=== PATIENT | female | born 1955 | race Caucasian/White ===

== ENCOUNTER → 2016-10-04 | Outpatient (CLI) | payer OTHER ==
[2014-07-23 14:20] VITALS: BP 117/63
--- NOTE | 2016-10-04 11:27 | MG ---
HISTORY: Followup from right stereotactic breast biopsy and left-sided surgical biopsy. Both biopsi es were benign. Comparison: July 28, 2015 and August 05, 2015 FINDINGS: Bilateral CC and MLO projections of the right and left breast were obtained. Scattered fibroglandul ar tissue is seen to be present. Calcifications in the right central breast and been removed. A sma ll metallic clip is seen to marked the area. The mass in the left breast with calcifications is no l onger present and has been removed also. No new dominant mass is seen. No areas of architectural dis tortion are appreciated.. No skin thickening or nipple retraction is appreciated. No pathological lymphadenopathy can be identified. Benign-appearing calcifications scattered throughout the right a nd left breasts are observed. IMPRESSION: NO RADIOGRAPHIC EVIDENCE OF MALIGNANCY. ACR CATEGORY 2 - benign findings. FOLLOW-UP EXAM 1 YEAR. Diagnostic CAD was utilized and reviewed. * 0 (ZERO) - ASSESSMENT INCOMPLETE; ADDITIONAL IMAGING IS NEEDED. * 1/ (ONE) - NEGATIVE. * 2/II (TWO) - BENIGN FINDINGS. * 3/III (THREE) - PROBABLY BENIGN FINDING; SHORT INTERVAL FOLLOW-UP SUGGESTED. * 4/IV (FOUR) - SUSPICIOUS ABNORMALITY; BIOPSY SHOULD BE CONSIDERED. * 5/V - HIGHLY SUSPICIOUS OF MALIGNANCY; BIOPSY SHOULD BE PERFORMED. A NEGATIVE X-RAY REPORT SHOULD NOT DELAY BIOPSY IF A DOMINANT OR CLINICALLY SUSPICIOUS MASS IS PRESENT; 4 TO 8 PERCENT OF CANCERS ARE NOT IDENTIFIED BY X-RAY. A NEG ATIVE REPORT MAY REINFORCE THE CLINICAL IMPRESSION. ADENOSIS AND DENSE BREASTS MAY OBSCURE AN UNDER LYING NEOPLASM. Reported By:
== END ==
LOC: RAD 09:42
PROVIDERS: ATTEND Nurse Practitioner Family
DX: R92.8 Other abnormal and inconclusive findings on diagnostic imaging of breast (principal)
CPT/HCPCS: 77066

== ENCOUNTER → 2017-08-10 | Outpatient (CLI) | payer OTHER, MEDICAID ==
[2014-07-23 14:20] VITALS: BP 117/63
--- NOTE | 2017-08-10 11:54 | RAD ---
HISTORY: Lumbosacral radiculopathy Study: Three views of the lumbar spine Comparison: None Findings: Dextrocurvature of the lumbar spine is noted and may be accentuated by patient position. The visualiz ed bony structures demonstrate diffuse osteopenia. The lumbar vertebral body heights are relatively m aintained. Degenerate facet changes are seen throughout the lumbar spine. Multilevel intervertebral d isc space narrowing is noted. Atherosclerotic changes are seen within the visualized aorta. Postsurgi felicity changes of the pelvis are noted. IMPRESSION: Degenerative changes as noted above. Reported By:
--- NOTE | 2017-08-10 13:08 | RAD ---
HISTORY: Bilateral hip pain. No history trauma given. Study: Bilateral hips: Two views each Comparison: CT scan from 09/24/2013 Findings: Moderate osteopenia is noted. The pelvic ring appears to be intact. Sacroiliac joints are intact. Surgical clips overlie the anatomic pelvis. There appears to be a moderate amount of gas, most likel y in colon overlying both hips. This is consistent with bowel containing bilateral hernias. This is well demonstrated on a CT scan from 09/24/2013 Right hip shows mild acetabular spurring and sclerosis. Mild joint space narrowing is noted. The fe moral head contour and femoral neck are intact. The left hip shows mild acetabular spurring and mild sclerosis. Mild joint space narrowing is noted. The femoral head contour and femoral neck are intact. IMPRESSION: 1. Mild degenerative changes both hips. 2. There is bowel overlying both hip joints consistent with large hernias containing bowel. This preciado s been well demonstrated on a prior CT scan. Reported By:
== END ==
LOC: RAD 10:13
PROVIDERS: ATTEND Nurse Practitioner Family
DX: M54.17 Radiculopathy, lumbosacral region (principal); M25.551 Pain in right hip; M25.552 Pain in left hip; R26.2 Difficulty in walking, not elsewhere classified
CPT/HCPCS: 72100; 73521

== ENCOUNTER → 2017-08-15 | Outpatient (CLI) | payer OTHER, MEDICAID ==
[2014-07-23 14:20] VITALS: BP 117/63
--- NOTE | 2017-08-15 16:43 | CT ---
HISTORY: Lumbar radiculopathy and difficulty walking. Study: CT lumbar spine without contrast Comparison: Lumbar spine series dated August 10, [address] abdomen/pelvis dated September 24, 2013. Technique: Multiple axial images of the lumbar spine were obtained from the thoracolumbar junction t o the sacrum without the administration of IV contrast. Sagittal and coronal reformats were performe d and reviewed. Dose reduction techniques including Automated Exposure Control (AEC) and adjustment of mA and kV were utilized. Findings: Mild dextrocurvature of the lumbar spine, which may represent positioning versus muscle spasm. No acu te fracture or listhesis. Multilevel llwt-pe-yufodach degenerative changes of the lumbar spine. No si gnificant neural foraminal narrowing or spinal canal stenosis. Vascular calcifications without eviden ce of aneurysmal dilatation. Cortical defects within the right kidney with associated nonobstructing nephroliths, likely representing remote infection. Simple appearing cysts are seen within the liver. Remaining abdominal structures are unremarkable. IMPRESSION: Chronic findings as above. Reported By:
== END ==
LOC: RAD 12:47
PROVIDERS: ATTEND Nurse Practitioner Family
DX: M54.17 Radiculopathy, lumbosacral region (principal)
CPT/HCPCS: 72131

== ENCOUNTER 2018-08-09 09:58 | Inpatient (IN) ==
[2018-08-09 10:08] VITALS: BMI 53.0
--- NOTE | 2018-08-09 10:42 | DR.DIZZY ---
HPI Time seen Time Seen by Provider: 08/09/18 10:40 PCP Primary Care Physician: HAL GARZA Complaint Chief Complaint:: PT. C/O INCREASED WEAKNESS AND FREQUENT FALLS. PT. STATES THAT SHE FELL 2 DAYS AGO AND IS UNABLE TO AMBULATE ON HER OWN. SHE REPORTS NEEDING MAXIMUM ASSISTANCE TO PERFORM ADL'S. Nurses Notes Reviewed Nurses Notes Review: Yes Source History Provided: Patient and EMS Mode of Arrival Mode of Arrival: EMS Timing Onset of Chief Complaint: 08/07/18 PMH PMH Past Medical History: Yes Past Medical History: Angina, Anxiety, Arthritis, Asthma, COPD, Depression, Diabetes, Dyslipidemia, GERD, Headaches, Hypothyroidism and Kidney Stones Past Surgical History: Yes Surgical History: Abdominal Surgery, Bowel Resection, Hysterectomy, Ortho Surgery, Tonsillectomy, Lithotripsy and Other Family History History of Family Medical Conditions: Yes Family Medical History: Diabetes Mellitus and [place] Social History Does patient currently use any type of tobacco product: No Have you used tobacco products in the last 12 months: No Type of Tobacco Use: None Does any household member use tobacco: No Alcohol Use: None Do you use any recreational Drugs:: No Lives With: Alone Lives Where: Home infectious screening In the last 2 months have you had wt loss of >10#?: NO Have you had fever, night sweats or hemotysis?: No Have you traveled outside the country in the last 6 months?: No Isolation: Standard PE Vital Signs Vitals: Temperature 97.7 F Pulse Rate [Right Radial] 82 Pulse Rate 87 Respiratory Rate 16 Blood Pressure [Right Arm] 104/51 Blood Pressure [Left Arm] 179/72 Blood Pressure 134/77 O2 Sat by Pulse Oximetry 95 ROR Labs Reviewed Result Diagrams: 08/09/18 10:30 08/09/18 10:30 Laboratory: WBC 9.8 X10^3/uL (3.6-10.0) 08/09/18 10:30 RBC 3.63 X10^6/uL (3.5-5.4) 08/09/18 10:30 Hgb 10.4 g/dL (12.0-16.0) L 08/09/18 10:30 Hct 32.3 % (36.0-47.0) L 08/09/18 10:30 MCV 88.9 fL (80.0-100.0) 08/09/18 10:30 MCH 28.8 pg (27.0-34.0) 08/09/18 10:30 MCHC 32.3 g/dL (33.0-35.0) L 08/09/18 10:30 RDW 15.1 % (11.6-16.5) 08/09/18 10:30 Plt Count 330 X10^3/uL (150.0-450.0) 08/09/18 10:30 MPV 8.5 fL (7.4-11.0) 08/09/18 10:30 Neut % (Auto) 73.1 % (42.0-75.0) 08/09/18 10:30 Lymph % (Auto) 15.3 % (21.0-51.0) L 08/09/18 10:30 [place] % (Auto) 7.6 % (0.0-13.0) 08/09/18 10:30 Eos % (Auto) 3.4 % (0.9-2.9) H 08/09/18 10:30 Baso % (Auto) 0.6 % (0.2-1.0) 08/09/18 10:30 Neut # (Auto) 7.2 x10^3/uL (2.2-4.8) H 08/09/18 10:30 Lymph # (Auto) 1.5 X10^3/uL (1.3-2.9) 08/09/18 10:30 [place] # (Auto) 0.7 x10^3/uL (0.3-0.8) 08/09/18 10:30 Eos # (Auto) 0.3 x10^3/uL (0.0-0.2) H 08/09/18 10:30 Baso # (Auto) 0.1 X10^3/uL (0.0-0.1) 08/09/18 10:30 Absolute Nucleated RBC 0.0 /100WBC 08/09/18 10:30 INR Target Range - 08/09/18 10:30 INR 0.99 (0.8-1.3) 08/09/18 10:30 APTT 28.7 SECONDS (22.9-36.5) 08/09/18 10:30 PTT Comment - 08/09/18 10:30 Sodium 137 mmol/L (136-145) 08/09/18 10:30 Corrected Sodium 145 mmol/L (136-145) 08/09/18 10:30 Potassium 4.4 mmol/L (3.5-5.1) 08/09/18 10:30 Chloride 100 mmol/L (98-107) 08/09/18 10:30 Carbon Dioxide 31.9 mmol/L (21-32) 08/09/18 10:30 BUN 36 mg/dL (7-18) H 08/09/18 10:30 Creatinine 1.75 mg/dL (0.55-1.02) H 08/09/18 10:30 Est GFR (MDRD) Af Amer 38 (>60) L 08/09/18 10:30 Est GFR (MDRD) Non-Af 31 (>60) L 08/09/18 10:30 Glucose 414 mg/dL (65-99) H 08/09/18 10:30 POC Glucose (mg/dL) 384 mg/dL (65-99) H 08/09/18 13:05 Lactic Acid 1.5 mmol/L (0.4-2.0) 08/09/18 10:30 Calcium 9.6 mg/dL (8.5-10.1) 08/09/18 10:30 Corrected Calcium 10.5 mg/dL (8.5-10.1) H 08/09/18 10:30 Total Bilirubin 0.30 mg/dL (0.2-1.0) 08/09/18 10:30 AST 19 Units/L (15-37) 08/09/18 10:30 ALT 14 Units/L (12-78) 08/09/18 10:30 Alkaline Phosphatase 60 Units/L (46-116) 08/09/18 10:30 Creatine Kinase 464 Units/L (26-192) H 08/09/18 10:30 CK-MB (CK-2) 5.1 ng/mL (0-4.0) H* 08/09/18 10:30 CK/CKMB % Calc 1.1 % (<4) 08/09/18 10:30 Troponin I < 0.02 ng/mL (0-1.5) 08/09/18 10:30 C-Reactive Protein 102.40 mg/L (0-3.0) H 08/09/18 10:30 B-Natriuretic Peptide 15.5 pg/mL (0-79) 08/09/18 10:30 Total Protein 6.8 g/dL (6.4-8.2) 08/09/18 10:30 Albumin 2.9 g/dL (3.4-5.0) L 08/09/18 10:30 Globulin 3.9 g/dL (2.5-4.5) 08/09/18 10:30 Albumin/Globulin Ratio 0.7 Ratio (1.1-2.1) L 08/09/18 10:30 Amylase 8 Units/L (25-115) L 08/09/18 10:30 Lipase 140 Units/L (73-393) 08/09/18 10:30 Specimen Type Catherized urine 08/09/18 10:56 Urine Color Straw (YELLOW) 08/09/18 10:56 Urine Appearance Slightly hazy (CLEAR) 08/09/18 10:56 Urine pH 5.0 (5.0 - 8.0) 08/09/18 10:56 Ur Specific [place] 1.010 (1.000-1.030) 08/09/18 10:56 Urine Protein Negative (NEGATIVE) 08/09/18 10:56 Urine Glucose (UA) 4+ (NEGATIVE) 08/09/18 10:56 Urine Ketones Negative (NEGATIVE) 08/09/18 10:56 Urine Occult Blood 2+ (NEGATIVE) 08/09/18 10:56 Urine Nitrite Negative (NEGATIVE) 08/09/18 10:56 Urine Bilirubin Negative (NEGATIVE) 08/09/18 10:56 Urine Urobilinogen Normal (NORMAL) 08/09/18 10:56 Ur Leukocyte Esterase 2+ (NEGATIVE) 08/09/18 10:56 Urine RBC 3-5 /HPF (NONE SEEN) 08/09/18 10:56 Urine WBC 10-20 /HPF (NONE SEEN) 08/09/18 10:56 Ur Squamous Epith Cells Few /HPF (NEGATIVE) 08/09/18 10:56 Urine Bacteria Trace /HPF (NEGATIVE) 08/09/18 10:56 Ur Culture Indicated? Yes/culture set up 08/09/18 10:56 Acetone, Semi-Quant Negative (NEGATIVE) 08/09/18 10:30
[2018-08-09 10:56] LABS: BASOPHILS # (AUTO) 0.1 X10^3/uL (0.0-0.1); BASOPHILS % (AUTO) 0.6 % (0.2-1.0); EOSINOPHILS # (AUTO) 0.3 x10^3/uL (0.0-0.2); EOSINOPHILS % (AUTO) 3.4 % (0.9-2.9); HEMATOCRIT 32.3 % (36.0-47.0); HEMOGLOBIN 10.4 g/dL (12.0-16.0); LYMPHOCYTES # (AUTO) 1.5 X10^3/uL (1.3-2.9); LYMPHOCYTES % (AUTO) 15.3 % (21.0-51.0); MEAN CORPUSCULAR HEMOGLOBIN 28.8 pg (27.0-34.0); MEAN CORPUSCULAR HGB CONC 32.3 g/dL (33.0-35.0); MEAN CORPUSCULAR VOLUME 88.9 fL (80.0-100.0); MEAN PLATELET VOLUME 8.5 fL (7.4-11.0); MONOCYTES # (AUTO) 0.7 x10^3/uL (0.3-0.8); MONOCYTES % (AUTO) 7.6 % (0.0-13.0); NEUTROPHILS # (AUTO) 7.2 x10^3/uL (2.2-4.8); NEUTROPHILS % (AUTO) 73.1 % (42.0-75.0); PLATELET COUNT 330 X10^3/uL (150.0-450.0); RED BLOOD COUNT 3.63 X10^6/uL (3.5-5.4); RED CELL DISTRIBUTION WIDTH 15.1 % (11.6-16.5); WHITE BLOOD COUNT 9.8 X10^3/uL (3.6-10.0)
[2018-08-09] MEDS ORDERED: ZOFRAN INJ 4 MG VIAL IVP ONE (11:05)
[2018-08-09] MEDS ORDERED: ZOFRAN INJ 4 MG VIAL ONE (11:06)
[2018-08-09 11:13] LABS: BLOOD UREA NITROGEN 36 mg/dL (7-18); CALCIUM 9.6 mg/dL (8.5-10.1); CARBON DIOXIDE 31.9 mmol/L (21-32); CHLORIDE 100 mmol/L (98-107); COR NA(FOR HYPERGLY) 145 mmol/L (136-145); CREATININE 1.75 mg/dL (0.55-1.02); SODIUM 137 mmol/L (136-145); TROPONIN I < 0.02 ng/mL (0-1.5); eGFR NON BLACK RACES 31 (>60)
[2018-08-09 11:14] LABS: LACTIC ACID 1.5 mmol/L (0.4-2.0)
[2018-08-09 11:16] LABS: BILIRUBIN,URINE NEGATIVE (NEGATIVE); BLOOD/HEMOGLOBIN,URINE 2+ (NEGATIVE); GLUCOSE, URINE 4+ (NEGATIVE); KETONES,URINE NEGATIVE (NEGATIVE); LEUKOCYTE ESTERASE ,URINE 2+ (NEGATIVE); NITRITES,URINE NEGATIVE (NEGATIVE); PROTEIN,URINE NEGATIVE (NEGATIVE); UROBILINOGEN,URINE NORMAL (NORMAL)
[2018-08-09 11:17] LABS: APPEARANCE,URINE SLIGHTLY HAZY (CLEAR); COLOR,URINE STRAW (YELLOW)
[2018-08-09 11:25] LABS: BACTERIA,URINE TRACE /HPF (NEGATIVE); SQUAMOUS EPITHELIAL CELL,UR FEW /HPF (NEGATIVE)
[2018-08-09 11:36] LABS: ALANINE AMINOTRANSFERASE 14 Units/L (12-78); ALBUMIN 2.9 g/dL (3.4-5.0); ALKALINE PHOSPHATASE 60 Units/L (46-116); ASPARTATE AMINO TRANSFERASE 19 Units/L (15-37); CKMB % 1.1 % (<4); COR CA(FOR HYPOALB) 10.5 mg/dL (8.5-10.1); CREATINE KINASE 464 Units/L (26-192); TOTAL PROTEIN 6.8 g/dL (6.4-8.2)
[2018-08-09 11:42] LABS: CREATINE KINASE MB 5.1 ng/mL (0-4.0)
--- NOTE | 2018-08-09 12:55 | RAD ---
HISTORY: Weakness for 2 days. Study: AP portable chest Comparison: 10/03/2012 Findings: Mild chronic interstitial scarring is noted. Borderline cardiomegaly is noted. A Port-A-Cath is present on the left and the tip is at the cavoatrial junction. Moderate osteopenia is noted. No acute bony abnormalities are identified. IMPRESSION: 1. Borderline cardiomegaly without evidence of failure. 2. No radiographic evidence of acute cardiopulmonary disease or significant change is noted when compared to the prior examination. Reported By:
[2018-08-09] MEDS ORDERED: ROCEPHIN VIAL 1 GRAM ONE (13:06)
[2018-08-09] MEDS ORDERED: ROCEPHIN VIAL 1 GRAM IVP ONE (13:11)
[2018-08-09] MEDS ORDERED: HumuLIN R SUBCUT ONE (13:56)
[2018-08-09] MEDS ORDERED: TYLENOL #3 TAB (W/CODEINE) PO ONE (14:09)
[2018-08-09] MEDS ORDERED: COLACE CAP 100 MG PO PRN (14:38)
[2018-08-09] MEDS ORDERED: ACETAMINOPHEN CODEINE PO PRN (14:38)
[2018-08-09] MEDS ORDERED: VITAMIN D (1.25MG) PO SCH (14:38)
[2018-08-09] MEDS ORDERED: ZOFRAN TAB 4 MG PO PRN (14:38)
[2018-08-09] MEDS: NEURONTIN CAP 400 MG PO SCH ×2 (16:01→21:42)
[2018-08-09] MEDS: NS 1000 ML 1,000 ML IV SCH (16:01)
[2018-08-09] MEDS: BENTYL CAP 10 MG PO SCH ×2 (16:02→21:42)
[2018-08-09] MEDS: HEMOCYTE-PLUS PO SCH (16:02)
[2018-08-09] MEDS: NORCO 10/325 TAB PO PRN (16:46)
[2018-08-09] MEDS: HumuLIN R SC PRN (17:19)
[2018-08-09] MEDS ORDERED: NYSTATIN POWDER ONE (17:24)
[2018-08-09] MEDS ORDERED: NYSTATIN POWDER TOP ONE (17:33)
[2018-08-09 18:14] LABS: CKMB % 0.9 % (<4); CREATINE KINASE 703 Units/L (26-192); TROPONIN I < 0.02 ng/mL (0-1.5)
[2018-08-09 18:18] LABS: CREATINE KINASE MB 6.3 ng/mL (0-4.0)
[2018-08-09] MEDS: LANTUS SC SCH (21:41)
[2018-08-09] MEDS: SNACK - Diabetic Appropriate PO SCH (21:42)
[2018-08-09] MEDS: COREG TAB 3.125 MG PO SCH (21:43)
[2018-08-09] MEDS: ZOCOR TAB 40 MG PO SCH (21:43)
[2018-08-09] MEDS: SINEMET (PLAIN) 10/100 MG PO SCH (21:43)
[2018-08-09] MEDS: MICRO K EXTEN CAP 10 MEQ PO SCH (21:44)
[2018-08-09] MEDS: PEPCID TAB 20 MG PO SCH (21:44)
[2018-08-09] MEDS: TRICOR TAB 160 MG PO SCH (21:44)
[2018-08-09] MEDS: NYSTATIN POWDER TOP SCH (21:44)
[2018-08-09] MEDS: CYMBALTA PO SCH (21:45)
[2018-08-09] MEDS: XANAX PO PRN (21:45)
[2018-08-09] MEDS: GLUCOTROL PO SCH (21:45)
[2018-08-10 00:28] LABS: CKMB % 0.8 % (<4); CREATINE KINASE 661 Units/L (26-192); TROPONIN I < 0.02 ng/mL (0-1.5)
[2018-08-10] MEDS: NS 1000 ML 1,000 ML IV SCH ×2 (03:35→16:42)
[2018-08-10] MEDS: NORCO 10/325 TAB PO PRN ×3 (03:35→20:39)
[2018-08-10] MEDS: NEURONTIN CAP 400 MG PO SCH ×3 (06:10→21:14)
[2018-08-10 06:25] LABS: BASOPHILS # (AUTO) 0.1 X10^3/uL (0.0-0.1); BASOPHILS % (AUTO) 0.8 % (0.2-1.0); EOSINOPHILS # (AUTO) 0.5 x10^3/uL (0.0-0.2); EOSINOPHILS % (AUTO) 5.1 % (0.9-2.9); HEMATOCRIT 30.9 % (36.0-47.0); HEMOGLOBIN 10.2 g/dL (12.0-16.0); LYMPHOCYTES # (AUTO) 1.8 X10^3/uL (1.3-2.9); LYMPHOCYTES % (AUTO) 17.7 % (21.0-51.0); MEAN CORPUSCULAR HEMOGLOBIN 29.2 pg (27.0-34.0); MEAN CORPUSCULAR HGB CONC 32.9 g/dL (33.0-35.0); MEAN CORPUSCULAR VOLUME 88.7 fL (80.0-100.0); MEAN PLATELET VOLUME 8.5 fL (7.4-11.0); MONOCYTES # (AUTO) 0.9 x10^3/uL (0.3-0.8); MONOCYTES % (AUTO) 9.3 % (0.0-13.0); NEUTROPHILS # (AUTO) 6.7 x10^3/uL (2.2-4.8); NEUTROPHILS % (AUTO) 67.1 % (42.0-75.0); PLATELET COUNT 286 X10^3/uL (150.0-450.0); RED BLOOD COUNT 3.49 X10^6/uL (3.5-5.4); RED CELL DISTRIBUTION WIDTH 15.3 % (11.6-16.5)
[2018-08-10 07:27] LABS: ALBUMIN 2.6 g/dL (3.4-5.0); CALCIUM 8.9 mg/dL (8.5-10.1); CARBON DIOXIDE 28.5 mmol/L (21-32); CHOL/HDL RATIO 2.9 (0.0-5.0); CREATININE 1.53 mg/dL (0.55-1.02); MAGNESIUM 1.8 mg/dL (1.7-2.9); TOTAL PROTEIN 6.2 g/dL (6.4-8.2)
[2018-08-10] MEDS: MICRO K EXTEN CAP 10 MEQ PO SCH ×2 (08:53→20:27)
[2018-08-10] MEDS: PEPCID TAB 20 MG PO SCH ×2 (08:53→20:27)
[2018-08-10] MEDS: LASIX PO SCH (08:53)
[2018-08-10] MEDS: HEMOCYTE-PLUS PO SCH (08:53)
[2018-08-10] MEDS: BENTYL CAP 10 MG PO SCH ×4 (08:53→20:26)
[2018-08-10] MEDS: COREG TAB 3.125 MG PO SCH ×2 (08:53→20:27)
[2018-08-10] MEDS: SINEMET (PLAIN) 10/100 MG PO SCH ×2 (08:54→20:27)
[2018-08-10] MEDS: GLUCOTROL PO SCH ×2 (08:54→20:28)
[2018-08-10] MEDS: SYNTHROID 100 mcg TAB PO SCH (08:54)
[2018-08-10] MEDS: LANTUS SC SCH ×2 (08:54→20:30)
[2018-08-10] MEDS: ABILIFY PO SCH (09:04)
[2018-08-10] MEDS: XANAX PO PRN ×2 (09:04→20:39)
[2018-08-10] MEDS: NYSTATIN POWDER TOP SCH ×2 (09:05→20:36)
[2018-08-10] MEDS ORDERED: NORCO 10/325 TAB ONE (11:13)
[2018-08-10] MEDS: ROCEPHIN VIAL 1 GRAM IVP SCH (11:21)
[2018-08-10] MEDS ORDERED: SALINE 3% 15 ML NEB TX NEB ONE (11:56)
[2018-08-10] MEDS: HumuLIN R SC PRN ×2 (12:50→17:46)
[2018-08-10] MEDS ORDERED: FLUVIRIN IM ONE (16:23)
[2018-08-10] MEDS: FLUVIRIN IM ONE ×2 (16:42→16:44)
[2018-08-10] MEDS: LOVENOX INJ 30 MG SYR SC SCH (17:46)
--- NOTE | 2018-08-10 19:01 | DR.H&P ---
H&P - History & Physical for Day of: H&P Date: 08/09/18 - Chief Complaint Chief Complaint: PT. C/O INCREASED WEAKNESS AND FREQUENT FALLS, LOWER LEG REDNESS - History of Present Illness History of Present Illness: 63WF ER ADMISSION WITH CO INCREASED WEAKNESS AND FREQUENT FALLS. PT STATES THAT SHE FELL 2 DAYS AGO AND IS UNABLE TO AMBULATE ON HER OWN. SHE REPORTS NEEDING MAXIMUM ASSISTANCE TO PERFORM ADL'S. PT HAS CO INCREASED SOB AND LOWER EXTREMITY EDEMA. PT CO REDNESS TO LOWER LEGS. PT HAS PMH OF HTN, OA, COPD, [place], MOSES, CAD. PT ADMITTED FOR TREATMENT OF ACUTE ILLNESS INCLUDING UTI AND LOWER EXTREMITY CELLULITIS. - Past Medical History Past Medical History: Angina, Dyslipidemia, Diabetes, Depression, Anxiety, Hypothyroidism, COPD, Asthma, GERD, Arthritis, Kidney Stones, Headaches Additional Medical History: MORBID OBESITY; VITAMIN B12 DEFICIENCY; LUMBOSACAL RADICULOPATHY - Past Surgical History Surgical History: Abdominal Surgery, Bowel Resection, Hysterectomy, Ortho Surgery, Tonsillectomy, Lithotripsy - Family History Family Medical History: Diabetes Mellitus, [place], Hypertension - Social History Does patient currently use any type of tobacco product: No Have you used tobacco products in the last 12 months: No Type of Tobacco Use: None Does any household member use tobacco: No Alcohol Use: None Drug Use: None - Medications Home Medications: oxycodone Allergy (Verified 08/10/18 16:18) CONTINUE taking the following medications dicyclomine 20 mg PO QID 08/09/18 [History] - Review of Systems Constitutional: Weakness Eyes: No Symptoms Reported ENT: No Symptoms Reported Respiratory: Shortness of Breath, Wheezing Cardiovascular: No Symptoms Reported, Edema Gastrointestinal: No Symptoms Reported Genitourinary: No Symptoms Reported Musculoskeletal: Back Pain, Leg Pain Skin: Other (REDNESS TO LEG) Neurological: Weakness - Physical Exam Vital Signs: Temperature 97.7 F Pulse Rate [Right Radial] 72 Pulse Rate 73 Respiratory Rate 20 Blood Pressure [Right Arm] 118/60 Blood Pressure [Left Arm] 179/72 Blood Pressure 134/77 O2 Sat by Pulse Oximetry 99 Oriented: Normal Eyes: Normal Ear: Normal Nose: Normal Throat: Normal Respiratory: RLL Diminished, LLL Diminished Cardiovascular: Normal, Edema : Normal Auscultation: Bowel Sounds: Normal Palpation: Normal Skin: Red, Tender, Hot (BILATERAL LOWER EXTREMITY EDEMA WITH DIFFUSE REDNESS AND INCREASED WARMTH) Musculoskeletal: Right, Left, Leg, Ankle, Foot, Back:Lumbar, Swelling, Tender, Motor Deficit, Instability, Crepitance Psychiatric: Anxiety Affect: Anxious Speech Pattern: Clear, Appropriate - Assessment/Plan (1) COPD exacerbation Status: Acute Plan: ADMIT, RESP CONSULT, SUPPLEMENTAL O2. BC AND SPUTUM CULTURE. ADMISSION LABS AND CXR. VERIFY HOME MEDICATION, URINE CULTURE, IV ATBX (2) Cellulitis, leg Status: Acute (3) Anxiety Status: Chronic (4) Arthritis Status: Chronic (5) Chronic obstructive lung disease Status: Chronic (6) Depression Status: Chronic (7) Diabetes mellitus type 2 Status: Chronic (8) Gastroesophageal reflux disease Status: Chronic (9) Hyperglycemia Status: Acute - Allergies Allergies/Adverse Reactions: Allergies Allergy/AdvReac Type Severity Reaction Status Date / Time oxycodone Allergy Verified 08/10/18 16:18
--- NOTE | 2018-08-10 19:05 | PCM.PROG ---
Progress Note - Progress Note for Day of Date of Exam: 08/10/18 - Subjective Subjective: 63 WF ER ADMISSION WITH UTI, COPD EXACERBATION AND LOWER EXTREMITY CELLULITIS. PT HAD PENDING URINE SPUTUM AND BLOOD CULTURES. PT STARTED ON IV ROCEPHIN, WITH RESP THERAPY AND SUPPLEMENTAL O2. PT HOME MEDICATION FOR BP CONTROL RESUMED. PT CURRENTLY ON [employer] COVERAGE FOR HYPERGLYCEMIA. - Past Medical Family Social History Allergies: Allergies oxycodone Allergy (Verified 08/10/18 16:18) - Review of Systems ROS: No change since H&P - Vital Signs and I&O's Vital Signs: Temperature 97.7 F Pulse Rate [Right Radial] 72 Pulse Rate 73 Respiratory Rate 20 Blood Pressure [Right Arm] 118/60 Blood Pressure [Left Arm] 179/72 Blood Pressure 134/77 O2 Sat by Pulse Oximetry 99 Intake and Output: Intake & Output 08/08/18 08/09/18 08/10/18 08/11/18 11:59 11:59 11:59 11:59 Intake Total 1999 / 1999 1505 / 1505 Output Total 2450 / 2450 2200 / 2200 Balance -450 / -450 -695 / -695 - Physical Exam Oriented: Normal Eyes: Normal Ear: Normal Nose: Normal Throat: Normal Cardiovascular: Normal, Edema : Normal Auscultation: Bowel Sounds: Normal Tenderness: Normal Skin: Red, Tender, Hot (BILATERAL LOWER EXTREMITY EDEMA WITH DIFFUSE REDNESS AND INCREASED WARMTH) Musculoskeletal: Right, Left, Leg, Ankle, Foot, Back:Lumbar, Swelling, Tender, Motor Deficit, Instability, Crepitance Psychiatric: Anxiety Affect: Anxious Speech Pattern: Clear, Appropriate - Laboratory and Diagnostics Result Diagrams: 08/10/18 05:27 08/10/18 05:27 Labs: 08/10/18 12:40 Sputum - Expectorated Sputum - Final 08/09/18 10:56 Urine,Catheterized Urine Culture - Preliminary Laboratory WBC 10.0 X10^3/uL (3.6-10.0) 08/10/18 05:27 RBC 3.49 X10^6/uL (3.5-5.4) L 08/10/18 05:27 Hgb 10.2 g/dL (12.0-16.0) L 08/10/18 05:27 Hct 30.9 % (36.0-47.0) L 08/10/18 05:27 MCV 88.7 fL (80.0-100.0) 08/10/18 05:27 MCH 29.2 pg (27.0-34.0) 08/10/18 05:27 MCHC 32.9 g/dL (33.0-35.0) L 08/10/18 05:27 RDW 15.3 % (11.6-16.5) 08/10/18 05:27 Plt Count 286 X10^3/uL (150.0-450.0) 08/10/18 05:27 MPV 8.5 fL (7.4-11.0) 08/10/18 05:27 Neut % (Auto) 67.1 % (42.0-75.0) 08/10/18 05:27 Lymph % (Auto) 17.7 % (21.0-51.0) L 08/10/18 05:27 [place] % (Auto) 9.3 % (0.0-13.0) 08/10/18 05:27 Eos % (Auto) 5.1 % (0.9-2.9) H 08/10/18 05:27 Baso % (Auto) 0.8 % (0.2-1.0) 08/10/18 05:27 Neut # (Auto) 6.7 x10^3/uL (2.2-4.8) H 08/10/18 05:27 Lymph # (Auto) 1.8 X10^3/uL (1.3-2.9) 08/10/18 05:27 [place] # (Auto) 0.9 x10^3/uL (0.3-0.8) H 08/10/18 05:27 Eos # (Auto) 0.5 x10^3/uL (0.0-0.2) H 08/10/18 05:27 Baso # (Auto) 0.1 X10^3/uL (0.0-0.1) 08/10/18 05:27 Absolute Nucleated RBC 0.0 /100WBC 08/10/18 05:27 INR Target Range - 08/09/18 10:30 INR 0.99 (0.8-1.3) 08/09/18 10:30 APTT 28.7 SECONDS (22.9-36.5) 08/09/18 10:30 PTT Comment - 08/09/18 10:30 Sodium 140 mmol/L (136-145) 08/10/18 05:27 Corrected Sodium 142 mmol/L (136-145) 08/10/18 05:27 Potassium 4.2 mmol/L (3.5-5.1) 08/10/18 05:27 Chloride 103 mmol/L (98-107) 08/10/18 05:27 Carbon Dioxide 28.5 mmol/L (21-32) 08/10/18 05:27 BUN 31 mg/dL (7-18) H 08/10/18 05:27 Creatinine 1.53 mg/dL (0.55-1.02) H 08/10/18 05:27 Est GFR (MDRD) Af Amer 44 (>60) L 08/10/18 05:27 Est GFR (MDRD) Non-Af 36 (>60) L 08/10/18 05:27 Glucose 165 mg/dL (65-99) H 08/10/18 05:27 POC Glucose (mg/dL) 249 mg/dL (65-99) H 08/10/18 16:33 Lactic Acid 1.5 mmol/L (0.4-2.0) 08/09/18 10:30 Calcium 8.9 mg/dL (8.5-10.1) 08/10/18 05:27 Corrected Calcium 10.0 mg/dL (8.5-10.1) 08/10/18 05:27 Magnesium 1.8 mg/dL (1.7-2.9) 08/10/18 05:27 Total Bilirubin 0.20 mg/dL (0.2-1.0) 08/10/18 05:27 AST 27 Units/L (15-37) 08/10/18 05:27 ALT 9 Units/L (12-78) L 08/10/18 05:27 Alkaline Phosphatase 54 Units/L (46-116) 08/10/18 05:27 Creatine Kinase 661 Units/L (26-192) H 08/09/18 23:25 CK-MB (CK-2) 5.0 ng/mL (0-4.0) H* 08/09/18 23:25 CK/CKMB % Calc 0.8 % (<4) 08/09/18 23:25 Troponin I < 0.02 ng/mL (0-1.5) 08/09/18 23:25 C-Reactive Protein 102.40 mg/L (0-3.0) H 08/09/18 10:30 B-Natriuretic Peptide 15.5 pg/mL (0-79) 08/09/18 10:30 Total Protein 6.2 g/dL (6.4-8.2) L 08/10/18 05:27 Albumin 2.6 g/dL (3.4-5.0) L 08/10/18 05:27 Globulin 3.6 g/dL (2.5-4.5) 08/10/18 05:27 Albumin/Globulin Ratio 0.7 Ratio (1.1-2.1) L 08/10/18 05:27 Triglycerides 146 mg/dL (0-150) 08/10/18 05:27 Cholesterol 107 mg/dL (0-200) 08/10/18 05:27 LDL Cholesterol, Calc 41 mg/dL (0-100) 08/10/18 05:27 HDL Cholesterol 37 mg/dL (40-60) L 08/10/18 05:27 Cholesterol/HDL Ratio 2.9 (0.0-5.0) 08/10/18 05:27 Amylase 8 Units/L (25-115) L 08/09/18 10:30 Lipase 140 Units/L (73-393) 08/09/18 10:30 Specimen Type Catherized urine 08/09/18 10:56 Urine Color Straw (YELLOW) 08/09/18 10:56 Urine Appearance Slightly hazy (CLEAR) 08/09/18 10:56 Urine pH 5.0 (5.0 - 8.0) 08/09/18 10:56 Ur Specific [place] 1.010 (1.000-1.030) 08/09/18 10:56 Urine Protein Negative (NEGATIVE) 08/09/18 10:56 Urine Glucose (UA) 4+ (NEGATIVE) 08/09/18 10:56 Urine Ketones Negative (NEGATIVE) 08/09/18 10:56 Urine Occult Blood 2+ (NEGATIVE) 08/09/18 10:56 Urine Nitrite Negative (NEGATIVE) 08/09/18 10:56 Urine Bilirubin Negative (NEGATIVE) 08/09/18 10:56 Urine Urobilinogen Normal (NORMAL) 08/09/18 10:56 Ur Leukocyte Esterase 2+ (NEGATIVE) 08/09/18 10:56 Urine RBC 3-5 /HPF (NONE SEEN) 08/09/18 10:56 Urine WBC 10-20 /HPF (NONE SEEN) 08/09/18 10:56 Ur Squamous Epith Cells Few /HPF (NEGATIVE) 08/09/18 10:56 Urine Bacteria Trace /HPF (NEGATIVE) 08/09/18 10:56 Ur Culture Indicated? Yes/culture set up 08/09/18 10:56 Acetone, Semi-Quant Negative (NEGATIVE) 08/09/18 10:30 - Plan (1) COPD exacerbation Status: Acute Plan: CONTINUE RESP CONSULT, SUPPLEMENTAL O2. BC AND SPUTUM CULTURE COLLECTED ON ADMISSION. AM LABS AND CXR. VERIFY HOME MEDICATION, URINE CULTURE, IV ATBX. PHYSICAL THERAPY CONSULT, BLOOD SUGAR CONTROL (2) Cellulitis, leg Status: Acute (3) Anxiety Status: Chronic (4) Arthritis Status: Chronic (5) Chronic obstructive lung disease Status: Chronic (6) Depression Status: Chronic (7) Diabetes mellitus type 2 Status: Chronic (8) Gastroesophageal reflux disease Status: Chronic (9) Hyperglycemia Status: Acute
[2018-08-10] MEDS: TRICOR TAB 160 MG PO SCH (20:26)
[2018-08-10] MEDS: ZOCOR TAB 40 MG PO SCH (20:27)
[2018-08-10] MEDS: CYMBALTA PO SCH (20:31)
[2018-08-10] MEDS: SNACK - Diabetic Appropriate PO SCH (20:31)
[2018-08-10] MEDS: MAGNESIUM SULFATE 1 GRAM/100 mL PREMIX 2 G/200 ML BAG IV SCH (23:07)
[2018-08-11] MEDS: MAGNESIUM SULFATE 1 GRAM/100 mL PREMIX 2 G/200 ML BAG IV SCH (00:35)
[2018-08-11] MEDS: NS 1000 ML 1,000 ML IV SCH ×2 (05:03→17:38)
[2018-08-11 05:21] LABS: BASOPHILS # (AUTO) 0.1 X10^3/uL (0.0-0.1); BASOPHILS % (AUTO) 0.7 % (0.2-1.0); EOSINOPHILS # (AUTO) 0.6 x10^3/uL (0.0-0.2); EOSINOPHILS % (AUTO) 5.8 % (0.9-2.9); HEMATOCRIT 30.4 % (36.0-47.0); HEMOGLOBIN 9.8 g/dL (12.0-16.0); MEAN CORPUSCULAR HEMOGLOBIN 28.7 pg (27.0-34.0); MEAN CORPUSCULAR HGB CONC 32.1 g/dL (33.0-35.0); MEAN CORPUSCULAR VOLUME 89.4 fL (80.0-100.0); MEAN PLATELET VOLUME 8.7 fL (7.4-11.0); MONOCYTES # (AUTO) 0.9 x10^3/uL (0.3-0.8); MONOCYTES % (AUTO) 8.6 % (0.0-13.0); NEUTROPHILS % (AUTO) 65.9 % (42.0-75.0); PLATELET COUNT 294 X10^3/uL (150.0-450.0); RED CELL DISTRIBUTION WIDTH 14.6 % (11.6-16.5)
[2018-08-11] MEDS: NEURONTIN CAP 400 MG PO SCH ×3 (05:21→21:06)
[2018-08-11 05:25] LABS: ALBUMIN 2.2 g/dL (3.4-5.0); CALCIUM 8.2 mg/dL (8.5-10.1); COR CA(FOR HYPOALB) 9.6 mg/dL (8.5-10.1); CREATININE 1.38 mg/dL (0.55-1.02); MAGNESIUM 2.1 mg/dL (1.7-2.9); TOTAL PROTEIN 5.6 g/dL (6.4-8.2)
[2018-08-11] MEDS: HumuLIN R SC PRN ×4 (05:34→21:13)
[2018-08-11 05:36] LABS: PLATELET MORPHOLOGY COMMENT NORMAL (NORMAL); WHITE BLOOD COUNT 11.4 X10^3/uL (3.6-10.0)
--- NOTE | 2018-08-11 06:19 | RAD ---
HISTORY: Cough, shortness of breath Study: Chest AP portable Comparison: 08/09/2018 Findings: There is a poor present on the left. The heart remains enlarged. No congestive heart failure is noted. No acute alveolar infiltrates or pleural effusions are identified. The bony thorax is unremarkable. IMPRESSION: Mild cardiomegaly without congestive heart failure Reported By:
[2018-08-11] MEDS: ABILIFY PO SCH (08:22)
[2018-08-11] MEDS: ROCEPHIN VIAL 1 GRAM IVP SCH (08:22)
[2018-08-11] MEDS: SYNTHROID 100 mcg TAB PO SCH (08:23)
[2018-08-11] MEDS: SINEMET (PLAIN) 10/100 MG PO SCH ×2 (08:23→21:04)
[2018-08-11] MEDS: HEMOCYTE-PLUS PO SCH (08:23)
[2018-08-11] MEDS: BENTYL CAP 10 MG PO SCH ×4 (08:23→21:06)
[2018-08-11] MEDS: COREG TAB 3.125 MG PO SCH ×2 (08:23→21:04)
[2018-08-11] MEDS: GLUCOTROL PO SCH ×2 (08:23→21:06)
[2018-08-11] MEDS: MICRO K EXTEN CAP 10 MEQ PO SCH ×2 (08:23→21:04)
[2018-08-11] MEDS: LASIX PO SCH (08:23)
[2018-08-11] MEDS: NYSTATIN POWDER TOP SCH ×2 (08:24→21:07)
[2018-08-11] MEDS: PEPCID TAB 20 MG PO SCH ×2 (08:24→21:04)
[2018-08-11] MEDS: LANTUS SC SCH ×2 (08:25→21:06)
[2018-08-11] MEDS: LOVENOX INJ 30 MG SYR SC SCH (08:25)
--- NOTE | 2018-08-11 13:28 | PCM.PROG ---
Progress Note - Progress Note for Day of Date of Exam: 08/11/18 - Subjective Subjective: 63 WF ER ADMISSION WITH UTI, COPD EXACERBATION AND LOWER EXTREMITY CELLULITIS. PT HAD BLOOD CULTURES COLLECTED ON ADMISSION, NEGATIVE AT THIS TIME. PT HAD UTI WITH CULTURE +PROTEUS SENSATIVE TO ROCEPHIN.PT CONTINUES TO CO WEAKNESS AND PAIN WORSE IN [place]. PT AND FAMILY ASKING FOR REHAB PLACEMENT. RESP THERAPY AND SUPPLEMENTAL O2. PT HOME MEDICATION FOR BP CONTROL RESUMED. PT CURRENTLY ON SSI COVERAGE FOR HYPERGLYCEMIA. - Past Medical Family Social History Past Med/Fam/Surg Hx: No changes since H&P Allergies: Allergies oxycodone Allergy (Verified 08/10/18 16:18) - Review of Systems ROS: No change since H&P - Vital Signs and I&O's Vital Signs: Temperature 97.6 F Pulse Rate [Right Radial] 78 Pulse Rate 73 Respiratory Rate 20 Blood Pressure [Right Arm] 119/58 Blood Pressure [Left Arm] 179/72 Blood Pressure 134/77 O2 Sat by Pulse Oximetry 100 Intake and Output: Intake & Output 08/09/18 08/10/18 08/11/18 08/12/18 11:59 11:59 11:59 11:59 Intake Total 1999 / 1999 3545 / 3545 Output Total 2450 / 2450 3400 / 3400 Balance -450 / -450 145 / 145 - Physical Exam Oriented: Normal Eyes: Normal Ear: Normal Nose: Normal Throat: Normal Respiratory: Diminished Cardiovascular: Normal, Edema : Normal Auscultation: Bowel Sounds: Normal Tenderness: Normal Skin: Red, Tender, Hot (BILATERAL LOWER EXTREMITY EDEMA WITH DIFFUSE REDNESS AND INCREASED WARMTH) Musculoskeletal: Right, Left, Leg, Ankle, Foot, Back:Lumbar, Swelling, Tender, Motor Deficit, Instability, Crepitance Psychiatric: Anxiety Affect: Anxious Speech Pattern: Clear, Appropriate - Laboratory and Diagnostics Result Diagrams: 08/11/18 05:00 08/11/18 05:00 Labs: 08/09/18 10:39 Blood Blood Culture - Preliminary 08/09/18 10:30 Blood Blood Culture - Preliminary 08/10/18 12:40 Sputum - Expectorated Sputum Sputum Culture - Preliminary 08/10/18 12:40 Sputum - Expectorated Sputum - Final 08/09/18 10:56 Urine,Catheterized Urine Culture - Final [facility] WBC 11.4 X10^3/uL (3.6-10.0) H 08/11/18 05:00 RBC 3.40 X10^6/uL (3.5-5.4) L 08/11/18 05:00 Hgb 9.8 g/dL (12.0-16.0) L 08/11/18 05:00 Hct 30.4 % (36.0-47.0) L 08/11/18 05:00 MCV 89.4 fL (80.0-100.0) 08/11/18 05:00 MCH 28.7 pg (27.0-34.0) 08/11/18 05:00 MCHC 32.1 g/dL (33.0-35.0) L 08/11/18 05:00 RDW 14.6 % (11.6-16.5) 08/11/18 05:00 Plt Count 294 X10^3/uL (150.0-450.0) 08/11/18 05:00 Plt Count Comment Adequate (ADEQUATE) 08/11/18 05:00 MPV 8.7 fL (7.4-11.0) 08/11/18 05:00 Neut % (Auto) 65.9 % (42.0-75.0) 08/11/18 05:00 Lymph % (Auto) 19.0 % (21.0-51.0) L 08/11/18 05:00 [place] % (Auto) 8.6 % (0.0-13.0) 08/11/18 05:00 Eos % (Auto) 5.8 % (0.9-2.9) H 08/11/18 05:00 Baso % (Auto) 0.7 % (0.2-1.0) 08/11/18 05:00 Neut # (Auto) 7.0 x10^3/uL (2.2-4.8) H 08/11/18 05:00 Lymph # (Auto) 2.0 X10^3/uL (1.3-2.9) 08/11/18 05:00 [place] # (Auto) 0.9 x10^3/uL (0.3-0.8) H 08/11/18 05:00 Eos # (Auto) 0.6 x10^3/uL (0.0-0.2) H 08/11/18 05:00 Baso # (Auto) 0.1 X10^3/uL (0.0-0.1) 08/11/18 05:00 Absolute Nucleated RBC 0.0 /100WBC 08/11/18 05:00 Plt Morphology Comment Normal (NORMAL) 08/11/18 05:00 RBC Morphology Normal (NORMAL) 08/11/18 05:00 INR Target Range - 08/09/18 10:30 INR 0.99 (0.8-1.3) 08/09/18 10:30 APTT 28.7 SECONDS (22.9-36.5) 08/09/18 10:30 PTT Comment - 08/09/18 10:30 Sodium 137 mmol/L (136-145) 08/11/18 05:00 Corrected Sodium 141 mmol/L (136-145) 08/11/18 05:00 Potassium 4.1 mmol/L (3.5-5.1) 08/11/18 05:00 Chloride 104 mmol/L (98-107) 08/11/18 05:00 Carbon Dioxide 30.0 mmol/L (21-32) 08/11/18 05:00 BUN 24 mg/dL (7-18) H 08/11/18 05:00 Creatinine 1.38 mg/dL (0.55-1.02) H 08/11/18 05:00 Est GFR (MDRD) Af Amer 50 (>60) L 08/11/18 05:00 Est GFR (MDRD) Non-Af 41 (>60) L 08/11/18 05:00 Glucose 278 mg/dL (65-99) H 08/11/18 05:00 POC Glucose (mg/dL) 213 mg/dL (65-99) H 08/11/18 10:36 Lactic Acid 1.5 mmol/L (0.4-2.0) 08/09/18 10:30 Calcium 8.2 mg/dL (8.5-10.1) L 08/11/18 05:00 Corrected Calcium 9.6 mg/dL (8.5-10.1) 08/11/18 05:00 Magnesium 2.1 mg/dL (1.7-2.9) 08/11/18 05:00 Total Bilirubin 0.20 mg/dL (0.2-1.0) 08/11/18 05:00 AST 18 Units/L (15-37) 08/11/18 05:00 ALT 9 Units/L (12-78) L 08/11/18 05:00 Alkaline Phosphatase 48 Units/L (46-116) 08/11/18 05:00 Creatine Kinase 661 Units/L (26-192) H 08/09/18 23:25 CK-MB (CK-2) 5.0 ng/mL (0-4.0) H* 08/09/18 23:25 CK/CKMB % Calc 0.8 % (<4) 08/09/18 23:25 Troponin I < 0.02 ng/mL (0-1.5) 08/09/18 23:25 C-Reactive Protein 102.40 mg/L (0-3.0) H 08/09/18 10:30 B-Natriuretic Peptide 15.5 pg/mL (0-79) 08/09/18 10:30 Total Protein 5.6 g/dL (6.4-8.2) L 08/11/18 05:00 Albumin 2.2 g/dL (3.4-5.0) L 08/11/18 05:00 Globulin 3.4 g/dL (2.5-4.5) 08/11/18 05:00 Albumin/Globulin Ratio 0.6 Ratio (1.1-2.1) L 08/11/18 05:00 Triglycerides 146 mg/dL (0-150) 08/10/18 05:27 Cholesterol 107 mg/dL (0-200) 08/10/18 05:27 LDL Cholesterol, Calc 41 mg/dL (0-100) 08/10/18 05:27 HDL Cholesterol 37 mg/dL (40-60) L 08/10/18 05:27 Cholesterol/HDL Ratio 2.9 (0.0-5.0) 08/10/18 05:27 Amylase 8 Units/L (25-115) L 08/09/18 10:30 Lipase 140 Units/L (73-393) 08/09/18 10:30 Specimen Type Catherized urine 08/09/18 10:56 Urine Color Straw (YELLOW) 08/09/18 10:56 Urine Appearance Slightly hazy (CLEAR) 08/09/18 10:56 Urine pH 5.0 (5.0 - 8.0) 08/09/18 10:56 Ur Specific [place] 1.010 (1.000-1.030) 08/09/18 10:56 Urine Protein Negative (NEGATIVE) 08/09/18 10:56 Urine Glucose (UA) 4+ (NEGATIVE) 08/09/18 10:56 Urine Ketones Negative (NEGATIVE) 08/09/18 10:56 Urine Occult Blood 2+ (NEGATIVE) 08/09/18 10:56 Urine Nitrite Negative (NEGATIVE) 08/09/18 10:56 Urine Bilirubin Negative (NEGATIVE) 08/09/18 10:56 Urine Urobilinogen Normal (NORMAL) 08/09/18 10:56 Ur Leukocyte Esterase 2+ (NEGATIVE) 08/09/18 10:56 Urine RBC 3-5 /HPF (NONE SEEN) 08/09/18 10:56 Urine WBC 10-20 /HPF (NONE SEEN) 08/09/18 10:56 Ur Squamous Epith Cells Few /HPF (NEGATIVE) 08/09/18 10:56 Urine Bacteria Trace /HPF (NEGATIVE) 08/09/18 10:56 Ur Culture Indicated? Yes/culture set up 08/09/18 10:56 Acetone, Semi-Quant Negative (NEGATIVE) 08/09/18 10:30 - Plan (1) COPD exacerbation Status: Acute Plan: CONTINUE RESP CONSULT, SUPPLEMENTAL O2. BC AND SPUTUM CULTURE COLLECTED ON ADMISSION. AM LABS AND CXR. VERIFY HOME MEDICATION, URINE CULTURE, IV ATBX. PHYSICAL THERAPY CONSULT, BLOOD SUGAR CONTROL (2) Cellulitis, leg Status: Acute (3) Anxiety Status: Chronic (4) Arthritis Status: Chronic (5) Chronic obstructive lung disease Status: Chronic (6) Depression Status: Chronic (7) Diabetes mellitus type 2 Status: Chronic (8) Gastroesophageal reflux disease Status: Chronic (9) Hyperglycemia Status: Acute (10) UTI (urinary tract infection) Status: Acute Plan: IV ROCEPHIN
[2018-08-11] MEDS: NORCO 10/325 TAB PO PRN ×3 (13:34→21:20)
[2018-08-11] MEDS ORDERED: BUTT CREAM (COMPOUND) TOP PRN (14:51)
--- NOTE | 2018-08-11 16:27 | RAD ---
HISTORY: Fall with edema and pain Study: 3 views of the left knee Comparison: None Findings: Question of cortical step-off of the medial tibial plateau. Joint space loss and osteophytosis. No definite joint effusion however findings are limited by body habitus. Soft tissues are unremarkable. IMPRESSION: 1. Questionable small medial tibial plateau fracture. If this correlates with patient's pain, a CT may be indicated. Reported By:
[2018-08-11] MEDS: SNACK - Diabetic Appropriate PO SCH (20:45)
[2018-08-11] MEDS: ZOCOR TAB 40 MG PO SCH (21:05)
[2018-08-11] MEDS: CYMBALTA PO SCH (21:05)
[2018-08-11] MEDS: XANAX PO PRN (21:05)
[2018-08-11] MEDS: TRICOR TAB 160 MG PO SCH (21:06)
[2018-08-12 05:34] LABS: ALBUMIN 2.3 g/dL (3.4-5.0); CARBON DIOXIDE 31.8 mmol/L (21-32); CREATININE 1.3 mg/dL (0.55-1.02); TOTAL PROTEIN 5.9 g/dL (6.4-8.2)
[2018-08-12 05:38] LABS: CALCIUM 8.2 mg/dL (8.5-10.1); COR CA(FOR HYPOALB) 9.6 mg/dL (8.5-10.1)
[2018-08-12 05:39] LABS: BASOPHILS # (AUTO) 0.1 X10^3/uL (0.0-0.1); BASOPHILS % (AUTO) 0.6 % (0.2-1.0); EOSINOPHILS # (AUTO) 0.5 x10^3/uL (0.0-0.2); EOSINOPHILS % (AUTO) 6.5 % (0.9-2.9); HEMATOCRIT 30.5 % (36.0-47.0); HEMOGLOBIN 9.8 g/dL (12.0-16.0); LYMPHOCYTES # (AUTO) 1.8 X10^3/uL (1.3-2.9); LYMPHOCYTES % (AUTO) 21.3 % (21.0-51.0); MEAN CORPUSCULAR HEMOGLOBIN 28.6 pg (27.0-34.0); MEAN CORPUSCULAR HGB CONC 32.2 g/dL (33.0-35.0); MEAN CORPUSCULAR VOLUME 88.8 fL (80.0-100.0); MEAN PLATELET VOLUME 8.2 fL (7.4-11.0); MONOCYTES # (AUTO) 0.8 x10^3/uL (0.3-0.8); MONOCYTES % (AUTO) 9.5 % (0.0-13.0); NEUTROPHILS # (AUTO) 5.1 x10^3/uL (2.2-4.8); NEUTROPHILS % (AUTO) 62.1 % (42.0-75.0); PLATELET COUNT 320 X10^3/uL (150.0-450.0); RED BLOOD COUNT 3.43 X10^6/uL (3.5-5.4); RED CELL DISTRIBUTION WIDTH 15.1 % (11.6-16.5); WHITE BLOOD COUNT 8.2 X10^3/uL (3.6-10.0)
[2018-08-12] MEDS: NEURONTIN CAP 400 MG PO SCH ×3 (06:19→21:14)
[2018-08-12] MEDS: NS 1000 ML 1,000 ML IV SCH ×3 (06:20→21:09)
[2018-08-12] MEDS: LANTUS SC SCH ×2 (09:00→21:20)
[2018-08-12] MEDS: BENTYL CAP 10 MG PO SCH ×4 (10:09→21:12)
[2018-08-12] MEDS: LASIX PO SCH (10:09)
[2018-08-12] MEDS: ROCEPHIN VIAL 1 GRAM IVP SCH (10:09)
[2018-08-12] MEDS: PEPCID TAB 20 MG PO SCH ×2 (10:09→21:14)
[2018-08-12] MEDS: HEMOCYTE-PLUS PO SCH (10:09)
[2018-08-12] MEDS: MICRO K EXTEN CAP 10 MEQ PO SCH ×2 (10:09→21:12)
[2018-08-12] MEDS: GLUCOTROL PO SCH ×2 (10:09→21:14)
[2018-08-12] MEDS: COREG TAB 3.125 MG PO SCH ×2 (10:10→21:13)
[2018-08-12] MEDS: SYNTHROID 100 mcg TAB PO SCH (10:10)
[2018-08-12] MEDS: LOVENOX INJ 30 MG SYR SC SCH (10:10)
[2018-08-12] MEDS: SINEMET (PLAIN) 10/100 MG PO SCH ×2 (10:10→21:13)
[2018-08-12] MEDS: NYSTATIN POWDER TOP SCH ×2 (10:11→21:18)
[2018-08-12] MEDS: ABILIFY PO SCH (10:13)
--- NOTE | 2018-08-12 10:41 | CT ---
HISTORY: Injury, pain, left knee, follow-up plain film abnormality Study: CT left knee without contrast Comparison: Plain films 08/11/2018 Technique: Axial noncontrast images with coronal and sagittal reformats. Dose reduction procedures were used with mA/kv adjusted for body size. Findings: No periarticular soft tissue abnormality is identified. A very minimal joint effusion is present. The distal femur, proximal tibia, and proximal fibula are intact. There is moderately severe tricompartmental degenerative joint disease with medial, lateral, and patellofemoral compartment narrowing. There is medial femoral and medial tibial osteophyte formation present. No joint erosion or joint effusion is identified. IMPRESSION: Fracture not confirmed Moderately severe tricompartmental degenerative joint disease Minimal joint effusion Reported By:
[2018-08-12] MEDS: NORCO 10/325 TAB PO PRN ×2 (13:26→21:13)
[2018-08-12] MEDS: XANAX PO PRN ×2 (13:30→21:13)
[2018-08-12] MEDS: HumuLIN R SC PRN ×2 (17:49→21:10)
[2018-08-12] MEDS: SNACK - Diabetic Appropriate PO SCH (20:30)
[2018-08-12] MEDS: CYMBALTA PO SCH (21:14)
[2018-08-12] MEDS: ZOCOR TAB 40 MG PO SCH (21:14)
[2018-08-12] MEDS: TRICOR TAB 160 MG PO SCH (21:18)
[2018-08-13] MEDS: NEURONTIN CAP 400 MG PO SCH ×3 (05:44→21:27)
[2018-08-13] MEDS: HumuLIN R SC PRN ×4 (05:45→20:41)
[2018-08-13] MEDS: XANAX PO PRN ×2 (05:46→20:34)
[2018-08-13 05:47] LABS: BASOPHILS # (AUTO) 0.1 X10^3/uL (0.0-0.1); BASOPHILS % (AUTO) 0.8 % (0.2-1.0); EOSINOPHILS # (AUTO) 0.5 x10^3/uL (0.0-0.2); EOSINOPHILS % (AUTO) 5.9 % (0.9-2.9); HEMATOCRIT 31.4 % (36.0-47.0); HEMOGLOBIN 10.3 g/dL (12.0-16.0); LYMPHOCYTES # (AUTO) 1.8 X10^3/uL (1.3-2.9); LYMPHOCYTES % (AUTO) 22.3 % (21.0-51.0); MEAN CORPUSCULAR HEMOGLOBIN 29.1 pg (27.0-34.0); MEAN CORPUSCULAR HGB CONC 32.8 g/dL (33.0-35.0); MEAN CORPUSCULAR VOLUME 88.7 fL (80.0-100.0); MEAN PLATELET VOLUME 8.3 fL (7.4-11.0); MONOCYTES # (AUTO) 0.7 x10^3/uL (0.3-0.8); MONOCYTES % (AUTO) 8.5 % (0.0-13.0); NEUTROPHILS # (AUTO) 5.2 x10^3/uL (2.2-4.8); NEUTROPHILS % (AUTO) 62.5 % (42.0-75.0); PLATELET COUNT 335 X10^3/uL (150.0-450.0); RED BLOOD COUNT 3.54 X10^6/uL (3.5-5.4); RED CELL DISTRIBUTION WIDTH 15.2 % (11.6-16.5); WHITE BLOOD COUNT 8.3 X10^3/uL (3.6-10.0)
[2018-08-13 05:55] LABS: CARBON DIOXIDE 32.1 mmol/L (21-32)
[2018-08-13 06:15] LABS: BAND NEUTROPHILS % 1 % (0-10)
[2018-08-13 06:16] LABS: PLATELET MORPHOLOGY COMMENT NORMAL (NORMAL)
[2018-08-13 06:24] LABS: ALBUMIN 2.4 g/dL (3.4-5.0); CALCIUM 8.6 mg/dL (8.5-10.1); COR CA(FOR HYPOALB) 9.9 mg/dL (8.5-10.1); CREATININE 1.38 mg/dL (0.55-1.02); TOTAL PROTEIN 5.9 g/dL (6.4-8.2)
[2018-08-13] MEDS: LASIX PO SCH (08:30)
[2018-08-13] MEDS: PEPCID TAB 20 MG PO SCH ×2 (08:30→20:36)
[2018-08-13] MEDS: SINEMET (PLAIN) 10/100 MG PO SCH ×2 (08:30→20:35)
[2018-08-13] MEDS: BENTYL CAP 10 MG PO SCH ×4 (08:30→20:31)
[2018-08-13] MEDS: GLUCOTROL PO SCH ×2 (08:30→20:33)
[2018-08-13] MEDS: HEMOCYTE-PLUS PO SCH (08:31)
[2018-08-13] MEDS: COREG TAB 3.125 MG PO SCH ×2 (08:31→20:32)
[2018-08-13] MEDS: SYNTHROID 100 mcg TAB PO SCH (08:31)
[2018-08-13] MEDS: MICRO K EXTEN CAP 10 MEQ PO SCH ×2 (08:31→20:33)
[2018-08-13] MEDS: ROCEPHIN VIAL 1 GRAM IVP SCH (08:32)
[2018-08-13] MEDS: LOVENOX INJ 30 MG SYR SC SCH (08:32)
[2018-08-13] MEDS: LANTUS SC SCH ×2 (09:31→20:37)
[2018-08-13] MEDS: ABILIFY PO SCH (09:31)
[2018-08-13] MEDS: NS 1000 ML 1,000 ML IV SCH ×2 (09:32→19:50)
[2018-08-13] MEDS: NYSTATIN POWDER TOP SCH ×2 (09:32→21:29)
[2018-08-13] MEDS: NORCO 10/325 TAB PO PRN ×3 (09:43→20:35)
[2018-08-13] MEDS: SNACK - Diabetic Appropriate PO SCH (20:00)
[2018-08-13] MEDS: ZOCOR TAB 40 MG PO SCH (20:34)
[2018-08-13] MEDS: TRICOR TAB 160 MG PO SCH (20:36)
[2018-08-13] MEDS: CYMBALTA PO SCH (21:27)
[2018-08-14] MEDS: NS 1000 ML 1,000 ML IV SCH ×2 (00:21→06:33)
[2018-08-14] MEDS: NORCO 10/325 TAB PO PRN ×3 (01:52→14:17)
[2018-08-14 05:16] LABS: BASOPHILS # (AUTO) 0.1 X10^3/uL (0.0-0.1); BASOPHILS % (AUTO) 0.7 % (0.2-1.0); EOSINOPHILS # (AUTO) 0.5 x10^3/uL (0.0-0.2); EOSINOPHILS % (AUTO) 6.1 % (0.9-2.9); HEMATOCRIT 32.5 % (36.0-47.0); HEMOGLOBIN 10.5 g/dL (12.0-16.0); LYMPHOCYTES # (AUTO) 1.7 X10^3/uL (1.3-2.9); LYMPHOCYTES % (AUTO) 19.6 % (21.0-51.0); MEAN CORPUSCULAR HGB CONC 32.2 g/dL (33.0-35.0); MEAN CORPUSCULAR VOLUME 89.9 fL (80.0-100.0); MEAN PLATELET VOLUME 8.1 fL (7.4-11.0); MONOCYTES # (AUTO) 0.8 x10^3/uL (0.3-0.8); MONOCYTES % (AUTO) 8.8 % (0.0-13.0); NEUTROPHILS # (AUTO) 5.6 x10^3/uL (2.2-4.8); NEUTROPHILS % (AUTO) 64.8 % (42.0-75.0); PLATELET COUNT 350 X10^3/uL (150.0-450.0); RED BLOOD COUNT 3.62 X10^6/uL (3.5-5.4); RED CELL DISTRIBUTION WIDTH 14.9 % (11.6-16.5); WHITE BLOOD COUNT 8.7 X10^3/uL (3.6-10.0)
[2018-08-14 05:24] LABS: ALBUMIN 2.4 g/dL (3.4-5.0); CALCIUM 8.6 mg/dL (8.5-10.1); CARBON DIOXIDE 30.7 mmol/L (21-32); COR CA(FOR HYPOALB) 9.9 mg/dL (8.5-10.1); CREATININE 1.37 mg/dL (0.55-1.02); TOTAL PROTEIN 6.1 g/dL (6.4-8.2)
[2018-08-14] MEDS: NEURONTIN CAP 400 MG PO SCH ×2 (05:38→14:17)
[2018-08-14] MEDS: HumuLIN R SC PRN (05:43)
[2018-08-14 05:50] LABS: BAND NEUTROPHILS % 2 % (0-10); PLATELET MORPHOLOGY COMMENT NORMAL (NORMAL)
[2018-08-14] MEDS: SYNTHROID 100 mcg TAB PO SCH (09:31)
[2018-08-14] MEDS: ABILIFY PO SCH (09:31)
[2018-08-14] MEDS: BENTYL CAP 10 MG PO SCH ×2 (09:31→14:17)
[2018-08-14] MEDS: SINEMET (PLAIN) 10/100 MG PO SCH (09:32)
[2018-08-14] MEDS: PEPCID TAB 20 MG PO SCH (09:32)
[2018-08-14] MEDS: ROCEPHIN VIAL 1 GRAM IVP SCH (09:32)
[2018-08-14] MEDS: NYSTATIN POWDER TOP SCH (09:32)
[2018-08-14] MEDS: LANTUS SC SCH (09:33)
[2018-08-14] MEDS: LASIX PO SCH (09:33)
[2018-08-14] MEDS: MICRO K EXTEN CAP 10 MEQ PO SCH (09:33)
[2018-08-14] MEDS: HEMOCYTE-PLUS PO SCH (09:33)
[2018-08-14] MEDS: GLUCOTROL PO SCH (09:34)
[2018-08-14] MEDS: LOVENOX INJ 30 MG SYR SC SCH (09:34)
[2018-08-14] MEDS: COREG TAB 3.125 MG PO SCH (09:34)
[2018-08-14] MEDS: XANAX PO PRN (09:35)
[2018-08-14 12:31] VITALS: BP 129/73
== END 2018-08-14 15:20 | DRG 191 ==
LOC: ER 09:58 → MED/SURG 09:58 → OBSVTOIN 13:48 → MED/SURG 14:27
PROVIDERS: ADMIT Internal Medicine; ATTEND Internal Medicine
DX: F41.8 Other specified anxiety disorders; R53.1 Weakness; K21.9 Gastro-esophageal reflux disease without esophagitis; R60.0 Localized edema; R29.6 Repeated falls; Z79.4 Long term (current) use of insulin; R26.89 Other abnormalities of gait and mobility; B96.4 Proteus (mirabilis) (morganii) as the cause of diseases classified elsewhere; F32.89 Other specified depressive episodes; J44.1 Chronic obstructive pulmonary disease with (acute) exacerbation; L03.119 Cellulitis of unspecified part of limb; N39.0 Urinary tract infection, site not specified; Z23 Encounter for immunization; E11.65 Type 2 diabetes mellitus with hyperglycemia; M13.89 Other specified arthritis, multiple sites; E78.2 Mixed hyperlipidemia; E03.8 Other specified hypothyroidism
CPT/HCPCS: 36415; 36591; 51702; 71010; 71045; 73564; 73700; 80053; 80061; 81001; 82009; 82150; 82550; 82553; 83605; 83690; 83735; 83880; 84484; 85025; 85610; 85730; 86140; 87040; 87070; 87077; 87086; 87088; 87186; 87205; 90674; 90686; 93005; 94640; 94760; 96365; 96372; 96374; 96375; 97110; 97163; 97166; 97530; 97535; 99282; 99284; A4216; A4222; J0400; J0696; J1642; J1650; J1815; J2405; J3475; J7030

== ENCOUNTER 2019-03-23 15:44 | Observation (INO) ==
[2019-03-23 15:59] VITALS: BMI 54.1
[2019-03-23] MEDS ORDERED: LASIX IVP ONE ×2 (16:20→18:02)
--- NOTE | 2019-03-23 16:38 | RAD ---
HISTORY: Patient has experienced swelling and weight gain this past week. Primary care physician increased her Lasix, but patient is still swelling. Study: Single-view chest Comparison: 08/11/2018. Findings: A Port-A-Cath is seen on the left side inserted via subclavian approach. The catheter tip is in the right atrium. Trachea is midline. There is cardiomegaly with pulmonary vascular congestion. Increased interstitial markings are present bilaterally which likely represent mild CHF. No consolidation, pleural fluid or pneumothorax is seen. There is chronic elevation of the right hemidiaphragm. Osseous structures are intact. IMPRESSION: Cardiomegaly with increased interstitial markings bilaterally. Findings likely represent very mild CHF. No consolidation or fluid is seen. Reported By:
[2019-03-23 16:47] LABS: BASOPHILS # (AUTO) 0.1 X10^3/uL (0.0-0.1); BASOPHILS % (AUTO) 0.6 % (0.2-1.0); EOSINOPHILS # (AUTO) 0.3 x10^3/uL (0.0-0.2); EOSINOPHILS % (AUTO) 3.2 % (0.9-2.9); HEMATOCRIT 31.2 % (36.0-47.0); HEMOGLOBIN 10.3 g/dL (12.0-16.0); LYMPHOCYTES # (AUTO) 1.6 X10^3/uL (1.3-2.9); LYMPHOCYTES % (AUTO) 16.6 % (21.0-51.0); MEAN CORPUSCULAR HEMOGLOBIN 27.6 pg (27.0-34.0); MEAN CORPUSCULAR HGB CONC 32.9 g/dL (33.0-35.0); MEAN CORPUSCULAR VOLUME 83.9 fL (80.0-100.0); MEAN PLATELET VOLUME 7.6 fL (7.4-11.0); MONOCYTES # (AUTO) 0.7 x10^3/uL (0.3-0.8); NEUTROPHILS # (AUTO) 6.9 x10^3/uL (2.2-4.8); NEUTROPHILS % (AUTO) 72.6 % (42.0-75.0); PLATELET COUNT 312 X10^3/uL (150.0-450.0); RED BLOOD COUNT 3.72 X10^6/uL (3.5-5.4); RED CELL DISTRIBUTION WIDTH 14.1 % (11.6-16.5); WHITE BLOOD COUNT 9.5 X10^3/uL (3.6-10.0)
[2019-03-23 17:07] LABS: BLOOD UREA NITROGEN 31 mg/dL (7-18); CALCIUM 8.6 mg/dL (8.5-10.1); CHLORIDE 100 mmol/L (98-107); COR NA(FOR HYPERGLY) 142 mmol/L (136-145); CREATININE 1.42 mg/dL (0.55-1.02); SODIUM 137 mmol/L (136-145); TROPONIN I < 0.02 ng/mL (0-1.5); eGFR NON BLACK RACES 39 (>60)
[2019-03-23 17:11] LABS: ALANINE AMINOTRANSFERASE 9 Units/L (12-78); ALBUMIN 3.1 g/dL (3.4-5.0); ALKALINE PHOSPHATASE 58 Units/L (46-116); ASPARTATE AMINO TRANSFERASE 12 Units/L (15-37); COR CA(FOR HYPOALB) 9.3 mg/dL (8.5-10.1); CREATINE KINASE 49 Units/L (26-192); CREATINE KINASE MB < 1.0 ng/mL (0-4.0); TOTAL PROTEIN 6.8 g/dL (6.4-8.2)
[2019-03-23 18:04] LABS: BILIRUBIN,URINE NEGATIVE (NEGATIVE); BLOOD/HEMOGLOBIN,URINE NEGATIVE (NEGATIVE); GLUCOSE, URINE 4+ (NEGATIVE); KETONES,URINE NEGATIVE (NEGATIVE); LEUKOCYTE ESTERASE ,URINE 1+ (NEGATIVE); NITRITES,URINE NEGATIVE (NEGATIVE); PROTEIN,URINE NEGATIVE (NEGATIVE); UROBILINOGEN,URINE NORMAL (NORMAL)
[2019-03-23 18:12] LABS: APPEARANCE,URINE CLEAR (CLEAR); BACTERIA,URINE NEGATIVE /HPF (NEGATIVE); COLOR,URINE PALE YELLOW (YELLOW); RBC,URINE NONE SEEN /HPF (0-3); SQUAMOUS EPITHELIAL CELL,UR RARE /HPF (NEGATIVE)
--- NOTE | 2019-03-23 18:45 | DR.GENAD ---
HPI Time Seen Time Seen by Provider: 03/23/19 16:01 PCP Primary Care Physician: ross perez Complaint/Symptoms Chief Complaint:: pt stated for the past week she has been swelling and gaining weight, she called her pcp and they increased her lasix but she stated she is still swelling. Source History Provided: Patient Mode of Arrival Mode of Arrival: EMS Timing Onset of Chief Complaint: 03/23/19 PMH PMH Past Medical History: Yes Past Medical History: Angina, Anxiety, Arthritis, Asthma, COPD, Depression, Diabetes, Dyslipidemia, GERD, Headaches, Hypothyroidism and Kidney Stones Past Surgical History: Yes Surgical History: Abdominal Surgery, Bowel Resection, Hysterectomy, Ortho Surgery, Tonsillectomy, Lithotripsy and Other Family History History of Family Medical Conditions: Yes Family Medical History: Diabetes Mellitus and [place] Social History Does patient currently use any type of tobacco product: No Have you used tobacco products in the last 12 months: No Type of Tobacco Use: None Does any household member use tobacco: No Alcohol Use: None Do you use any recreational Drugs:: No Lives With: Family Lives Where: Home infectious screening In the last 2 months have you had wt loss of >10#?: NO Have you had fever, night sweats or hemotysis?: No Have you traveled outside the country in the last 6 months?: No Isolation: Standard PE Vital Signs Vitals: Temperature 98.8 F Pulse Rate 84 Respiratory Rate 18 Blood Pressure [Right Arm] 129/60 Blood Pressure [Left Arm] 124/60 Blood Pressure 135/60 O2 Sat by Pulse Oximetry 99 ROR Labs Reviewed Result Diagrams: 03/23/19 16:37 03/23/19 16:37 Laboratory: WBC 9.5 X10^3/uL (3.6-10.0) 03/23/19 16:37 RBC 3.72 X10^6/uL (3.5-5.4) 03/23/19 16:37 Hgb 10.3 g/dL (12.0-16.0) L 03/23/19 16:37 Hct 31.2 % (36.0-47.0) L 03/23/19 16:37 MCV 83.9 fL (80.0-100.0) 03/23/19 16:37 MCH 27.6 pg (27.0-34.0) 03/23/19 16:37 MCHC 32.9 g/dL (33.0-35.0) L 03/23/19 16:37 RDW 14.1 % (11.6-16.5) 03/23/19 16:37 Plt Count 312 X10^3/uL (150.0-450.0) 03/23/19 16:37 MPV 7.6 fL (7.4-11.0) 03/23/19 16:37 Neut % (Auto) 72.6 % (42.0-75.0) 03/23/19 16:37 Lymph % (Auto) 16.6 % (21.0-51.0) L 03/23/19 16:37 [place] % (Auto) 7.0 % (0.0-13.0) 03/23/19 16:37 Eos % (Auto) 3.2 % (0.9-2.9) H 03/23/19 16:37 Baso % (Auto) 0.6 % (0.2-1.0) 03/23/19 16:37 Neut # (Auto) 6.9 x10^3/uL (2.2-4.8) H 03/23/19 16:37 Lymph # (Auto) 1.6 X10^3/uL (1.3-2.9) 03/23/19 16:37 [place] # (Auto) 0.7 x10^3/uL (0.3-0.8) 03/23/19 16:37 Eos # (Auto) 0.3 x10^3/uL (0.0-0.2) H 03/23/19 16:37 Baso # (Auto) 0.1 X10^3/uL (0.0-0.1) 03/23/19 16:37 Absolute Nucleated RBC 0.0 /100WBC 03/23/19 16:37 Sodium 137 mmol/L (136-145) 03/23/19 16:37 Corrected Sodium 142 mmol/L (136-145) 03/23/19 16:37 Potassium 4.0 mmol/L (3.5-5.1) 03/23/19 16:37 Chloride 100 mmol/L (98-107) 03/23/19 16:37 Carbon Dioxide 28.0 mmol/L (21-32) 03/23/19 16:37 BUN 31 mg/dL (7-18) H 03/23/19 16:37 Creatinine 1.42 mg/dL (0.55-1.02) H 03/23/19 16:37 Est GFR (MDRD) Af Amer 48 (>60) L 03/23/19 16:37 Est GFR (MDRD) Non-Af 39 (>60) L 03/23/19 16:37 Glucose 308 mg/dL (65-99) H 03/23/19 16:37 Calcium 8.6 mg/dL (8.5-10.1) 03/23/19 16:37 Corrected Calcium 9.3 mg/dL (8.5-10.1) 03/23/19 16:37 Total Bilirubin 0.20 mg/dL (0.2-1.0) 03/23/19 16:37 AST 12 Units/L (15-37) L 03/23/19 16:37 ALT 9 Units/L (12-78) L 03/23/19 16:37 Alkaline Phosphatase 58 Units/L (46-116) 03/23/19 16:37 Creatine Kinase 49 Units/L (26-192) 03/23/19 16:37 CK-MB (CK-2) < 1.0 ng/mL (0-4.0) 03/23/19 16:37 CK/CKMB % Calc 2.0 % (<4) 03/23/19 16:37 Troponin I < 0.02 ng/mL (0-1.5) 03/23/19 16:37 B-Natriuretic Peptide 82.1 pg/mL (0-79) H 03/23/19 16:37 Total Protein 6.8 g/dL (6.4-8.2) 03/23/19 16:37 Albumin 3.1 g/dL (3.4-5.0) L 03/23/19 16:37 Globulin 3.7 g/dL (2.5-4.5) 03/23/19 16:37 Albumin/Globulin Ratio 0.8 Ratio (1.1-2.1) L 03/23/19 16:37 Specimen Type Clean catch urine 03/23/19 17:55 Urine Color Pale yellow (YELLOW) 03/23/19 17:55 Urine Appearance Clear (CLEAR) 03/23/19 17:55 Urine pH 6.0 (5.0 - 8.0) 03/23/19 17:55 Ur Specific [place] 1.010 (1.000-1.030) 03/23/19 17:55 Urine Protein Negative (NEGATIVE) 03/23/19 17:55 Urine Glucose (UA) 4+ (NEGATIVE) 03/23/19 17:55 Urine Ketones Negative (NEGATIVE) 03/23/19 17:55 Urine Occult Blood Negative (NEGATIVE) 03/23/19 17:55 Urine Nitrite Negative (NEGATIVE) 03/23/19 17:55 Urine Bilirubin Negative (NEGATIVE) 03/23/19 17:55 Urine Urobilinogen Normal (NORMAL) 03/23/19 17:55 Ur Leukocyte Esterase 1+ (NEGATIVE) 03/23/19 17:55 Urine RBC None seen /HPF (0-3) 03/23/19 17:55 Urine WBC 0-2 /HPF (0-5) 03/23/19 17:55 Ur Squamous Epith Cells Rare /HPF (NEGATIVE) 03/23/19 17:55 Urine Bacteria Negative /HPF (NEGATIVE) 03/23/19 17:55 Ur Culture Indicated? No/not indicated 03/23/19 17:55 Opioid Opioid Risk Tool Total: 0 Total Score Risk Category: Low Risk Copyright: Tony QUINONES predicting aberrant behaviors Instructions Forms: Excuse From Work
[2019-03-23] MEDS ORDERED: KLOR-CON PO ONE (19:23)
[2019-03-23] MEDS: HumuLIN R SUBCUT PRN (21:27)
[2019-03-23 23:19] LABS: CKMB % 2.1 % (<4); CREATINE KINASE 48 Units/L (26-192); CREATINE KINASE MB < 1.0 ng/mL (0-4.0); TROPONIN I < 0.02 ng/mL (0-1.5)
[2019-03-24 05:17] LABS: BASOPHILS # (AUTO) 0.1 X10^3/uL (0.0-0.1); BASOPHILS % (AUTO) 0.6 % (0.2-1.0); EOSINOPHILS # (AUTO) 0.3 x10^3/uL (0.0-0.2); EOSINOPHILS % (AUTO) 2.6 % (0.9-2.9); HEMATOCRIT 32.2 % (36.0-47.0); HEMOGLOBIN 10.3 g/dL (12.0-16.0); LYMPHOCYTES # (AUTO) 1.7 X10^3/uL (1.3-2.9); LYMPHOCYTES % (AUTO) 14.5 % (21.0-51.0); MEAN CORPUSCULAR HEMOGLOBIN 27.2 pg (27.0-34.0); MEAN CORPUSCULAR HGB CONC 32.1 g/dL (33.0-35.0); MEAN CORPUSCULAR VOLUME 84.5 fL (80.0-100.0); MEAN PLATELET VOLUME 8.4 fL (7.4-11.0); MONOCYTES # (AUTO) 0.9 x10^3/uL (0.3-0.8); MONOCYTES % (AUTO) 7.6 % (0.0-13.0); NEUTROPHILS # (AUTO) 8.7 x10^3/uL (2.2-4.8); NEUTROPHILS % (AUTO) 74.7 % (42.0-75.0); PLATELET COUNT 318 X10^3/uL (150.0-450.0); RED BLOOD COUNT 3.81 X10^6/uL (3.5-5.4); WHITE BLOOD COUNT 11.6 X10^3/uL (3.6-10.0)
[2019-03-24 05:49] LABS: ALANINE AMINOTRANSFERASE 10 Units/L (12-78); ALKALINE PHOSPHATASE 56 Units/L (46-116); ASPARTATE AMINO TRANSFERASE 11 Units/L (15-37); BLOOD UREA NITROGEN 26 mg/dL (7-18); CALCIUM 8.7 mg/dL (8.5-10.1); CARBON DIOXIDE 29.8 mmol/L (21-32); CHLORIDE 100 mmol/L (98-107); CKMB % 2.2 % (<4); COR CA(FOR HYPOALB) 9.5 mg/dL (8.5-10.1); COR NA(FOR HYPERGLY) 142 mmol/L (136-145); CREATINE KINASE 45 Units/L (26-192); CREATINE KINASE MB < 1.0 ng/mL (0-4.0); CREATININE 1.29 mg/dL (0.55-1.02); SODIUM 138 mmol/L (136-145); TOTAL PROTEIN 6.8 g/dL (6.4-8.2); TROPONIN I < 0.02 ng/mL (0-1.5); eGFR NON BLACK RACES 44 (>60)
[2019-03-24] MEDS: HumuLIN R SUBCUT PRN ×3 (06:30→17:07)
[2019-03-24] MEDS: TYLENOL 325 MG TAB PO PRN ×2 (06:31→14:16)
[2019-03-24] MEDS ORDERED: AFLURIA II4 or FLUARIX II4 IM ONE (06:44)
[2019-03-24] MEDS ORDERED: KLOR-CON PO PRN (07:21)
[2019-03-24] MEDS ORDERED: POTASSIUM CHL 60 MEQ/NS 0.45% 500 ML IV PRN (07:21)
[2019-03-24] MEDS ORDERED: POTASSIUM CHL 40 MEQ/NS 0.45% 500 ML IV PRN (07:21)
[2019-03-24] MEDS ORDERED: K-DUR TAB 20 MEQ PO PRN (07:21)
[2019-03-24] MEDS ORDERED: K-RIDER 10 MEQ/NS 100 ML 10 MEQ/100 ML BAG IV PRN (07:21)
[2019-03-24] MEDS ORDERED: MICRO K EXTEN CAP 10 MEQ PO PRN (07:21)
[2019-03-24] MEDS ORDERED: POTASSIUM CHLORIDE LIQ 20 MEQ UDC PO PRN (07:21)
[2019-03-24] MEDS ORDERED: NS 250 ML IV 250 ML IV ONE (08:17)
[2019-03-24] MEDS: MAGNESIUM SULFATE 1 GRAM/100 mL PREMIX 1 GM/100 ML BAG IV PRN ×2 (08:36→10:20)
[2019-03-24] MEDS ORDERED: ZOFRAN INJ 4 MG VIAL ONE (09:04)
[2019-03-24] MEDS: ZOFRAN INJ 4 MG VIAL IVP PRN ×3 (09:05→20:39)
[2019-03-24] MEDS ORDERED: NORCO 10/325 TAB ONE (09:14)
[2019-03-24] MEDS ORDERED: DIFLUCAN PO ONE (10:22)
[2019-03-24] MEDS ORDERED: DIFLUCAN 200 MG IV PREMIX* 200 MG/100 ML BAG IV SCH (11:00)
[2019-03-24] MEDS ORDERED: NYSTATIN POWDER ONE (11:06)
[2019-03-24] MEDS: NYSTATIN POWDER TOP SCH ×2 (11:29→22:22)
--- NOTE | 2019-03-24 13:05 | DR.H&P ---
H&P History & Physical for Day of: H&P Date: 03/24/19 Chief Complaint Chief Complaint: Weight gain and bilateral lower extremity edema Allergies Allergies Allergy/AdvReac Type Severity Reaction Status Date / Time oxycodone Allergy Verified 08/10/18 16:18 History of Present Illness History of Present Illness: Pt presenting w/ swelling of her legs bilaterally and weight gain. She reports history of CHF and that she is on Lasix. When she noticed swelling, she notified her pcp and was told to take double her home Lasix dose for 3 days. Pt reports no improvement of symptoms. She also is c/o diarrhea from her colostomy bag. She denies any recent antibiotic. Denies nausea, vomiting, abdominal pain, fevers, chills. Pt reports an erythematous rash underneath both breasts and pannus. Past Medical History Past Medical History: Angina, Anxiety, Arthritis, Asthma, COPD, Depression, Diabetes, Dyslipidemia, GERD, Headaches, Hypothyroidism and Kidney Stones Additional Medical History: MORBID OBESITY; VITAMIN B12 DEFICIENCY; LUMBOSACAL RADICULOPATHY Past Surgical History Surgical History: Abdominal Surgery, Bowel Resection, Hysterectomy, Ortho Surgery, Tonsillectomy, Lithotripsy and Other Family History Family Medical History: Diabetes Mellitus and [place] Social History Does patient currently use any type of tobacco product: No Have you used tobacco products in the last 12 months: No Type of Tobacco Use: None Does any household member use tobacco: No Alcohol Use: None Drug Use: None Medications Home Medications: oxycodone Allergy (Verified 08/10/18 16:18) CONTINUE taking the following medications amoxicillin-pot clavulanate 1 tab PO BID 03/24/19 [History] doxycycline hyclate 100 mg PO BID 03/24/19 [History] glimepiride 4 mg PO BID 03/24/19 [History] insulin aspart U-100 [Novolog Flexpen U-100 Insulin] 1 unit SUBCUT PRN PRN 03/24/19 [History] insulin detemir U-100 [Levemir U-100 Insulin] 45 unit SUBCUT BID 03/24/19 [History] levothyroxine 125 mcg PO DAILY 03/24/19 [History] Labs Result Diagrams: 03/24/19 04:08 03/24/19 04:08 Labs: 03/24/19 10:15 Stool - Final Laboratory WBC 11.6 X10^3/uL (3.6-10.0) H 03/24/19 04:08 RBC 3.81 X10^6/uL (3.5-5.4) 03/24/19 04:08 Hgb 10.3 g/dL (12.0-16.0) L 03/24/19 04:08 Hct 32.2 % (36.0-47.0) L 03/24/19 04:08 MCV 84.5 fL (80.0-100.0) 03/24/19 04:08 MCH 27.2 pg (27.0-34.0) 03/24/19 04:08 MCHC 32.1 g/dL (33.0-35.0) L 03/24/19 04:08 RDW 14.0 % (11.6-16.5) 03/24/19 04:08 Plt Count 318 X10^3/uL (150.0-450.0) 03/24/19 04:08 MPV 8.4 fL (7.4-11.0) 03/24/19 04:08 Neut % (Auto) 74.7 % (42.0-75.0) 03/24/19 04:08 Lymph % (Auto) 14.5 % (21.0-51.0) L 03/24/19 04:08 [place] % (Auto) 7.6 % (0.0-13.0) 03/24/19 04:08 Eos % (Auto) 2.6 % (0.9-2.9) 03/24/19 04:08 Baso % (Auto) 0.6 % (0.2-1.0) 03/24/19 04:08 Neut # (Auto) 8.7 x10^3/uL (2.2-4.8) H 03/24/19 04:08 Lymph # (Auto) 1.7 X10^3/uL (1.3-2.9) 03/24/19 04:08 [place] # (Auto) 0.9 x10^3/uL (0.3-0.8) H 03/24/19 04:08 Eos # (Auto) 0.3 x10^3/uL (0.0-0.2) H 03/24/19 04:08 Baso # (Auto) 0.1 X10^3/uL (0.0-0.1) 03/24/19 04:08 Absolute Nucleated RBC 0.0 /100WBC 03/24/19 04:08 Sodium 138 mmol/L (136-145) 03/24/19 04:08 Corrected Sodium 142 mmol/L (136-145) 03/24/19 04:08 Potassium 3.6 mmol/L (3.5-5.1) 03/24/19 04:08 Chloride 100 mmol/L (98-107) 03/24/19 04:08 Carbon Dioxide 29.8 mmol/L (21-32) 03/24/19 04:08 BUN 26 mg/dL (7-18) H 03/24/19 04:08 Creatinine 1.29 mg/dL (0.55-1.02) H 03/24/19 04:08 Est GFR (MDRD) Af Amer 53 (>60) L 03/24/19 04:08 Est GFR (MDRD) Non-Af 44 (>60) L 03/24/19 04:08 Glucose 263 mg/dL (65-99) H 03/24/19 04:08 POC Glucose (mg/dL) 302 mg/dL (65-99) H 03/24/19 11:27 Calcium 8.7 mg/dL (8.5-10.1) 03/24/19 04:08 Corrected Calcium 9.5 mg/dL (8.5-10.1) 03/24/19 04:08 Magnesium 1.8 mg/dL (1.7-2.9) 03/24/19 04:08 Total Bilirubin 0.30 mg/dL (0.2-1.0) 03/24/19 04:08 AST 11 Units/L (15-37) L 03/24/19 04:08 ALT 10 Units/L (12-78) L 03/24/19 04:08 Alkaline Phosphatase 56 Units/L (46-116) 03/24/19 04:08 Creatine Kinase 45 Units/L (26-192) 03/24/19 04:08 CK-MB (CK-2) < 1.0 ng/mL (0-4.0) 03/24/19 04:08 CK/CKMB % Calc 2.2 % (<4) 03/24/19 04:08 Troponin I < 0.02 ng/mL (0-1.5) 03/24/19 04:08 B-Natriuretic Peptide 82.1 pg/mL (0-79) H 03/23/19 16:37 Total Protein 6.8 g/dL (6.4-8.2) 03/24/19 04:08 Albumin 3.0 g/dL (3.4-5.0) L 03/24/19 04:08 Globulin 3.8 g/dL (2.5-4.5) 03/24/19 04:08 Albumin/Globulin Ratio 0.8 Ratio (1.1-2.1) L 03/24/19 04:08 Specimen Type Clean catch urine 03/23/19 17:55 Urine Color Pale yellow (YELLOW) 03/23/19 17:55 Urine Appearance Clear (CLEAR) 03/23/19 17:55 Urine pH 6.0 (5.0 - 8.0) 03/23/19 17:55 Ur Specific [place] 1.010 (1.000-1.030) 03/23/19 17:55 Urine Protein Negative (NEGATIVE) 03/23/19 17:55 Urine Glucose (UA) 4+ (NEGATIVE) 03/23/19 17:55 Urine Ketones Negative (NEGATIVE) 03/23/19 17:55 Urine Occult Blood Negative (NEGATIVE) 03/23/19 17:55 Urine Nitrite Negative (NEGATIVE) 03/23/19 17:55 Urine Bilirubin Negative (NEGATIVE) 03/23/19 17:55 Urine Urobilinogen Normal (NORMAL) 03/23/19 17:55 Ur Leukocyte Esterase 1+ (NEGATIVE) 03/23/19 17:55 Urine RBC None seen /HPF (0-3) 03/23/19 17:55 Urine WBC 0-2 /HPF (0-5) 03/23/19 17:55 Ur Squamous Epith Cells Rare /HPF (NEGATIVE) 03/23/19 17:55 Urine Bacteria Negative /HPF (NEGATIVE) 03/23/19 17:55 Ur Culture Indicated? No/not indicated 03/23/19 17:55 Stool Description 200g,brown,liquid 03/24/19 10:15 Stl Occult Blood (IFOB) Positive (NEGATIVE) A 03/24/19 10:15 Stool for White Cells Positive (NEGATIVE) A 03/24/19 10:15 Stl C. diff Tox B Gene Negative (NEGATIVE) 03/24/19 10:15 Stl C. diff [id number] Negative (NEGATIVE) 03/24/19 10:15 Review of Systems Constitutional: See HPI Eyes: denies No Symptoms Reported, See HPI, Pain, Vision Change, Conjunctivae Inflammation, Eyelid Inflammation, Redness and Other ENT: denies No Symptoms Reported, See HPI, Ear Pain, Ear Discharge, Nose Pain, Nose Discharge, Nose Congestion, Mouth Pain, Mouth Swelling, Throat Pain, Throat Swelling and Other Respiratory: Cough and Shortness of Breath Cardiovascular: Edema Gastrointestinal: Diarrhea Genitourinary: denies Dysuria Skin: Rash (erythematous, malodorous underneath breast and pannus ) Physical Exam Vital Signs: Temperature 98.8 F Pulse Rate [Brachial] 98 Pulse Rate 84 Respiratory Rate 18 Blood Pressure [Right Arm] 130/60 Blood Pressure [Left Arm] 107/57 Blood Pressure 135/60 O2 Sat by Pulse Oximetry 97 Oriented: Normal Eyes: Normal Ear: Normal Nose: Normal Throat: Normal Respiratory: Rales Throughout (minimal bibasilar ) Cardiovascular: Normal and Edema (+1 pitting edema b/l) : negative Dysuria Auscultation: Bowel Sounds: Normal Tenderness: Normal Skin: Rash (erythematous, malodorous underneath breast and pannus ) Psychiatric: Normal Mood Description: Calm Assessment/Plan (1) Acute exacerbation of CHF (congestive heart failure): Status: Acute Plan: Pt received IV Lasix. CXR suggestive of CHF. Weights reviewed, not much difference compared to prior hospitalization. No echo on file. Will order TTE, resume home medications. Daily weights. Pt currently on room air. Strict I/Os. (2) Lower extremity edema: Status: Acute (3) Intertrigo: Status: Acute Plan: Nystatin, hygiene, wound care as per nursing. (4) Skin disease, fungal: Status: Acute (5) Generalized weakness: Status: Acute (6) Gastroesophageal reflux disease: Status: Chronic (7) Hypothyroidism: Status: Chronic (8) Dyslipidemia: Status: Chronic (9) Diabetes mellitus type 2: Status: Chronic (10) Depression: Status: Chronic (11) Diarrhea: Status: Acute (12) Chronic obstructive lung disease: Status: Chronic (13) Arthritis: Status: Chronic (14) Anxiety: Status: Chronic (15) Sacral decubitus ulcer: Status: Acute Plan: Chronic, area clean and dry, iodoform packing noted. Followed by Wound Care in [place]. [place]
[2019-03-24] MEDS ORDERED: XANAX PO PRN (13:08)
[2019-03-24] MEDS ORDERED: NORCO 10/325 TAB PO PRN (13:08)
[2019-03-24] MEDS ORDERED: PHENERGAN INJ 25 MG IM ONE (15:01)
[2019-03-24] MEDS: NEURONTIN CAP 400 MG PO SCH ×2 (15:07→22:24)
[2019-03-24] MEDS ORDERED: PEPCID TAB 20 MG ONE (18:01)
[2019-03-24] MEDS: PEPCID TAB 20 MG PO SCH ×2 (18:06→21:08)
[2019-03-24] MEDS ORDERED: SNACK - Diabetic Appropriate PO SCH (20:00)
[2019-03-24] MEDS: SNACK - Diabetic Appropriate PO SCH (22:20)
[2019-03-24] MEDS: COREG TAB 3.125 MG PO SCH (22:21)
[2019-03-24] MEDS: CYMBALTA PO SCH (22:21)
[2019-03-24] MEDS: LEVEMIR SC SCH (22:21)
[2019-03-24] MEDS: SINEMET (PLAIN) 10/100 MG PO SCH (22:22)
[2019-03-24] MEDS: ZOCOR TAB 40 MG PO SCH (22:23)
[2019-03-24] MEDS: TRICOR TAB 160 MG PO SCH (22:23)
[2019-03-24] MEDS: PHENERGAN INJ 25 MG IM PRN (22:25)
[2019-03-25] MEDS ORDERED: MORPHINE SULFATE INJ 2 MG INJ IVP PRN (00:20)
[2019-03-25 00:25] LABS: CKMB % 2.3 % (<4); CREATINE KINASE 43 Units/L (26-192); CREATINE KINASE MB < 1.0 ng/mL (0-4.0); TROPONIN I < 0.02 ng/mL (0-1.5)
[2019-03-25] MEDS ORDERED: MORPHINE SULFATE INJ 2 MG INJ ONE (00:29)
[2019-03-25] MEDS: ZOFRAN INJ 4 MG VIAL IVP PRN (03:44)
[2019-03-25] MEDS: NEURONTIN CAP 400 MG PO SCH ×3 (06:19→21:21)
[2019-03-25] MEDS: HumuLIN R SUBCUT PRN ×3 (06:29→17:34)
[2019-03-25] MEDS: PHENERGAN INJ 25 MG IM PRN (07:19)
[2019-03-25] MEDS: LEVEMIR SC SCH ×2 (08:24→21:22)
[2019-03-25 08:41] LABS: BASOPHILS # (AUTO) 0.1 X10^3/uL (0.0-0.1); BASOPHILS % (AUTO) 0.5 % (0.2-1.0); EOSINOPHILS # (AUTO) 0.1 x10^3/uL (0.0-0.2); EOSINOPHILS % (AUTO) 0.6 % (0.9-2.9); HEMATOCRIT 34.3 % (36.0-47.0); HEMOGLOBIN 11.2 g/dL (12.0-16.0); LYMPHOCYTES % (AUTO) 6.2 % (21.0-51.0); MEAN CORPUSCULAR HEMOGLOBIN 27.4 pg (27.0-34.0); MEAN CORPUSCULAR HGB CONC 32.6 g/dL (33.0-35.0); MEAN CORPUSCULAR VOLUME 84.1 fL (80.0-100.0); MEAN PLATELET VOLUME 8.2 fL (7.4-11.0); MONOCYTES % (AUTO) 5.9 % (0.0-13.0); NEUTROPHILS # (AUTO) 14.2 x10^3/uL (2.2-4.8); NEUTROPHILS % (AUTO) 86.8 % (42.0-75.0); PLATELET COUNT 364 X10^3/uL (150.0-450.0); RED BLOOD COUNT 4.07 X10^6/uL (3.5-5.4); RED CELL DISTRIBUTION WIDTH 14.3 % (11.6-16.5); WHITE BLOOD COUNT 16.4 X10^3/uL (3.6-10.0)
[2019-03-25 08:47] LABS: CARBON DIOXIDE 26.7 mmol/L (21-32); CREATININE 1.25 mg/dL (0.55-1.02)
[2019-03-25] MEDS: ABILIFY PO SCH (09:13)
[2019-03-25] MEDS: LASIX PO SCH (09:13)
[2019-03-25] MEDS: SINEMET (PLAIN) 10/100 MG PO SCH ×2 (09:14→21:21)
[2019-03-25] MEDS: AMARYL TAB 4 MG PO SCH ×2 (09:14→21:21)
[2019-03-25] MEDS: PEPCID TAB 20 MG PO SCH ×2 (09:14→21:21)
[2019-03-25] MEDS: SYNTHROID 125 mcg TAB PO SCH (09:14)
[2019-03-25] MEDS: NYSTATIN POWDER TOP SCH ×2 (09:14→21:03)
[2019-03-25] MEDS: COREG TAB 3.125 MG PO SCH ×2 (09:14→21:21)
[2019-03-25] MEDS: NORCO 10/325 TAB PO PRN ×2 (12:38→21:23)
--- NOTE | 2019-03-25 12:51 | PCM.PROG ---
Progress Note Progress Note for Day of Date of Exam: 03/25/19 Subjective Subjective: Patient had episodes of N/V overnight. She received Zofran and Phenergan. She feels better this AM, currently NPO. She reports improvement in rash. She continues to have diarrhea. Denies fever or chills. Past Medical Family Social History Past Med/Fam/Surg Hx: No changes since H&P Allergies: Allergies oxycodone Allergy (Verified 08/10/18 16:18) Review of Systems ROS: No change since H&P Vital Signs and I&O's Vital Signs: Temperature 98.8 F Pulse Rate [Brachial] 106 Pulse Rate 84 Respiratory Rate 18 Blood Pressure [Right Arm] 127/64 Blood Pressure [Left Arm] 122/56 Blood Pressure 135/60 O2 Sat by Pulse Oximetry 94 Intake and Output: Intake & Output 03/22/19 03/23/19 03/24/19 03/25/19 23:59 23:59 23:59 23:59 Intake Total 320 / 320 1440 / 1440 0 / 0 Output Total 1974 350 / 350 Balance 320 / 320 -535 / -535 -350 / -350 Physical Exam Oriented: Normal Eyes: Normal Ear: Normal Nose: Normal Throat: Normal Cardiovascular: Normal and Edema (+1 pitting edema b/l) Auscultation: Bowel Sounds: Normal Tenderness: Normal Skin: Rash (erythematous, malodorous underneath breast and pannus ) Psychiatric: Normal Mood Description: Calm Speech Pattern: Clear and Appropriate Laboratory and Diagnostics Result Diagrams: 03/25/19 04:08 03/25/19 04:08 Labs: 03/24/19 10:15 Stool Stool Culture - Preliminary 03/24/19 10:15 Stool - Final Laboratory WBC 16.4 X10^3/uL (3.6-10.0) H 03/25/19 04:08 RBC 4.07 X10^6/uL (3.5-5.4) 03/25/19 04:08 Hgb 11.2 g/dL (12.0-16.0) L 03/25/19 04:08 Hct 34.3 % (36.0-47.0) L 03/25/19 04:08 MCV 84.1 fL (80.0-100.0) 03/25/19 04:08 MCH 27.4 pg (27.0-34.0) 03/25/19 04:08 MCHC 32.6 g/dL (33.0-35.0) L 03/25/19 04:08 RDW 14.3 % (11.6-16.5) 03/25/19 04:08 Plt Count 364 X10^3/uL (150.0-450.0) 03/25/19 04:08 MPV 8.2 fL (7.4-11.0) 03/25/19 04:08 Neut % (Auto) 86.8 % (42.0-75.0) H 03/25/19 04:08 Lymph % (Auto) 6.2 % (21.0-51.0) L 03/25/19 04:08 [place] % (Auto) 5.9 % (0.0-13.0) 03/25/19 04:08 Eos % (Auto) 0.6 % (0.9-2.9) L 03/25/19 04:08 Baso % (Auto) 0.5 % (0.2-1.0) 03/25/19 04:08 Neut # (Auto) 14.2 x10^3/uL (2.2-4.8) H 03/25/19 04:08 Lymph # (Auto) 1.0 X10^3/uL (1.3-2.9) L 03/25/19 04:08 [place] # (Auto) 1.0 x10^3/uL (0.3-0.8) H 03/25/19 04:08 Eos # (Auto) 0.1 x10^3/uL (0.0-0.2) 03/25/19 04:08 Baso # (Auto) 0.1 X10^3/uL (0.0-0.1) 03/25/19 04:08 Absolute Nucleated RBC 0.0 /100WBC 03/25/19 04:08 Sodium 139 mmol/L (136-145) 03/25/19 04:08 Corrected Sodium 143 mmol/L (136-145) 03/25/19 04:08 Potassium 3.9 mmol/L (3.5-5.1) 03/25/19 04:08 Chloride 101 mmol/L (98-107) 03/25/19 04:08 Carbon Dioxide 26.7 mmol/L (21-32) 03/25/19 04:08 BUN 16 mg/dL (7-18) 03/25/19 04:08 Creatinine 1.25 mg/dL (0.55-1.02) H 03/25/19 04:08 Est GFR (MDRD) Af Amer 55 (>60) L 03/25/19 04:08 Est GFR (MDRD) Non-Af 46 (>60) L 03/25/19 04:08 Glucose 281 mg/dL (65-99) H 03/25/19 04:08 POC Glucose (mg/dL) 254 mg/dL (65-99) H 03/25/19 11:14 Calcium 9.0 mg/dL (8.5-10.1) 03/25/19 04:08 Corrected Calcium 9.5 mg/dL (8.5-10.1) 03/24/19 04:08 Magnesium 2.1 mg/dL (1.7-2.9) 03/25/19 04:08 Total Bilirubin 0.30 mg/dL (0.2-1.0) 03/24/19 04:08 AST 11 Units/L (15-37) L 03/24/19 04:08 ALT 10 Units/L (12-78) L 03/24/19 04:08 Alkaline Phosphatase 56 Units/L (46-116) 03/24/19 04:08 Creatine Kinase 43 Units/L (26-192) 03/24/19 23:55 CK-MB (CK-2) < 1.0 ng/mL (0-4.0) 03/24/19 23:55 CK/CKMB % Calc 2.3 % (<4) 03/24/19 23:55 Troponin I < 0.02 ng/mL (0-1.5) 03/24/19 23:55 B-Natriuretic Peptide 82.1 pg/mL (0-79) H 03/23/19 16:37 Total Protein 6.8 g/dL (6.4-8.2) 03/24/19 04:08 Albumin 3.0 g/dL (3.4-5.0) L 03/24/19 04:08 Globulin 3.8 g/dL (2.5-4.5) 03/24/19 04:08 Albumin/Globulin Ratio 0.8 Ratio (1.1-2.1) L 03/24/19 04:08 Specimen Type Clean catch urine 03/23/19 17:55 Urine Color Pale yellow (YELLOW) 03/23/19 17:55 Urine Appearance Clear (CLEAR) 03/23/19 17:55 Urine pH 6.0 (5.0 - 8.0) 03/23/19 17:55 Ur Specific [place] 1.010 (1.000-1.030) 03/23/19 17:55 Urine Protein Negative (NEGATIVE) 03/23/19 17:55 Urine Glucose (UA) 4+ (NEGATIVE) 03/23/19 17:55 Urine Ketones Negative (NEGATIVE) 03/23/19 17:55 Urine Occult Blood Negative (NEGATIVE) 03/23/19 17:55 Urine Nitrite Negative (NEGATIVE) 03/23/19 17:55 Urine Bilirubin Negative (NEGATIVE) 03/23/19 17:55 Urine Urobilinogen Normal (NORMAL) 03/23/19 17:55 Ur Leukocyte Esterase 1+ (NEGATIVE) 03/23/19 17:55 Urine RBC None seen /HPF (0-3) 03/23/19 17:55 Urine WBC 0-2 /HPF (0-5) 03/23/19 17:55 Ur Squamous Epith Cells Rare /HPF (NEGATIVE) 03/23/19 17:55 Urine Bacteria Negative /HPF (NEGATIVE) 03/23/19 17:55 Ur Culture Indicated? No/not indicated 03/23/19 17:55 Stool Description 200g,brown,liquid 03/24/19 10:15 Stl Occult Blood (IFOB) Positive (NEGATIVE) A 03/24/19 10:15 Stool for White Cells Positive (NEGATIVE) A 03/24/19 10:15 Stl C. diff Tox B Gene Negative (NEGATIVE) 03/24/19 10:15 Stl C. diff 027-NAP1-BI Negative (NEGATIVE) 03/24/19 10:15 Plan (1) Nausea & vomiting: Status: Acute Plan: Zofran and Phenergan prn, will start CLD as tolerated (2) Acute exacerbation of CHF (congestive heart failure): Status: Acute Plan: Pt received IV Lasix. CXR suggestive of CHF. Weights reviewed, not much difference compared to prior hospitalization. TTE ordered for tomorrow. Strict I/Os. Continue PO Lasix. (3) Lower extremity edema: Status: Acute (4) Intertrigo: Status: Acute Plan: Nystatin, hygiene, wound care as per nursing. (5) Skin disease, fungal: Status: Acute (6) Diarrhea: Status: Acute Plan: C diff (-), Stool positive for Fecal WBCs, campy negative, WBC trending up. Restart Dicyclomine. (7) Generalized weakness: Status: Acute (8) Gastroesophageal reflux disease: Status: Chronic (9) Hypothyroidism: Status: Chronic (10) Dyslipidemia: Status: Chronic (11) Diabetes mellitus type 2: Status: Chronic (12) Depression: Status: Chronic (13) Chronic obstructive lung disease: Status: Chronic (14) Arthritis: Status: Chronic (15) Anxiety: Status: Chronic (16) Sacral decubitus ulcer: Status: Acute Plan: Chronic, area clean and dry, iodoform packing noted. Followed by Wound Care in [place], [place].
[2019-03-25] MEDS: SNACK - Diabetic Appropriate PO SCH (21:03)
[2019-03-25] MEDS: TRICOR TAB 160 MG PO SCH (21:21)
[2019-03-25] MEDS: ZOCOR TAB 40 MG PO SCH (21:22)
[2019-03-25] MEDS: CYMBALTA PO SCH (21:29)
[2019-03-26 05:31] LABS: CALCIUM 8.4 mg/dL (8.5-10.1); CARBON DIOXIDE 29.8 mmol/L (21-32); CREATININE 1.33 mg/dL (0.55-1.02)
[2019-03-26 05:35] LABS: BASOPHILS % (AUTO) 0.4 % (0.2-1.0); EOSINOPHILS # (AUTO) 0.6 x10^3/uL (0.0-0.2); EOSINOPHILS % (AUTO) 5.9 % (0.9-2.9); HEMATOCRIT 31.7 % (36.0-47.0); HEMOGLOBIN 10.4 g/dL (12.0-16.0); LYMPHOCYTES # (AUTO) 1.7 X10^3/uL (1.3-2.9); LYMPHOCYTES % (AUTO) 16.9 % (21.0-51.0); MEAN CORPUSCULAR HEMOGLOBIN 27.7 pg (27.0-34.0); MEAN CORPUSCULAR HGB CONC 32.8 g/dL (33.0-35.0); MEAN CORPUSCULAR VOLUME 84.5 fL (80.0-100.0); MEAN PLATELET VOLUME 8.1 fL (7.4-11.0); MONOCYTES # (AUTO) 0.8 x10^3/uL (0.3-0.8); MONOCYTES % (AUTO) 8.2 % (0.0-13.0); NEUTROPHILS # (AUTO) 6.9 x10^3/uL (2.2-4.8); NEUTROPHILS % (AUTO) 68.6 % (42.0-75.0); PLATELET COUNT 320 X10^3/uL (150.0-450.0); RED BLOOD COUNT 3.75 X10^6/uL (3.5-5.4); RED CELL DISTRIBUTION WIDTH 13.9 % (11.6-16.5)
--- NOTE | 2019-03-26 05:37 | RAD ---
Chest, 1 view Indication: 'Evaluate for edema versus infection' Comparison: 03/23/2019 Findings: Cardiac silhouette is stable. There is an unchanged left subclavian approach Port-A-Cath. Pulmonary vascular congestion and minimal interstitial thickening is improved compared with prior. No dense infiltrate or significant pleural effusion. Chronic right hemidiaphragm elevation. Impression: Cardiomegaly with minimal edema, improved from prior. Reported By:
[2019-03-26] MEDS: NEURONTIN CAP 400 MG PO SCH ×2 (05:48→13:21)
[2019-03-26 06:19] LABS: BILIRUBIN,URINE NEGATIVE (NEGATIVE); BLOOD/HEMOGLOBIN,URINE 1+ (NEGATIVE); GLUCOSE, URINE 3+ (NEGATIVE); KETONES,URINE NEGATIVE (NEGATIVE); LEUKOCYTE ESTERASE ,URINE 2+ (NEGATIVE); NITRITES,URINE NEGATIVE (NEGATIVE); PROTEIN,URINE 3+ (NEGATIVE); UROBILINOGEN,URINE NORMAL (NORMAL)
[2019-03-26 06:20] LABS: APPEARANCE,URINE HAZY (CLEAR); COLOR,URINE DARK YELLOW (YELLOW)
[2019-03-26 06:30] LABS: BACTERIA,URINE 1+ /HPF (NEGATIVE); MUCUS,URINE MODERATE /HPF (NEGATIVE); SQUAMOUS EPITHELIAL CELL,UR FEW /HPF (NEGATIVE); YEAST,URINE FEW /HPF (NEGATIVE)
[2019-03-26] MEDS ORDERED: DIFLUCAN PO ONE (07:27)
--- NOTE | 2019-03-26 08:56 | PCM.PROG ---
Progress Note Progress Note for Day of Date of Exam: 03/26/19 Subjective Subjective: Patient seen this AM, as per RN report patient more drowsy earlier this morning. During rounds, patient doing ok, answering questions appropriately. Denies N/V. Patient wants to get out of bed and ambulate. Past Medical Family Social History Past Med/Fam/Surg Hx: No changes since H&P Allergies: Allergies oxycodone Allergy (Verified 08/10/18 16:18) Review of Systems ROS: No change since H&P Vital Signs and I&O's Vital Signs: Temperature 98.2 F Pulse Rate [Brachial] 78 Pulse Rate 84 Respiratory Rate 18 Blood Pressure [Right Arm] 127/64 Blood Pressure [Left Arm] 125/62 Blood Pressure 135/60 O2 Sat by Pulse Oximetry 96 Intake and Output: Intake & Output 03/23/19 03/24/19 03/25/19 03/26/19 23:59 23:59 23:59 23:59 Intake Total 320 / 320 1440 / 1440 1640 / 1640 680 / 680 Output Total 1974 / 1974 1050 / 1050 940 / 940 Balance 320 / 320 -535 / -535 590 / 590 -260 / -260 Physical Exam Oriented: Normal Eyes: Normal Ear: Normal Nose: Normal Throat: Normal Cardiovascular: Normal and Edema (+1 pitting edema b/l) Auscultation: Bowel Sounds: Normal Tenderness: Normal Skin: Rash (erythematous, malodorous underneath breast and pannus ) Psychiatric: Normal Mood Description: Calm Speech Pattern: Clear and Appropriate Laboratory and Diagnostics Result Diagrams: 03/26/19 04:14 03/26/19 04:14 Labs: 03/24/19 10:15 Stool Stool Culture - Preliminary 03/24/19 10:15 Stool - Final Laboratory WBC 10.0 X10^3/uL (3.6-10.0) 03/26/19 04:14 RBC 3.75 X10^6/uL (3.5-5.4) 03/26/19 04:14 Hgb 10.4 g/dL (12.0-16.0) L 03/26/19 04:14 Hct 31.7 % (36.0-47.0) L 03/26/19 04:14 MCV 84.5 fL (80.0-100.0) 03/26/19 04:14 MCH 27.7 pg (27.0-34.0) 03/26/19 04:14 MCHC 32.8 g/dL (33.0-35.0) L 03/26/19 04:14 RDW 13.9 % (11.6-16.5) 03/26/19 04:14 Plt Count 320 X10^3/uL (150.0-450.0) 03/26/19 04:14 MPV 8.1 fL (7.4-11.0) 03/26/19 04:14 Neut % (Auto) 68.6 % (42.0-75.0) 03/26/19 04:14 Lymph % (Auto) 16.9 % (21.0-51.0) L 03/26/19 04:14 [place] % (Auto) 8.2 % (0.0-13.0) 03/26/19 04:14 Eos % (Auto) 5.9 % (0.9-2.9) H 03/26/19 04:14 Baso % (Auto) 0.4 % (0.2-1.0) 03/26/19 04:14 Neut # (Auto) 6.9 x10^3/uL (2.2-4.8) H 03/26/19 04:14 Lymph # (Auto) 1.7 X10^3/uL (1.3-2.9) 03/26/19 04:14 [place] # (Auto) 0.8 x10^3/uL (0.3-0.8) 03/26/19 04:14 Eos # (Auto) 0.6 x10^3/uL (0.0-0.2) H 03/26/19 04:14 Baso # (Auto) 0.0 X10^3/uL (0.0-0.1) 03/26/19 04:14 Absolute Nucleated RBC 0.0 /100WBC 03/26/19 04:14 Sodium 138 mmol/L (136-145) 03/26/19 04:14 Corrected Sodium 140 mmol/L (136-145) 03/26/19 04:14 Potassium 3.6 mmol/L (3.5-5.1) 03/26/19 04:14 Chloride 100 mmol/L (98-107) 03/26/19 04:14 Carbon Dioxide 29.8 mmol/L (21-32) 03/26/19 04:14 BUN 20 mg/dL (7-18) H 03/26/19 04:14 Creatinine 1.33 mg/dL (0.55-1.02) H 03/26/19 04:14 Est GFR (MDRD) Af Amer 51 (>60) L 03/26/19 04:14 Est GFR (MDRD) Non-Af 43 (>60) L 03/26/19 04:14 Glucose 168 mg/dL (65-99) H 03/26/19 04:14 POC Glucose (mg/dL) 153 mg/dL (65-99) H 03/26/19 05:42 Calcium 8.4 mg/dL (8.5-10.1) L 03/26/19 04:14 Corrected Calcium 9.5 mg/dL (8.5-10.1) 03/24/19 04:08 Magnesium 2.1 mg/dL (1.7-2.9) 03/25/19 04:08 Total Bilirubin 0.30 mg/dL (0.2-1.0) 03/24/19 04:08 AST 11 Units/L (15-37) L 03/24/19 04:08 ALT 10 Units/L (12-78) L 03/24/19 04:08 Alkaline Phosphatase 56 Units/L (46-116) 03/24/19 04:08 Creatine Kinase 43 Units/L (26-192) 03/24/19 23:55 CK-MB (CK-2) < 1.0 ng/mL (0-4.0) 03/24/19 23:55 CK/CKMB % Calc 2.3 % (<4) 03/24/19 23:55 Troponin I < 0.02 ng/mL (0-1.5) 03/24/19 23:55 B-Natriuretic Peptide 82.1 pg/mL (0-79) H 03/23/19 16:37 Total Protein 6.8 g/dL (6.4-8.2) 03/24/19 04:08 Albumin 3.0 g/dL (3.4-5.0) L 03/24/19 04:08 Globulin 3.8 g/dL (2.5-4.5) 03/24/19 04:08 Albumin/Globulin Ratio 0.8 Ratio (1.1-2.1) L 03/24/19 04:08 Specimen Type Catherized urine 03/26/19 05:40 Urine Color Dark yellow (YELLOW) 03/26/19 05:40 Urine Appearance Hazy (CLEAR) 03/26/19 05:40 Urine pH 5.0 (5.0 - 8.0) 03/26/19 05:40 Ur Specific [place] 1.020 (1.000-1.030) 03/26/19 05:40 Urine Protein 3+ (NEGATIVE) 03/26/19 05:40 Urine Glucose (UA) 3+ (NEGATIVE) 03/26/19 05:40 Urine Ketones Negative (NEGATIVE) 03/26/19 05:40 Urine Occult Blood 1+ (NEGATIVE) 03/26/19 05:40 Urine Nitrite Negative (NEGATIVE) 03/26/19 05:40 Urine Bilirubin Negative (NEGATIVE) 03/26/19 05:40 Urine Urobilinogen Normal (NORMAL) 03/26/19 05:40 Ur Leukocyte Esterase 2+ (NEGATIVE) 03/26/19 05:40 Urine RBC 3-5 /HPF (0-3) A 03/26/19 05:40 Urine WBC Tntc /HPF (0-5) A 03/26/19 05:40 Ur Squamous Epith Cells Few /HPF (NEGATIVE) 03/26/19 05:40 Urine Bacteria 1+ /HPF (NEGATIVE) 03/26/19 05:40 Urine Mucus Moderate /HPF (NEGATIVE) 03/26/19 05:40 Urine Yeast Few /HPF (NEGATIVE) 03/26/19 05:40 Ur Culture Indicated? Yes/culture set up 03/26/19 05:40 Stool Description 200g,brown,liquid 03/24/19 10:15 Stl Occult Blood (IFOB) Positive (NEGATIVE) A 03/24/19 10:15 Stool for White Cells Positive (NEGATIVE) A 03/24/19 10:15 Stl C. diff Tox B Gene Negative (NEGATIVE) 03/24/19 10:15 Stl C. diff 027-NAP1-BI Negative (NEGATIVE) 03/24/19 10:15 Plan (1) Lethargy: Status: Acute Plan: likely due to sedating medications, discussed side effects with patient in detail, avoid excessive use of sedatives or narcotics. (2) UTI (urinary tract infection): Status: Acute Plan: UA reviewed, yeast noted, will give one dose of Diflucan (3) Nausea & vomiting: Status: Acute Plan: Zofran and Phenergan prn, advance diet as tolerated (4) Acute exacerbation of CHF (congestive heart failure): Status: Acute Plan: Pt received IV Lasix. CXR suggestive of CHF. TTE pending for today. Strict I/Os. Continue PO Lasix. (5) Lower extremity edema: Status: Acute (6) Intertrigo: Status: Acute Plan: Nystatin, hygiene, wound care as per nursing. (7) Skin disease, fungal: Status: Acute (8) Diarrhea: Status: Acute Plan: C diff (-), Stool positive for Fecal WBCs, campy negative, WBC trending up. Restart Dicyclomine. (9) Generalized weakness: Status: Acute Plan: PT consult placed (10) Gastroesophageal reflux disease: Status: Chronic (11) Hypothyroidism: Status: Chronic (12) Dyslipidemia: Status: Chronic (13) Diabetes mellitus type 2: Status: Chronic (14) Depression: Status: Chronic (15) Chronic obstructive lung disease: Status: Chronic (16) Arthritis: Status: Chronic (17) Anxiety: Status: Chronic (18) Sacral decubitus ulcer: Status: Acute Plan: Chronic, area clean and dry, iodoform packing noted. Followed by Wound Care in [facility] [place].
[2019-03-26] MEDS ORDERED: BENTYL CAP 10 MG PO ONE (09:13)
[2019-03-26] MEDS: AMARYL TAB 4 MG PO SCH (09:23)
[2019-03-26] MEDS: ABILIFY PO SCH (09:23)
[2019-03-26] MEDS: BENTYL CAP 10 MG PO SCH ×2 (09:24→13:19)
[2019-03-26] MEDS: LEVEMIR SC SCH (09:24)
[2019-03-26] MEDS: COREG TAB 3.125 MG PO SCH (09:24)
[2019-03-26] MEDS: LASIX PO SCH (09:24)
[2019-03-26] MEDS: NYSTATIN POWDER TOP SCH (09:25)
[2019-03-26] MEDS: PEPCID TAB 20 MG PO SCH (09:26)
[2019-03-26] MEDS: SINEMET (PLAIN) 10/100 MG PO SCH (09:26)
[2019-03-26] MEDS: SYNTHROID 125 mcg TAB PO SCH (09:27)
[2019-03-26] MEDS ORDERED: PHARMACY CONSULT - DOSE _____ XX SCH (10:00)
[2019-03-26] MEDS ORDERED: LOVENOX INJ 40 MG SYR SC SCH (10:00)
[2019-03-26] MEDS: HumuLIN R SUBCUT PRN (11:21)
[2019-03-26] MEDS ORDERED: HEPARIN SODIUM INJ 5000 UNITS IVP ONE (13:03)
[2019-03-26] MEDS ORDERED: HEPARIN SODIUM INJ 5000 UNITS ONE (13:04)
[2019-03-26 13:26] VITALS: BP 101/58
--- NOTE | 2019-03-28 15:58 | W.DIS.FURT ---
Summary of Discharge Discharge Summary of Date Date of Exam: 03/26/19 Admission Date Date of Admission: 03/23/19 Admission Diagnosis Patient Problems (Updated 03/28/19 @ 16:22 by Amrik Boyd) Lethargy (Acute) R53.83 UTI (urinary tract infection) (Acute) N39.0 Nausea & vomiting (Acute) R11.2 Sacral decubitus ulcer (Acute) L89.159 Diarrhea (Acute) R19.7 Skin disease, fungal (Acute) B36.9 Intertrigo (Acute) L30.4 Lower extremity edema (Acute) R60.0 Acute exacerbation of CHF (congestive heart failure) (Acute) I50.9 Hospital Course: Ms. Palomares is a 64y/o female with a PMH of CHF, HTN, HLD, anxiety and Type 2 DM presented with generalized weakness, SOB and weight gain. Patient reports increase in bilateral leg swelling. She was seen by her PCP and lasix dose was adjusted but she continued to have increased leg swelling therefore came to the ED. CXR was concerning for pulmonary edema, received lasix IV. She had strict I/Os and daily weights. She also had significant intertrigo under her breast area and pannus. She was started on nystatin powder with improvement. She also had yeast in her urine and received one dose of Diflucan. TTE showed normal LV function and repeat CXR showed improvement in edema. She was seen by PT and they recommended HH with PT. Patient is already estaboshed with home health. Patient stable for discharge, follow up with PCP Tegan Pelletier in 1 week. Vital Signs: Vital Signs (72 hours) 03/25/19 16:00 03/25/19 20:00 03/25/19 21:23 Temperature 98.4 F 98.8 F Pulse Rate [Brachial] 87 97 H Respiratory Rate 20 18 18 Blood Pressure [Left Arm] 173/79 139/65 Blood Pressure [Right Arm] O2 Sat by Pulse Oximetry 96 96 03/25/19 22:23 03/26/19 00:00 03/26/19 04:00 Temperature 98.6 F 98.2 F Pulse Rate [Brachial] 85 78 Respiratory Rate 20 18 18 Blood Pressure [Left Arm] 135/63 125/62 Blood Pressure [Right Arm] O2 Sat by Pulse Oximetry 97 96 03/26/19 08:00 03/26/19 12:00 Temperature 97.9 F 98.8 F Pulse Rate [Brachial] 114 H 102 H Respiratory Rate 20 20 Blood Pressure [Left Arm] Blood Pressure [Right Arm] 122/59 101/58 O2 Sat by Pulse Oximetry 96 98 Labs: Laboratory Last Values WBC 10.0 X10^3/uL (3.6-10.0) 03/26/19 04:14 RBC 3.75 X10^6/uL (3.5-5.4) 03/26/19 04:14 Hgb 10.4 g/dL (12.0-16.0) L 03/26/19 04:14 Hct 31.7 % (36.0-47.0) L 03/26/19 04:14 MCV 84.5 fL (80.0-100.0) 03/26/19 04:14 MCH 27.7 pg (27.0-34.0) 03/26/19 04:14 MCHC 32.8 g/dL (33.0-35.0) L 03/26/19 04:14 RDW 13.9 % (11.6-16.5) 03/26/19 04:14 Plt Count 320 X10^3/uL (150.0-450.0) 03/26/19 04:14 MPV 8.1 fL (7.4-11.0) 03/26/19 04:14 Neut % (Auto) 68.6 % (42.0-75.0) 03/26/19 04:14 Lymph % (Auto) 16.9 % (21.0-51.0) L 03/26/19 04:14 [place] % (Auto) 8.2 % (0.0-13.0) 03/26/19 04:14 Eos % (Auto) 5.9 % (0.9-2.9) H 03/26/19 04:14 Baso % (Auto) 0.4 % (0.2-1.0) 03/26/19 04:14 Neut # (Auto) 6.9 x10^3/uL (2.2-4.8) H 03/26/19 04:14 Lymph # (Auto) 1.7 X10^3/uL (1.3-2.9) 03/26/19 04:14 [place] # (Auto) 0.8 x10^3/uL (0.3-0.8) 03/26/19 04:14 Eos # (Auto) 0.6 x10^3/uL (0.0-0.2) H 03/26/19 04:14 Baso # (Auto) 0.0 X10^3/uL (0.0-0.1) 03/26/19 04:14 Absolute Nucleated RBC 0.0 /100WBC 03/26/19 04:14 Sodium 138 mmol/L (136-145) 03/26/19 04:14 Corrected Sodium 140 mmol/L (136-145) 03/26/19 04:14 Potassium 3.6 mmol/L (3.5-5.1) 03/26/19 04:14 Chloride 100 mmol/L (98-107) 03/26/19 04:14 Carbon Dioxide 29.8 mmol/L (21-32) 03/26/19 04:14 BUN 20 mg/dL (7-18) H 03/26/19 04:14 Creatinine 1.33 mg/dL (0.55-1.02) H 03/26/19 04:14 Est GFR (MDRD) Af Amer 51 (>60) L 03/26/19 04:14 Est GFR (MDRD) Non-Af 43 (>60) L 03/26/19 04:14 Glucose 168 mg/dL (65-99) H 03/26/19 04:14 POC Glucose (mg/dL) 184 mg/dL (65-99) H 03/26/19 11:05 Calcium 8.4 mg/dL (8.5-10.1) L 03/26/19 04:14 Corrected Calcium 9.5 mg/dL (8.5-10.1) 03/24/19 04:08 Magnesium 2.1 mg/dL (1.7-2.9) 03/25/19 04:08 Total Bilirubin 0.30 mg/dL (0.2-1.0) 03/24/19 04:08 AST 11 Units/L (15-37) L 03/24/19 04:08 ALT 10 Units/L (12-78) L 03/24/19 04:08 Alkaline Phosphatase 56 Units/L (46-116) 03/24/19 04:08 Creatine Kinase 43 Units/L (26-192) 03/24/19 23:55 CK-MB (CK-2) < 1.0 ng/mL (0-4.0) 03/24/19 23:55 CK/CKMB % Calc 2.3 % (<4) 03/24/19 23:55 Troponin I < 0.02 ng/mL (0-1.5) 03/24/19 23:55 B-Natriuretic Peptide 82.1 pg/mL (0-79) H 03/23/19 16:37 Total Protein 6.8 g/dL (6.4-8.2) 03/24/19 04:08 Albumin 3.0 g/dL (3.4-5.0) L 03/24/19 04:08 Globulin 3.8 g/dL (2.5-4.5) 03/24/19 04:08 Albumin/Globulin Ratio 0.8 Ratio (1.1-2.1) L 03/24/19 04:08 Specimen Type Catherized urine 03/26/19 05:40 Urine Color Dark yellow (YELLOW) 03/26/19 05:40 Urine Appearance Hazy (CLEAR) 03/26/19 05:40 Urine pH 5.0 (5.0 - 8.0) 03/26/19 05:40 Ur Specific [place] 1.020 (1.000-1.030) 03/26/19 05:40 Urine Protein 3+ (NEGATIVE) 03/26/19 05:40 Urine Glucose (UA) 3+ (NEGATIVE) 03/26/19 05:40 Urine Ketones Negative (NEGATIVE) 03/26/19 05:40 Urine Occult Blood 1+ (NEGATIVE) 03/26/19 05:40 Urine Nitrite Negative (NEGATIVE) 03/26/19 05:40 Urine Bilirubin Negative (NEGATIVE) 03/26/19 05:40 Urine Urobilinogen Normal (NORMAL) 03/26/19 05:40 Ur Leukocyte Esterase 2+ (NEGATIVE) 03/26/19 05:40 Urine RBC 3-5 /HPF (0-3) A 03/26/19 05:40 Urine WBC Tntc /HPF (0-5) A 03/26/19 05:40 Ur Squamous Epith Cells Few /HPF (NEGATIVE) 03/26/19 05:40 Urine Bacteria 1+ /HPF (NEGATIVE) 03/26/19 05:40 Urine Mucus Moderate /HPF (NEGATIVE) 03/26/19 05:40 Urine Yeast Few /HPF (NEGATIVE) 03/26/19 05:40 Ur Culture Indicated? Yes/culture set up 03/26/19 05:40 Stool Description 200g,brown,liquid 03/24/19 10:15 Stl Occult Blood (IFOB) Positive (NEGATIVE) A 03/24/19 10:15 Stool for White Cells Positive (NEGATIVE) A 03/24/19 10:15 Stl C. diff Tox B Gene Negative (NEGATIVE) 03/24/19 10:15 Stl C. diff [id number] Negative (NEGATIVE) 03/24/19 10:15 Reason For Visit: chf,respiratory distress,edema Discharge Date Discharge Date: 03/26/19 Discharge Diagnosis All Active Problems (Updated 03/28/19 @ 16:22 by Amrik Boyd) Acute renal failure (Acute) Sepsis (Acute) Lethargy (Acute) UTI (urinary tract infection) (Acute) Nausea & vomiting (Acute) Sacral decubitus ulcer (Acute) Diarrhea (Acute) Skin disease, fungal (Acute) Intertrigo (Acute) Lower extremity edema (Acute) Acute exacerbation of CHF (congestive heart failure) (Acute) Anxiety (Chronic) Arthritis (Chronic) Asthma (Chronic) Chronic obstructive lung disease (Chronic) Depression (Chronic) Diabetes mellitus type 2 (Chronic) Dyslipidemia (Chronic) Gastroesophageal reflux disease (Chronic) Hypothyroidism (Chronic) Abdominal pain (Acute) History of angina (Chronic) History of kidney stones (Chronic) History of Bowel Resection (Acute) Degenerative joint disease of left hip (Acute) Gastroenteritis (Acute) Contusion of left leg (Acute) Leg edema, left (Acute) Generalized weakness (Acute) Hyperglycemia (Acute) COPD exacerbation (Acute) Cellulitis, leg (Acute) UTI (urinary tract infection) (Acute) Generalized weakness (Acute) UTI (urinary tract infection) (Acute) Plan of Treatment: Continue with present treatment and follow up plan. Pt is to keep follow up appointment as instructed and take medications as ordered. Discharge Medications Discharge Medications: oxycodone Allergy (Verified 08/10/18 16:18) CONTINUE taking the following medications Levemir U-100 Insulin 45 unit SUBCUT BID 03/24/19 [History] Novolog Flexpen U-100 Insulin 1 unit SUBCUT PRN PRN 03/24/19 [History] glimepiride 4 mg PO BID 03/24/19 [History] levothyroxine 125 mcg PO DAILY 03/24/19 [History] New Prescriptions nystatin 1 applic TOP BID 10 Days #30 g 03/26/19 [Rx] Follow up and Referral Follow Up: 1 Week Discharge Disposition Assessment: Patient alert no acute distress noted at time of discharge. Discharge Disposition: Home
== END 2019-03-26 14:40 | disposition home or self-care (01) ==
LOC: MED/SURG 15:45 → ER 15:45 → MED/SURG 22:39
PROVIDERS: ADMIT Family Medicine; ATTEND Family Medicine
CPT/HCPCS: 36415; 71010; 71045; 80048; 80053; 81001; 82270; 82550; 82553; 83630; 83735; 83880; 84484; 85025; 87045; 87086; 87088; 87186; 87427; 87449; 87493; 87899; 90674; 90686; 93005; 93306; 94760; 96365; 96372; 96374; 97162; 97165; 99284; A4216; A4222; G0378; J0400; J1644; J1650; J1815; J1940; J2270; J2405; J2550; J3475; J3490; J7050

== ENCOUNTER 2019-03-26 17:53 | Inpatient (IN) ==
--- NOTE | 2019-03-26 18:52 | DR.SOBA ---
HPI Time Seen Time Seen by Provider: 03/26/19 18:52 Primary Care Physician Primary Care Physician: ALAYNA TORIBIO HPI Comment HPI Comment: PATIENT IS 64YR OLD FEMALE IN THE EMERGENCY ROOM FOR INCREASING SOB AND WEAKNESS. SHE WAS DISCHARGE FROM HOSPITAL TODAY. SHE RECEIVE TREATMENT FOR CHF IN THE HOSPITAL. HAVE FEVER IN ER CURRENTLY. SHE IS WEAK AND DRAIN OF ENERGY. DENIES CHEST PAIN, COUGH OR UTI SYMPTOMD. PATIENT HAVE HISTOY OF ASTHMA, COPD AND CHF. PAIN TO LEGS 7/10. PAIN SHARP RADIATES TO THE FOOT. Complaints Chief Complaint Doctors Comments: INCREASING SOB AND WEAKNESS SINCE GOING HOME FROM THE HOSPITAL TODAY. Chief Complaint:: PT. C/O SHORTNESS OF BREATH AND WEAKNESS. PT. JUST GOT DISHCARGED FROM HOSPITAL TODAY. Reviewed Nurses Notes Reviewed: Yes Source History Provided: Patient and EMS Mode of Arrival Mode of Arrival: EMS Timing Onset of Chief Complaint: 03/26/19 Duration Duration: Days Context Onset:: With Light Exertion PE Risk Factors:: None History of:: Asthma, COPD and CHF Currently on:: Inhaled Bronchodilators and Steroids Prehospital Care:: O2 and Inhaled B2 Modifying Factors Worsens:: Lying Flat Improves:: Sitting Up Associated Signs and Symptoms Associated Signs and Symptoms: Fever, Wheeze and Cough If Chest Pain Quality: Sharp and Pleuritic Location: Substernal and Chest Wall If Cough Cough: Nonproductive and Yellow PMH PMH Past Medical History: Yes Past Medical History: Angina, Anxiety, Arthritis, Asthma, COPD, Depression, Diabetes, Dyslipidemia, GERD, Headaches, Hypothyroidism and Kidney Stones Past Surgical History: Yes Surgical History: Abdominal Surgery, Bowel Resection, Hysterectomy, Ortho Surgery, Tonsillectomy, Lithotripsy and Other Family History History of Family Medical Conditions: Yes Family Medical History: Diabetes Mellitus and ND Social History Does patient currently use any type of tobacco product: No Have you used tobacco products in the last 12 months: No Type of Tobacco Use: None Does any household member use tobacco: No Alcohol Use: None Do you use any recreational Drugs:: No Lives With: Alone Lives Where: Home infectious screening In the last 2 months have you had wt loss of >10#?: NO Have you had fever, night sweats or hemotysis?: No Have you traveled outside the country in the last 6 months?: No Isolation: Standard ROS Review of Systems Constitutional: See HPI, Fever, Weakness and Fatigue; negative Chills Eyes: No Symptoms Reported; negative Eye Pain and Tearing ENTM: See HPI and Nose Congestion; negative Ear Pain, Nose Discharge and Throat Pain Respiratoy: See HPI, Moist Cough and Short of Breath; negative Wheezing Cardiovascular: No Symptoms Reported and See HPI; negative Chest Pain Gastrointestinal/Abdominal: See HPI and Nausea; negative Abdominal Pain, D iarrhea and Vomiting Genitourinary: No Symptoms Reported and See HPI; negative Dysuria and Hematuria Neurological: See HPI, Headache and Weakness; negative Dizziness Musculoskeletal: No Symptoms Reported and See HPI Integumentary: See HPI and Dryness Hematologic/Lymphatic: See HPI and Easy Bruising; negative Swollen Glands Endocrine: No Symptoms Reported and See HPI; negative Increased Thirst and Increased Urine Psychiatric: No Symptoms Reported and See HPI All Other Systems: Reviewed and Negative PE Vital Signs Vitals: Temperature 100.4 F Pulse Rate [Left Brachial] 95 Pulse Rate 101 Respiratory Rate 20 Blood Pressure [Right Arm] 103/54 Blood Pressure 100/56 O2 Sat by Pulse Oximetry 96 General Limitations: No Limitations General Appearance: Alert and In No Apparent Distress Head Head Exam: Normal Inspection and Atraumatic Eyes Eye exam: Normal Appearance and PERRL; negative Scleral Icterus and Conjunctival Injection ENT ENT Exam: Normal Exam, Normal Oropharynx, Normal External Ear Exam and TM's Normal Bilaterally Neck Neck Exam: Normal Inspection and Trachea Midline; negative Tenderness and Lymphadenopathy Chest Chest Inspection: Normal Inspection and Symmetric Chest Wall Rise; negative Tenderness Respiratory Respiratory Exam: Normal Lung Sounds Bilat; negative Accessory Muscle Use, Chest Wall Tenderness and Respiratory Distress Respiratory Exam: Bilateral: Rhonchi and Lower: Rhonchi Cardiovascular Cardiovascular Exam: Regular Rate, Normal Rhythm and Normal Heart Sounds; negative Systolic Murmur and Diastolic Murmur Abdominal Exam Abdominal Exam: Normal Inspection, Normal Bowel Sounds and Soft; negative Tenderness Extremities Extremities Exam: Normal Inspection and Normal Capillary Refill; negative [place]ness Back Back Exam: Normal Inspection; negative Tenderness, (R) CVA Tenderness, (L) CVA Tenderness, Paraspinal Tenderness and Vertebral Tenderness Neurologic Neurological Exam: Alert, Oriented X3 and CN II-XII Intact; negative Motor Sensory Deficit Psychiatric Psychiatric Exam: Normal Affect and Normal Mood Skin Skin Exam: Dry MDM Differential Diagnosis Differential Diagnosis: Bronchitis, CHF, COPD, Dysrhythmia, Hyponatremia, Mycardial Infarction, Pneumonia, Pneumothorax and Respiratory Insufficiency COURSE Treatment Treatment: SEE ORDERS. Consultation Consultation Comments: DISCUSS PATIENT WITH DR MORENO. HE WILL ADMIT PATIENT. Education/Counseling Education/Counseling: Patient Educated On: Diagnosis ROR Labs Reviewed Laboratory Results Reviewed?: Yes Result Diagrams: 04/02/19 05:35 04/02/19 05:35 Laboratory: WBC 22.9 X10^3/uL (3.6-10.0) H D 03/26/19 19:25 RBC 3.70 X10^6/uL (3.5-5.4) 03/26/19 19:25 Hgb 10.0 g/dL (12.0-16.0) L 03/26/19 19:25 Hct 31.2 % (36.0-47.0) L 03/26/19 19:25 MCV 84.2 fL (80.0-100.0) 03/26/19 19:25 MCH 27.1 pg (27.0-34.0) 03/26/19 19:25 MCHC 32.2 g/dL (33.0-35.0) L 03/26/19 19:25 RDW 14.0 % (11.6-16.5) 03/26/19 19:25 Plt Count 290 X10^3/uL (150.0-450.0) 03/26/19 19:25 Plt Count Comment Adequate (ADEQUATE) 03/26/19 19:25 MPV 8.4 fL (7.4-11.0) 03/26/19 19:25 Neut % (Auto) 89.3 % (42.0-75.0) H 03/26/19 19:25 Lymph % (Auto) 4.4 % (21.0-51.0) L 03/26/19 19:25 [place] % (Auto) 5.6 % (0.0-13.0) 03/26/19 19:25 Eos % (Auto) 0.4 % (0.9-2.9) L 03/26/19 19:25 Baso % (Auto) 0.3 % (0.2-1.0) 03/26/19 19:25 Neut # (Auto) 20.4 x10^3/uL (2.2-4.8) H 03/26/19 19:25 Lymph # (Auto) 1.0 X10^3/uL (1.3-2.9) L 03/26/19 19:25 [place] # (Auto) 1.3 x10^3/uL (0.3-0.8) H 03/26/19 19:25 Eos # (Auto) 0.1 x10^3/uL (0.0-0.2) 03/26/19 19:25 Baso # (Auto) 0.1 X10^3/uL (0.0-0.1) 03/26/19 19:25 Absolute Nucleated RBC 0.0 /100WBC 03/26/19 19:25 Total Counted 100 03/26/19 19:25 Neutrophils % (Manual) 80 % (39-76) H 03/26/19 19:25 Band Neutrophils % 9 % (0-10) 03/26/19 19:25 Lymphocytes % (Manual) 4 % (13-43) L 03/26/19 19:25 Monocytes % (Manual) 6 % (4-9) 03/26/19 19:25 Eosinophils % (Manual) 1 % (0-6) 03/26/19 19:25 Plt Morphology Comment Normal (NORMAL) 03/26/19 19:25 RBC Morphology Normal (NORMAL) 03/26/19 19:25 Sodium 132 mmol/L (136-145) L 03/26/19 19:25 Corrected Sodium 134 mmol/L (136-145) L 03/26/19 19:25 Potassium 4.3 mmol/L (3.5-5.1) 03/26/19 19:25 Chloride 95 mmol/L (98-107) L 03/26/19 19:25 Carbon Dioxide 27.4 mmol/L (21-32) 03/26/19 19:25 BUN 28 mg/dL (7-18) H 03/26/19 19:25 Creatinine 2.94 mg/dL (0.55-1.02) H 03/26/19 19:25 Est GFR (MDRD) Af Amer 21 (>60) L 03/26/19 19:25 Est GFR (MDRD) Non-Af 17 (>60) L 03/26/19 19:25 Glucose 175 mg/dL (65-99) H 03/26/19 19:25 Calcium 8.8 mg/dL (8.5-10.1) 03/26/19 19:25 Corrected Calcium 9.8 mg/dL (8.5-10.1) 03/26/19 19:25 Total Bilirubin 0.30 mg/dL (0.2-1.0) 03/26/19 19:25 AST 17 Units/L (15-37) 03/26/19 19:25 ALT 11 Units/L (12-78) L 03/26/19 19:25 Alkaline Phosphatase 53 Units/L (46-116) 03/26/19 19:25 Creatine Kinase 117 Units/L (26-192) 03/26/19 19:25 CK-MB (CK-2) < 1.0 ng/mL (0-4.0) 03/26/19 19:25 CK/CKMB % Calc 0.9 % (<4) 03/26/19 19:25 Troponin I < 0.02 ng/mL (0-1.5) 03/26/19 19:25 Total Protein 6.6 g/dL (6.4-8.2) 03/26/19 19:25 Albumin 2.7 g/dL (3.4-5.0) L 03/26/19 19:25 Globulin 3.9 g/dL (2.5-4.5) 03/26/19 19:25 Albumin/Globulin Ratio 0.7 Ratio (1.1-2.1) L 03/26/19 19:25 XRAY XRAY Interpreted by: Radiologist XRAY Findings: REPORT NOTED AND DISCUSSED WITH PATIENT. Opioid Opioid Risk Tool Age (Jose Luis box if 16-45): No History of Preadolescent Sexual Abuse: No Total: 0 Total Score Risk Category: Low Risk Copyright: Tony QUINONES predicting aberrant behaviors Diagnosis Discharge Problem: Generalized weakness, COPD exacerbation, SOB (shortness of breath) UTI (urinary tract infection) Qualifiers: Urinary tract infection type: site unspecified Hematuria presence: without hematuria Qualified Code(s): N39.0 - Urinary tract infection, site not specified Instructions Instructions: Chronic Obstructive Pulmonary Disease, [id number] Sepsis, Adult Weakness, [id number] Urinary Tract Infection, Adult, Gpxl-sa-Sdfe Edema, Zndv-bz-Ukmf Diarrhea, Adult, Yzse-cs-Mkdf Forms: Patient Portal
[2019-03-26 19:42] LABS: BASOPHILS # (AUTO) 0.1 X10^3/uL (0.0-0.1); BASOPHILS % (AUTO) 0.3 % (0.2-1.0); EOSINOPHILS # (AUTO) 0.1 x10^3/uL (0.0-0.2); EOSINOPHILS % (AUTO) 0.4 % (0.9-2.9); HEMATOCRIT 31.2 % (36.0-47.0); LYMPHOCYTES % (AUTO) 4.4 % (21.0-51.0); MEAN CORPUSCULAR HEMOGLOBIN 27.1 pg (27.0-34.0); MEAN CORPUSCULAR HGB CONC 32.2 g/dL (33.0-35.0); MEAN CORPUSCULAR VOLUME 84.2 fL (80.0-100.0); MEAN PLATELET VOLUME 8.4 fL (7.4-11.0); MONOCYTES # (AUTO) 1.3 x10^3/uL (0.3-0.8); MONOCYTES % (AUTO) 5.6 % (0.0-13.0); NEUTROPHILS # (AUTO) 20.4 x10^3/uL (2.2-4.8); NEUTROPHILS % (AUTO) 89.3 % (42.0-75.0); PLATELET COUNT 290 X10^3/uL (150.0-450.0); WHITE BLOOD COUNT 22.9 X10^3/uL (3.6-10.0)
[2019-03-26 19:51] LABS: BAND NEUTROPHILS % 9 % (0-10); BLOOD UREA NITROGEN 28 mg/dL (7-18); CALCIUM 8.8 mg/dL (8.5-10.1); CARBON DIOXIDE 27.4 mmol/L (21-32); CHLORIDE 95 mmol/L (98-107); COR NA(FOR HYPERGLY) 134 mmol/L (136-145); CREATININE 2.94 mg/dL (0.55-1.02); PLATELET MORPHOLOGY COMMENT NORMAL (NORMAL); SODIUM 132 mmol/L (136-145); TROPONIN I < 0.02 ng/mL (0-1.5); eGFR NON BLACK RACES 17 (>60)
[2019-03-26 19:55] LABS: ALANINE AMINOTRANSFERASE 11 Units/L (12-78); ALBUMIN 2.7 g/dL (3.4-5.0); ALKALINE PHOSPHATASE 53 Units/L (46-116); ASPARTATE AMINO TRANSFERASE 17 Units/L (15-37); CKMB % 0.9 % (<4); COR CA(FOR HYPOALB) 9.8 mg/dL (8.5-10.1); CREATINE KINASE 117 Units/L (26-192); CREATINE KINASE MB < 1.0 ng/mL (0-4.0); TOTAL PROTEIN 6.6 g/dL (6.4-8.2)
[2019-03-26 21:12] VITALS: BMI 36.3
[2019-03-26 21:52] LABS: BILIRUBIN,URINE 2+ (NEGATIVE); BLOOD/HEMOGLOBIN,URINE 5+ (NEGATIVE); GLUCOSE, URINE NEGATIVE (NEGATIVE); KETONES,URINE 1+ (NEGATIVE); LEUKOCYTE ESTERASE ,URINE 3+ (NEGATIVE); NITRITES,URINE NEGATIVE (NEGATIVE); PROTEIN,URINE 3+ (NEGATIVE); UROBILINOGEN,URINE 1+ (NORMAL)
[2019-03-26 21:59] LABS: AMORPHOUS SEDIMENT,UR 1+ /HPF (NEGATIVE); APPEARANCE,URINE TURBID (CLEAR); BACTERIA,URINE TRACE /HPF (NEGATIVE); COLOR,URINE AMBER (YELLOW); SQUAMOUS EPITHELIAL CELL,UR RARE /HPF (NEGATIVE)
[2019-03-26 22:00] LABS: YEAST,URINE MODERATE /HPF (NEGATIVE)
[2019-03-26 23:46] LABS: CKMB % 0.6 % (<4); CREATINE KINASE 170 Units/L (26-192); CREATINE KINASE MB < 1.0 ng/mL (0-4.0); TROPONIN I < 0.02 ng/mL (0-1.5)
[2019-03-26] MEDS: NYSTATIN POWDER TOP SCH (23:55)
[2019-03-26] MEDS: XANAX PO PRN (23:55)
[2019-03-27 05:36] LABS: BASOPHILS # (AUTO) 0.1 X10^3/uL (0.0-0.1); BASOPHILS % (AUTO) 0.5 % (0.2-1.0); EOSINOPHILS # (AUTO) 0.2 x10^3/uL (0.0-0.2); EOSINOPHILS % (AUTO) 0.9 % (0.9-2.9); HEMATOCRIT 30.8 % (36.0-47.0); HEMOGLOBIN 10.1 g/dL (12.0-16.0); LYMPHOCYTES # (AUTO) 1.1 X10^3/uL (1.3-2.9); LYMPHOCYTES % (AUTO) 5.6 % (21.0-51.0); MEAN CORPUSCULAR HEMOGLOBIN 27.4 pg (27.0-34.0); MEAN CORPUSCULAR HGB CONC 32.8 g/dL (33.0-35.0); MEAN CORPUSCULAR VOLUME 83.6 fL (80.0-100.0); MEAN PLATELET VOLUME 8.6 fL (7.4-11.0); MONOCYTES # (AUTO) 1.3 x10^3/uL (0.3-0.8); MONOCYTES % (AUTO) 6.8 % (0.0-13.0); NEUTROPHILS # (AUTO) 16.3 x10^3/uL (2.2-4.8); NEUTROPHILS % (AUTO) 86.2 % (42.0-75.0); PLATELET COUNT 277 X10^3/uL (150.0-450.0); RED BLOOD COUNT 3.69 X10^6/uL (3.5-5.4); RED CELL DISTRIBUTION WIDTH 13.8 % (11.6-16.5); WHITE BLOOD COUNT 18.9 X10^3/uL (3.6-10.0)
[2019-03-27] MEDS: HumuLIN R SUBCUT PRN ×2 (06:03→16:31)
[2019-03-27 06:09] LABS: ALANINE AMINOTRANSFERASE 9 Units/L (12-78); ALBUMIN 2.7 g/dL (3.4-5.0); ALKALINE PHOSPHATASE 57 Units/L (46-116); ASPARTATE AMINO TRANSFERASE 20 Units/L (15-37); BLOOD UREA NITROGEN 33 mg/dL (7-18); CALCIUM 8.7 mg/dL (8.5-10.1); CHLORIDE 94 mmol/L (98-107); CKMB % 0.4 % (<4); COR CA(FOR HYPOALB) 9.7 mg/dL (8.5-10.1); COR NA(FOR HYPERGLY) 133 mmol/L (136-145); CREATINE KINASE 234 Units/L (26-192); CREATINE KINASE MB < 1.0 ng/mL (0-4.0); CREATININE 3.01 mg/dL (0.55-1.02); MAGNESIUM 1.8 mg/dL (1.7-2.9); SODIUM 131 mmol/L (136-145); TOTAL PROTEIN 6.7 g/dL (6.4-8.2); TROPONIN I < 0.02 ng/mL (0-1.5); eGFR NON BLACK RACES 17 (>60)
--- NOTE | 2019-03-27 09:09 | RAD ---
History: Shortness of breath Study: Portable AP chest Comparison: March 26, 2019 Findings: There is moderate cardiomegaly in there is minimal vascular congestion. There is no edema or effusion demonstrated. There is a left-sided Port-A-Cath with the tip in the distal SVC. Impression: Cardiomegaly and vascular congestion Reported By:
[2019-03-27] MEDS ORDERED: BENTYL CAP 10 MG PO PRN (09:27)
[2019-03-27] MEDS ORDERED: NS 1000 ML 1,000 ML IV SCH (10:00)
[2019-03-27] MEDS: NYSTATIN POWDER TOP SCH ×2 (10:33→21:14)
[2019-03-27 12:11] LABS: CRYPTOSPORIDIUM PARVUM ANTIGEN NEGATIVE (NEGATIVE); GIARDIA LAMBLIA ANTIGEN NEGATIVE (NEGATIVE)
[2019-03-27] MEDS ORDERED: SALINE 3% 15 ML NEB TX NEB ONE (13:43)
[2019-03-27] MEDS ORDERED: NORCO 10/325 TAB ONE (14:26)
[2019-03-27] MEDS: NORCO 10/325 TAB PO PRN (14:29)
[2019-03-27] MEDS ORDERED: LASIX IVP ONE (14:31)
[2019-03-27] MEDS: LOVENOX INJ 30 MG SYR SC SCH (15:10)
[2019-03-27] MEDS: NS 1000 ML 1,000 ML IV SCH (15:11)
--- NOTE | 2019-03-27 15:19 | RAD ---
History: Nausea and vomiting and diarrhea Study: Flat and decubitus views of the abdomen Comparison: None Findings: The bowel gas pattern is unremarkable. There are surgical clips projecting in the pelvis. No soft tissue calcification is demonstrated. There are degenerative changes in the spine. No free air or fluid level is demonstrated Impression: No acute disease Reported By:
[2019-03-27] MEDS ORDERED: PHARMACY CONSULT - VANCOMYCIN XX SCH (18:00)
[2019-03-27] MEDS ORDERED: VANCOMYCIN HCL 500 MG, VANCOMYCIN HCL 1 G in D5W 250 ML IV 250 ML IV ONE (20:00)
[2019-03-27] MEDS ORDERED: TRICOR TAB 160 MG PO SCH (21:00)
[2019-03-27] MEDS ORDERED: CYMBALTA PO SCH (21:00)
[2019-03-27] MEDS: SNACK - Diabetic Appropriate PO SCH (21:13)
[2019-03-27] MEDS: SINEMET (PLAIN) 10/100 MG PO SCH (21:13)
[2019-03-27] MEDS: COREG TAB 3.125 MG PO SCH (21:14)
[2019-03-27] MEDS ORDERED: NS 250 ML IV 250 ML IV ONE (21:42)
[2019-03-27] MEDS ORDERED: DIFLUCAN 200 MG IV PREMIX* 200 MG/100 ML BAG IV ONE (21:42)
[2019-03-27] MEDS ORDERED: VANCOMYCIN HCL ONE ×2 (21:42→21:43)
[2019-03-27] MEDS: DIFLUCAN 100 MG IV (MIX by PHARMACY)* 100 MG/50 ML BAG IV SCH (22:19)
[2019-03-28] MEDS: HumuLIN R SUBCUT PRN ×3 (00:13→21:18)
[2019-03-28 05:20] LABS: ALBUMIN 2.4 g/dL (3.4-5.0); CALCIUM 8.2 mg/dL (8.5-10.1); CARBON DIOXIDE 24.5 mmol/L (21-32); COR CA(FOR HYPOALB) 9.5 mg/dL (8.5-10.1); CREATININE 2.36 mg/dL (0.55-1.02); TOTAL PROTEIN 6.4 g/dL (6.4-8.2)
[2019-03-28 05:21] LABS: BASOPHILS # (AUTO) 0.1 X10^3/uL (0.0-0.1); BASOPHILS % (AUTO) 0.4 % (0.2-1.0); EOSINOPHILS # (AUTO) 0.2 x10^3/uL (0.0-0.2); EOSINOPHILS % (AUTO) 1.3 % (0.9-2.9); HEMATOCRIT 29.7 % (36.0-47.0); HEMOGLOBIN 9.9 g/dL (12.0-16.0); LYMPHOCYTES # (AUTO) 1.1 X10^3/uL (1.3-2.9); LYMPHOCYTES % (AUTO) 7.4 % (21.0-51.0); MEAN CORPUSCULAR HEMOGLOBIN 27.6 pg (27.0-34.0); MEAN CORPUSCULAR HGB CONC 33.4 g/dL (33.0-35.0); MEAN CORPUSCULAR VOLUME 82.5 fL (80.0-100.0); MEAN PLATELET VOLUME 8.5 fL (7.4-11.0); MONOCYTES # (AUTO) 1.2 x10^3/uL (0.3-0.8); MONOCYTES % (AUTO) 8.1 % (0.0-13.0); NEUTROPHILS # (AUTO) 12.7 x10^3/uL (2.2-4.8); NEUTROPHILS % (AUTO) 82.8 % (42.0-75.0); PLATELET COUNT 217 X10^3/uL (150.0-450.0); WHITE BLOOD COUNT 15.3 X10^3/uL (3.6-10.0)
[2019-03-28] MEDS: NORCO 10/325 TAB PO PRN ×2 (08:59→16:15)
[2019-03-28] MEDS: COREG TAB 3.125 MG PO SCH ×2 (09:00→21:10)
[2019-03-28] MEDS: SINEMET (PLAIN) 10/100 MG PO SCH ×2 (09:00→21:10)
[2019-03-28] MEDS: SYNTHROID 125 mcg TAB PO SCH (09:00)
[2019-03-28] MEDS: NYSTATIN POWDER TOP SCH ×2 (09:01→21:10)
[2019-03-28] MEDS: LOVENOX INJ 30 MG SYR SC SCH (09:01)
[2019-03-28] MEDS: ABILIFY PO SCH (09:01)
[2019-03-28] MEDS: VANCOMYCIN HCL 250 MG, VANCOMYCIN HCL 1 G in D5W 250 ML IV 250 ML IV SCH (10:15)
[2019-03-28] MEDS: DIFLUCAN 100 MG IV (MIX by PHARMACY)* 100 MG/50 ML BAG IV SCH (10:53)
--- NOTE | 2019-03-28 13:51 | DR.H&P ---
H&P - History & Physical for Day of: H&P Date: 03/26/19 - Chief Complaint Chief Complaint: SOB, FEVER - History of Present Illness History of Present Illness: 64 WF ER ADMISSON WITH CO SOB. PT WAS RECENTLY D/C FROM [facility]. PT HAD FEVER IN ER WITH WBC >22k, ELEVATED BUN AND CREAT. PT HAS PMH OF CAD, CHF, OA, COPD, DM, MOSES. PT WAS ADMITTED FOR SEPTIC WORK UP. - Past Medical History Past Medical History: Angina, Dyslipidemia, Diabetes, Depression, Anxiety, Hypothyroidism, COPD, Asthma, GERD, Arthritis, Kidney Stones, Headaches Additional Medical History: MORBID OBESITY; VITAMIN B12 DEFICIENCY; LUMBOSACAL RADICULOPATHY - Past Surgical History Surgical History: Abdominal Surgery, Bowel Resection, Hysterectomy, Lithotripsy, Ortho Surgery, Other, Tonsillectomy - Family History Family Medical History: Diabetes Mellitus, [place] - Social History Does patient currently use any type of tobacco product: No Have you used tobacco products in the last 12 months: No Type of Tobacco Use: None Does any household member use tobacco: No Alcohol Use: None Drug Use: None - Medications Home Medications: oxycodone Allergy (Verified 08/10/18 16:18) - Review of Systems Constitutional: Fever, Chills, Weakness Eyes: No Symptoms Reported, Vision Change Respiratory: Shortness of Breath Cardiovascular: Edema Gastrointestinal: Nausea, Diarrhea Genitourinary: No Symptoms Reported Musculoskeletal: Back Pain, Leg Pain Skin: Wound Neurological: Weakness - Physical Exam Vital Signs: Temperature 97.7 F Pulse Rate [Left Brachial] 78 Pulse Rate 110 Respiratory Rate 18 Blood Pressure [Left Arm] 100/50 Blood Pressure [Right Arm] 135/63 Blood Pressure 100/56 O2 Sat by Pulse Oximetry 96 Oriented: Normal Eyes: Normal Ear: Normal, Left Throat: Normal Respiratory: Rhonchi Throughout, RLL Diminished, LLL Diminished Cardiovascular: Normal, Edema. negative: Murmur : Normal Auscultation: Bowel Sounds: Increased Palpation: Normal Tenderness: Normal, Other (COLOSTOMY PRESENT) Skin: Decreased Turgur, Wound (SMALL CHRONIC TUNNELING SACRAL DECUBITUS WITHOUT D/C WO REDNESS) Musculoskeletal: Right, Left, Leg, Back:Lumbar, Swelling, Tender Psychiatric: Anxiety Affect: Anxious Speech Pattern: Clear, Appropriate - Assessment/Plan (1) Sepsis Status: Acute Plan: ADMIT, BLOOD AND URINE CULTURES. WOUND CULTURE. STOOL CULTURES, IV HYDRATION STRICT I & OS. RESP THERAPY SUPPLEMENTAL O2. CXR ON ADMISSION, IV VANCOMYCIN. BP CONTROL, BS CONTROL (2) Acute renal failure Status: Acute (3) Acute exacerbation of CHF (congestive heart failure) Status: Acute (4) COPD exacerbation Status: Acute (5) Diarrhea Status: Acute (6) Sacral decubitus ulcer Status: Acute (7) UTI (urinary tract infection) Status: Acute (8) Diabetes mellitus type 2 Status: Chronic (9) Gastroesophageal reflux disease Status: Chronic - Allergies Allergies/Adverse Reactions: Allergies Allergy/AdvReac Type Severity Reaction Status Date / Time oxycodone Allergy Verified 08/10/18 16:18
[2019-03-28] MEDS: ROCEPHIN VIAL 1 GRAM 1 G in NS 100 ML IV + SPIKE MINIBAG* 100 ML IV SCH (16:16)
[2019-03-28] MEDS: SNACK - Diabetic Appropriate PO SCH (21:08)
[2019-03-28] MEDS: NS 1000 ML 1,000 ML IV SCH (21:08)
[2019-03-28] MEDS: ZOFRAN INJ 4 MG VIAL IVP PRN (22:57)
[2019-03-29 05:19] LABS: BASOPHILS # (AUTO) 0.1 X10^3/uL (0.0-0.1); BASOPHILS % (AUTO) 0.7 % (0.2-1.0); EOSINOPHILS # (AUTO) 0.5 x10^3/uL (0.0-0.2); EOSINOPHILS % (AUTO) 4.9 % (0.9-2.9); HEMATOCRIT 29.7 % (36.0-47.0); HEMOGLOBIN 9.8 g/dL (12.0-16.0); LYMPHOCYTES # (AUTO) 1.2 X10^3/uL (1.3-2.9); LYMPHOCYTES % (AUTO) 11.3 % (21.0-51.0); MEAN CORPUSCULAR HEMOGLOBIN 27.5 pg (27.0-34.0); MEAN CORPUSCULAR HGB CONC 33.1 g/dL (33.0-35.0); MEAN CORPUSCULAR VOLUME 83.1 fL (80.0-100.0); MEAN PLATELET VOLUME 9.1 fL (7.4-11.0); MONOCYTES # (AUTO) 1.2 x10^3/uL (0.3-0.8); MONOCYTES % (AUTO) 11.3 % (0.0-13.0); NEUTROPHILS # (AUTO) 7.7 x10^3/uL (2.2-4.8); NEUTROPHILS % (AUTO) 71.8 % (42.0-75.0); PLATELET COUNT 179 X10^3/uL (150.0-450.0); RED BLOOD COUNT 3.57 X10^6/uL (3.5-5.4); RED CELL DISTRIBUTION WIDTH 14.1 % (11.6-16.5); WHITE BLOOD COUNT 10.8 X10^3/uL (3.6-10.0)
[2019-03-29 05:27] LABS: ALBUMIN 2.3 g/dL (3.4-5.0); CALCIUM 8.5 mg/dL (8.5-10.1); CARBON DIOXIDE 25.9 mmol/L (21-32); COR CA(FOR HYPOALB) 9.9 mg/dL (8.5-10.1); CREATININE 1.59 mg/dL (0.55-1.02); TOTAL PROTEIN 6.4 g/dL (6.4-8.2)
[2019-03-29] MEDS: HumuLIN R SUBCUT PRN ×4 (06:29→22:00)
[2019-03-29] MEDS: SINEMET (PLAIN) 10/100 MG PO SCH ×2 (08:55→20:13)
[2019-03-29] MEDS: COREG TAB 3.125 MG PO SCH ×2 (08:55→20:13)
[2019-03-29] MEDS: SYNTHROID 125 mcg TAB PO SCH (08:55)
[2019-03-29] MEDS: NORCO 10/325 TAB PO PRN (08:57)
[2019-03-29] MEDS: VANCOMYCIN HCL 250 MG, VANCOMYCIN HCL 1 G in D5W 250 ML IV 250 ML IV SCH (08:59)
[2019-03-29] MEDS: ROCEPHIN VIAL 1 GRAM 1 G in NS 100 ML IV + SPIKE MINIBAG* 100 ML IV SCH (09:04)
[2019-03-29] MEDS: ABILIFY PO SCH (09:04)
[2019-03-29] MEDS: LOVENOX INJ 30 MG SYR SC SCH (10:24)
[2019-03-29] MEDS: NYSTATIN POWDER TOP SCH ×2 (10:24→20:13)
[2019-03-29] MEDS: ZOFRAN INJ 4 MG VIAL IVP PRN (10:30)
[2019-03-29] MEDS: DIFLUCAN 100 MG IV (MIX by PHARMACY)* 100 MG/50 ML BAG IV SCH (10:53)
[2019-03-29] MEDS ORDERED: LASIX IVP ONE (12:50)
[2019-03-29] MEDS: NS 1000 ML 1,000 ML IV SCH (19:10)
[2019-03-29] MEDS: XANAX PO PRN (19:20)
[2019-03-29] MEDS: SNACK - Diabetic Appropriate PO SCH (21:42)
--- NOTE | 2019-03-29 21:59 | RAD ---
HISTORY: 64-year-old female with CHF and COPD. Study: Frontal view of the chest. Comparison: Chest radiograph 03/27/2019 Findings: Left chest chemo port is unchanged. The trachea is midline. The cardiac silhouette is stably enlarged with mild pulmonary edema superimposed upon chronic prominence interstitium and perihilar lung markings. The lungs are clear without focal consolidation, effusion or pneumothorax. Soft tissues are unremarkable. Osseous structures are unremarkable. IMPRESSION: 1. Mild pulmonary edema, correlate with serology to exclude underlying infection and CHF exacerbation. 2. Chronic cardiomegaly and COPD. Reported By:
[2019-03-30] MEDS: NORCO 10/325 TAB PO PRN ×3 (03:06→22:30)
[2019-03-30 04:47] LABS: BASOPHILS # (AUTO) 0.1 X10^3/uL (0.0-0.1); BASOPHILS % (AUTO) 0.6 % (0.2-1.0); EOSINOPHILS # (AUTO) 0.6 x10^3/uL (0.0-0.2); EOSINOPHILS % (AUTO) 5.8 % (0.9-2.9); HEMATOCRIT 29.9 % (36.0-47.0); LYMPHOCYTES # (AUTO) 1.2 X10^3/uL (1.3-2.9); MEAN CORPUSCULAR HEMOGLOBIN 27.5 pg (27.0-34.0); MEAN CORPUSCULAR HGB CONC 33.2 g/dL (33.0-35.0); MEAN CORPUSCULAR VOLUME 82.8 fL (80.0-100.0); MEAN PLATELET VOLUME 8.8 fL (7.4-11.0); MONOCYTES # (AUTO) 1.2 x10^3/uL (0.3-0.8); MONOCYTES % (AUTO) 11.9 % (0.0-13.0); NEUTROPHILS # (AUTO) 7.2 x10^3/uL (2.2-4.8); NEUTROPHILS % (AUTO) 69.7 % (42.0-75.0); PLATELET COUNT 186 X10^3/uL (150.0-450.0); RED BLOOD COUNT 3.62 X10^6/uL (3.5-5.4); RED CELL DISTRIBUTION WIDTH 14.2 % (11.6-16.5); WHITE BLOOD COUNT 10.3 X10^3/uL (3.6-10.0)
[2019-03-30 05:08] LABS: ALBUMIN 2.3 g/dL (3.4-5.0); CALCIUM 8.8 mg/dL (8.5-10.1); CARBON DIOXIDE 28.1 mmol/L (21-32); COR CA(FOR HYPOALB) 10.2 mg/dL (8.5-10.1); CREATININE 1.31 mg/dL (0.55-1.02); TOTAL PROTEIN 6.4 g/dL (6.4-8.2)
[2019-03-30] MEDS: HumuLIN R SUBCUT PRN ×4 (06:38→21:41)
[2019-03-30] MEDS: NS 1000 ML 1,000 ML IV SCH ×2 (06:58→15:33)
[2019-03-30] MEDS: DIFLUCAN 100 MG IV (MIX by PHARMACY)* 100 MG/50 ML BAG IV SCH (09:06)
[2019-03-30] MEDS: VANCOMYCIN HCL 250 MG, VANCOMYCIN HCL 1 G in D5W 250 ML IV 250 ML IV SCH (09:06)
[2019-03-30] MEDS: SYNTHROID 125 mcg TAB PO SCH (09:07)
[2019-03-30] MEDS: COREG TAB 3.125 MG PO SCH ×2 (09:07→21:01)
[2019-03-30] MEDS: SINEMET (PLAIN) 10/100 MG PO SCH ×2 (09:14→21:01)
[2019-03-30] MEDS: ABILIFY PO SCH (09:14)
[2019-03-30] MEDS: NYSTATIN POWDER TOP SCH ×2 (09:14→21:02)
[2019-03-30] MEDS: LOVENOX INJ 30 MG SYR SC SCH (09:15)
[2019-03-30] MEDS: ROCEPHIN VIAL 1 GRAM 1 G in NS 100 ML IV + SPIKE MINIBAG* 100 ML IV SCH (09:16)
[2019-03-30] MEDS: MORPHINE SULFATE INJ 2 MG INJ IVP PRN ×2 (11:34→18:27)
[2019-03-30] MEDS: INVANZ INJ 1 GM VIAL 1 GM in NS 100 ML IV + SPIKE MINIBAG* 100 ML IV SCH (13:04)
[2019-03-30] MEDS: LASIX IVP SCH (15:34)
[2019-03-30] MEDS: SNACK - Diabetic Appropriate PO SCH (20:00)
[2019-03-31] MEDS: MORPHINE SULFATE INJ 2 MG INJ IVP PRN ×2 (04:17→18:15)
[2019-03-31] MEDS: HumuLIN R SUBCUT PRN ×4 (06:22→21:40)
--- NOTE | 2019-03-31 06:40 | RAD ---
Examination: AP chest History: CHF COPD Comparison 03/29/2019 Findings: Continued cardiomegaly of moderate degree. The lungs are now essentially clear. There is a left subclavian injection port terminating near the cavoatrial junction. Impression: Cardiomegaly. No acute pulmonary or pleural lesion identified. Reported By:
[2019-03-31 06:59] LABS: BASOPHILS # (AUTO) 0.1 X10^3/uL (0.0-0.1); BASOPHILS % (AUTO) 0.9 % (0.2-1.0); EOSINOPHILS # (AUTO) 0.7 x10^3/uL (0.0-0.2); EOSINOPHILS % (AUTO) 6.5 % (0.9-2.9); HEMATOCRIT 29.7 % (36.0-47.0); LYMPHOCYTES # (AUTO) 1.6 X10^3/uL (1.3-2.9); LYMPHOCYTES % (AUTO) 15.2 % (21.0-51.0); MEAN CORPUSCULAR HEMOGLOBIN 27.4 pg (27.0-34.0); MEAN CORPUSCULAR HGB CONC 33.6 g/dL (33.0-35.0); MEAN CORPUSCULAR VOLUME 81.7 fL (80.0-100.0); MEAN PLATELET VOLUME 8.2 fL (7.4-11.0); MONOCYTES # (AUTO) 1.1 x10^3/uL (0.3-0.8); MONOCYTES % (AUTO) 10.7 % (0.0-13.0); NEUTROPHILS # (AUTO) 6.8 x10^3/uL (2.2-4.8); NEUTROPHILS % (AUTO) 66.7 % (42.0-75.0); PLATELET COUNT 234 X10^3/uL (150.0-450.0); RED BLOOD COUNT 3.63 X10^6/uL (3.5-5.4); RED CELL DISTRIBUTION WIDTH 14.3 % (11.6-16.5); WHITE BLOOD COUNT 10.2 X10^3/uL (3.6-10.0)
[2019-03-31 07:12] LABS: ALBUMIN 2.4 g/dL (3.4-5.0); CALCIUM 8.7 mg/dL (8.5-10.1); CARBON DIOXIDE 26.3 mmol/L (21-32); CREATININE 1.19 mg/dL (0.55-1.02); TOTAL PROTEIN 6.5 g/dL (6.4-8.2)
[2019-03-31 07:34] LABS: BAND NEUTROPHILS % 4 % (0-10)
[2019-03-31 07:35] LABS: PLATELET MORPHOLOGY COMMENT NORMAL (NORMAL)
[2019-03-31] MEDS ORDERED: PHARMACY COMMENT IV NR (08:30)
[2019-03-31 09:15] LABS: CREATININE 1.1 mg/dL (0.55-1.02)
[2019-03-31] MEDS: ABILIFY PO SCH (09:15)
[2019-03-31] MEDS: COREG TAB 3.125 MG PO SCH ×2 (09:16→21:39)
[2019-03-31] MEDS: INVANZ INJ 1 GM VIAL 1 GM in NS 100 ML IV + SPIKE MINIBAG* 100 ML IV SCH (09:17)
[2019-03-31] MEDS: LASIX IVP SCH ×2 (09:17→10:42)
[2019-03-31] MEDS: DIFLUCAN 200 MG IV PREMIX* 200 MG/100 ML BAG IV SCH (09:17)
[2019-03-31] MEDS: LOVENOX INJ 30 MG SYR SC SCH (09:18)
[2019-03-31] MEDS: NYSTATIN POWDER TOP SCH ×2 (09:18→21:39)
[2019-03-31] MEDS: SINEMET (PLAIN) 10/100 MG PO SCH ×2 (09:18→21:39)
[2019-03-31] MEDS: SYNTHROID 125 mcg TAB PO SCH (09:20)
[2019-03-31] MEDS: NORCO 10/325 TAB PO PRN ×2 (09:47→21:47)
[2019-03-31] MEDS: XANAX PO PRN ×2 (10:24→21:47)
[2019-03-31] MEDS: VANCOMYCIN HCL 250 MG, VANCOMYCIN HCL 1 G in D5W 250 ML IV 250 ML IV SCH (10:25)
[2019-03-31] MEDS: NS 1000 ML 1,000 ML IV SCH ×2 (10:25→16:53)
[2019-03-31] MEDS ORDERED: BUTT CREAM (COMPOUND) TOP PRN (12:16)
[2019-03-31] MEDS: SNACK - Diabetic Appropriate PO SCH (20:00)
[2019-04-01] MEDS: NS 1000 ML 1,000 ML IV SCH ×2 (02:31→21:32)
[2019-04-01] MEDS: HumuLIN R SUBCUT PRN ×3 (05:54→21:35)
[2019-04-01 06:05] LABS: BASOPHILS # (AUTO) 0.1 X10^3/uL (0.0-0.1); BASOPHILS % (AUTO) 0.9 % (0.2-1.0); EOSINOPHILS # (AUTO) 0.8 x10^3/uL (0.0-0.2); EOSINOPHILS % (AUTO) 7.9 % (0.9-2.9); HEMATOCRIT 29.8 % (36.0-47.0); HEMOGLOBIN 9.8 g/dL (12.0-16.0); LYMPHOCYTES # (AUTO) 1.9 X10^3/uL (1.3-2.9); MEAN CORPUSCULAR HEMOGLOBIN 27.1 pg (27.0-34.0); MEAN PLATELET VOLUME 7.9 fL (7.4-11.0); MONOCYTES # (AUTO) 0.9 x10^3/uL (0.3-0.8); MONOCYTES % (AUTO) 9.5 % (0.0-13.0); NEUTROPHILS # (AUTO) 6.1 x10^3/uL (2.2-4.8); NEUTROPHILS % (AUTO) 62.7 % (42.0-75.0); PLATELET COUNT 275 X10^3/uL (150.0-450.0); RED BLOOD COUNT 3.63 X10^6/uL (3.5-5.4); RED CELL DISTRIBUTION WIDTH 14.3 % (11.6-16.5); WHITE BLOOD COUNT 9.7 X10^3/uL (3.6-10.0)
[2019-04-01 06:21] LABS: ALANINE AMINOTRANSFERASE 6 Units/L (12-78); ALBUMIN 2.4 g/dL (3.4-5.0); ALKALINE PHOSPHATASE 65 Units/L (46-116); ASPARTATE AMINO TRANSFERASE 14 Units/L (15-37); BLOOD UREA NITROGEN 19 mg/dL (7-18); CALCIUM 8.8 mg/dL (8.5-10.1); CHLORIDE 101 mmol/L (98-107); COR CA(FOR HYPOALB) 10.1 mg/dL (8.5-10.1); COR NA(FOR HYPERGLY) 143 mmol/L (136-145); CREATININE 1.11 mg/dL (0.55-1.02); SODIUM 139 mmol/L (136-145); TOTAL PROTEIN 6.4 g/dL (6.4-8.2); eGFR NON BLACK RACES 52 (>60)
[2019-04-01 06:33] LABS: BAND NEUTROPHILS % 4 % (0-10); PLATELET MORPHOLOGY COMMENT NORMAL (NORMAL)
[2019-04-01 06:34] LABS: HYPOCHROMASIA SLIGHT
[2019-04-01] MEDS: ABILIFY PO SCH (08:44)
[2019-04-01] MEDS: COREG TAB 3.125 MG PO SCH ×2 (08:46→21:34)
[2019-04-01] MEDS: INVANZ INJ 1 GM VIAL 1 GM in NS 100 ML IV + SPIKE MINIBAG* 100 ML IV SCH (08:47)
[2019-04-01] MEDS: DIFLUCAN 200 MG IV PREMIX* 200 MG/100 ML BAG IV SCH (08:47)
[2019-04-01] MEDS: NYSTATIN POWDER TOP SCH ×2 (08:48→21:34)
[2019-04-01] MEDS: SINEMET (PLAIN) 10/100 MG PO SCH ×2 (08:48→21:33)
[2019-04-01] MEDS: SYNTHROID 125 mcg TAB PO SCH (08:49)
[2019-04-01] MEDS: LOVENOX INJ 30 MG SYR SC SCH (08:52)
[2019-04-01] MEDS: VANCOMYCIN HCL 250 MG, VANCOMYCIN HCL 1 G in D5W 250 ML IV 250 ML IV SCH (08:56)
[2019-04-01] MEDS: LASIX IVP SCH (08:56)
[2019-04-01] MEDS: NORCO 10/325 TAB PO PRN ×3 (09:49→21:30)
[2019-04-01] MEDS ORDERED: NIZORAL SHAMPOO EXT SCH (12:00)
[2019-04-01] MEDS: TEMOVATE SOLN TOP SCH ×2 (13:03→21:34)
[2019-04-01] MEDS: MORPHINE SULFATE INJ 2 MG INJ IVP PRN (16:12)
[2019-04-01] MEDS: SNACK - Diabetic Appropriate PO SCH (20:33)
[2019-04-01] MEDS: XANAX PO PRN (21:34)
[2019-04-02] MEDS: NORCO 10/325 TAB PO PRN ×2 (01:15→10:59)
[2019-04-02] MEDS: HumuLIN R SUBCUT PRN ×2 (05:47→11:08)
[2019-04-02 06:02] LABS: BASOPHILS # (AUTO) 0.1 X10^3/uL (0.0-0.1); EOSINOPHILS # (AUTO) 0.8 x10^3/uL (0.0-0.2); EOSINOPHILS % (AUTO) 8.9 % (0.9-2.9); HEMATOCRIT 32.7 % (36.0-47.0); HEMOGLOBIN 10.7 g/dL (12.0-16.0); LYMPHOCYTES # (AUTO) 1.9 X10^3/uL (1.3-2.9); LYMPHOCYTES % (AUTO) 20.1 % (21.0-51.0); MEAN CORPUSCULAR HEMOGLOBIN 27.2 pg (27.0-34.0); MEAN CORPUSCULAR HGB CONC 32.9 g/dL (33.0-35.0); MEAN CORPUSCULAR VOLUME 82.7 fL (80.0-100.0); MEAN PLATELET VOLUME 7.7 fL (7.4-11.0); MONOCYTES # (AUTO) 0.8 x10^3/uL (0.3-0.8); MONOCYTES % (AUTO) 8.7 % (0.0-13.0); NEUTROPHILS # (AUTO) 5.8 x10^3/uL (2.2-4.8); NEUTROPHILS % (AUTO) 61.3 % (42.0-75.0); PLATELET COUNT 335 X10^3/uL (150.0-450.0); RED BLOOD COUNT 3.95 X10^6/uL (3.5-5.4); RED CELL DISTRIBUTION WIDTH 14.1 % (11.6-16.5); WHITE BLOOD COUNT 9.5 X10^3/uL (3.6-10.0)
[2019-04-02 06:20] LABS: ALBUMIN 2.5 g/dL (3.4-5.0); ALKALINE PHOSPHATASE 68 Units/L (46-116); ASPARTATE AMINO TRANSFERASE 17 Units/L (15-37); BLOOD UREA NITROGEN 17 mg/dL (7-18); CALCIUM 9.3 mg/dL (8.5-10.1); CARBON DIOXIDE 28.9 mmol/L (21-32); CHLORIDE 99 mmol/L (98-107); COR CA(FOR HYPOALB) 10.5 mg/dL (8.5-10.1); COR NA(FOR HYPERGLY) 141 mmol/L (136-145); CREATININE 1.08 mg/dL (0.55-1.02); SODIUM 137 mmol/L (136-145); TOTAL PROTEIN 6.7 g/dL (6.4-8.2); eGFR NON BLACK RACES 54 (>60)
[2019-04-02 06:32] LABS: ALANINE AMINOTRANSFERASE < 6 Units/L (12-78)
[2019-04-02 07:14] LABS: BAND NEUTROPHILS % 2 % (0-10)
[2019-04-02 07:15] LABS: PLATELET MORPHOLOGY COMMENT NORMAL (NORMAL)
[2019-04-02] MEDS: SINEMET (PLAIN) 10/100 MG PO SCH (09:50)
[2019-04-02] MEDS: SYNTHROID 125 mcg TAB PO SCH (09:50)
[2019-04-02] MEDS: COREG TAB 3.125 MG PO SCH (09:51)
[2019-04-02] MEDS: ABILIFY PO SCH (09:51)
[2019-04-02] MEDS: LOVENOX INJ 30 MG SYR SC SCH (09:52)
[2019-04-02] MEDS: NYSTATIN POWDER TOP SCH (09:52)
[2019-04-02] MEDS: TEMOVATE SOLN TOP SCH (09:53)
[2019-04-02] MEDS: DIFLUCAN 200 MG IV PREMIX* 200 MG/100 ML BAG IV SCH (09:55)
[2019-04-02] MEDS: LASIX IVP SCH (09:57)
[2019-04-02] MEDS: INVANZ INJ 1 GM VIAL 1 GM in NS 100 ML IV + SPIKE MINIBAG* 100 ML IV SCH (10:59)
[2019-04-02] MEDS: XANAX PO PRN (11:07)
[2019-04-02] MEDS: VANCOMYCIN HCL 250 MG, VANCOMYCIN HCL 1 G in D5W 250 ML IV 250 ML IV SCH (12:08)
[2019-04-02 13:31] VITALS: BP 132/73
[2019-04-03] MEDS ORDERED: PHARMACY COMMENT IV NR (08:30)
== END 2019-04-02 13:30 | DRG 872 ==
LOC: MED/SURG 17:54 → ER 17:54 → OBSVTOIN 20:09 → MED/SURG 20:45
PROVIDERS: ADMIT Internal Medicine; ATTEND Internal Medicine
DX: E11.65 Type 2 diabetes mellitus with hyperglycemia; R19.7 Diarrhea, unspecified; R94.4 Abnormal results of kidney function studies; B96.89 Other specified bacterial agents as the cause of diseases classified elsewhere; L89.159 Pressure ulcer of sacral region, unspecified stage; R94.31 Abnormal electrocardiogram [ECG] [EKG]; M51.36 Other intervertebral disc degeneration, lumbar region; R65.20 Severe sepsis without septic shock; I95.89 Other hypotension; R60.0 Localized edema; I13.0 Hypertensive heart and chronic kidney disease with heart failure and stage 1 through stage 4 chronic kidney disease, or unspecified chronic kidney disease; E78.2 Mixed hyperlipidemia; N18.9 Chronic kidney disease, unspecified; F41.8 Other specified anxiety disorders; N39.0 Urinary tract infection, site not specified; R06.02 Shortness of breath; K21.9 Gastro-esophageal reflux disease without esophagitis; B96.4 Proteus (mirabilis) (morganii) as the cause of diseases classified elsewhere; R62.7 Adult failure to thrive; B96.1 Klebsiella pneumoniae [K. pneumoniae] as the cause of diseases classified elsewhere; E03.8 Other specified hypothyroidism; Z93.3 Colostomy status; B96.29 Other Escherichia coli [E. coli] as the cause of diseases classified elsewhere; R53.1 Weakness; E11.22 Type 2 diabetes mellitus with diabetic chronic kidney disease; J44.1 Chronic obstructive pulmonary disease with (acute) exacerbation; A41.59 Other Gram-negative sepsis; N17.8 Other acute kidney failure
CPT/HCPCS: 36415; 36591; 71010; 71045; 74022; 80053; 80202; 81001; 82270; 82550; 82553; 82565; 83605; 83630; 83735; 84484; 85025; 87040; 87045; 87070; 87075; 87077; 87086; 87088; 87186; 87205; 87328; 87329; 87427; 87449; 87493; 87899; 93005; 94640; 94760; 96365; 97110; 97112; 97162; 97166; 97530; 97535; 99284; A4222; J0400; J0696; J1335; J1450; J1642; J1650; J1815; J1940; J2270; J2405; J3370; J7030; J7050; J7060

== ENCOUNTER 2019-05-04 09:55 | Inpatient (IN) ==
[2019-05-04 10:06] VITALS: BMI 51.7
--- NOTE | 2019-05-04 11:11 | DR.FBACK ---
HPI Time Seen Time Seen by Provider: 05/04/19 10:53 PCP Primary Care Physician: ALAYNA TORIBIO Complaint Chief Complaint Doctor Comments: LOWER BACK PAIN AND WORSENING OF DECUBITUS ULCER IN THAT AREA AND INCREASING PAIN AND REDNESS LOWER EXTREMITIES THAT GOT WORSE TODAY. Chief Complaint:: PT. C/O SEVERE BACK PAIN, ONSET THIS MORNING. HOME HEALTH NURSE WAS AT PT'S HOME THIS MORNING. PT. STATES SHE JUST GOT OUT OF [facility] LAST WEEK FROM HAVING PHYSICAL THERAPY. CELLULITIS TO LEFT LOWER LEG. PT. ALSO STATES SHE HAS A BAD WOUND TO HER SACRAL AREA THAT THE NURSE HAD BEEN PACKING. Reviewed Nurses Notes Review: Yes Source History Provided: Patient and EMS Mode of Arrival Mode of Arrival: EMS Timing Onset of Chief Complaint: 05/04/19 Duration Duration: Constant Duration: Days Location Back Pain Location: Lower and Lumbar (SACRAL) Radiation To: Buttock Severity Severity: Severe Quality Quality: Sharp and Stabbing Context Onset: Spontaneous (INFECTION IN AREAS OF PAIN.) Circumstance: Spontaneous History of: Chronic Back Pain and UTI Modifying Factors Worsened By: Movement Associated Signs and Symptoms Back Pain Symptoms: None Numbness: None Weakness: None PMH PMH Past Medical History: Yes Past Medical History: Angina, Anxiety, Arthritis, Asthma, COPD, Depression, Diabetes, Dyslipidemia, GERD, Headaches, Hypothyroidism and Kidney Stones Past Surgical History: Yes Surgical History: Abdominal Surgery, Bowel Resection, Hysterectomy, Ortho Surgery, Tonsillectomy, Lithotripsy and Other Family History History of Family Medical Conditions: Yes Family Medical History: Diabetes Mellitus and [place] Social History Does patient currently use any type of tobacco product: No Have you used tobacco products in the last 12 months: No Type of Tobacco Use: None Does any household member use tobacco: No Alcohol Use: None Do you use any recreational Drugs:: No Lives With: Alone Lives Where: Home infectious screening In the last 2 months have you had wt loss of >10#?: NO Have you had fever, night sweats or hemotysis?: No Have you traveled outside the country in the last 6 months?: No Isolation: Standard ROS Review of Systems Constitutional: No Symptoms Reported and See HPI Eyes: No Symptoms Reported and See HPI ENTM: No Symptoms Reported and See HPI Respiratoy: No Symptoms Reported and See HPI Cardiovascular: No Symptoms Reported and See HPI Gastrointestinal/Abdominal: No Symptoms Reported and See HPI Genitourinary: No Symptoms Reported and See HPI Neurological: No Symptoms Reported and See HPI Musculoskeletal: No Symptoms Reported and See HPI Integumentary: No Symptoms Reported and See HPI Hematologic/Lymphatic: No Symptoms Reported and See HPI Endocrine: No Symptoms Reported and See HPI Psychiatric: No Symptoms Reported and See HPI All Other Systems: Reviewed and Negative PE Vitals Vital Signs: Temp Pulse Resp BP BP BP Pulse Ox 05/04/19 15:45 76 100 05/04/19 15:43 16 05/04/19 15:30 81 150/62 100 05/04/19 15:15 76 100 05/04/19 15:11 83 152/69 100 05/04/19 15:00 80 98 05/04/19 14:45 72 100 05/04/19 14:41 78 100 05/04/19 14:30 71 100 05/04/19 14:21 72 160/67 100 05/04/19 14:15 70 100 05/04/19 14:01 72 149/64 100 05/04/19 14:00 72 100 05/04/19 13:45 79 100 05/04/19 13:42 78 191/72 100 05/04/19 13:30 80 100 05/04/19 13:29 18 05/04/19 13:20 149/77 05/04/19 13:15 81 100 05/04/19 13:00 83 141/67 100 05/04/19 12:45 80 100 05/04/19 12:40 76 135/59 100 05/04/19 12:30 71 100 05/04/19 12:20 71 116/68 100 05/04/19 12:15 71 100 05/04/19 12:01 72 132/60 100 05/04/19 12:00 71 96 05/04/19 11:45 73 100 05/04/19 11:40 73 140/60 99 05/04/19 11:30 72 100 05/04/19 11:21 73 141/63 100 05/04/19 11:15 70 100 05/04/19 11:00 73 145/67 100 05/04/19 10:45 71 100 05/04/19 10:40 73 147/81 100 05/04/19 10:30 71 100 05/04/19 10:21 73 131/59 100 05/04/19 10:15 75 100 05/04/19 10:06 78 100 05/04/19 10:03 97.9 F 78 22 136/77 100 04/02/19 12:00 132/73 04/01/19 16:00 136/63 General Limitations: No Limitations General Appearance: Alert and In No Apparent Distress Head Head Exam: Normal Inspection Eyes Eye exam: Normal Appearance ENT ENT Exam: Normal Exam Chest Chest Inspection: Normal Inspection Respiratory Respiratory Exam: Normal Lung Sounds Bilat Cardiovascular Cardiovascular Exam: Regular Rate and Normal Rhythm Abdominal Exam Abdominal Exam: Normal Inspection, Normal Bowel Sounds and Soft Genitourinary External Exam: Female: Deferred : Speculum Exam (Female): Deferred : Bimanual Exam (female): Deferred Extremities Extremities Exam: Normal Inspection Back Back Exam: Normal Inspection Neurological Neurological Exam: Alert and Oriented X3 Psychiatric Psychiatric Exam: Normal Affect and Normal Mood Skin Skin Exam: Warm, Dry, Intact and Normal Color ROR Labs Reviewed Laboratory Results Reviewed?: Yes Result Diagrams: 05/05/19 04:49 05/05/19 04:49 Laboratory: 05/04/19 13:32 Sacral Gram Stain - Final WBC 10.8 X10^3/uL (3.6-10.0) H 05/04/19 11:35 RBC 3.74 X10^6/uL (3.5-5.4) 05/04/19 11:35 Hgb 10.2 g/dL (12.0-16.0) L 05/04/19 11:35 Hct 31.3 % (36.0-47.0) L 05/04/19 11:35 MCV 83.8 fL (80.0-100.0) 05/04/19 11:35 MCH 27.3 pg (27.0-34.0) 05/04/19 11:35 MCHC 32.5 g/dL (33.0-35.0) L 05/04/19 11:35 RDW 14.7 % (11.6-16.5) 05/04/19 11:35 Plt Count 366 X10^3/uL (150.0-450.0) 05/04/19 11:35 MPV 7.9 fL (7.4-11.0) 05/04/19 11:35 Neut % (Auto) 76.0 % (42.0-75.0) H 05/04/19 11:35 Lymph % (Auto) 13.9 % (21.0-51.0) L 05/04/19 11:35 [place] % (Auto) 5.3 % (0.0-13.0) 05/04/19 11:35 Eos % (Auto) 4.1 % (0.9-2.9) H 05/04/19 11:35 Baso % (Auto) 0.7 % (0.2-1.0) 05/04/19 11:35 Neut # (Auto) 8.2 x10^3/uL (2.2-4.8) H 05/04/19 11:35 Lymph # (Auto) 1.5 X10^3/uL (1.3-2.9) 05/04/19 11:35 [place] # (Auto) 0.6 x10^3/uL (0.3-0.8) 05/04/19 11:35 Eos # (Auto) 0.4 x10^3/uL (0.0-0.2) H 05/04/19 11:35 Baso # (Auto) 0.1 X10^3/uL (0.0-0.1) 05/04/19 11:35 Absolute Nucleated RBC 0.0 /100WBC 05/04/19 11:35 Sodium 137 mmol/L (136-145) 05/04/19 11:35 Corrected Sodium 144 mmol/L (136-145) 05/04/19 11:35 Potassium 4.2 mmol/L (3.5-5.1) 05/04/19 11:35 Chloride 100 mmol/L (98-107) 05/04/19 11:35 Carbon Dioxide 30.5 mmol/L (21-32) 05/04/19 11:35 BUN 22 mg/dL (7-18) H 05/04/19 11:35 Creatinine 1.58 mg/dL (0.55-1.02) H 05/04/19 11:35 Est GFR (MDRD) Af Amer 42 (>60) L 05/04/19 11:35 Est GFR (MDRD) Non-Af 35 (>60) L 05/04/19 11:35 Glucose 385 mg/dL (65-99) H 05/04/19 11:35 Calcium 9.1 mg/dL (8.5-10.1) 05/04/19 11:35 Corrected Calcium 9.7 mg/dL (8.5-10.1) 05/04/19 11:35 Total Bilirubin 0.20 mg/dL (0.2-1.0) 05/04/19 11:35 AST 10 Units/L (15-37) L 05/04/19 11:35 ALT 12 Units/L (12-78) 05/04/19 11:35 Alkaline Phosphatase 64 Units/L (46-116) 05/04/19 11:35 Total Protein 7.2 g/dL (6.4-8.2) 05/04/19 11:35 Albumin 3.2 g/dL (3.4-5.0) L 05/04/19 11:35 Globulin 4.0 g/dL (2.5-4.5) 05/04/19 11:35 Albumin/Globulin Ratio 0.8 Ratio (1.1-2.1) L 05/04/19 11:35 Specimen Type Catherized urine 05/04/19 13:32 Urine Color Yellow (YELLOW) 05/04/19 13:32 Urine Appearance Cloudy (CLEAR) 05/04/19 13:32 Urine pH 5.0 (5.0 - 8.0) 05/04/19 13:32 Ur Specific [place] 1.010 (1.000-1.030) 05/04/19 13:32 Urine Protein 2+ (NEGATIVE) 05/04/19 13:32 Urine Glucose (UA) 4+ (NEGATIVE) 05/04/19 13:32 Urine Ketones Negative (NEGATIVE) 05/04/19 13:32 Urine Occult Blood 1+ (NEGATIVE) 05/04/19 13:32 Urine Nitrite Positive (NEGATIVE) 05/04/19 13:32 Urine Bilirubin Negative (NEGATIVE) 05/04/19 13:32 Urine Urobilinogen Normal (NORMAL) 05/04/19 13:32 Ur Leukocyte Esterase 3+ (NEGATIVE) 05/04/19 13:32 Urine RBC 3-5 /HPF (0-3) A 05/04/19 13:32 Urine WBC Tntc /HPF (0-5) A 05/04/19 13:32 Ur Squamous Epith Cells Rare /HPF (NEGATIVE) 05/04/19 13:32 Urine Bacteria 2+ /HPF (NEGATIVE) 05/04/19 13:32 Ur Culture Indicated? Yes/culture set up 05/04/19 13:32 XRAY XRAY Interpreted by: Radiologist XRAY Findings: REPORT NOTED AND DISCUSS WITH PATIENT. Opioid Opioid Risk Tool Age (Jose Luis box if 16-45): No History of Preadolescent Sexual Abuse: No Total: 0 Total Score Risk Category: Low Risk Copyright: Tony QUINONES predicting aberrant behaviors Diagnosis Discharge Problem: Cellulitis, Generalized weakness, Sacral decubitus ulcer
[2019-05-04 12:01] LABS: BASOPHILS # (AUTO) 0.1 X10^3/uL (0.0-0.1); BASOPHILS % (AUTO) 0.7 % (0.2-1.0); EOSINOPHILS # (AUTO) 0.4 x10^3/uL (0.0-0.2); EOSINOPHILS % (AUTO) 4.1 % (0.9-2.9); HEMATOCRIT 31.3 % (36.0-47.0); HEMOGLOBIN 10.2 g/dL (12.0-16.0); LYMPHOCYTES # (AUTO) 1.5 X10^3/uL (1.3-2.9); LYMPHOCYTES % (AUTO) 13.9 % (21.0-51.0); MEAN CORPUSCULAR HEMOGLOBIN 27.3 pg (27.0-34.0); MEAN CORPUSCULAR HGB CONC 32.5 g/dL (33.0-35.0); MEAN CORPUSCULAR VOLUME 83.8 fL (80.0-100.0); MEAN PLATELET VOLUME 7.9 fL (7.4-11.0); MONOCYTES # (AUTO) 0.6 x10^3/uL (0.3-0.8); MONOCYTES % (AUTO) 5.3 % (0.0-13.0); NEUTROPHILS # (AUTO) 8.2 x10^3/uL (2.2-4.8); PLATELET COUNT 366 X10^3/uL (150.0-450.0); RED BLOOD COUNT 3.74 X10^6/uL (3.5-5.4); RED CELL DISTRIBUTION WIDTH 14.7 % (11.6-16.5); WHITE BLOOD COUNT 10.8 X10^3/uL (3.6-10.0)
[2019-05-04 12:06] LABS: ALBUMIN 3.2 g/dL (3.4-5.0); CALCIUM 9.1 mg/dL (8.5-10.1); CARBON DIOXIDE 30.5 mmol/L (21-32); COR CA(FOR HYPOALB) 9.7 mg/dL (8.5-10.1); CREATININE 1.58 mg/dL (0.55-1.02); TOTAL PROTEIN 7.2 g/dL (6.4-8.2)
[2019-05-04] MEDS ORDERED: NORCO 10/325 TAB PO ONE (13:03)
[2019-05-04] MEDS ORDERED: NORCO 10/325 TAB ONE (13:04)
[2019-05-04 13:39] LABS: BILIRUBIN,URINE NEGATIVE (NEGATIVE); BLOOD/HEMOGLOBIN,URINE 1+ (NEGATIVE); GLUCOSE, URINE 4+ (NEGATIVE); KETONES,URINE NEGATIVE (NEGATIVE); LEUKOCYTE ESTERASE ,URINE 3+ (NEGATIVE); NITRITES,URINE POSITIVE (NEGATIVE); PROTEIN,URINE 2+ (NEGATIVE); UROBILINOGEN,URINE NORMAL (NORMAL)
[2019-05-04 13:49] LABS: COLOR,URINE YELLOW (YELLOW)
[2019-05-04 13:50] LABS: APPEARANCE,URINE CLOUDY (CLEAR); BACTERIA,URINE 2+ /HPF (NEGATIVE); SQUAMOUS EPITHELIAL CELL,UR RARE /HPF (NEGATIVE)
[2019-05-04] MEDS ORDERED: MORPHINE SULFATE INJ 4 MG IVP ONE (15:38)
[2019-05-04] MEDS ORDERED: ZOFRAN INJ 4 MG VIAL IVP PRN (15:38)
[2019-05-04] MEDS ORDERED: ZOFRAN INJ 4 MG VIAL IVP ONE (15:39)
[2019-05-04] MEDS ORDERED: MORPHINE SULFATE INJ 4 MG ONE (15:40)
[2019-05-04] MEDS ORDERED: ZOFRAN TAB 4 MG PO PRN (16:16)
[2019-05-04] MEDS ORDERED: NYSTATIN POWDER ONE (16:37)
[2019-05-04] MEDS ORDERED: PHARMACY CONSULT - VANCOMYCIN XX SCH (17:00)
[2019-05-04] MEDS ORDERED: NS 500 ML IV 500 ML IV ONE (17:10)
[2019-05-04] MEDS: FORTAZ or TAZICEF VIAL INJ 1 G in NS 100 ML IV + SPIKE MINIBAG* 100 ML IV SCH ×2 (17:18→22:22)
[2019-05-04] MEDS ORDERED: VANCOMYCIN HCL 500 MG, VANCOMYCIN HCL 1 G in D5W 250 ML IV 250 ML IV SCH (18:00)
[2019-05-04] MEDS ORDERED: VANCOMYCIN HCL ONE ×2 (18:12→18:13)
[2019-05-04] MEDS ORDERED: NS 250 ML IV 250 ML IV ONE (18:12)
[2019-05-04] MEDS ORDERED: VANCOMYCIN HCL 1 G in D5W 250 ML IV 250 ML IV SCH (21:00)
[2019-05-04] MEDS: NYSTATIN POWDER TOP SCH (21:42)
[2019-05-04] MEDS: HumuLIN R SC PRN (22:00)
[2019-05-05 00:23] LABS: CKMB % 0.9 % (<4); CREATINE KINASE MB 1.1 ng/mL (0-4.0); TROPONIN I 0.09 ng/mL (0-1.5)
--- NOTE | 2019-05-05 01:15 | RAD ---
Chest, 1 view Indication: Shortness of breath, chest pain Comparison: 03/31/2019 Findings: Cardiac silhouette enlargement and left subclavian approach Port-A-Cath are stable. The lungs are grossly clear without overt edema or focal infiltrates. No significant pleural effusion. Impression: No acute chest process or significant change from prior. Reported By:
[2019-05-05] MEDS: TYLENOL 325 MG TAB PO PRN (05:08)
[2019-05-05] MEDS: FORTAZ or TAZICEF VIAL INJ 1 G in NS 100 ML IV + SPIKE MINIBAG* 100 ML IV SCH ×2 (05:26→22:12)
[2019-05-05 05:39] LABS: BASOPHILS # (AUTO) 0.1 X10^3/uL (0.0-0.1); BASOPHILS % (AUTO) 0.3 % (0.2-1.0); EOSINOPHILS # (AUTO) 0.1 x10^3/uL (0.0-0.2); EOSINOPHILS % (AUTO) 0.4 % (0.9-2.9); HEMATOCRIT 29.9 % (36.0-47.0); HEMOGLOBIN 9.6 g/dL (12.0-16.0); MEAN CORPUSCULAR HEMOGLOBIN 27.2 pg (27.0-34.0); MEAN CORPUSCULAR HGB CONC 32.2 g/dL (33.0-35.0); MEAN CORPUSCULAR VOLUME 84.4 fL (80.0-100.0); MEAN PLATELET VOLUME 8.7 fL (7.4-11.0); MONOCYTES # (AUTO) 1.2 x10^3/uL (0.3-0.8); NEUTROPHILS # (AUTO) 22.5 x10^3/uL (2.2-4.8); NEUTROPHILS % (AUTO) 90.3 % (42.0-75.0); PLATELET COUNT 369 X10^3/uL (150.0-450.0); RED BLOOD COUNT 3.55 X10^6/uL (3.5-5.4); RED CELL DISTRIBUTION WIDTH 14.9 % (11.6-16.5)
[2019-05-05 05:46] LABS: ALBUMIN 2.6 g/dL (3.4-5.0); CALCIUM 8.5 mg/dL (8.5-10.1); CARBON DIOXIDE 29.3 mmol/L (21-32); COR CA(FOR HYPOALB) 9.6 mg/dL (8.5-10.1); CREATININE 1.83 mg/dL (0.55-1.02); TOTAL PROTEIN 6.5 g/dL (6.4-8.2)
[2019-05-05] MEDS: HumuLIN R SC PRN ×4 (05:51→22:20)
[2019-05-05 06:07] LABS: BAND NEUTROPHILS % 4 % (0-10); WHITE BLOOD COUNT 24.9 X10^3/uL (3.6-10.0)
[2019-05-05 06:08] LABS: HYPOCHROMASIA SLIGHT; PLATELET MORPHOLOGY COMMENT NORMAL (NORMAL); STOMATOCYTES PRESENT
--- NOTE | 2019-05-05 08:11 | DR.H&P ---
H&P History & Physical for Day of: H&P Date: 05/05/19 Chief Complaint Chief Complaint: Worsening back pain, decubitus ulcer, and rash Allergies Allergies Allergy/AdvReac Type Severity Reaction Status Date / Time oxycodone Allergy Verified 08/10/18 16:18 History of Present Illness History of Present Illness: Pt is a 64 yo f presenting after having worsening rash on lower extremities bilaterally, red, warm, w/ associated fevers, chills. Reports also a generalized weakness. She was recently in a [facility] and was discharged home last week with Home health. Per ED note, HH nurse noted worsening decubitus ulcer and lower extremity rash. Her initial labs; Wbc 10.8, Hgb 10.2, Cr 1.58, UA:+nitrite, leuk est, wbc and bacteria. CXR negative. She was started on Vancomycin. Past Medical History Past Medical History: Angina, Anxiety, Arthritis, Asthma, COPD, Depression, Diabetes, Dyslipidemia, GERD, Headaches, Hypothyroidism and Kidney Stones Additional Medical History: MORBID OBESITY; VITAMIN B12 DEFICIENCY; LUMBOSACAL RADICULOPATHY Past Surgical History Surgical History: Abdominal Surgery, Bowel Resection, Hysterectomy, Ortho Surgery, Tonsillectomy and Lithotripsy Family History Family Medical History: Diabetes Mellitus and [place] Social History Does patient currently use any type of tobacco product: No Have you used tobacco products in the last 12 months: No Type of Tobacco Use: None Does any household member use tobacco: No Alcohol Use: None Drug Use: None Medications Home Medications: oxycodone Allergy (Verified 08/10/18 16:18) CONTINUE taking the following medications acetaminophen-codeine 1 tab PO TID PRN 05/04/19 [History] levothyroxine 100 mcg PO DAILY 05/04/19 [History] Labs Result Diagrams: 05/05/19 04:49 05/05/19 04:49 Labs: 05/04/19 13:32 Sacral Gram Stain - Final Laboratory WBC 24.9 X10^3/uL (3.6-10.0) H D 05/05/19 04:49 RBC 3.55 X10^6/uL (3.5-5.4) 05/05/19 04:49 Hgb 9.6 g/dL (12.0-16.0) L 05/05/19 04:49 Hct 29.9 % (36.0-47.0) L 05/05/19 04:49 MCV 84.4 fL (80.0-100.0) 05/05/19 04:49 MCH 27.2 pg (27.0-34.0) 05/05/19 04:49 MCHC 32.2 g/dL (33.0-35.0) L 05/05/19 04:49 RDW 14.9 % (11.6-16.5) 05/05/19 04:49 Plt Count 369 X10^3/uL (150.0-450.0) 05/05/19 04:49 Plt Count Comment Adequate (ADEQUATE) 05/05/19 04:49 MPV 8.7 fL (7.4-11.0) 05/05/19 04:49 Neut % (Auto) 90.3 % (42.0-75.0) H 05/05/19 04:49 Lymph % (Auto) 4.0 % (21.0-51.0) L 05/05/19 04:49 [place] % (Auto) 5.0 % (0.0-13.0) 05/05/19 04:49 Eos % (Auto) 0.4 % (0.9-2.9) L 05/05/19 04:49 Baso % (Auto) 0.3 % (0.2-1.0) 05/05/19 04:49 Neut # (Auto) 22.5 x10^3/uL (2.2-4.8) H 05/05/19 04:49 Lymph # (Auto) 1.0 X10^3/uL (1.3-2.9) L 05/05/19 04:49 [place] # (Auto) 1.2 x10^3/uL (0.3-0.8) H 05/05/19 04:49 Eos # (Auto) 0.1 x10^3/uL (0.0-0.2) 05/05/19 04:49 Baso # (Auto) 0.1 X10^3/uL (0.0-0.1) 05/05/19 04:49 Absolute Nucleated RBC 0.0 /100WBC 05/05/19 04:49 Total Counted 100 05/05/19 04:49 Neutrophils % (Manual) 88 % (39-76) H 05/05/19 04:49 Band Neutrophils % 4 % (0-10) 05/05/19 04:49 Lymphocytes % (Manual) 4 % (13-43) L 05/05/19 04:49 Monocytes % (Manual) 4 % (4-9) 05/05/19 04:49 Plt Morphology Comment Normal (NORMAL) 05/05/19 04:49 RBC Morphology Abnormal (NORMAL) A 05/05/19 04:49 Hypochromasia Slight A 05/05/19 04:49 Stomatocytes Present 05/05/19 04:49 Sodium 139 mmol/L (136-145) 05/05/19 04:49 Corrected Sodium 144 mmol/L (136-145) 05/05/19 04:49 Potassium 4.3 mmol/L (3.5-5.1) 05/05/19 04:49 Chloride 102 mmol/L (98-107) 05/05/19 04:49 Carbon Dioxide 29.3 mmol/L (21-32) 05/05/19 04:49 BUN 20 mg/dL (7-18) H 05/05/19 04:49 Creatinine 1.83 mg/dL (0.55-1.02) H 05/05/19 04:49 Est GFR (MDRD) Af Amer 36 (>60) L 05/05/19 04:49 Est GFR (MDRD) Non-Af 29 (>60) L 05/05/19 04:49 Glucose 308 mg/dL (65-99) H 05/05/19 04:49 POC Glucose (mg/dL) 305 mg/dL (65-99) H 05/05/19 05:40 Lactic Acid 2.0 mmol/L (0.4-2.0) 05/04/19 19:25 Calcium 8.5 mg/dL (8.5-10.1) 05/05/19 04:49 Corrected Calcium 9.6 mg/dL (8.5-10.1) 05/05/19 04:49 Total Bilirubin 0.30 mg/dL (0.2-1.0) 05/05/19 04:49 AST 13 Units/L (15-37) L 05/05/19 04:49 ALT 7 Units/L (12-78) L 05/05/19 04:49 Alkaline Phosphatase 56 Units/L (46-116) 05/05/19 04:49 Creatine Kinase 127 Units/L (26-192) 05/04/19 23:55 CK-MB (CK-2) 1.1 ng/mL (0-4.0) 05/04/19 23:55 CK/CKMB % Calc 0.9 % (<4) 05/04/19 23:55 Troponin I 0.09 ng/mL (0-1.5) 05/04/19 23:55 Total Protein 6.5 g/dL (6.4-8.2) 05/05/19 04:49 Albumin 2.6 g/dL (3.4-5.0) L 05/05/19 04:49 Globulin 3.9 g/dL (2.5-4.5) 05/05/19 04:49 Albumin/Globulin Ratio 0.7 Ratio (1.1-2.1) L 05/05/19 04:49 Specimen Type Catherized urine 05/04/19 13:32 Urine Color Yellow (YELLOW) 05/04/19 13:32 Urine Appearance Cloudy (CLEAR) 05/04/19 13:32 Urine pH 5.0 (5.0 - 8.0) 05/04/19 13:32 Ur Specific [place] 1.010 (1.000-1.030) 05/04/19 13:32 Urine Protein 2+ (NEGATIVE) 05/04/19 13:32 Urine Glucose (UA) 4+ (NEGATIVE) 05/04/19 13:32 Urine Ketones Negative (NEGATIVE) 05/04/19 13:32 Urine Occult Blood 1+ (NEGATIVE) 05/04/19 13:32 Urine Nitrite Positive (NEGATIVE) 05/04/19 13:32 Urine Bilirubin Negative (NEGATIVE) 05/04/19 13:32 Urine Urobilinogen Normal (NORMAL) 05/04/19 13:32 Ur Leukocyte Esterase 3+ (NEGATIVE) 05/04/19 13:32 Urine RBC 3-5 /HPF (0-3) A 05/04/19 13:32 Urine WBC Tntc /HPF (0-5) A 05/04/19 13:32 Ur Squamous Epith Cells Rare /HPF (NEGATIVE) 05/04/19 13:32 Urine Bacteria 2+ /HPF (NEGATIVE) 05/04/19 13:32 Ur Culture Indicated? Yes/culture set up 05/04/19 13:32 Review of Systems Constitutional: Fever and Chills Eyes: No Symptoms Reported ENT: No Symptoms Reported Respiratory: No Symptoms Reported Cardiovascular: No Symptoms Reported Gastrointestinal: No Symptoms Reported Genitourinary: No Symptoms Reported Musculoskeletal: Back Pain Skin: No Symptoms Reported Neurological: Weakness Physical Exam Vital Signs: Temperature 98.3 F Pulse Rate [Left Brachial] 87 Pulse Rate 76 Respiratory Rate 15 Blood Pressure [Left Arm] 115/58 Blood Pressure [Right Arm] 96/51 Blood Pressure 150/62 O2 Sat by Pulse Oximetry 92 Oriented: Normal Eyes: Normal Ear: Normal Nose: Normal Respiratory: Clear Throughout Cardiovascular: Normal : Normal Auscultation: Bowel Sounds: Normal Palpation: Normal Tenderness: Normal Skin: Rash (lower extremities bilaterally) and Red Musculoskeletal: Normal Psychiatric: Normal Speech Pattern: Clear Assessment/Plan (1) Sepsis: Qualifiers: Sepsis acute organ dysfunction status: unspecified Sepsis type: sepsis due to unspecified organism Qualified Code(s): A41.9 - Sepsis, unspecified organism Status: Acute Plan: Pt w/ leukocytosis WBC:10>24, last night blood pressure 76/50, temperature 101.5F, and multiple possible sources of infection, including urinary, decubitus ulcer, as well as co-infection of cellulitis. Responded to IVF, Abx(05/05/19):Vancomycin + Fortaz -F/u:BloodCx, UrineCx (2) Cellulitis: Qualifiers: Laterality: unspecified laterality Site of cellulitis: extremity Site of cellulitis of extremity: lower extremity Qualified Code(s): L03.119 - Cellulitis of unspecified part of limb Status: Acute Plan: IV Vancomycin (3) Sacral decubitus ulcer: Qualifiers: Pressure injury stage: stage 3 Qualified Code(s): L89.153 - Pressure ulcer of sacral region, stage 3 Status: Acute Plan: Consult General Surgery for evaluation (4) Acute renal failure: Qualifiers: Acute renal failure type: unspecified Qualified Code(s): N17.9 - Acute kidney failure, unspecified Status: Acute Plan: Continue IVF hydration Cr:1.58>1.83 (5) Generalized weakness: Status: Acute
[2019-05-05] MEDS: NYSTATIN POWDER TOP SCH ×3 (10:48→22:19)
[2019-05-05] MEDS: BENTYL CAP 10 MG PO SCH ×3 (13:09→22:16)
[2019-05-05] MEDS: NS 1000 ML 1,000 ML IV SCH (13:58)
[2019-05-05] MEDS: MORPHINE SULFATE INJ 4 MG IVP PRN ×2 (16:53→22:45)
[2019-05-05] MEDS ORDERED: VANCOMYCIN HCL ONE ×2 (17:36→17:37)
[2019-05-05] MEDS ORDERED: D5W 250 ML IV 250 ML IV ONE (17:37)
[2019-05-05] MEDS ORDERED: VANCOMYCIN HCL 500 MG, VANCOMYCIN HCL 1 G in D5W 250 ML IV 250 ML IV SCH (18:00)
[2019-05-05] MEDS: SNACK - Diabetic Appropriate PO SCH (21:15)
[2019-05-05] MEDS: ZOCOR TAB 40 MG PO SCH (22:15)
[2019-05-05] MEDS: LEVEMIR SC SCH (22:15)
[2019-05-05] MEDS: SINEMET (PLAIN) 10/100 MG PO SCH (22:16)
[2019-05-05] MEDS: COREG TAB 3.125 MG PO SCH (22:33)
[2019-05-05] MEDS: CYMBALTA PO SCH (22:33)
[2019-05-05] MEDS: PEPCID TAB 20 MG PO SCH (22:33)
[2019-05-06] MEDS: NS 1000 ML 1,000 ML IV SCH ×3 (02:09→18:39)
[2019-05-06 05:27] LABS: CALCIUM 8.3 mg/dL (8.5-10.1); CARBON DIOXIDE 31.7 mmol/L (21-32); CREATININE 1.31 mg/dL (0.55-1.02)
[2019-05-06 05:33] LABS: BASOPHILS # (AUTO) 0.1 X10^3/uL (0.0-0.1); BASOPHILS % (AUTO) 0.6 % (0.2-1.0); EOSINOPHILS # (AUTO) 0.6 x10^3/uL (0.0-0.2); EOSINOPHILS % (AUTO) 4.6 % (0.9-2.9); HEMATOCRIT 29.2 % (36.0-47.0); HEMOGLOBIN 9.4 g/dL (12.0-16.0); LYMPHOCYTES # (AUTO) 1.2 X10^3/uL (1.3-2.9); LYMPHOCYTES % (AUTO) 9.9 % (21.0-51.0); MEAN CORPUSCULAR VOLUME 84.4 fL (80.0-100.0); MONOCYTES % (AUTO) 8.4 % (0.0-13.0); NEUTROPHILS # (AUTO) 9.3 x10^3/uL (2.2-4.8); NEUTROPHILS % (AUTO) 76.5 % (42.0-75.0); PLATELET COUNT 311 X10^3/uL (150.0-450.0); RED BLOOD COUNT 3.46 X10^6/uL (3.5-5.4); RED CELL DISTRIBUTION WIDTH 14.9 % (11.6-16.5)
[2019-05-06 06:02] LABS: WHITE BLOOD COUNT 12.1 X10^3/uL (3.6-10.0)
[2019-05-06] MEDS: HumuLIN R SC PRN ×3 (06:33→17:01)
[2019-05-06] MEDS ORDERED: POTASSIUM CHL 60 MEQ/NS 0.45% 500 ML IV PRN (06:43)
[2019-05-06] MEDS ORDERED: K-RIDER 10 MEQ/NS 100 ML 10 MEQ/100 ML BAG IV PRN (06:43)
[2019-05-06] MEDS ORDERED: K-DUR TAB 20 MEQ PO PRN (06:43)
[2019-05-06] MEDS ORDERED: KLOR-CON PO PRN (06:43)
[2019-05-06] MEDS ORDERED: POTASSIUM CHLORIDE LIQ 20 MEQ UDC PO PRN (06:43)
[2019-05-06] MEDS ORDERED: POTASSIUM CHL 40 MEQ/NS 0.45% 500 ML IV PRN (06:43)
[2019-05-06] MEDS ORDERED: MICRO K EXTEN CAP 10 MEQ PO PRN (06:43)
[2019-05-06] MEDS ORDERED: VANCOMYCIN HCL ONE ×2 (09:14→09:15)
[2019-05-06] MEDS ORDERED: D5W 250 ML IV 250 ML IV ONE (09:15)
--- NOTE | 2019-05-06 09:42 | PCM.PROG ---
Progress Note Progress Note for Day of Date of Exam: 05/06/19 Subjective Subjective: Pt is a 64 yo f presenting after having worsening rash on lower extremities bilaterally, red, warm, w/ associated fevers, chills. Reports also a generalized weakness. She was recently in a SNF [facility] and was discharged home last week with Home health. Per ED note, HH nurse noted worsening decubitus ulcer and lower extremity rash. Her initial labs; Wbc 10.8, Hgb 10.2, Cr 1.58, UA:+nitrite, leuk est, wbc and bacteria. CXR negative. She was started on Vancomycin+Fortaz. - Pt reports feeling better this morning. Reports redness in her legs have improved. She is tolerating po, denies fevers, chills, or any acute events overnight. Past Medical Family Social History Past Med/Fam/Surg Hx: No changes since H&P Allergies: Allergies oxycodone Allergy (Verified 08/10/18 16:18) Review of Systems ROS: No change since H&P Vital Signs and I&O's Vital Signs: Temperature 98.5 F Pulse Rate [Left Brachial] 77 Pulse Rate 76 Respiratory Rate 20 Blood Pressure [Left Arm] 115/58 Blood Pressure [Right Arm] 117/58 Blood Pressure 150/62 O2 Sat by Pulse Oximetry 97 Intake and Output: Intake & Output 05/03/19 05/04/19 05/05/19 05/06/19 23:59 23:59 23:59 23:59 Intake Total 700 / 700 1475 / 1475 220 / 220 Output Total 825 / 825 1200 / 1200 1025 / 1025 Balance -125 / -125 275 / 275 -805 / -805 Physical Exam Oriented: Normal Eyes: Normal Ear: Normal Nose: Normal Cardiovascular: Normal : Normal Auscultation: Bowel Sounds: Normal Tenderness: Normal Skin: Rash (lower extremities bilaterally) and Red Musculoskeletal: Normal Psychiatric: Normal Speech Pattern: Clear Laboratory and Diagnostics Result Diagrams: 05/06/19 05:00 05/06/19 05:00 Labs: 05/04/19 11:43 Blood Blood Culture - Preliminary 05/04/19 11:35 Blood Blood Culture - Preliminary 05/04/19 13:32 Urine,Catheterized Urine Culture - Preliminary 05/04/19 13:32 Sacral Gram Stain - Final 05/04/19 13:32 Sacral Wound Culture - Preliminary Laboratory WBC 12.1 X10^3/uL (3.6-10.0) H D 05/06/19 05:00 RBC 3.46 X10^6/uL (3.5-5.4) L 05/06/19 05:00 Hgb 9.4 g/dL (12.0-16.0) L 05/06/19 05:00 Hct 29.2 % (36.0-47.0) L 05/06/19 05:00 MCV 84.4 fL (80.0-100.0) 05/06/19 05:00 MCH 27.0 pg (27.0-34.0) 05/06/19 05:00 MCHC 32.0 g/dL (33.0-35.0) L 05/06/19 05:00 RDW 14.9 % (11.6-16.5) 05/06/19 05:00 Plt Count 311 X10^3/uL (150.0-450.0) 05/06/19 05:00 Plt Count Comment Adequate (ADEQUATE) 05/05/19 04:49 MPV 8.0 fL (7.4-11.0) 05/06/19 05:00 Neut % (Auto) 76.5 % (42.0-75.0) H 05/06/19 05:00 Lymph % (Auto) 9.9 % (21.0-51.0) L 05/06/19 05:00 [place] % (Auto) 8.4 % (0.0-13.0) 05/06/19 05:00 Eos % (Auto) 4.6 % (0.9-2.9) H 05/06/19 05:00 Baso % (Auto) 0.6 % (0.2-1.0) 05/06/19 05:00 Neut # (Auto) 9.3 x10^3/uL (2.2-4.8) H 05/06/19 05:00 Lymph # (Auto) 1.2 X10^3/uL (1.3-2.9) L 05/06/19 05:00 [place] # (Auto) 1.0 x10^3/uL (0.3-0.8) H 05/06/19 05:00 Eos # (Auto) 0.6 x10^3/uL (0.0-0.2) H 05/06/19 05:00 Baso # (Auto) 0.1 X10^3/uL (0.0-0.1) 05/06/19 05:00 Absolute Nucleated RBC 0.1 /100WBC 05/06/19 05:00 Total Counted 100 05/05/19 04:49 Neutrophils % (Manual) 88 % (39-76) H 05/05/19 04:49 Band Neutrophils % 4 % (0-10) 05/05/19 04:49 Lymphocytes % (Manual) 4 % (13-43) L 05/05/19 04:49 Monocytes % (Manual) 4 % (4-9) 05/05/19 04:49 Plt Morphology Comment Normal (NORMAL) 05/05/19 04:49 RBC Morphology Abnormal (NORMAL) A 05/05/19 04:49 Hypochromasia Slight A 05/05/19 04:49 Stomatocytes Present 05/05/19 04:49 Sodium 140 mmol/L (136-145) 05/06/19 05:00 Corrected Sodium 142 mmol/L (136-145) 05/06/19 05:00 Potassium 3.7 mmol/L (3.5-5.1) 05/06/19 05:00 Chloride 102 mmol/L (98-107) 05/06/19 05:00 Carbon Dioxide 31.7 mmol/L (21-32) 05/06/19 05:00 BUN 16 mg/dL (7-18) 05/06/19 05:00 Creatinine 1.31 mg/dL (0.55-1.02) H 05/06/19 05:00 Est GFR (MDRD) Af Amer 52 (>60) L 05/06/19 05:00 Est GFR (MDRD) Non-Af 43 (>60) L 05/06/19 05:00 Glucose 190 mg/dL (65-99) H 05/06/19 05:00 POC Glucose (mg/dL) 182 mg/dL (65-99) H 05/06/19 05:33 Lactic Acid 1.1 mmol/L (0.4-2.0) 05/05/19 11:22 Calcium 8.3 mg/dL (8.5-10.1) L 05/06/19 05:00 Corrected Calcium 9.6 mg/dL (8.5-10.1) 05/05/19 04:49 Magnesium 1.9 mg/dL (1.7-2.9) 05/06/19 05:00 Total Bilirubin 0.30 mg/dL (0.2-1.0) 05/05/19 04:49 AST 13 Units/L (15-37) L 05/05/19 04:49 ALT 7 Units/L (12-78) L 05/05/19 04:49 Alkaline Phosphatase 56 Units/L (46-116) 05/05/19 04:49 Creatine Kinase 127 Units/L (26-192) 05/04/19 23:55 CK-MB (CK-2) 1.1 ng/mL (0-4.0) 05/04/19 23:55 CK/CKMB % Calc 0.9 % (<4) 05/04/19 23:55 Troponin I 0.09 ng/mL (0-1.5) 05/04/19 23:55 Total Protein 6.5 g/dL (6.4-8.2) 05/05/19 04:49 Albumin 2.6 g/dL (3.4-5.0) L 05/05/19 04:49 Globulin 3.9 g/dL (2.5-4.5) 05/05/19 04:49 Albumin/Globulin Ratio 0.7 Ratio (1.1-2.1) L 05/05/19 04:49 Specimen Type Catherized urine 05/04/19 13:32 Urine Color Yellow (YELLOW) 05/04/19 13:32 Urine Appearance Cloudy (CLEAR) 05/04/19 13:32 Urine pH 5.0 (5.0 - 8.0) 05/04/19 13:32 Ur Specific [place] 1.010 (1.000-1.030) 05/04/19 13:32 Urine Protein 2+ (NEGATIVE) 05/04/19 13:32 Urine Glucose (UA) 4+ (NEGATIVE) 05/04/19 13:32 Urine Ketones Negative (NEGATIVE) 05/04/19 13:32 Urine Occult Blood 1+ (NEGATIVE) 05/04/19 13:32 Urine Nitrite Positive (NEGATIVE) 05/04/19 13:32 Urine Bilirubin Negative (NEGATIVE) 05/04/19 13:32 Urine Urobilinogen Normal (NORMAL) 05/04/19 13:32 Ur Leukocyte Esterase 3+ (NEGATIVE) 05/04/19 13:32 Urine RBC 3-5 /HPF (0-3) A 05/04/19 13:32 Urine WBC Tntc /HPF (0-5) A 05/04/19 13:32 Ur Squamous Epith Cells Rare /HPF (NEGATIVE) 05/04/19 13:32 Urine Bacteria 2+ /HPF (NEGATIVE) 05/04/19 13:32 Ur Culture Indicated? Yes/culture set up 05/04/19 13:32 ST: Ischemia Plan (1) Sepsis: Status: Acute Qualifiers: Sepsis acute organ dysfunction status: unspecified Sepsis type: sepsis due to unspecified organism Qualified Code(s): A41.9 - Sepsis, unspecified organism Plan: -Pt w/ improving leukocytosis WBC:10>24>12.1, BP has been stable, afebrile overnight. -WoundCx and UrineCx:+gram negative rods. BloodCx:NGTD -IVF, Abx(05/05/19):Vancomycin + Fortaz -Continue to monitor (2) Cellulitis: Status: Acute Qualifiers: Laterality: unspecified laterality Site of cellulitis: extremity Site of cellulitis of extremity: lower extremity Qualified Code(s): L03.119 - Cellulitis of unspecified part of limb Plan: -Significant improvement, continue abx -IV Vancomycin (3) Sacral decubitus ulcer: Status: Acute Qualifiers: Pressure injury stage: stage 3 Qualified Code(s): L89.153 - Pressure ulcer of sacral region, stage 3 Plan: -Consult General Surgery for evaluation -F/u recs (4) Acute renal failure: Status: Acute Qualifiers: Acute renal failure type: unspecified Qualified Code(s): N17.9 - Acute kidney failure, unspecified Plan: -Continue IVF hydration -Cr:1.58>1.83>1.31 (5) Generalized weakness: Status: Acute
[2019-05-06] MEDS: FORTAZ or TAZICEF VIAL INJ 1 G in NS 100 ML IV + SPIKE MINIBAG* 100 ML IV SCH (09:58)
[2019-05-06] MEDS: BENTYL CAP 10 MG PO SCH ×4 (09:59→21:44)
[2019-05-06] MEDS: LEVEMIR SC SCH ×2 (10:02→21:44)
[2019-05-06] MEDS: COREG TAB 3.125 MG PO SCH ×2 (10:03→21:44)
[2019-05-06] MEDS: SYNTHROID 100 mcg TAB PO SCH (10:03)
[2019-05-06] MEDS: NYSTATIN POWDER TOP SCH ×2 (10:04→21:44)
[2019-05-06] MEDS: SINEMET (PLAIN) 10/100 MG PO SCH ×2 (10:04→21:44)
[2019-05-06] MEDS: MORPHINE SULFATE INJ 4 MG IVP PRN ×2 (10:16→22:09)
[2019-05-06] MEDS ORDERED: MERREM VIAL ONE ×2 (13:15→21:48)
[2019-05-06] MEDS ORDERED: NS 100 ML IV 100 ML IV ONE (13:15)
[2019-05-06] MEDS: ABILIFY PO SCH (13:40)
[2019-05-06] MEDS: PEPCID TAB 20 MG PO SCH (13:41)
[2019-05-06] MEDS: MERREM VIAL 1 G in NS 100 ML IV + SPIKE MINIBAG* 100 ML IV SCH ×2 (13:42→21:44)
[2019-05-06] MEDS: PATIENT'S HOME MEDICATION (Dexlansoprazole [Dexilant] 60 MG) PO SCH (16:35)
[2019-05-06] MEDS: SNACK - Diabetic Appropriate PO SCH (20:00)
[2019-05-06] MEDS: TRICOR TAB 160 MG PO SCH (21:44)
[2019-05-06] MEDS: CYMBALTA PO SCH (21:44)
[2019-05-06] MEDS: ZOCOR TAB 40 MG PO SCH (21:44)
[2019-05-06] MEDS ORDERED: NS 100 ML IV + SPIKE MINIBAG* 100 ML IV ONE (21:49)
[2019-05-07 05:15] LABS: BASOPHILS # (AUTO) 0.1 X10^3/uL (0.0-0.1); BASOPHILS % (AUTO) 0.5 % (0.2-1.0); EOSINOPHILS # (AUTO) 0.4 x10^3/uL (0.0-0.2); EOSINOPHILS % (AUTO) 3.5 % (0.9-2.9); LYMPHOCYTES # (AUTO) 1.2 X10^3/uL (1.3-2.9); MEAN CORPUSCULAR HEMOGLOBIN 26.5 pg (27.0-34.0); MEAN CORPUSCULAR HGB CONC 32.1 g/dL (33.0-35.0); MEAN CORPUSCULAR VOLUME 82.5 fL (80.0-100.0); MEAN PLATELET VOLUME 7.8 fL (7.4-11.0); MONOCYTES # (AUTO) 1.1 x10^3/uL (0.3-0.8); MONOCYTES % (AUTO) 8.8 % (0.0-13.0); NEUTROPHILS # (AUTO) 9.6 x10^3/uL (2.2-4.8); NEUTROPHILS % (AUTO) 77.2 % (42.0-75.0); PLATELET COUNT 324 X10^3/uL (150.0-450.0); RED BLOOD COUNT 3.76 X10^6/uL (3.5-5.4); RED CELL DISTRIBUTION WIDTH 14.6 % (11.6-16.5); WHITE BLOOD COUNT 12.4 X10^3/uL (3.6-10.0)
[2019-05-07 05:28] LABS: BLOOD UREA NITROGEN 12 mg/dL (7-18); CALCIUM 8.5 mg/dL (8.5-10.1); CARBON DIOXIDE 27.3 mmol/L (21-32); CHLORIDE 100 mmol/L (98-107); COR NA(FOR HYPERGLY) 136 mmol/L (136-145); CREATININE 1.08 mg/dL (0.55-1.02); SODIUM 135 mmol/L (136-145); eGFR NON BLACK RACES 54 (>60)
[2019-05-07] MEDS ORDERED: NS 100 ML IV 100 ML IV ONE ×3 (05:49→20:13)
[2019-05-07] MEDS ORDERED: MERREM VIAL ONE ×3 (05:49→20:13)
[2019-05-07] MEDS: MERREM VIAL 1 G in NS 100 ML IV + SPIKE MINIBAG* 100 ML IV SCH ×3 (06:10→21:16)
[2019-05-07] MEDS: NS 1000 ML 1,000 ML IV SCH ×2 (06:36→22:48)
[2019-05-07] MEDS ORDERED: PHARMACY COMMENT IV NR (08:30)
[2019-05-07] MEDS: MORPHINE SULFATE INJ 4 MG IVP PRN ×3 (08:36→21:14)
[2019-05-07] MEDS: XANAX PO PRN (08:38)
[2019-05-07] MEDS: PEPCID TAB 20 MG PO SCH (08:38)
[2019-05-07] MEDS: SYNTHROID 100 mcg TAB PO SCH (08:38)
[2019-05-07] MEDS: COREG TAB 3.125 MG PO SCH ×2 (08:38→21:15)
[2019-05-07] MEDS: SINEMET (PLAIN) 10/100 MG PO SCH ×2 (08:38→21:15)
[2019-05-07] MEDS: BENTYL CAP 10 MG PO SCH ×4 (08:39→21:15)
[2019-05-07] MEDS: NYSTATIN POWDER TOP SCH ×2 (08:45→22:49)
[2019-05-07] MEDS: LEVEMIR SC SCH ×2 (08:52→21:21)
[2019-05-07] MEDS: PATIENT'S HOME MEDICATION (Dexlansoprazole [Dexilant] 60 MG) PO SCH (09:00)
--- NOTE | 2019-05-07 09:44 | PCM.PROG ---
Progress Note Progress Note for Day of Date of Exam: 05/07/19 Subjective Subjective: Pt is a 64 yo f presenting after having worsening rash on lower extremities bilaterally, red, warm, w/ associated fevers, chills. Reports also a generalized weakness. She was recently in a SNF [facility] and was discharged home last week with Home health. Per ED note, HH nurse noted worsening decubitus ulcer and lower extremity rash. Her initial labs; Wbc 10.8, Hgb 10.2, Cr 1.58, UA:+nitrite, leuk est, wbc and bacteria. CXR negative. She was started on Vancomycin+Fortaz. UrineCx:ESBL Enterobacter cloacae, SacralCx:Proteus mirabilis. IV abx changed to Meropenem(05/06/19). - Pt doing well this am. She reports that her redness at the bottom of her legs has improved. She is tolerating po, denies fevers, chills, or any acute events overnight. Past Medical Family Social History Past Med/Fam/Surg Hx: No changes since H&P Allergies: Allergies oxycodone Allergy (Verified 08/10/18 16:18) Review of Systems ROS: No change since H&P Vital Signs and I&O's Vital Signs: Temperature 98.9 F Pulse Rate [Left Brachial] 91 Pulse Rate 76 Respiratory Rate 20 Blood Pressure [Left Arm] 115/58 Blood Pressure [Right Arm] 133/66 Blood Pressure 150/62 O2 Sat by Pulse Oximetry 98 Intake and Output: Intake & Output 05/04/19 05/05/19 05/06/19 05/07/19 23:59 23:59 23:59 23:59 Intake Total 700 / 700 1475 / 1475 1900 / 1900 200 / 200 Output Total 825 / 825 1200 / 1200 3800 / 3800 1375 / 1375 Balance -125 / -125 275 / 275 -1900 / -1900 -1175 / -1175 Physical Exam Oriented: Normal Eyes: Normal Ear: Normal Nose: Normal Cardiovascular: Normal : Normal Auscultation: Bowel Sounds: Normal Tenderness: Normal Skin: Red (improvement ) Musculoskeletal: Normal Psychiatric: Normal Speech Pattern: Clear Laboratory and Diagnostics Result Diagrams: 05/07/19 04:43 05/07/19 04:43 Labs: 05/04/19 13:32 Urine,Catheterized Urine Culture - Final Enterobacter Cloacae 05/04/19 13:32 Sacral Gram Stain - Final 05/04/19 13:32 Sacral Wound Culture - Final Proteus Mirabilis 05/04/19 11:43 Blood Blood Culture - Preliminary 05/04/19 11:35 Blood Blood Culture - Preliminary Laboratory WBC 12.4 X10^3/uL (3.6-10.0) H 05/07/19 04:43 RBC 3.76 X10^6/uL (3.5-5.4) 05/07/19 04:43 Hgb 10.0 g/dL (12.0-16.0) L 05/07/19 04:43 Hct 31.0 % (36.0-47.0) L 05/07/19 04:43 MCV 82.5 fL (80.0-100.0) 05/07/19 04:43 MCH 26.5 pg (27.0-34.0) L 05/07/19 04:43 MCHC 32.1 g/dL (33.0-35.0) L 05/07/19 04:43 RDW 14.6 % (11.6-16.5) 05/07/19 04:43 Plt Count 324 X10^3/uL (150.0-450.0) 05/07/19 04:43 Plt Count Comment Adequate (ADEQUATE) 05/05/19 04:49 MPV 7.8 fL (7.4-11.0) 05/07/19 04:43 Neut % (Auto) 77.2 % (42.0-75.0) H 05/07/19 04:43 Lymph % (Auto) 10.0 % (21.0-51.0) L 05/07/19 04:43 [place] % (Auto) 8.8 % (0.0-13.0) 05/07/19 04:43 Eos % (Auto) 3.5 % (0.9-2.9) H 05/07/19 04:43 Baso % (Auto) 0.5 % (0.2-1.0) 05/07/19 04:43 Neut # (Auto) 9.6 x10^3/uL (2.2-4.8) H 05/07/19 04:43 Lymph # (Auto) 1.2 X10^3/uL (1.3-2.9) L 05/07/19 04:43 [place] # (Auto) 1.1 x10^3/uL (0.3-0.8) H 05/07/19 04:43 Eos # (Auto) 0.4 x10^3/uL (0.0-0.2) H 05/07/19 04:43 Baso # (Auto) 0.1 X10^3/uL (0.0-0.1) 05/07/19 04:43 Absolute Nucleated RBC 0.0 /100WBC 05/07/19 04:43 Total Counted 100 05/05/19 04:49 Neutrophils % (Manual) 88 % (39-76) H 05/05/19 04:49 Band Neutrophils % 4 % (0-10) 05/05/19 04:49 Lymphocytes % (Manual) 4 % (13-43) L 05/05/19 04:49 Monocytes % (Manual) 4 % (4-9) 05/05/19 04:49 Plt Morphology Comment Normal (NORMAL) 05/05/19 04:49 RBC Morphology Abnormal (NORMAL) A 05/05/19 04:49 Hypochromasia Slight A 05/05/19 04:49 Stomatocytes Present 05/05/19 04:49 Sodium 135 mmol/L (136-145) L 05/07/19 04:43 Corrected Sodium 136 mmol/L (136-145) 05/07/19 04:43 Potassium 4.2 mmol/L (3.5-5.1) 05/07/19 04:43 Chloride 100 mmol/L (98-107) 05/07/19 04:43 Carbon Dioxide 27.3 mmol/L (21-32) 05/07/19 04:43 BUN 12 mg/dL (7-18) 05/07/19 04:43 Creatinine 1.08 mg/dL (0.55-1.02) H 05/07/19 04:43 Est GFR (MDRD) Af Amer > 60 (>60) 05/07/19 04:43 Est GFR (MDRD) Non-Af 54 (>60) L 05/07/19 04:43 Glucose 153 mg/dL (65-99) H 05/07/19 04:43 POC Glucose (mg/dL) 159 mg/dL (65-99) H 05/07/19 05:31 Lactic Acid 1.1 mmol/L (0.4-2.0) 05/05/19 11:22 Calcium 8.5 mg/dL (8.5-10.1) 05/07/19 04:43 Corrected Calcium 9.6 mg/dL (8.5-10.1) 05/05/19 04:49 Magnesium 1.9 mg/dL (1.7-2.9) 05/06/19 05:00 Total Bilirubin 0.30 mg/dL (0.2-1.0) 05/05/19 04:49 AST 13 Units/L (15-37) L 05/05/19 04:49 ALT 7 Units/L (12-78) L 05/05/19 04:49 Alkaline Phosphatase 56 Units/L (46-116) 05/05/19 04:49 Creatine Kinase 127 Units/L (26-192) 05/04/19 23:55 CK-MB (CK-2) 1.1 ng/mL (0-4.0) 05/04/19 23:55 CK/CKMB % Calc 0.9 % (<4) 05/04/19 23:55 Troponin I 0.09 ng/mL (0-1.5) 05/04/19 23:55 Total Protein 6.5 g/dL (6.4-8.2) 05/05/19 04:49 Albumin 2.6 g/dL (3.4-5.0) L 05/05/19 04:49 Globulin 3.9 g/dL (2.5-4.5) 05/05/19 04:49 Albumin/Globulin Ratio 0.7 Ratio (1.1-2.1) L 05/05/19 04:49 Specimen Type Catherized urine 05/04/19 13:32 Urine Color Yellow (YELLOW) 05/04/19 13:32 Urine Appearance Cloudy (CLEAR) 05/04/19 13:32 Urine pH 5.0 (5.0 - 8.0) 05/04/19 13:32 Ur Specific [place] 1.010 (1.000-1.030) 05/04/19 13:32 Urine Protein 2+ (NEGATIVE) 05/04/19 13:32 Urine Glucose (UA) 4+ (NEGATIVE) 05/04/19 13:32 Urine Ketones Negative (NEGATIVE) 05/04/19 13:32 Urine Occult Blood 1+ (NEGATIVE) 05/04/19 13:32 Urine Nitrite Positive (NEGATIVE) 05/04/19 13:32 Urine Bilirubin Negative (NEGATIVE) 05/04/19 13:32 Urine Urobilinogen Normal (NORMAL) 05/04/19 13:32 Ur Leukocyte Esterase 3+ (NEGATIVE) 05/04/19 13:32 Urine RBC 3-5 /HPF (0-3) A 05/04/19 13:32 Urine WBC Tntc /HPF (0-5) A 05/04/19 13:32 Ur Squamous Epith Cells Rare /HPF (NEGATIVE) 05/04/19 13:32 Urine Bacteria 2+ /HPF (NEGATIVE) 05/04/19 13:32 Ur Culture Indicated? Yes/culture set up 05/04/19 13:32 Plan (1) Sepsis: Status: Acute Qualifiers: Sepsis acute organ dysfunction status: unspecified Sepsis type: sepsis due to unspecified organism Qualified Code(s): A41.9 - Sepsis, unspecified organism Plan: -Pt w/ improving leukocytosis WBC:24>12.1>12.4, Afebrile overnight. -UrineCx:ESBL Enterobacter cloacae, SacralCx:Proteus mirabilis. BloodCx:NGTD -Abx(05/05/19):Vancomycin + Fortaz >changed to Meropenem(05/06/19) will need tx x1 week. -Continue to monitor (2) Cellulitis: Status: Acute Qualifiers: Laterality: unspecified laterality Site of cellulitis: extremity Site of cellulitis of extremity: lower extremity Qualified Code(s): L03.119 - Cellulitis of unspecified part of limb Plan: -Improved, continue abx (3) Sacral decubitus ulcer: Status: Acute Qualifiers: Pressure injury stage: stage 3 Qualified Code(s): L89.153 - Pressure ulcer of sacral region, stage 3 Plan: -Consult General Surgery for evaluation -F/u recs (4) Acute renal failure: Status: Acute Qualifiers: Acute renal failure type: unspecified Qualified Code(s): N17.9 - Acute kidney failure, unspecified Plan: -Improved -Cr:1.58>1.83>1.31>1.08 (5) Generalized weakness: Status: Acute
[2019-05-07] MEDS: ABILIFY PO SCH (10:00)
[2019-05-07] MEDS: HumuLIN R SC PRN ×2 (12:22→17:35)
[2019-05-07] MEDS: LOVENOX INJ 40 MG SYR SC SCH (15:18)
[2019-05-07] MEDS: TRICOR TAB 160 MG PO SCH (21:15)
[2019-05-07] MEDS: ZOCOR TAB 40 MG PO SCH (21:15)
[2019-05-07] MEDS: CYMBALTA PO SCH (21:15)
[2019-05-07] MEDS: SNACK - Diabetic Appropriate PO SCH (22:48)
[2019-05-08] MEDS: NS 1000 ML 1,000 ML IV SCH ×3 (01:03→16:25)
[2019-05-08] MEDS: MORPHINE SULFATE INJ 4 MG IVP PRN ×4 (05:16→23:17)
[2019-05-08] MEDS ORDERED: NS 100 ML IV 100 ML IV ONE ×3 (05:31→20:20)
[2019-05-08] MEDS ORDERED: MERREM VIAL ONE ×3 (05:31→20:20)
[2019-05-08 05:36] LABS: BASOPHILS % (AUTO) 0.7 % (0.2-1.0); EOSINOPHILS # (AUTO) 0.5 x10^3/uL (0.0-0.2); EOSINOPHILS % (AUTO) 6.2 % (0.9-2.9); HEMATOCRIT 30.4 % (36.0-47.0); HEMOGLOBIN 9.9 g/dL (12.0-16.0); LYMPHOCYTES # (AUTO) 1.3 X10^3/uL (1.3-2.9); LYMPHOCYTES % (AUTO) 18.2 % (21.0-51.0); MEAN CORPUSCULAR HEMOGLOBIN 26.8 pg (27.0-34.0); MEAN CORPUSCULAR HGB CONC 32.7 g/dL (33.0-35.0); MEAN CORPUSCULAR VOLUME 81.8 fL (80.0-100.0); MEAN PLATELET VOLUME 7.1 fL (7.4-11.0); MONOCYTES # (AUTO) 0.7 x10^3/uL (0.3-0.8); MONOCYTES % (AUTO) 9.3 % (0.0-13.0); NEUTROPHILS # (AUTO) 4.8 x10^3/uL (2.2-4.8); NEUTROPHILS % (AUTO) 65.6 % (42.0-75.0); PLATELET COUNT 326 X10^3/uL (150.0-450.0); RED BLOOD COUNT 3.71 X10^6/uL (3.5-5.4); RED CELL DISTRIBUTION WIDTH 14.7 % (11.6-16.5); WHITE BLOOD COUNT 7.4 X10^3/uL (3.6-10.0)
[2019-05-08 05:42] LABS: BLOOD UREA NITROGEN 11 mg/dL (7-18); CALCIUM 8.6 mg/dL (8.5-10.1); CARBON DIOXIDE 28.2 mmol/L (21-32); CHLORIDE 105 mmol/L (98-107); COR NA(FOR HYPERGLY) 140 mmol/L (136-145); CREATININE 1.03 mg/dL (0.55-1.02); SODIUM 139 mmol/L (136-145); eGFR NON BLACK RACES 57 (>60)
[2019-05-08] MEDS: MERREM VIAL 1 G in NS 100 ML IV + SPIKE MINIBAG* 100 ML IV SCH ×3 (05:49→21:09)
[2019-05-08] MEDS: BENTYL CAP 10 MG PO SCH ×4 (08:26→21:01)
[2019-05-08] MEDS: SYNTHROID 100 mcg TAB PO SCH (08:26)
[2019-05-08] MEDS: SINEMET (PLAIN) 10/100 MG PO SCH ×2 (08:26→21:01)
[2019-05-08] MEDS: XANAX PO PRN (08:26)
[2019-05-08] MEDS: PEPCID TAB 20 MG PO SCH (08:26)
--- NOTE | 2019-05-08 08:26 | PCM.PROG ---
Progress Note Progress Note for Day of Date of Exam: 05/08/19 Subjective Subjective: Pt is a 64 yo f presenting after having worsening rash on lower extremities bilaterally, red, warm, w/ associated fevers, chills. Reports also a generalized weakness. She was recently in a [facility] and was discharged home last week with Home health. Per ED note, HH nurse noted worsening decubitus ulcer and lower extremity rash. Her initial labs; Wbc 10.8, Hgb 10.2, Cr 1.58, UA:+nitrite, leuk est, wbc and bacteria. CXR negative. She was started on Vancomycin+Fortaz. UrineCx:ESBL Enterobacter cloacae, SacralCx:Proteus mirabilis. IV abx changed to Meropenem(05/06/19). - Pt states she feels the same as yesterday. Her cellulitis has improved. She is tolerating po, denies fevers, chills, or any acute events overnight. Requesting to work with PT today. Past Medical Family Social History Past Med/Fam/Surg Hx: No changes since H&P Allergies: Allergies oxycodone Allergy (Verified 08/10/18 16:18) Review of Systems ROS: No change since H&P Vital Signs and I&O's Vital Signs: Temperature 97.7 F Pulse Rate [Left Brachial] 78 Pulse Rate 76 Respiratory Rate 20 Blood Pressure [Left Arm] 156/72 Blood Pressure [Right Arm] 137/64 Blood Pressure 150/62 O2 Sat by Pulse Oximetry 98 Intake and Output: Intake & Output 05/05/19 05/06/19 05/07/19 05/08/19 23:59 23:59 23:59 23:59 Intake Total 1475 / 1475 1900 / 1900 2059 / 2059 120 / 120 Output Total 1200 / 1200 3800 / 3800 2925 / 2925 500 / 500 Balance 275 / 275 -1900 / -1900 -865 / -865 -380 / -380 Physical Exam Oriented: Normal Eyes: Normal Ear: Normal Nose: Normal Cardiovascular: Normal : Normal Auscultation: Bowel Sounds: Normal Tenderness: Normal Skin: Red (improvement ) Musculoskeletal: Normal Psychiatric: Normal Speech Pattern: Clear and Appropriate Laboratory and Diagnostics Result Diagrams: 05/08/19 05:12 05/08/19 05:12 Labs: 05/04/19 13:32 Urine,Catheterized Urine Culture - Final Enterobacter Cloacae 05/04/19 13:32 Sacral Gram Stain - Final 05/04/19 13:32 Sacral Wound Culture - Final Proteus Mirabilis 05/04/19 11:43 Blood Blood Culture - Preliminary 05/04/19 11:35 Blood Blood Culture - Preliminary Laboratory WBC 7.4 X10^3/uL (3.6-10.0) 05/08/19 05:12 RBC 3.71 X10^6/uL (3.5-5.4) 05/08/19 05:12 Hgb 9.9 g/dL (12.0-16.0) L 05/08/19 05:12 Hct 30.4 % (36.0-47.0) L 05/08/19 05:12 MCV 81.8 fL (80.0-100.0) 05/08/19 05:12 MCH 26.8 pg (27.0-34.0) L 05/08/19 05:12 MCHC 32.7 g/dL (33.0-35.0) L 05/08/19 05:12 RDW 14.7 % (11.6-16.5) 05/08/19 05:12 Plt Count 326 X10^3/uL (150.0-450.0) 05/08/19 05:12 Plt Count Comment Adequate (ADEQUATE) 05/05/19 04:49 MPV 7.1 fL (7.4-11.0) L 05/08/19 05:12 Neut % (Auto) 65.6 % (42.0-75.0) 05/08/19 05:12 Lymph % (Auto) 18.2 % (21.0-51.0) L 05/08/19 05:12 [place] % (Auto) 9.3 % (0.0-13.0) 05/08/19 05:12 Eos % (Auto) 6.2 % (0.9-2.9) H 05/08/19 05:12 Baso % (Auto) 0.7 % (0.2-1.0) 05/08/19 05:12 Neut # (Auto) 4.8 x10^3/uL (2.2-4.8) 05/08/19 05:12 Lymph # (Auto) 1.3 X10^3/uL (1.3-2.9) 05/08/19 05:12 [place] # (Auto) 0.7 x10^3/uL (0.3-0.8) 05/08/19 05:12 Eos # (Auto) 0.5 x10^3/uL (0.0-0.2) H 05/08/19 05:12 Baso # (Auto) 0.0 X10^3/uL (0.0-0.1) 05/08/19 05:12 Absolute Nucleated RBC 0.0 /100WBC 05/08/19 05:12 Total Counted 100 05/05/19 04:49 Neutrophils % (Manual) 88 % (39-76) H 05/05/19 04:49 Band Neutrophils % 4 % (0-10) 05/05/19 04:49 Lymphocytes % (Manual) 4 % (13-43) L 05/05/19 04:49 Monocytes % (Manual) 4 % (4-9) 05/05/19 04:49 Plt Morphology Comment Normal (NORMAL) 05/05/19 04:49 RBC Morphology Abnormal (NORMAL) A 05/05/19 04:49 Hypochromasia Slight A 05/05/19 04:49 Stomatocytes Present 05/05/19 04:49 Sodium 139 mmol/L (136-145) 05/08/19 05:12 Corrected Sodium 140 mmol/L (136-145) 05/08/19 05:12 Potassium 4.0 mmol/L (3.5-5.1) 05/08/19 05:12 Chloride 105 mmol/L (98-107) 05/08/19 05:12 Carbon Dioxide 28.2 mmol/L (21-32) 05/08/19 05:12 BUN 11 mg/dL (7-18) 05/08/19 05:12 Creatinine 1.03 mg/dL (0.55-1.02) H 05/08/19 05:12 Est GFR (MDRD) Af Amer > 60 (>60) 05/08/19 05:12 Est GFR (MDRD) Non-Af 57 (>60) L 05/08/19 05:12 Glucose 142 mg/dL (65-99) H 05/08/19 05:12 POC Glucose (mg/dL) 129 mg/dL (65-99) H 05/08/19 06:04 Lactic Acid 1.1 mmol/L (0.4-2.0) 05/05/19 11:22 Calcium 8.6 mg/dL (8.5-10.1) 05/08/19 05:12 Corrected Calcium 9.6 mg/dL (8.5-10.1) 05/05/19 04:49 Magnesium 1.9 mg/dL (1.7-2.9) 05/06/19 05:00 Total Bilirubin 0.30 mg/dL (0.2-1.0) 05/05/19 04:49 AST 13 Units/L (15-37) L 05/05/19 04:49 ALT 7 Units/L (12-78) L 05/05/19 04:49 Alkaline Phosphatase 56 Units/L (46-116) 05/05/19 04:49 Creatine Kinase 127 Units/L (26-192) 05/04/19 23:55 CK-MB (CK-2) 1.1 ng/mL (0-4.0) 05/04/19 23:55 CK/CKMB % Calc 0.9 % (<4) 05/04/19 23:55 Troponin I 0.09 ng/mL (0-1.5) 05/04/19 23:55 Total Protein 6.5 g/dL (6.4-8.2) 05/05/19 04:49 Albumin 2.6 g/dL (3.4-5.0) L 05/05/19 04:49 Globulin 3.9 g/dL (2.5-4.5) 05/05/19 04:49 Albumin/Globulin Ratio 0.7 Ratio (1.1-2.1) L 05/05/19 04:49 Specimen Type Catherized urine 05/04/19 13:32 Urine Color Yellow (YELLOW) 05/04/19 13:32 Urine Appearance Cloudy (CLEAR) 05/04/19 13:32 Urine pH 5.0 (5.0 - 8.0) 05/04/19 13:32 Ur Specific [place] 1.010 (1.000-1.030) 05/04/19 13:32 Urine Protein 2+ (NEGATIVE) 05/04/19 13:32 Urine Glucose (UA) 4+ (NEGATIVE) 05/04/19 13:32 Urine Ketones Negative (NEGATIVE) 05/04/19 13:32 Urine Occult Blood 1+ (NEGATIVE) 05/04/19 13:32 Urine Nitrite Positive (NEGATIVE) 05/04/19 13:32 Urine Bilirubin Negative (NEGATIVE) 05/04/19 13:32 Urine Urobilinogen Normal (NORMAL) 05/04/19 13:32 Ur Leukocyte Esterase 3+ (NEGATIVE) 05/04/19 13:32 Urine RBC 3-5 /HPF (0-3) A 05/04/19 13:32 Urine WBC Tntc /HPF (0-5) A 05/04/19 13:32 Ur Squamous Epith Cells Rare /HPF (NEGATIVE) 05/04/19 13:32 Urine Bacteria 2+ /HPF (NEGATIVE) 05/04/19 13:32 Ur Culture Indicated? Yes/culture set up 05/04/19 13:32 Plan (1) Sepsis: Status: Acute Qualifiers: Sepsis type: sepsis due to unspecified organism Sepsis acute organ dysfunction status: unspecified Qualified Code(s): A41.9 - Sepsis, unspecified organism Plan: -Pt w/ improving leukocytosis WBC:24>12.1>12.4>7.4, Afebrile. Her sx have improved. -UrineCx:ESBL Enterobacter cloacae, SacralCx:Proteus mirabilis. BloodCx:NGTD -Abx(05/05/19):Vancomycin + Fortaz >changed to Meropenem(05/06/19) will need tx x1 week. -Continue to monitor (2) Cellulitis: Status: Acute Qualifiers: Laterality: unspecified laterality Site of cellulitis: extremity Site of cellulitis of extremity: lower extremity Qualified Code(s): L03.119 - Cellulitis of unspecified part of limb Plan: -Improved, continue abx (3) Sacral decubitus ulcer: Status: Acute Qualifiers: Pressure injury stage: stage 3 Qualified Code(s): L89.153 - Pressure ulcer of sacral region, stage 3 Plan: -Consult General Surgery-wound vac placed (4) Acute renal failure: Status: Acute Qualifiers: Acute renal failure type: unspecified Qualified Code(s): N17.9 - Acute kidney failure, unspecified Plan: -Improved -Cr:1.58>1.83>1.31>1.08>1.03 (5) Generalized weakness: Status: Acute
[2019-05-08] MEDS: COREG TAB 3.125 MG PO SCH ×2 (08:27→21:01)
[2019-05-08] MEDS: LEVEMIR SC SCH ×2 (08:31→21:02)
[2019-05-08] MEDS: ABILIFY PO SCH (08:32)
[2019-05-08] MEDS: PATIENT'S HOME MEDICATION (Dexlansoprazole [Dexilant] 60 MG) PO SCH (08:33)
[2019-05-08] MEDS: LOVENOX INJ 40 MG SYR SC SCH (08:37)
[2019-05-08] MEDS: NYSTATIN POWDER TOP SCH ×2 (11:45→22:34)
[2019-05-08] MEDS: TYLENOL 325 MG TAB PO PRN (13:58)
[2019-05-08] MEDS: HumuLIN R SC PRN (17:56)
[2019-05-08] MEDS: TRICOR TAB 160 MG PO SCH (21:01)
[2019-05-08] MEDS: CYMBALTA PO SCH (21:01)
[2019-05-08] MEDS: ZOCOR TAB 40 MG PO SCH (21:01)
[2019-05-08] MEDS: SNACK - Diabetic Appropriate PO SCH ×2 (22:32)
[2019-05-09] MEDS: NS 1000 ML 1,000 ML IV SCH ×3 (01:02→14:20)
[2019-05-09] MEDS ORDERED: MERREM VIAL ONE ×2 (03:30→14:25)
[2019-05-09] MEDS ORDERED: NS 100 ML IV 100 ML IV ONE ×2 (03:30→14:24)
[2019-05-09] MEDS: MERREM VIAL 1 G in NS 100 ML IV + SPIKE MINIBAG* 100 ML IV SCH ×2 (05:10→14:32)
[2019-05-09 05:20] LABS: BLOOD UREA NITROGEN 10 mg/dL (7-18); CALCIUM 8.8 mg/dL (8.5-10.1); CARBON DIOXIDE 28.2 mmol/L (21-32); CHLORIDE 106 mmol/L (98-107); CREATININE 0.87 mg/dL (0.55-1.02); SODIUM 141 mmol/L (136-145); eGFR NON BLACK RACES > 60 (>60)
[2019-05-09 05:22] LABS: BASOPHILS % (AUTO) 0.5 % (0.2-1.0); EOSINOPHILS # (AUTO) 0.5 x10^3/uL (0.0-0.2); EOSINOPHILS % (AUTO) 6.2 % (0.9-2.9); HEMATOCRIT 29.9 % (36.0-47.0); HEMOGLOBIN 9.9 g/dL (12.0-16.0); LYMPHOCYTES # (AUTO) 1.9 X10^3/uL (1.3-2.9); LYMPHOCYTES % (AUTO) 21.7 % (21.0-51.0); MEAN CORPUSCULAR HEMOGLOBIN 27.3 pg (27.0-34.0); MEAN CORPUSCULAR HGB CONC 33.1 g/dL (33.0-35.0); MEAN CORPUSCULAR VOLUME 82.7 fL (80.0-100.0); MEAN PLATELET VOLUME 7.5 fL (7.4-11.0); MONOCYTES # (AUTO) 0.9 x10^3/uL (0.3-0.8); MONOCYTES % (AUTO) 10.3 % (0.0-13.0); NEUTROPHILS # (AUTO) 5.4 x10^3/uL (2.2-4.8); NEUTROPHILS % (AUTO) 61.3 % (42.0-75.0); PLATELET COUNT 351 X10^3/uL (150.0-450.0); RED BLOOD COUNT 3.62 X10^6/uL (3.5-5.4); RED CELL DISTRIBUTION WIDTH 14.9 % (11.6-16.5); WHITE BLOOD COUNT 8.8 X10^3/uL (3.6-10.0)
[2019-05-09] MEDS: LEVEMIR SC SCH ×2 (09:35→22:20)
[2019-05-09] MEDS: PEPCID TAB 20 MG PO SCH (09:46)
[2019-05-09] MEDS: SYNTHROID 100 mcg TAB PO SCH (09:46)
[2019-05-09] MEDS: MORPHINE SULFATE INJ 4 MG IVP PRN ×2 (09:47→16:42)
[2019-05-09] MEDS: ABILIFY PO SCH (09:49)
[2019-05-09] MEDS: COREG TAB 3.125 MG PO SCH ×2 (09:50→22:20)
[2019-05-09] MEDS: SINEMET (PLAIN) 10/100 MG PO SCH ×2 (09:50→22:19)
[2019-05-09] MEDS: BENTYL CAP 10 MG PO SCH ×4 (09:50→22:19)
[2019-05-09] MEDS: LOVENOX INJ 40 MG SYR SC SCH (09:51)
[2019-05-09] MEDS: NYSTATIN POWDER TOP SCH ×2 (09:52→22:21)
[2019-05-09] MEDS: PATIENT'S HOME MEDICATION (Dexlansoprazole [Dexilant] 60 MG) PO SCH (09:55)
--- NOTE | 2019-05-09 13:11 | PCM.PROG ---
Progress Note Progress Note for Day of Date of Exam: 05/09/19 Subjective Subjective: Pt is a 64 yo f admitted for cellulitis on lower extremities, sepsis, decubitus ulcer, and generalized weakness. Her initial labs; Wbc 10.8, Hgb 10.2, Cr 1.58, UA:+nitrite, leuk est, wbc and bacteria. CXR negative. She was started on Vancomycin+Fortaz. UrineCx:ESBL Enterobacter cloacae, Sacr alCx:Proteus mirabilis. IV abx changed to Meropenem(05/06/19). - Pt states that her blood sugar was low late last night and had symptoms. She does admit that she did not eat much of her dinner last night d/t taste, which may be the reason for it dropping low. She is wondering more about PT and co nsidering additional rehab at a SNF. Denies any other concerns or symptoms. Past Medical Family Social History Past Med/Fam/Surg Hx: No changes since H&P Allergies: Allergies oxycodone Allergy (Verified 08/10/18 16:18) Review of Systems ROS: No change since H&P Vital Signs and I&O's Vital Signs: Temperature 97.6 F Pulse Rate [Left Brachial] 76 Pulse Rate 76 Respiratory Rate 18 Blood Pressure [Left Arm] 171/88 Blood Pressure [Right Arm] 145/71 Blood Pressure 150/62 O2 Sat by Pulse Oximetry 96 Intake and Output: Intake & Output 05/06/19 05/07/19 05/08/19 05/09/19 23:59 23:59 23:59 23:59 Intake Total 1900 / 1900 0 / 0 1500 / 1500 350 / 350 Output Total 3800 / 3800 2925 / 2925 2375 / 2375 Balance -1900 / -1900 -865 / -865 -875 / -875 350 / 350 Physical Exam Oriented: Normal Eyes: Normal Ear: Normal Nose: Normal Respiratory: Normal Cardiovascular: Normal : Normal Auscultation: Bowel Sounds: Normal Tenderness: Normal Skin: Other (dermatitis skin color changes d/t venous insufficiency) Musculoskeletal: Normal Psychiatric: Normal Speech Pattern: Clear and Appropriate Laboratory and Diagnostics Result Diagrams: 05/09/19 04:39 05/09/19 04:39 Labs: 05/04/19 11:35 Blood Blood Culture - Final 05/04/19 13:32 Urine,Catheterized Urine Culture - Final Enterobacter Cloacae 05/04/19 13:32 Sacral Gram Stain - Final 05/04/19 13:32 Sacral Wound Culture - Final Proteus Mirabilis 05/04/19 11:43 Blood Blood Culture - Preliminary Laboratory WBC 8.8 X10^3/uL (3.6-10.0) 05/09/19 04:39 RBC 3.62 X10^6/uL (3.5-5.4) 05/09/19 04:39 Hgb 9.9 g/dL (12.0-16.0) L 05/09/19 04:39 Hct 29.9 % (36.0-47.0) L 05/09/19 04:39 MCV 82.7 fL (80.0-100.0) 05/09/19 04:39 MCH 27.3 pg (27.0-34.0) 05/09/19 04:39 MCHC 33.1 g/dL (33.0-35.0) 05/09/19 04:39 RDW 14.9 % (11.6-16.5) 05/09/19 04:39 Plt Count 351 X10^3/uL (150.0-450.0) 05/09/19 04:39 Plt Count Comment Adequate (ADEQUATE) 05/05/19 04:49 MPV 7.5 fL (7.4-11.0) 05/09/19 04:39 Neut % (Auto) 61.3 % (42.0-75.0) 05/09/19 04:39 Lymph % (Auto) 21.7 % (21.0-51.0) 05/09/19 04:39 [place] % (Auto) 10.3 % (0.0-13.0) 05/09/19 04:39 Eos % (Auto) 6.2 % (0.9-2.9) H 05/09/19 04:39 Baso % (Auto) 0.5 % (0.2-1.0) 05/09/19 04:39 Neut # (Auto) 5.4 x10^3/uL (2.2-4.8) H 05/09/19 04:39 Lymph # (Auto) 1.9 X10^3/uL (1.3-2.9) 05/09/19 04:39 [place] # (Auto) 0.9 x10^3/uL (0.3-0.8) H 05/09/19 04:39 Eos # (Auto) 0.5 x10^3/uL (0.0-0.2) H 05/09/19 04:39 Baso # (Auto) 0.0 X10^3/uL (0.0-0.1) 05/09/19 04:39 Absolute Nucleated RBC 0.0 /100WBC 05/09/19 04:39 Total Counted 100 05/05/19 04:49 Neutrophils % (Manual) 88 % (39-76) H 05/05/19 04:49 Band Neutrophils % 4 % (0-10) 05/05/19 04:49 Lymphocytes % (Manual) 4 % (13-43) L 05/05/19 04:49 Monocytes % (Manual) 4 % (4-9) 05/05/19 04:49 Plt Morphology Comment Normal (NORMAL) 05/05/19 04:49 RBC Morphology Abnormal (NORMAL) A 05/05/19 04:49 Hypochromasia Slight A 05/05/19 04:49 Stomatocytes Present 05/05/19 04:49 Sodium 141 mmol/L (136-145) 05/09/19 04:39 Corrected Sodium TNP 05/09/19 04:39 Potassium 3.8 mmol/L (3.5-5.1) 05/09/19 04:39 Chloride 106 mmol/L (98-107) 05/09/19 04:39 Carbon Dioxide 28.2 mmol/L (21-32) 05/09/19 04:39 BUN 10 mg/dL (7-18) 05/09/19 04:39 Creatinine 0.87 mg/dL (0.55-1.02) 05/09/19 04:39 Est GFR (MDRD) Af Amer > 60 (>60) 05/09/19 04:39 Est GFR (MDRD) Non-Af > 60 (>60) 05/09/19 04:39 Glucose 68 mg/dL (65-99) 05/09/19 04:39 POC Glucose (mg/dL) 122 mg/dL (65-99) H 05/09/19 11:57 Lactic Acid 1.1 mmol/L (0.4-2.0) 05/05/19 11:22 Calcium 8.8 mg/dL (8.5-10.1) 05/09/19 04:39 Corrected Calcium 9.6 mg/dL (8.5-10.1) 05/05/19 04:49 Magnesium 1.9 mg/dL (1.7-2.9) 05/06/19 05:00 Total Bilirubin 0.30 mg/dL (0.2-1.0) 05/05/19 04:49 AST 13 Units/L (15-37) L 05/05/19 04:49 ALT 7 Units/L (12-78) L 05/05/19 04:49 Alkaline Phosphatase 56 Units/L (46-116) 05/05/19 04:49 Creatine Kinase 127 Units/L (26-192) 05/04/19 23:55 CK-MB (CK-2) 1.1 ng/mL (0-4.0) 05/04/19 23:55 CK/CKMB % Calc 0.9 % (<4) 05/04/19 23:55 Troponin I 0.09 ng/mL (0-1.5) 05/04/19 23:55 Total Protein 6.5 g/dL (6.4-8.2) 05/05/19 04:49 Albumin 2.6 g/dL (3.4-5.0) L 05/05/19 04:49 Globulin 3.9 g/dL (2.5-4.5) 05/05/19 04:49 Albumin/Globulin Ratio 0.7 Ratio (1.1-2.1) L 05/05/19 04:49 Specimen Type Catherized urine 05/04/19 13:32 Urine Color Yellow (YELLOW) 05/04/19 13:32 Urine Appearance Cloudy (CLEAR) 05/04/19 13:32 Urine pH 5.0 (5.0 - 8.0) 05/04/19 13:32 Ur Specific [place] 1.010 (1.000-1.030) 05/04/19 13:32 Urine Protein 2+ (NEGATIVE) 05/04/19 13:32 Urine Glucose (UA) 4+ (NEGATIVE) 05/04/19 13:32 Urine Ketones Negative (NEGATIVE) 05/04/19 13:32 Urine Occult Blood 1+ (NEGATIVE) 05/04/19 13:32 Urine Nitrite Positive (NEGATIVE) 05/04/19 13:32 Urine Bilirubin Negative (NEGATIVE) 05/04/19 13:32 Urine Urobilinogen Normal (NORMAL) 05/04/19 13:32 Ur Leukocyte Esterase 3+ (NEGATIVE) 05/04/19 13:32 Urine RBC 3-5 /HPF (0-3) A 05/04/19 13:32 Urine WBC Tntc /HPF (0-5) A 05/04/19 13:32 Ur Squamous Epith Cells Rare /HPF (NEGATIVE) 05/04/19 13:32 Urine Bacteria 2+ /HPF (NEGATIVE) 05/04/19 13:32 Ur Culture Indicated? Yes/culture set up 05/04/19 13:32 Plan (1) ESBL (extended spectrum beta-lactamase) producing bacteria infection: Status: Acute Plan: UrineCx:ESBL Enterobacter cloacae Meropenem(05/06/19) will need tx x7 days. (2) Sepsis: Status: Acute Qualifiers: Sepsis acute organ dysfunction status: unspecified Sepsis type: sepsis due to unspecified organism Qualified Code(s): A41.9 - Sepsis, unspecified organism Plan: -Leukocytosis resolved. Afebrile. -UrineCx:ESBL Enterobacter cloacae, SacralCx:Proteus mirabilis. BloodCx:NGTD -Abx(05/05/19):Vancomycin + Fortaz >changed to Meropenem(05/06/19) will need tx x7 days. -Continue to monitor (3) Cellulitis: Status: Acute Qualifiers: Laterality: unspecified laterality Site of cellulitis: extremity Site of cellulitis of extremity: lower extremity Qualified Code(s): L03.119 - Cellulitis of unspecified part of limb Plan: -Improved, continue abx (4) Sacral decubitus ulcer: Status: Acute Qualifiers: Pressure injury stage: stage 3 Qualified Code(s): L89.153 - Pressure ulcer of sacral region, stage 3 Plan: -Consult General Surgery-wound vac placed (5) Generalized weakness: Status: Acute Plan: Physical therapy
[2019-05-09] MEDS: HumuLIN R SC PRN (16:41)
[2019-05-09] MEDS: MERREM VIAL 1,000 MG in NS 100 ML IV + SPIKE MINIBAG* 100 ML IVP SCH (22:15)
[2019-05-09] MEDS: CYMBALTA PO SCH (22:15)
[2019-05-09] MEDS: SNACK - Diabetic Appropriate PO SCH (22:18)
[2019-05-09] MEDS: ZOCOR TAB 40 MG PO SCH (22:19)
[2019-05-09] MEDS: TRICOR TAB 160 MG PO SCH (22:19)
[2019-05-09] MEDS: TYLENOL 325 MG TAB PO PRN (23:00)
[2019-05-10] MEDS: NS 1000 ML 1,000 ML IV SCH ×4 (01:47→17:24)
[2019-05-10] MEDS: MORPHINE SULFATE INJ 4 MG IVP PRN ×3 (04:26→20:19)
[2019-05-10 05:23] LABS: BASOPHILS % (AUTO) 0.5 % (0.2-1.0); EOSINOPHILS # (AUTO) 0.4 x10^3/uL (0.0-0.2); EOSINOPHILS % (AUTO) 4.6 % (0.9-2.9); HEMATOCRIT 28.2 % (36.0-47.0); HEMOGLOBIN 9.3 g/dL (12.0-16.0); LYMPHOCYTES # (AUTO) 1.8 X10^3/uL (1.3-2.9); LYMPHOCYTES % (AUTO) 22.6 % (21.0-51.0); MEAN CORPUSCULAR HEMOGLOBIN 27.3 pg (27.0-34.0); MEAN CORPUSCULAR HGB CONC 32.9 g/dL (33.0-35.0); MEAN CORPUSCULAR VOLUME 82.9 fL (80.0-100.0); MEAN PLATELET VOLUME 7.3 fL (7.4-11.0); MONOCYTES # (AUTO) 0.6 x10^3/uL (0.3-0.8); MONOCYTES % (AUTO) 7.9 % (0.0-13.0); NEUTROPHILS # (AUTO) 5.1 x10^3/uL (2.2-4.8); NEUTROPHILS % (AUTO) 64.4 % (42.0-75.0); PLATELET COUNT 342 X10^3/uL (150.0-450.0); RED CELL DISTRIBUTION WIDTH 14.8 % (11.6-16.5)
[2019-05-10 05:29] LABS: BLOOD UREA NITROGEN 10 mg/dL (7-18); CALCIUM 8.7 mg/dL (8.5-10.1); CARBON DIOXIDE 27.4 mmol/L (21-32); CHLORIDE 107 mmol/L (98-107); COR NA(FOR HYPERGLY) 143 mmol/L (136-145); CREATININE 0.97 mg/dL (0.55-1.02); SODIUM 140 mmol/L (136-145); eGFR NON BLACK RACES > 60 (>60)
[2019-05-10] MEDS: MERREM VIAL 1,000 MG in NS 100 ML IV + SPIKE MINIBAG* 100 ML IVP SCH ×3 (06:38→20:19)
[2019-05-10] MEDS: HumuLIN R SC PRN ×2 (06:39→11:41)
--- NOTE | 2019-05-10 08:01 | PCM.PROG ---
Progress Note Progress Note for Day of Date of Exam: 05/10/19 Subjective Subjective: Pt is a 64 yo f admitted for cellulitis on lower extremities, sepsis, decubitus ulcer, and generalized weakness. Her initial labs; Wbc 10.8, Hgb 10.2, Cr 1.58, UA:+nitrite, leuk est, wbc and bacteria. CXR negative. She was started on Vancomycin+Fortaz. UrineCx:ESBL Enterobacter cloacae, Sacr alCx:Proteus mirabilis. IV abx changed to Meropenem(05/06/19). - Pt states her blood sugar was fine yesterday and last night. She was able to work with PT. Denies any other concerns or symptoms. Past Medical Family Social History Past Med/Fam/Surg Hx: No changes since H&P Allergies: Allergies oxycodone Allergy (Verified 08/10/18 16:18) Review of Systems ROS: No change since H&P Vital Signs and I&O's Vital Signs: Temperature 98.3 F Pulse Rate [Right Brachial] 72 Pulse Rate [Left Brachial] 76 Pulse Rate 76 Respiratory Rate 20 Blood Pressure [Left Arm] 171/88 Blood Pressure [Right Arm] 157/78 Blood Pressure 150/62 O2 Sat by Pulse Oximetry 98 Intake and Output: Intake & Output 05/07/19 05/08/19 05/09/19 05/10/19 23:59 23:59 23:59 23:59 Intake Total 2060 / 2060 1500 / 1500 2380 / 2380 120 / 120 Output Total 2925 / 2925 2375 / 2375 375 / 375 450 / 450 Balance -865 / -865 -875 / -875 2004 / 2004 -330 / -330 Physical Exam Oriented: Normal Eyes: Normal Ear: Normal Nose: Normal Respiratory: Normal Cardiovascular: Normal : Normal Auscultation: Bowel Sounds: Normal Tenderness: Normal Skin: Other (dermatitis skin color changes d/t venous insufficiency) Musculoskeletal: Normal Psychiatric: Normal Speech Pattern: Clear and Appropriate Laboratory and Diagnostics Result Diagrams: 05/10/19 04:46 05/10/19 04:46 Labs: 05/04/19 11:43 Blood Blood Culture - Final 05/04/19 11:35 Blood Blood Culture - Final 05/04/19 13:32 Urine,Catheterized Urine Culture - Final Enterobacter Cloacae 05/04/19 13:32 Sacral Gram Stain - Final 05/04/19 13:32 Sacral Wound Culture - Final Proteus Mirabilis Laboratory WBC 8.0 X10^3/uL (3.6-10.0) 05/10/19 04:46 RBC 3.40 X10^6/uL (3.5-5.4) L 05/10/19 04:46 Hgb 9.3 g/dL (12.0-16.0) L 05/10/19 04:46 Hct 28.2 % (36.0-47.0) L 05/10/19 04:46 MCV 82.9 fL (80.0-100.0) 05/10/19 04:46 MCH 27.3 pg (27.0-34.0) 05/10/19 04:46 MCHC 32.9 g/dL (33.0-35.0) L 05/10/19 04:46 RDW 14.8 % (11.6-16.5) 05/10/19 04:46 Plt Count 342 X10^3/uL (150.0-450.0) 05/10/19 04:46 Plt Count Comment Adequate (ADEQUATE) 05/05/19 04:49 MPV 7.3 fL (7.4-11.0) L 05/10/19 04:46 Neut % (Auto) 64.4 % (42.0-75.0) 05/10/19 04:46 Lymph % (Auto) 22.6 % (21.0-51.0) 05/10/19 04:46 [place] % (Auto) 7.9 % (0.0-13.0) 05/10/19 04:46 Eos % (Auto) 4.6 % (0.9-2.9) H 05/10/19 04:46 Baso % (Auto) 0.5 % (0.2-1.0) 05/10/19 04:46 Neut # (Auto) 5.1 x10^3/uL (2.2-4.8) H 05/10/19 04:46 Lymph # (Auto) 1.8 X10^3/uL (1.3-2.9) 05/10/19 04:46 [place] # (Auto) 0.6 x10^3/uL (0.3-0.8) 05/10/19 04:46 Eos # (Auto) 0.4 x10^3/uL (0.0-0.2) H 05/10/19 04:46 Baso # (Auto) 0.0 X10^3/uL (0.0-0.1) 05/10/19 04:46 Absolute Nucleated RBC 0.0 /100WBC 05/10/19 04:46 Total Counted 100 05/05/19 04:49 Neutrophils % (Manual) 88 % (39-76) H 05/05/19 04:49 Band Neutrophils % 4 % (0-10) 05/05/19 04:49 Lymphocytes % (Manual) 4 % (13-43) L 05/05/19 04:49 Monocytes % (Manual) 4 % (4-9) 05/05/19 04:49 Plt Morphology Comment Normal (NORMAL) 05/05/19 04:49 RBC Morphology Abnormal (NORMAL) A 05/05/19 04:49 Hypochromasia Slight A 05/05/19 04:49 Stomatocytes Present 05/05/19 04:49 Sodium 140 mmol/L (136-145) 05/10/19 04:46 Corrected Sodium 143 mmol/L (136-145) 05/10/19 04:46 Potassium 4.0 mmol/L (3.5-5.1) 05/10/19 04:46 Chloride 107 mmol/L (98-107) 05/10/19 04:46 Carbon Dioxide 27.4 mmol/L (21-32) 05/10/19 04:46 BUN 10 mg/dL (7-18) 05/10/19 04:46 Creatinine 0.97 mg/dL (0.55-1.02) 05/10/19 04:46 Est GFR (MDRD) Af Amer > 60 (>60) 05/10/19 04:46 Est GFR (MDRD) Non-Af > 60 (>60) 05/10/19 04:46 Glucose 214 mg/dL (65-99) H 05/10/19 04:46 POC Glucose (mg/dL) 179 mg/dL (65-99) H 05/10/19 05:37 Lactic Acid 1.1 mmol/L (0.4-2.0) 05/05/19 11:22 Calcium 8.7 mg/dL (8.5-10.1) 05/10/19 04:46 Corrected Calcium 9.6 mg/dL (8.5-10.1) 05/05/19 04:49 Magnesium 1.9 mg/dL (1.7-2.9) 05/06/19 05:00 Total Bilirubin 0.30 mg/dL (0.2-1.0) 05/05/19 04:49 AST 13 Units/L (15-37) L 05/05/19 04:49 ALT 7 Units/L (12-78) L 05/05/19 04:49 Alkaline Phosphatase 56 Units/L (46-116) 05/05/19 04:49 Creatine Kinase 127 Units/L (26-192) 05/04/19 23:55 CK-MB (CK-2) 1.1 ng/mL (0-4.0) 05/04/19 23:55 CK/CKMB % Calc 0.9 % (<4) 05/04/19 23:55 Troponin I 0.09 ng/mL (0-1.5) 05/04/19 23:55 Total Protein 6.5 g/dL (6.4-8.2) 05/05/19 04:49 Albumin 2.6 g/dL (3.4-5.0) L 05/05/19 04:49 Globulin 3.9 g/dL (2.5-4.5) 05/05/19 04:49 Albumin/Globulin Ratio 0.7 Ratio (1.1-2.1) L 05/05/19 04:49 Specimen Type Catherized urine 05/04/19 13:32 Urine Color Yellow (YELLOW) 05/04/19 13:32 Urine Appearance Cloudy (CLEAR) 05/04/19 13:32 Urine pH 5.0 (5.0 - 8.0) 05/04/19 13:32 Ur Specific [place] 1.010 (1.000-1.030) 05/04/19 13:32 Urine Protein 2+ (NEGATIVE) 05/04/19 13:32 Urine Glucose (UA) 4+ (NEGATIVE) 05/04/19 13:32 Urine Ketones Negative (NEGATIVE) 05/04/19 13:32 Urine Occult Blood 1+ (NEGATIVE) 05/04/19 13:32 Urine Nitrite Positive (NEGATIVE) 05/04/19 13:32 Urine Bilirubin Negative (NEGATIVE) 05/04/19 13:32 Urine Urobilinogen Normal (NORMAL) 05/04/19 13:32 Ur Leukocyte Esterase 3+ (NEGATIVE) 05/04/19 13:32 Urine RBC 3-5 /HPF (0-3) A 05/04/19 13:32 Urine WBC Tntc /HPF (0-5) A 05/04/19 13:32 Ur Squamous Epith Cells Rare /HPF (NEGATIVE) 05/04/19 13:32 Urine Bacteria 2+ /HPF (NEGATIVE) 05/04/19 13:32 Ur Culture Indicated? Yes/culture set up 05/04/19 13:32 Plan (1) ESBL (extended spectrum beta-lactamase) producing bacteria infection: Status: Acute Plan: UrineCx:ESBL Enterobacter cloacae Meropenem(05/06/19) will need tx x7 days. (2) Sepsis: Status: Acute Qualifiers: Sepsis acute organ dysfunction status: unspecified Sepsis type: sepsis due to unspecified organism Qualified Code(s): A41.9 - Sepsis, unspecified organism Plan: -Leukocytosis resolved. Afebrile. -UrineCx:ESBL Enterobacter cloacae, SacralCx:Proteus mirabilis. BloodCx:NGTD -Abx(05/05/19):Vancomycin + Fortaz >changed to Meropenem(05/06/19) will need tx x7 days. -Continue to monitor (3) Cellulitis: Status: Acute Qualifiers: Laterality: unspecified laterality Site of cellulitis: extremity Site of cellulitis of extremity: lower extremity Qualified Code(s): L03.119 - Cellulitis of unspecified part of limb Plan: -Improved, continue abx (4) Sacral decubitus ulcer: Status: Acute Qualifiers: Pressure injury stage: stage 3 Qualified Code(s): L89.153 - Pressure ulcer of sacral region, stage 3 Plan: -Consult General Surgery-wound vac placed (5) Generalized weakness: Status: Acute Plan: Physical therapy (6) Anemia: Status: Acute Qualifiers: Anemia type: unspecified type Qualified Code(s): D64.9 - Anemia, unspecified Plan: Will get anemia panel today. Consider iron supplementation if low.
[2019-05-10] MEDS: LOVENOX INJ 40 MG SYR SC SCH (10:24)
[2019-05-10] MEDS: BENTYL CAP 10 MG PO SCH ×4 (10:25→20:19)
[2019-05-10] MEDS: PEPCID TAB 20 MG PO SCH (10:25)
[2019-05-10] MEDS: SYNTHROID 100 mcg TAB PO SCH (10:25)
[2019-05-10] MEDS: SINEMET (PLAIN) 10/100 MG PO SCH ×2 (10:25→20:19)
[2019-05-10] MEDS: COREG TAB 3.125 MG PO SCH ×2 (10:26→20:19)
[2019-05-10] MEDS: NYSTATIN POWDER TOP SCH (10:27)
[2019-05-10] MEDS: LEVEMIR SC SCH ×2 (10:27→20:19)
[2019-05-10] MEDS: ABILIFY PO SCH (10:28)
[2019-05-10] MEDS: PATIENT'S HOME MEDICATION (Dexlansoprazole [Dexilant] 60 MG) PO SCH (10:29)
[2019-05-10] MEDS ORDERED: NS 100 ML IV 100 ML IV ONE (14:05)
[2019-05-10] MEDS: SNACK - Diabetic Appropriate PO SCH (20:19)
[2019-05-10] MEDS: ZOCOR TAB 40 MG PO SCH (20:19)
[2019-05-10] MEDS: TRICOR TAB 160 MG PO SCH (20:19)
[2019-05-10] MEDS: CYMBALTA PO SCH (20:19)
[2019-05-11] MEDS: NYSTATIN POWDER TOP SCH ×3 (00:49→21:07)
[2019-05-11] MEDS: MERREM VIAL 1,000 MG in NS 100 ML IV + SPIKE MINIBAG* 100 ML IVP SCH ×3 (06:39→21:05)
--- NOTE | 2019-05-11 08:07 | PCM.PROG ---
Progress Note Progress Note for Day of Date of Exam: 05/11/19 Subjective Subjective: Pt is a 64 yo f admitted for cellulitis on lower extremities, sepsis, decubitus ulcer, and generalized weakness. Her initial labs; Wbc 10.8, Hgb 10.2, Cr 1.58, UA:+nitrite, leuk est, wbc and bacteria. CXR negative. She was started on Vancomycin+Fortaz. UrineCx:ESBL Enterobacter cloacae, Sacr alCx:Proteus mirabilis. IV abx changed to Meropenem(05/06/19). - Pt was able to do some physical therapy yesterday. Her labs showed iron deficiency anemia, will start on supplements. She will be completing her antibiotics course this weekend with anticipation of discharge home on Tuesday. Denies any other concerns or symptoms. Past Medical Family Social History Past Med/Fam/Surg Hx: No changes since H&P Allergies: Allergies oxycodone Allergy (Verified 08/10/18 16:18) Review of Systems ROS: No change since H&P Vital Signs and I&O's Vital Signs: Temperature 98.6 F Pulse Rate [Right Brachial] 74 Pulse Rate [Left Brachial] 92 Pulse Rate 76 Respiratory Rate 22 Blood Pressure [Left Arm] 167/78 Blood Pressure [Right Arm] 145/68 Blood Pressure 150/62 O2 Sat by Pulse Oximetry 100 Intake and Output: Intake & Output 05/08/19 05/09/19 05/10/19 05/11/19 23:59 23:59 23:59 23:59 Intake Total 1500 / 1500 2380 / 2380 2015 120 / 120 Output Total 2375 / 2375 375 / 375 1550 / 1550 575 / 575 Balance -875 / -875 2004 / 2004 466 / 466 -455 / -455 Physical Exam Oriented: Normal Eyes: Normal Ear: Normal Nose: Normal Respiratory: Normal Cardiovascular: Normal : Normal Auscultation: Bowel Sounds: Normal Tenderness: Normal Skin: Other (dermatitis skin color changes d/t venous insufficiency) Musculoskeletal: Normal Psychiatric: Normal Speech Pattern: Clear and Appropriate Laboratory and Diagnostics Result Diagrams: 05/10/19 04:46 05/10/19 04:46 Labs: 05/04/19 11:43 Blood Blood Culture - Final 05/04/19 11:35 Blood Blood Culture - Final 05/04/19 13:32 Urine,Catheterized Urine Culture - Final Enterobacter Cloacae 05/04/19 13:32 Sacral Gram Stain - Final 05/04/19 13:32 Sacral Wound Culture - Final Proteus Mirabilis Laboratory WBC 8.0 X10^3/uL (3.6-10.0) 05/10/19 04:46 RBC 3.40 X10^6/uL (3.5-5.4) L 05/10/19 04:46 Hgb 9.3 g/dL (12.0-16.0) L 05/10/19 04:46 Hct 28.2 % (36.0-47.0) L 05/10/19 04:46 MCV 82.9 fL (80.0-100.0) 05/10/19 04:46 MCH 27.3 pg (27.0-34.0) 05/10/19 04:46 MCHC 32.9 g/dL (33.0-35.0) L 05/10/19 04:46 RDW 14.8 % (11.6-16.5) 05/10/19 04:46 Plt Count 342 X10^3/uL (150.0-450.0) 05/10/19 04:46 Plt Count Comment Adequate (ADEQUATE) 05/05/19 04:49 MPV 7.3 fL (7.4-11.0) L 05/10/19 04:46 Neut % (Auto) 64.4 % (42.0-75.0) 05/10/19 04:46 Lymph % (Auto) 22.6 % (21.0-51.0) 05/10/19 04:46 [place] % (Auto) 7.9 % (0.0-13.0) 05/10/19 04:46 Eos % (Auto) 4.6 % (0.9-2.9) H 05/10/19 04:46 Baso % (Auto) 0.5 % (0.2-1.0) 05/10/19 04:46 Neut # (Auto) 5.1 x10^3/uL (2.2-4.8) H 05/10/19 04:46 Lymph # (Auto) 1.8 X10^3/uL (1.3-2.9) 05/10/19 04:46 [place] # (Auto) 0.6 x10^3/uL (0.3-0.8) 05/10/19 04:46 Eos # (Auto) 0.4 x10^3/uL (0.0-0.2) H 05/10/19 04:46 Baso # (Auto) 0.0 X10^3/uL (0.0-0.1) 05/10/19 04:46 Absolute Nucleated RBC 0.0 /100WBC 05/10/19 04:46 Total Counted 100 05/05/19 04:49 Neutrophils % (Manual) 88 % (39-76) H 05/05/19 04:49 Band Neutrophils % 4 % (0-10) 05/05/19 04:49 Lymphocytes % (Manual) 4 % (13-43) L 05/05/19 04:49 Monocytes % (Manual) 4 % (4-9) 05/05/19 04:49 Plt Morphology Comment Normal (NORMAL) 05/05/19 04:49 RBC Morphology Abnormal (NORMAL) A 05/05/19 04:49 Hypochromasia Slight A 05/05/19 04:49 Stomatocytes Present 05/05/19 04:49 Sodium 140 mmol/L (136-145) 05/10/19 04:46 Corrected Sodium 143 mmol/L (136-145) 05/10/19 04:46 Potassium 4.0 mmol/L (3.5-5.1) 05/10/19 04:46 Chloride 107 mmol/L (98-107) 05/10/19 04:46 Carbon Dioxide 27.4 mmol/L (21-32) 05/10/19 04:46 BUN 10 mg/dL (7-18) 05/10/19 04:46 Creatinine 0.97 mg/dL (0.55-1.02) 05/10/19 04:46 Est GFR (MDRD) Af Amer > 60 (>60) 05/10/19 04:46 Est GFR (MDRD) Non-Af > 60 (>60) 05/10/19 04:46 Glucose 214 mg/dL (65-99) H 05/10/19 04:46 POC Glucose (mg/dL) 109 mg/dL (65-99) H 05/11/19 05:23 Lactic Acid 1.1 mmol/L (0.4-2.0) 05/05/19 11:22 Calcium 8.7 mg/dL (8.5-10.1) 05/10/19 04:46 Corrected Calcium 9.6 mg/dL (8.5-10.1) 05/05/19 04:49 Magnesium 1.9 mg/dL (1.7-2.9) 05/06/19 05:00 Iron 33 ug/dL (50-175) L 05/10/19 04:46 Transferrin 220 mg/dL (202-364) 05/10/19 04:46 Ferritin 58 ng/mL (8-252) 05/10/19 04:46 Total Bilirubin 0.30 mg/dL (0.2-1.0) 05/05/19 04:49 AST 13 Units/L (15-37) L 05/05/19 04:49 ALT 7 Units/L (12-78) L 05/05/19 04:49 Alkaline Phosphatase 56 Units/L (46-116) 05/05/19 04:49 Creatine Kinase 127 Units/L (26-192) 05/04/19 23:55 CK-MB (CK-2) 1.1 ng/mL (0-4.0) 05/04/19 23:55 CK/CKMB % Calc 0.9 % (<4) 05/04/19 23:55 Troponin I 0.09 ng/mL (0-1.5) 05/04/19 23:55 Total Protein 6.5 g/dL (6.4-8.2) 05/05/19 04:49 Albumin 2.6 g/dL (3.4-5.0) L 05/05/19 04:49 Globulin 3.9 g/dL (2.5-4.5) 05/05/19 04:49 Albumin/Globulin Ratio 0.7 Ratio (1.1-2.1) L 05/05/19 04:49 Vitamin B12 1109 pg/mL (193-986) H 05/10/19 04:46 Folate 6.5 ng/mL (>8.6) L 05/10/19 04:46 Specimen Type Catherized urine 05/04/19 13:32 Urine Color Yellow (YELLOW) 05/04/19 13:32 Urine Appearance Cloudy (CLEAR) 05/04/19 13:32 Urine pH 5.0 (5.0 - 8.0) 05/04/19 13:32 Ur Specific [place] 1.010 (1.000-1.030) 05/04/19 13:32 Urine Protein 2+ (NEGATIVE) 05/04/19 13:32 Urine Glucose (UA) 4+ (NEGATIVE) 05/04/19 13:32 Urine Ketones Negative (NEGATIVE) 05/04/19 13:32 Urine Occult Blood 1+ (NEGATIVE) 05/04/19 13:32 Urine Nitrite Positive (NEGATIVE) 05/04/19 13:32 Urine Bilirubin Negative (NEGATIVE) 05/04/19 13:32 Urine Urobilinogen Normal (NORMAL) 05/04/19 13:32 Ur Leukocyte Esterase 3+ (NEGATIVE) 05/04/19 13:32 Urine RBC 3-5 /HPF (0-3) A 05/04/19 13:32 Urine WBC Tntc /HPF (0-5) A 05/04/19 13:32 Ur Squamous Epith Cells Rare /HPF (NEGATIVE) 05/04/19 13:32 Urine Bacteria 2+ /HPF (NEGATIVE) 05/04/19 13:32 Ur Culture Indicated? Yes/culture set up 05/04/19 13:32 Plan (1) ESBL (extended spectrum beta-lactamase) producing bacteria infection: Status: Acute Plan: UrineCx:ESBL Enterobacter cloacae Meropenem(05/06/19) will need tx x7 days, to be completed over the weekend. (2) Sepsis: Status: Acute Qualifiers: Sepsis type: sepsis due to unspecified organism Sepsis acute organ dysfunction status: unspecified Qualified Code(s): A41.9 - Sepsis, unspecified organism Plan: -Leukocytosis resolved. Afebrile. -UrineCx:ESBL Enterobacter cloacae, SacralCx:Proteus mirabilis. BloodCx:NGTD -Abx(05/05/19):Vancomycin + Fortaz >changed to Meropenem(05/06/19) will need tx x7 days. -Continue to monitor (3) Cellulitis: Status: Acute Qualifiers: Laterality: unspecified laterality Site of cellulitis: extremity Site of cellulitis of extremity: lower extremity Qualified Code(s): L03.119 - Cellulitis of unspecified part of limb Plan: -Improved, continue abx (4) Sacral decubitus ulcer: Status: Acute Qualifiers: Pressure injury stage: stage 3 Qualified Code(s): L89.153 - Pressure ulcer of sacral region, stage 3 Plan: -Consult General Surgery-wound vac placed (5) Generalized weakness: Status: Acute Plan: Physical therapy (6) Anemia: Status: Acute Qualifiers: Anemia type: iron deficiency Iron deficiency anemia type: inadequate dietary iron intake Qualified Code(s): D50.8 - Other iron deficiency anemias Plan: Iron deficiency anemia. Iron supplements.
[2019-05-11] MEDS: BENTYL CAP 10 MG PO SCH ×4 (09:29→21:05)
[2019-05-11] MEDS: ABILIFY PO SCH (09:29)
[2019-05-11] MEDS: COREG TAB 3.125 MG PO SCH ×2 (09:29→21:06)
[2019-05-11] MEDS: LEVEMIR SC SCH ×2 (09:30→21:00)
[2019-05-11] MEDS: PATIENT'S HOME MEDICATION (Dexlansoprazole [Dexilant] 60 MG) PO SCH (09:30)
[2019-05-11] MEDS: LOVENOX INJ 40 MG SYR SC SCH (09:30)
[2019-05-11] MEDS: PEPCID TAB 20 MG PO SCH (09:31)
[2019-05-11] MEDS: SYNTHROID 100 mcg TAB PO SCH (09:31)
[2019-05-11] MEDS: SINEMET (PLAIN) 10/100 MG PO SCH ×2 (09:31→21:07)
[2019-05-11] MEDS: MORPHINE SULFATE INJ 4 MG IVP PRN ×3 (09:32→23:08)
[2019-05-11] MEDS: COLACE CAP 100 MG PO SCH ×2 (10:52→21:00)
[2019-05-11] MEDS: FERROUS GLUCONATE PO SCH (18:19)
[2019-05-11] MEDS: SNACK - Diabetic Appropriate PO SCH (20:05)
[2019-05-11] MEDS: TRICOR TAB 160 MG PO SCH (21:00)
[2019-05-11] MEDS: ZOCOR TAB 40 MG PO SCH (21:08)
[2019-05-11] MEDS: XANAX PO PRN (22:00)
[2019-05-11] MEDS: NS 1000 ML 1,000 ML IV SCH ×2 (23:04)
[2019-05-11] MEDS: CYMBALTA PO SCH (23:06)
[2019-05-12] MEDS: MERREM VIAL 1,000 MG in NS 100 ML IV + SPIKE MINIBAG* 100 ML IVP SCH ×2 (06:31→14:19)
[2019-05-12] MEDS: MORPHINE SULFATE INJ 4 MG IVP PRN ×3 (06:32→21:33)
[2019-05-12] MEDS: LEVEMIR SC SCH ×2 (09:11→21:26)
[2019-05-12] MEDS: LOVENOX INJ 40 MG SYR SC SCH (09:11)
[2019-05-12] MEDS: PEPCID TAB 20 MG PO SCH (09:12)
[2019-05-12] MEDS: BENTYL CAP 10 MG PO SCH ×4 (09:12→21:20)
[2019-05-12] MEDS: SINEMET (PLAIN) 10/100 MG PO SCH ×2 (09:12→21:21)
[2019-05-12] MEDS: NYSTATIN POWDER TOP SCH ×2 (09:13→21:10)
[2019-05-12] MEDS: COREG TAB 3.125 MG PO SCH ×2 (09:13→21:20)
[2019-05-12] MEDS: SYNTHROID 100 mcg TAB PO SCH (09:13)
[2019-05-12] MEDS: COLACE CAP 100 MG PO SCH ×2 (09:15→21:21)
[2019-05-12] MEDS: PATIENT'S HOME MEDICATION (Dexlansoprazole [Dexilant] 60 MG) PO SCH (09:16)
[2019-05-12] MEDS: ABILIFY PO SCH (11:47)
[2019-05-12] MEDS: HumuLIN R SC PRN (12:00)
[2019-05-12] MEDS: NS 1000 ML 1,000 ML IV SCH (14:20)
[2019-05-12] MEDS: FERROUS GLUCONATE PO SCH (17:19)
[2019-05-12] MEDS: ZOCOR TAB 40 MG PO SCH (21:20)
[2019-05-12] MEDS: TRICOR TAB 160 MG PO SCH (21:21)
[2019-05-12] MEDS: CYMBALTA PO SCH (21:21)
[2019-05-12] MEDS: MERREM VIAL 1,000 MG in NS 100 ML IV 100 ML IVP SCH (21:22)
[2019-05-12] MEDS: XANAX PO PRN (21:32)
[2019-05-12] MEDS: SNACK - Diabetic Appropriate PO SCH (21:47)
[2019-05-13] MEDS: MERREM VIAL 1,000 MG in NS 100 ML IV 100 ML IVP SCH ×3 (05:42→21:02)
[2019-05-13] MEDS: NS 1000 ML 1,000 ML IV SCH ×2 (05:42→16:22)
[2019-05-13] MEDS: LOVENOX INJ 40 MG SYR SC SCH (08:51)
[2019-05-13] MEDS: PEPCID TAB 20 MG PO SCH (08:51)
[2019-05-13] MEDS: COLACE CAP 100 MG PO SCH ×2 (08:51→20:22)
[2019-05-13] MEDS: SYNTHROID 100 mcg TAB PO SCH (08:52)
[2019-05-13] MEDS: LEVEMIR SC SCH ×2 (08:52→20:23)
[2019-05-13] MEDS: BENTYL CAP 10 MG PO SCH ×4 (08:52→20:22)
[2019-05-13] MEDS: SINEMET (PLAIN) 10/100 MG PO SCH ×2 (08:52→20:22)
[2019-05-13] MEDS: COREG TAB 3.125 MG PO SCH ×2 (08:52→20:23)
[2019-05-13] MEDS: NYSTATIN POWDER TOP SCH ×2 (08:53→20:53)
[2019-05-13] MEDS: ABILIFY PO SCH (08:53)
[2019-05-13] MEDS: PATIENT'S HOME MEDICATION (Dexlansoprazole [Dexilant] 60 MG) PO SCH (08:53)
[2019-05-13] MEDS ORDERED: LOVENOX INJ 40 MG SYR SC SCH (12:00)
[2019-05-13] MEDS: LOVENOX INJ 30 MG SYR SC SCH (12:30)
[2019-05-13] MEDS: FERROUS GLUCONATE PO SCH (16:59)
[2019-05-13] MEDS: ZOCOR TAB 40 MG PO SCH (20:22)
[2019-05-13] MEDS: XANAX PO PRN (20:23)
[2019-05-13] MEDS: CYMBALTA PO SCH (20:23)
[2019-05-13] MEDS: TRICOR TAB 160 MG PO SCH (20:23)
[2019-05-13] MEDS: SNACK - Diabetic Appropriate PO SCH (20:53)
[2019-05-13] MEDS: MORPHINE SULFATE INJ 4 MG IVP PRN (21:01)
[2019-05-14 04:47] VITALS: BP 169/77
[2019-05-14] MEDS: MERREM VIAL 1,000 MG in NS 100 ML IV 100 ML IVP SCH ×2 (05:05→14:00)
[2019-05-14 05:10] LABS: BASOPHILS % (AUTO) 0.5 % (0.2-1.0); EOSINOPHILS # (AUTO) 0.4 x10^3/uL (0.0-0.2); EOSINOPHILS % (AUTO) 5.7 % (0.9-2.9); HEMATOCRIT 28.5 % (36.0-47.0); HEMOGLOBIN 9.4 g/dL (12.0-16.0); LYMPHOCYTES # (AUTO) 1.7 X10^3/uL (1.3-2.9); LYMPHOCYTES % (AUTO) 22.5 % (21.0-51.0); MEAN CORPUSCULAR HGB CONC 32.9 g/dL (33.0-35.0); MEAN PLATELET VOLUME 7.4 fL (7.4-11.0); MONOCYTES # (AUTO) 0.5 x10^3/uL (0.3-0.8); MONOCYTES % (AUTO) 6.9 % (0.0-13.0); NEUTROPHILS # (AUTO) 4.9 x10^3/uL (2.2-4.8); NEUTROPHILS % (AUTO) 64.4 % (42.0-75.0); PLATELET COUNT 355 X10^3/uL (150.0-450.0); RED BLOOD COUNT 3.48 X10^6/uL (3.5-5.4); RED CELL DISTRIBUTION WIDTH 15.2 % (11.6-16.5); WHITE BLOOD COUNT 7.6 X10^3/uL (3.6-10.0)
[2019-05-14 05:26] LABS: ALANINE AMINOTRANSFERASE < 6 Units/L (12-78); ALBUMIN 2.1 g/dL (3.4-5.0); ALKALINE PHOSPHATASE 55 Units/L (46-116); ASPARTATE AMINO TRANSFERASE 12 Units/L (15-37); BLOOD UREA NITROGEN 14 mg/dL (7-18); CALCIUM 8.3 mg/dL (8.5-10.1); CARBON DIOXIDE 27.8 mmol/L (21-32); CHLORIDE 107 mmol/L (98-107); COR CA(FOR HYPOALB) 9.8 mg/dL (8.5-10.1); COR NA(FOR HYPERGLY) 142 mmol/L (136-145); CREATININE 0.84 mg/dL (0.55-1.02); SODIUM 141 mmol/L (136-145); TOTAL PROTEIN 5.8 g/dL (6.4-8.2); eGFR NON BLACK RACES > 60 (>60)
[2019-05-14] MEDS: NS 1000 ML 1,000 ML IV SCH (06:23)
--- NOTE | 2019-05-14 08:13 | W.DIS.FURT ---
Summary of Discharge Discharge Summary of Date Date of Exam: 05/14/19 Admission Date Date of Admission: 05/04/19 Admission Diagnosis Hospital Course: Pt is a 64 yo f admitted for cellulitis on lower extremities, sepsis, decubitus ulcer, and generalized weakness. Her initial labs; Wbc 10.8, Hgb 10.2, Cr 1.58, UA:+nitrite, leuk est, wbc and bacteria. CXR negative. She was started on Vancomycin+Fortaz. UrineCx:ESBL Enterobacter cloacae, SacralCx:Proteus mirabilis. IV abx changed to Meropenem(05/06/19), which she received for 7 days. Pt stable for discharge home. Will follow up in 1-2 weeks with pcp. She is to continue using wound vac on sacral decubitus ulcer. (1) ESBL (extended spectrum beta-lactamase) producing bacteria infection: UrineCx:ESBL Enterobacter cloacae Meropenem(05/06/19) x 7 days. Completed course. (2) Sepsis: -Leukocytosis resolved. Afebrile. -UrineCx:ESBL Enterobacter cloacae, SacralCx:Proteus mirabilis. BloodCx:NGTD -Abx(05/05/19):Vancomycin + Fortaz >changed to Meropenem(05/06/19) (3) Cellulitis: bilateral lower extremities, resolved (4) Sacral decubitus ulcer, stage 3: Consulted General Surgery-wound vac placed and to be continued outpt. (5) Generalized weakness (6) Anemia: Iron deficiency anemia. Iron supplements. Vital Signs: Vital Signs (72 hours) 05/11/19 09:32 05/11/19 10:02 05/11/19 12:00 Temperature 97.8 F Pulse Rate [Right Brachial] 90 Respiratory Rate 20 20 18 Blood Pressure [Right Arm] 158/77 O2 Sat by Pulse Oximetry 97 05/11/19 15:38 05/11/19 16:00 05/11/19 16:08 Temperature 98.5 F Pulse Rate [Right Brachial] 83 Respiratory Rate 18 18 17 Blood Pressure [Right Arm] 143/71 O2 Sat by Pulse Oximetry 98 05/11/19 20:00 05/11/19 23:08 05/11/19 23:38 Temperature 98.5 F Pulse Rate [Right Brachial] 81 Respiratory Rate 16 18 17 Blood Pressure [Right Arm] 185/75 O2 Sat by Pulse Oximetry 98 05/12/19 00:00 05/12/19 04:00 05/12/19 06:32 Temperature 97.8 F 98 F Pulse Rate [Right Brachial] 75 74 Respiratory Rate 26 H 22 18 Blood Pressure [Right Arm] 143/62 141/68 O2 Sat by Pulse Oximetry 97 99 05/12/19 07:02 05/12/19 08:00 05/12/19 12:00 Temperature 97.8 F 98.1 F Pulse Rate [Right Brachial] 73 75 Respiratory Rate 19 20 20 Blood Pressure [Right Arm] 134/65 154/70 O2 Sat by Pulse Oximetry 99 98 05/12/19 14:26 05/12/19 14:56 05/12/19 16:00 Temperature 98.0 F Pulse Rate [Right Brachial] 78 Respiratory Rate 17 19 20 Blood Pressure [Right Arm] 183/81 O2 Sat by Pulse Oximetry 98 05/12/19 20:00 05/12/19 21:33 05/12/19 22:03 Temperature 98.5 F Pulse Rate [Right Brachial] 76 Respiratory Rate 20 19 19 Blood Pressure [Right Arm] 144/69 O2 Sat by Pulse Oximetry 98 05/13/19 00:00 05/13/19 04:00 05/13/19 08:00 Temperature 98.1 F 97.7 F 98.0 F Pulse Rate [Right Brachial] 77 67 72 Respiratory Rate 18 13 20 Blood Pressure [Right Arm] 147/66 137/63 139/75 O2 Sat by Pulse Oximetry 99 98 99 05/13/19 12:00 05/13/19 16:00 05/13/19 20:00 Temperature 97.9 F 98.1 F 98 F Pulse Rate [Right Brachial] 76 78 77 Respiratory Rate 20 20 18 Blood Pressure [Right Arm] 141/67 138/69 O2 Sat by Pulse Oximetry 99 100 99 05/13/19 21:01 05/13/19 21:31 05/14/19 00:00 Temperature 97.7 F Pulse Rate [Right Brachial] 75 Respiratory Rate 19 19 16 Blood Pressure [Right Arm] 169/72 O2 Sat by Pulse Oximetry 100 05/14/19 04:00 Temperature 97.7 F Pulse Rate [Right Brachial] 72 Respiratory Rate 12 Blood Pressure [Right Arm] 169/77 O2 Sat by Pulse Oximetry 97 Labs: Laboratory Last Values WBC 7.6 X10^3/uL (3.6-10.0) 05/14/19 04:16 RBC 3.48 X10^6/uL (3.5-5.4) L 05/14/19 04:16 Hgb 9.4 g/dL (12.0-16.0) L 05/14/19 04:16 Hct 28.5 % (36.0-47.0) L 05/14/19 04:16 MCV 82.0 fL (80.0-100.0) 05/14/19 04:16 MCH 27.0 pg (27.0-34.0) 05/14/19 04:16 MCHC 32.9 g/dL (33.0-35.0) L 05/14/19 04:16 RDW 15.2 % (11.6-16.5) 05/14/19 04:16 Plt Count 355 X10^3/uL (150.0-450.0) 05/14/19 04:16 Plt Count Comment Adequate (ADEQUATE) 05/05/19 04:49 MPV 7.4 fL (7.4-11.0) 05/14/19 04:16 Neut % (Auto) 64.4 % (42.0-75.0) 05/14/19 04:16 Lymph % (Auto) 22.5 % (21.0-51.0) 05/14/19 04:16 [place] % (Auto) 6.9 % (0.0-13.0) 05/14/19 04:16 Eos % (Auto) 5.7 % (0.9-2.9) H 05/14/19 04:16 Baso % (Auto) 0.5 % (0.2-1.0) 05/14/19 04:16 Neut # (Auto) 4.9 x10^3/uL (2.2-4.8) H 05/14/19 04:16 Lymph # (Auto) 1.7 X10^3/uL (1.3-2.9) 05/14/19 04:16 [place] # (Auto) 0.5 x10^3/uL (0.3-0.8) 05/14/19 04:16 Eos # (Auto) 0.4 x10^3/uL (0.0-0.2) H 05/14/19 04:16 Baso # (Auto) 0.0 X10^3/uL (0.0-0.1) 05/14/19 04:16 Absolute Nucleated RBC 0.0 /100WBC 05/14/19 04:16 Total Counted 100 05/05/19 04:49 Neutrophils % (Manual) 88 % (39-76) H 05/05/19 04:49 Band Neutrophils % 4 % (0-10) 05/05/19 04:49 Lymphocytes % (Manual) 4 % (13-43) L 05/05/19 04:49 Monocytes % (Manual) 4 % (4-9) 05/05/19 04:49 Plt Morphology Comment Normal (NORMAL) 05/05/19 04:49 RBC Morphology Abnormal (NORMAL) A 05/05/19 04:49 Hypochromasia Slight A 05/05/19 04:49 Stomatocytes Present 05/05/19 04:49 Sodium 141 mmol/L (136-145) 05/14/19 04:16 Corrected Sodium 142 mmol/L (136-145) 05/14/19 04:16 Potassium 3.9 mmol/L (3.5-5.1) 05/14/19 04:16 Chloride 107 mmol/L (98-107) 05/14/19 04:16 Carbon Dioxide 27.8 mmol/L (21-32) 05/14/19 04:16 BUN 14 mg/dL (7-18) 05/14/19 04:16 Creatinine 0.84 mg/dL (0.55-1.02) 05/14/19 04:16 Est GFR (MDRD) Af Amer > 60 (>60) 05/14/19 04:16 Est GFR (MDRD) Non-Af > 60 (>60) 05/14/19 04:16 Glucose 131 mg/dL (65-99) H 05/14/19 04:16 POC Glucose (mg/dL) 123 mg/dL (65-99) H 05/14/19 05:32 Lactic Acid 1.1 mmol/L (0.4-2.0) 05/05/19 11:22 Calcium 8.3 mg/dL (8.5-10.1) L 05/14/19 04:16 Corrected Calcium 9.8 mg/dL (8.5-10.1) 05/14/19 04:16 Magnesium 1.9 mg/dL (1.7-2.9) 05/06/19 05:00 Iron 33 ug/dL (50-175) L 05/10/19 04:46 Transferrin 220 mg/dL (202-364) 05/10/19 04:46 Ferritin 58 ng/mL (8-252) 05/10/19 04:46 Total Bilirubin 0.20 mg/dL (0.2-1.0) 05/14/19 04:16 AST 12 Units/L (15-37) L 05/14/19 04:16 ALT < 6 Units/L (12-78) L 05/14/19 04:16 Alkaline Phosphatase 55 Units/L (46-116) 05/14/19 04:16 Creatine Kinase 127 Units/L (26-192) 05/04/19 23:55 CK-MB (CK-2) 1.1 ng/mL (0-4.0) 05/04/19 23:55 CK/CKMB % Calc 0.9 % (<4) 05/04/19 23:55 Troponin I 0.09 ng/mL (0-1.5) 05/04/19 23:55 Total Protein 5.8 g/dL (6.4-8.2) L 05/14/19 04:16 Albumin 2.1 g/dL (3.4-5.0) L 05/14/19 04:16 Globulin 3.7 g/dL (2.5-4.5) 05/14/19 04:16 Albumin/Globulin Ratio 0.6 Ratio (1.1-2.1) L 05/14/19 04:16 Vitamin B12 1109 pg/mL (193-986) H 05/10/19 04:46 Folate 6.5 ng/mL (>8.6) L 05/10/19 04:46 Specimen Type Catherized urine 05/04/19 13:32 Urine Color Yellow (YELLOW) 05/04/19 13:32 Urine Appearance Cloudy (CLEAR) 05/04/19 13:32 Urine pH 5.0 (5.0 - 8.0) 05/04/19 13:32 Ur Specific [place] 1.010 (1.000-1.030) 05/04/19 13:32 Urine Protein 2+ (NEGATIVE) 05/04/19 13:32 Urine Glucose (UA) 4+ (NEGATIVE) 05/04/19 13:32 Urine Ketones Negative (NEGATIVE) 05/04/19 13:32 Urine Occult Blood 1+ (NEGATIVE) 05/04/19 13:32 Urine Nitrite Positive (NEGATIVE) 05/04/19 13:32 Urine Bilirubin Negative (NEGATIVE) 05/04/19 13:32 Urine Urobilinogen Normal (NORMAL) 05/04/19 13:32 Ur Leukocyte Esterase 3+ (NEGATIVE) 05/04/19 13:32 Urine RBC 3-5 /HPF (0-3) A 05/04/19 13:32 Urine WBC Tntc /HPF (0-5) A 05/04/19 13:32 Ur Squamous Epith Cells Rare /HPF (NEGATIVE) 05/04/19 13:32 Urine Bacteria 2+ /HPF (NEGATIVE) 05/04/19 13:32 Ur Culture Indicated? Yes/culture set up 05/04/19 13:32 Reason For Visit: CELLULITIS LOWER EXT, INFECTED Discharge Date Discharge Date: 05/14/19 Discharge Diagnosis All Active Problems (Updated 05/11/19 @ 08:07 by mArik Boyd) Anemia (Acute) ESBL (extended spectrum beta-lactamase) producing bacteria infection (Acute) Sacral decubitus ulcer (Acute) Generalized weakness (Acute) Cellulitis (Acute) SOB (shortness of breath) (Acute) Sepsis (Acute) CHF (congestive heart failure) (Chronic) Depression (Chronic) History of angina (Chronic) History of kidney stones (Chronic) Degenerative joint disease of left hip (Chronic) Plan of Treatment: Continue with present treatment and follow up plan. Pt is to keep follow up appointment as instructed and take medications as ordered. Discharge Medications Discharge Medications: oxycodone Allergy (Verified 08/10/18 16:18) New Prescriptions alprazolam 1 mg PO DAILY PRN 15 Days #30 tab MDD 1mg 05/14/19 [Rx] aripiprazole 30 mg PO DAILY 30 Days #30 tab 05/14/19 [Rx] carbidopa-levodopa 1 tab PO BID 30 Days #60 tab 05/14/19 [Rx] carbidopa-levodopa 1 tab PO BID PRN #0 tab 05/14/19 [Rx] carvedilol 3.125 mg PO BID 30 Days #60 tab 05/14/19 [Rx] dexlansoprazole [Dexilant] 60 mg PO DAILY 30 Days #30 tab 05/14/19 [Rx] dicyclomine 20 mg PO QID 30 Days #240 cap 05/14/19 [Rx] docusate sodium 100 mg PO BID 30 Days #60 cap 05/14/19 [Rx] duloxetine 30 mg PO HS 30 Days #30 cap 05/14/19 [Rx] famotidine 40 mg PO DAILY 30 Days #30 tab 05/14/19 [Rx] fenofibrate 160 mg PO HS 30 Days #30 tab 05/14/19 [Rx] ferrous gluconate 324 mg PO DAILYPC 30 Days #30 tab 05/14/19 [Rx] insulin detemir U-100 [Levemir U-100 Insulin] 36 units SC BID 30 Days #1 box 05/14/19 [Rx] levothyroxine 100 mcg PO DAILY PRN #0 tab 05/14/19 [Rx] levothyroxine [Synthroid] 100 mcg PO DAILY 30 Days #30 tab 05/14/19 [Rx] nystatin 1 applic TOP BID 30 Days #15 g 05/14/19 [Rx] simvastatin 40 mg PO HS 30 Days #30 tab 05/14/19 [Rx] Follow up and Referral Follow Up: 1 Week Discharge Disposition Assessment: Patient stable no acute distress noted at time of discharge. Discharge Disposition: Home
[2019-05-14] MEDS: SINEMET (PLAIN) 10/100 MG PO SCH (08:43)
[2019-05-14] MEDS: PEPCID TAB 20 MG PO SCH (08:43)
[2019-05-14] MEDS: SYNTHROID 100 mcg TAB PO SCH (08:43)
[2019-05-14] MEDS: BENTYL CAP 10 MG PO SCH ×2 (08:43→13:00)
[2019-05-14] MEDS: COLACE CAP 100 MG PO SCH (08:44)
[2019-05-14] MEDS: COREG TAB 3.125 MG PO SCH (08:44)
[2019-05-14] MEDS: LOVENOX INJ 30 MG SYR SC SCH (08:45)
[2019-05-14] MEDS: PATIENT'S HOME MEDICATION (Dexlansoprazole [Dexilant] 60 MG) PO SCH (08:45)
[2019-05-14] MEDS: NYSTATIN POWDER TOP SCH (08:46)
[2019-05-14] MEDS: LEVEMIR SC SCH (08:47)
[2019-05-14] MEDS: MORPHINE SULFATE INJ 4 MG IVP PRN (10:10)
[2019-05-14] MEDS: ABILIFY PO SCH (10:26)
== END 2019-05-14 15:55 | disposition home health service (06) | DRG 871 ==
LOC: ER 09:55 → MED/SURG 16:11
PROVIDERS: ADMIT Family Medicine; ATTEND Family Medicine
CPT/HCPCS: 36415; 51702; 71010; 71045; 80048; 80053; 81001; 82550; 82553; 82607; 82728; 82746; 83540; 83605; 83735; 84466; 84484; 85025; 87040; 87070; 87075; 87077; 87086; 87088; 87186; 87205; 93005; 94760; 96365; 96374; 96375; 97110; 97112; 97116; 97162; 97530; 99284; A4222; J0400; J0713; J1642; J1650; J1815; J2185; J2270; J3370; J3490; J7030; J7040; J7050; J7060

== ENCOUNTER 2019-06-18 12:12 | Observation (INO) ==
[2019-06-18 12:20] VITALS: BMI 52.4
--- NOTE | 2019-06-18 12:29 | DR.AMS ---
HPI - Time Seen Time seen: 14:10 - PCP Primary Care Physician: ross perez - HPI Comment HPI Comment: Pt is a 64y/o WF presents to the ER via EMS due to AMS noted by visiting nurses. Pt denies any F/C/N/V/D. Pt states that yesterday she "didn't feel good" for most of the day but "feels OK" today. Pt states that she has taken all meds as Rx. - Complaint Chief Complaint:: home health was at her home and called 911 and stated she was confused and probably septic. patient stated she fell this morning and hit the front of her head. pt does have a knot on her front of her forhead. - Reviewed Nurses Notes Reviewed: Yes - Source History Provided: Patient, EMS - Mode of Arrival Mode of Arrival: Ambulatory - Timing Onset of Chief Complaint: 06/18/19 Came On: Gradually - Duration Duration: Since Onset (Onset of symptoms noted today by visiting nurse) - Associated Signs and Symptoms Associated Signs and Symptoms: None PMH - PMH Past Medical History: Yes Past Medical History: Angina, Dyslipidemia, Diabetes, Depression, Anxiety, Hypothyroidism, COPD, Asthma, GERD, Arthritis, Kidney Stones, Headaches Past Surgical History: Yes Surgical History: Abdominal Surgery, Bowel Resection, Hysterectomy, Lithotripsy, Ortho Surgery, Tonsillectomy - Family History History of Family Medical Conditions: Yes Family Medical History: Diabetes Mellitus, [place] - Social History Does patient currently use any type of tobacco product: No Have you used tobacco products in the last 12 months: No Type of Tobacco Use: None Does any household member use tobacco: No Alcohol Use: None Do you use any recreational Drugs:: No Lives With: Family Lives Where: Home - infectious screening In the last 2 months have you had wt loss of >10#?: NO Have you had fever, night sweats or hemotysis?: No Have you traveled outside the country in the last 6 months?: No Isolation: Standard ROS - Review of Systems Constitutional: No Symptoms Reported, See HPI Eyes: No Symptoms Reported ENTM: No Symptoms Reported Respiratoy: No Symptoms Reported Cardiovascular: No Symptoms Reported Gastrointestinal/Abdominal: No Symptoms Reported Genitourinary: No Symptoms Reported Neurological: No Symptoms Reported Musculoskeletal: No Symptoms Reported Integumentary: No Symptoms Reported Hematologic/Lymphatic: No Symptoms Reported Endocrine: No Symptoms Reported Psychiatric: No Symptoms Reported All Other Systems: Reviewed and Negative PE - General Limitations: Physical Limitation (walks with walker) General Appearance: Alert - Head Head Exam: Normal Inspection - Eyes Eye exam: Normal Appearance Pupils: Regular, Round: Bilateral - ENT External Ear Exam: Normal External Inspection Nose Exam: Normal Nose Exam Mouth Exam: Normal Inspection - Neck Neck Exam: Normal Inspection - Respiratory Respiratory Exam: Normal Lung Sounds Bilat Respiratory Exam: Bilateral Clear to Auscultation - Cardiovascular Cardiovascular Exam: Regular Rate, Normal Rhythm - Abdominal Exam Abdominal Exam: Normal Inspection (morbidly obese) - Extremities Extremities Exam: Normal Inspection (2+ pitting edema) - Back Back Exam: Normal Inspection - Neurological Neurological Exam: Alert, Oriented X3, CN II-XII Intact Patient Oriented To: Person, Place, Time Speech: Fluid Speech - Psychological Psychiatric Exam: Normal Affect - Skin Skin Exam: Warm - Vitals Vital Signs: Temp Pulse Resp BP BP BP Pulse Ox 06/18/19 12:15 98.6 F 97 H 16 146/77 98 05/14/19 12:00 171/77 05/14/19 08:00 169/77 Course - Reevaluation 1st: Improved ROR - Labs Reviewed Result Diagrams: 06/18/19 12:53 06/18/19 12:53 - Labs Reviewed Laboratory: WBC 12.6 X10^3/uL (3.6-10.0) H 06/18/19 12:53 RBC 3.72 X10^6/uL (3.5-5.4) 06/18/19 12:53 Hgb 9.6 g/dL (12.0-16.0) L 06/18/19 12:53 Hct 30.1 % (36.0-47.0) L 06/18/19 12:53 MCV 80.8 fL (80.0-100.0) 06/18/19 12:53 MCH 25.9 pg (27.0-34.0) L 06/18/19 12:53 MCHC 32.0 g/dL (33.0-35.0) L 06/18/19 12:53 RDW 15.4 % (11.6-16.5) 06/18/19 12:53 Plt Count 393 X10^3/uL (150.0-450.0) 06/18/19 12:53 Plt Count Comment Adequate (ADEQUATE) 06/18/19 12:53 MPV 7.7 fL (7.4-11.0) 06/18/19 12:53 Neut % (Auto) 74.5 % (42.0-75.0) 06/18/19 12:53 Lymph % (Auto) 14.1 % (21.0-51.0) L 06/18/19 12:53 [place] % (Auto) 9.5 % (0.0-13.0) 06/18/19 12:53 Eos % (Auto) 1.4 % (0.9-2.9) 06/18/19 12:53 Baso % (Auto) 0.5 % (0.2-1.0) 06/18/19 12:53 Neut # (Auto) 9.4 x10^3/uL (2.2-4.8) H 06/18/19 12:53 Lymph # (Auto) 1.8 X10^3/uL (1.3-2.9) 06/18/19 12:53 [place] # (Auto) 1.2 x10^3/uL (0.3-0.8) H 06/18/19 12:53 Eos # (Auto) 0.2 x10^3/uL (0.0-0.2) 06/18/19 12:53 Baso # (Auto) 0.1 X10^3/uL (0.0-0.1) 06/18/19 12:53 Absolute Nucleated RBC 0.0 /100WBC 06/18/19 12:53 Plt Morphology Comment Normal (NORMAL) 06/18/19 12:53 RBC Morphology Abnormal (NORMAL) A 06/18/19 12:53 Hypochromasia Slight A 06/18/19 12:53 Sodium 137 mmol/L (136-145) 06/18/19 12:53 Corrected Sodium 142 mmol/L (136-145) 06/18/19 12:53 Potassium 4.6 mmol/L (3.5-5.1) 06/18/19 12:53 Chloride 100 mmol/L (98-107) 06/18/19 12:53 Carbon Dioxide 30.3 mmol/L (21-32) 06/18/19 12:53 BUN 45 mg/dL (7-18) H 06/18/19 12:53 Creatinine 1.42 mg/dL (0.55-1.02) H 06/18/19 12:53 Est GFR (MDRD) Af Amer 48 (>60) L 06/18/19 12:53 Est GFR (MDRD) Non-Af 39 (>60) L 06/18/19 12:53 Glucose 301 mg/dL (65-99) H 06/18/19 12:53 Calcium 8.9 mg/dL (8.5-10.1) 06/18/19 12:53 Corrected Calcium 10.1 mg/dL (8.5-10.1) 06/18/19 12:53 Total Bilirubin 0.20 mg/dL (0.2-1.0) 06/18/19 12:53 AST 12 Units/L (15-37) L 06/18/19 12:53 ALT 11 Units/L (12-78) L 06/18/19 12:53 Alkaline Phosphatase 96 Units/L (46-116) 06/18/19 12:53 Total Protein 6.7 g/dL (6.4-8.2) 06/18/19 12:53 Albumin 2.5 g/dL (3.4-5.0) L 06/18/19 12:53 Globulin 4.2 g/dL (2.5-4.5) 06/18/19 12:53 Albumin/Globulin Ratio 0.6 Ratio (1.1-2.1) L 06/18/19 12:53 Specimen Type Catherized urine 06/18/19 14:03 Urine Color Yellow (YELLOW) 06/18/19 14:03 Urine Appearance Cloudy (CLEAR) 06/18/19 14:03 Urine pH 5.0 (5.0 - 8.0) 06/18/19 14:03 Ur Specific [place] 1.015 (1.000-1.030) 06/18/19 14:03 Urine Protein 2+ (NEGATIVE) 06/18/19 14:03 Urine Glucose (UA) 4+ (NEGATIVE) 06/18/19 14:03 Urine Ketones Negative (NEGATIVE) 06/18/19 14:03 Urine Occult Blood 2+ (NEGATIVE) 06/18/19 14:03 Urine Nitrite Negative (NEGATIVE) 06/18/19 14:03 Urine Bilirubin Negative (NEGATIVE) 06/18/19 14:03 Urine Urobilinogen Normal (NORMAL) 06/18/19 14:03 Ur Leukocyte Esterase 3+ (NEGATIVE) 06/18/19 14:03 Urine RBC 10-20 /HPF (0-3) A 06/18/19 14:03 Urine WBC Tntc /HPF (0-5) A 06/18/19 14:03 Ur Squamous Epith Cells Few /HPF (NEGATIVE) 06/18/19 14:03 Urine Bacteria Trace /HPF (NEGATIVE) 06/18/19 14:03 Urine Yeast Many /HPF (NEGATIVE) 06/18/19 14:03 Ur Culture Indicated? Yes/culture set up 06/18/19 14:03 Influenza Type A (PCR) Negative (NEGATIVE) 06/18/19 13:49 Influenza Type B (PCR) Negative (NEGATIVE) 06/18/19 13:49 Opioid - Opioid Risk Tool Age ([place] Luis box if 16-45): No History of Preadolescent Sexual Abuse: No Total: 0 Total Score Risk Category: Low Risk - Diagnosis Discharge Problem: Acute renal failure, Dehydration, AMS (altered mental status), UTI (urinary tract infection) - Discharge Plan Disposition: 09 ADMITTED INPATIENT Condition: Stable - Follow ups/Referrals Follow ups/Referrals: NFD,None [Primary Care Provider] - 3 days - Instructions Additional Instructions: Admit to MD Cherry
[2019-06-18 13:11] LABS: BASOPHILS # (AUTO) 0.1 X10^3/uL (0.0-0.1); BASOPHILS % (AUTO) 0.5 % (0.2-1.0); EOSINOPHILS # (AUTO) 0.2 x10^3/uL (0.0-0.2); EOSINOPHILS % (AUTO) 1.4 % (0.9-2.9); HEMATOCRIT 30.1 % (36.0-47.0); HEMOGLOBIN 9.6 g/dL (12.0-16.0); LYMPHOCYTES # (AUTO) 1.8 X10^3/uL (1.3-2.9); LYMPHOCYTES % (AUTO) 14.1 % (21.0-51.0); MEAN CORPUSCULAR HEMOGLOBIN 25.9 pg (27.0-34.0); MEAN CORPUSCULAR VOLUME 80.8 fL (80.0-100.0); MEAN PLATELET VOLUME 7.7 fL (7.4-11.0); MONOCYTES # (AUTO) 1.2 x10^3/uL (0.3-0.8); MONOCYTES % (AUTO) 9.5 % (0.0-13.0); NEUTROPHILS # (AUTO) 9.4 x10^3/uL (2.2-4.8); NEUTROPHILS % (AUTO) 74.5 % (42.0-75.0); PLATELET COUNT 393 X10^3/uL (150.0-450.0); RED BLOOD COUNT 3.72 X10^6/uL (3.5-5.4); RED CELL DISTRIBUTION WIDTH 15.4 % (11.6-16.5); WHITE BLOOD COUNT 12.6 X10^3/uL (3.6-10.0)
[2019-06-18 13:23] LABS: ALBUMIN 2.5 g/dL (3.4-5.0); CALCIUM 8.9 mg/dL (8.5-10.1); CARBON DIOXIDE 30.3 mmol/L (21-32); COR CA(FOR HYPOALB) 10.1 mg/dL (8.5-10.1); CREATININE 1.42 mg/dL (0.55-1.02); TOTAL PROTEIN 6.7 g/dL (6.4-8.2)
--- NOTE | 2019-06-18 13:25 | CT ---
HISTORY: [Altered mental status]Noncontrast head CT examination.Comparison: [None].Technique:Multiple axial images of the brain were obtained from the skull base to the vertex without administration of IV contrast.Findings: There is moderate sulcal and cisternal prominence as well as atherosclerotic change in the proximal intracranial carotid and vertebral arteries, which is not out of proportion to the patient's stated age. There is diffuse CT density alteration seen in the periventricular white matter of the high and mid-convexity, which is likely in the setting of small vessel disease and not out of proportion to the patient's stated age. There is no pathologic ventricular dilatation or CT imaging evidence for hydrocephalus or herniation syndrome. No midline shift is evident. No acute intraparenchymal hemorrhage or mass can be identified. No extra-axial fluid collections are seen. No alteration in the attenuation of the brain parenchyma can be identified to suggest acute or subacute ischemic change. However, if clinical symptoms are concerning for an acute CVA, then follow-up MRI with DWI sequencing is recommended. The extracranial structures show bilateral frontal/forehead soft tissue swelling.IMPRESSION:1. [No acute intracranial process or bleed identified].2. [Age-appropriate intra-cranial changes of advancing age].Electronically signed by: GALLITO HAND III (Jun 18, 2019 13:24:38)
[2019-06-18 13:53] LABS: HYPOCHROMASIA SLIGHT; PLATELET MORPHOLOGY COMMENT NORMAL (NORMAL)
--- NOTE | 2019-06-18 14:19 | RAD ---
HISTORYChest pain and dyspnea.STUDYSingle portable view of the chestCOMPARLima [facility] radiograph dated August 11, 2018FINDINGSThe trachea is midline. The cardiac silhouette is enlarged. There is a stable left-sided CVL in place. Background changes of COPD remain. The lungs are clear without focal infiltrate or effusion. The bony thorax is stable from prior.IMPRESSIONEnlarged cardiomediastinal silhouette without acute cardiopulmonary disease or changes seen.Electronically signed by: GALLITO HAND III (Jun 18, 2019 14:17:23)
[2019-06-18 14:21] LABS: BILIRUBIN,URINE NEGATIVE (NEGATIVE); BLOOD/HEMOGLOBIN,URINE 2+ (NEGATIVE); GLUCOSE, URINE 4+ (NEGATIVE); KETONES,URINE NEGATIVE (NEGATIVE); LEUKOCYTE ESTERASE ,URINE 3+ (NEGATIVE); NITRITES,URINE NEGATIVE (NEGATIVE); PROTEIN,URINE 2+ (NEGATIVE); UROBILINOGEN,URINE NORMAL (NORMAL)
[2019-06-18 14:32] LABS: APPEARANCE,URINE CLOUDY (CLEAR); BACTERIA,URINE TRACE /HPF (NEGATIVE); COLOR,URINE YELLOW (YELLOW); SQUAMOUS EPITHELIAL CELL,UR FEW /HPF (NEGATIVE)
[2019-06-18] MEDS ORDERED: NS 1000 ML 1,000 ML IV ONE (14:32)
[2019-06-18 14:33] LABS: YEAST,URINE MANY /HPF (NEGATIVE)
[2019-06-18] MEDS ORDERED: ROCEPHIN VIAL 1 GRAM ONE (14:36)
[2019-06-18] MEDS ORDERED: NS 1000 ML 1,000 ML ONE (14:36)
[2019-06-18] MEDS ORDERED: ROCEPHIN VIAL 1 GRAM 1 G in NS 100 ML IV + SPIKE MINIBAG* 100 ML IV ONE (14:47)
[2019-06-18] MEDS ORDERED: ROCEPHIN VIAL 1 GRAM 1 G in NS 100 ML IV + SPIKE MINIBAG* 100 ML IV SCH (17:29)
[2019-06-18 17:32] LABS: BILIRUBIN,URINE NEGATIVE (NEGATIVE); BLOOD/HEMOGLOBIN,URINE NEGATIVE (NEGATIVE); GLUCOSE, URINE 3+ (NEGATIVE); KETONES,URINE NEGATIVE (NEGATIVE); LEUKOCYTE ESTERASE ,URINE 2+ (NEGATIVE); NITRITES,URINE NEGATIVE (NEGATIVE); PROTEIN,URINE 1+ (NEGATIVE); UROBILINOGEN,URINE NORMAL (NORMAL)
[2019-06-18 17:40] LABS: APPEARANCE,URINE CLOUDY (CLEAR); BACTERIA,URINE TRACE /HPF (NEGATIVE); COLOR,URINE PALE YELLOW (YELLOW); RBC,URINE NONE SEEN /HPF (0-3); SQUAMOUS EPITHELIAL CELL,UR RARE /HPF (NEGATIVE)
[2019-06-18 17:41] LABS: YEAST,URINE MANY /HPF (NEGATIVE)
[2019-06-18] MEDS: NS 1000 ML 1,000 ML IV SCH (18:07)
[2019-06-18] MEDS: MERREM VIAL 1 G in NS 100 ML IV + SPIKE MINIBAG* 100 ML IV SCH ×2 (18:44→20:51)
[2019-06-18] MEDS: PEPCID TAB 20 MG PO SCH (20:51)
[2019-06-18] MEDS: SNACK - Diabetic Appropriate PO SCH (20:52)
[2019-06-18] MEDS: TRICOR TAB 160 MG PO SCH (20:52)
[2019-06-18] MEDS: COREG TAB 3.125 MG PO SCH (20:52)
[2019-06-18] MEDS: ZOCOR TAB 40 MG PO SCH (20:52)
[2019-06-18] MEDS: HumuLIN R SUBCUT PRN (21:30)
[2019-06-19 05:58] LABS: BASOPHILS # (AUTO) 0.1 X10^3/uL (0.0-0.1); BASOPHILS % (AUTO) 0.6 % (0.2-1.0); EOSINOPHILS # (AUTO) 0.2 x10^3/uL (0.0-0.2); EOSINOPHILS % (AUTO) 2.1 % (0.9-2.9); HEMOGLOBIN 9.2 g/dL (12.0-16.0); LYMPHOCYTES # (AUTO) 1.6 X10^3/uL (1.3-2.9); LYMPHOCYTES % (AUTO) 17.2 % (21.0-51.0); MEAN CORPUSCULAR HEMOGLOBIN 26.7 pg (27.0-34.0); MEAN CORPUSCULAR HGB CONC 32.8 g/dL (33.0-35.0); MEAN CORPUSCULAR VOLUME 81.3 fL (80.0-100.0); MEAN PLATELET VOLUME 7.7 fL (7.4-11.0); MONOCYTES # (AUTO) 1.1 x10^3/uL (0.3-0.8); MONOCYTES % (AUTO) 11.8 % (0.0-13.0); NEUTROPHILS # (AUTO) 6.4 x10^3/uL (2.2-4.8); NEUTROPHILS % (AUTO) 68.3 % (42.0-75.0); PLATELET COUNT 379 X10^3/uL (150.0-450.0); RED BLOOD COUNT 3.44 X10^6/uL (3.5-5.4); RED CELL DISTRIBUTION WIDTH 15.4 % (11.6-16.5); WHITE BLOOD COUNT 9.4 X10^3/uL (3.6-10.0)
[2019-06-19 06:27] LABS: ALBUMIN 2.2 g/dL (3.4-5.0); CALCIUM 8.6 mg/dL (8.5-10.1); CARBON DIOXIDE 29.9 mmol/L (21-32); CREATININE 1.19 mg/dL (0.55-1.02); TOTAL PROTEIN 6.3 g/dL (6.4-8.2)
[2019-06-19] MEDS: NS 1000 ML 1,000 ML IV SCH ×3 (08:58→22:13)
[2019-06-19] MEDS: MERREM VIAL 1 G in NS 100 ML IV + SPIKE MINIBAG* 100 ML IV SCH ×2 (08:58→21:05)
[2019-06-19] MEDS: COREG TAB 3.125 MG PO SCH ×2 (08:58→21:06)
[2019-06-19] MEDS: PEPCID TAB 20 MG PO SCH ×2 (08:59→21:07)
[2019-06-19] MEDS ORDERED: ABILIFY PO SCH (09:00)
[2019-06-19] MEDS: SYNTHROID 100 mcg TAB PO SCH (09:10)
[2019-06-19] MEDS: SINEMET (PLAIN) 10/100 MG PO SCH ×2 (10:11→21:08)
--- NOTE | 2019-06-19 10:37 | DR.H&P ---
H&P History & Physical for Day of: H&P Date: 06/19/19 Chief Complaint Chief Complaint: weakness, altered mental status, fall Allergies Allergies Allergy/AdvReac Type Severity Reaction Status Date / Time oxycodone Allergy Verified 08/10/18 16:18 History of Present Illness History of Present Illness: Ms. Palomares is a 64 y/o female with a hx of recurrent UTIs presented due to having a fall at home yesterday. She was also noted to be confused by the home health nurse so EMS was called. Patient reports falling due to tripping with her walker at home. She hit her head and bruised her leg. She also reports some lower abdominal pain after the fall. She was admitted last month for ESBL UTI and completed a 7 day course of Merrem. ED work-up - CT head negative for acute changes - CXR negative - UA suggestive of infection with increased WBCs, elevated BUN/Cr. - Meds: received one dose of Rocephin and IVF Past Medical History Past Medical History: Angina, Anxiety, Arthritis, Asthma, COPD, Depression, Di abetes, Dyslipidemia, GERD, Headaches, Hypothyroidism and Kidney Stones Additional Medical History: MORBID OBESITY; VITAMIN B12 DEFICIENCY; LUMBOSACAL RADICULOPATHY Past Surgical History Surgical History: Abdominal Surgery, Bowel Resection, Hysterectomy, Ortho Surgery, Tonsillectomy and Lithotripsy Family History Family Medical History: Diabetes Mellitus and HI Social History Does patient currently use any type of tobacco product: No Have you used tobacco products in the last 12 months: No Type of Tobacco Use: None Does any household member use tobacco: No Alcohol Use: None Drug Use: None Medications Home Medications: oxycodone Allergy (Verified 08/10/18 16:18) Labs Result Diagrams: 06/19/19 04:43 06/19/19 04:43 Labs: Laboratory WBC 9.4 X10^3/uL (3.6-10.0) 06/19/19 04:43 RBC 3.44 X10^6/uL (3.5-5.4) L 06/19/19 04:43 Hgb 9.2 g/dL (12.0-16.0) L 06/19/19 04:43 Hct 28.0 % (36.0-47.0) L 06/19/19 04:43 MCV 81.3 fL (80.0-100.0) 06/19/19 04:43 MCH 26.7 pg (27.0-34.0) L 06/19/19 04:43 MCHC 32.8 g/dL (33.0-35.0) L 06/19/19 04:43 RDW 15.4 % (11.6-16.5) 06/19/19 04:43 Plt Count 379 X10^3/uL (150.0-450.0) 06/19/19 04:43 Plt Count Comment Adequate (ADEQUATE) 06/18/19 12:53 MPV 7.7 fL (7.4-11.0) 06/19/19 04:43 Neut % (Auto) 68.3 % (42.0-75.0) 06/19/19 04:43 Lymph % (Auto) 17.2 % (21.0-51.0) L 06/19/19 04:43 [place] % (Auto) 11.8 % (0.0-13.0) 06/19/19 04:43 Eos % (Auto) 2.1 % (0.9-2.9) 06/19/19 04:43 Baso % (Auto) 0.6 % (0.2-1.0) 06/19/19 04:43 Neut # (Auto) 6.4 x10^3/uL (2.2-4.8) H 06/19/19 04:43 Lymph # (Auto) 1.6 X10^3/uL (1.3-2.9) 06/19/19 04:43 [place] # (Auto) 1.1 x10^3/uL (0.3-0.8) H 06/19/19 04:43 Eos # (Auto) 0.2 x10^3/uL (0.0-0.2) 06/19/19 04:43 Baso # (Auto) 0.1 X10^3/uL (0.0-0.1) 06/19/19 04:43 Absolute Nucleated RBC 0.0 /100WBC 06/19/19 04:43 Plt Morphology Comment Normal (NORMAL) 06/18/19 12:53 RBC Morphology Abnormal (NORMAL) A 06/18/19 12:53 Hypochromasia Slight A 06/18/19 12:53 Sodium 140 mmol/L (136-145) 06/19/19 04:43 Corrected Sodium 141 mmol/L (136-145) 06/19/19 04:43 Potassium 4.1 mmol/L (3.5-5.1) 06/19/19 04:43 Chloride 105 mmol/L (98-107) 06/19/19 04:43 Carbon Dioxide 29.9 mmol/L (21-32) 06/19/19 04:43 BUN 35 mg/dL (7-18) H 06/19/19 04:43 Creatinine 1.19 mg/dL (0.55-1.02) H 06/19/19 04:43 Est GFR (MDRD) Af Amer 59 (>60) 06/19/19 04:43 Est GFR (MDRD) Non-Af 48 (>60) L 06/19/19 04:43 Glucose 150 mg/dL (65-99) H 06/19/19 04:43 POC Glucose (mg/dL) 152 mg/dL (65-99) H 06/19/19 05:56 Calcium 8.6 mg/dL (8.5-10.1) 06/19/19 04:43 Corrected Calcium 10.0 mg/dL (8.5-10.1) 06/19/19 04:43 Total Bilirubin 0.20 mg/dL (0.2-1.0) 06/19/19 04:43 AST 11 Units/L (15-37) L 06/19/19 04:43 ALT 9 Units/L (12-78) L 06/19/19 04:43 Alkaline Phosphatase 88 Units/L (46-116) 06/19/19 04:43 Total Protein 6.3 g/dL (6.4-8.2) L 06/19/19 04:43 Albumin 2.2 g/dL (3.4-5.0) L 06/19/19 04:43 Globulin 4.1 g/dL (2.5-4.5) 06/19/19 04:43 Albumin/Globulin Ratio 0.5 Ratio (1.1-2.1) L 06/19/19 04:43 Specimen Type Catherized urine 06/18/19 17:00 Urine Color Pale yellow (YELLOW) 06/18/19 17:00 Urine Appearance Cloudy (CLEAR) 06/18/19 17:00 Urine pH 5.0 (5.0 - 8.0) 06/18/19 17:00 Ur Specific [place] 1.020 (1.000-1.030) 06/18/19 17:00 Urine Protein 1+ (NEGATIVE) 06/18/19 17:00 Urine Glucose (UA) 3+ (NEGATIVE) 06/18/19 17:00 Urine Ketones Negative (NEGATIVE) 06/18/19 17:00 Urine Occult Blood Negative (NEGATIVE) 06/18/19 17:00 Urine Nitrite Negative (NEGATIVE) 06/18/19 17:00 Urine Bilirubin Negative (NEGATIVE) 06/18/19 17:00 Urine Urobilinogen Normal (NORMAL) 06/18/19 17:00 Ur Leukocyte Esterase 2+ (NEGATIVE) 06/18/19 17:00 Urine RBC None seen /HPF (0-3) 06/18/19 17:00 Urine WBC Tntc /HPF (0-5) A 06/18/19 17:00 Ur Squamous Epith Cells Rare /HPF (NEGATIVE) 06/18/19 17:00 Urine Bacteria Trace /HPF (NEGATIVE) 06/18/19 17:00 Urine Yeast Many /HPF (NEGATIVE) 06/18/19 17:00 Ur Culture Indicated? No/not indicated 06/18/19 17:00 Influenza Type A (PCR) Negative (NEGATIVE) 06/18/19 13:49 Influenza Type B (PCR) Negative (NEGATIVE) 06/18/19 13:49 Review of Systems Constitutional: Weakness Eyes: No Symptoms Reported ENT: No Symptoms Reported Respiratory: No Symptoms Reported Cardiovascular: No Symptoms Reported Gastrointestinal: No Symptoms Reported Genitourinary: No Symptoms Reported Musculoskeletal: Back Pain, Leg Pain and Neck Pain Skin: Bruising and Wound Neurological: Confusion Physical Exam Vital Signs: Temperature 98.5 F Pulse Rate [Left Radial] 99 Pulse Rate 92 Respiratory Rate 20 Blood Pressure [Left Arm] 129/67 Blood Pressure [Right Arm] 169/77 Blood Pressure 177/99 O2 Sat by Pulse Oximetry 98 Oriented: Normal Eyes: Normal Nose: Normal Respiratory: Diminished Throughout Cardiovascular: Normal and Edema Auscultation: Bowel Sounds: Normal Palpation: Normal Tenderness: Suprapubic Skin: Wound, Bruising and Other (b/l legs chronic wounds, no drainage, slight erythema noted. Sacral ulcer ) Psychiatric: Normal Mood Description: Calm Affect: Normal Speech Pattern: Clear and Appropriate Assessment/Plan (1) Acute renal failure: Qualifiers: Acute renal failure type: unspecified Qualified Code(s): N17.9 - Acute kidney failure, unspecified Status: Acute Plan: Improving, likely due to infection and dehydration Cr trending down, 1.42 to 1.19 Continue gentle hydration, follow AM labs (2) AMS (altered mental status): Qualifiers: Altered mental status type: disorientation Qualified Code(s): R41.0 - Disorientation, unspecified Status: Acute Plan: Resolved, likely due to infection or medication induced. Patient is on opioids and benzos but denies taking more than prescribed dose. (3) UTI (urinary tract infection): Qualifiers: Urinary tract infection type: acute cystitis Hematuria presence: without hematuria Qualified Code(s): N30.00 - Acute cystitis without hematuria Status: Acute Plan: UA with elevated WBCs, culture pending Last month admitted for ESBL UTI, will DC Rocephin, start Meropenem (4) Anemia: Qualifiers: Anemia type: iron deficiency Iron deficiency anemia type: inadequate dietary iron intake Qualified Code(s): D50.8 - Other iron deficiency anemias Status: Acute Plan: Hgb 9.2, stable Continue to monitor AM labs (5) Sacral decubitus ulcer: Qualifiers: Pressure injury stage: stage 3 Qualified Code(s): L89.153 - Pressure ulcer of sacral region, stage 3 Status: Acute Plan: Prev had a wound vac, Home health doing wound care at home. Continue wound care while inpatient (6) Generalized weakness: Status: Acute Plan: Chronic due to obesity, recurrent UTIs PT/OT, fall precautions (7) Degenerative joint disease of left hip: Qualifiers: Osteoarthritis type: unspecified Qualified Code(s): M16.12 - Unilateral primary osteoarthritis, left hip Status: Chronic Plan: Continue home medications: [place] TID prn (8) Anxiety: Status: Acute Plan: Continue Xanax 1 mg prn Review H&P Reviewed: Yes Patient was examined?: Yes
[2019-06-19] MEDS ORDERED: PATIENT'S HOME MEDICATION PO SCH (11:00)
[2019-06-19] MEDS: PATIENT'S HOME MEDICATION PO SCH (11:01)
[2019-06-19] MEDS: NORCO 10/325 TAB PO PRN ×2 (14:32→22:16)
[2019-06-19] MEDS ORDERED: XYLOCAINE 2 % (PLAIN) ONE (15:16)
[2019-06-19] MEDS ORDERED: XYLOCAINE 2 % (PLAIN) IJ PRN (15:44)
[2019-06-19] MEDS ORDERED: NS 100 ML IV + SPIKE MINIBAG* 0 ML IV ONE (20:22)
[2019-06-19] MEDS ORDERED: NS 100 ML IV 100 ML IV ONE (20:24)
[2019-06-19] MEDS ORDERED: MERREM VIAL ONE (20:24)
[2019-06-19] MEDS: SNACK - Diabetic Appropriate PO SCH (21:06)
[2019-06-19] MEDS: CYMBALTA PO SCH (21:07)
[2019-06-19] MEDS: ZOCOR TAB 40 MG PO SCH (21:08)
[2019-06-19] MEDS: TRICOR TAB 160 MG PO SCH (21:08)
[2019-06-19] MEDS: HumuLIN R SUBCUT PRN (21:23)
[2019-06-19] MEDS: XANAX PO PRN (22:21)
[2019-06-19] MEDS: ZOFRAN INJ 4 MG VIAL IVP PRN (23:42)
[2019-06-20 05:33] LABS: BASOPHILS # (AUTO) 0.1 X10^3/uL (0.0-0.1); BASOPHILS % (AUTO) 0.6 % (0.2-1.0); EOSINOPHILS # (AUTO) 0.2 x10^3/uL (0.0-0.2); EOSINOPHILS % (AUTO) 1.6 % (0.9-2.9); HEMATOCRIT 28.1 % (36.0-47.0); HEMOGLOBIN 9.3 g/dL (12.0-16.0); LYMPHOCYTES # (AUTO) 1.6 X10^3/uL (1.3-2.9); LYMPHOCYTES % (AUTO) 16.5 % (21.0-51.0); MEAN CORPUSCULAR HEMOGLOBIN 27.1 pg (27.0-34.0); MEAN CORPUSCULAR VOLUME 82.1 fL (80.0-100.0); MONOCYTES # (AUTO) 0.9 x10^3/uL (0.3-0.8); MONOCYTES % (AUTO) 8.9 % (0.0-13.0); NEUTROPHILS % (AUTO) 72.4 % (42.0-75.0); PLATELET COUNT 361 X10^3/uL (150.0-450.0); RED BLOOD COUNT 3.42 X10^6/uL (3.5-5.4); RED CELL DISTRIBUTION WIDTH 15.4 % (11.6-16.5); WHITE BLOOD COUNT 9.6 X10^3/uL (3.6-10.0)
[2019-06-20 05:40] LABS: BLOOD UREA NITROGEN 19 mg/dL (7-18); CALCIUM 8.3 mg/dL (8.5-10.1); CARBON DIOXIDE 27.3 mmol/L (21-32); CHLORIDE 103 mmol/L (98-107); COR NA(FOR HYPERGLY) 141 mmol/L (136-145); CREATININE 0.93 mg/dL (0.55-1.02); SODIUM 139 mmol/L (136-145); eGFR NON BLACK RACES > 60 (>60)
[2019-06-20] MEDS: HumuLIN R SUBCUT PRN ×4 (05:47→21:50)
[2019-06-20] MEDS: NORCO 10/325 TAB PO PRN (05:48)
[2019-06-20] MEDS: XANAX PO PRN (09:38)
[2019-06-20] MEDS: SYNTHROID 100 mcg TAB PO SCH (09:39)
[2019-06-20] MEDS: PEPCID TAB 20 MG PO SCH ×2 (09:39→21:10)
[2019-06-20] MEDS: COREG TAB 3.125 MG PO SCH ×2 (09:39→21:10)
[2019-06-20] MEDS: PATIENT'S HOME MEDICATION PO SCH (09:39)
[2019-06-20] MEDS: SINEMET (PLAIN) 10/100 MG PO SCH ×2 (09:39→21:10)
[2019-06-20] MEDS: ZOFRAN INJ 4 MG VIAL IVP PRN ×2 (09:46→19:51)
[2019-06-20] MEDS ORDERED: MERREM VIAL ONE (09:52)
[2019-06-20] MEDS ORDERED: NS 100 ML IV 100 ML IV ONE (09:53)
[2019-06-20] MEDS: MERREM VIAL 1 G in NS 100 ML IV + SPIKE MINIBAG* 100 ML IV SCH ×2 (09:57→21:11)
[2019-06-20] MEDS: NS 1000 ML 1,000 ML IV SCH ×3 (10:20→21:32)
[2019-06-20] MEDS: DIFLUCAN 200 MG IV PREMIX* 200 MG/100 ML BAG IV SCH (17:29)
[2019-06-20] MEDS: SNACK - Diabetic Appropriate PO SCH (21:09)
[2019-06-20] MEDS: TRICOR TAB 160 MG PO SCH (21:10)
[2019-06-20] MEDS: ZOCOR TAB 40 MG PO SCH (21:10)
[2019-06-20] MEDS: CYMBALTA PO SCH (21:16)
[2019-06-21] MEDS: NS 1000 ML 1,000 ML IV SCH (02:30)
[2019-06-21 05:17] LABS: BASOPHILS % (AUTO) 0.5 % (0.2-1.0); EOSINOPHILS # (AUTO) 0.7 x10^3/uL (0.0-0.2); HEMATOCRIT 26.3 % (36.0-47.0); HEMOGLOBIN 8.5 g/dL (12.0-16.0); LYMPHOCYTES # (AUTO) 1.8 X10^3/uL (1.3-2.9); LYMPHOCYTES % (AUTO) 19.5 % (21.0-51.0); MEAN CORPUSCULAR HEMOGLOBIN 26.8 pg (27.0-34.0); MEAN CORPUSCULAR HGB CONC 32.4 g/dL (33.0-35.0); MEAN CORPUSCULAR VOLUME 82.8 fL (80.0-100.0); MEAN PLATELET VOLUME 7.5 fL (7.4-11.0); MONOCYTES # (AUTO) 0.8 x10^3/uL (0.3-0.8); MONOCYTES % (AUTO) 8.5 % (0.0-13.0); NEUTROPHILS # (AUTO) 5.8 x10^3/uL (2.2-4.8); NEUTROPHILS % (AUTO) 63.5 % (42.0-75.0); PLATELET COUNT 357 X10^3/uL (150.0-450.0); RED BLOOD COUNT 3.18 X10^6/uL (3.5-5.4); RED CELL DISTRIBUTION WIDTH 15.5 % (11.6-16.5); WHITE BLOOD COUNT 9.2 X10^3/uL (3.6-10.0)
[2019-06-21 05:30] LABS: BLOOD UREA NITROGEN 18 mg/dL (7-18); CALCIUM 8.2 mg/dL (8.5-10.1); CARBON DIOXIDE 27.8 mmol/L (21-32); CHLORIDE 108 mmol/L (98-107); COR NA(FOR HYPERGLY) 142 mmol/L (136-145); CREATININE 0.97 mg/dL (0.55-1.02); SODIUM 140 mmol/L (136-145); eGFR NON BLACK RACES > 60 (>60)
[2019-06-21] MEDS: HumuLIN R SUBCUT PRN (06:08)
[2019-06-21 09:04] VITALS: BP 160/76
--- NOTE | 2019-06-21 09:05 | W.DIS.FURT ---
Summary of Discharge Discharge Summary of Date Date of Exam: 06/21/19 Admission Date Date of Admission: 06/18/19 Admission Diagnosis Patient Problems (Updated 06/21/19 @ 11:27 by Loly Carey) Iron deficiency anemia (Chronic) D50.9 Anxiety (Chronic) F41.9 Acute renal failure (Acute) N17.9 Dehydration (Acute) E86.0 AMS (altered mental status) (Acute) R41.82 UTI (urinary tract infection) (Acute) N39.0 Hospital Course: Patient is a 64y/o female with a PMH of recurrent UTI, sacral wound, chronic pain disorder on opioids and anxiety was admitted due to dehydration and confusion. Patient was evaluated by home health nurse and appeared to be confused so was sent to the ED for further evaluation. Patient's labs suggested dehydration with acute kidney failure. UA suggestive of infection. CT head and CXR were negative for any acute changes. Patient received IV fluids, started on antibiotics. Patient's renal function normalized with hydration. Urine and blood cultures remained negative. Patient was initially started on merrem due to hx of ESBL UTI but due to negative culture, this was stopped. She was also started on Diflucan due to candiduria. Patient's confusion was resolved and she was lee ann ented x 3. She was stable for discharge with home health services for wound care. She will continue Diflucan 100 mg oral for 3 days. Follow up with PCP in one week. Vital Signs: Vital Signs (72 hours) 06/18/19 12:15 06/18/19 14:46 06/18/19 15:00 Temperature 98.6 F Pulse Rate 97 H 92 H 93 H Pulse Rate [Left Radial] Respiratory Rate 16 16 12 Blood Pressure 146/77 Blood Pressure [Left Arm] Blood Pressure [Right Arm] O2 Sat by Pulse Oximetry 98 06/18/19 15:15 06/18/19 15:34 06/18/19 15:35 Temperature Pulse Rate 94 H 103 H 101 H Pulse Rate [Left Radial] Respiratory Rate 12 19 17 Blood Pressure 156/105 Blood Pressure [Left Arm] Blood Pressure [Right Arm] O2 Sat by Pulse Oximetry 06/18/19 15:45 06/18/19 16:00 06/18/19 16:01 Temperature Pulse Rate 96 H 93 H 95 H Pulse Rate [Left Radial] Respiratory Rate 12 12 14 Blood Pressure 177/99 Blood Pressure [Left Arm] Blood Pressure [Right Arm] O2 Sat by Pulse Oximetry 06/18/19 16:15 06/18/19 17:07 06/18/19 20:00 Temperature 98.1 F 98.4 F Pulse Rate 92 H Pulse Rate [Left Radial] 90 89 Respiratory Rate 13 20 9 L Blood Pressure Blood Pressure [Left Arm] 112/85 92/55 Blood Pressure [Right Arm] O2 Sat by Pulse Oximetry 99 99 06/19/19 00:00 06/19/19 04:00 06/19/19 08:00 Temperature 98.3 F 98.1 F 98.5 F Pulse Rate Pulse Rate [Left Radial] 89 92 H 99 H Respiratory Rate 12 14 20 Blood Pressure Blood Pressure [Left Arm] 124/72 140/65 129/67 Blood Pressure [Right Arm] O2 Sat by Pulse Oximetry 100 99 98 06/19/19 12:00 06/19/19 14:32 06/19/19 15:32 Temperature 98.4 F Pulse Rate Pulse Rate [Left Radial] 98 H Respiratory Rate 20 20 20 Blood Pressure Blood Pressure [Left Arm] 102/55 Blood Pressure [Right Arm] O2 Sat by Pulse Oximetry 98 06/19/19 16:00 06/19/19 20:00 06/19/19 22:16 Temperature 97.7 F 98.7 F Pulse Rate Pulse Rate [Left Radial] 89 93 H Respiratory Rate 20 18 20 Blood Pressure Blood Pressure [Left Arm] 134/65 159/70 Blood Pressure [Right Arm] O2 Sat by Pulse Oximetry 100 99 06/19/19 23:16 06/20/19 00:00 06/20/19 04:00 Temperature 97.8 F 98.3 F Pulse Rate Pulse Rate [Left Radial] 91 H 93 H Respiratory Rate 20 20 20 Blood Pressure Blood Pressure [Left Arm] 177/72 142/64 Blood Pressure [Right Arm] O2 Sat by Pulse Oximetry 99 99 06/20/19 05:48 06/20/19 06:48 06/20/19 08:00 Temperature 98.1 F Pulse Rate Pulse Rate [Left Radial] 82 Respiratory Rate 20 18 18 Blood Pressure Blood Pressure [Left Arm] 167/68 Blood Pressure [Right Arm] O2 Sat by Pulse Oximetry 98 06/20/19 12:00 06/20/19 16:00 06/20/19 20:00 Temperature 97.9 F 97.7 F 98.2 F Pulse Rate Pulse Rate [Left Radial] 82 83 95 H Respiratory Rate 18 18 20 Blood Pressure Blood Pressure [Left Arm] 168/71 132/60 161/69 Blood Pressure [Right Arm] O2 Sat by Pulse Oximetry 99 99 100 06/21/19 00:00 06/21/19 04:00 06/21/19 08:00 Temperature 97.7 F 98.7 F 98.8 F Pulse Rate Pulse Rate [Left Radial] 87 84 91 H Respiratory Rate 16 18 20 Blood Pressure Blood Pressure [Left Arm] Blood Pressure [Right Arm] 145/67 148/59 160/76 O2 Sat by Pulse Oximetry 99 99 97 Labs: Laboratory Last Values WBC 9.2 X10^3/uL (3.6-10.0) 06/21/19 04:52 RBC 3.18 X10^6/uL (3.5-5.4) L 06/21/19 04:52 Hgb 8.5 g/dL (12.0-16.0) L 06/21/19 04:52 Hct 26.3 % (36.0-47.0) L 06/21/19 04:52 MCV 82.8 fL (80.0-100.0) 06/21/19 04:52 MCH 26.8 pg (27.0-34.0) L 06/21/19 04:52 MCHC 32.4 g/dL (33.0-35.0) L 06/21/19 04:52 RDW 15.5 % (11.6-16.5) 06/21/19 04:52 Plt Count 357 X10^3/uL (150.0-450.0) 06/21/19 04:52 Plt Count Comment Adequate (ADEQUATE) 06/18/19 12:53 MPV 7.5 fL (7.4-11.0) 06/21/19 04:52 Neut % (Auto) 63.5 % (42.0-75.0) 06/21/19 04:52 Lymph % (Auto) 19.5 % (21.0-51.0) L 06/21/19 04:52 [place] % (Auto) 8.5 % (0.0-13.0) 06/21/19 04:52 Eos % (Auto) 8.0 % (0.9-2.9) H 06/21/19 04:52 Baso % (Auto) 0.5 % (0.2-1.0) 06/21/19 04:52 Neut # (Auto) 5.8 x10^3/uL (2.2-4.8) H 06/21/19 04:52 Lymph # (Auto) 1.8 X10^3/uL (1.3-2.9) 06/21/19 04:52 [place] # (Auto) 0.8 x10^3/uL (0.3-0.8) 06/21/19 04:52 Eos # (Auto) 0.7 x10^3/uL (0.0-0.2) H 06/21/19 04:52 Baso # (Auto) 0.0 X10^3/uL (0.0-0.1) 06/21/19 04:52 Absolute Nucleated RBC 0.0 /100WBC 06/21/19 04:52 Plt Morphology Comment Normal (NORMAL) 06/18/19 12:53 RBC Morphology Abnormal (NORMAL) A 06/18/19 12:53 Hypochromasia Slight A 06/18/19 12:53 Sodium 140 mmol/L (136-145) 06/21/19 04:52 Corrected Sodium 142 mmol/L (136-145) 06/21/19 04:52 Potassium 4.6 mmol/L (3.5-5.1) 06/21/19 04:52 Chloride 108 mmol/L (98-107) H 06/21/19 04:52 Carbon Dioxide 27.8 mmol/L (21-32) 06/21/19 04:52 BUN 18 mg/dL (7-18) 06/21/19 04:52 Creatinine 0.97 mg/dL (0.55-1.02) 06/21/19 04:52 Est GFR (MDRD) Af Amer > 60 (>60) 06/21/19 04:52 Est GFR (MDRD) Non-Af > 60 (>60) 06/21/19 04:52 Glucose 180 mg/dL (65-99) H 06/21/19 04:52 POC Glucose (mg/dL) 164 mg/dL (65-99) H 06/21/19 05:27 Calcium 8.2 mg/dL (8.5-10.1) L 06/21/19 04:52 Corrected Calcium 10.0 mg/dL (8.5-10.1) 06/19/19 04:43 Total Bilirubin 0.20 mg/dL (0.2-1.0) 06/19/19 04:43 AST 11 Units/L (15-37) L 06/19/19 04:43 ALT 9 Units/L (12-78) L 06/19/19 04:43 Alkaline Phosphatase 88 Units/L (46-116) 06/19/19 04:43 Total Protein 6.3 g/dL (6.4-8.2) L 06/19/19 04:43 Albumin 2.2 g/dL (3.4-5.0) L 06/19/19 04:43 Globulin 4.1 g/dL (2.5-4.5) 06/19/19 04:43 Albumin/Globulin Ratio 0.5 Ratio (1.1-2.1) L 06/19/19 04:43 Specimen Type Catherized urine 06/18/19 17:00 Urine Color Pale yellow (YELLOW) 06/18/19 17:00 Urine Appearance Cloudy (CLEAR) 06/18/19 17:00 Urine pH 5.0 (5.0 - 8.0) 06/18/19 17:00 Ur Specific [place] 1.020 (1.000-1.030) 06/18/19 17:00 Urine Protein 1+ (NEGATIVE) 06/18/19 17:00 Urine Glucose (UA) 3+ (NEGATIVE) 06/18/19 17:00 Urine Ketones Negative (NEGATIVE) 06/18/19 17:00 Urine Occult Blood Negative (NEGATIVE) 06/18/19 17:00 Urine Nitrite Negative (NEGATIVE) 06/18/19 17:00 Urine Bilirubin Negative (NEGATIVE) 06/18/19 17:00 Urine Urobilinogen Normal (NORMAL) 06/18/19 17:00 Ur Leukocyte Esterase 2+ (NEGATIVE) 06/18/19 17:00 Urine RBC None seen /HPF (0-3) 06/18/19 17:00 Urine WBC Tntc /HPF (0-5) A 06/18/19 17:00 Ur Squamous Epith Cells Rare /HPF (NEGATIVE) 06/18/19 17:00 Urine Bacteria Trace /HPF (NEGATIVE) 06/18/19 17:00 Urine Yeast Many /HPF (NEGATIVE) 06/18/19 17:00 Ur Culture Indicated? 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 Pt is to keep follow up appointment as instructed and take medications as ordered. Discharge Medications Discharge Medications: oxycodone Allergy (Verified 08/10/18 16:18) New Prescriptions fluconazole [Diflucan] 100 mg PO DAILY 3 Days #3 tab 06/21/19 [Rx] Follow up and Referral Follow Up: 1 Week (PCP) Discharge Disposition Discharge Disposition: Home with home health
[2019-06-21] MEDS: SINEMET (PLAIN) 10/100 MG PO SCH (09:48)
[2019-06-21] MEDS: DIFLUCAN 200 MG IV PREMIX* 200 MG/100 ML BAG IV SCH (09:48)
[2019-06-21] MEDS: XANAX PO PRN (09:48)
[2019-06-21] MEDS: COREG TAB 3.125 MG PO SCH (09:49)
[2019-06-21] MEDS: SYNTHROID 100 mcg TAB PO SCH (09:49)
[2019-06-21] MEDS: PEPCID TAB 20 MG PO SCH (09:49)
[2019-06-21] MEDS: PATIENT'S HOME MEDICATION PO SCH (10:12)
--- NOTE | 2019-07-04 11:47 | PCM.PROG ---
Progress Note - Progress Note for Day of Date of Exam: 06/20/19 - Subjective Subjective: WAS ADMITTED FOR UTI, DEHYDRATION, ANEMIA, ACUTE RENAL FAILURE, AND AMS. SHE REPORTS FALLING AT HOME PRIOR TO ADMISSION. TODAY, SHE IS ALERT AND ORIENTED, LYING IN BED ON MORNING ROUNDS. SHE REPORTS LOWER ABDOMINAL PAIN AND WEAKNESS TODAY. ON EXAMINATION, HEART IS REGULAR IN RATE AND RHYTHM. BILATERAL LUNGS ARE NOTED WITH DIMINISHED LUNG SOUNDS THROUGHOUT. ABDOMEN IS ROUND, SOFT, AND NON-TENDER WITH NORMAL BOWEL SOUNDS NOTED IN ALL QUADRANTS. HER VITALS THIS MORNING ARE: 98.1-82-18-98%-167/68. LABS WERE OBTAINED. ABNORMAL LAB VALUES INCLUDE THE FOLLOWING: RBC 3.42, HGB 9.3, HCT 28.1, BUN 19, GLUCOSE 199, CALCIUM 8.3. URINE AND BLOOD CULTURES ARE PENDING. SHE IS CURRENTLY RECEIVING IV FLUIDS, AND MEROPENEM. WE WILL CONTINUE WITH CURRENT PLAN OF CARE TODAY. OTHERWISE, WE WILL FOLLOW UP WITH AM LABS AND CONTINUE TO MONITOR. - Past Medical Family Social History Past Med/Fam/Surg Hx: No changes since H&P Allergies: Allergies oxycodone Allergy (Verified 08/10/18 16:18) - Review of Systems ROS: No change since H&P - Vital Signs and I&O's Vital Signs: Temperature 98.8 F Pulse Rate [Left Radial] 91 Pulse Rate 92 Respiratory Rate 20 Blood Pressure [Left Arm] 161/69 Blood Pressure [Right Arm] 160/76 Blood Pressure 177/99 O2 Sat by Pulse Oximetry 97 - Physical Exam Oriented: Normal Eyes: Normal Ear: Normal Nose: Normal Respiratory: Generalized, Diminished Cardiovascular: Normal, Edema Auscultation: Bowel Sounds: Normal Palpation: Normal Tenderness: Suprapubic Skin: Wound, Bruising, Other (b/l legs chronic wounds, no drainage, slight erythema noted. Sacral ulcer) Psychiatric: Normal Mood Description: Calm Affect: Normal Speech Pattern: Clear, Appropriate - Laboratory and Diagnostics Result Diagrams: 06/21/19 04:52 06/21/19 04:52 Labs: 06/18/19 13:01 Blood Blood Culture - Final 06/18/19 12:53 Blood Blood Culture - Final 06/18/19 14:03 Urine,Catheterized Urine Culture - Final Laboratory WBC 9.2 X10^3/uL (3.6-10.0) 06/21/19 04:52 RBC 3.18 X10^6/uL (3.5-5.4) L 06/21/19 04:52 Hgb 8.5 g/dL (12.0-16.0) L 06/21/19 04:52 Hct 26.3 % (36.0-47.0) L 06/21/19 04:52 MCV 82.8 fL (80.0-100.0) 06/21/19 04:52 MCH 26.8 pg (27.0-34.0) L 06/21/19 04:52 MCHC 32.4 g/dL (33.0-35.0) L 06/21/19 04:52 RDW 15.5 % (11.6-16.5) 06/21/19 04:52 Plt Count 357 X10^3/uL (150.0-450.0) 06/21/19 04:52 Plt Count Comment Adequate (ADEQUATE) 06/18/19 12:53 MPV 7.5 fL (7.4-11.0) 06/21/19 04:52 Neut % (Auto) 63.5 % (42.0-75.0) 06/21/19 04:52 Lymph % (Auto) 19.5 % (21.0-51.0) L 06/21/19 04:52 [place] % (Auto) 8.5 % (0.0-13.0) 06/21/19 04:52 Eos % (Auto) 8.0 % (0.9-2.9) H 06/21/19 04:52 Baso % (Auto) 0.5 % (0.2-1.0) 06/21/19 04:52 Neut # (Auto) 5.8 x10^3/uL (2.2-4.8) H 06/21/19 04:52 Lymph # (Auto) 1.8 X10^3/uL (1.3-2.9) 06/21/19 04:52 [place] # (Auto) 0.8 x10^3/uL (0.3-0.8) 06/21/19 04:52 Eos # (Auto) 0.7 x10^3/uL (0.0-0.2) H 06/21/19 04:52 Baso # (Auto) 0.0 X10^3/uL (0.0-0.1) 06/21/19 04:52 Absolute Nucleated RBC 0.0 /100WBC 06/21/19 04:52 Plt Morphology Comment Normal (NORMAL) 06/18/19 12:53 RBC Morphology Abnormal (NORMAL) A 06/18/19 12:53 Hypochromasia Slight A 06/18/19 12:53 Sodium 140 mmol/L (136-145) 06/21/19 04:52 Corrected Sodium 142 mmol/L (136-145) 06/21/19 04:52 Potassium 4.6 mmol/L (3.5-5.1) 06/21/19 04:52 Chloride 108 mmol/L (98-107) H 06/21/19 04:52 Carbon Dioxide 27.8 mmol/L (21-32) 06/21/19 04:52 BUN 18 mg/dL (7-18) 06/21/19 04:52 Creatinine 0.97 mg/dL (0.55-1.02) 06/21/19 04:52 Est GFR (MDRD) Af Amer > 60 (>60) 06/21/19 04:52 Est GFR (MDRD) Non-Af > 60 (>60) 06/21/19 04:52 Glucose 180 mg/dL (65-99) H 06/21/19 04:52 POC Glucose (mg/dL) 164 mg/dL (65-99) H 06/21/19 05:27 Calcium 8.2 mg/dL (8.5-10.1) L 06/21/19 04:52 Corrected Calcium 10.0 mg/dL (8.5-10.1) 06/19/19 04:43 Total Bilirubin 0.20 mg/dL (0.2-1.0) 06/19/19 04:43 AST 11 Units/L (15-37) L 06/19/19 04:43 ALT 9 Units/L (12-78) L 06/19/19 04:43 Alkaline Phosphatase 88 Units/L (46-116) 06/19/19 04:43 Total Protein 6.3 g/dL (6.4-8.2) L 06/19/19 04:43 Albumin 2.2 g/dL (3.4-5.0) L 06/19/19 04:43 Globulin 4.1 g/dL (2.5-4.5) 06/19/19 04:43 Albumin/Globulin Ratio 0.5 Ratio (1.1-2.1) L 06/19/19 04:43 Specimen Type Catherized urine 06/18/19 17:00 Urine Color Pale yellow (YELLOW) 06/18/19 17:00 Urine Appearance Cloudy (CLEAR) 06/18/19 17:00 Urine pH 5.0 (5.0 - 8.0) 06/18/19 17:00 Ur Specific [place] 1.020 (1.000-1.030) 06/18/19 17:00 Urine Protein 1+ (NEGATIVE) 06/18/19 17:00 Urine Glucose (UA) 3+ (NEGATIVE) 06/18/19 17:00 Urine Ketones Negative (NEGATIVE) 06/18/19 17:00 Urine Occult Blood Negative (NEGATIVE) 06/18/19 17:00 Urine Nitrite Negative (NEGATIVE) 06/18/19 17:00 Urine Bilirubin Negative (NEGATIVE) 06/18/19 17:00 Urine Urobilinogen Normal (NORMAL) 06/18/19 17:00 Ur Leukocyte Esterase 2+ (NEGATIVE) 06/18/19 17:00 Urine RBC None seen /HPF (0-3) 06/18/19 17:00 Urine WBC Tntc /HPF (0-5) A 06/18/19 17:00 Ur Squamous Epith Cells Rare /HPF (NEGATIVE) 06/18/19 17:00 Urine Bacteria Trace /HPF (NEGATIVE) 06/18/19 17:00 Urine Yeast Many /HPF (NEGATIVE) 06/18/19 17:00 Ur Culture Indicated? No/not indicated 06/18/19 17:00 Influenza Type A (PCR) Negative (NEGATIVE) 06/18/19 13:49 Influenza Type B (PCR) Negative (NEGATIVE) 06/18/19 13:49 - Plan (1) Acute renal failure Status: Acute Qualifiers: Acute renal failure type: unspecified Qualified Code(s): N17.9 - Acute kidney failure, unspecified Plan: Improving, likely due to infection and dehydration. Continue gentle hydration, follow AM labs (2) UTI (urinary tract infection) Status: Acute Qualifiers: Urinary tract infection type: acute cystitis Hematuria presence: without hematuria Qualified Code(s): N30.00 - Acute cystitis without hematuria Plan: UA with elevated WBCs, culture pending. Last month admitted for ESBL UTI, continue Meropenem (3) Iron deficiency anemia Status: Chronic Qualifiers: Iron deficiency anemia type: unspecified iron deficiency Qualified Code(s): D50.9 - Iron deficiency anemia, unspecified (4) Sacral decubitus ulcer Status: Chronic Qualifiers: Pressure injury stage: stage 3 Plan: Prev had a wound vac, Home health doing wound care at home. Continue wo und care while inpatient (5) Generalized weakness Status: Chronic Plan: Chronic due to obesity, recurrent UTIs. PT/OT, fall precautions (6) Degenerative joint disease of left hip Status: Chronic Qualifiers: Plan: Continue home medications: [place] TID prn (7) Anxiety Status: Chronic Plan: Continue Xanax 1 mg prn
== END 2019-06-21 10:30 | disposition home health service (06) ==
LOC: MED/SURG 12:12 → ER 12:12 → MED/SURG 16:29
PROVIDERS: ADMIT Internal Medicine; ATTEND Internal Medicine
CPT/HCPCS: 36415; 70450; 71010; 71045; 80048; 80053; 81001; 85025; 87040; 87086; 87502; 94760; 96360; 96361; 96365; 96372; 96374; 96375; 97163; 99284; A4216; A4222; G0378; J0696; J1450; J1642; J1815; J2185; J2405; J7030; J7050

== ENCOUNTER 2019-10-02 17:48 | Inpatient (IN) ==
[2019-10-02] MEDS ORDERED: NS 500 ML IV 1,000 ML IV ONE (18:05)
[2019-10-02] MEDS ORDERED: MOTRIN TAB 800 MG PO ONE ×2 (18:06→18:09)
--- NOTE | 2019-10-02 18:07 | DR.FEVERAD ---
HPI - Time seen Time seen: 18:05 - HPI Comment HPI Comment: Patient complaint of weakness x 2 days. Saw her wound doctor for her sacral decubitus yesterday. No treatment changes done. Here today for weakness progressing and found she has a fever. - COVID-19 Coronavirus risk:travel/contact w/high risk person: No Coronavirus symptoms experienced: Fever - Nurses notes reviewed Nurses Notes Review: Yes - Source History Provided: Patient - Mode of Arrival Mode of Arrival: EMS - Timing Came on: Gradually - Duration Duration: Constant How lon Duration: Days - Severity Fever Severity/Quality: greater than 102 F - Context Symptoms: Fever History of: Diabetes, Chronic Illness - Modifying factors Modifying factors: Nothing - Associated signs and symptoms Associated signs and symptoms: Weakness PMH - PMH Past Medical History: Angina, Hypertension, Dyslipidemia, Diabetes, Depression, Anxiety, Hypothyroidism, COPD, Asthma, GERD, Arthritis, Kidney Stones, Headaches, CHF Past Surgical History: Yes Surgical History: Abdominal Surgery, Bowel Resection, Hysterectomy, Lithotripsy, Ortho Surgery, Tonsillectomy - Family History Family Medical History: Diabetes Mellitus, [place] - Social History Do you use any recreational Drugs:: No ROS - Review of Systems Constitutional: Fever, Weakness Eyes: No Symptoms Reported ENTM: No Symptoms Reported Respiratoy: No Symptoms Reported Cardiovascular: No Symptoms Reported Gastrointestinal/Abdominal: No Symptoms Reported Genitourinary: No Symptoms Reported Neurological: Weakness Musculoskeletal: No Symptoms Reported Integumentary: Wound (sacral decubitus) Hematologic/Lymphatic: No Symptoms Reported Endocrine: No Symptoms Reported Psychiatric: Depression All Other Systems: Reviewed and Negative PE - General Limitations: No Limitations General Appearance: Alert, In No Apparent Distress - Head Head Exam: Normal Inspection - Eyes Eye exam: Normal Appearance, EOMI - ENT ENT Exam: Normal Exam External Ear Exam: Normal External Inspection Mouth Exam: Normal Inspection Teeth Exam: Normal Inspection Throat Exam: Normal Inspection - Neck Neck Exam: Normal Inspection, Full ROM, Trachea Midline - Respiratory Respiratory Exam: Normal Lung Sounds Bilat. negative: Respiratory Distress Respiratory Exam: Bilateral Clear to Auscultation - Cardiovascular Cardiovascular Exam: Regular Rate - Abdominal Exam Abdominal Exam: Distention (morbid obesity) - Extremities Extremities Exam: Normal Inspection, Full ROM, Edema - Back Back Exam: Normal Inspection - Neurologic Neurological Exam: Alert, Oriented X3, CN II-XII Intact - Psychiatric Psychiatric Exam: Depressed - Skin Skin Exam: Other (sacral ulcer) Type of Lesion: negative: Rash - Vital Signs Vitals: Temperature 99.9 F Pulse Rate 99 Respiratory Rate 23 Blood Pressure [Left Arm] 131/61 Blood Pressure 140/96 O2 Sat by Pulse Oximetry 97 Course - Consultation Called: 19:38 Call Returned: 21:00 Consultation Comments: case discussed with DR. Rosas, admit ICU on antibiotics ,IVF and vasopressor if needed. ROR - Labs Reviewed Result Diagrams: 10/02/19 18:15 10/02/19 18:15 - XRAY XRAY Interpreted by: Radiologist - Labs Reviewed Laboratory: WBC 16.3 X10^3/uL (3.6-10.0) H 10/02/19 18:15 RBC 3.68 X10^6/uL (3.5-5.4) 10/02/19 18:15 Hgb 9.4 g/dL (12.0-16.0) L 10/02/19 18:15 Hct 28.9 % (36.0-47.0) L 10/02/19 18:15 MCV 78.7 fL (80.0-100.0) L 10/02/19 18:15 MCH 25.5 pg (27.0-34.0) L 10/02/19 18:15 MCHC 32.4 g/dL (33.0-35.0) L 10/02/19 18:15 RDW 16.1 % (11.6-16.5) 10/02/19 18:15 Plt Count 240 X10^3/uL (150.0-450.0) 10/02/19 18:15 Plt Count Comment Adequate (ADEQUATE) 10/02/19 18:15 MPV 7.7 fL (7.4-11.0) 10/02/19 18:15 Neut % (Auto) 93.5 % (42.0-75.0) H 10/02/19 18:15 Lymph % (Auto) 2.4 % (21.0-51.0) L 10/02/19 18:15 [place] % (Auto) 3.2 % (0.0-13.0) 10/02/19 18:15 Eos % (Auto) 0.3 % (0.9-2.9) L 10/02/19 18:15 Baso % (Auto) 0.6 % (0.2-1.0) 10/02/19 18:15 Neut # (Auto) 15.2 x10^3/uL (2.2-4.8) H 10/02/19 18:15 Lymph # (Auto) 0.4 X10^3/uL (1.3-2.9) L 10/02/19 18:15 [place] # (Auto) 0.5 x10^3/uL (0.3-0.8) 10/02/19 18:15 Eos # (Auto) 0.0 x10^3/uL (0.0-0.2) 10/02/19 18:15 Baso # (Auto) 0.1 X10^3/uL (0.0-0.1) 10/02/19 18:15 Absolute Nucleated RBC 0.0 /100WBC 10/02/19 18:15 Total Counted 100 10/02/19 18:15 Neutrophils % (Manual) 74 % (39-76) 10/02/19 18:15 Band Neutrophils % 10 % (0-10) 10/02/19 18:15 Lymphocytes % (Manual) 8 % (13-43) L 10/02/19 18:15 Monocytes % (Manual) 6 % (4-9) 10/02/19 18:15 Eosinophils % (Manual) 1 % (0-6) 10/02/19 18:15 Basophils % (Manual) 1 % (0-1) 10/02/19 18:15 Plt Morphology Comment Normal (NORMAL) 10/02/19 18:15 RBC Morphology Abnormal (NORMAL) A 10/02/19 18:15 Hypochromasia Slight A 10/02/19 18:15 Sodium 136 mmol/L (136-145) 10/02/19 18:15 Corrected Sodium TNP 10/02/19 18:15 Potassium 4.3 mmol/L (3.5-5.1) 10/02/19 18:15 Chloride 100 mmol/L (98-107) 10/02/19 18:15 Carbon Dioxide 27.7 mmol/L (21-32) 10/02/19 18:15 BUN 39 mg/dL (7-18) H 10/02/19 18:15 Creatinine 2.30 mg/dL (0.55-1.02) H 10/02/19 18:15 Est GFR (MDRD) Af Amer 27 (>60) L 10/02/19 18:15 Est GFR (MDRD) Non-Af 23 (>60) L 10/02/19 18:15 Glucose 105 mg/dL (65-99) H 10/02/19 18:15 Lactic Acid 1.9 mmol/L (0.4-2.0) 10/02/19 18:15 Calcium 9.2 mg/dL (8.5-10.1) 10/02/19 18:15 Corrected Calcium 10.2 mg/dL (8.5-10.1) H 10/02/19 18:15 Total Bilirubin 0.40 mg/dL (0.2-1.0) 10/02/19 18:15 AST 19 Units/L (15-37) 10/02/19 18:15 ALT 13 Units/L (12-78) 10/02/19 18:15 Alkaline Phosphatase 70 Units/L (46-116) 10/02/19 18:15 Creatine Kinase 42 Units/L (26-192) 10/02/19 18:15 CK-MB (CK-2) < 1.0 ng/mL (0-4.0) 10/02/19 18:15 CK/CKMB % Calc 2.4 % (<4) 10/02/19 18:15 Troponin I 0.08 ng/mL (0-1.5) 10/02/19 18:15 Total Protein 7.1 g/dL (6.4-8.2) 10/02/19 18:15 Albumin 2.7 g/dL (3.4-5.0) L 10/02/19 18:15 Globulin 4.4 g/dL (2.5-4.5) 10/02/19 18:15 Albumin/Globulin Ratio 0.6 Ratio (1.1-2.1) L 10/02/19 18:15 Specimen Type Catherized urine 10/02/19 18:35 Urine Color Yellow (YELLOW) 10/02/19 18:35 Urine Appearance Clear (CLEAR) 10/02/19 18:35 Urine pH 7.0 (5.0 - 8.0) 10/02/19 18:35 Ur Specific [place] 1.010 (1.000-1.030) 10/02/19 18:35 Urine Protein 2+ (NEGATIVE) 10/02/19 18:35 Urine Glucose (UA) Negative (NEGATIVE) 10/02/19 18:35 Urine Ketones Negative (NEGATIVE) 10/02/19 18:35 Urine Occult Blood 1+ (NEGATIVE) 10/02/19 18:35 Urine Nitrite Negative (NEGATIVE) 10/02/19 18:35 Urine Bilirubin Negative (NEGATIVE) 10/02/19 18:35 Urine Urobilinogen Normal (NORMAL) 10/02/19 18:35 Ur Leukocyte Esterase 2+ (NEGATIVE) 10/02/19 18:35 Urine RBC 5-10 /HPF (0-3) A 10/02/19 18:35 Urine WBC 20-30 /HPF (0-5) A 10/02/19 18:35 Ur Squamous Epith Cells Few /HPF (NEGATIVE) 10/02/19 18:35 Urine Bacteria 2+ /HPF (NEGATIVE) 10/02/19 18:35 Ur Culture Indicated? Yes/culture set up 10/02/19 18:35 - XRAY Xray Findings: chest:MPRESSION Cardiomegaly with pulmonary vascular congestion. Questionable bibasilar airspace disease as noted above. (STEPHAN HERNANDEZ) Opioid - Opioid Risk Tool Age (Stephan box if 16-45): No History of Preadolescent Sexual Abuse: No Total: 0 Total Score Risk Category: Low Risk - Diagnosis Discharge Problem: Sepsis Qualifiers: Sepsis type: sepsis due to unspecified organism Sepsis acute organ dysfunction status: unspecified Qualified Code(s): A41.9 - Sepsis, unspecified organism UTI (urinary tract infection) Qualifiers: Urinary tract infection type: acute cystitis Hematuria presence: with hematuria Qualified Code(s): N30.01 - Acute cystitis with hematuria - Discharge Plan Condition: Stable - Follow ups/Referrals Follow ups/Referrals: JANA TORIBIO [Primary Care Provider] - 3 days - Instructions
[2019-10-02] MEDS ORDERED: NS 1000 ML 1,000 ML ONE ×2 (18:09→19:50)
[2019-10-02 18:32] LABS: BASOPHILS # (AUTO) 0.1 X10^3/uL (0.0-0.1); LYMPHOCYTES # (AUTO) 0.4 X10^3/uL (1.3-2.9); MONOCYTES # (AUTO) 0.5 x10^3/uL (0.3-0.8); MONOCYTES % (AUTO) 3.2 % (0.0-13.0)
[2019-10-02 18:36] LABS: BASOPHILS % (AUTO) 0.6 % (0.2-1.0); EOSINOPHILS % (AUTO) 0.3 % (0.9-2.9); HEMATOCRIT 28.9 % (36.0-47.0); HEMOGLOBIN 9.4 g/dL (12.0-16.0); LYMPHOCYTES % (AUTO) 2.4 % (21.0-51.0); MEAN CORPUSCULAR HEMOGLOBIN 25.5 pg (27.0-34.0); MEAN CORPUSCULAR HGB CONC 32.4 g/dL (33.0-35.0); MEAN CORPUSCULAR VOLUME 78.7 fL (80.0-100.0); MEAN PLATELET VOLUME 7.7 fL (7.4-11.0); NEUTROPHILS # (AUTO) 15.2 x10^3/uL (2.2-4.8); NEUTROPHILS % (AUTO) 93.5 % (42.0-75.0); PLATELET COUNT 240 X10^3/uL (150.0-450.0); RED BLOOD COUNT 3.68 X10^6/uL (3.5-5.4); RED CELL DISTRIBUTION WIDTH 16.1 % (11.6-16.5); WHITE BLOOD COUNT 16.3 X10^3/uL (3.6-10.0)
--- NOTE | 2019-10-02 18:38 | RAD ---
HISTORYFEVERSTUDYCHEST, 1 VIEWCOMPARISONMarch 2019FINDINGSThe patient is rotated. The cardiac silhouette is enlarged. There is questionable bibasilar atelectasis and/or patchy infiltrate. A left-sided port is again demonstratedIMPRESSIONCardiomegaly with pulmonary vascular congestion.Questionable bibasilar airspace disease as noted above.Electronically signed by: LEONA PETERSON (Oct 02, 2019 18:37:12)
[2019-10-02 18:41] LABS: APPEARANCE,URINE CLEAR (CLEAR); BILIRUBIN,URINE NEGATIVE (NEGATIVE); BLOOD/HEMOGLOBIN,URINE 1+ (NEGATIVE); COLOR,URINE YELLOW (YELLOW); GLUCOSE, URINE NEGATIVE (NEGATIVE); KETONES,URINE NEGATIVE (NEGATIVE); LEUKOCYTE ESTERASE ,URINE 2+ (NEGATIVE); NITRITES,URINE NEGATIVE (NEGATIVE); PROTEIN,URINE 2+ (NEGATIVE); UROBILINOGEN,URINE NORMAL (NORMAL)
[2019-10-02 18:45] LABS: BLOOD UREA NITROGEN 39 mg/dL (7-18); CALCIUM 9.2 mg/dL (8.5-10.1); CARBON DIOXIDE 27.7 mmol/L (21-32); CHLORIDE 100 mmol/L (98-107); SODIUM 136 mmol/L (136-145); TROPONIN I 0.08 ng/mL (0-1.5); eGFR NON BLACK RACES 23 (>60)
[2019-10-02 18:47] LABS: BACTERIA,URINE 2+ /HPF (NEGATIVE); SQUAMOUS EPITHELIAL CELL,UR FEW /HPF (NEGATIVE)
[2019-10-02 18:49] LABS: ALANINE AMINOTRANSFERASE 13 Units/L (12-78); ALBUMIN 2.7 g/dL (3.4-5.0); ALKALINE PHOSPHATASE 70 Units/L (46-116); ASPARTATE AMINO TRANSFERASE 19 Units/L (15-37); CKMB % 2.4 % (<4); COR CA(FOR HYPOALB) 10.2 mg/dL (8.5-10.1); CREATINE KINASE 42 Units/L (26-192); CREATINE KINASE MB < 1.0 ng/mL (0-4.0); TOTAL PROTEIN 7.1 g/dL (6.4-8.2)
[2019-10-02 18:50] LABS: BAND NEUTROPHILS % 10 % (0-10); BASOPHILS % (MANUAL) 1 % (0-1); HYPOCHROMASIA SLIGHT; PLATELET MORPHOLOGY COMMENT NORMAL (NORMAL)
[2019-10-02] MEDS ORDERED: NS 1000 ML 1,000 ML IV ONE (19:50)
[2019-10-02] MEDS ORDERED: LEVAQUIN PREMIX IV 500 MG 500 MG/100 ML BAG IV ONE (21:18)
[2019-10-02] MEDS ORDERED: DOPAMINE IV PREMIX 400 MG/250 ML 400 MG/250 ML BAG IV ONE (21:35)
[2019-10-02] MEDS: DOPAMINE IV PREMIX 400 MG/250 ML 400 MG/250 ML BAG IV PRN (21:50)
[2019-10-02] MEDS ORDERED: LEVAQUIN PREMIX IV 500 MG 500 MG/100 ML BAG IV SCH (22:00)
[2019-10-02] MEDS ORDERED: NYSTATIN POWDER ONE (23:41)
[2019-10-02] MEDS: NYSTATIN POWDER TOP SCH (23:56)
[2019-10-03] MEDS: NS 1000 ML 1,000 ML IV SCH ×4 (00:04→17:03)
[2019-10-03] MEDS ORDERED: NS 1000 ML 1,000 ML ONE (01:11)
[2019-10-03] MEDS: DOPAMINE IV PREMIX 400 MG/250 ML 400 MG/250 ML BAG IV PRN ×2 (05:27→14:35)
[2019-10-03 06:08] LABS: BASOPHILS # (AUTO) 0.1 X10^3/uL (0.0-0.1); BASOPHILS % (AUTO) 0.4 % (0.2-1.0); EOSINOPHILS # (AUTO) 0.1 x10^3/uL (0.0-0.2); EOSINOPHILS % (AUTO) 0.3 % (0.9-2.9); HEMOGLOBIN 8.1 g/dL (12.0-16.0); LYMPHOCYTES # (AUTO) 1.7 X10^3/uL (1.3-2.9); LYMPHOCYTES % (AUTO) 7.8 % (21.0-51.0); MEAN CORPUSCULAR HEMOGLOBIN 25.6 pg (27.0-34.0); MEAN CORPUSCULAR HGB CONC 32.3 g/dL (33.0-35.0); MONOCYTES # (AUTO) 1.8 x10^3/uL (0.3-0.8); MONOCYTES % (AUTO) 8.1 % (0.0-13.0); NEUTROPHILS # (AUTO) 18.3 x10^3/uL (2.2-4.8); NEUTROPHILS % (AUTO) 83.4 % (42.0-75.0); PLATELET COUNT 252 X10^3/uL (150.0-450.0); RED BLOOD COUNT 3.17 X10^6/uL (3.5-5.4); RED CELL DISTRIBUTION WIDTH 16.6 % (11.6-16.5)
[2019-10-03 06:20] LABS: ALBUMIN 2.4 g/dL (3.4-5.0); CALCIUM 8.1 mg/dL (8.5-10.1); CARBON DIOXIDE 27.9 mmol/L (21-32); COR CA(FOR HYPOALB) 9.4 mg/dL (8.5-10.1); CREATININE 2.4 mg/dL (0.55-1.02); TOTAL PROTEIN 6.6 g/dL (6.4-8.2)
[2019-10-03 06:27] LABS: PLATELET MORPHOLOGY COMMENT NORMAL (NORMAL)
[2019-10-03] MEDS ORDERED: NS 1000 ML 1,000 ML IV ONE (09:06)
--- NOTE | 2019-10-03 10:12 | RAD ---
HISTORYSEPSIS AND UTISTUDYCHEST, 1 VIEWCOMPARISONPrevious chest radiograph from 10/02/2019FINDINGSGeneralized cardiomegaly mild vascular congestion is seen. These findings have not changed significantly since the previous exam. A left chest wall port is again noted with the tip of the catheter in the superior vena cava. Lungs are clear with no infiltrate or significant effusion on either sideIMPRESSIONCardiomegaly with pulmonary vascular congestion, unchanged since the previous exam from 10/02/2019Electronically signed by: KRYSTAL RIVERA (Oct 03, 2019 10:11:28)
[2019-10-03] MEDS: NYSTATIN POWDER TOP SCH ×2 (10:39→20:35)
[2019-10-03 12:42] VITALS: BMI 49.4
[2019-10-03] MEDS ORDERED: MAGNESIUM SULFATE 1 GRAM/100 mL PREMIX 1 G/100 ML BAG IV ONE (20:44)
[2019-10-03] MEDS ORDERED: LEVAQUIN PREMIX IV 750 MG 750 MG/150 ML BAG IV SCH (21:00)
[2019-10-03] MEDS ORDERED: POTASSIUM CHLORIDE 10 MEQ PO SCH (21:30)
[2019-10-03] MEDS: LEVEMIR SC SCH (21:41)
[2019-10-03] MEDS: BENTYL CAP 10 MG PO SCH (21:59)
[2019-10-03] MEDS: SINEMET (PLAIN) 10/100 MG PO SCH (21:59)
[2019-10-03] MEDS: COREG TAB 3.125 MG PO SCH (22:00)
[2019-10-03] MEDS: XANAX PO PRN (22:04)
[2019-10-03] MEDS: MICRO K EXTEN CAP 10 MEQ PO SCH (22:04)
[2019-10-04] MEDS: NS 1000 ML 1,000 ML IV SCH ×3 (00:05→09:59)
[2019-10-04] MEDS ORDERED: TYLENOL 325 MG TAB PO PRN (03:26)
[2019-10-04] MEDS ORDERED: TYLENOL 325 MG TAB PO ONE (03:26)
[2019-10-04] MEDS: NORCO 10/325 TAB PO PRN ×3 (05:31→21:42)
[2019-10-04 05:55] LABS: BASOPHILS # (AUTO) 0.1 X10^3/uL (0.0-0.1); BASOPHILS % (AUTO) 0.4 % (0.2-1.0); EOSINOPHILS # (AUTO) 0.3 x10^3/uL (0.0-0.2); EOSINOPHILS % (AUTO) 1.9 % (0.9-2.9); HEMOGLOBIN 7.7 g/dL (12.0-16.0); LYMPHOCYTES # (AUTO) 1.6 X10^3/uL (1.3-2.9); LYMPHOCYTES % (AUTO) 9.8 % (21.0-51.0); MEAN CORPUSCULAR HEMOGLOBIN 25.3 pg (27.0-34.0); MEAN CORPUSCULAR HGB CONC 31.9 g/dL (33.0-35.0); MEAN CORPUSCULAR VOLUME 79.3 fL (80.0-100.0); MEAN PLATELET VOLUME 7.7 fL (7.4-11.0); MONOCYTES % (AUTO) 6.4 % (0.0-13.0); NEUTROPHILS % (AUTO) 81.5 % (42.0-75.0); PLATELET COUNT 253 X10^3/uL (150.0-450.0); RED BLOOD COUNT 3.02 X10^6/uL (3.5-5.4); RED CELL DISTRIBUTION WIDTH 16.8 % (11.6-16.5); WHITE BLOOD COUNT 15.9 X10^3/uL (3.6-10.0)
[2019-10-04 06:07] LABS: ALBUMIN 2.2 g/dL (3.4-5.0); CALCIUM 8.3 mg/dL (8.5-10.1); CARBON DIOXIDE 27.5 mmol/L (21-32); COR CA(FOR HYPOALB) 9.7 mg/dL (8.5-10.1); CREATININE 1.6 mg/dL (0.55-1.02); MAGNESIUM 1.9 mg/dL (1.7-2.9); TOTAL PROTEIN 6.4 g/dL (6.4-8.2)
[2019-10-04 06:27] LABS: HYPOCHROMASIA SLIGHT; PLATELET MORPHOLOGY COMMENT NORMAL (NORMAL)
[2019-10-04 06:38] LABS: ERYTHROCYTE SEDIMENTATION RATE 119 MM/HOUR (0-20)
--- NOTE | 2019-10-04 07:22 | RAD ---
HISTORYChronic shortness of breathSTUDYCHEST, 1 [id number]/08/2020FINDINGSThere is a port present on the left. The heart is enlarged. No congestive heart failure is noted. No definite acute alveolar infiltrates or pleural effusions are identified. Mild interstitial lung changes are present. Bony thorax is unremarkable.IMPRESSIONCardiomegaly without congestive heart failureMild bilateral interstitial lung changes, stableElectronically signed by: JACKSON DAVE (Oct 04, 2019 07:21:20)
[2019-10-04] MEDS ORDERED: ARIPIPRAZOLE 30 MG PO SCH (09:00)
[2019-10-04] MEDS ORDERED: PATIENT'S HOME MEDICATION (Dexlansoprazole [Dexilant] 60 MG) PO SCH (09:00)
[2019-10-04] MEDS ORDERED: NS 500 ML IV 500 ML IV ONE (09:01)
[2019-10-04] MEDS: BENTYL CAP 10 MG PO SCH ×4 (10:20→21:41)
[2019-10-04] MEDS: COREG TAB 3.125 MG PO SCH ×2 (10:21→21:46)
[2019-10-04] MEDS: ABILIFY PO SCH (10:21)
[2019-10-04] MEDS: LEVEMIR SC SCH ×2 (10:22→22:10)
[2019-10-04] MEDS: PROTONIX INJ 40 MG VIAL IVP SCH (10:23)
[2019-10-04] MEDS: PEPCID TAB 20 MG PO SCH (10:23)
[2019-10-04] MEDS: MICRO K EXTEN CAP 10 MEQ PO SCH ×2 (10:23→21:43)
[2019-10-04] MEDS: NYSTATIN POWDER TOP SCH ×2 (10:25→21:45)
[2019-10-04] MEDS: SINEMET (PLAIN) 10/100 MG PO SCH ×2 (10:25→21:44)
[2019-10-04] MEDS: XANAX PO PRN ×2 (10:25→18:22)
[2019-10-04] MEDS: SYNTHROID 125 mcg TAB PO SCH (10:25)
[2019-10-04] MEDS ORDERED: NS 250 ML IV 250 ML IV ONE (10:57)
[2019-10-04] MEDS: MERREM VIAL 500 MG in NS 100 ML IV + SPIKE MINIBAG* 100 ML IV SCH ×2 (15:35→21:44)
[2019-10-04 15:58] LABS: HEMATOCRIT 28.1 % (36.0-47.0); HEMOGLOBIN 9.1 g/dL (12.0-16.0)
[2019-10-04] MEDS ORDERED: LASIX IVP ONE (16:00)
[2019-10-04] MEDS: ZOCOR TAB 40 MG PO SCH (21:42)
[2019-10-04] MEDS: TRICOR TAB 160 MG PO SCH (21:42)
[2019-10-04] MEDS: SNACK - Diabetic Appropriate PO SCH (21:46)
[2019-10-04] MEDS: CYMBALTA PO SCH (21:51)
--- NOTE | 2019-10-04 23:02 | DR.H&P ---
H&P - History & Physical for Day of: H&P Date: 10/02/19 - Chief Complaint Chief Complaint: FEVER, WEAKNESS, SOB - History of Present Illness History of Present Illness: IS A 64 YEAR OLD PATIENT OF PAT [facility]. SHE PRESENTED TO THE ER WITH COMPLAINTS OF WEAKNESS X 2 DAYS, FEVER, AND INTERMITTENT SHORTNESS OF BREATH. SHE REPORTS A DECUBITUS ULCER TO HER SACRUM. WOUND IS APPROXIMATELY 0.5 CM X 0.5 CM X 4 CM TUNNELS UP 4.5 CM. THERE IS ALSO REDNESS AND IRRITATION NOTED TO BREAST FOLDS AND ABDOMINAL FOLD. SHE REPORTS FOLLOW UP WITH HER WOUND DOCTOR ONE DAY PRIOR WITHOUT ANY CHANGES IN TREATMENT MADE. ON ARRIVAL TO THE ER, VITALS WERE 102.7-115-20-99%-99/53. LABS WERE OBTAINED. ABNORMAL LAB VALUES INCLUDE THE FOLLOWING: WBC 16.3, HGB 9.4, HCT 9.4, BUN 39, CREATININE 2.30, GLUCOSE 105. CARDIAC ENZYMES WITHIN NORMAL LIMITS. A URINALYSIS WAS OBTAINED AND REVEALED: WBC 20-30, RBC 5-10, BACTERIA 2+, LEUKOCYTES 2+. SHE WAS SWABBED FOR COVID-19. BLOOD AND URINE CULTURES WERE SET UP. CHEST XRAY REVEALED: Cardiomegaly with pulmonary vascular congestion. Questionable bibasilar airspace disease. SHE WAS GIVEN A NORMAL SALINE BOLUS, LEVAQUIN 5000MG IV X 1, MOTRIN 800MG PO X 1. SHE WAS ADMITTED FOR FURTHER EVALUATION AND TREATMENT OF SEPSIS AND UTI. SHE WAS STARTED ON NS AT 75 ML/HR, LEVAQUIN 500MG IV DAILY, AND A DOPAMINE DRIP. WE WILL REVIEW HER HOME MEDICATIONS. OTHERWISE, WE PLAN TO FOLLOW UP WITH AM LABS AND CONTINUE TO [facility]. - Past Medical History Past Medical History: Angina, Hypertension, Dyslipidemia, Diabetes, Depression, Anxiety, Hypothyroidism, COPD, Asthma, GERD, Arthritis, Kidney Stones, Headaches, CHF Additional Medical History: MORBID OBESITY; VITAMIN B12 DEFICIENCY; LUMBOSACAL RADICULOPATHY - Past Surgical History Surgical History: Abdominal Surgery, Bowel Resection, Hysterectomy, Ortho Surgery, Tonsillectomy, Lithotripsy - Family History Family Medical History: Diabetes Mellitus, [place] - Social History Does patient currently use any type of tobacco product: No Have you used tobacco products in the last 12 months: No Type of Tobacco Use: None Does any household member use tobacco: No Alcohol Use: None Drug Use: None - Medications Home Medications: oxycodone Allergy (Verified 10/02/19 18:05) CONTINUE taking the following medications acetaminophen-codeine 1 tab PO TID PRN 10/03/19 [History] carbidopa-levodopa 1 tab PO BID 10/03/19 [History] levothyroxine 125 mcg PO DAILY 10/03/19 [History] - Review of Systems Constitutional: See HPI, Fever, Weakness Eyes: No Symptoms Reported ENT: No Symptoms Reported Respiratory: Shortness of Breath Cardiovascular: No Symptoms Reported Gastrointestinal: No Symptoms Reported Genitourinary: Dysuria Musculoskeletal: No Symptoms Reported Skin: See HPI, Rash, Wound Neurological: Weakness - Physical Exam Vital Signs: Temperature 99.6 F Pulse Rate 81 Respiratory Rate 17 Blood Pressure [Left Arm] 131/61 Blood Pressure 187/79 O2 Sat by Pulse Oximetry 100 Oriented: Normal Eyes: Normal Ear: Normal Nose: Normal Throat: Normal Respiratory: Diminished Throughout Cardiovascular: Tachycardia : Normal Auscultation: Bowel Sounds: Normal Tenderness: Suprapubic, Mild Skin: Red, Wound (DECUBITUS ULCER TO SACRUM ) Musculoskeletal: Normal Psychiatric: Normal Mood Description: Calm Affect: Normal Speech Pattern: Clear - Assessment/Plan (1) UTI (urinary tract infection) Qualifiers: Urinary tract infection type: acute cystitis Hematuria presence: with hematuria Qualified Code(s): N30.01 - Acute cystitis with hematuria Status: Acute Plan: ADMIT, LEVAQUIN 500MG IV DAILY, IV FLUIDS, CONTINUE TO MONITOR (2) Sepsis Qualifiers: Sepsis type: sepsis due to unspecified organism Sepsis acute organ dysfunction status: unspecified Qualified Code(s): A41.9 - Sepsis, unspecified organism Status: Acute Plan: LEVAQUIN 500MG IV DAILY, IV FLUIDS, DOPAMINE DRIP, CONTINUE TO MONITOR (3) Fever Status: Acute (4) CKD (chronic kidney disease) stage 4, GFR 15-29 ml/min Status: Chronic (5) Sacral decubitus ulcer Qualifiers: Pressure injury stage: stage 3 Status: Chronic - Allergies Allergies/Adverse Reactions: Allergies Allergy/AdvReac Type Severity Reaction Status Date / Time oxycodone Allergy Verified 10/02/19 18:05
[2019-10-05] MEDS: NORCO 10/325 TAB PO PRN ×3 (05:45→23:14)
[2019-10-05 05:51] LABS: BASOPHILS % (AUTO) 0.3 % (0.2-1.0); EOSINOPHILS # (AUTO) 0.5 x10^3/uL (0.0-0.2); EOSINOPHILS % (AUTO) 3.5 % (0.9-2.9); HEMATOCRIT 26.2 % (36.0-47.0); HEMOGLOBIN 8.6 g/dL (12.0-16.0); LYMPHOCYTES # (AUTO) 2.1 X10^3/uL (1.3-2.9); LYMPHOCYTES % (AUTO) 15.2 % (21.0-51.0); MEAN CORPUSCULAR HEMOGLOBIN 25.9 pg (27.0-34.0); MEAN CORPUSCULAR HGB CONC 32.9 g/dL (33.0-35.0); MEAN CORPUSCULAR VOLUME 78.9 fL (80.0-100.0); MEAN PLATELET VOLUME 7.7 fL (7.4-11.0); MONOCYTES # (AUTO) 0.8 x10^3/uL (0.3-0.8); MONOCYTES % (AUTO) 5.8 % (0.0-13.0); NEUTROPHILS # (AUTO) 10.3 x10^3/uL (2.2-4.8); NEUTROPHILS % (AUTO) 75.2 % (42.0-75.0); PLATELET COUNT 282 X10^3/uL (150.0-450.0); RED BLOOD COUNT 3.32 X10^6/uL (3.5-5.4); RED CELL DISTRIBUTION WIDTH 16.4 % (11.6-16.5); WHITE BLOOD COUNT 13.7 X10^3/uL (3.6-10.0)
[2019-10-05] MEDS: MERREM VIAL 500 MG in NS 100 ML IV + SPIKE MINIBAG* 100 ML IV SCH ×3 (05:55→21:05)
[2019-10-05 06:13] LABS: PLATELET MORPHOLOGY COMMENT NORMAL (NORMAL)
[2019-10-05 06:23] LABS: ALANINE AMINOTRANSFERASE 8 Units/L (12-78); ALBUMIN 2.2 g/dL (3.4-5.0); ALKALINE PHOSPHATASE 55 Units/L (46-116); ASPARTATE AMINO TRANSFERASE 15 Units/L (15-37); BLOOD UREA NITROGEN 24 mg/dL (7-18); CALCIUM 8.7 mg/dL (8.5-10.1); CARBON DIOXIDE 29.6 mmol/L (21-32); CHLORIDE 104 mmol/L (98-107); COR CA(FOR HYPOALB) 10.1 mg/dL (8.5-10.1); CREATININE 1.51 mg/dL (0.55-1.02); SODIUM 138 mmol/L (136-145); TOTAL PROTEIN 6.5 g/dL (6.4-8.2); eGFR NON BLACK RACES 37 (>60)
[2019-10-05] MEDS: NS 1000 ML 1,000 ML IV SCH (06:24)
[2019-10-05] MEDS ORDERED: NS 100 ML IV 100 ML with VENOFER 400 MG IV NR ×2 (06:47)
[2019-10-05] MEDS ORDERED: LR 1000 ML IV 500 ML IV ONE (06:48)
--- NOTE | 2019-10-05 07:21 | RAD ---
HISTORYShortness of breathSTUDYCHEST, 1 [id number]/09/2020FINDINGSThere is a port present on the left. The heart is enlarged. No congestive heart failure is noted. No acute alveolar infiltrates or pleural effusions are identified. Mild interstitial lung changes are present, stable.IMPRESSIONCardiomegaly without congestive heart failureNo acute infiltratesMild interstitial lung changes, stableElectronically signed by: JACKSON DAVE (Oct 05, 2019 07:20:30)
[2019-10-05] MEDS: ABILIFY PO SCH (08:30)
[2019-10-05] MEDS: BENTYL CAP 10 MG PO SCH ×4 (08:30→21:01)
[2019-10-05] MEDS: COREG TAB 3.125 MG PO SCH ×2 (08:30→21:01)
[2019-10-05] MEDS: LEVEMIR SC SCH ×2 (08:30→21:06)
[2019-10-05] MEDS: FOLIC ACID TAB 1 MG PO SCH (08:30)
[2019-10-05] MEDS: MICRO K EXTEN CAP 10 MEQ PO SCH ×2 (08:30→21:08)
[2019-10-05] MEDS: PEPCID TAB 20 MG PO SCH (08:30)
[2019-10-05] MEDS: XANAX PO PRN ×2 (08:40→18:36)
[2019-10-05] MEDS: NYSTATIN POWDER TOP SCH ×2 (08:50→21:09)
[2019-10-05] MEDS: MVI INJ (ADULT) IV SCH (08:50)
[2019-10-05] MEDS: SYNTHROID 125 mcg TAB PO SCH (08:51)
[2019-10-05] MEDS: SINEMET (PLAIN) 10/100 MG PO SCH ×2 (08:51→21:08)
[2019-10-05] MEDS: PROTONIX INJ 40 MG VIAL IVP SCH (08:51)
[2019-10-05] MEDS: SNACK - Diabetic Appropriate PO SCH (20:30)
[2019-10-05] MEDS: TRICOR TAB 160 MG PO SCH (21:05)
[2019-10-05] MEDS: ZOCOR TAB 40 MG PO SCH (21:05)
[2019-10-05] MEDS: CYMBALTA PO SCH (21:06)
[2019-10-06 04:56] LABS: BASOPHILS # (AUTO) 0.1 X10^3/uL (0.0-0.1); BASOPHILS % (AUTO) 0.6 % (0.2-1.0); EOSINOPHILS # (AUTO) 0.7 x10^3/uL (0.0-0.2); EOSINOPHILS % (AUTO) 5.5 % (0.9-2.9); HEMOGLOBIN 9.2 g/dL (12.0-16.0); LYMPHOCYTES # (AUTO) 2.3 X10^3/uL (1.3-2.9); MEAN CORPUSCULAR HEMOGLOBIN 25.7 pg (27.0-34.0); MEAN CORPUSCULAR HGB CONC 32.8 g/dL (33.0-35.0); MEAN CORPUSCULAR VOLUME 78.5 fL (80.0-100.0); MEAN PLATELET VOLUME 7.8 fL (7.4-11.0); MONOCYTES # (AUTO) 0.6 x10^3/uL (0.3-0.8); MONOCYTES % (AUTO) 5.3 % (0.0-13.0); NEUTROPHILS # (AUTO) 8.4 x10^3/uL (2.2-4.8); NEUTROPHILS % (AUTO) 69.6 % (42.0-75.0); PLATELET COUNT 311 X10^3/uL (150.0-450.0); RED BLOOD COUNT 3.57 X10^6/uL (3.5-5.4); RED CELL DISTRIBUTION WIDTH 16.4 % (11.6-16.5); WHITE BLOOD COUNT 12.1 X10^3/uL (3.6-10.0)
[2019-10-06 05:09] LABS: ALANINE AMINOTRANSFERASE 8 Units/L (12-78); ALBUMIN 2.2 g/dL (3.4-5.0); ALKALINE PHOSPHATASE 53 Units/L (46-116); ASPARTATE AMINO TRANSFERASE 16 Units/L (15-37); BLOOD UREA NITROGEN 19 mg/dL (7-18); CALCIUM 8.8 mg/dL (8.5-10.1); CARBON DIOXIDE 29.2 mmol/L (21-32); CHLORIDE 105 mmol/L (98-107); COR CA(FOR HYPOALB) 10.2 mg/dL (8.5-10.1); CREATININE 1.34 mg/dL (0.55-1.02); SODIUM 139 mmol/L (136-145); TOTAL PROTEIN 6.5 g/dL (6.4-8.2); eGFR NON BLACK RACES 42 (>60)
[2019-10-06 05:19] LABS: PLATELET MORPHOLOGY COMMENT NORMAL (NORMAL)
--- NOTE | 2019-10-06 05:48 | RAD ---
Chest AP portableIndication: DyspneaCOMPARISONApril 2019FINDINGSCardiomegaly again noted. There is no pneumothorax or large effusion. Lung bases are poorly evaluated. Port-A-Cath tip is over the SVC. Monitoring leads obscure detail.IMPRESSION: Cardiomegaly without severe CHF. Chronic lung changes noted.Electronically signed by: KEEGAN KUMARI (Oct 06, 2019 05:47:01)
[2019-10-06] MEDS: MERREM VIAL 500 MG in NS 100 ML IV + SPIKE MINIBAG* 100 ML IV SCH ×3 (05:55→21:03)
[2019-10-06] MEDS: NORCO 10/325 TAB PO PRN ×3 (06:26→21:30)
[2019-10-06] MEDS: NS 1000 ML 1,000 ML IV SCH ×4 (08:56→19:19)
[2019-10-06] MEDS: BENTYL CAP 10 MG PO SCH ×2 (09:01→13:08)
[2019-10-06] MEDS: ABILIFY PO SCH (09:01)
[2019-10-06] MEDS: FOLIC ACID TAB 1 MG PO SCH (09:02)
[2019-10-06] MEDS: COREG TAB 3.125 MG PO SCH ×2 (09:02→20:39)
[2019-10-06] MEDS: MICRO K EXTEN CAP 10 MEQ PO SCH ×2 (09:03→20:40)
[2019-10-06] MEDS: PEPCID TAB 20 MG PO SCH (09:04)
[2019-10-06] MEDS: PROTONIX INJ 40 MG VIAL IVP SCH (09:04)
[2019-10-06] MEDS: SINEMET (PLAIN) 10/100 MG PO SCH ×2 (09:05→20:40)
[2019-10-06] MEDS: SYNTHROID 125 mcg TAB PO SCH (09:05)
[2019-10-06] MEDS: MVI INJ (ADULT) IV SCH (09:06)
[2019-10-06] MEDS: LEVEMIR SC SCH (09:21)
[2019-10-06] MEDS: XANAX PO PRN ×2 (09:22→21:30)
[2019-10-06] MEDS: NYSTATIN POWDER TOP SCH ×2 (09:30→20:41)
[2019-10-06] MEDS ORDERED: NS 100 ML IV 100 ML with VENOFER 400 MG IV NR ×4 (15:38→15:44)
[2019-10-06] MEDS: ZANAFLEX PO PRN (19:22)
[2019-10-06] MEDS ORDERED: LEVEMIR SC ONE (20:29)
[2019-10-06] MEDS: SNACK - Diabetic Appropriate PO SCH (20:39)
[2019-10-06] MEDS: TRICOR TAB 160 MG PO SCH (20:40)
[2019-10-06] MEDS: ZOCOR TAB 40 MG PO SCH (20:42)
[2019-10-07] MEDS: NS 1000 ML 1,000 ML IV SCH ×4 (02:11→17:51)
[2019-10-07] MEDS: MVI INJ (ADULT) IV SCH ×3 (02:12→16:49)
[2019-10-07] MEDS: NORCO 10/325 TAB PO PRN ×4 (04:44→22:59)
[2019-10-07 05:00] LABS: BASOPHILS # (AUTO) 0.1 X10^3/uL (0.0-0.1); BASOPHILS % (AUTO) 0.5 % (0.2-1.0); EOSINOPHILS # (AUTO) 0.8 x10^3/uL (0.0-0.2); HEMATOCRIT 28.6 % (36.0-47.0); HEMOGLOBIN 9.3 g/dL (12.0-16.0); LYMPHOCYTES # (AUTO) 2.6 X10^3/uL (1.3-2.9); LYMPHOCYTES % (AUTO) 19.4 % (21.0-51.0); MEAN CORPUSCULAR HEMOGLOBIN 25.7 pg (27.0-34.0); MEAN CORPUSCULAR HGB CONC 32.5 g/dL (33.0-35.0); MEAN PLATELET VOLUME 7.5 fL (7.4-11.0); MONOCYTES # (AUTO) 0.7 x10^3/uL (0.3-0.8); MONOCYTES % (AUTO) 4.9 % (0.0-13.0); NEUTROPHILS # (AUTO) 9.4 x10^3/uL (2.2-4.8); NEUTROPHILS % (AUTO) 69.2 % (42.0-75.0); PLATELET COUNT 339 X10^3/uL (150.0-450.0); RED BLOOD COUNT 3.62 X10^6/uL (3.5-5.4); RED CELL DISTRIBUTION WIDTH 16.7 % (11.6-16.5); WHITE BLOOD COUNT 13.6 X10^3/uL (3.6-10.0)
[2019-10-07] MEDS: MERREM VIAL 500 MG in NS 100 ML IV + SPIKE MINIBAG* 100 ML IV SCH ×3 (05:11→21:01)
[2019-10-07 05:16] LABS: ALANINE AMINOTRANSFERASE 6 Units/L (12-78); ALBUMIN 2.2 g/dL (3.4-5.0); ALKALINE PHOSPHATASE 49 Units/L (46-116); ASPARTATE AMINO TRANSFERASE 12 Units/L (15-37); BLOOD UREA NITROGEN 18 mg/dL (7-18); CALCIUM 8.8 mg/dL (8.5-10.1); CARBON DIOXIDE 28.5 mmol/L (21-32); CHLORIDE 106 mmol/L (98-107); COR CA(FOR HYPOALB) 10.2 mg/dL (8.5-10.1); CREATININE 1.21 mg/dL (0.55-1.02); SODIUM 139 mmol/L (136-145); TOTAL PROTEIN 6.3 g/dL (6.4-8.2); eGFR NON BLACK RACES 47 (>60)
[2019-10-07 05:18] LABS: BAND NEUTROPHILS % 4 % (0-10); HYPOCHROMASIA SLIGHT; PLATELET MORPHOLOGY COMMENT NORMAL (NORMAL)
[2019-10-07] MEDS: ABILIFY PO SCH (08:38)
[2019-10-07] MEDS: FOLIC ACID TAB 1 MG PO SCH (08:39)
[2019-10-07] MEDS: PEPCID TAB 20 MG PO SCH (08:39)
[2019-10-07] MEDS: MICRO K EXTEN CAP 10 MEQ PO SCH ×2 (08:40→20:35)
[2019-10-07] MEDS: SINEMET (PLAIN) 10/100 MG PO SCH ×2 (08:40→20:37)
[2019-10-07] MEDS: PROTONIX INJ 40 MG VIAL IVP SCH (08:41)
[2019-10-07] MEDS: COREG TAB 3.125 MG PO SCH ×2 (08:50→20:35)
[2019-10-07] MEDS ORDERED: NS 100 ML IV 100 ML with VENOFER 400 MG IV NR ×4 (09:00)
[2019-10-07] MEDS: XANAX PO PRN ×2 (09:30→20:46)
[2019-10-07] MEDS: SYNTHROID 125 mcg TAB PO SCH (09:51)
[2019-10-07] MEDS: NYSTATIN POWDER TOP SCH ×2 (09:52→20:36)
[2019-10-07] MEDS: ZANAFLEX PO PRN (14:55)
[2019-10-07] MEDS: REQUIP PO SCH (20:36)
[2019-10-07] MEDS: SNACK - Diabetic Appropriate PO SCH (20:37)
[2019-10-07] MEDS: TRICOR TAB 160 MG PO SCH (20:37)
[2019-10-07] MEDS: ZOCOR TAB 40 MG PO SCH (20:37)
[2019-10-08] MEDS: ZANAFLEX PO PRN ×2 (03:20→23:16)
[2019-10-08] MEDS: MERREM VIAL 500 MG in NS 100 ML IV + SPIKE MINIBAG* 100 ML IV SCH ×3 (05:18→21:00)
[2019-10-08] MEDS: NORCO 10/325 TAB PO PRN ×3 (05:21→21:00)
[2019-10-08 05:25] LABS: BASOPHILS # (AUTO) 0.1 X10^3/uL (0.0-0.1); BASOPHILS % (AUTO) 0.5 % (0.2-1.0); EOSINOPHILS # (AUTO) 0.8 x10^3/uL (0.0-0.2); EOSINOPHILS % (AUTO) 5.9 % (0.9-2.9); HEMATOCRIT 27.6 % (36.0-47.0); LYMPHOCYTES # (AUTO) 2.3 X10^3/uL (1.3-2.9); LYMPHOCYTES % (AUTO) 17.7 % (21.0-51.0); MEAN CORPUSCULAR HEMOGLOBIN 25.8 pg (27.0-34.0); MEAN CORPUSCULAR HGB CONC 32.7 g/dL (33.0-35.0); MEAN CORPUSCULAR VOLUME 78.9 fL (80.0-100.0); MEAN PLATELET VOLUME 7.3 fL (7.4-11.0); MONOCYTES # (AUTO) 0.7 x10^3/uL (0.3-0.8); MONOCYTES % (AUTO) 5.5 % (0.0-13.0); NEUTROPHILS % (AUTO) 70.4 % (42.0-75.0); PLATELET COUNT 352 X10^3/uL (150.0-450.0); RED BLOOD COUNT 3.49 X10^6/uL (3.5-5.4); RED CELL DISTRIBUTION WIDTH 16.6 % (11.6-16.5); WHITE BLOOD COUNT 12.7 X10^3/uL (3.6-10.0)
[2019-10-08 05:43] LABS: ALBUMIN 2.2 g/dL (3.4-5.0); CALCIUM 8.7 mg/dL (8.5-10.1); CARBON DIOXIDE 27.6 mmol/L (21-32); COR CA(FOR HYPOALB) 10.1 mg/dL (8.5-10.1); CREATININE 1.17 mg/dL (0.55-1.02); TOTAL PROTEIN 6.1 g/dL (6.4-8.2)
[2019-10-08 06:14] LABS: PLATELET MORPHOLOGY COMMENT NORMAL (NORMAL)
[2019-10-08 06:15] LABS: HYPOCHROMASIA SLIGHT
[2019-10-08] MEDS: SYNTHROID 125 mcg TAB PO SCH (08:44)
[2019-10-08] MEDS: FOLIC ACID TAB 1 MG PO SCH (08:44)
[2019-10-08] MEDS: XANAX PO PRN ×2 (08:44→16:41)
[2019-10-08] MEDS: SINEMET (PLAIN) 10/100 MG PO SCH ×2 (08:44→20:56)
[2019-10-08] MEDS: PEPCID TAB 20 MG PO SCH (08:44)
[2019-10-08] MEDS: REQUIP PO SCH ×2 (08:45→20:55)
[2019-10-08] MEDS: MICRO K EXTEN CAP 10 MEQ PO SCH ×2 (08:45→20:55)
[2019-10-08] MEDS: PROTONIX INJ 40 MG VIAL IVP SCH (08:45)
[2019-10-08] MEDS: COREG TAB 3.125 MG PO SCH ×2 (08:45→20:54)
[2019-10-08] MEDS: ABILIFY PO SCH (08:46)
[2019-10-08] MEDS: NS 1000 ML 1,000 ML IV SCH ×3 (10:01→17:02)
[2019-10-08] MEDS: MVI INJ (ADULT) IV SCH (10:02)
[2019-10-08] MEDS: NYSTATIN POWDER TOP SCH ×2 (10:02→20:55)
[2019-10-08] MEDS: ZOCOR TAB 40 MG PO SCH (20:56)
[2019-10-08] MEDS: TRICOR TAB 160 MG PO SCH (20:56)
[2019-10-08] MEDS: SNACK - Diabetic Appropriate PO SCH (22:14)
--- NOTE | 2019-10-08 22:56 | PCM.PROG ---
Progress Note - Progress Note for Day of Date of Exam: 10/08/19 - Subjective Subjective: IS BEING TREATED FOR UROSEPSIS, BACTEREMIA, FEVER, AND A SACRAL DECUBITUS ULCER. TODAY, SHE IS ALERT AND ORIENTED, LYING IN BED ON MORNING ROUNDS. SHE REPORTS WEAKNESS, OTHERWISE, DENIES COMPLAINTS. SHE HAS BEEN AFEBRILE. ON EXAMINATION, HEART IS REGULAR IN RATE AND RHYTHM. BILATERAL LUNGS ARE NOTED WITH DIMINISHED LUNG SOUND THROUGHOUT. ABDOMEN IS ROUND, SOFT, AND NON-TENDER WITH NORMAL BOWEL SOUNDS NOTED IN ALL QUADRANTS. HER VITALS THIS MORNING ARE: 97.6-74-20-97%-175/77. LABS WERE OBTAINED. ABNORMAL LAB VALUES INCLUDE THE FOLLOWING: WBC 12.7, RBC 3.49, HGB 9.0, HCT 27.6, CREATININE 1.17, GLUCOSE 151, FERRITIN 344, AST 14, ALT 7, TOTAL PROTEIN 6.1, ALBUMIN 2.2, VITAMIN B12 1317. URINE CULTURE IS POSITIVE FOR PROTEUS MIRABILIS. BLOOD CULTURE IS POSITIVE FOR KLEBSIELLA PNEUMONIAE. SHE IS CURRENTLY RECEIVING MEROPENEM 500MG IV TID, NS AT 75 ML/HR, PROTONIX 40 G IV DAILY, AND HOME MEDICATIONS WERE RESUMED. WE WILL CONSULT WITH HOME HEALTH FOR IV ANTIBIOTICS. OTHERWISE, WE WILL FOLLOW UP WITH AM LABS AND CONTINUE TO MONITOR. - Past Medical Family Social History Past Med/Fam/Surg Hx: No changes since H&P Allergies: Allergies oxycodone Allergy (Verified 10/02/19 18:05) - Review of Systems ROS: No change since H&P - Vital Signs and I&O's Vital Signs: Temperature 97.9 F Pulse Rate [Left Brachial] 79 Pulse Rate 82 Respiratory Rate 22 Blood Pressure [Left Arm] 188/82 Blood Pressure 173/68 O2 Sat by Pulse Oximetry 99 Intake and Output: Intake & Output 10/06/19 10/07/19 10/08/19 10/09/19 11:59 11:59 11:59 11:59 Intake Total 3546 / 3546 3068 / 3068 2687 / 2687 720 / 720 Output Total 2600 / 2600 2975 / 2975 2400 / 2400 1200 / 1200 Balance 946 / 946 93 / 93 287 / 287 -480 / -480 - Physical Exam Oriented: Normal Eyes: Normal Ear: Normal Nose: Normal Throat: Normal Respiratory: Generalized, Diminished Cardiovascular: Normal : Normal Auscultation: Bowel Sounds: Normal Palpation: Normal Tenderness: Normal Skin: Red, Wound (DECUBITUS ULCER TO SACRUM ) Musculoskeletal: Normal Psychiatric: Normal Mood Description: Calm Affect: Normal Speech Pattern: Clear, Appropriate - Laboratory and Diagnostics Result Diagrams: 10/08/19 04:17 10/08/19 04:17 Labs: 10/02/19 18:15 Blood Blood Culture - Final Klebsiella Pneumoniae 10/02/19 22:45 Blood Blood Culture - Final 10/02/19 18:15 Urine,Catheterized Urine Culture - Final Proteus [facility] WBC 12.7 X10^3/uL (3.6-10.0) H 10/08/19 04:17 RBC 3.49 X10^6/uL (3.5-5.4) L 10/08/19 04:17 Hgb 9.0 g/dL (12.0-16.0) L 10/08/19 04:17 Hct 27.6 % (36.0-47.0) L 10/08/19 04:17 MCV 78.9 fL (80.0-100.0) L 10/08/19 04:17 MCH 25.8 pg (27.0-34.0) L 10/08/19 04:17 MCHC 32.7 g/dL (33.0-35.0) L 10/08/19 04:17 RDW 16.6 % (11.6-16.5) H 10/08/19 04:17 Plt Count 352 X10^3/uL (150.0-450.0) 10/08/19 04:17 Plt Count Comment Adequate (ADEQUATE) 10/08/19 04:17 MPV 7.3 fL (7.4-11.0) L 10/08/19 04:17 Neut % (Auto) 70.4 % (42.0-75.0) 10/08/19 04:17 Lymph % (Auto) 17.7 % (21.0-51.0) L 10/08/19 04:17 [place] % (Auto) 5.5 % (0.0-13.0) 10/08/19 04:17 Eos % (Auto) 5.9 % (0.9-2.9) H 10/08/19 04:17 Baso % (Auto) 0.5 % (0.2-1.0) 10/08/19 04:17 Neut # (Auto) 9.0 x10^3/uL (2.2-4.8) H 10/08/19 04:17 Lymph # (Auto) 2.3 X10^3/uL (1.3-2.9) 10/08/19 04:17 [place] # (Auto) 0.7 x10^3/uL (0.3-0.8) 10/08/19 04:17 Eos # (Auto) 0.8 x10^3/uL (0.0-0.2) H 10/08/19 04:17 Baso # (Auto) 0.1 X10^3/uL (0.0-0.1) 10/08/19 04:17 Absolute Nucleated RBC 0.0 /100WBC 10/08/19 04:17 Total Counted 100 10/08/19 04:17 Neutrophils % (Manual) 70 % (39-76) 10/08/19 04:17 Band Neutrophils % 4 % (0-10) 10/07/19 04:29 Lymphocytes % (Manual) 19 % (13-43) 10/08/19 04:17 Monocytes % (Manual) 2 % (4-9) L 10/08/19 04:17 Eosinophils % (Manual) 9 % (0-6) H 10/08/19 04:17 Basophils % (Manual) 1 % (0-1) 10/02/19 18:15 Plt Morphology Comment Normal (NORMAL) 10/08/19 04:17 RBC Morphology Abnormal (NORMAL) A 10/08/19 04:17 Hypochromasia Slight A 10/08/19 04:17 ESR 119 MM/HOUR (0-20) H 10/04/19 05:22 Sodium 139 mmol/L (136-145) 10/08/19 04:17 Corrected Sodium 140 mmol/L (136-145) 10/08/19 04:17 Potassium 4.9 mmol/L (3.5-5.1) 10/08/19 04:17 Chloride 106 mmol/L (98-107) 10/08/19 04:17 Carbon Dioxide 27.6 mmol/L (21-32) 10/08/19 04:17 BUN 16 mg/dL (7-18) 10/08/19 04:17 Creatinine 1.17 mg/dL (0.55-1.02) H 10/08/19 04:17 Est GFR (MDRD) Af Amer 60 (>60) 10/08/19 04:17 Est GFR (MDRD) Non-Af 49 (>60) L 10/08/19 04:17 Glucose 151 mg/dL (65-99) H 10/08/19 04:17 Lactic Acid 1.9 mmol/L (0.4-2.0) 10/02/19 18:15 Calcium 8.7 mg/dL (8.5-10.1) 10/08/19 04:17 Corrected Calcium 10.1 mg/dL (8.5-10.1) 10/08/19 04:17 Magnesium 1.9 mg/dL (1.7-2.9) 10/04/19 05:22 Iron 50 ug/dL (50-175) 10/07/19 04:29 Transferrin 265 mg/dL (202-364) 10/07/19 04:29 Ferritin 344 ng/mL (8-252) H 10/07/19 04:29 Total Bilirubin 0.20 mg/dL (0.2-1.0) 10/08/19 04:17 AST 14 Units/L (15-37) L 10/08/19 04:17 ALT 7 Units/L (12-78) L 10/08/19 04:17 Alkaline Phosphatase 46 Units/L (46-116) 10/08/19 04:17 Creatine Kinase 42 Units/L (26-192) 10/02/19 18:15 CK-MB (CK-2) < 1.0 ng/mL (0-4.0) 10/02/19 18:15 CK/CKMB % Calc 2.4 % (<4) 10/02/19 18:15 Troponin I 0.08 ng/mL (0-1.5) 10/02/19 18:15 C-Reactive Protein 239.10 mg/L (0-3.0) H 10/04/19 05:22 Total Protein 6.1 g/dL (6.4-8.2) L 10/08/19 04:17 Albumin 2.2 g/dL (3.4-5.0) L 10/08/19 04:17 Globulin 3.9 g/dL (2.5-4.5) 10/08/19 04:17 Albumin/Globulin Ratio 0.6 Ratio (1.1-2.1) L 10/08/19 04:17 Vitamin B12 1317 pg/mL (193-986) H 10/07/19 04:29 Folate 12.0 ng/mL (>8.6) 10/07/19 04:29 Specimen Type Catherized urine 10/02/19 18:35 Urine Color Yellow (YELLOW) 10/02/19 18:35 Urine Appearance Clear (CLEAR) 10/02/19 18:35 Urine pH 7.0 (5.0 - 8.0) 10/02/19 18:35 Ur Specific [place] 1.010 (1.000-1.030) 10/02/19 18:35 Urine Protein 2+ (NEGATIVE) 10/02/19 18:35 Urine Glucose (UA) Negative (NEGATIVE) 10/02/19 18:35 Urine Ketones Negative (NEGATIVE) 10/02/19 18:35 Urine Occult Blood 1+ (NEGATIVE) 10/02/19 18:35 Urine Nitrite Negative (NEGATIVE) 10/02/19 18:35 Urine Bilirubin Negative (NEGATIVE) 10/02/19 18:35 Urine Urobilinogen Normal (NORMAL) 10/02/19 18:35 Ur Leukocyte Esterase 2+ (NEGATIVE) 10/02/19 18:35 Urine RBC 5-10 /HPF (0-3) A 10/02/19 18:35 Urine WBC 20-30 /HPF (0-5) A 10/02/19 18:35 Ur Squamous Epith Cells Few /HPF (NEGATIVE) 10/02/19 18:35 Urine Bacteria 2+ /HPF (NEGATIVE) 10/02/19 18:35 Ur Culture Indicated? Yes/culture set up 10/02/19 18:35 Stool Description 70g formed brown 10/04/19 10:28 Stl Occult Blood (IFOB) Positive (NEGATIVE) A 10/04/19 10:28 Miscellaneous Test Covid 19 10/02/19 18:15 Blood Type O POSITIVE 10/04/19 09:28 Antibody Screen Negative 10/04/19 09:28 Crossmatch See Detail 10/04/19 09:28 - Plan (1) UTI (urinary tract infection) Status: Acute Qualifiers: Urinary tract infection type: acute cystitis Hematuria presence: with hematuria Qualified Code(s): N30.01 - Acute cystitis with hematuria Plan: MEROPENEM 500MG IV Q8H, IV FLUIDS, CONTINUE TO MONITOR (2) Sepsis Status: Acute Qualifiers: Sepsis type: sepsis due to unspecified organism Sepsis acute organ dysfunction status: unspecified Qualified Code(s): A41.9 - Sepsis, unspecified organism Plan: MEROPENEM 500MG IV Q8H, IV FLUIDS, CONTINUE TO MONITOR (3) Fever Status: Acute Qualifiers: Fever type: unspecified Qualified Code(s): R50.9 - Fever, unspecified (4) CKD (chronic kidney disease) stage 4, GFR 15-29 ml/min Status: Chronic (5) Sacral decubitus ulcer Status: Chronic Qualifiers: Pressure injury stage: stage 3
[2019-10-09 05:02] LABS: BASOPHILS # (AUTO) 0.1 X10^3/uL (0.0-0.1); BASOPHILS % (AUTO) 0.7 % (0.2-1.0); EOSINOPHILS # (AUTO) 0.8 x10^3/uL (0.0-0.2); EOSINOPHILS % (AUTO) 7.2 % (0.9-2.9); HEMATOCRIT 30.3 % (36.0-47.0); HEMOGLOBIN 9.7 g/dL (12.0-16.0); LYMPHOCYTES # (AUTO) 2.4 X10^3/uL (1.3-2.9); LYMPHOCYTES % (AUTO) 20.8 % (21.0-51.0); MEAN CORPUSCULAR HEMOGLOBIN 25.8 pg (27.0-34.0); MEAN CORPUSCULAR VOLUME 80.5 fL (80.0-100.0); MEAN PLATELET VOLUME 7.3 fL (7.4-11.0); MONOCYTES # (AUTO) 0.8 x10^3/uL (0.3-0.8); MONOCYTES % (AUTO) 6.6 % (0.0-13.0); NEUTROPHILS # (AUTO) 7.4 x10^3/uL (2.2-4.8); NEUTROPHILS % (AUTO) 64.7 % (42.0-75.0); PLATELET COUNT 363 X10^3/uL (150.0-450.0); RED BLOOD COUNT 3.76 X10^6/uL (3.5-5.4); RED CELL DISTRIBUTION WIDTH 16.6 % (11.6-16.5); WHITE BLOOD COUNT 11.5 X10^3/uL (3.6-10.0)
[2019-10-09 05:12] LABS: ALANINE AMINOTRANSFERASE 12 Units/L (12-78); ALBUMIN 2.5 g/dL (3.4-5.0); ALKALINE PHOSPHATASE 49 Units/L (46-116); ASPARTATE AMINO TRANSFERASE 15 Units/L (15-37); BLOOD UREA NITROGEN 16 mg/dL (7-18); CARBON DIOXIDE 28.2 mmol/L (21-32); CHLORIDE 105 mmol/L (98-107); COR CA(FOR HYPOALB) 10.2 mg/dL (8.5-10.1); COR NA(FOR HYPERGLY) 141 mmol/L (136-145); CREATININE 1.07 mg/dL (0.55-1.02); SODIUM 139 mmol/L (136-145); TOTAL PROTEIN 6.6 g/dL (6.4-8.2); eGFR NON BLACK RACES 55 (>60)
[2019-10-09 05:28] LABS: BAND NEUTROPHILS % 3 % (0-10); PLATELET MORPHOLOGY COMMENT NORMAL (NORMAL)
[2019-10-09] MEDS: MERREM VIAL 500 MG in NS 100 ML IV + SPIKE MINIBAG* 100 ML IV SCH (05:50)
[2019-10-09] MEDS: NORCO 10/325 TAB PO PRN (05:51)
[2019-10-09] MEDS: NS 1000 ML 1,000 ML IV SCH ×4 (06:28→10:05)
[2019-10-09] MEDS: MVI INJ (ADULT) IV SCH ×2 (06:29→10:05)
[2019-10-09 07:44] VITALS: BP 180/96
[2019-10-09] MEDS: ABILIFY PO SCH (08:46)
[2019-10-09] MEDS: COREG TAB 3.125 MG PO SCH (08:46)
[2019-10-09] MEDS: FOLIC ACID TAB 1 MG PO SCH (08:46)
[2019-10-09] MEDS: PROTONIX INJ 40 MG VIAL IVP SCH (08:47)
[2019-10-09] MEDS: PEPCID TAB 20 MG PO SCH (08:47)
[2019-10-09] MEDS: NYSTATIN POWDER TOP SCH (08:47)
[2019-10-09] MEDS: MICRO K EXTEN CAP 10 MEQ PO SCH (08:47)
[2019-10-09] MEDS: SYNTHROID 125 mcg TAB PO SCH (08:48)
[2019-10-09] MEDS: REQUIP PO SCH (08:48)
[2019-10-09] MEDS: SINEMET (PLAIN) 10/100 MG PO SCH (08:48)
[2019-10-09] MEDS ORDERED: INVANZ INJ 1 GM VIAL 1 GM in NS 100 ML IV + SPIKE MINIBAG* 100 ML IV NR (09:00)
== END 2019-10-09 11:00 | disposition home health service (06) | DRG 871 ==
LOC: ER 17:49 → ICU 22:22 → MED/SURG 10-07 17:45
PROVIDERS: ADMIT Internal Medicine; ATTEND Internal Medicine
DX: B96.4 Proteus (mirabilis) (morganii) as the cause of diseases classified elsewhere; I12.9 Hypertensive chronic kidney disease with stage 1 through stage 4 chronic kidney disease, or unspecified chronic kidney disease; J44.9 Chronic obstructive pulmonary disease, unspecified; L89.153 Pressure ulcer of sacral region, stage 3; K21.9 Gastro-esophageal reflux disease without esophagitis; E78.2 Mixed hyperlipidemia; N18.4 Chronic kidney disease, stage 4 (severe); E11.65 Type 2 diabetes mellitus with hyperglycemia; R06.02 Shortness of breath; E03.8 Other specified hypothyroidism; R26.89 Other abnormalities of gait and mobility; Z11.59 Encounter for screening for other viral diseases; N30.01 Acute cystitis with hematuria; A41.59 Other Gram-negative sepsis; D64.9 Anemia, unspecified; R53.1 Weakness; R50.9 Fever, unspecified

== ENCOUNTER 2019-12-14 17:40 | Inpatient (IN) ==
[2019-12-14] MEDS ORDERED: ZOSYN VIAL 4.5 GRAMS 4.5 G in NS 100 ML IV + SPIKE MINIBAG* 100 ML IV ONE (18:02)
[2019-12-14] MEDS ORDERED: ZOSYN VIAL 4.5 GRAMS IV ONE (18:18)
[2019-12-14] MEDS ORDERED: NS 100 ML IV + SPIKE MINIBAG* 100 ML IV ONE (18:18)
[2019-12-14] MEDS ORDERED: NS 1000 ML 1,000 ML ONE (18:19)
[2019-12-14 18:51] LABS: BASOPHILS % (AUTO) 0.1 % (0.2-1.0); EOSINOPHILS # (AUTO) 0.1 x10^3/uL (0.0-0.2); EOSINOPHILS % (AUTO) 0.4 % (0.9-2.9); HEMATOCRIT 32.6 % (36.0-47.0); HEMOGLOBIN 10.1 g/dL (12.0-16.0); LYMPHOCYTES # (AUTO) 0.4 X10^3/uL (1.3-2.9); LYMPHOCYTES % (AUTO) 1.4 % (21.0-51.0); MEAN CORPUSCULAR HEMOGLOBIN 26.6 pg (27.0-34.0); MEAN CORPUSCULAR VOLUME 85.7 fL (80.0-100.0); MEAN PLATELET VOLUME 7.7 fL (7.4-11.0); MONOCYTES # (AUTO) 0.1 x10^3/uL (0.3-0.8); MONOCYTES % (AUTO) 0.5 % (0.0-13.0); NEUTROPHILS # (AUTO) 25.7 x10^3/uL (2.2-4.8); NEUTROPHILS % (AUTO) 97.6 % (42.0-75.0); PLATELET COUNT 255 X10^3/uL (150.0-450.0); RED BLOOD COUNT 3.81 X10^6/uL (3.5-5.4); RED CELL DISTRIBUTION WIDTH 17.7 % (11.6-16.5); WHITE BLOOD COUNT 26.4 X10^3/uL (3.6-10.0)
--- NOTE | 2019-12-14 18:59 | RAD ---
HISTORYSEPTICSTUDYCHEST, 1 VIEWCOMPARISONApril 2019FINDINGSThe trachea is midline. The cardiac silhouette is stable as is a left-sided Port-A-Cath.. The lungs are clear without focal infiltrate or effusion. The bony thorax is unremarkable.IMPRESSIONNo acute cardiopulmonary disease.Electronically signed by: LIZ VALIENTE (Dec 14, 2019 18:58:13)
[2019-12-14 19:03] LABS: ALANINE AMINOTRANSFERASE 16 Units/L (12-78); ALBUMIN 2.5 g/dL (3.4-5.0); ALKALINE PHOSPHATASE 84 Units/L (46-116); AMYLASE 12 Units/L (25-115); ASPARTATE AMINO TRANSFERASE 30 Units/L (15-37); BLOOD UREA NITROGEN 49 mg/dL (7-18); CALCIUM 8.4 mg/dL (8.5-10.1); CARBON DIOXIDE 23.3 mmol/L (21-32); CHLORIDE 107 mmol/L (98-107); COR CA(FOR HYPOALB) 9.6 mg/dL (8.5-10.1); CREATININE 2.62 mg/dL (0.55-1.02); LIPASE 166 Units/L (73-393); MAGNESIUM 1.3 mg/dL (1.7-2.9); SODIUM 140 mmol/L (136-145); TOTAL PROTEIN 6.4 g/dL (6.4-8.2); eGFR NON BLACK RACES 19 (>60)
[2019-12-14 19:06] LABS: LACTIC ACID 3.2 mmol/L (0.4-2.0)
[2019-12-14 19:07] LABS: BILIRUBIN,URINE NEGATIVE (NEGATIVE); BLOOD/HEMOGLOBIN,URINE 2+ (NEGATIVE); GLUCOSE, URINE NEGATIVE (NEGATIVE); KETONES,URINE NEGATIVE (NEGATIVE); LEUKOCYTE ESTERASE ,URINE NEGATIVE (NEGATIVE); NITRITES,URINE NEGATIVE (NEGATIVE); PROTEIN,URINE 2+ (NEGATIVE); UROBILINOGEN,URINE NORMAL (NORMAL)
[2019-12-14 19:14] LABS: APPEARANCE,URINE CLEAR (CLEAR); BACTERIA,URINE NEGATIVE /HPF (NEGATIVE); COLOR,URINE YELLOW (YELLOW); SQUAMOUS EPITHELIAL CELL,UR FEW /HPF (NEGATIVE)
[2019-12-14] MEDS: NS 1000 ML 1,000 ML IV SCH (19:14)
[2019-12-14 19:25] LABS: BAND NEUTROPHILS % 10 % (0-10)
[2019-12-14 19:26] LABS: BASOPHILS % (MANUAL) 1 % (0-1); PLATELET MORPHOLOGY COMMENT NORMAL (NORMAL)
--- NOTE | 2019-12-14 20:38 | ED.ABDFE ---
HPI Time Seen Time Seen by Provider: 12/14/19 18:00 COVID-19 Coronavirus risk:travel/contact w/high risk person: No Has patient experienced Coronavirus symptoms: No Coronavirus symptoms experienced: Fever PMH PMH Past Medical History: Angina, Anxiety, Arthritis, Asthma, CHF, COPD, Depression, Diabetes, Dyslipidemia, GERD, Headaches, Hypertension, Hypothyroidism and Kidney Stones Past Surgical History: Yes Surgical History: Abdominal Surgery, Bowel Resection, Hysterectomy, Ortho Surgery, Tonsillectomy and Lithotripsy Family History Family Medical History: Diabetes Mellitus and [place] Social History Do you use any recreational Drugs:: No Travel Risk Coronavirus risk:travel/contact w/high risk person: No Has patient experienced Coronavirus symptoms: No Coronavirus symptoms experienced: Fever PE Vital Signs Vitals: Temperature 103 F Pulse Rate [Left] 111 Pulse Rate 114 Respiratory Rate 24 Blood Pressure [Left Arm] 102/51 Blood Pressure 92/50 O2 Sat by Pulse Oximetry 100 COURSE Treatment Treatment: Patient in sepsis, rapid responder to fluids. Cultures drawn, empiric abx Zosyn. Labs reviewed, no specific infection source suspected at this time. Discussed case with Dr. Rosas, agreed to start empiric Diflucan, no CT imaging at this time. Will admit to ICU. Reevaluation 1st: Improved ROR Labs Reviewed Result Diagrams: 12/14/19 18:21 12/14/19 18:21 Laboratory: WBC 26.4 X10^3/uL (3.6-10.0) H 12/14/19 18:21 RBC 3.81 X10^6/uL (3.5-5.4) 12/14/19 18:21 Hgb 10.1 g/dL (12.0-16.0) L 12/14/19 18:21 Hct 32.6 % (36.0-47.0) L 12/14/19 18:21 MCV 85.7 fL (80.0-100.0) 12/14/19 18:21 MCH 26.6 pg (27.0-34.0) L 12/14/19 18:21 MCHC 31.0 g/dL (33.0-35.0) L 12/14/19 18:21 RDW 17.7 % (11.6-16.5) H 12/14/19 18:21 Plt Count 255 X10^3/uL (150.0-450.0) 12/14/19 18:21 Plt Count Comment Adequate (ADEQUATE) 12/14/19 18:21 MPV 7.7 fL (7.4-11.0) 12/14/19 18:21 Neut % (Auto) 97.6 % (42.0-75.0) H 12/14/19 18:21 Lymph % (Auto) 1.4 % (21.0-51.0) L 12/14/19 18:21 [place] % (Auto) 0.5 % (0.0-13.0) 12/14/19 18:21 Eos % (Auto) 0.4 % (0.9-2.9) L 12/14/19 18:21 Baso % (Auto) 0.1 % (0.2-1.0) L 12/14/19 18:21 Neut # (Auto) 25.7 x10^3/uL (2.2-4.8) H 12/14/19 18:21 Lymph # (Auto) 0.4 X10^3/uL (1.3-2.9) L 12/14/19 18:21 [place] # (Auto) 0.1 x10^3/uL (0.3-0.8) L 12/14/19 18:21 Eos # (Auto) 0.1 x10^3/uL (0.0-0.2) 12/14/19 18:21 Baso # (Auto) 0.0 X10^3/uL (0.0-0.1) 12/14/19 18:21 Absolute Nucleated RBC 0.0 /100WBC 12/14/19 18:21 Total Counted 100 12/14/19 18:21 Neutrophils % (Manual) 86 % (39-76) H 12/14/19 18:21 Band Neutrophils % 10 % (0-10) 12/14/19 18:21 Lymphocytes % (Manual) 2 % (13-43) L 12/14/19 18:21 Eosinophils % (Manual) 1 % (0-6) 12/14/19 18:21 Basophils % (Manual) 1 % (0-1) 12/14/19 18:21 Plt Morphology Comment Normal (NORMAL) 12/14/19 18:21 RBC Morphology Normal (NORMAL) 12/14/19 18:21 Sodium 140 mmol/L (136-145) 12/14/19 18:21 Corrected Sodium TNP 12/14/19 18:21 Potassium 4.2 mmol/L (3.5-5.1) 12/14/19 18:21 Chloride 107 mmol/L (98-107) 12/14/19 18:21 Carbon Dioxide 23.3 mmol/L (21-32) 12/14/19 18:21 BUN 49 mg/dL (7-18) H 12/14/19 18:21 Creatinine 2.62 mg/dL (0.55-1.02) H 12/14/19 18:21 Est GFR (MDRD) Af Amer 24 (>60) L 12/14/19 18:21 Est GFR (MDRD) Non-Af 19 (>60) L 12/14/19 18:21 Glucose 84 mg/dL (65-99) 12/14/19 18:21 Lactic Acid 3.2 mmol/L (0.4-2.0) H 12/14/19 18:21 Calcium 8.4 mg/dL (8.5-10.1) L 12/14/19 18:21 Corrected Calcium 9.6 mg/dL (8.5-10.1) 12/14/19 18:21 Magnesium 1.3 mg/dL (1.7-2.9) L 12/14/19 18:21 Total Bilirubin 0.30 mg/dL (0.2-1.0) 12/14/19 18:21 AST 30 Units/L (15-37) 12/14/19 18:21 ALT 16 Units/L (12-78) 12/14/19 18:21 Alkaline Phosphatase 84 Units/L (46-116) 12/14/19 18:21 Total Protein 6.4 g/dL (6.4-8.2) 12/14/19 18:21 Albumin 2.5 g/dL (3.4-5.0) L 12/14/19 18:21 Globulin 3.9 g/dL (2.5-4.5) 12/14/19 18:21 Albumin/Globulin Ratio 0.6 Ratio (1.1-2.1) L 12/14/19 18:21 Amylase 12 Units/L (25-115) L 12/14/19 18:21 Lipase 166 Units/L (73-393) 12/14/19 18:21 Specimen Type Catherized urine 12/14/19 18:55 Urine Color Yellow (YELLOW) 12/14/19 18:55 Urine Appearance Clear (CLEAR) 12/14/19 18:55 Urine pH 5.0 (5.0 - 8.0) 12/14/19 18:55 Ur Specific [place] 1.010 (1.000-1.030) 12/14/19 18:55 Urine Protein 2+ (NEGATIVE) 12/14/19 18:55 Urine Glucose (UA) Negative (NEGATIVE) 12/14/19 18:55 Urine Ketones Negative (NEGATIVE) 12/14/19 18:55 Urine Occult Blood 2+ (NEGATIVE) 12/14/19 18:55 Urine Nitrite Negative (NEGATIVE) 12/14/19 18:55 Urine Bilirubin Negative (NEGATIVE) 12/14/19 18:55 Urine Urobilinogen Normal (NORMAL) 12/14/19 18:55 Ur Leukocyte Esterase Negative (NEGATIVE) 12/14/19 18:55 Urine RBC 3-5 /HPF (0-3) A 12/14/19 18:55 Urine WBC 0-2 /HPF (0-5) 12/14/19 18:55 Ur Squamous Epith Cells Few /HPF (NEGATIVE) 12/14/19 18:55 Urine Bacteria Negative /HPF (NEGATIVE) 12/14/19 18:55 Ur Culture Indicated? No/not indicated 12/14/19 18:55 Opioid Opioid Risk Tool Age (Jose Luis box if 16-45): No History of Preadolescent Sexual Abuse: No Total: 0 Total Score Risk Category: Low Risk Copyright: Tony QUINONES predicting aberrant behaviors
--- NOTE | 2019-12-14 21:19 | ED.ABDFE ---
HPI Time Seen Time Seen by Provider: 12/14/19 18:00 PCP Primary Care Physician: JASON HPI Comment HPI Comment: Patient arrived 70/40s BP, MT 120. Prev hx of sepsis. Diabetic with decub ulcer. Bedridden. Complaint Chief Complaint:: FAMILY CALLED FOR EMS, SON STATED THAT PT WAS VERY GROGGY, PT HAS BEEN TREATED FOR UTI. PT GROGGY, BUT ABLE TO ANSWER QUESTION APPROPIATLY BUT FALLS RIGHT BACK TO SLEEP. PT HOT TO TOUCH. N/V ABDOMEN PAIN, URINARY INCONTIENT. PT TEMP 103 ORAL COVID-19 Coronavirus risk:travel/contact w/high risk person: No Has patient experienced Coronavirus symptoms: No Coronavirus symptoms experienced: Fever Source History Provided: Patient and EMS Mode of arrival Mode of Arrival: EMS Timing Onset of Chief Complaint: 12/13/19 PMH PMH Past Medical History: Yes Past Medical History: Angina, Anxiety, Arthritis, Asthma, CHF, COPD, Depression, Diabetes, Dyslipidemia, GERD, Headaches, Hypertension, Hypothyroidism and Kidney Stones Past Surgical History: Yes Surgical History: Abdominal Surgery, Bowel Resection, Hysterectomy, Ortho Surgery, Tonsillectomy and Lithotripsy Family History History of Family Medical Conditions: Yes Family Medical History: Diabetes Mellitus and [place] Social History Does patient currently use any type of tobacco product: No Have you used tobacco products in the last 12 months: No Type of Tobacco Use: None Does any household member use tobacco: No Alcohol Use: None Do you use any recreational Drugs:: No Lives With: Family Lives Where: Home Travel Risk Coronavirus risk:travel/contact w/high risk person: No Has patient experienced Coronavirus symptoms: No Coronavirus symptoms experienced: Fever Infectious screening In the last 2 months have you had wt loss of >10#?: NO Have you had fever, night sweats or hemotysis?: No Have you traveled outside the country in the last 6 months?: No Isolation: Standard ROS Review of Systems Unable to Obtain Due To: Altered mental status and Medical urgency PE Vital Signs Vitals: Temperature 103 F Pulse Rate [Left] 111 Pulse Rate 114 Respiratory Rate 24 Blood Pressure [Left Arm] 102/51 Blood Pressure 92/50 O2 Sat by Pulse Oximetry 100 General General Appearance: Lethargic and Obese Head Head Exam: Normal Inspection, Atraumatic and Normocephalic Eyes Eye exam: Normal Appearance and PERRL ENT ENT Exam: Normal Exam Neck Neck Exam: Normal Inspection Chest Chest Inspection: Normal Inspection and Symmetric Chest Wall Rise Respiratory Respiratory Exam: Normal Lung Sounds Bilat; negative Respiratory Distress Cardiovascular Cardiovascular Exam: Normal Rhythm, Tachycardia and Normal Heart Sounds Abdominal Exam Abdominal Exam: Normal Inspection (Colostomy in RLQ. Empty bag, patient states she has had output.), Normal Bowel Sounds and Soft; negative Distention, Tenderness, Guarding, Rebound and Rigidity Extremeties Extremities Exam: Normal Inspection Skin Skin Exam: Warm COURSE Treatment Treatment: Patient with acute sepsis and benign abdominal findings. Rapid responder to fluids, Zosyn given impirically.No acute focus. Discussed the case with Dr. Palomares, he agreed to delay CT eval, and monitor patient response to Abx, and improve renal function. Will continue gentle hydration cognizant of hx of CHF. We also discussed starting empiric Diflucan and continuing Zosyn, renally dosed. Reevaluation 1st: Improved ROR Labs Reviewed Laboratory Results Reviewed?: Yes Result Diagrams: 12/14/19 18:21 12/14/19 18:21 Laboratory: WBC 26.4 X10^3/uL (3.6-10.0) H 12/14/19 18:21 RBC 3.81 X10^6/uL (3.5-5.4) 12/14/19 18:21 Hgb 10.1 g/dL (12.0-16.0) L 12/14/19 18:21 Hct 32.6 % (36.0-47.0) L 12/14/19 18:21 MCV 85.7 fL (80.0-100.0) 12/14/19 18:21 MCH 26.6 pg (27.0-34.0) L 12/14/19 18:21 MCHC 31.0 g/dL (33.0-35.0) L 12/14/19 18:21 RDW 17.7 % (11.6-16.5) H 12/14/19 18:21 Plt Count 255 X10^3/uL (150.0-450.0) 12/14/19 18:21 Plt Count Comment Adequate (ADEQUATE) 12/14/19 18:21 MPV 7.7 fL (7.4-11.0) 12/14/19 18:21 Neut % (Auto) 97.6 % (42.0-75.0) H 12/14/19 18:21 Lymph % (Auto) 1.4 % (21.0-51.0) L 12/14/19 18:21 [place] % (Auto) 0.5 % (0.0-13.0) 12/14/19 18:21 Eos % (Auto) 0.4 % (0.9-2.9) L 12/14/19 18:21 Baso % (Auto) 0.1 % (0.2-1.0) L 12/14/19 18:21 Neut # (Auto) 25.7 x10^3/uL (2.2-4.8) H 12/14/19 18:21 Lymph # (Auto) 0.4 X10^3/uL (1.3-2.9) L 12/14/19 18:21 [place] # (Auto) 0.1 x10^3/uL (0.3-0.8) L 12/14/19 18:21 Eos # (Auto) 0.1 x10^3/uL (0.0-0.2) 12/14/19 18:21 Baso # (Auto) 0.0 X10^3/uL (0.0-0.1) 12/14/19 18:21 Absolute Nucleated RBC 0.0 /100WBC 12/14/19 18:21 Total Counted 100 12/14/19 18:21 Neutrophils % (Manual) 86 % (39-76) H 12/14/19 18:21 Band Neutrophils % 10 % (0-10) 12/14/19 18:21 Lymphocytes % (Manual) 2 % (13-43) L 12/14/19 18:21 Eosinophils % (Manual) 1 % (0-6) 12/14/19 18:21 Basophils % (Manual) 1 % (0-1) 12/14/19 18:21 Plt Morphology Comment Normal (NORMAL) 12/14/19 18:21 RBC Morphology Normal (NORMAL) 12/14/19 18:21 Sodium 140 mmol/L (136-145) 12/14/19 18:21 Corrected Sodium TNP 12/14/19 18:21 Potassium 4.2 mmol/L (3.5-5.1) 12/14/19 18:21 Chloride 107 mmol/L (98-107) 12/14/19 18:21 Carbon Dioxide 23.3 mmol/L (21-32) 12/14/19 18:21 BUN 49 mg/dL (7-18) H 12/14/19 18:21 Creatinine 2.62 mg/dL (0.55-1.02) H 12/14/19 18:21 Est GFR (MDRD) Af Amer 24 (>60) L 12/14/19 18:21 Est GFR (MDRD) Non-Af 19 (>60) L 12/14/19 18:21 Glucose 84 mg/dL (65-99) 12/14/19 18:21 Lactic Acid 3.2 mmol/L (0.4-2.0) H 12/14/19 18:21 Calcium 8.4 mg/dL (8.5-10.1) L 12/14/19 18:21 Corrected Calcium 9.6 mg/dL (8.5-10.1) 12/14/19 18:21 Magnesium 1.3 mg/dL (1.7-2.9) L 12/14/19 18:21 Total Bilirubin 0.30 mg/dL (0.2-1.0) 12/14/19 18:21 AST 30 Units/L (15-37) 12/14/19 18:21 ALT 16 Units/L (12-78) 12/14/19 18:21 Alkaline Phosphatase 84 Units/L (46-116) 12/14/19 18:21 Total Protein 6.4 g/dL (6.4-8.2) 12/14/19 18:21 Albumin 2.5 g/dL (3.4-5.0) L 12/14/19 18:21 Globulin 3.9 g/dL (2.5-4.5) 12/14/19 18:21 Albumin/Globulin Ratio 0.6 Ratio (1.1-2.1) L 12/14/19 18:21 Amylase 12 Units/L (25-115) L 12/14/19 18:21 Lipase 166 Units/L (73-393) 12/14/19 18:21 Specimen Type Catherized urine 12/14/19 18:55 Urine Color Yellow (YELLOW) 12/14/19 18:55 Urine Appearance Clear (CLEAR) 12/14/19 18:55 Urine pH 5.0 (5.0 - 8.0) 12/14/19 18:55 Ur Specific [place] 1.010 (1.000-1.030) 12/14/19 18:55 Urine Protein 2+ (NEGATIVE) 12/14/19 18:55 Urine Glucose (UA) Negative (NEGATIVE) 12/14/19 18:55 Urine Ketones Negative (NEGATIVE) 12/14/19 18:55 Urine Occult Blood 2+ (NEGATIVE) 12/14/19 18:55 Urine Nitrite Negative (NEGATIVE) 12/14/19 18:55 Urine Bilirubin Negative (NEGATIVE) 12/14/19 18:55 Urine Urobilinogen Normal (NORMAL) 12/14/19 18:55 Ur Leukocyte Esterase Negative (NEGATIVE) 12/14/19 18:55 Urine RBC 3-5 /HPF (0-3) A 12/14/19 18:55 Urine WBC 0-2 /HPF (0-5) 12/14/19 18:55 Ur Squamous Epith Cells Few /HPF (NEGATIVE) 12/14/19 18:55 Urine Bacteria Negative /HPF (NEGATIVE) 12/14/19 18:55 Ur Culture Indicated? No/not indicated 12/14/19 18:55 XRAY X-ray Results: No acute cardiopulmonary findings. EKG Rate: 116 [place]: Normal Block: None Hypertrophy: None ST: Normal Opioid Opioid Risk Tool Age (Jose Luis box if 16-45): No History of Preadolescent Sexual Abuse: No Total: 0 Total Score Risk Category: Low Risk Copyright: Tony QUINONES predicting aberrant behaviors Diagnosis Discharge Problem: Sepsis associated hypotension Sepsis Qualifiers: Sepsis type: sepsis due to unspecified organism Sepsis acute organ dysfunction status: with acute organ dysfunction Severe sepsis acute organ dysfunction type: acute renal failure Acute renal failure type: unspecified Severe sepsis shock status: without septic shock Qualified Code(s): A41.9 - Sepsis, unspecified organism
[2019-12-14] MEDS ORDERED: D50W ABBOJECT SYR IV ONE (23:41)
[2019-12-14] MEDS ORDERED: D50W ABBOJECT SYR ONE (23:48)
[2019-12-14] MEDS ORDERED: DIFLUCAN 200 MG IV PREMIX* 200 MG/100 ML BAG IV ONE (23:57)
[2019-12-15] MEDS: CYMBALTA PO SCH ×2 (00:11→20:34)
[2019-12-15] MEDS: DIFLUCAN 100 MG IV (MIX by PHARMACY)* 100 MG/50 ML BAG IV SCH ×2 (00:12→21:22)
[2019-12-15] MEDS: COREG TAB 3.125 MG PO SCH ×3 (00:13→20:33)
[2019-12-15] MEDS: ZOCOR TAB 40 MG PO SCH ×2 (00:13→21:30)
[2019-12-15] MEDS: REQUIP PO SCH ×3 (00:13→20:35)
[2019-12-15 01:05] VITALS: BMI 41.5
[2019-12-15 01:35] LABS: LACTATE DEHYDROGENASE 240 Units/L (81-234)
[2019-12-15] MEDS ORDERED: ZOSYN VIAL 2.25 GRAMS IV ONE (04:03)
[2019-12-15] MEDS ORDERED: NS 100 ML IV + SPIKE MINIBAG* 100 ML IV ONE (04:03)
[2019-12-15] MEDS: NS 1000 ML 1,000 ML IV SCH (04:06)
[2019-12-15] MEDS: ZOSYN VIAL 2.25 GRAMS 2.25 G in NS 100 ML IV + SPIKE MINIBAG* 100 ML IV SCH ×3 (05:35→22:34)
[2019-12-15 05:40] LABS: BASOPHILS # (AUTO) 0.1 X10^3/uL (0.0-0.1); BASOPHILS % (AUTO) 0.1 % (0.2-1.0); EOSINOPHILS % (AUTO) 0.1 % (0.9-2.9); HEMATOCRIT 29.5 % (36.0-47.0); HEMOGLOBIN 9.4 g/dL (12.0-16.0); LYMPHOCYTES # (AUTO) 1.2 X10^3/uL (1.3-2.9); LYMPHOCYTES % (AUTO) 2.7 % (21.0-51.0); MEAN CORPUSCULAR HEMOGLOBIN 27.2 pg (27.0-34.0); MEAN CORPUSCULAR HGB CONC 31.8 g/dL (33.0-35.0); MEAN CORPUSCULAR VOLUME 85.4 fL (80.0-100.0); MEAN PLATELET VOLUME 8.2 fL (7.4-11.0); MONOCYTES # (AUTO) 1.6 x10^3/uL (0.3-0.8); MONOCYTES % (AUTO) 3.4 % (0.0-13.0); NEUTROPHILS # (AUTO) 43.3 x10^3/uL (2.2-4.8); NEUTROPHILS % (AUTO) 93.7 % (42.0-75.0); PLATELET COUNT 222 X10^3/uL (150.0-450.0); RED BLOOD COUNT 3.45 X10^6/uL (3.5-5.4)
[2019-12-15] MEDS ORDERED: D50W ABBOJECT SYR IV ONE (05:48)
[2019-12-15] MEDS ORDERED: D50W ABBOJECT SYR ONE (05:50)
[2019-12-15 05:52] LABS: ALANINE AMINOTRANSFERASE 13 Units/L (12-78); ALBUMIN 2.3 g/dL (3.4-5.0); ALKALINE PHOSPHATASE 54 Units/L (46-116); ASPARTATE AMINO TRANSFERASE 28 Units/L (15-37); BLOOD UREA NITROGEN 54 mg/dL (7-18); CALCIUM 8.1 mg/dL (8.5-10.1); CARBON DIOXIDE 21.9 mmol/L (21-32); CHLORIDE 107 mmol/L (98-107); COR CA(FOR HYPOALB) 9.5 mg/dL (8.5-10.1); CREATININE 3.15 mg/dL (0.55-1.02); MAGNESIUM 1.3 mg/dL (1.7-2.9); SODIUM 139 mmol/L (136-145); TOTAL PROTEIN 6.4 g/dL (6.4-8.2); eGFR NON BLACK RACES 16 (>60)
[2019-12-15 06:52] LABS: WHITE BLOOD COUNT 46.3 X10^3/uL (3.6-10.0)
[2019-12-15 06:55] LABS: BAND NEUTROPHILS % 13 % (0-10)
[2019-12-15 06:59] LABS: ANISOCYTOSIS SLIGHT; PLATELET MORPHOLOGY COMMENT NORMAL (NORMAL)
[2019-12-15] MEDS: PEPCID TAB 20 MG PO SCH (08:36)
[2019-12-15] MEDS: ABILIFY PO SCH (08:36)
[2019-12-15 08:37] LABS: ABG BASE EXCESS -6.9 mmol/L (-2.0-2.0); ABG HCO3 19.2 mmol/L (22-26)
[2019-12-15] MEDS: SYNTHROID 125 mcg TAB PO SCH (08:37)
[2019-12-15] MEDS: LEVEMIR SC SCH (08:39)
[2019-12-15] MEDS ORDERED: COREG TAB 3.125 MG PO SCH (09:00)
[2019-12-15] MEDS ORDERED: SYNTHROID 125 mcg TAB PO SCH (09:00)
[2019-12-15] MEDS ORDERED: ARIPIPRAZOLE 30 MG PO SCH (09:00)
--- NOTE | 2019-12-15 09:55 | RAD ---
HISTORYSOBSTUDYPortable AP [id number] cardiomegaly with stable position of left subclavian injec tion port. The lungs remain grossly clear; the left lower lobe is significantly obscured by the large heart.IMPRESSIONNo definite change or new abnormality demonstrated.Electronically signed by: CHRISTEN JARA (Dec 15, 2019 09:54:04)
--- NOTE | 2019-12-15 10:23 | DR.H&P ---
H&P - History & Physical for Day of: H&P Date: 12/14/19 - Chief Complaint Chief Complaint: DECREASED RESPONSIVENESS, DROWSINESS, FEVER - History of Present Illness History of Present Illness: IS A 64 YEAR OLD PATIENT OF PAT RANJIT. S HE PRESENTED TO THE ER VIA EMS WITH REPORTS OF DECREASED RESPONSIVENESS, DROWSINESS, AND FEVER. PATIENTS SON REPORTED THAT PATIENT HAS RECENTLY BEEN STARTED ON TREATMENT FOR A URINARY TRACT INFECTION. PATIENT IS BEDRIDDEN. SHE DENIES NAUSEA, VOMITING, ABDOMINAL PAIN, OR URINARY INCONTINENCE. HER PMH INCLUDES: Angina, Anxiety, Arthritis, Asthma, CHF, COPD, Depression, Diabetes, Dyslipidemia, GERD, Headaches, Hypertension, Hypothyroidism, Kidney Stones, Abdominal Surgery, Bowel Resection with colostomy, Hysterectomy, Ortho Surgery, Tonsillectomy and Lithotripsy. ON ARRIVAL TO THE ER, PATIENT WAS LETHARGIC AND SLUGGISH TO RESPOND. HER VITALS WERE 103.0-116-24-94%NC-82/50. LABS WERE OBTAINED. ABNORMAL LAB VALUES INCLUDE THE FOLLOWING: WBC 26.4, HGB 10.1, HCT 32.6, BUN 49, CREATININE 2.62, LACTIC ACID 3.2, CALCIUM 8.4, MAGNESIUM 1.3, LACTATE DEHYDROGENASE 240, ALBUMIN 2.5, AMYLASE 12. ABG REVEALED: PH 7.290, PC02 40.0, P02 71.0, HC03 19.2, 02 SATURATION 92.0, BASE EXCESS -6.9. URINALYSIS R EVEALED: WBC 0-2, RBC 3-5, NITRITE NEGATIVE, OCCULT BLOOD 2+, BACTERIA NEGATIVE. COVID-19 PENDING. BLOOD CULTURES PENDING. A CHEST XRAY WAS OBTAINED AND REVEALED: NO ACUTE CARDIOPULMONARY DISEASE. AN EKG WAS OBTAINED AND REVEALED: SINUS TACHYCARDIA WITH HR 116. WHILE IN THE ER, HER BLOOD GLUCOSE LEVELS FELL TO THE 40s. SHE WAS GIVEN AN AMP OF D50 X 2 DOSES. A ALVAREZ CATHETER WAS INSERTED. EXAMINATION REVEALED REDNESS UNDER ABDOMEN AND BREAST FOLD. THERE IS ALSO A HEALING PRESSURE ULCER NOTED TO THE COCCYX. SHE WAS STARTED ON ZOSYN 4.5G IV X 1 DOSE AND NORMAL SALINE IN THE ER. SHE WAS ADMITTED TO THE HOSPITAL FOR FURTHER EVALUATION AND TREATMENT OF SEPSIS, DEHYDRATION, R/O COVID-19. SHE WAS STARTED ON D5W AT 80 ML/HR, ZOSYN 2.25G IV TID, DIFLUCAN 100MG IV DAILY, HUMULIN R SLIDING SCALE, AND HER HOME MEDICATIONS WERE RESUMED. TODAY, WE WILL REPEAT A CHEST XRAY. OTHERWISE, WE WILL FOLLOW UP WITH AM LABS AND CONTINUE TO MONITOR. TIME SPENT WITH PATIENT ON EXAMINATION, REVIEWING FINDINGS, AND PLAN OF CARE WAS BETWEEN 30-74 MINUTES. - Past Medical History Past Medical History: Angina, Hypertension, Dyslipidemia, Diabetes, Depression, Anxiety, Hypothyroidism, COPD, Asthma, GERD, Arthritis, Kidney Stones, Headaches, CHF Additional Medical History: MORBID OBESITY; VITAMIN B12 DEFICIENCY; LUMBOSACAL RADICULOPATHY - Past Surgical History Surgical History: Abdominal Surgery, Bowel Resection, Hysterectomy, Ortho Surgery, Tonsillectomy, Lithotripsy - Family History Family Medical History: Diabetes Mellitus, [place] - Social History Does patient currently use any type of tobacco product: No Have you used tobacco products in the last 12 months: No Type of Tobacco Use: None Does any household member use tobacco: No Alcohol Use: None Drug Use: None - Medications Home Medications: oxycodone Allergy (Verified 10/02/19 18:05) - Review of Systems Constitutional: See HPI, Fever, Weakness Eyes: No Symptoms Reported ENT: No Symptoms Reported Respiratory: Shortness of Breath Cardiovascular: No Symptoms Reported Gastrointestinal: No Symptoms Reported Genitourinary: No Symptoms Reported Musculoskeletal: No Symptoms Reported Skin: No Symptoms Reported Neurological: See HPI, Weakness, Change in Speech, Other (DROWSINESS ) - Physical Exam Vital Signs: Temperature 98.7 F Pulse Rate [Left] 108 Pulse Rate 94 Respiratory Rate 19 Blood Pressure [Left Arm] 87/52 Blood Pressure 97/55 O2 Sat by Pulse Oximetry 99 Oriented: Normal Eyes: Normal Ear: Normal Nose: Normal Throat: Normal Respiratory: Diminished Throughout Cardiovascular: Tachycardia. negative: S3, S4, Murmur : Normal Auscultation: Bowel Sounds: Normal Palpation: Normal Tenderness: Normal Skin: Normal Musculoskeletal: Normal Psychiatric: Normal Mood Description: Calm Affect: Normal Speech Pattern: Clear - Assessment/Plan (1) Sepsis Qualifiers: Sepsis type: sepsis due to unspecified organism Sepsis acute organ dysfunction status: with acute organ dysfunction Severe sepsis acute organ dysfunction type: acute renal failure Acute renal failure type: unspecified Severe sepsis shock status: without septic shock Qualified Code(s): A41.9 - Sepsis, unspecified organism; R65.20 - Severe sepsis without septic shock; N17.9 - Acute kidney failure, unspecified Status: Acute Plan: ADMIT, D5W AT 80 ML/HR, ZOSYN 2.25G IV TID, DIFLUCAN 100MG IV DAILY, HUMULIN R SLIDING SCALE, AND HER HOME MEDICATIONS WERE RESUMED (2) Dehydration Status: Acute Plan: D5W AT 80 ML/HR, CONTINUE TO MONITOR (3) Hypotension Qualifiers: Hypotension type: unspecified hypotension type Qualified Code(s): I95.9 - Hypotension, unspecified Status: Acute (4) Fever Qualifiers: Fever type: unspecified Status: Acute (5) COVID-19 Status: Suspected - Allergies Allergies/Adverse Reactions: Allergies Allergy/AdvReac Type Severity Reaction Status Date / Time oxycodone Allergy Verified 10/02/19 18:05
[2019-12-15] MEDS: D5W 1000 ML IV 1,000 ML IV SCH ×2 (11:04→22:34)
[2019-12-15] MEDS: ZOFRAN INJ 4 MG VIAL IVP PRN ×2 (11:25→16:53)
[2019-12-15] MEDS ORDERED: ZOCOR TAB 40 MG PO SCH (21:00)
[2019-12-15] MEDS: SNACK - Diabetic Appropriate PO SCH (22:31)
[2019-12-16 05:18] LABS: ABG BASE EXCESS -4.8 mmol/L (-2.0-2.0); ABG HCO3 22.1 mmol/L (22-26)
[2019-12-16 05:39] LABS: BASOPHILS % (AUTO) 0.1 % (0.2-1.0); EOSINOPHILS # (AUTO) 0.4 x10^3/uL (0.0-0.2); EOSINOPHILS % (AUTO) 1.5 % (0.9-2.9); HEMATOCRIT 25.4 % (36.0-47.0); HEMOGLOBIN 8.1 g/dL (12.0-16.0); LYMPHOCYTES # (AUTO) 1.7 X10^3/uL (1.3-2.9); LYMPHOCYTES % (AUTO) 5.7 % (21.0-51.0); MEAN CORPUSCULAR HEMOGLOBIN 27.2 pg (27.0-34.0); MEAN CORPUSCULAR HGB CONC 31.8 g/dL (33.0-35.0); MEAN CORPUSCULAR VOLUME 85.6 fL (80.0-100.0); MEAN PLATELET VOLUME 8.3 fL (7.4-11.0); MONOCYTES # (AUTO) 1.2 x10^3/uL (0.3-0.8); NEUTROPHILS # (AUTO) 25.6 x10^3/uL (2.2-4.8); NEUTROPHILS % (AUTO) 88.7 % (42.0-75.0); PLATELET COUNT 198 X10^3/uL (150.0-450.0); RED BLOOD COUNT 2.96 X10^6/uL (3.5-5.4)
[2019-12-16 05:47] LABS: ALBUMIN 2.1 g/dL (3.4-5.0); CALCIUM 7.8 mg/dL (8.5-10.1); CARBON DIOXIDE 21.6 mmol/L (21-32); COR CA(FOR HYPOALB) 9.3 mg/dL (8.5-10.1); CREATININE 2.76 mg/dL (0.55-1.02)
[2019-12-16 06:33] LABS: WHITE BLOOD COUNT 28.9 X10^3/uL (3.6-10.0)
[2019-12-16 06:34] LABS: BAND NEUTROPHILS % 3 % (0-10)
[2019-12-16 06:35] LABS: ANISOCYTOSIS SLIGHT; HYPOCHROMASIA SLIGHT; PLATELET MORPHOLOGY COMMENT NORMAL (NORMAL)
--- NOTE | 2019-12-16 06:37 | RAD ---
CHEST, 1 VIEWHistory: SHORTNESS OF BREATHComparison: 12/15/2019Findings: There is stable enlargement of the cardiac silhouette without congestive failure. No acute alveolar infiltrate or significant effusion is identified. Left subclavian port catheter remains well positioned without pneumothorax.Impression: No acute cardiopulmonary abnormality or change since prior.Electronically signed by: MYESHA GUSMAN (Dec 16, 2019 06:36:08)
[2019-12-16] MEDS: ZOSYN VIAL 2.25 GRAMS 2.25 G in NS 100 ML IV + SPIKE MINIBAG* 100 ML IV SCH ×3 (06:44→21:02)
[2019-12-16] MEDS ORDERED: PATIENT'S HOME MEDICATION (Dexlansoprazole [Dexilant] 60 MG) PO SCH (09:00)
[2019-12-16] MEDS ORDERED: XANAX PO PRN (09:38)
[2019-12-16] MEDS: ABILIFY PO SCH (09:44)
[2019-12-16] MEDS: PEPCID TAB 20 MG PO SCH (09:44)
[2019-12-16] MEDS: REQUIP PO SCH ×2 (09:45→21:05)
[2019-12-16] MEDS: SYNTHROID 125 mcg TAB PO SCH (09:45)
[2019-12-16] MEDS: COREG TAB 3.125 MG PO SCH ×2 (09:45→21:01)
[2019-12-16] MEDS ORDERED: PEPCID TAB 20 MG PO SCH (10:00)
[2019-12-16] MEDS ORDERED: REQUIP PO SCH (10:00)
[2019-12-16] MEDS ORDERED: SYNTHROID 125 mcg TAB PO SCH (10:00)
[2019-12-16] MEDS: DILAUDID INJ IVP PRN ×2 (10:31→16:06)
[2019-12-16] MEDS: LEVEMIR SC SCH (12:16)
[2019-12-16] MEDS: ZANAFLEX PO SCH ×2 (12:17→21:03)
[2019-12-16] MEDS: D5W 1000 ML IV 1,000 ML IV SCH (12:17)
[2019-12-16] MEDS: MICRO K EXTEN CAP 10 MEQ PO SCH ×2 (12:17→21:03)
[2019-12-16] MEDS: NexIUM PO SCH (12:21)
[2019-12-16] MEDS: NORCO 7.5/325 MG TAB PO SCH ×2 (15:05→21:02)
[2019-12-16] MEDS: HumuLIN R SC PRN (16:07)
[2019-12-16] MEDS ORDERED: ZOCOR TAB 40 MG PO SCH (21:00)
[2019-12-16] MEDS: CYMBALTA PO SCH (21:02)
[2019-12-16] MEDS: ZOCOR TAB 40 MG PO SCH (21:03)
[2019-12-16] MEDS: TRICOR TAB 160 MG PO SCH (21:04)
[2019-12-16] MEDS: DIFLUCAN 100 MG IV (MIX by PHARMACY)* 100 MG/50 ML BAG IV SCH (21:10)
[2019-12-16] MEDS: SNACK - Diabetic Appropriate PO SCH (21:10)
[2019-12-17] MEDS: D5W 1000 ML IV 1,000 ML IV SCH ×2 (00:28→14:27)
[2019-12-17] MEDS: NORCO 7.5/325 MG TAB PO SCH ×3 (06:00→21:00)
[2019-12-17] MEDS: ZOSYN VIAL 2.25 GRAMS 2.25 G in NS 100 ML IV + SPIKE MINIBAG* 100 ML IV SCH ×3 (06:01→21:03)
[2019-12-17 06:13] LABS: BASOPHILS # (AUTO) 0.1 X10^3/uL (0.0-0.1); BASOPHILS % (AUTO) 0.3 % (0.2-1.0); EOSINOPHILS # (AUTO) 0.6 x10^3/uL (0.0-0.2); EOSINOPHILS % (AUTO) 3.5 % (0.9-2.9); HEMATOCRIT 25.6 % (36.0-47.0); HEMOGLOBIN 8.2 g/dL (12.0-16.0); LYMPHOCYTES # (AUTO) 1.4 X10^3/uL (1.3-2.9); LYMPHOCYTES % (AUTO) 7.6 % (21.0-51.0); MEAN CORPUSCULAR HEMOGLOBIN 26.9 pg (27.0-34.0); MEAN CORPUSCULAR HGB CONC 32.1 g/dL (33.0-35.0); MEAN CORPUSCULAR VOLUME 83.9 fL (80.0-100.0); MEAN PLATELET VOLUME 7.9 fL (7.4-11.0); MONOCYTES # (AUTO) 0.6 x10^3/uL (0.3-0.8); MONOCYTES % (AUTO) 3.4 % (0.0-13.0); NEUTROPHILS # (AUTO) 15.7 x10^3/uL (2.2-4.8); NEUTROPHILS % (AUTO) 85.2 % (42.0-75.0); PLATELET COUNT 196 X10^3/uL (150.0-450.0); RED BLOOD COUNT 3.05 X10^6/uL (3.5-5.4); RED CELL DISTRIBUTION WIDTH 17.7 % (11.6-16.5); WHITE BLOOD COUNT 18.4 X10^3/uL (3.6-10.0)
[2019-12-17 06:37] LABS: CALCIUM 8.2 mg/dL (8.5-10.1); COR CA(FOR HYPOALB) 9.8 mg/dL (8.5-10.1); CREATININE 2.06 mg/dL (0.55-1.02); TOTAL PROTEIN 6.1 g/dL (6.4-8.2)
--- NOTE | 2019-12-17 07:46 | RAD ---
HISTORYShortness of breathSTUDYCHEST x-ray, 1 VIEWCOMPARISONX-ray 12/16/2019FINDINGSPort catheter terminates in the region of the right atrium of the heart. Persistent cardiomegaly is seen without pulmonary venous congestion. Possible small left pleural effusion. No pneumothorax is seen. No focal infiltrate is seen.IMPRESSIONPossible new small left pleural effusion.Electronically signed by: Nick Johnson (Dec 17, 2019 07:44:58)
[2019-12-17] MEDS: ZOFRAN INJ 4 MG VIAL IVP PRN (08:19)
[2019-12-17] MEDS: ZANAFLEX PO SCH ×2 (09:00→20:59)
[2019-12-17] MEDS: SYNTHROID 125 mcg TAB PO SCH (09:00)
[2019-12-17] MEDS: NexIUM PO SCH (09:00)
[2019-12-17] MEDS: PEPCID TAB 20 MG PO SCH (09:00)
[2019-12-17] MEDS: COREG TAB 3.125 MG PO SCH ×2 (09:01→20:59)
[2019-12-17] MEDS: MICRO K EXTEN CAP 10 MEQ PO SCH ×2 (09:01→21:01)
[2019-12-17] MEDS: LEVEMIR SC SCH (09:01)
[2019-12-17] MEDS: ABILIFY PO SCH (09:03)
[2019-12-17] MEDS: REQUIP PO SCH ×2 (10:06→21:03)
[2019-12-17] MEDS: HumuLIN R SC PRN (13:36)
[2019-12-17] MEDS: DILAUDID INJ IVP PRN (18:31)
[2019-12-17 19:35] LABS: ABG ALLEN TEST POS
[2019-12-17] MEDS: ZOCOR TAB 40 MG PO SCH (20:59)
[2019-12-17] MEDS: TRICOR TAB 160 MG PO SCH (21:00)
[2019-12-17] MEDS: SNACK - Diabetic Appropriate PO SCH (21:00)
[2019-12-17] MEDS: CYMBALTA PO SCH (21:01)
[2019-12-17] MEDS: DIFLUCAN 100 MG IV (MIX by PHARMACY)* 100 MG/50 ML BAG IV SCH (21:02)
--- NOTE | 2019-12-17 22:13 | PCM.PROG ---
Progress Note - Progress Note for Day of Date of Exam: 12/16/19 - Subjective Subjective: IS BEING TREATED FOR SEPSIS, DEHYDRATION, HYPOTENSION, FEVER, RULE OUT COVID-19. TODAY, SHE IS ALERT AND ORIENTED, LYING IN BED ON MORNING ROUNDS. SHE CONTINUES WITH WEAKNESS THIS MORNING. SHE ALSO REPORTS SHORTNESS OF BREATH. ON EXAMINATION, HEART IS REGULAR IN RATE AND RHYTHM. MONI ATERAL LUNGS ARE NOTED WITH DIMINISHED LUNG SOUNDS THROUGHOUT. ABDOMEN IS ROUND, SOFT, AND NON-TENDER. NORMAL BOWEL SOUNDS ARE NOTED IN ALL QUADRNANTS. HER VITALS THIS MORNING ARE: 97.2-79-29-100%-120/56. LABS WERE OBTAINED. ABNORMAL LAB VALUES INCLUDE THE FOLLOWING: WBC 28.9, RBC 2.96, HGB 8.1, HCT 25.4, SODIUM 132, BUN 50, CREATININE 2.06, GLUCOSE 183, CALCIUM 8.2, MAGNESIUM 1.6, CRP 157.30, TOTAL PROTEIN 6.1, ALBUMIN 2.0. BLOOD CULTURES REVEAL GROWTH OF GRAM NEGATIVE RODS. FINAL CULTURE AND SENSITIVITY SHOULD BE BACK TOMORROW. AN ABG WAS REPEATED THIS MORNING AND REVEALED: PH 7.280, PC02 47.0, P02 87.0, HC03 22.1, 02 SATURATION 95.0, BASE EXCESS -4.8, FI02 28.0. A CHEST XRAY WAS OBTAINED AND REVEALED: No acute cardiopulmonary abnormality or change since prior. SHE IS CURRENTLY RECEIVING D5W AT 80 ML/HR, ZOSYN 2.25G IV TID, DIFLUCAN 100MG IV DAILY, HUMULIN R SLIDING SCALE, AND HER HOME MEDICATIONS WERE RESUMED. WE WILL OBTAIN A PERIPHERAL SMEAR AND ECHO. OTHERWISE, WE WILL CONTINUE WITH CURRENT PLAN OF CARE TODAY. WE PLAN TO FOLLOW UP WITH AM LABS AND CHEST XRAY AND CONTINUE TO MONITOR. - Past Medical Family Social History Past Med/Fam/Surg Hx: No changes since H&P Allergies: Allergies oxycodone Allergy (Verified 10/02/19 18:05) - Review of Systems ROS: No change since H&P - Vital Signs and I&O's Vital Signs: Temperature 98.2 F Pulse Rate [Left] 108 Pulse Rate 74 Respiratory Rate 20 Blood Pressure [Left Arm] 87/52 Blood Pressure 168/71 O2 Sat by Pulse Oximetry 98 Intake and Output: Intake & Output 12/15/19 12/16/19 12/17/19/23/20 11:59 11:59 11:59 11:59 Intake Total 965 / 965 2851 / 2851 2282 / 2282 1309 / 1309 Output Total 250 / 250 1050 / 1050 2500 / 2500 1999 / 1999 Balance 715 / 715 1801 / 1801 -218 / -218 -691 / -691 - Physical Exam Oriented: Normal Eyes: Normal Ear: Normal Nose: Normal Throat: Normal Cardiovascular: Normal. negative: S3, S4, Murmur : Normal Auscultation: Bowel Sounds: Normal Palpation: Normal Tenderness: Normal Skin: Normal Musculoskeletal: Normal Psychiatric: Normal Mood Description: Calm Affect: Normal Speech Pattern: Clear - Laboratory and Diagnostics Result Diagrams: 12/17/19 05:17 12/17/19 05:17 Labs: 12/14/19 18:30 Blood Blood Culture - Final Klebsiella Pneumoniae 12/14/19 18:21 Blood Blood Culture - Final Klebsiella Pneumoniae Laboratory WBC 18.4 X10^3/uL (3.6-10.0) H D 12/17/19 05:17 RBC 3.05 X10^6/uL (3.5-5.4) L 12/17/19 05:17 Hgb 8.2 g/dL (12.0-16.0) L 12/17/19 05:17 Hct 25.6 % (36.0-47.0) L 12/17/19 05:17 MCV 83.9 fL (80.0-100.0) 12/17/19 05:17 MCH 26.9 pg (27.0-34.0) L 12/17/19 05:17 MCHC 32.1 g/dL (33.0-35.0) L 12/17/19 05:17 RDW 17.7 % (11.6-16.5) H 12/17/19 05:17 Plt Count 196 X10^3/uL (150.0-450.0) 12/17/19 05:17 Plt Count Comment Adequate (ADEQUATE) 12/16/19 04:56 MPV 7.9 fL (7.4-11.0) 12/17/19 05:17 Neut % (Auto) 85.2 % (42.0-75.0) H 12/17/19 05:17 Lymph % (Auto) 7.6 % (21.0-51.0) L 12/17/19 05:17 [place]pie % (Auto) 3.4 % (0.0-13.0) 12/17/19 05:17 Eos % (Auto) 3.5 % (0.9-2.9) H 12/17/19 05:17 Baso % (Auto) 0.3 % (0.2-1.0) 12/17/19 05:17 Neut # (Auto) 15.7 x10^3/uL (2.2-4.8) H 12/17/19 05:17 Lymph # (Auto) 1.4 X10^3/uL (1.3-2.9) 12/17/19 05:17 Gillespie # (Auto) 0.6 x10^3/uL (0.3-0.8) 12/17/19 05:17 Eos # (Auto) 0.6 x10^3/uL (0.0-0.2) H 12/17/19 05:17 Baso # (Auto) 0.1 X10^3/uL (0.0-0.1) 12/17/19 05:17 Absolute Nucleated RBC 0.0 /100WBC 12/17/19 05:17 Total Counted 100 12/16/19 04:56 Neutrophils % (Manual) 84 % (39-76) H 12/16/19 04:56 Band Neutrophils % 3 % (0-10) 12/16/19 04:56 Lymphocytes % (Manual) 10 % (13-43) L 12/16/19 04:56 Monocytes % (Manual) 3 % (4-9) L 12/16/19 04:56 Eosinophils % (Manual) 1 % (0-6) 12/14/19 18:21 Basophils % (Manual) 1 % (0-1) 12/14/19 18:21 Plt Morphology Comment Normal (NORMAL) 12/16/19 04:56 RBC Morphology Abnormal (NORMAL) A 12/16/19 04:56 Hypochromasia Slight A 12/16/19 04:56 Anisocytosis Slight A 12/16/19 04:56 PT 14.7 SECONDS (11.8-14.3) 12/15/19 00:04 INR Target Range - 12/15/19 00:04 INR 1.18 (0.8-1.3) 12/15/19 00:04 APTT 34.6 SECONDS (22.9-36.5) 12/15/19 00:04 PTT Comment - 12/15/19 00:04 Sample Site Lbra 12/16/19 05:12 ABG pH 7.280 (7.35-7.45) L 12/16/19 05:12 ABG pCO2 47.0 mmHg (35.0-45.0) H 12/16/19 05:12 ABG pO2 87.0 mmHg (80.0-100.0) 12/16/19 05:12 ABG HCO3 22.1 mmol/L (22-26) 12/16/19 05:12 ABG O2 Saturation 95.0 % (90-100) 12/16/19 05:12 ABG Base Excess -4.8 mmol/L (-2.0-2.0) L 12/16/19 05:12 Christos Test Na 12/16/19 05:12 A-a Gradient 54.0 mmHg 12/16/19 05:12 FiO2 28.0 12/16/19 05:12 Blood Gas Comments Mayi abg well-mtf 12/16/19 05:12 Sodium 132 mmol/L (136-145) L 12/17/19 05:17 Corrected Sodium 134 mmol/L (136-145) L 12/17/19 05:17 Potassium 5.1 mmol/L (3.5-5.1) 12/17/19 05:17 Chloride 102 mmol/L (98-107) 12/17/19 05:17 Carbon Dioxide 23.0 mmol/L (21-32) 12/17/19 05:17 BUN 50 mg/dL (7-18) H 12/17/19 05:17 Creatinine 2.06 mg/dL (0.55-1.02) H 12/17/19 05:17 Est GFR (MDRD) Af Amer 31 (>60) L 12/17/19 05:17 Est GFR (MDRD) Non-Af 26 (>60) L 12/17/19 05:17 Glucose 183 mg/dL (65-99) H 12/17/19 05:17 POC Glucose (mg/dL) 152 mg/dL (65-99) H 12/17/19 19:49 Lactic Acid 3.2 mmol/L (0.4-2.0) H 12/14/19 18:21 Calcium 8.2 mg/dL (8.5-10.1) L 12/17/19 05:17 Corrected Calcium 9.8 mg/dL (8.5-10.1) 12/17/19 05:17 Magnesium 1.6 mg/dL (1.7-2.9) L 12/17/19 05:17 Ferritin 192 ng/mL (8-252) 12/17/19 05:17 Total Bilirubin 0.20 mg/dL (0.2-1.0) 12/17/19 05:17 AST 15 Units/L (15-37) 12/17/19 05:17 ALT 15 Units/L (12-78) 12/17/19 05:17 Alkaline Phosphatase 55 Units/L (46-116) 12/17/19 05:17 Lactate Dehydrogenase 240 Units/L (81-234) H 12/15/19 00:04 C-Reactive Protein 157.30 mg/L (0-3.0) H 12/17/19 05:17 Total Protein 6.1 g/dL (6.4-8.2) L 12/17/19 05:17 Albumin 2.0 g/dL (3.4-5.0) L 12/17/19 05:17 Globulin 4.1 g/dL (2.5-4.5) 12/17/19 05:17 Albumin/Globulin Ratio 0.5 Ratio (1.1-2.1) L 12/17/19 05:17 Amylase 12 Units/L (25-115) L 12/14/19 18:21 Lipase 166 Units/L (73-393) 12/14/19 18:21 Specimen Type Catherized urine 12/14/19 18:55 Urine Color Yellow (YELLOW) 12/14/19 18:55 Urine Appearance Clear (CLEAR) 12/14/19 18:55 Urine pH 5.0 (5.0 - 8.0) 12/14/19 18:55 Ur Specific [place] 1.010 (1.000-1.030) 12/14/19 18:55 Urine Protein 2+ (NEGATIVE) 12/14/19 18:55 Urine Glucose (UA) Negative (NEGATIVE) 12/14/19 18:55 Urine Ketones Negative (NEGATIVE) 12/14/19 18:55 Urine Occult Blood 2+ (NEGATIVE) 12/14/19 18:55 Urine Nitrite Negative (NEGATIVE) 12/14/19 18:55 Urine Bilirubin Negative (NEGATIVE) 12/14/19 18:55 Urine Urobilinogen Normal (NORMAL) 12/14/19 18:55 Ur Leukocyte Esterase Negative (NEGATIVE) 12/14/19 18:55 Urine RBC 3-5 /HPF (0-3) A 12/14/19 18:55 Urine WBC 0-2 /HPF (0-5) 12/14/19 18:55 Ur Squamous Epith Cells Few /HPF (NEGATIVE) 12/14/19 18:55 Urine Bacteria Negative /HPF (NEGATIVE) 12/14/19 18:55 Ur Culture Indicated? No/not indicated 12/14/19 18:55 SARS-CoV-2 (PCR) Negative (NEGATIVE) 12/17/19 09:11 - Plan (1) Sepsis Status: Acute Qualifiers: Sepsis type: sepsis due to unspecified organism Sepsis acute organ dysfunction status: with acute organ dysfunction Severe sepsis acute organ dysfunction type: acute renal failure Acute renal failure type: unspecified Severe sepsis shock status: without septic shock Qualified Code(s): A41.9 - Sepsis, unspecified organism; R65.20 - Severe sepsis without septic shock; N17.9 - Acute kidney failure, unspecified Plan: D5W AT 80 ML/HR, ZOSYN 2.25G IV TID, DIFLUCAN 100MG IV DAILY, HUMULIN R SLIDING SCALE, AND HER HOME MEDICATIONS WERE RESUMED (2) Dehydration Status: Acute Plan: D5W AT 80 ML/HR, CONTINUE TO MONITOR (3) Hypotension Status: Acute Qualifiers: Hypotension type: unspecified hypotension type Qualified Code(s): I95.9 - Hypotension, unspecified (4) Fever Status: Acute Qualifiers: Fever type: unspecified (5) COVID-19 Status: Suspected
[2019-12-18] MEDS: D5W 1000 ML IV 1,000 ML IV SCH ×3 (02:00→18:56)
[2019-12-18] MEDS: MAGNESIUM SULFATE 1 GRAM/100 mL PREMIX 1 GM/100 ML BAG IV PRN ×2 (02:30→03:15)
[2019-12-18] MEDS: NORCO 7.5/325 MG TAB PO SCH ×3 (05:53→21:30)
[2019-12-18] MEDS: ZOSYN VIAL 2.25 GRAMS 2.25 G in NS 100 ML IV + SPIKE MINIBAG* 100 ML IV SCH ×3 (05:54→22:34)
[2019-12-18] MEDS: HumuLIN R SC PRN ×3 (05:54→17:34)
[2019-12-18 06:03] LABS: BASOPHILS # (AUTO) 0.1 X10^3/uL (0.0-0.1); BASOPHILS % (AUTO) 0.5 % (0.2-1.0); EOSINOPHILS # (AUTO) 0.4 x10^3/uL (0.0-0.2); EOSINOPHILS % (AUTO) 3.7 % (0.9-2.9); HEMATOCRIT 27.6 % (36.0-47.0); HEMOGLOBIN 8.9 g/dL (12.0-16.0); LYMPHOCYTES # (AUTO) 1.3 X10^3/uL (1.3-2.9); LYMPHOCYTES % (AUTO) 11.2 % (21.0-51.0); MEAN CORPUSCULAR HEMOGLOBIN 27.1 pg (27.0-34.0); MEAN CORPUSCULAR HGB CONC 32.3 g/dL (33.0-35.0); MONOCYTES # (AUTO) 0.4 x10^3/uL (0.3-0.8); MONOCYTES % (AUTO) 3.7 % (0.0-13.0); NEUTROPHILS # (AUTO) 9.1 x10^3/uL (2.2-4.8); NEUTROPHILS % (AUTO) 80.9 % (42.0-75.0); PLATELET COUNT 232 X10^3/uL (150.0-450.0); RED BLOOD COUNT 3.28 X10^6/uL (3.5-5.4); RED CELL DISTRIBUTION WIDTH 17.2 % (11.6-16.5); WHITE BLOOD COUNT 11.3 X10^3/uL (3.6-10.0)
--- NOTE | 2019-12-18 06:11 | RAD ---
HISTORYSOBSTUDYCHEST, 1 [id number]/22/2020FINDINGSThe trachea is midline. The cardiac silhouette is mildly enlarged. Left Port-A-Cath unchanged. Pulmonary vasculature within normal limits.. The lungs are clear without focal infiltrate or effusion. The bony thorax is unremarkable.IMPRESSIONMild cardiomegalyNo active cardiopulmonary disease noneElectronically signed by: Ketan Curiel (Dec 18, 2019 06:10:27)
[2019-12-18 06:14] LABS: ALBUMIN 2.2 g/dL (3.4-5.0); CALCIUM 8.9 mg/dL (8.5-10.1); CARBON DIOXIDE 26.9 mmol/L (21-32); COR CA(FOR HYPOALB) 10.3 mg/dL (8.5-10.1); CREATININE 1.62 mg/dL (0.55-1.02); MAGNESIUM 2.3 mg/dL (1.7-2.9); TOTAL PROTEIN 6.6 g/dL (6.4-8.2)
[2019-12-18] MEDS: PEPCID TAB 20 MG PO SCH (09:55)
[2019-12-18] MEDS: SYNTHROID 125 mcg TAB PO SCH (09:55)
[2019-12-18] MEDS: ZOFRAN INJ 4 MG VIAL IVP PRN (09:56)
[2019-12-18] MEDS: MICRO K EXTEN CAP 10 MEQ PO SCH ×2 (09:56→20:52)
[2019-12-18] MEDS: REQUIP PO SCH ×2 (09:56→20:50)
[2019-12-18] MEDS: NexIUM PO SCH (09:56)
[2019-12-18] MEDS: ZANAFLEX PO SCH ×2 (09:56→20:50)
[2019-12-18] MEDS: LEVEMIR SC SCH (09:57)
[2019-12-18] MEDS: COREG TAB 3.125 MG PO SCH ×2 (10:01→20:51)
--- NOTE | 2019-12-18 10:30 | PCM.PROG ---
Progress Note - Progress Note for Day of Date of Exam: 12/17/19 - Subjective Subjective: IS BEING TREATED FOR SEPSIS, DEHYDRATION, HYPOTENSION, FEVER, RULE OUT COVID-19. TODAY, SHE IS ALERT AND ORIENTED, LYING IN BED ON MORNING ROUNDS. SHE CONTINUES WITH WEAKNESS THIS MORNING. SHE ALSO REPORTS SHORTNESS OF BREATH. ON EXAMINATION, HEART IS REGULAR IN RATE AND RHYTHM. MONI ATERAL LUNGS ARE NOTED WITH DIMINISHED LUNG SOUNDS THROUGHOUT. ABDOMEN IS ROUND, SOFT, AND NON-TENDER. NORMAL BOWEL SOUNDS ARE NOTED IN ALL QUADRNANTS. HER VITALS THIS MORNING ARE: 97.8-73-14-99%-149/67. LABS WERE OBTAINED. ABNORMAL LAB VALUES INCLUDE THE FOLLOWING: WBC 18.4, RBC 3.05, HGB 8.2, HCT 25.6, SODIUM 132, BUN 50, CREATININE 2.06, GLUCOSE 183, CALCIUM 8.2, MAGNESIUM 1.6, CRP 157.30, TOTAL PROTEIN 6.1, ALBUMIN 2.0. BLOOD CULTURES REVEAL GROWTH OF KLEBSIELLA PNEUMONIAE. IT IS SENSITIVE TO THE ZOSYN THAT SHE IS ALREADY RECEIVING. A CHEST XRAY WAS OBTAINED AND REVEALED: Possible new small left pleural effusion. AN ECHO WAS OBTAINED AND REVEALED AN EJECTION FRACTION OF 53%. SHE IS CURRENTLY RECEIVING D5W AT 80 ML/HR, ZOSYN 2.25G IV TID, DIFLUCAN 100MG IV DAILY, HUMULIN R SLIDING SCALE, AND HER HOME MEDICATIONS WERE RESUMED. OTHERWISE, WE WILL CONTINUE WITH CURRENT PLAN OF CARE TODAY. WE PLAN TO FOLLOW UP WITH AM LABS AND CHEST XRAY AND CONTINUE TO MONITOR. - Past Medical Family Social History Past Med/Fam/Surg Hx: No changes since H&P Allergies: Allergies oxycodone Allergy (Verified 10/02/19 18:05) - Review of Systems ROS: No change since H&P - Vital Signs and I&O's Vital Signs: Temperature 97.8 F Pulse Rate [Left] 74 Pulse Rate 74 Respiratory Rate 20 Blood Pressure [Left Arm] 186/73 Blood Pressure 168/71 O2 Sat by Pulse Oximetry 94 Intake and Output: Intake & Output 12/15/19 12/16/19 12/17/19 12/18/19 11:59 11:59 11:59 11:59 Intake Total 965 / 965 2851 / 2851 2282 / 2282 3889 / 3889 Output Total 250 / 250 1050 / 1050 2500 / 2500 3950 / 3950 Balance 715 / 715 1801 / 1801 -218 / -218 -61 / -61 - Physical Exam Oriented: Normal Eyes: Normal Ear: Normal Nose: Normal Throat: Normal Respiratory: Generalized, Diminished Cardiovascular: Normal. negative: S3, S4, Murmur : Normal Auscultation: Bowel Sounds: Normal Palpation: Normal Tenderness: Normal Skin: Normal Musculoskeletal: Normal Psychiatric: Normal Mood Description: Calm Affect: Normal Speech Pattern: Clear - Laboratory and Diagnostics Result Diagrams: 12/18/19 05:15 12/18/19 05:15 Labs: 12/14/19 18:30 Blood Blood Culture - Final Klebsiella Pneumoniae 12/14/19 18:21 Blood Blood Culture - Final Klebsiella Pneumoniae Laboratory WBC 11.3 X10^3/uL (3.6-10.0) H 12/18/19 05:15 RBC 3.28 X10^6/uL (3.5-5.4) L 12/18/19 05:15 Hgb 8.9 g/dL (12.0-16.0) L 12/18/19 05:15 Hct 27.6 % (36.0-47.0) L 12/18/19 05:15 MCV 84.0 fL (80.0-100.0) 12/18/19 05:15 MCH 27.1 pg (27.0-34.0) 12/18/19 05:15 MCHC 32.3 g/dL (33.0-35.0) L 12/18/19 05:15 RDW 17.2 % (11.6-16.5) H 12/18/19 05:15 Plt Count 232 X10^3/uL (150.0-450.0) 12/18/19 05:15 Plt Count Comment Adequate (ADEQUATE) 12/16/19 04:56 MPV 8.0 fL (7.4-11.0) 12/18/19 05:15 Neut % (Auto) 80.9 % (42.0-75.0) H 12/18/19 05:15 Lymph % (Auto) 11.2 % (21.0-51.0) L 12/18/19 05:15 Mower % (Auto) 3.7 % (0.0-13.0) 12/18/19 05:15 Eos % (Auto) 3.7 % (0.9-2.9) H 12/18/19 05:15 Baso % (Auto) 0.5 % (0.2-1.0) 12/18/19 05:15 Neut # (Auto) 9.1 x10^3/uL (2.2-4.8) H 12/18/19 05:15 Lymph # (Auto) 1.3 X10^3/uL (1.3-2.9) 12/18/19 05:15 Mower # (Auto) 0.4 x10^3/uL (0.3-0.8) 12/18/19 05:15 Eos # (Auto) 0.4 x10^3/uL (0.0-0.2) H 12/18/19 05:15 Baso # (Auto) 0.1 X10^3/uL (0.0-0.1) 12/18/19 05:15 Absolute Nucleated RBC 0.0 /100WBC 12/18/19 05:15 Total Counted 100 12/16/19 04:56 Neutrophils % (Manual) 84 % (39-76) H 12/16/19 04:56 Band Neutrophils % 3 % (0-10) 12/16/19 04:56 Lymphocytes % (Manual) 10 % (13-43) L 12/16/19 04:56 Monocytes % (Manual) 3 % (4-9) L 12/16/19 04:56 Eosinophils % (Manual) 1 % (0-6) 12/14/19 18:21 Basophils % (Manual) 1 % (0-1) 12/14/19 18:21 Plt Morphology Comment Normal (NORMAL) 12/16/19 04:56 RBC Morphology Abnormal (NORMAL) A 12/16/19 04:56 Hypochromasia Slight A 12/16/19 04:56 Anisocytosis Slight A 12/16/19 04:56 PT 14.7 SECONDS (11.8-14.3) 12/15/19 00:04 INR Target Range - 12/15/19 00:04 INR 1.18 (0.8-1.3) 12/15/19 00:04 APTT 34.6 SECONDS (22.9-36.5) 12/15/19 00:04 PTT Comment - 12/15/19 00:04 Sample Site Lbra 12/16/19 05:12 ABG pH 7.280 (7.35-7.45) L 12/16/19 05:12 ABG pCO2 47.0 mmHg (35.0-45.0) H 12/16/19 05:12 ABG pO2 87.0 mmHg (80.0-100.0) 12/16/19 05:12 ABG HCO3 22.1 mmol/L (22-26) 12/16/19 05:12 ABG O2 Saturation 95.0 % (90-100) 12/16/19 05:12 ABG Base Excess -4.8 mmol/L (-2.0-2.0) L 12/16/19 05:12 Christos Test Na 12/16/19 05:12 A-a Gradient 54.0 mmHg 12/16/19 05:12 FiO2 28.0 12/16/19 05:12 Blood Gas Comments Mayi abg well-mtf 12/16/19 05:12 Sodium 135 mmol/L (136-145) L 12/18/19 05:15 Corrected Sodium 138 mmol/L (136-145) 12/18/19 05:15 Potassium 5.3 mmol/L (3.5-5.1) H 12/18/19 05:15 Chloride 103 mmol/L (98-107) 12/18/19 05:15 Carbon Dioxide 26.9 mmol/L (21-32) 12/18/19 05:15 BUN 37 mg/dL (7-18) H 12/18/19 05:15 Creatinine 1.62 mg/dL (0.55-1.02) H 12/18/19 05:15 Est GFR (MDRD) Af Amer 41 (>60) L 12/18/19 05:15 Est GFR (MDRD) Non-Af 34 (>60) L 12/18/19 05:15 Glucose 214 mg/dL (65-99) H 12/18/19 05:15 POC Glucose (mg/dL) 201 mg/dL (65-99) H 12/18/19 05:09 Lactic Acid 3.2 mmol/L (0.4-2.0) H 12/14/19 18:21 Calcium 8.9 mg/dL (8.5-10.1) 12/18/19 05:15 Corrected Calcium 10.3 mg/dL (8.5-10.1) H 12/18/19 05:15 Magnesium 2.3 mg/dL (1.7-2.9) 12/18/19 05:15 Ferritin 202 ng/mL (8-252) 12/18/19 05:15 Total Bilirubin 0.30 mg/dL (0.2-1.0) 12/18/19 05:15 AST 12 Units/L (15-37) L 12/18/19 05:15 ALT 10 Units/L (12-78) L 12/18/19 05:15 Alkaline Phosphatase 61 Units/L (46-116) 12/18/19 05:15 Lactate Dehydrogenase 240 Units/L (81-234) H 12/15/19 00:04 C-Reactive Protein 86.40 mg/L (0-3.0) H 12/18/19 05:15 Total Protein 6.6 g/dL (6.4-8.2) 12/18/19 05:15 Albumin 2.2 g/dL (3.4-5.0) L 12/18/19 05:15 Globulin 4.4 g/dL (2.5-4.5) 12/18/19 05:15 Albumin/Globulin Ratio 0.5 Ratio (1.1-2.1) L 12/18/19 05:15 Amylase 12 Units/L (25-115) L 12/14/19 18:21 Lipase 166 Units/L (73-393) 12/14/19 18:21 Specimen Type Catherized urine 12/14/19 18:55 Urine Color Yellow (YELLOW) 12/14/19 18:55 Urine Appearance Clear (CLEAR) 12/14/19 18:55 Urine pH 5.0 (5.0 - 8.0) 12/14/19 18:55 Ur Specific [place] 1.010 (1.000-1.030) 12/14/19 18:55 Urine Protein 2+ (NEGATIVE) 12/14/19 18:55 Urine Glucose (UA) Negative (NEGATIVE) 12/14/19 18:55 Urine Ketones Negative (NEGATIVE) 12/14/19 18:55 Urine Occult Blood 2+ (NEGATIVE) 12/14/19 18:55 Urine Nitrite Negative (NEGATIVE) 12/14/19 18:55 Urine Bilirubin Negative (NEGATIVE) 12/14/19 18:55 Urine Urobilinogen Normal (NORMAL) 12/14/19 18:55 Ur Leukocyte Esterase Negative (NEGATIVE) 12/14/19 18:55 Urine RBC 3-5 /HPF (0-3) A 12/14/19 18:55 Urine WBC 0-2 /HPF (0-5) 12/14/19 18:55 Ur Squamous Epith Cells Few /HPF (NEGATIVE) 12/14/19 18:55 Urine Bacteria Negative /HPF (NEGATIVE) 12/14/19 18:55 Ur Culture Indicated? No/not indicated 12/14/19 18:55 SARS-CoV-2 (PCR) Negative (NEGATIVE) 12/17/19 09:11 - Plan (1) Sepsis Status: Acute Qualifiers: Sepsis type: sepsis due to unspecified organism Sepsis acute organ dysfunction status: with acute organ dysfunction Severe sepsis acute organ dysfunction type: acute renal failure Acute renal failure type: unspecified Severe sepsis shock status: without septic shock Qualified Code(s): A41.9 - Sepsis, unspecified organism; R65.20 - Severe sepsis without septic shock; N17.9 - Acute kidney failure, unspecified Plan: D5W AT 80 ML/HR, ZOSYN 2.25G IV TID, DIFLUCAN 100MG IV DAILY, HUMULIN R SLIDING SCALE, AND HER HOME MEDICATIONS WERE RESUMED (2) Dehydration Status: Acute Plan: D5W AT 80 ML/HR, CONTINUE TO MONITOR (3) Hypotension Status: Acute Qualifiers: Hypotension type: unspecified hypotension type Qualified Code(s): I95.9 - Hypotension, unspecified (4) Fever Status: Acute Qualifiers: Fever type: unspecified (5) COVID-19 Status: Suspected
--- NOTE | 2019-12-18 10:34 | PCM.PROG ---
Progress Note - Progress Note for Day of Date of Exam: 12/18/19 - Subjective Subjective: IS BEING TREATED FOR SEPSIS, DEHYDRATION, HYPOTENSION, FEVER, RULE OUT COVID-19. TODAY, SHE IS ALERT AND ORIENTED, LYING IN BED ON MORNING ROUNDS. SHE CONTINUES WITH WEAKNESS AND SHORTNESS OF BREATH THIS MORNING. ON EXAMINATION, HEART IS REGULAR IN RATE AND RHYTHM. BILATERAL LUNGS A RE NOTED WITH DIMINISHED LUNG SOUNDS THROUGHOUT. ABDOMEN IS ROUND, SOFT, AND NON-TENDER. NORMAL BOWEL SOUNDS ARE NOTED IN ALL QUADRNANTS. HER VITALS THIS MORNING ARE: 97.8-74-20-94%NC-186/73. LABS WERE OBTAINED. ABNORMAL LAB VALUES INCLUDE THE FOLLOWING: WBC 11.3, RBC 3.28, HGB 8.9, HCT 27.8, SODIUM 135, POTASSIUM 5.3, BUN 37, CREATININE 1.62, GLUCOSE 214, CALCIUM 10.3, AST 12, ALT 10, CRP 86.40, ALBUMIN 2.2. BLOOD CULTURES REVEAL GROWTH OF KLEBSIELLA PNEUMONIAE. IT IS SENSITIVE TO THE ZOSYN THAT SHE IS ALREADY RECEIVING. A CHEST XRAY WAS OBTAINED AND REVEALED: Mild cardiomegaly. No active cardiopulmonary disease none. SHE IS CURRENTLY RECEIVING D5W AT 80 ML/HR, ZOSYN 2.25G IV TID, DIFLUCAN 100MG IV DAILY, HUMULIN R SLIDING SCALE, AND HER HOME MEDICATIONS WERE RESUMED. WE WILL CONTINUE WITH CURRENT PLAN OF CARE TODAY. OTHERWISE, WE PLAN TO FOLLOW UP WITH AM LABS AND CHEST XRAY AND CONTINUE TO MONITOR. - Past Medical Family Social History Past Med/Fam/Surg Hx: No changes since H&P Allergies: Allergies oxycodone Allergy (Verified 10/02/19 18:05) - Review of Systems ROS: No change since H&P - Vital Signs and I&O's Vital Signs: Temperature 97.8 F Pulse Rate [Left] 74 Pulse Rate 74 Respiratory Rate 20 Blood Pressure [Left Arm] 186/73 Blood Pressure 168/71 O2 Sat by Pulse Oximetry 94 Intake and Output: Intake & Output 12/15/19 12/16/19 12/17/19 12/18/19 11:59 11:59 11:59 11:59 Intake Total 965 / 965 2851 / 2851 2282 / 2282 3889 / 3889 Output Total 250 / 250 1050 / 1050 2500 / 2500 3950 / 3950 Balance 715 / 715 1801 / 1801 -218 / -218 -61 / -61 - Physical Exam Oriented: Normal Eyes: Normal Ear: Normal Nose: Normal Throat: Normal Respiratory: Generalized, Diminished Cardiovascular: Normal. negative: S3, S4, Murmur : Normal Auscultation: Bowel Sounds: Normal Tenderness: Normal Skin: Normal Musculoskeletal: Normal Psychiatric: Normal Mood Description: Calm Affect: Normal Speech Pattern: Clear - Laboratory and Diagnostics Result Diagrams: 12/18/19 05:15 12/18/19 05:15 Labs: 12/14/19 18:30 Blood Blood Culture - Final Klebsiella Pneumoniae 12/14/19 18:21 Blood Blood Culture - Final Klebsiella Pneumoniae Laboratory WBC 11.3 X10^3/uL (3.6-10.0) H 12/18/19 05:15 RBC 3.28 X10^6/uL (3.5-5.4) L 12/18/19 05:15 Hgb 8.9 g/dL (12.0-16.0) L 12/18/19 05:15 Hct 27.6 % (36.0-47.0) L 12/18/19 05:15 MCV 84.0 fL (80.0-100.0) 12/18/19 05:15 MCH 27.1 pg (27.0-34.0) 12/18/19 05:15 MCHC 32.3 g/dL (33.0-35.0) L 12/18/19 05:15 RDW 17.2 % (11.6-16.5) H 12/18/19 05:15 Plt Count 232 X10^3/uL (150.0-450.0) 12/18/19 05:15 Plt Count Comment Adequate (ADEQUATE) 12/16/19 04:56 MPV 8.0 fL (7.4-11.0) 12/18/19 05:15 Neut % (Auto) 80.9 % (42.0-75.0) H 12/18/19 05:15 Lymph % (Auto) 11.2 % (21.0-51.0) L 12/18/19 05:15 [place] % (Auto) 3.7 % (0.0-13.0) 12/18/19 05:15 Eos % (Auto) 3.7 % (0.9-2.9) H 12/18/19 05:15 Baso % (Auto) 0.5 % (0.2-1.0) 12/18/19 05:15 Neut # (Auto) 9.1 x10^3/uL (2.2-4.8) H 12/18/19 05:15 Lymph # (Auto) 1.3 X10^3/uL (1.3-2.9) 12/18/19 05:15 [place] # (Auto) 0.4 x10^3/uL (0.3-0.8) 12/18/19 05:15 Eos # (Auto) 0.4 x10^3/uL (0.0-0.2) H 12/18/19 05:15 Baso # (Auto) 0.1 X10^3/uL (0.0-0.1) 12/18/19 05:15 Absolute Nucleated RBC 0.0 /100WBC 12/18/19 05:15 Total Counted 100 12/16/19 04:56 Neutrophils % (Manual) 84 % (39-76) H 12/16/19 04:56 Band Neutrophils % 3 % (0-10) 12/16/19 04:56 Lymphocytes % (Manual) 10 % (13-43) L 12/16/19 04:56 Monocytes % (Manual) 3 % (4-9) L 12/16/19 04:56 Eosinophils % (Manual) 1 % (0-6) 12/14/19 18:21 Basophils % (Manual) 1 % (0-1) 12/14/19 18:21 Plt Morphology Comment Normal (NORMAL) 12/16/19 04:56 RBC Morphology Abnormal (NORMAL) A 12/16/19 04:56 Hypochromasia Slight A 12/16/19 04:56 Anisocytosis Slight A 12/16/19 04:56 PT 14.7 SECONDS (11.8-14.3) 12/15/19 00:04 INR Target Range - 12/15/19 00:04 INR 1.18 (0.8-1.3) 12/15/19 00:04 APTT 34.6 SECONDS (22.9-36.5) 12/15/19 00:04 PTT Comment - 12/15/19 00:04 Sample Site Lbra 12/16/19 05:12 ABG pH 7.280 (7.35-7.45) L 12/16/19 05:12 ABG pCO2 47.0 mmHg (35.0-45.0) H 12/16/19 05:12 ABG pO2 87.0 mmHg (80.0-100.0) 12/16/19 05:12 ABG HCO3 22.1 mmol/L (22-26) 12/16/19 05:12 ABG O2 Saturation 95.0 % (90-100) 12/16/19 05:12 ABG Base Excess -4.8 mmol/L (-2.0-2.0) L 12/16/19 05:12 Christos Test Na 12/16/19 05:12 A-a Gradient 54.0 mmHg 12/16/19 05:12 FiO2 28.0 12/16/19 05:12 Blood Gas Comments Mayi abg well-mtf 12/16/19 05:12 Sodium 135 mmol/L (136-145) L 12/18/19 05:15 Corrected Sodium 138 mmol/L (136-145) 12/18/19 05:15 Potassium 5.3 mmol/L (3.5-5.1) H 12/18/19 05:15 Chloride 103 mmol/L (98-107) 12/18/19 05:15 Carbon Dioxide 26.9 mmol/L (21-32) 12/18/19 05:15 BUN 37 mg/dL (7-18) H 12/18/19 05:15 Creatinine 1.62 mg/dL (0.55-1.02) H 12/18/19 05:15 Est GFR (MDRD) Af Amer 41 (>60) L 12/18/19 05:15 Est GFR (MDRD) Non-Af 34 (>60) L 12/18/19 05:15 Glucose 214 mg/dL (65-99) H 12/18/19 05:15 POC Glucose (mg/dL) 201 mg/dL (65-99) H 12/18/19 05:09 Lactic Acid 3.2 mmol/L (0.4-2.0) H 12/14/19 18:21 Calcium 8.9 mg/dL (8.5-10.1) 12/18/19 05:15 Corrected Calcium 10.3 mg/dL (8.5-10.1) H 12/18/19 05:15 Magnesium 2.3 mg/dL (1.7-2.9) 12/18/19 05:15 Ferritin 202 ng/mL (8-252) 12/18/19 05:15 Total Bilirubin 0.30 mg/dL (0.2-1.0) 12/18/19 05:15 AST 12 Units/L (15-37) L 12/18/19 05:15 ALT 10 Units/L (12-78) L 12/18/19 05:15 Alkaline Phosphatase 61 Units/L (46-116) 12/18/19 05:15 Lactate Dehydrogenase 240 Units/L (81-234) H 12/15/19 00:04 C-Reactive Protein 86.40 mg/L (0-3.0) H 12/18/19 05:15 Total Protein 6.6 g/dL (6.4-8.2) 12/18/19 05:15 Albumin 2.2 g/dL (3.4-5.0) L 12/18/19 05:15 Globulin 4.4 g/dL (2.5-4.5) 12/18/19 05:15 Albumin/Globulin Ratio 0.5 Ratio (1.1-2.1) L 12/18/19 05:15 Amylase 12 Units/L (25-115) L 12/14/19 18:21 Lipase 166 Units/L (73-393) 12/14/19 18:21 Specimen Type Catherized urine 12/14/19 18:55 Urine Color Yellow (YELLOW) 12/14/19 18:55 Urine Appearance Clear (CLEAR) 12/14/19 18:55 Urine pH 5.0 (5.0 - 8.0) 12/14/19 18:55 Ur Specific [place] 1.010 (1.000-1.030) 12/14/19 18:55 Urine Protein 2+ (NEGATIVE) 12/14/19 18:55 Urine Glucose (UA) Negative (NEGATIVE) 12/14/19 18:55 Urine Ketones Negative (NEGATIVE) 12/14/19 18:55 Urine Occult Blood 2+ (NEGATIVE) 12/14/19 18:55 Urine Nitrite Negative (NEGATIVE) 12/14/19 18:55 Urine Bilirubin Negative (NEGATIVE) 12/14/19 18:55 Urine Urobilinogen Normal (NORMAL) 12/14/19 18:55 Ur Leukocyte Esterase Negative (NEGATIVE) 12/14/19 18:55 Urine RBC 3-5 /HPF (0-3) A 12/14/19 18:55 Urine WBC 0-2 /HPF (0-5) 12/14/19 18:55 Ur Squamous Epith Cells Few /HPF (NEGATIVE) 12/14/19 18:55 Urine Bacteria Negative /HPF (NEGATIVE) 12/14/19 18:55 Ur Culture Indicated? No/not indicated 12/14/19 18:55 SARS-CoV-2 (PCR) Negative (NEGATIVE) 12/17/19 09:11 - Plan (1) Sepsis Status: Acute Qualifiers: Sepsis type: sepsis due to unspecified organism Sepsis acute organ dysfunction status: with acute organ dysfunction Severe sepsis acute organ dysfunction type: acute renal failure Acute renal failure type: unspecified Severe sepsis shock status: without septic shock Qualified Code(s): A41.9 - Sepsis, unspecified organism; R65.20 - Severe sepsis without septic shock; N17.9 - Acute kidney failure, unspecified Plan: D5W AT 80 ML/HR, ZOSYN 2.25G IV TID, DIFLUCAN 100MG IV DAILY, HUMULIN R SLIDING SCALE, AND HER HOME MEDICATIONS WERE RESUMED (2) Dehydration Status: Acute Plan: D5W AT 80 ML/HR, CONTINUE TO MONITOR (3) Hypotension Status: Acute Qualifiers: Hypotension type: unspecified hypotension type Qualified Code(s): I95.9 - Hypotension, unspecified (4) Fever Status: Acute Qualifiers: Fever type: unspecified (5) COVID-19 Status: Suspected
[2019-12-18] MEDS: DILAUDID INJ IVP PRN (11:30)
[2019-12-18] MEDS: ABILIFY PO SCH (11:31)
[2019-12-18] MEDS: CYMBALTA PO SCH (20:51)
[2019-12-18] MEDS: ZOCOR TAB 40 MG PO SCH (20:51)
[2019-12-18] MEDS: DIFLUCAN 100 MG IV (MIX by PHARMACY)* 100 MG/50 ML BAG IV SCH (21:39)
[2019-12-18] MEDS: SNACK - Diabetic Appropriate PO SCH (23:45)
[2019-12-19] MEDS: D5W 1000 ML IV 1,000 ML IV SCH (04:25)
[2019-12-19] MEDS ORDERED: PHENERGAN INJ 25 MG IM PRN (04:59)
[2019-12-19] MEDS: NORCO 7.5/325 MG TAB PO SCH ×3 (05:09→22:00)
[2019-12-19 05:57] LABS: ALBUMIN 2.3 g/dL (3.4-5.0); CALCIUM 9.1 mg/dL (8.5-10.1); CARBON DIOXIDE 26.1 mmol/L (21-32); COR CA(FOR HYPOALB) 10.5 mg/dL (8.5-10.1); CREATININE 1.27 mg/dL (0.55-1.02); TOTAL PROTEIN 7.1 g/dL (6.4-8.2)
[2019-12-19 06:06] LABS: BASOPHILS # (AUTO) 0.1 X10^3/uL (0.0-0.1); BASOPHILS % (AUTO) 0.9 % (0.2-1.0); EOSINOPHILS # (AUTO) 0.6 x10^3/uL (0.0-0.2); EOSINOPHILS % (AUTO) 5.8 % (0.9-2.9); HEMATOCRIT 30.5 % (36.0-47.0); HEMOGLOBIN 9.9 g/dL (12.0-16.0); LYMPHOCYTES # (AUTO) 1.2 X10^3/uL (1.3-2.9); LYMPHOCYTES % (AUTO) 11.4 % (21.0-51.0); MEAN CORPUSCULAR HGB CONC 32.4 g/dL (33.0-35.0); MEAN CORPUSCULAR VOLUME 83.5 fL (80.0-100.0); MEAN PLATELET VOLUME 7.7 fL (7.4-11.0); MONOCYTES # (AUTO) 0.6 x10^3/uL (0.3-0.8); MONOCYTES % (AUTO) 5.4 % (0.0-13.0); NEUTROPHILS # (AUTO) 8.4 x10^3/uL (2.2-4.8); NEUTROPHILS % (AUTO) 76.5 % (42.0-75.0); PLATELET COUNT 258 X10^3/uL (150.0-450.0); RED BLOOD COUNT 3.65 X10^6/uL (3.5-5.4); RED CELL DISTRIBUTION WIDTH 17.1 % (11.6-16.5)
[2019-12-19] MEDS: ZOSYN VIAL 2.25 GRAMS 2.25 G in NS 100 ML IV + SPIKE MINIBAG* 100 ML IV SCH ×3 (06:09→22:00)
[2019-12-19] MEDS: ABILIFY PO SCH (08:46)
[2019-12-19] MEDS: REQUIP PO SCH ×2 (08:47→20:41)
[2019-12-19] MEDS: COREG TAB 3.125 MG PO SCH ×2 (08:47→20:40)
[2019-12-19] MEDS: ZANAFLEX PO SCH ×2 (08:47→20:39)
[2019-12-19] MEDS: PEPCID TAB 20 MG PO SCH (08:47)
[2019-12-19] MEDS: NexIUM PO SCH (08:47)
[2019-12-19] MEDS: SYNTHROID 125 mcg TAB PO SCH (08:47)
[2019-12-19] MEDS: MICRO K EXTEN CAP 10 MEQ PO SCH ×2 (08:47→20:40)
[2019-12-19] MEDS: LEVEMIR SC SCH (08:48)
[2019-12-19] MEDS: HumuLIN R SC PRN (12:10)
[2019-12-19] MEDS: ZOCOR TAB 40 MG PO SCH (20:39)
[2019-12-19] MEDS: CYMBALTA PO SCH (20:41)
[2019-12-19] MEDS: DIFLUCAN 200 MG IV PREMIX* 200 MG/100 ML BAG IV SCH (21:00)
--- NOTE | 2019-12-19 22:29 | PCM.PROG ---
Progress Note - Progress Note for Day of Date of Exam: 12/19/19 - Subjective Subjective: IS BEING TREATED FOR SEPSIS, DEHYDRATION, HYPOTENSION, FEVER. TODAY, SHE IS ALERT AND ORIENTED, LYING IN BED ON MORNING ROUNDS. SHE CONTINUES WITH WEAKNESS AND SHORTNESS OF BREATH THIS MORNING, BUT REPORTS SLIGHT IMPROVEMENT IN SYMPTOMS. ON EXAMINATION, HEART IS REGULAR IN RATE AND RHYTHM. BILATERAL LUNGS ARE NOTED WITH DIMINISHED LUNG SOUNDS THROUGHOUT. ABDOMEN IS ROUND, SOFT, AND NON-TENDER. NORMAL BOWEL SOUNDS ARE NOTED IN ALL QUADRNANTS. HER VITALS THIS MORNING ARE: 98.1-82-20-94%NC-187/80. LABS WERE OBTAINED. ABNORMAL LAB VALUES INCLUDE THE FOLLOWING: WBC 11.0, HGB 9.9, HCT 30.5, SODIUM 134, POTASSIUM 5.7, BUN 24, CREATININE 1.27, GLUCOSE 187, AST 12, ALT 9, CRP 50.90, ALBUMIN 2.3. BLOOD CULTURES REVEAL GROWTH OF KLEBSIELLA PNEUMONIAE. IT IS SENSITIVE TO THE ZOSYN THAT SHE IS ALREADY RECEIVING. A CHEST XRAY WAS OBTAINED AND REVEALED: Mild cardiomegaly. No active cardiopulmonary disease none. SHE IS CURRENTLY RECEIVING D5W AT 80 ML/HR, ZOSYN 2.25G IV TID, DIFLUCAN 100MG IV DAILY, HUMULIN R SLIDING SCALE, AND HER HOME MEDICATIONS WERE RESUMED. WE WILL CONTINUE WITH CURRENT PLAN OF CARE TODAY. OTHERWISE, WE PLAN TO FOLLOW UP WITH AM LABS AND CHEST XRAY AND CONTINUE TO MONITOR. - Past Medical Family Social History Past Med/Fam/Surg Hx: No changes since H&P Allergies: Allergies oxycodone Allergy (Verified 10/02/19 18:05) - Review of Systems ROS: No change since H&P - Vital Signs and I&O's Vital Signs: Temperature 98.6 F Pulse Rate [Left] 80 Pulse Rate 74 Respiratory Rate 20 Blood Pressure [Left Arm] 152/89 Blood Pressure 168/71 O2 Sat by Pulse Oximetry 94 Intake and Output: Intake & Output 12/17/19 12/18/19 12/19/19 12/20/19 11:59 11:59 11:59 11:59 Intake Total 2282 / 2282 3889 / 3889 1660 / 1660 500 / 500 Output Total 2500 / 2500 3950 / 3950 2100 / 2100 1200 / 1200 Balance -218 / -218 -61 / -61 -440 / -440 -700 / -700 - Physical Exam Oriented: Normal Eyes: Normal Ear: Normal Nose: Normal Throat: Normal Respiratory: Generalized, Diminished Cardiovascular: Normal. negative: S3, S4, Murmur : Normal Auscultation: Bowel Sounds: Normal Tenderness: Normal Skin: Normal Musculoskeletal: Normal Psychiatric: Normal Mood Description: Calm Affect: Normal Speech Pattern: Clear - Laboratory and Diagnostics Result Diagrams: 12/19/19 05:04 12/19/19 05:04 Labs: 12/14/19 18:30 Blood Blood Culture - Final Klebsiella Pneumoniae 12/14/19 18:21 Blood Blood Culture - Final Klebsiella Pneumoniae Laboratory WBC 11.0 X10^3/uL (3.6-10.0) H 12/19/19 05:04 RBC 3.65 X10^6/uL (3.5-5.4) 12/19/19 05:04 Hgb 9.9 g/dL (12.0-16.0) L 12/19/19 05:04 Hct 30.5 % (36.0-47.0) L 12/19/19 05:04 MCV 83.5 fL (80.0-100.0) 12/19/19 05:04 MCH 27.0 pg (27.0-34.0) 12/19/19 05:04 MCHC 32.4 g/dL (33.0-35.0) L 12/19/19 05:04 RDW 17.1 % (11.6-16.5) H 12/19/19 05:04 Plt Count 258 X10^3/uL (150.0-450.0) 12/19/19 05:04 Plt Count Comment Adequate (ADEQUATE) 12/16/19 04:56 MPV 7.7 fL (7.4-11.0) 12/19/19 05:04 Neut % (Auto) 76.5 % (42.0-75.0) H 12/19/19 05:04 Lymph % (Auto) 11.4 % (21.0-51.0) L 12/19/19 05:04 [place] % (Auto) 5.4 % (0.0-13.0) 12/19/19 05:04 Eos % (Auto) 5.8 % (0.9-2.9) H 12/19/19 05:04 Baso % (Auto) 0.9 % (0.2-1.0) 12/19/19 05:04 Neut # (Auto) 8.4 x10^3/uL (2.2-4.8) H 12/19/19 05:04 Lymph # (Auto) 1.2 X10^3/uL (1.3-2.9) L 12/19/19 05:04 [place] # (Auto) 0.6 x10^3/uL (0.3-0.8) 12/19/19 05:04 Eos # (Auto) 0.6 x10^3/uL (0.0-0.2) H 12/19/19 05:04 Baso # (Auto) 0.1 X10^3/uL (0.0-0.1) 12/19/19 05:04 Absolute Nucleated RBC 0.1 /100WBC 12/19/19 05:04 Total Counted 100 12/16/19 04:56 Neutrophils % (Manual) 84 % (39-76) H 12/16/19 04:56 Band Neutrophils % 3 % (0-10) 12/16/19 04:56 Lymphocytes % (Manual) 10 % (13-43) L 12/16/19 04:56 Monocytes % (Manual) 3 % (4-9) L 12/16/19 04:56 Eosinophils % (Manual) 1 % (0-6) 12/14/19 18:21 Basophils % (Manual) 1 % (0-1) 12/14/19 18:21 Plt Morphology Comment Normal (NORMAL) 12/16/19 04:56 RBC Morphology Abnormal (NORMAL) A 12/16/19 04:56 Hypochromasia Slight A 12/16/19 04:56 Anisocytosis Slight A 12/16/19 04:56 PT 14.7 SECONDS (11.8-14.3) 12/15/19 00:04 INR Target Range - 12/15/19 00:04 INR 1.18 (0.8-1.3) 12/15/19 00:04 APTT 34.6 SECONDS (22.9-36.5) 12/15/19 00:04 PTT Comment - 12/15/19 00:04 Sample Site Lbra 12/16/19 05:12 ABG pH 7.280 (7.35-7.45) L 12/16/19 05:12 ABG pCO2 47.0 mmHg (35.0-45.0) H 12/16/19 05:12 ABG pO2 87.0 mmHg (80.0-100.0) 12/16/19 05:12 ABG HCO3 22.1 mmol/L (22-26) 12/16/19 05:12 ABG O2 Saturation 95.0 % (90-100) 12/16/19 05:12 ABG Base Excess -4.8 mmol/L (-2.0-2.0) L 12/16/19 05:12 Christos Test Na 12/16/19 05:12 A-a Gradient 54.0 mmHg 12/16/19 05:12 FiO2 28.0 12/16/19 05:12 Blood Gas Comments Mayi abg well-mtf 12/16/19 05:12 Sodium 134 mmol/L (136-145) L 12/19/19 05:04 Corrected Sodium 136 mmol/L (136-145) 12/19/19 05:04 Potassium 5.7 mmol/L (3.5-5.1) H 12/19/19 05:04 Chloride 102 mmol/L (98-107) 12/19/19 05:04 Carbon Dioxide 26.1 mmol/L (21-32) 12/19/19 05:04 BUN 24 mg/dL (7-18) H 12/19/19 05:04 Creatinine 1.27 mg/dL (0.55-1.02) H 12/19/19 05:04 Est GFR (MDRD) Af Amer 54 (>60) L 12/19/19 05:04 Est GFR (MDRD) Non-Af 45 (>60) L 12/19/19 05:04 Glucose 187 mg/dL (65-99) H 12/19/19 05:04 POC Glucose (mg/dL) 213 mg/dL (65-99) H 12/19/19 20:01 Lactic Acid 3.2 mmol/L (0.4-2.0) H 12/14/19 18:21 Calcium 9.1 mg/dL (8.5-10.1) 12/19/19 05:04 Corrected Calcium 10.5 mg/dL (8.5-10.1) H 12/19/19 05:04 Magnesium 2.3 mg/dL (1.7-2.9) 12/18/19 05:15 Ferritin 202 ng/mL (8-252) 12/18/19 05:15 Total Bilirubin 0.30 mg/dL (0.2-1.0) 12/19/19 05:04 AST 12 Units/L (15-37) L 12/19/19 05:04 ALT 9 Units/L (12-78) L 12/19/19 05:04 Alkaline Phosphatase 64 Units/L (46-116) 12/19/19 05:04 Lactate Dehydrogenase 240 Units/L (81-234) H 12/15/19 00:04 C-Reactive Protein 50.90 mg/L (0-3.0) H 12/19/19 05:04 Total Protein 7.1 g/dL (6.4-8.2) 12/19/19 05:04 Albumin 2.3 g/dL (3.4-5.0) L 12/19/19 05:04 Globulin 4.8 g/dL (2.5-4.5) H 12/19/19 05:04 Albumin/Globulin Ratio 0.5 Ratio (1.1-2.1) L 12/19/19 05:04 Amylase 12 Units/L (25-115) L 12/14/19 18:21 Lipase 166 Units/L (73-393) 12/14/19 18:21 Specimen Type Catherized urine 12/14/19 18:55 Urine Color Yellow (YELLOW) 12/14/19 18:55 Urine Appearance Clear (CLEAR) 12/14/19 18:55 Urine pH 5.0 (5.0 - 8.0) 12/14/19 18:55 Ur Specific [place] 1.010 (1.000-1.030) 12/14/19 18:55 Urine Protein 2+ (NEGATIVE) 12/14/19 18:55 Urine Glucose (UA) Negative (NEGATIVE) 12/14/19 18:55 Urine Ketones Negative (NEGATIVE) 12/14/19 18:55 Urine Occult Blood 2+ (NEGATIVE) 12/14/19 18:55 Urine Nitrite Negative (NEGATIVE) 12/14/19 18:55 Urine Bilirubin Negative (NEGATIVE) 12/14/19 18:55 Urine Urobilinogen Normal (NORMAL) 12/14/19 18:55 Ur Leukocyte Esterase Negative (NEGATIVE) 12/14/19 18:55 Urine RBC 3-5 /HPF (0-3) A 12/14/19 18:55 Urine WBC 0-2 /HPF (0-5) 12/14/19 18:55 Ur Squamous Epith Cells Few /HPF (NEGATIVE) 12/14/19 18:55 Urine Bacteria Negative /HPF (NEGATIVE) 12/14/19 18:55 Ur Culture Indicated? No/not indicated 12/14/19 18:55 SARS-CoV-2 (PCR) Negative (NEGATIVE) 12/17/19 09:11 Miscellaneous Test Covid 19 12/14/19 21:53 - Plan (1) Sepsis Status: Acute Qualifiers: Sepsis type: sepsis due to unspecified organism Sepsis acute organ dysfunction status: with acute organ dysfunction Severe sepsis acute organ dysfunction type: acute renal failure Acute renal failure type: unspecified Severe sepsis shock status: without septic shock Qualified Code(s): A41.9 - Sepsis, unspecified organism; R65.20 - Severe sepsis without septic shock; N17.9 - Acute kidney failure, unspecified Plan: D5W AT 80 ML/HR, ZOSYN 2.25G IV TID, DIFLUCAN 100MG IV DAILY, HUMULIN R SLIDING SCALE, AND HER HOME MEDICATIONS WERE RESUMED (2) Dehydration Status: Acute Plan: D5W AT 80 ML/HR, CONTINUE TO MONITOR (3) Hypotension Status: Acute Qualifiers: Hypotension type: unspecified hypotension type Qualified Code(s): I95.9 - Hypotension, unspecified (4) Fever Status: Acute Qualifiers: Fever type: unspecified (5) COVID-19 Status: Suspected
[2019-12-19] MEDS: SNACK - Diabetic Appropriate PO SCH (23:07)
[2019-12-20] MEDS: NORCO 7.5/325 MG TAB PO SCH ×3 (05:57→21:21)
[2019-12-20] MEDS: D5W 1000 ML IV 1,000 ML IV SCH (05:57)
[2019-12-20] MEDS: ZOSYN VIAL 2.25 GRAMS 2.25 G in NS 100 ML IV + SPIKE MINIBAG* 100 ML IV SCH ×3 (05:58→21:53)
[2019-12-20] MEDS: HumuLIN R SC PRN ×2 (05:59→12:11)
[2019-12-20 06:17] LABS: BASOPHILS # (AUTO) 0.1 X10^3/uL (0.0-0.1); BASOPHILS % (AUTO) 0.5 % (0.2-1.0); EOSINOPHILS # (AUTO) 0.6 x10^3/uL (0.0-0.2); EOSINOPHILS % (AUTO) 5.3 % (0.9-2.9); LYMPHOCYTES # (AUTO) 1.8 X10^3/uL (1.3-2.9); LYMPHOCYTES % (AUTO) 14.7 % (21.0-51.0); MEAN CORPUSCULAR HEMOGLOBIN 26.8 pg (27.0-34.0); MEAN CORPUSCULAR HGB CONC 32.2 g/dL (33.0-35.0); MEAN CORPUSCULAR VOLUME 83.2 fL (80.0-100.0); MEAN PLATELET VOLUME 7.4 fL (7.4-11.0); MONOCYTES # (AUTO) 0.9 x10^3/uL (0.3-0.8); MONOCYTES % (AUTO) 7.5 % (0.0-13.0); NEUTROPHILS # (AUTO) 8.8 x10^3/uL (2.2-4.8); PLATELET COUNT 299 X10^3/uL (150.0-450.0); RED BLOOD COUNT 3.72 X10^6/uL (3.5-5.4); RED CELL DISTRIBUTION WIDTH 16.7 % (11.6-16.5); WHITE BLOOD COUNT 12.2 X10^3/uL (3.6-10.0)
[2019-12-20 06:23] LABS: ALANINE AMINOTRANSFERASE 10 Units/L (12-78); ALBUMIN 2.3 g/dL (3.4-5.0); ALKALINE PHOSPHATASE 60 Units/L (46-116); ASPARTATE AMINO TRANSFERASE 10 Units/L (15-37); BLOOD UREA NITROGEN 16 mg/dL (7-18); CALCIUM 9.1 mg/dL (8.5-10.1); CARBON DIOXIDE 26.4 mmol/L (21-32); CHLORIDE 100 mmol/L (98-107); COR CA(FOR HYPOALB) 10.5 mg/dL (8.5-10.1); COR NA(FOR HYPERGLY) 136 mmol/L (136-145); CREATININE 1.16 mg/dL (0.55-1.02); SODIUM 133 mmol/L (136-145); eGFR NON BLACK RACES 50 (>60)
[2019-12-20 07:14] LABS: BAND NEUTROPHILS % 4 % (0-10); PLATELET MORPHOLOGY COMMENT NORMAL (NORMAL)
[2019-12-20] MEDS: PEPCID TAB 20 MG PO SCH (09:12)
[2019-12-20] MEDS: COREG TAB 3.125 MG PO SCH ×2 (09:12→21:22)
[2019-12-20] MEDS: REQUIP PO SCH ×2 (09:12→21:22)
[2019-12-20] MEDS: LEVEMIR SC SCH (09:12)
[2019-12-20] MEDS: NexIUM PO SCH (09:13)
[2019-12-20] MEDS: SYNTHROID 125 mcg TAB PO SCH (09:13)
[2019-12-20] MEDS: ZANAFLEX PO SCH ×2 (09:14→21:20)
[2019-12-20] MEDS: MICRO K EXTEN CAP 10 MEQ PO SCH ×2 (09:19→21:22)
[2019-12-20] MEDS: DILAUDID INJ IVP PRN ×3 (09:27→23:14)
[2019-12-20] MEDS: NS 1000 ML 1,000 ML IV SCH ×2 (10:44→22:56)
[2019-12-20] MEDS: ABILIFY PO SCH (12:30)
[2019-12-20] MEDS: SNACK - Diabetic Appropriate PO SCH (20:50)
[2019-12-20] MEDS: DIFLUCAN 200 MG IV PREMIX* 200 MG/100 ML BAG IV SCH (21:22)
[2019-12-20] MEDS: CYMBALTA PO SCH (21:22)
[2019-12-20] MEDS: ZOCOR TAB 40 MG PO SCH (21:22)
--- NOTE | 2019-12-20 22:17 | PCM.PROG ---
Progress Note - Progress Note for Day of Date of Exam: 12/20/19 - Subjective Subjective: IS BEING TREATED FOR SEPSIS, DEHYDRATION, HYPOTENSION, FEVER. HE BLOOD PRESSURE IS STABLE. TODAY, SHE IS ALERT AND ORIENTED, LYING IN BED ON MORNING ROUNDS. SHE CONTINUES WITH WEAKNESS AND SHORTNESS, BUT REPORTS SLIGHT IMPROVEMENT IN SYMPTOMS. ON EXAMINATION, HEART IS REGULAR IN RATE AND RHYTHM. BILATERAL LUNGS ARE NOTED WITH DIMINISHED LUNG SOUNDS THROUGHOUT. ABDOMEN IS ROUND, SOFT, AND NON-TENDER. NORMAL BOWEL SOUNDS ARE NOTED IN ALL QUADRNANTS. HER VITALS THIS MORNING ARE: 98.0-75-18-97%NC-202/96. LABS WERE OBTAINED. ABNORMAL LAB VALUES INCLUDE THE FOLLOWING: WBC 12.2, HGB 10.0, HCT 31.0, SODIUM 133, POTASSIUM 5.2, CREATININE 1.16, GLUCOSE 213, CORRECTED CALCIUM 10.5, AST 10, ALT 10, CRP 27.70, ALBUMIN 2.3, GLOBULIN 4.7. BLOOD CULTURES REVEAL GROWTH OF KLEBSIELLA PNEUMONIAE. IT IS SENSITIVE TO THE ZOSYN THAT SHE IS ALREADY RECEIVING. SHE IS CURRENTLY RECEIVING D5W AT 80 ML/HR, ZOSYN 2.25G IV TID, DIFLUCAN 100MG IV DAILY, HUMULIN R SLIDING SCALE, AND HER HOME MEDICATIONS WERE RESUMED. DUE TO ELEVATED BLOOD GLUCOSE LEVELS, WE WILL CHANGE IV FLUIDS TO NORMAL SALINE AT 80 ML/HR. WE WILL RESUME HER COREG. OTHERWISE, WE PLAN TO FOLLOW UP WITH AM LABS AND CHEST XRAY AND CONTINUE TO MONITOR. - Past Medical Family Social History Past Med/Fam/Surg Hx: No changes since H&P Allergies: Allergies oxycodone Allergy (Verified 10/02/19 18:05) - Review of Systems ROS: No change since H&P - Vital Signs and I&O's Vital Signs: Temperature 98.2 F Pulse Rate [Left] 80 Pulse Rate 74 Respiratory Rate 20 Blood Pressure [Left Arm] 207/90 Blood Pressure 168/71 O2 Sat by Pulse Oximetry 97 Intake and Output: Intake & Output 12/18/19 12/19/19 12/20/19 12/21/19 11:59 11:59 11:59 11:59 Intake Total 3889 / 3889 1660 / 1660 1470 / 1470 1390 / 1390 Output Total 3950 / 3950 2100 / 2100 3150 / 3150 1900 / 1900 Balance -61 / -61 -440 / -440 -1680 / -1680 -510 / -510 - Physical Exam Oriented: Normal Eyes: Normal Ear: Normal Nose: Normal Throat: Normal Respiratory: Generalized, Diminished Cardiovascular: Normal. negative: S3, S4, Murmur : Normal Auscultation: Bowel Sounds: Normal Palpation: Normal Tenderness: Normal Skin: Normal Musculoskeletal: Normal Psychiatric: Normal Mood Description: Calm Affect: Normal Speech Pattern: Clear - Laboratory and Diagnostics Result Diagrams: 12/20/19 05:31 12/20/19 05:31 Labs: 12/14/19 18:30 Blood Blood Culture - Final Klebsiella Pneumoniae 12/14/19 18:21 Blood Blood Culture - Final Klebsiella Pneumoniae Laboratory WBC 12.2 X10^3/uL (3.6-10.0) H 12/20/19 05:31 RBC 3.72 X10^6/uL (3.5-5.4) 12/20/19 05:31 Hgb 10.0 g/dL (12.0-16.0) L 12/20/19 05:31 Hct 31.0 % (36.0-47.0) L 12/20/19 05:31 MCV 83.2 fL (80.0-100.0) 12/20/19 05:31 MCH 26.8 pg (27.0-34.0) L 12/20/19 05:31 MCHC 32.2 g/dL (33.0-35.0) L 12/20/19 05:31 RDW 16.7 % (11.6-16.5) H 12/20/19 05:31 Plt Count 299 X10^3/uL (150.0-450.0) 12/20/19 05:31 Plt Count Comment Adequate (ADEQUATE) 12/20/19 05:31 MPV 7.4 fL (7.4-11.0) 12/20/19 05:31 Neut % (Auto) 72.0 % (42.0-75.0) 12/20/19 05:31 Lymph % (Auto) 14.7 % (21.0-51.0) L 12/20/19 05:31 [place] % (Auto) 7.5 % (0.0-13.0) 12/20/19 05:31 Eos % (Auto) 5.3 % (0.9-2.9) H 12/20/19 05:31 Baso % (Auto) 0.5 % (0.2-1.0) 12/20/19 05:31 Neut # (Auto) 8.8 x10^3/uL (2.2-4.8) H 12/20/19 05:31 Lymph # (Auto) 1.8 X10^3/uL (1.3-2.9) 12/20/19 05:31 [place] # (Auto) 0.9 x10^3/uL (0.3-0.8) H 12/20/19 05:31 Eos # (Auto) 0.6 x10^3/uL (0.0-0.2) H 12/20/19 05:31 Baso # (Auto) 0.1 X10^3/uL (0.0-0.1) 12/20/19 05:31 Absolute Nucleated RBC 0.0 /100WBC 12/20/19 05:31 Total Counted 100 12/20/19 05:31 Neutrophils % (Manual) 66 % (39-76) 12/20/19 05:31 Band Neutrophils % 4 % (0-10) 12/20/19 05:31 Lymphocytes % (Manual) 18 % (13-43) 12/20/19 05:31 Monocytes % (Manual) 5 % (4-9) 12/20/19 05:31 Eosinophils % (Manual) 7 % (0-6) H 12/20/19 05:31 Basophils % (Manual) 1 % (0-1) 12/14/19 18:21 Plt Morphology Comment Normal (NORMAL) 12/20/19 05:31 RBC Morphology Normal (NORMAL) 12/20/19 05:31 Hypochromasia Slight A 12/16/19 04:56 Anisocytosis Slight A 12/16/19 04:56 Smear Path Review See note 12/16/19 09:18 PT 14.7 SECONDS (11.8-14.3) 12/15/19 00:04 INR Target Range - 12/15/19 00:04 INR 1.18 (0.8-1.3) 12/15/19 00:04 APTT 34.6 SECONDS (22.9-36.5) 12/15/19 00:04 PTT Comment - 12/15/19 00:04 Sample Site Lbra 12/16/19 05:12 ABG pH 7.280 (7.35-7.45) L 12/16/19 05:12 ABG pCO2 47.0 mmHg (35.0-45.0) H 12/16/19 05:12 ABG pO2 87.0 mmHg (80.0-100.0) 12/16/19 05:12 ABG HCO3 22.1 mmol/L (22-26) 12/16/19 05:12 ABG O2 Saturation 95.0 % (90-100) 12/16/19 05:12 ABG Base Excess -4.8 mmol/L (-2.0-2.0) L 12/16/19 05:12 Christos Test Na 12/16/19 05:12 A-a Gradient 54.0 mmHg 12/16/19 05:12 FiO2 28.0 12/16/19 05:12 Blood Gas Comments Mayi abg well-mtf 12/16/19 05:12 Sodium 133 mmol/L (136-145) L 12/20/19 05:31 Corrected Sodium 136 mmol/L (136-145) 12/20/19 05:31 Potassium 5.2 mmol/L (3.5-5.1) H 12/20/19 05:31 Chloride 100 mmol/L (98-107) 12/20/19 05:31 Carbon Dioxide 26.4 mmol/L (21-32) 12/20/19 05:31 BUN 16 mg/dL (7-18) 12/20/19 05:31 Creatinine 1.16 mg/dL (0.55-1.02) H 12/20/19 05:31 Est GFR (MDRD) Af Amer > 60 (>60) 12/20/19 05:31 Est GFR (MDRD) Non-Af 50 (>60) L 12/20/19 05:31 Glucose 213 mg/dL (65-99) H 12/20/19 05:31 POC Glucose (mg/dL) 139 mg/dL (65-99) H 12/20/19 20:40 Lactic Acid 3.2 mmol/L (0.4-2.0) H 12/14/19 18:21 Calcium 9.1 mg/dL (8.5-10.1) 12/20/19 05:31 Corrected Calcium 10.5 mg/dL (8.5-10.1) H 12/20/19 05:31 Magnesium 2.3 mg/dL (1.7-2.9) 12/18/19 05:15 Ferritin 202 ng/mL (8-252) 12/18/19 05:15 Total Bilirubin 0.30 mg/dL (0.2-1.0) 12/20/19 05:31 AST 10 Units/L (15-37) L 12/20/19 05:31 ALT 10 Units/L (12-78) L 12/20/19 05:31 Alkaline Phosphatase 60 Units/L (46-116) 12/20/19 05:31 Lactate Dehydrogenase 240 Units/L (81-234) H 12/15/19 00:04 C-Reactive Protein 27.70 mg/L (0-3.0) H 12/20/19 05:31 Total Protein 7.0 g/dL (6.4-8.2) 12/20/19 05:31 Albumin 2.3 g/dL (3.4-5.0) L 12/20/19 05:31 Globulin 4.7 g/dL (2.5-4.5) H 12/20/19 05:31 Albumin/Globulin Ratio 0.5 Ratio (1.1-2.1) L 12/20/19 05:31 Amylase 12 Units/L (25-115) L 12/14/19 18:21 Lipase 166 Units/L (73-393) 12/14/19 18:21 Specimen Type Catherized urine 12/14/19 18:55 Urine Color Yellow (YELLOW) 12/14/19 18:55 Urine Appearance Clear (CLEAR) 12/14/19 18:55 Urine pH 5.0 (5.0 - 8.0) 12/14/19 18:55 Ur Specific Gillespie 1.010 (1.000-1.030) 12/14/19 18:55 Urine Protein 2+ (NEGATIVE) 12/14/19 18:55 Urine Glucose (UA) Negative (NEGATIVE) 12/14/19 18:55 Urine Ketones Negative (NEGATIVE) 12/14/19 18:55 Urine Occult Blood 2+ (NEGATIVE) 12/14/19 18:55 Urine Nitrite Negative (NEGATIVE) 12/14/19 18:55 Urine Bilirubin Negative (NEGATIVE) 12/14/19 18:55 Urine Urobilinogen Normal (NORMAL) 12/14/19 18:55 Ur Leukocyte Esterase Negative (NEGATIVE) 12/14/19 18:55 Urine RBC 3-5 /HPF (0-3) A 12/14/19 18:55 Urine WBC 0-2 /HPF (0-5) 12/14/19 18:55 Ur Squamous Epith Cells Few /HPF (NEGATIVE) 12/14/19 18:55 Urine Bacteria Negative /HPF (NEGATIVE) 12/14/19 18:55 Ur Culture Indicated? No/not indicated 12/14/19 18:55 SARS-CoV-2 (PCR) Negative (NEGATIVE) 12/17/19 09:11 Miscellaneous Test Covid 19 12/14/19 21:53 - Plan (1) Sepsis Status: Acute Qualifiers: Sepsis type: sepsis due to unspecified organism Sepsis acute organ dysfunction status: with acute organ dysfunction Severe sepsis acute organ dysfunction type: acute renal failure Acute renal failure type: unspecified Severe sepsis shock status: without septic shock Qualified Code(s): A41.9 - Sepsis, unspecified organism; R65.20 - Severe sepsis without septic shock; N17.9 - Acute kidney failure, unspecified Plan: D5W AT 80 ML/HR, ZOSYN 2.25G IV TID, DIFLUCAN 100MG IV DAILY, HUMULIN R SLIDING SCALE, AND HER HOME MEDICATIONS WERE RESUMED (2) Dehydration Status: Acute Plan: NORMAL SALINE AT 80 ML/HR, ZOSYN IV, DIFLUCAN IV, CONTINUE TO MONITOR (3) Hypotension Status: Resolved Qualifiers: Hypotension type: unspecified hypotension type Qualified Code(s): I95.9 - Hypotension, unspecified (4) Fever Status: Acute Qualifiers: Fever type: unspecified
[2019-12-21] MEDS: ZOSYN VIAL 2.25 GRAMS 2.25 G in NS 100 ML IV + SPIKE MINIBAG* 100 ML IV SCH (05:34)
[2019-12-21] MEDS: NORCO 7.5/325 MG TAB PO SCH ×3 (06:15→21:20)
[2019-12-21 06:16] LABS: BASOPHILS # (AUTO) 0.1 X10^3/uL (0.0-0.1); BASOPHILS % (AUTO) 0.7 % (0.2-1.0); EOSINOPHILS # (AUTO) 0.7 x10^3/uL (0.0-0.2); EOSINOPHILS % (AUTO) 5.6 % (0.9-2.9); HEMATOCRIT 30.2 % (36.0-47.0); HEMOGLOBIN 9.7 g/dL (12.0-16.0); LYMPHOCYTES % (AUTO) 15.3 % (21.0-51.0); MEAN CORPUSCULAR HEMOGLOBIN 26.7 pg (27.0-34.0); MEAN CORPUSCULAR VOLUME 83.2 fL (80.0-100.0); MEAN PLATELET VOLUME 7.3 fL (7.4-11.0); MONOCYTES # (AUTO) 0.8 x10^3/uL (0.3-0.8); MONOCYTES % (AUTO) 6.5 % (0.0-13.0); NEUTROPHILS # (AUTO) 9.2 x10^3/uL (2.2-4.8); NEUTROPHILS % (AUTO) 71.9 % (42.0-75.0); PLATELET COUNT 313 X10^3/uL (150.0-450.0); RED BLOOD COUNT 3.63 X10^6/uL (3.5-5.4); RED CELL DISTRIBUTION WIDTH 16.7 % (11.6-16.5); WHITE BLOOD COUNT 12.8 X10^3/uL (3.6-10.0)
[2019-12-21 06:30] LABS: ALANINE AMINOTRANSFERASE 10 Units/L (12-78); ALBUMIN 2.2 g/dL (3.4-5.0); ALKALINE PHOSPHATASE 58 Units/L (46-116); ASPARTATE AMINO TRANSFERASE 13 Units/L (15-37); BLOOD UREA NITROGEN 17 mg/dL (7-18); CALCIUM 9.2 mg/dL (8.5-10.1); CARBON DIOXIDE 27.2 mmol/L (21-32); CHLORIDE 103 mmol/L (98-107); COR CA(FOR HYPOALB) 10.6 mg/dL (8.5-10.1); COR NA(FOR HYPERGLY) 137 mmol/L (136-145); CREATININE 1.12 mg/dL (0.55-1.02); SODIUM 136 mmol/L (136-145); TOTAL PROTEIN 6.6 g/dL (6.4-8.2); eGFR NON BLACK RACES 52 (>60)
[2019-12-21 07:09] LABS: BAND NEUTROPHILS % 4 % (0-10); PLATELET MORPHOLOGY COMMENT NORMAL (NORMAL)
[2019-12-21] MEDS: LEVEMIR SC SCH (08:22)
[2019-12-21] MEDS: ABILIFY PO SCH (08:22)
[2019-12-21] MEDS: REQUIP PO SCH ×2 (08:25→21:21)
[2019-12-21] MEDS: NexIUM PO SCH (08:25)
[2019-12-21] MEDS: SYNTHROID 125 mcg TAB PO SCH (08:25)
[2019-12-21] MEDS: ZANAFLEX PO SCH ×2 (08:25→21:21)
[2019-12-21] MEDS: PEPCID TAB 20 MG PO SCH (08:25)
[2019-12-21] MEDS: MICRO K EXTEN CAP 10 MEQ PO SCH ×2 (09:30→21:23)
[2019-12-21] MEDS: COREG TAB 3.125 MG PO SCH ×2 (09:30→21:20)
[2019-12-21] MEDS: DILAUDID INJ IVP PRN ×2 (09:35→20:17)
--- NOTE | 2019-12-21 10:45 | PCM.PROG ---
Progress Note - Progress Note for Day of Date of Exam: 12/21/19 - Subjective Subjective: IS BEING TREATED FOR SEPSIS, DEHYDRATION, HYPOTENSION, FEVER. HE BLOOD PRESSURE IS STABLE. TODAY, SHE IS ALERT AND ORIENTED, LYING IN BED ON MORNING ROUNDS. SHE CONTINUES WITH WEAKNESS AND SHORTNESS, BUT REPORTS SLIGHT IMPROVEMENT IN SYMPTOMS. ON EXAMINATION, HEART IS REGULAR IN RATE AND RHYTHM. BILATERAL LUNGS ARE NOTED WITH DIMINISHED LUNG SOUNDS THROUGHOUT. ABDOMEN IS ROUND, SOFT, AND NON-TENDER. NORMAL BOWEL SOUNDS ARE NOTED IN ALL QUADRNANTS. HER VITALS THIS MORNING ARE: 97.4-82-20-96%-187/89. LABS WERE OBTAINED. ABNORMAL LAB VALUES INCLUDE THE FOLLOWING: WBC 12.8, HGB 9.7, HCT 30.2, CREATININE 1.12, GLUCOSE 161, AST 13, ALT 10, ALBUMIN 2.2. BLOOD CULTURES REVEAL GROWTH OF KLEBSIELLA PNEUMONIAE. IT IS SENSITIVE TO THE ZOSYN THAT SHE IS ALREADY RECEIVING. SHE IS CURRENTLY RECEIVING NS AT 80 ML/HR, ZOSYN 2.25G IV TID, DIFLUCAN 100MG IV DAILY, HUMULIN R SLIDING SCALE, AND HER HOME MEDICATIONS WERE RESUMED. WE ARE GOING TO PLAN FOR DISCHARGE HOME ON ORAL ANTIBIOTICS T OMORROW. OTHERWISE, WE PLAN TO FOLLOW UP WITH AM LABS AND CHEST XRAY AND CONTINUE TO MONITOR. - Past Medical Family Social History Past Med/Fam/Surg Hx: No changes since H&P Allergies: Allergies oxycodone Allergy (Verified 10/02/19 18:05) - Review of Systems ROS: No change since H&P - Vital Signs and I&O's Vital Signs: Temperature 97.4 F Pulse Rate [Left] 82 Pulse Rate 74 Respiratory Rate 18 Blood Pressure [Left Arm] 187/89 Blood Pressure 168/71 O2 Sat by Pulse Oximetry 96 Intake and Output: Intake & Output 12/18/19 12/19/19 12/20/19 12/21/19 11:59 11:59 11:59 11:59 Intake Total 3889 / 3889 1660 / 1660 1470 / 1470 3344 / 3344 Output Total 3950 / 3950 2099 / 2100 3150 / 3150 3800 / 3800 Balance -61 / -61 -440 / -440 -1680 / -1680 -456 / -456 - Physical Exam Oriented: Normal Eyes: Normal Ear: Normal Nose: Normal Throat: Normal Respiratory: Generalized, Diminished Cardiovascular: Normal. negative: S3, S4, Murmur : Normal Auscultation: Bowel Sounds: Normal Palpation: Normal Tenderness: Normal Skin: Normal Musculoskeletal: Normal Psychiatric: Normal Mood Description: Calm Affect: Normal Speech Pattern: Clear - Laboratory and Diagnostics Result Diagrams: 12/21/19 05:25 12/21/19 05:25 Labs: 12/14/19 18:30 Blood Blood Culture - Final Klebsiella Pneumoniae 12/14/19 18:21 Blood Blood Culture - Final Klebsiella Pneumoniae Laboratory WBC 12.8 X10^3/uL (3.6-10.0) H 12/21/19 05:25 RBC 3.63 X10^6/uL (3.5-5.4) 12/21/19 05:25 Hgb 9.7 g/dL (12.0-16.0) L 12/21/19 05:25 Hct 30.2 % (36.0-47.0) L 12/21/19 05:25 MCV 83.2 fL (80.0-100.0) 12/21/19 05:25 MCH 26.7 pg (27.0-34.0) L 12/21/19 05:25 MCHC 32.0 g/dL (33.0-35.0) L 12/21/19 05:25 RDW 16.7 % (11.6-16.5) H 12/21/19 05:25 Plt Count 313 X10^3/uL (150.0-450.0) 12/21/19 05:25 Plt Count Comment Adequate (ADEQUATE) 12/21/19 05:25 MPV 7.3 fL (7.4-11.0) L 12/21/19 05:25 Neut % (Auto) 71.9 % (42.0-75.0) 12/21/19 05:25 Lymph % (Auto) 15.3 % (21.0-51.0) L 12/21/19 05:25 [place] % (Auto) 6.5 % (0.0-13.0) 12/21/19 05:25 Eos % (Auto) 5.6 % (0.9-2.9) H 12/21/19 05:25 Baso % (Auto) 0.7 % (0.2-1.0) 12/21/19 05:25 Neut # (Auto) 9.2 x10^3/uL (2.2-4.8) H 12/21/19 05:25 Lymph # (Auto) 2.0 X10^3/uL (1.3-2.9) 12/21/19 05:25 [place] # (Auto) 0.8 x10^3/uL (0.3-0.8) 12/21/19 05:25 Eos # (Auto) 0.7 x10^3/uL (0.0-0.2) H 12/21/19 05:25 Baso # (Auto) 0.1 X10^3/uL (0.0-0.1) 12/21/19 05:25 Absolute Nucleated RBC 0.0 /100WBC 12/21/19 05:25 Total Counted 100 12/21/19 05:25 Neutrophils % (Manual) 68 % (39-76) 12/21/19 05:25 Band Neutrophils % 4 % (0-10) 12/21/19 05:25 Lymphocytes % (Manual) 14 % (13-43) 12/21/19 05:25 Monocytes % (Manual) 4 % (4-9) 12/21/19 05:25 Eosinophils % (Manual) 8 % (0-6) H 12/21/19 05:25 Basophils % (Manual) 1 % (0-1) 12/14/19 18:21 Plt Morphology Comment Normal (NORMAL) 12/21/19 05:25 RBC Morphology Normal (NORMAL) 12/21/19 05:25 Hypochromasia Slight A 12/16/19 04:56 Anisocytosis Slight A 12/16/19 04:56 Smear Path Review See note 12/16/19 09:18 PT 14.7 SECONDS (11.8-14.3) 12/15/19 00:04 INR Target Range - 12/15/19 00:04 INR 1.18 (0.8-1.3) 12/15/19 00:04 APTT 34.6 SECONDS (22.9-36.5) 12/15/19 00:04 PTT Comment - 12/15/19 00:04 Sample Site Lbra 12/16/19 05:12 ABG pH 7.280 (7.35-7.45) L 12/16/19 05:12 ABG pCO2 47.0 mmHg (35.0-45.0) H 12/16/19 05:12 ABG pO2 87.0 mmHg (80.0-100.0) 12/16/19 05:12 ABG HCO3 22.1 mmol/L (22-26) 12/16/19 05:12 ABG O2 Saturation 95.0 % (90-100) 12/16/19 05:12 ABG Base Excess -4.8 mmol/L (-2.0-2.0) L 12/16/19 05:12 Christos Test Na 12/16/19 05:12 A-a Gradient 54.0 mmHg 12/16/19 05:12 FiO2 28.0 12/16/19 05:12 Blood Gas Comments Mayi abg well-mtf 12/16/19 05:12 Sodium 136 mmol/L (136-145) 12/21/19 05:25 Corrected Sodium 137 mmol/L (136-145) 12/21/19 05:25 Potassium 4.9 mmol/L (3.5-5.1) 12/21/19 05:25 Chloride 103 mmol/L (98-107) 12/21/19 05:25 Carbon Dioxide 27.2 mmol/L (21-32) 12/21/19 05:25 BUN 17 mg/dL (7-18) 12/21/19 05:25 Creatinine 1.12 mg/dL (0.55-1.02) H 12/21/19 05:25 Est GFR (MDRD) Af Amer > 60 (>60) 12/21/19 05:25 Est GFR (MDRD) Non-Af 52 (>60) L 12/21/19 05:25 Glucose 161 mg/dL (65-99) H 12/21/19 05:25 POC Glucose (mg/dL) 151 mg/dL (65-99) H 12/21/19 06:13 Lactic Acid 3.2 mmol/L (0.4-2.0) H 12/14/19 18:21 Calcium 9.2 mg/dL (8.5-10.1) 12/21/19 05:25 Corrected Calcium 10.6 mg/dL (8.5-10.1) H 12/21/19 05:25 Magnesium 2.3 mg/dL (1.7-2.9) 12/18/19 05:15 Ferritin 202 ng/mL (8-252) 12/18/19 05:15 Total Bilirubin 0.30 mg/dL (0.2-1.0) 12/21/19 05:25 AST 13 Units/L (15-37) L 12/21/19 05:25 ALT 10 Units/L (12-78) L 12/21/19 05:25 Alkaline Phosphatase 58 Units/L (46-116) 12/21/19 05:25 Lactate Dehydrogenase 240 Units/L (81-234) H 12/15/19 00:04 C-Reactive Protein 27.70 mg/L (0-3.0) H 12/20/19 05:31 Total Protein 6.6 g/dL (6.4-8.2) 12/21/19 05:25 Albumin 2.2 g/dL (3.4-5.0) L 12/21/19 05:25 Globulin 4.4 g/dL (2.5-4.5) 12/21/19 05:25 Albumin/Globulin Ratio 0.5 Ratio (1.1-2.1) L 12/21/19 05:25 Amylase 12 Units/L (25-115) L 12/14/19 18:21 Lipase 166 Units/L (73-393) 12/14/19 18:21 Specimen Type Catherized urine 12/14/19 18:55 Urine Color Yellow (YELLOW) 12/14/19 18:55 Urine Appearance Clear (CLEAR) 12/14/19 18:55 Urine pH 5.0 (5.0 - 8.0) 12/14/19 18:55 Ur Specific [place] 1.010 (1.000-1.030) 12/14/19 18:55 Urine Protein 2+ (NEGATIVE) 12/14/19 18:55 Urine Glucose (UA) Negative (NEGATIVE) 12/14/19 18:55 Urine Ketones Negative (NEGATIVE) 12/14/19 18:55 Urine Occult Blood 2+ (NEGATIVE) 12/14/19 18:55 Urine Nitrite Negative (NEGATIVE) 12/14/19 18:55 Urine Bilirubin Negative (NEGATIVE) 12/14/19 18:55 Urine Urobilinogen Normal (NORMAL) 12/14/19 18:55 Ur Leukocyte Esterase Negative (NEGATIVE) 12/14/19 18:55 Urine RBC 3-5 /HPF (0-3) A 12/14/19 18:55 Urine WBC 0-2 /HPF (0-5) 12/14/19 18:55 Ur Squamous Epith Cells Few /HPF (NEGATIVE) 12/14/19 18:55 Urine Bacteria Negative /HPF (NEGATIVE) 12/14/19 18:55 Ur Culture Indicated? No/not indicated 12/14/19 18:55 SARS-CoV-2 (PCR) Negative (NEGATIVE) 12/17/19 09:11 Miscellaneous Test Covid 19 12/14/19 21:53 - Plan (1) Sepsis Status: Acute Qualifiers: Sepsis type: sepsis due to unspecified organism Sepsis acute organ dysfunction status: with acute organ dysfunction Severe sepsis acute organ dysfunction type: acute renal failure Acute renal failure type: unspecified Severe sepsis shock status: without septic shock Qualified Code(s): A41.9 - Sepsis, unspecified organism; R65.20 - Severe sepsis without septic shock; N17.9 - Acute kidney failure, unspecified Plan: NS @ 80 ML/HR, ZOSYN 2.25G IV TID, DIFLUCAN 100MG IV DAILY, HUMULIN R SLIDING SCALE, AND HER HOME MEDICATIONS WERE RESUMED (2) Dehydration Status: Acute Plan: NORMAL SALINE AT 80 ML/HR, ZOSYN IV, DIFLUCAN IV, CONTINUE TO MONITOR (3) Hypotension Status: Resolved Qualifiers: Hypotension type: unspecified hypotension type Qualified Code(s): I95.9 - Hypotension, unspecified (4) Fever Status: Acute Qualifiers: Fever type: unspecified
[2019-12-21] MEDS: HumuLIN R SC PRN (11:34)
[2019-12-21] MEDS: NS 1000 ML 1,000 ML IV SCH (12:56)
[2019-12-21] MEDS: ZOSYN VIAL 2.25 GRAMS 2.25 G in NS 100 ML IV 100 ML IV SCH ×2 (14:05→21:22)
[2019-12-21] MEDS: ZOFRAN INJ 4 MG VIAL IVP PRN (18:25)
[2019-12-21] MEDS: SNACK - Diabetic Appropriate PO SCH (20:15)
[2019-12-21] MEDS: DIFLUCAN 200 MG IV PREMIX* 200 MG/100 ML BAG IV SCH (20:16)
[2019-12-21] MEDS ORDERED: NS 100 ML IV 100 ML IV ONE (20:56)
[2019-12-21] MEDS ORDERED: CYMBALTA PO SCH (21:00)
[2019-12-21] MEDS: ZOCOR TAB 40 MG PO SCH (21:20)
[2019-12-22] MEDS: NS 1000 ML 1,000 ML IV SCH ×2 (01:28→02:00)
[2019-12-22] MEDS: ZOSYN VIAL 2.25 GRAMS 2.25 G in NS 100 ML IV 100 ML IV SCH (05:55)
[2019-12-22] MEDS: NORCO 7.5/325 MG TAB PO SCH (05:55)
[2019-12-22 07:32] LABS: BASOPHILS # (AUTO) 0.1 X10^3/uL (0.0-0.1); BASOPHILS % (AUTO) 0.8 % (0.2-1.0); EOSINOPHILS # (AUTO) 0.7 x10^3/uL (0.0-0.2); EOSINOPHILS % (AUTO) 7.2 % (0.9-2.9); HEMATOCRIT 29.5 % (36.0-47.0); HEMOGLOBIN 9.6 g/dL (12.0-16.0); LYMPHOCYTES # (AUTO) 1.9 X10^3/uL (1.3-2.9); LYMPHOCYTES % (AUTO) 17.9 % (21.0-51.0); MEAN CORPUSCULAR HEMOGLOBIN 27.4 pg (27.0-34.0); MEAN CORPUSCULAR HGB CONC 32.5 g/dL (33.0-35.0); MEAN CORPUSCULAR VOLUME 84.3 fL (80.0-100.0); MEAN PLATELET VOLUME 7.7 fL (7.4-11.0); MONOCYTES # (AUTO) 0.7 x10^3/uL (0.3-0.8); NEUTROPHILS # (AUTO) 6.9 x10^3/uL (2.2-4.8); NEUTROPHILS % (AUTO) 67.1 % (42.0-75.0); PLATELET COUNT 308 X10^3/uL (150.0-450.0); RED BLOOD COUNT 3.51 X10^6/uL (3.5-5.4); RED CELL DISTRIBUTION WIDTH 16.8 % (11.6-16.5); WHITE BLOOD COUNT 10.3 X10^3/uL (3.6-10.0)
[2019-12-22 07:41] LABS: ALBUMIN 2.3 g/dL (3.4-5.0); CALCIUM 8.8 mg/dL (8.5-10.1); CARBON DIOXIDE 27.9 mmol/L (21-32); COR CA(FOR HYPOALB) 10.2 mg/dL (8.5-10.1); CREATININE 1.21 mg/dL (0.55-1.02); TOTAL PROTEIN 6.6 g/dL (6.4-8.2)
[2019-12-22] MEDS: ABILIFY PO SCH (08:34)
[2019-12-22] MEDS: COREG TAB 3.125 MG PO SCH (08:36)
[2019-12-22] MEDS: ZANAFLEX PO SCH (08:36)
[2019-12-22] MEDS: SYNTHROID 125 mcg TAB PO SCH (08:36)
[2019-12-22] MEDS: MICRO K EXTEN CAP 10 MEQ PO SCH (08:36)
[2019-12-22] MEDS: PEPCID TAB 20 MG PO SCH (08:36)
[2019-12-22] MEDS: NexIUM PO SCH (08:36)
[2019-12-22] MEDS: REQUIP PO SCH (08:36)
[2019-12-22] MEDS: LEVEMIR SC SCH (08:38)
[2019-12-22 08:50] LABS: BAND NEUTROPHILS % 4 % (0-10); PLATELET MORPHOLOGY COMMENT NORMAL (NORMAL)
[2019-12-22 09:49] VITALS: BP 145/83
== END 2019-12-22 11:29 | disposition home health service (06) | DRG 872 ==
LOC: ER 17:40 → ICU 21:58 → MED/SURG 12-17 19:10
PROVIDERS: ADMIT Internal Medicine; ATTEND Internal Medicine
DX: R65.20 Severe sepsis without septic shock; B96.1 Klebsiella pneumoniae [K. pneumoniae] as the cause of diseases classified elsewhere; A41.89 Other specified sepsis; Z11.59 Encounter for screening for other viral diseases; I95.89 Other hypotension; N17.8 Other acute kidney failure; E86.0 Dehydration; R26.89 Other abnormalities of gait and mobility; Z74.01 Bed confinement status; E11.65 Type 2 diabetes mellitus with hyperglycemia; L89.152 Pressure ulcer of sacral region, stage 2
CPT/HCPCS: 36415; 36591; 36600; 51702; 71010; 71045; 80053; 81001; 82150; 82728; 82803; 82947; 83605; 83615; 83690; 83735; 85025; 85060; 85610; 85730; 86140; 87040; 87077; 87186; 87635; 93005; 93306; 96365; 96367; 96374; 97110; 97162; 97167; 97530; 97535; 99285; A4222; J0400; J1170; J1450; J1642; J1815; J2405; J2543; J3475; J3490; J7030; J7050; J7060

== ENCOUNTER 2020-02-29 04:08 | Inpatient (IN) ==
[2020-02-29] MEDS ORDERED: LASIX IVP ONE ×2 (04:23→04:25)
[2020-02-29] MEDS ORDERED: LASIX IVP STA (04:45)
[2020-02-29 04:50] LABS: BILIRUBIN,URINE NEGATIVE (NEGATIVE); BLOOD/HEMOGLOBIN,URINE 3+ (NEGATIVE); GLUCOSE, URINE 4+ (NEGATIVE); KETONES,URINE NEGATIVE (NEGATIVE); LEUKOCYTE ESTERASE ,URINE NEGATIVE (NEGATIVE); NITRITES,URINE NEGATIVE (NEGATIVE); PROTEIN,URINE 4+ (NEGATIVE); UROBILINOGEN,URINE NORMAL (NORMAL)
[2020-02-29 04:55] LABS: APPEARANCE,URINE CLEAR (CLEAR); BACTERIA,URINE TRACE /HPF (NEGATIVE); COLOR,URINE PALE YELLOW (YELLOW); RBC,URINE 0-2 /HPF (0-3); SQUAMOUS EPITHELIAL CELL,UR RARE /HPF (NEGATIVE)
[2020-02-29 04:56] LABS: AMORPHOUS SEDIMENT,UR 1+ /HPF (NEGATIVE)
--- NOTE | 2020-02-29 04:59 | DR.SOBA ---
HPI Time Seen Time Seen by Provider: 02/29/20 04:39 Primary Care Physician Primary Care Physician: MALU HPI Comment HPI Comment: Worsening sob which woke her and she returned; she left yesterday after refusing Lasix saying she could take it at home; she's had sxs x 3-4 days with nonproductive cough as well as wheezing and fatigue. Complaints Chief Complaint:: PT C/O SOB THAT GOT WORSE SINCE SHE LEFT THE ER EARLIER COVID-19 Coronavirus risk:travel/contact w/high risk person: Yes Has patient experienced Coronavirus symptoms: No Coronavirus symptoms experienced: Coughing and Shortness of Breath Source History Provided: Patient Mode of Arrival Mode of Arrival: Ambulatory Timing Onset of Chief Complaint: 02/29/20 PMH PMH Past Medical History: Yes Past Medical History: CHF, Coronary Artery Disease, Depression, GERD and Hypertension Past Surgical History: Yes Surgical History: Abdominal Surgery Family History History of Family Medical Conditions: Yes Family Medical History: Diabetes Mellitus and [place] Social History Alcohol Use: None Do you use any recreational Drugs:: No Lives With: Family Lives Where: Home Travel Risk Coronavirus risk:travel/contact w/high risk person: Yes Has patient experienced Coronavirus symptoms: No Coronavirus symptoms experienced: Coughing and Shortness of Breath Infectious screening In the last 2 months have you had wt loss of >10#?: NO Have you had fever, night sweats or hemotysis?: No Have you traveled outside the country in the last 6 months?: No Isolation: Standard ROS Review of Systems Constitutional: No Symptoms Reported Eyes: No Symptoms Reported ENTM: No Symptoms Reported Cardiovascular: No Symptoms Reported Gastrointestinal/Abdominal: No Symptoms Reported Genitourinary: No Symptoms Reported PE Vital Signs Vitals: Temperature 98.8 F Pulse Rate 100 Respiratory Rate 36 Blood Pressure [Left Arm] 154/70 Blood Pressure 209/92 O2 Sat by Pulse Oximetry 100 General Limitations: Physical Limitation (bipap in place, hard to understand) General Appearance: Alert, Anxious and In Distress (respiratory) Head Head Exam: Normal Inspection, Atraumatic and Normocephalic Eyes Eye exam: Normal Appearance, PERRL and EOMI Neck Neck Exam: Normal Inspection, Full ROM and Trachea Midline Chest Chest Inspection: Symmetric Chest Wall Rise Respiratory Respiratory Exam: Accessory Muscle Use and Prolonged Expiratory Phase Respiratory Exam: Bilateral: Decreased Breath Sounds Cardiovascular Cardiovascular Exam: Normal Rhythm and Tachycardia Abdominal Exam Abdominal Exam: Normal Bowel Sounds, Soft and Other (obese) Extremities Extremities Exam: Normal Inspection and Full ROM Neurologic Neurological Exam: Alert, Oriented X3 and CN II-XII Intact Psychiatric Psychiatric Exam: Anxious COURSE Reevaluation 1st: Improved Consultation Call Returned: 07:20 (Dr Carey accepts pt) [facility] Labs Reviewed Laboratory Results Reviewed?: Yes Laboratory: Creatine Kinase 94 Units/L (26-192) 02/29/20 04:23 CK-MB (CK-2) 3.5 ng/mL (0-4.0) 02/29/20 04:23 CK/CKMB % Calc 3.7 % (<4) 02/29/20 04:23 Troponin I < 0.02 ng/mL (0-1.5) 02/29/20 04:23 Specimen Type Catherized urine 02/29/20 04:42 Urine Color Pale yellow (YELLOW) 02/29/20 04:42 Urine Appearance Clear (CLEAR) 02/29/20 04:42 Urine pH 5.0 (5.0 - 8.0) 02/29/20 04:42 Ur Specific [place] 1.015 (1.000-1.030) 02/29/20 04:42 Urine Protein 4+ (NEGATIVE) 02/29/20 04:42 Urine Glucose (UA) 4+ (NEGATIVE) 02/29/20 04:42 Urine Ketones Negative (NEGATIVE) 02/29/20 04:42 Urine Occult Blood 3+ (NEGATIVE) 02/29/20 04:42 Urine Nitrite Negative (NEGATIVE) 02/29/20 04:42 Urine Bilirubin Negative (NEGATIVE) 02/29/20 04:42 Urine Urobilinogen Normal (NORMAL) 02/29/20 04:42 Ur Leukocyte Esterase Negative (NEGATIVE) 02/29/20 04:42 Urine RBC 0-2 /HPF (0-3) 02/29/20 04:42 Urine WBC 0-2 /HPF (0-5) 02/29/20 04:42 Ur Squamous Epith Cells Rare /HPF (NEGATIVE) 02/29/20 04:42 Amorphous Sediment 1+ /HPF (NEGATIVE) 02/29/20 04:42 Urine Bacteria Trace /HPF (NEGATIVE) 02/29/20 04:42 Ur Culture Indicated? No/not indicated 02/29/20 04:42 Other Results Comments: cardiac repeat negative XRAY XRAY Interpreted by: Radiologist X-ray Results: Cxr 02/27: Cardiomegaly and pulmonary vascular congestion.Possible streaky left retrocardiac opacity. Findings are not significantly changed from prior. Osseous structures demonstrate no acute abnormality. IMPRESSION: 1. No significant change from prior. Opioid Opioid Risk Tool Age (Jose Luis box if 16-45): No History of Preadolescent Sexual Abuse: No Total: 0 Total Score Risk Category: Low Risk Copyright: Tony QUINONES predicting aberrant behaviors Diagnosis Discharge Problem: CHF (congestive heart failure) Qualifiers: Heart failure type: unspecified Heart failure chronicity: acute on chronic Qualified Code(s): I50.9 - Heart failure, unspecified Respiratory failure, acute Qualifiers: Respiratory failure complication: hypoxia Qualified Code(s): J96.01 - Acute respiratory failure with hypoxia Instructions Forms: Precautions for COVID19 Patient Portal Social Distancing
[2020-02-29 05:18] LABS: CKMB % 3.7 % (<4); CREATINE KINASE 94 Units/L (26-192); CREATINE KINASE MB 3.5 ng/mL (0-4.0); TROPONIN I < 0.02 ng/mL (0-1.5)
[2020-02-29] MEDS ORDERED: TORADOL 60 MG VIAL IM ONE (09:30)
[2020-02-29 10:30] VITALS: BMI 64.0
[2020-02-29] MEDS ORDERED: ARIPIPRAZOLE 30 MG PO SCH (10:30)
[2020-02-29 11:13] LABS: ABG BASE EXCESS -1.5 mmol/L (-2.0-2.0); ABG HCO3 26.5 mmol/L (22-26)
[2020-02-29 11:14] LABS: FRACTIONATED INSPIRED OXYGEN 45
[2020-02-29 11:15] LABS: ABG ALLEN TEST POSTIVE
[2020-02-29] MEDS: HumuLIN R SUBCUT PRN (13:07)
[2020-02-29] MEDS: NYSTATIN POWDER TOP SCH ×2 (13:19→21:37)
--- NOTE | 2020-02-29 13:27 | DR.SOBA ---
HPI Time Seen Time Seen by Provider: 02/29/20 04:39 Primary Care Physician Primary Care Physician: TORIBIO Complaints Chief Complaint:: PT C/O SOB THAT GOT WORSE SINCE SHE LEFT THE ER EARLIER COVID-19 Coronavirus risk:travel/contact w/high risk person: Yes Has patient experienced Coronavirus symptoms: No Coronavirus symptoms experienced: Coughing and Shortness of Breath Source History Provided: Patient Mode of Arrival Mode of Arrival: Ambulatory Timing Onset of Chief Complaint: 02/29/20 PMH PMH Past Medical History: Yes Past Medical History: CHF, Coronary Artery Disease, Depression, GERD and Hypertension Past Surgical History: Yes Surgical History: Abdominal Surgery Family History History of Family Medical Conditions: Yes Family Medical History: Diabetes Mellitus and [place] Social History Alcohol Use: None Do you use any recreational Drugs:: No Lives With: Family Lives Where: Home Travel Risk Coronavirus risk:travel/contact w/high risk person: Yes Has patient experienced Coronavirus symptoms: No Coronavirus symptoms experienced: Coughing and Shortness of Breath Infectious screening In the last 2 months have you had wt loss of >10#?: NO Have you had fever, night sweats or hemotysis?: No Have you traveled outside the country in the last 6 months?: No Isolation: Standard PE Vital Signs Vitals: Temperature 98.8 F Pulse Rate 100 Respiratory Rate 36 Blood Pressure [Left Arm] 154/70 Blood Pressure 209/92 O2 Sat by Pulse Oximetry 100 ROR Labs Reviewed Laboratory: Creatine Kinase 94 Units/L (26-192) 02/29/20 04:23 CK-MB (CK-2) 3.5 ng/mL (0-4.0) 02/29/20 04:23 CK/CKMB % Calc 3.7 % (<4) 02/29/20 04:23 Troponin I < 0.02 ng/mL (0-1.5) 02/29/20 04:23 Specimen Type Catherized urine 02/29/20 04:42 Urine Color Pale yellow (YELLOW) 02/29/20 04:42 Urine Appearance Clear (CLEAR) 02/29/20 04:42 Urine pH 5.0 (5.0 - 8.0) 02/29/20 04:42 Ur Specific [place] 1.015 (1.000-1.030) 02/29/20 04:42 Urine Protein 4+ (NEGATIVE) 02/29/20 04:42 Urine Glucose (UA) 4+ (NEGATIVE) 02/29/20 04:42 Urine Ketones Negative (NEGATIVE) 02/29/20 04:42 Urine Occult Blood 3+ (NEGATIVE) 02/29/20 04:42 Urine Nitrite Negative (NEGATIVE) 02/29/20 04:42 Urine Bilirubin Negative (NEGATIVE) 02/29/20 04:42 Urine Urobilinogen Normal (NORMAL) 02/29/20 04:42 Ur Leukocyte Esterase Negative (NEGATIVE) 02/29/20 04:42 Urine RBC 0-2 /HPF (0-3) 02/29/20 04:42 Urine WBC 0-2 /HPF (0-5) 02/29/20 04:42 Ur Squamous Epith Cells Rare /HPF (NEGATIVE) 02/29/20 04:42 Amorphous Sediment 1+ /HPF (NEGATIVE) 02/29/20 04:42 Urine Bacteria Trace /HPF (NEGATIVE) 02/29/20 04:42 Ur Culture Indicated? No/not indicated 02/29/20 04:42 Opioid Opioid Risk Tool Age (Jose Luis box if 16-45): No History of Preadolescent Sexual Abuse: No Total: 0 Total Score Risk Category: Low Risk Copyright: Tony QUINONES predicting aberrant behaviors Diagnosis Discharge Problem: CHF (congestive heart failure) Qualifiers: Heart failure type: unspecified Heart failure chronicity: acute on chronic Qualified Code(s): I50.9 - Heart failure, unspecified Respiratory failure, acute Qualifiers: Respiratory failure complication: hypoxia Qualified Code(s): J96.01 - Acute respiratory failure with hypoxia Instructions Forms: Patient Portal Social Distancing
[2020-02-29] MEDS: ZAROXOLYN PO SCH (14:15)
[2020-02-29] MEDS: COREG TAB 3.125 MG PO SCH ×2 (14:15→21:36)
[2020-02-29] MEDS: NORCO 7.5/325 MG TAB PO SCH ×3 (14:26→21:41)
[2020-02-29] MEDS: NEURONTIN CAP 400 MG PO SCH ×2 (14:28→21:38)
[2020-02-29] MEDS: XANAX PO SCH ×2 (14:29→21:37)
[2020-02-29] MEDS ORDERED: SNACK - Diabetic Appropriate PO SCH (20:00)
[2020-02-29] MEDS ORDERED: CYMBALTA PO ONE (20:01)
[2020-02-29] MEDS ORDERED: ZOCOR TAB 40 MG PO ONE (20:02)
[2020-02-29] MEDS ORDERED: REQUIP PO ONE (20:02)
[2020-02-29] MEDS ORDERED: TRICOR TAB 160 MG ONE (20:02)
[2020-02-29] MEDS ORDERED: ZANAFLEX ONE (20:02)
[2020-02-29] MEDS: SNACK - Diabetic Appropriate PO SCH (21:35)
[2020-02-29] MEDS: CYMBALTA PO SCH (21:36)
[2020-02-29] MEDS: LEVEMIR SC SCH (21:38)
[2020-02-29] MEDS: REQUIP PO SCH (21:40)
[2020-02-29] MEDS: ZOCOR TAB 40 MG PO SCH (21:40)
[2020-02-29] MEDS: TRICOR TAB 160 MG PO SCH (21:41)
[2020-02-29] MEDS: ZANAFLEX PO SCH (21:41)
[2020-03-01] MEDS: NEURONTIN CAP 400 MG PO SCH ×3 (05:33→21:11)
[2020-03-01] MEDS: XANAX PO SCH ×3 (05:34→21:11)
[2020-03-01] MEDS: NORCO 7.5/325 MG TAB PO SCH ×3 (05:34→21:11)
--- NOTE | 2020-03-01 06:40 | RAD ---
HISTORYFollow-up edemaSTUDYPortable AP [id number] cardiomegaly. Mild nonspecific interstitial prominence is n oted in the lungs without evidence for segmental or lobar consolidation. Left subclavian injection po rt again noted. No complicating pneumothorax or developing pleural effusion is identified.IMPRESSIONN o change since prior examination.Electronically signed by: CHRISTEN JARA (Mar 01, 2020 06:39:20)
[2020-03-01 07:13] LABS: ALANINE AMINOTRANSFERASE 18 Units/L (12-78); ALBUMIN 2.7 g/dL (3.4-5.0); ALKALINE PHOSPHATASE 60 Units/L (46-116); ASPARTATE AMINO TRANSFERASE 26 Units/L (15-37); BLOOD UREA NITROGEN 59 mg/dL (7-18); CALCIUM 8.8 mg/dL (8.5-10.1); CARBON DIOXIDE 28.3 mmol/L (21-32); CHLORIDE 106 mmol/L (98-107); COR CA(FOR HYPOALB) 9.8 mg/dL (8.5-10.1); CREATININE 2.07 mg/dL (0.55-1.02); SODIUM 141 mmol/L (136-145); TOTAL PROTEIN 6.8 g/dL (6.4-8.2); eGFR NON BLACK RACES 26 (>60)
[2020-03-01 07:24] LABS: BASOPHILS % (AUTO) 0.4 % (0.2-1.0); EOSINOPHILS # (AUTO) 0.1 x10^3/uL (0.0-0.2); EOSINOPHILS % (AUTO) 0.8 % (0.9-2.9); HEMATOCRIT 29.5 % (36.0-47.0); HEMOGLOBIN 9.2 g/dL (12.0-16.0); LYMPHOCYTES # (AUTO) 1.8 X10^3/uL (1.3-2.9); LYMPHOCYTES % (AUTO) 22.6 % (21.0-51.0); MEAN CORPUSCULAR HEMOGLOBIN 27.2 pg (27.0-34.0); MEAN CORPUSCULAR HGB CONC 31.3 g/dL (33.0-35.0); MEAN CORPUSCULAR VOLUME 87.1 fL (80.0-100.0); MEAN PLATELET VOLUME 7.6 fL (7.4-11.0); MONOCYTES # (AUTO) 0.6 x10^3/uL (0.3-0.8); NEUTROPHILS # (AUTO) 5.4 x10^3/uL (2.2-4.8); NEUTROPHILS % (AUTO) 68.2 % (42.0-75.0); PLATELET COUNT 320 X10^3/uL (150.0-450.0); RED BLOOD COUNT 3.39 X10^6/uL (3.5-5.4); RED CELL DISTRIBUTION WIDTH 16.2 % (11.6-16.5)
[2020-03-01] MEDS: ABILIFY PO SCH (09:02)
[2020-03-01] MEDS: PROTONIX TAB 40 MG PO SCH (09:03)
[2020-03-01] MEDS: COREG TAB 3.125 MG PO SCH ×2 (09:03→21:12)
[2020-03-01] MEDS: LASIX IVP SCH (09:03)
[2020-03-01] MEDS: NYSTATIN POWDER TOP SCH ×2 (09:03→21:13)
[2020-03-01] MEDS: REQUIP PO SCH ×2 (09:03→21:11)
[2020-03-01] MEDS: SYNTHROID 125 mcg TAB PO SCH (09:04)
[2020-03-01] MEDS: ZAROXOLYN PO SCH (09:04)
[2020-03-01] MEDS: ZANAFLEX PO SCH ×2 (09:04→21:13)
[2020-03-01] MEDS ORDERED: KAYEXALATE SUSP PO ONE (11:00)
[2020-03-01] MEDS: HumuLIN R SUBCUT PRN (11:53)
[2020-03-01] MEDS ORDERED: SOLU-Medrol 125 MG VIAL IVP ONE (12:06)
--- NOTE | 2020-03-01 12:18 | DR.H&P ---
H&P History & Physical for Day of: H&P Date: 03/01/20 Chief Complaint Chief Complaint: worsening SOB and weight gain Allergies Allergies Allergy/AdvReac Type Severity Reaction Status Date / Time oxycodone Allergy Verified 01/15/20 22:23 History of Present Illness History of Present Illness: Ms. Palomares is a 64y/o female with a PMH of chronic respiratory failure requiring 2L continuous oxygen at home, morbid obesity, CHF and chronic pain and anxiety presented with worsening SOB and leg swelling. Patient states for the past 4 weeks her breathing has been worsening. She saw her PCP and was recently given Metolazone for 3 days but because her breathing kept getting worse, she decided to come to ED and didn't start taking it yet. She states she has gained a lot of weight. She was taking Lasix. ER work-up - ABG concerning for hypercapnia and hypoxia so she was put on BiPAP. She did receive 60 mg IV + 40 mg IV Lasix Repeat AB.26/59/114/26 COVID-19 neg Patient is currently on 3L oxygen via [place]. She states she feels a lot better than yesterday. She has slight cough. Denies fever or chills. Labs today: Hgb 9.2 K:5.5 BUN/Cr: 59/2.07 CXR: moderate cardiomegaly, pulmonary edema improved since admission ECHO in November 2019: EF 53%, mild pulmonary HTN Plan: continue IV Lasix 40 mg daily, hold metolazone for now, patient did receive a dose yesterday and this morning. Daily weights, strict I/Os. Will give one dose of solumedrol due to wheezing on exam. Add duonebs. Resume home medications. PT/OT as tolerated. Will give one dose of kayexalate. Monitor AM labs. Past Medical History Past Medical History: CHF, Coronary Artery Disease, Depression, GERD and Hypertension Additional Medical History: MORBID OBESITY; VITAMIN B12 DEFICIENCY; LUMBOSACAL RADICULOPATHY Past Surgical History Surgical History: Abdominal Surgery Family History Family Medical History: Diabetes Mellitus and PA Social History Does patient currently use any type of tobacco product: No Have you used tobacco products in the last 12 months: No Type of Tobacco Use: None Does any household member use tobacco: No Alcohol Use: None Medications Home Medications: oxycodone Allergy (Verified 01/15/20 22:23) CONTINUE taking the following medications metolazone 5 mg PO DAILY 02/29/20 [History] Labs Result Diagrams: 03/01/20 05:25 03/01/20 05:25 Labs: Laboratory WBC 8.0 X10^3/uL (3.6-10.0) 03/01/20 05:25 RBC 3.39 X10^6/uL (3.5-5.4) L 03/01/20 05:25 Hgb 9.2 g/dL (12.0-16.0) L 03/01/20 05:25 Hct 29.5 % (36.0-47.0) L 03/01/20 05:25 MCV 87.1 fL (80.0-100.0) 03/01/20 05:25 MCH 27.2 pg (27.0-34.0) 03/01/20 05:25 MCHC 31.3 g/dL (33.0-35.0) L 03/01/20 05:25 RDW 16.2 % (11.6-16.5) 03/01/20 05:25 Plt Count 320 X10^3/uL (150.0-450.0) 03/01/20 05:25 MPV 7.6 fL (7.4-11.0) 03/01/20 05:25 Neut % (Auto) 68.2 % (42.0-75.0) 03/01/20 05:25 Lymph % (Auto) 22.6 % (21.0-51.0) 03/01/20 05:25 [place] % (Auto) 8.0 % (0.0-13.0) 03/01/20 05:25 Eos % (Auto) 0.8 % (0.9-2.9) L 03/01/20 05:25 Baso % (Auto) 0.4 % (0.2-1.0) 03/01/20 05:25 Neut # (Auto) 5.4 x10^3/uL (2.2-4.8) H 03/01/20 05:25 Lymph # (Auto) 1.8 X10^3/uL (1.3-2.9) 03/01/20 05:25 [place] # (Auto) 0.6 x10^3/uL (0.3-0.8) 03/01/20 05:25 Eos # (Auto) 0.1 x10^3/uL (0.0-0.2) 03/01/20 05:25 Baso # (Auto) 0.0 X10^3/uL (0.0-0.1) 03/01/20 05:25 Absolute Nucleated RBC 0.1 /100WBC 03/01/20 05:25 Sample Site Rrad 02/29/20 11:00 ABG pH 7.260 (7.35-7.45) L 02/29/20 11:00 ABG pCO2 59.0 mmHg (35.0-45.0) H* 02/29/20 11:00 ABG pO2 114.0 mmHg (80.0-100.0) H 02/29/20 11:00 ABG HCO3 26.5 mmol/L (22-26) H 02/29/20 11:00 ABG O2 Saturation 98.0 % (90-100) 02/29/20 11:00 ABG Base Excess -1.5 mmol/L (-2.0-2.0) 02/29/20 11:00 Christos Test Postive 02/29/20 11:00 A-a Gradient Not Reportable 02/29/20 11:00 FiO2 45 02/29/20 11:00 Blood Gas Comments Hard stick sd 02/29/20 11:00 Sodium 141 mmol/L (136-145) 03/01/20 05:25 Corrected Sodium TNP 03/01/20 05:25 Potassium 5.5 mmol/L (3.5-5.1) H 03/01/20 05:25 Chloride 106 mmol/L (98-107) 03/01/20 05:25 Carbon Dioxide 28.3 mmol/L (21-32) 03/01/20 05:25 BUN 59 mg/dL (7-18) H 03/01/20 05:25 Creatinine 2.07 mg/dL (0.55-1.02) H 03/01/20 05:25 Est GFR (MDRD) Af Amer 31 (>60) L 03/01/20 05:25 Est GFR (MDRD) Non-Af 26 (>60) L 03/01/20 05:25 Glucose 108 mg/dL (65-99) H 03/01/20 05:25 POC Glucose (mg/dL) 165 mg/dL (65-99) H 03/01/20 11:23 Calcium 8.8 mg/dL (8.5-10.1) 03/01/20 05:25 Corrected Calcium 9.8 mg/dL (8.5-10.1) 03/01/20 05:25 Total Bilirubin 0.20 mg/dL (0.2-1.0) 03/01/20 05:25 AST 26 Units/L (15-37) 03/01/20 05:25 ALT 18 Units/L (12-78) 03/01/20 05:25 Alkaline Phosphatase 60 Units/L (46-116) 03/01/20 05:25 Creatine Kinase 94 Units/L (26-192) 02/29/20 04:23 CK-MB (CK-2) 3.5 ng/mL (0-4.0) 02/29/20 04:23 CK/CKMB % Calc 3.7 % (<4) 02/29/20 04:23 Troponin I < 0.02 ng/mL (0-1.5) 02/29/20 04:23 Total Protein 6.8 g/dL (6.4-8.2) 03/01/20 05:25 Albumin 2.7 g/dL (3.4-5.0) L 03/01/20 05:25 Globulin 4.1 g/dL (2.5-4.5) 03/01/20 05:25 Albumin/Globulin Ratio 0.7 Ratio (1.1-2.1) L 03/01/20 05:25 Specimen Type Catherized urine 02/29/20 04:42 Urine Color Pale yellow (YELLOW) 02/29/20 04:42 Urine Appearance Clear (CLEAR) 02/29/20 04:42 Urine pH 5.0 (5.0 - 8.0) 02/29/20 04:42 Ur Specific [place] 1.015 (1.000-1.030) 02/29/20 04:42 Urine Protein 4+ (NEGATIVE) 02/29/20 04:42 Urine Glucose (UA) 4+ (NEGATIVE) 02/29/20 04:42 Urine Ketones Negative (NEGATIVE) 02/29/20 04:42 Urine Occult Blood 3+ (NEGATIVE) 02/29/20 04:42 Urine Nitrite Negative (NEGATIVE) 02/29/20 04:42 Urine Bilirubin Negative (NEGATIVE) 02/29/20 04:42 Urine Urobilinogen Normal (NORMAL) 02/29/20 04:42 Ur Leukocyte Esterase Negative (NEGATIVE) 02/29/20 04:42 Urine RBC 0-2 /HPF (0-3) 02/29/20 04:42 Urine WBC 0-2 /HPF (0-5) 02/29/20 04:42 Ur Squamous Epith Cells Rare /HPF (NEGATIVE) 02/29/20 04:42 Amorphous Sediment 1+ /HPF (NEGATIVE) 02/29/20 04:42 Urine Bacteria Trace /HPF (NEGATIVE) 02/29/20 04:42 Ur Culture Indicated? No/not indicated 02/29/20 04:42 SARS-CoV-2 (PCR) Negative (NEGATIVE) 02/29/20 08:54 Review of Systems Constitutional: Malaise Eyes: No Symptoms Reported ENT: No Symptoms Reported Respiratory: Cough, Shortness of Breath, SOB with Excertion and Wheezing Cardiovascular: Orthopnea and Edema Gastrointestinal: No Symptoms Reported Genitourinary: No Symptoms Reported Musculoskeletal: Back Pain and Leg Pain Neurological: No Symptoms Reported Physical Exam Vital Signs: Temperature 97.8 F Pulse Rate [Brachial] 88 Pulse Rate 98 Respiratory Rate 24 Blood Pressure [Left Arm] 151/73 Blood Pressure 216/97 O2 Sat by Pulse Oximetry 98 Oriented: Normal Eyes: Normal Ear: Normal Throat: Normal Respiratory: Wheezes Throughout, RLL Rales and LLL Rales Cardiovascular: Normal and Edema (2-3+ b/l edema ) Auscultation: Bowel Sounds: Normal Palpation: Normal Tenderness: Normal Musculoskeletal: Back:Thoracic and Back:Lumbar Psychiatric: Normal Mood Description: Calm Affect: Normal Speech Pattern: Clear and Appropriate Assessment/Plan (1) Acute respiratory failure with hypoxia and hypercapnia: Status: Acute (2) Chronic congestive heart failure: Qualifiers: Heart failure type: unspecified Qualified Code(s): I50.9 - Heart failure, unspecified Status: Acute (3) COPD with exacerbation: Status: Acute (4) Acute hyperkalemia: Status: Acute (5) Chronic kidney disease (CKD): Qualifiers: Chronic kidney disease stage: stage 3 (moderate) Qualified Code(s): N18.3 - Chronic kidney disease, stage 3 (moderate) Status: Acute (6) Diabetes mellitus: Qualifiers: Diabetes mellitus complication status: with kidney complications Diabetes mellitus type: type 2 Status: Acute (7) Anemia: Qualifiers: Other causes of anemia: other cause, not classified Status: Acute Review H&P Reviewed: Yes Patient was examined?: Yes
[2020-03-01] MEDS: DUONEB 0.5 MG/3 MG (3 mL) NEB SCH ×2 (14:15→21:10)
[2020-03-01] MEDS ORDERED: SALINE 0.9% 3 ML NEB TX ONE (17:19)
[2020-03-01] MEDS ORDERED: VENTOLIN or PROAIR HFA ONE (17:24)
[2020-03-01] MEDS ORDERED: VENTOLIN or PROAIR HFA IN PRN (18:53)
[2020-03-01] MEDS: SNACK - Diabetic Appropriate PO SCH (21:11)
[2020-03-01] MEDS: ZOCOR TAB 40 MG PO SCH (21:12)
[2020-03-01] MEDS: TRICOR TAB 160 MG PO SCH (21:12)
[2020-03-01] MEDS: CYMBALTA PO SCH (21:13)
[2020-03-01] MEDS: LEVEMIR SC SCH (21:13)
[2020-03-02] MEDS: DUONEB 0.5 MG/3 MG (3 mL) NEB SCH ×3 (05:32→22:30)
[2020-03-02] MEDS: NEURONTIN CAP 400 MG PO SCH ×3 (05:57→21:12)
[2020-03-02] MEDS: NORCO 7.5/325 MG TAB PO SCH ×3 (05:57→21:13)
[2020-03-02] MEDS: XANAX PO SCH ×3 (05:59→21:12)
[2020-03-02] MEDS: HumuLIN R SUBCUT PRN (06:01)
[2020-03-02 06:33] LABS: CALCIUM 8.5 mg/dL (8.5-10.1); CARBON DIOXIDE 29.9 mmol/L (21-32); CREATININE 2.18 mg/dL (0.55-1.02)
[2020-03-02 07:04] LABS: BASOPHILS % (AUTO) 0.2 % (0.2-1.0); EOSINOPHILS % (AUTO) 0.1 % (0.9-2.9); HEMATOCRIT 29.5 % (36.0-47.0); HEMOGLOBIN 9.5 g/dL (12.0-16.0); LYMPHOCYTES # (AUTO) 1.3 X10^3/uL (1.3-2.9); LYMPHOCYTES % (AUTO) 14.7 % (21.0-51.0); MEAN CORPUSCULAR HGB CONC 32.1 g/dL (33.0-35.0); MEAN CORPUSCULAR VOLUME 87.1 fL (80.0-100.0); MONOCYTES # (AUTO) 0.5 x10^3/uL (0.3-0.8); MONOCYTES % (AUTO) 5.6 % (0.0-13.0); NEUTROPHILS % (AUTO) 79.4 % (42.0-75.0); PLATELET COUNT 293 X10^3/uL (150.0-450.0); RED BLOOD COUNT 3.39 X10^6/uL (3.5-5.4); RED CELL DISTRIBUTION WIDTH 15.6 % (11.6-16.5); WHITE BLOOD COUNT 8.8 X10^3/uL (3.6-10.0)
[2020-03-02] MEDS: ABILIFY PO SCH (09:58)
[2020-03-02] MEDS: COREG TAB 3.125 MG PO SCH ×2 (09:58→20:15)
[2020-03-02] MEDS: NYSTATIN POWDER TOP SCH ×2 (09:59→20:18)
[2020-03-02] MEDS: REQUIP PO SCH ×2 (09:59→20:17)
[2020-03-02] MEDS: PROTONIX TAB 40 MG PO SCH (09:59)
[2020-03-02] MEDS: LASIX PO SCH (10:00)
[2020-03-02] MEDS: SYNTHROID 125 mcg TAB PO SCH (10:00)
[2020-03-02] MEDS: ZANAFLEX PO SCH ×2 (10:00→20:14)
[2020-03-02] MEDS: KAYEXALATE SUSP PO SCH ×2 (10:06→20:53)
[2020-03-02] MEDS: HEPARIN SODIUM INJ 5000 UNITS SC SCH ×2 (10:19→20:15)
--- NOTE | 2020-03-02 11:56 | PCM.PROG ---
Progress Note Progress Note for Day of Date of Exam: 03/02/20 Subjective Subjective: Patient seen at bedside, no events overnight. She states she is feeling a lot better. Her breathing has improved, she was on 2L yesterday. She is currently on 3L. Denies cough, fever or chills. She reports dysuria and wants to make sure she doesn't have UTI. Labs: net balance neg 1L, Hgb:7.5 K:5.5 BUN/Cr: 60/2.18 Glucose 254 Plan: check UA, resume home dose of Lasix, heparin for DVT ppx, monitor AM labs. Continue Duonebs. Add kayexalate BID. Increase Levemir to 30 units qPM. Past Medical Family Social History Past Med/Fam/Surg Hx: No changes since H&P Allergies: Allergies oxycodone Allergy (Verified 01/15/20 22:23) Review of Systems ROS: No change since H&P Vital Signs and I&O's Vital Signs: Temperature 97.8 F Pulse Rate [Brachial] 83 Pulse Rate 102 Respiratory Rate 20 Blood Pressure [Left Arm] 135/65 Blood Pressure 216/97 O2 Sat by Pulse Oximetry 100 Intake and Output: Intake & Output 02/28/20 02/29/20 03/01/20 03/02/20 23:59 23:59 23:59 23:59 Intake Total 250 / 250 2270 / 2270 230 / 230 Output Total 1999 / 1999 3250 / 3250 600 / 600 Balance -1750 / -1750 -980 / -980 -370 / -370 Physical Exam Oriented: Normal Eyes: Normal Ear: Normal Throat: Normal Respiratory: Rales Cardiovascular: Normal and Edema (2-3+ b/l edema - slightly improved ) Auscultation: Bowel Sounds: Normal Tenderness: Normal Skin: Normal Musculoskeletal: Back:Thoracic and Back:Lumbar Psychiatric: Normal Mood Description: Calm Affect: Normal Speech Pattern: Clear and Appropriate Laboratory and Diagnostics Result Diagrams: 03/02/20 05:30 03/02/20 05:30 Labs: Laboratory WBC 8.8 X10^3/uL (3.6-10.0) 03/02/20 05:30 RBC 3.39 X10^6/uL (3.5-5.4) L 03/02/20 05:30 Hgb 9.5 g/dL (12.0-16.0) L 03/02/20 05:30 Hct 29.5 % (36.0-47.0) L 03/02/20 05:30 MCV 87.1 fL (80.0-100.0) 03/02/20 05:30 MCH 28.0 pg (27.0-34.0) 03/02/20 05:30 MCHC 32.1 g/dL (33.0-35.0) L 03/02/20 05:30 RDW 15.6 % (11.6-16.5) 03/02/20 05:30 Plt Count 293 X10^3/uL (150.0-450.0) 03/02/20 05:30 MPV 8.0 fL (7.4-11.0) 03/02/20 05:30 Neut % (Auto) 79.4 % (42.0-75.0) H 03/02/20 05:30 Lymph % (Auto) 14.7 % (21.0-51.0) L 03/02/20 05:30 [place] % (Auto) 5.6 % (0.0-13.0) 03/02/20 05:30 Eos % (Auto) 0.1 % (0.9-2.9) L 03/02/20 05:30 Baso % (Auto) 0.2 % (0.2-1.0) 03/02/20 05:30 Neut # (Auto) 7.0 x10^3/uL (2.2-4.8) H 03/02/20 05:30 Lymph # (Auto) 1.3 X10^3/uL (1.3-2.9) 03/02/20 05:30 [place] # (Auto) 0.5 x10^3/uL (0.3-0.8) 03/02/20 05:30 Eos # (Auto) 0.0 x10^3/uL (0.0-0.2) 03/02/20 05:30 Baso # (Auto) 0.0 X10^3/uL (0.0-0.1) 03/02/20 05:30 Absolute Nucleated RBC 0.0 /100WBC 03/02/20 05:30 Sample Site Rrad 02/29/20 11:00 ABG pH 7.260 (7.35-7.45) L 02/29/20 11:00 ABG pCO2 59.0 mmHg (35.0-45.0) H* 02/29/20 11:00 ABG pO2 114.0 mmHg (80.0-100.0) H 02/29/20 11:00 ABG HCO3 26.5 mmol/L (22-26) H 02/29/20 11:00 ABG O2 Saturation 98.0 % (90-100) 02/29/20 11:00 ABG Base Excess -1.5 mmol/L (-2.0-2.0) 02/29/20 11:00 Christos Test Postive 02/29/20 11:00 A-a Gradient Not Reportable 02/29/20 11:00 FiO2 45 02/29/20 11:00 Blood Gas Comments Hard stick sd 02/29/20 11:00 Sodium 136 mmol/L (136-145) 03/02/20 05:30 Corrected Sodium 140 mmol/L (136-145) 03/02/20 05:30 Potassium 5.5 mmol/L (3.5-5.1) H 03/02/20 05:30 Chloride 103 mmol/L (98-107) 03/02/20 05:30 Carbon Dioxide 29.9 mmol/L (21-32) 03/02/20 05:30 BUN 60 mg/dL (7-18) H 03/02/20 05:30 Creatinine 2.18 mg/dL (0.55-1.02) H 03/02/20 05:30 Est GFR (MDRD) Af Amer 29 (>60) L 03/02/20 05:30 Est GFR (MDRD) Non-Af 24 (>60) L 03/02/20 05:30 Glucose 254 mg/dL (65-99) H 03/02/20 05:30 POC Glucose (mg/dL) 213 mg/dL (65-99) H 03/02/20 05:35 Calcium 8.5 mg/dL (8.5-10.1) 03/02/20 05:30 Corrected Calcium 9.8 mg/dL (8.5-10.1) 03/01/20 05:25 Total Bilirubin 0.20 mg/dL (0.2-1.0) 03/01/20 05:25 AST 26 Units/L (15-37) 03/01/20 05:25 ALT 18 Units/L (12-78) 03/01/20 05:25 Alkaline Phosphatase 60 Units/L (46-116) 03/01/20 05:25 Creatine Kinase 94 Units/L (26-192) 02/29/20 04:23 CK-MB (CK-2) 3.5 ng/mL (0-4.0) 02/29/20 04:23 CK/CKMB % Calc 3.7 % (<4) 02/29/20 04:23 Troponin I < 0.02 ng/mL (0-1.5) 02/29/20 04:23 Total Protein 6.8 g/dL (6.4-8.2) 03/01/20 05:25 Albumin 2.7 g/dL (3.4-5.0) L 03/01/20 05:25 Globulin 4.1 g/dL (2.5-4.5) 03/01/20 05:25 Albumin/Globulin Ratio 0.7 Ratio (1.1-2.1) L 03/01/20 05:25 Specimen Type Catherized urine 02/29/20 04:42 Urine Color Pale yellow (YELLOW) 02/29/20 04:42 Urine Appearance Clear (CLEAR) 02/29/20 04:42 Urine pH 5.0 (5.0 - 8.0) 02/29/20 04:42 Ur Specific [place] 1.015 (1.000-1.030) 02/29/20 04:42 Urine Protein 4+ (NEGATIVE) 02/29/20 04:42 Urine Glucose (UA) 4+ (NEGATIVE) 02/29/20 04:42 Urine Ketones Negative (NEGATIVE) 02/29/20 04:42 Urine Occult Blood 3+ (NEGATIVE) 02/29/20 04:42 Urine Nitrite Negative (NEGATIVE) 02/29/20 04:42 Urine Bilirubin Negative (NEGATIVE) 02/29/20 04:42 Urine Urobilinogen Normal (NORMAL) 02/29/20 04:42 Ur Leukocyte Esterase Negative (NEGATIVE) 02/29/20 04:42 Urine RBC 0-2 /HPF (0-3) 02/29/20 04:42 Urine WBC 0-2 /HPF (0-5) 02/29/20 04:42 Ur Squamous Epith Cells Rare /HPF (NEGATIVE) 02/29/20 04:42 Amorphous Sediment 1+ /HPF (NEGATIVE) 02/29/20 04:42 Urine Bacteria Trace /HPF (NEGATIVE) 02/29/20 04:42 Ur Culture Indicated? No/not indicated 02/29/20 04:42 SARS-CoV-2 (PCR) Negative (NEGATIVE) 02/29/20 08:54 Plan (1) Acute respiratory failure with hypoxia and hypercapnia: Status: Acute (2) Chronic congestive heart failure: Status: Acute Qualifiers: Heart failure type: unspecified Qualified Code(s): I50.9 - Heart failure, unspecified (3) COPD with exacerbation: Status: Acute (4) Acute hyperkalemia: Status: Acute (5) Chronic kidney disease (CKD): Status: Acute Qualifiers: Chronic kidney disease stage: stage 3 (moderate) Qualified Code(s): N18.3 - Chronic kidney disease, stage 3 (moderate) (6) Diabetes mellitus: Status: Acute Qualifiers: Diabetes mellitus complication status: with kidney complications Diabetes mellitus type: type 2 (7) Anemia: Status: Acute Qualifiers: Other causes of anemia: other cause, not classified
[2020-03-02 16:11] LABS: APPEARANCE,URINE CLOUDY (CLEAR); BACTERIA,URINE 1+ /HPF (NEGATIVE); BILIRUBIN,URINE NEGATIVE (NEGATIVE); BLOOD/HEMOGLOBIN,URINE 1+ (NEGATIVE); COLOR,URINE YELLOW (YELLOW); GLUCOSE, URINE NEGATIVE (NEGATIVE); KETONES,URINE NEGATIVE (NEGATIVE); LEUKOCYTE ESTERASE ,URINE 2+ (NEGATIVE); NITRITES,URINE POSITIVE (NEGATIVE); PROTEIN,URINE 4+ (NEGATIVE); SQUAMOUS EPITHELIAL CELL,UR FEW /HPF (NEGATIVE); UROBILINOGEN,URINE NORMAL (NORMAL)
[2020-03-02] MEDS: CYMBALTA PO SCH (20:14)
[2020-03-02] MEDS: TRICOR TAB 160 MG PO SCH (20:15)
[2020-03-02] MEDS: ZOCOR TAB 40 MG PO SCH (20:17)
[2020-03-02] MEDS: LEVEMIR SC SCH (20:18)
[2020-03-02] MEDS: SNACK - Diabetic Appropriate PO SCH (21:11)
[2020-03-03] MEDS: LASIX IVP SCH (02:19)
[2020-03-03] MEDS: DUONEB 0.5 MG/3 MG (3 mL) NEB SCH ×3 (05:20→21:30)
[2020-03-03] MEDS: XANAX PO SCH ×3 (05:32→21:35)
[2020-03-03] MEDS: NEURONTIN CAP 400 MG PO SCH ×3 (05:32→21:34)
[2020-03-03] MEDS: NORCO 7.5/325 MG TAB PO SCH ×3 (05:33→21:34)
[2020-03-03 06:36] LABS: BASOPHILS % (AUTO) 0.5 % (0.2-1.0); EOSINOPHILS # (AUTO) 0.3 x10^3/uL (0.0-0.2); EOSINOPHILS % (AUTO) 2.6 % (0.9-2.9); HEMATOCRIT 30.7 % (36.0-47.0); HEMOGLOBIN 9.9 g/dL (12.0-16.0); LYMPHOCYTES % (AUTO) 19.9 % (21.0-51.0); MEAN CORPUSCULAR HEMOGLOBIN 27.6 pg (27.0-34.0); MEAN CORPUSCULAR HGB CONC 32.3 g/dL (33.0-35.0); MEAN CORPUSCULAR VOLUME 85.4 fL (80.0-100.0); MEAN PLATELET VOLUME 7.5 fL (7.4-11.0); MONOCYTES # (AUTO) 0.8 x10^3/uL (0.3-0.8); PLATELET COUNT 336 X10^3/uL (150.0-450.0); RED BLOOD COUNT 3.59 X10^6/uL (3.5-5.4); WHITE BLOOD COUNT 10.2 X10^3/uL (3.6-10.0)
[2020-03-03 06:46] LABS: CALCIUM 8.6 mg/dL (8.5-10.1); CARBON DIOXIDE 32.7 mmol/L (21-32); CREATININE 1.81 mg/dL (0.55-1.02)
[2020-03-03] MEDS: ABILIFY PO SCH (09:40)
[2020-03-03] MEDS: COREG TAB 3.125 MG PO SCH ×2 (09:40→21:00)
[2020-03-03] MEDS: KAYEXALATE SUSP PO SCH (09:41)
[2020-03-03] MEDS: NYSTATIN POWDER TOP SCH (09:41)
[2020-03-03] MEDS: LASIX PO SCH (09:41)
[2020-03-03] MEDS: REQUIP PO SCH ×2 (09:42→21:00)
[2020-03-03] MEDS: ZANAFLEX PO SCH ×2 (09:42→21:00)
[2020-03-03] MEDS: PROTONIX TAB 40 MG PO SCH (09:42)
[2020-03-03] MEDS: SYNTHROID 125 mcg TAB PO SCH (09:42)
[2020-03-03] MEDS: HEPARIN SODIUM INJ 5000 UNITS SC SCH ×2 (09:43→21:00)
[2020-03-03] MEDS ORDERED: NS 50 ML IV 50 ML IV ONE (09:49)
[2020-03-03] MEDS: ROCEPHIN VIAL 1 GRAM 1 G in NS 100 ML IV + SPIKE MINIBAG* 100 ML IV SCH (10:03)
--- NOTE | 2020-03-03 10:44 | PCM.PROG ---
Progress Note Progress Note for Day of Date of Exam: 03/03/20 Subjective Subjective: Patient seen at bedside, no overnight events. She states she feels better. She is on 3L and reports her breathing is a lot better. Her leg edema has improved. She denies fever or chills. Labs: WBC 10.2 BUN/Cr: 52/1.81 Wt down 5 lbs from yesterday K:4.9 UA: positive for nitrites, LEONARDO and WBC Plan: start Rocephin for UTI, follow cultures, continue PO Lasix, wean O2 as tolerated. Patient uses 2L at home continuously. Possible discharge tomorrow. Past Medical Family Social History Past Med/Fam/Surg Hx: No changes since H&P Allergies: Allergies oxycodone Allergy (Verified 01/15/20 22:23) Review of Systems ROS: No change since H&P Vital Signs and I&O's Vital Signs: Temperature 98.3 F Pulse Rate [Brachial] 85 Pulse Rate 88 Respiratory Rate 22 Blood Pressure [Left Arm] 138/92 Blood Pressure 216/97 O2 Sat by Pulse Oximetry 100 Intake and Output: Intake & Output 02/29/20 03/01/20 03/02/20 03/03/20 23:59 23:59 23:59 23:59 Intake Total 250 / 250 2270 / 2270 940 / 940 260 / 260 Output Total 1999 / 1999 3250 / 3250 3200 / 3200 900 / 900 Balance -1750 / -1750 -980 / -980 -2260 / -2260 -640 / -640 Physical Exam Oriented: Normal Eyes: Normal Ear: Normal Throat: Normal Respiratory: Rales (bibasilar ) Cardiovascular: Normal and Edema (2-3+ b/l edema - slightly improved ) Auscultation: Bowel Sounds: Normal Tenderness: Normal Skin: Normal Musculoskeletal: Back:Thoracic and Back:Lumbar Psychiatric: Normal Mood Description: Calm Affect: Normal Speech Pattern: Clear and Appropriate Laboratory and Diagnostics Result Diagrams: 03/03/20 05:35 03/03/20 05:35 Labs: 03/02/20 15:51 Urine,Clean Catch Urine Culture - Preliminary Laboratory WBC 10.2 X10^3/uL (3.6-10.0) H 03/03/20 05:35 RBC 3.59 X10^6/uL (3.5-5.4) 03/03/20 05:35 Hgb 9.9 g/dL (12.0-16.0) L 03/03/20 05:35 Hct 30.7 % (36.0-47.0) L 03/03/20 05:35 MCV 85.4 fL (80.0-100.0) 03/03/20 05:35 MCH 27.6 pg (27.0-34.0) 03/03/20 05:35 MCHC 32.3 g/dL (33.0-35.0) L 03/03/20 05:35 RDW 16.0 % (11.6-16.5) 03/03/20 05:35 Plt Count 336 X10^3/uL (150.0-450.0) 03/03/20 05:35 MPV 7.5 fL (7.4-11.0) 03/03/20 05:35 Neut % (Auto) 69.0 % (42.0-75.0) 03/03/20 05:35 Lymph % (Auto) 19.9 % (21.0-51.0) L 03/03/20 05:35 [place] % (Auto) 8.0 % (0.0-13.0) 03/03/20 05:35 Eos % (Auto) 2.6 % (0.9-2.9) 03/03/20 05:35 Baso % (Auto) 0.5 % (0.2-1.0) 03/03/20 05:35 Neut # (Auto) 7.0 x10^3/uL (2.2-4.8) H 03/03/20 05:35 Lymph # (Auto) 2.0 X10^3/uL (1.3-2.9) 03/03/20 05:35 [place] # (Auto) 0.8 x10^3/uL (0.3-0.8) 03/03/20 05:35 Eos # (Auto) 0.3 x10^3/uL (0.0-0.2) H 03/03/20 05:35 Baso # (Auto) 0.0 X10^3/uL (0.0-0.1) 03/03/20 05:35 Absolute Nucleated RBC 0.0 /100WBC 03/03/20 05:35 Sample Site Rrad 02/29/20 11:00 ABG pH 7.260 (7.35-7.45) L 02/29/20 11:00 ABG pCO2 59.0 mmHg (35.0-45.0) H* 02/29/20 11:00 ABG pO2 114.0 mmHg (80.0-100.0) H 02/29/20 11:00 ABG HCO3 26.5 mmol/L (22-26) H 02/29/20 11:00 ABG O2 Saturation 98.0 % (90-100) 02/29/20 11:00 ABG Base Excess -1.5 mmol/L (-2.0-2.0) 02/29/20 11:00 Christos Test Postive 02/29/20 11:00 A-a Gradient Not Reportable 02/29/20 11:00 FiO2 45 02/29/20 11:00 Blood Gas Comments Hard stick sd 02/29/20 11:00 Sodium 140 mmol/L (136-145) 03/03/20 05:35 Corrected Sodium 141 mmol/L (136-145) 03/03/20 05:35 Potassium 4.9 mmol/L (3.5-5.1) 03/03/20 05:35 Chloride 104 mmol/L (98-107) 03/03/20 05:35 Carbon Dioxide 32.7 mmol/L (21-32) H 03/03/20 05:35 BUN 52 mg/dL (7-18) H 03/03/20 05:35 Creatinine 1.81 mg/dL (0.55-1.02) H 03/03/20 05:35 Est GFR (MDRD) Af Amer 36 (>60) L 03/03/20 05:35 Est GFR (MDRD) Non-Af 30 (>60) L 03/03/20 05:35 Glucose 127 mg/dL (65-99) H 03/03/20 05:35 POC Glucose (mg/dL) 118 mg/dL (65-99) H 03/03/20 05:15 Calcium 8.6 mg/dL (8.5-10.1) 03/03/20 05:35 Corrected Calcium 9.8 mg/dL (8.5-10.1) 03/01/20 05:25 Total Bilirubin 0.20 mg/dL (0.2-1.0) 03/01/20 05:25 AST 26 Units/L (15-37) 03/01/20 05:25 ALT 18 Units/L (12-78) 03/01/20 05:25 Alkaline Phosphatase 60 Units/L (46-116) 03/01/20 05:25 Creatine Kinase 94 Units/L (26-192) 02/29/20 04:23 CK-MB (CK-2) 3.5 ng/mL (0-4.0) 02/29/20 04:23 CK/CKMB % Calc 3.7 % (<4) 02/29/20 04:23 Troponin I < 0.02 ng/mL (0-1.5) 02/29/20 04:23 Total Protein 6.8 g/dL (6.4-8.2) 03/01/20 05:25 Albumin 2.7 g/dL (3.4-5.0) L 03/01/20 05:25 Globulin 4.1 g/dL (2.5-4.5) 03/01/20 05:25 Albumin/Globulin Ratio 0.7 Ratio (1.1-2.1) L 03/01/20 05:25 Specimen Type Clean catch urine 03/02/20 15:51 Urine Color Yellow (YELLOW) 03/02/20 15:51 Urine Appearance Cloudy (CLEAR) 03/02/20 15:51 Urine pH 5.0 (5.0 - 8.0) 03/02/20 15:51 Ur Specific [place] 1.010 (1.000-1.030) 03/02/20 15:51 Urine Protein 4+ (NEGATIVE) 03/02/20 15:51 Urine Glucose (UA) Negative (NEGATIVE) 03/02/20 15:51 Urine Ketones Negative (NEGATIVE) 03/02/20 15:51 Urine Occult Blood 1+ (NEGATIVE) 03/02/20 15:51 Urine Nitrite Positive (NEGATIVE) 03/02/20 15:51 Urine Bilirubin Negative (NEGATIVE) 03/02/20 15:51 Urine Urobilinogen Normal (NORMAL) 03/02/20 15:51 Ur Leukocyte Esterase 2+ (NEGATIVE) 03/02/20 15:51 Urine RBC 3-5 /HPF (0-3) A 03/02/20 15:51 Urine WBC 10-20 /HPF (0-5) A 03/02/20 15:51 Ur Squamous Epith Cells Few /HPF (NEGATIVE) 03/02/20 15:51 Amorphous Sediment 1+ /HPF (NEGATIVE) 02/29/20 04:42 Urine Bacteria 1+ /HPF (NEGATIVE) 03/02/20 15:51 Ur Culture Indicated? Yes/culture set up 03/02/20 15:51 SARS-CoV-2 (PCR) Negative (NEGATIVE) 02/29/20 08:54 Plan (1) Acute respiratory failure with hypoxia and hypercapnia: Status: Acute (2) Chronic congestive heart failure: Status: Acute Qualifiers: Heart failure type: unspecified Qualified Code(s): I50.9 - Heart failure, unspecified (3) COPD with exacerbation: Status: Acute (4) Acute hyperkalemia: Status: Acute (5) Chronic kidney disease (CKD): Status: Acute Qualifiers: Chronic kidney disease stage: stage 3 (moderate) Qualified Code(s): N18.3 - Chronic kidney disease, stage 3 (moderate) (6) Diabetes mellitus: Status: Acute Qualifiers: Diabetes mellitus complication status: with kidney complications Diabetes mellitus type: type 2 (7) Anemia: Status: Acute Qualifiers: Other causes of anemia: other cause, not classified
[2020-03-03] MEDS ORDERED: APRESOLINE INJ 20 MG VIAL IVP ONE (11:52)
[2020-03-03] MEDS ORDERED: APRESOLINE INJ 20 MG VIAL ONE (11:57)
[2020-03-03] MEDS ORDERED: NORMODYNE INJ 20 MG VIAL IVP ONE (16:21)
[2020-03-03] MEDS ORDERED: NORMODYNE INJ 100 MG VIAL ONE (16:25)
[2020-03-03] MEDS: HumuLIN R SUBCUT PRN (16:58)
[2020-03-03] MEDS: APRESOLINE INJ 20 MG VIAL IVP PRN (18:08)
[2020-03-03] MEDS: SNACK - Diabetic Appropriate PO SCH (20:29)
[2020-03-03] MEDS: ZOCOR TAB 40 MG PO SCH (21:00)
[2020-03-03] MEDS: LEVEMIR SC SCH (21:00)
[2020-03-03] MEDS: CYMBALTA PO SCH (21:00)
[2020-03-03] MEDS: TRICOR TAB 160 MG PO SCH (21:00)
[2020-03-03] MEDS ORDERED: ZOFRAN INJ 4 MG VIAL ONE (22:37)
[2020-03-03] MEDS: ZOFRAN INJ 4 MG VIAL IVP PRN (22:42)
[2020-03-04] MEDS: NYSTATIN POWDER TOP SCH ×2 (01:32→11:22)
[2020-03-04] MEDS: XANAX PO SCH ×3 (01:35→14:22)
[2020-03-04] MEDS: APRESOLINE INJ 20 MG VIAL IVP PRN (04:45)
[2020-03-04] MEDS: NORCO 7.5/325 MG TAB PO SCH ×2 (05:18→14:22)
[2020-03-04] MEDS: NEURONTIN CAP 400 MG PO SCH ×2 (05:18→14:22)
[2020-03-04] MEDS: DUONEB 0.5 MG/3 MG (3 mL) NEB SCH (05:35)
[2020-03-04 06:07] LABS: BASOPHILS % (AUTO) 0.4 % (0.2-1.0); EOSINOPHILS # (AUTO) 0.3 x10^3/uL (0.0-0.2); EOSINOPHILS % (AUTO) 2.6 % (0.9-2.9); HEMATOCRIT 33.5 % (36.0-47.0); HEMOGLOBIN 10.8 g/dL (12.0-16.0); LYMPHOCYTES # (AUTO) 1.5 X10^3/uL (1.3-2.9); MEAN CORPUSCULAR HEMOGLOBIN 27.5 pg (27.0-34.0); MEAN CORPUSCULAR HGB CONC 32.1 g/dL (33.0-35.0); MEAN CORPUSCULAR VOLUME 85.6 fL (80.0-100.0); MEAN PLATELET VOLUME 7.6 fL (7.4-11.0); MONOCYTES # (AUTO) 0.8 x10^3/uL (0.3-0.8); MONOCYTES % (AUTO) 7.5 % (0.0-13.0); NEUTROPHILS # (AUTO) 7.6 x10^3/uL (2.2-4.8); NEUTROPHILS % (AUTO) 74.5 % (42.0-75.0); PLATELET COUNT 379 X10^3/uL (150.0-450.0); RED BLOOD COUNT 3.91 X10^6/uL (3.5-5.4); RED CELL DISTRIBUTION WIDTH 15.7 % (11.6-16.5); WHITE BLOOD COUNT 10.2 X10^3/uL (3.6-10.0)
[2020-03-04 06:26] LABS: CALCIUM 8.7 mg/dL (8.5-10.1); CARBON DIOXIDE 32.8 mmol/L (21-32); CREATININE 1.69 mg/dL (0.55-1.02)
[2020-03-04] MEDS: ZOFRAN INJ 4 MG VIAL IVP PRN (08:19)
[2020-03-04] MEDS: COREG TAB 3.125 MG PO SCH ×2 (09:20→11:00)
[2020-03-04] MEDS: ROCEPHIN VIAL 1 GRAM 1 G in NS 100 ML IV + SPIKE MINIBAG* 100 ML IV SCH (09:20)
[2020-03-04] MEDS: ABILIFY PO SCH (09:20)
[2020-03-04] MEDS: ZANAFLEX PO SCH ×2 (09:21→11:00)
[2020-03-04] MEDS: HEPARIN SODIUM INJ 5000 UNITS SC SCH ×2 (09:21→11:00)
[2020-03-04] MEDS: PROTONIX TAB 40 MG PO SCH ×2 (09:21→11:00)
[2020-03-04] MEDS: REQUIP PO SCH ×2 (09:21→11:00)
[2020-03-04] MEDS: LASIX PO SCH ×2 (09:21→11:00)
[2020-03-04] MEDS: SYNTHROID 125 mcg TAB PO SCH ×2 (09:22→11:00)
[2020-03-04 12:23] VITALS: BP 147/77
--- NOTE | 2020-03-04 12:49 | W.DIS.FURT ---
Summary of Discharge Discharge Summary of Date Date of Exam: 03/04/20 Admission Date Date of Admission: 02/29/20 Admission Diagnosis Hospital Course: Ms. Palomares is a 65y/o female with hx of morbid obesity, CKD, HTN, HLD, chronic pain and anxiety and CHF presented with worsening SOB. Patient also reported increased leg swelling and weight gain. She uses 2L continuous oxygen at home. She presented with acute CHF and COPD exacerbation. She receeved IV lasix in the ED and was placed on BiPAP. She was admitted with telemetry with strict I/Os. She was also started on solumedrol along with duonebs. Her labs were monitored daily and she was transitioned to nasal canula. She diuresed well with good urine output and improvement in leg edema. Her renal function improved. She was evaluated by Rt and was stable on 2L oxygen. She was transitioned back to oral lasix. She was also found to have UTI. She was started on IV Rocephin. She was advised to have a sleep study done. She will follow up with PCP as scheduled. Vital Signs: Vital Signs (72 hours) 03/01/20 14:15 03/01/20 14:40 03/01/20 15:40 Temperature Pulse Rate 80 Pulse Rate [Brachial] Respiratory Rate 22 20 Blood Pressure [Left Arm] Blood Pressure [Right Arm] O2 Sat by Pulse Oximetry 93 L 03/01/20 16:00 03/01/20 19:55 03/01/20 21:10 Temperature 97.4 F L 98.9 F Pulse Rate 102 H Pulse Rate [Brachial] 79 96 H Respiratory Rate 20 28 H Blood Pressure [Left Arm] 191/81 183/81 Blood Pressure [Right Arm] O2 Sat by Pulse Oximetry 93 L 93 L 96 03/01/20 21:11 03/01/20 22:11 03/02/20 00:00 Temperature 98.1 F Pulse Rate Pulse Rate [Brachial] 86 Respiratory Rate 22 20 24 Blood Pressure [Left Arm] 129/59 Blood Pressure [Right Arm] O2 Sat by Pulse Oximetry 94 L 03/02/20 04:00 03/02/20 05:57 03/02/20 06:57 Temperature 98.7 F Pulse Rate Pulse Rate [Brachial] 79 Respiratory Rate 22 18 20 Blood Pressure [Left Arm] 168/76 Blood Pressure [Right Arm] O2 Sat by Pulse Oximetry 98 03/02/20 08:00 03/02/20 12:00 03/02/20 14:15 Temperature 97.8 F 97.9 F Pulse Rate 90 Pulse Rate [Brachial] 83 83 Respiratory Rate 20 20 Blood Pressure [Left Arm] 135/65 147/67 Blood Pressure [Right Arm] O2 Sat by Pulse Oximetry 100 100 96 03/02/20 14:58 03/02/20 15:58 03/02/20 16:00 Temperature 98.1 F Pulse Rate Pulse Rate [Brachial] 83 Respiratory Rate 18 18 20 Blood Pressure [Left Arm] 168/72 Blood Pressure [Right Arm] O2 Sat by Pulse Oximetry 100 03/02/20 20:00 03/02/20 21:13 03/02/20 22:13 Temperature 97.7 F Pulse Rate Pulse Rate [Brachial] 80 Respiratory Rate 20 20 20 Blood Pressure [Left Arm] 182/75 Blood Pressure [Right Arm] O2 Sat by Pulse Oximetry 98 03/02/20 22:30 03/03/20 00:00 03/03/20 03:58 Temperature 98.3 F 98.3 F Pulse Rate 88 Pulse Rate [Brachial] 91 H 85 Respiratory Rate 20 18 Blood Pressure [Left Arm] 168/65 138/92 Blood Pressure [Right Arm] O2 Sat by Pulse Oximetry 98 100 100 03/03/20 05:33 03/03/20 06:33 03/03/20 08:00 Temperature 98.3 F Pulse Rate Pulse Rate [Brachial] 97 H Respiratory Rate 18 22 22 Blood Pressure [Left Arm] 189/91 Blood Pressure [Right Arm] O2 Sat by Pulse Oximetry 98 03/03/20 11:30 03/03/20 12:50 03/03/20 14:00 Temperature 97.5 F L Pulse Rate Pulse Rate [Brachial] 90 Respiratory Rate 20 Blood Pressure [Left Arm] 224/110 198/88 Blood Pressure [Right Arm] O2 Sat by Pulse Oximetry 99 97 03/03/20 14:16 03/03/20 15:16 03/03/20 16:00 Temperature 97.6 F Pulse Rate Pulse Rate [Brachial] 102 H Respiratory Rate 20 18 18 Blood Pressure [Left Arm] 202/88 Blood Pressure [Right Arm] O2 Sat by Pulse Oximetry 95 03/03/20 16:10 03/03/20 17:35 03/03/20 20:00 Temperature 97.6 F Pulse Rate Pulse Rate [Brachial] 80 99 H Respiratory Rate 22 Blood Pressure [Left Arm] 212/80 218/86 Blood Pressure [Right Arm] 191/84 182/87 O2 Sat by Pulse Oximetry 97 03/03/20 21:30 03/03/20 21:34 03/03/20 22:34 Temperature Pulse Rate 80 Pulse Rate [Brachial] Respiratory Rate 20 18 Blood Pressure [Left Arm] Blood Pressure [Right Arm] O2 Sat by Pulse Oximetry 93 L 03/04/20 00:00 03/04/20 04:00 03/04/20 05:18 Temperature 98.8 F 98.2 F Pulse Rate Pulse Rate [Brachial] 97 H 93 H Respiratory Rate 14 12 20 Blood Pressure [Left Arm] Blood Pressure [Right Arm] 186/89 215/96 O2 Sat by Pulse Oximetry 95 98 03/04/20 06:00 03/04/20 06:18 03/04/20 08:00 Temperature 97.5 F L Pulse Rate Pulse Rate [Brachial] 105 H Respiratory Rate 18 20 Blood Pressure [Left Arm] 147/71 Blood Pressure [Right Arm] 156/70 O2 Sat by Pulse Oximetry 96 03/04/20 12:00 Temperature 98.0 F Pulse Rate Pulse Rate [Brachial] 96 H Respiratory Rate 22 Blood Pressure [Left Arm] 147/77 Blood Pressure [Right Arm] O2 Sat by Pulse Oximetry 99 Labs: Laboratory Last Values WBC 10.2 X10^3/uL (3.6-10.0) H 03/04/20 05:35 RBC 3.91 X10^6/uL (3.5-5.4) 03/04/20 05:35 Hgb 10.8 g/dL (12.0-16.0) L 03/04/20 05:35 Hct 33.5 % (36.0-47.0) L 03/04/20 05:35 MCV 85.6 fL (80.0-100.0) 03/04/20 05:35 MCH 27.5 pg (27.0-34.0) 03/04/20 05:35 MCHC 32.1 g/dL (33.0-35.0) L 03/04/20 05:35 RDW 15.7 % (11.6-16.5) 03/04/20 05:35 Plt Count 379 X10^3/uL (150.0-450.0) 03/04/20 05:35 MPV 7.6 fL (7.4-11.0) 03/04/20 05:35 Neut % (Auto) 74.5 % (42.0-75.0) 03/04/20 05:35 Lymph % (Auto) 15.0 % (21.0-51.0) L 03/04/20 05:35 [place] % (Auto) 7.5 % (0.0-13.0) 03/04/20 05:35 Eos % (Auto) 2.6 % (0.9-2.9) 03/04/20 05:35 Baso % (Auto) 0.4 % (0.2-1.0) 03/04/20 05:35 Neut # (Auto) 7.6 x10^3/uL (2.2-4.8) H 03/04/20 05:35 Lymph # (Auto) 1.5 X10^3/uL (1.3-2.9) 03/04/20 05:35 [place] # (Auto) 0.8 x10^3/uL (0.3-0.8) 03/04/20 05:35 Eos # (Auto) 0.3 x10^3/uL (0.0-0.2) H 03/04/20 05:35 Baso # (Auto) 0.0 X10^3/uL (0.0-0.1) 03/04/20 05:35 Absolute Nucleated RBC 0.1 /100WBC 03/04/20 05:35 Sample Site Rrad 02/29/20 11:00 ABG pH 7.260 (7.35-7.45) L 02/29/20 11:00 ABG pCO2 59.0 mmHg (35.0-45.0) H* 02/29/20 11:00 ABG pO2 114.0 mmHg (80.0-100.0) H 02/29/20 11:00 ABG HCO3 26.5 mmol/L (22-26) H 02/29/20 11:00 ABG O2 Saturation 98.0 % (90-100) 02/29/20 11:00 ABG Base Excess -1.5 mmol/L (-2.0-2.0) 02/29/20 11:00 Christos Test Postive 02/29/20 11:00 A-a Gradient Not Reportable 02/29/20 11:00 FiO2 45 02/29/20 11:00 Blood Gas Comments Hard stick sd 02/29/20 11:00 Sodium 140 mmol/L (136-145) 03/04/20 05:35 Corrected Sodium 141 mmol/L (136-145) 03/04/20 05:35 Potassium 4.3 mmol/L (3.5-5.1) 03/04/20 05:35 Chloride 103 mmol/L (98-107) 03/04/20 05:35 Carbon Dioxide 32.8 mmol/L (21-32) H 03/04/20 05:35 BUN 47 mg/dL (7-18) H 03/04/20 05:35 Creatinine 1.69 mg/dL (0.55-1.02) H 03/04/20 05:35 Est GFR (MDRD) Af Amer 39 (>60) L 03/04/20 05:35 Est GFR (MDRD) Non-Af 32 (>60) L 03/04/20 05:35 Glucose 129 mg/dL (65-99) H 03/04/20 05:35 POC Glucose (mg/dL) 135 mg/dL (65-99) H 03/04/20 11:46 Calcium 8.7 mg/dL (8.5-10.1) 03/04/20 05:35 Corrected Calcium 9.8 mg/dL (8.5-10.1) 03/01/20 05:25 Total Bilirubin 0.20 mg/dL (0.2-1.0) 03/01/20 05:25 AST 26 Units/L (15-37) 03/01/20 05:25 ALT 18 Units/L (12-78) 03/01/20 05:25 Alkaline Phosphatase 60 Units/L (46-116) 03/01/20 05:25 Creatine Kinase 94 Units/L (26-192) 02/29/20 04:23 CK-MB (CK-2) 3.5 ng/mL (0-4.0) 02/29/20 04:23 CK/CKMB % Calc 3.7 % (<4) 02/29/20 04:23 Troponin I < 0.02 ng/mL (0-1.5) 02/29/20 04:23 Total Protein 6.8 g/dL (6.4-8.2) 03/01/20 05:25 Albumin 2.7 g/dL (3.4-5.0) L 03/01/20 05:25 Globulin 4.1 g/dL (2.5-4.5) 03/01/20 05:25 Albumin/Globulin Ratio 0.7 Ratio (1.1-2.1) L 03/01/20 05:25 Specimen Type Clean catch urine 03/02/20 15:51 Urine Color Yellow (YELLOW) 03/02/20 15:51 Urine Appearance Cloudy (CLEAR) 03/02/20 15:51 Urine pH 5.0 (5.0 - 8.0) 03/02/20 15:51 Ur Specific [place] 1.010 (1.000-1.030) 03/02/20 15:51 Urine Protein 4+ (NEGATIVE) 03/02/20 15:51 Urine Glucose (UA) Negative (NEGATIVE) 03/02/20 15:51 Urine Ketones Negative (NEGATIVE) 03/02/20 15:51 Urine Occult Blood 1+ (NEGATIVE) 03/02/20 15:51 Urine Nitrite Positive (NEGATIVE) 03/02/20 15:51 Urine Bilirubin Negative (NEGATIVE) 03/02/20 15:51 Urine Urobilinogen Normal (NORMAL) 03/02/20 15:51 Ur Leukocyte Esterase 2+ (NEGATIVE) 03/02/20 15:51 Urine RBC 3-5 /HPF (0-3) A 03/02/20 15:51 Urine WBC 10-20 /HPF (0-5) A 03/02/20 15:51 Ur Squamous Epith Cells Few /HPF (NEGATIVE) 03/02/20 15:51 Amorphous Sediment 1+ /HPF (NEGATIVE) 02/29/20 04:42 Urine Bacteria 1+ /HPF (NEGATIVE) 03/02/20 15:51 Ur Culture Indicated? Yes/culture set up 03/02/20 15:51 SARS-CoV-2 (PCR) Negative (NEGATIVE) 02/29/20 08:54 Reason For Visit: SOB Discharge Date Discharge Date: 03/04/20 Discharge Diagnosis All Active Problems (Updated 03/06/20 @ 22:15 by Loly Carey) Acute respiratory failure with hypoxia and hypercapnia (Acute) Acute UTI (Acute) Acute hyperkalemia (Acute) Hallucination (Chronic) Hyperkalemia (Acute) Chronic congestive heart failure (Acute) Chronic kidney disease (CKD) (Acute) Diabetes mellitus (Acute) COPD with exacerbation (Acute) Anemia (Acute) Hypercapnemia (Acute) Respiratory failure, acute (Acute) CKD (chronic kidney disease) stage 4, GFR 15-29 ml/min (Chronic) 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 Pt is to keep follow up appointment as instructed and take medications as ordered. Discharge Medications Discharge Medications: oxycodone Allergy (Verified 01/15/20 22:23) CONTINUE taking the following medications metolazone 5 mg PO DAILY 02/29/20 [History] New Prescriptions cephalexin 500 mg PO BID 7 Days #14 cap 03/04/20 [Rx] hydralazine 25 mg PO BID 30 Days #60 tab 03/04/20 [Rx] Follow up and Referral Follow Up: 1 Week (PCP) Discharge Disposition Discharge Disposition: Home Discharge Condition: Stable
== END 2020-03-04 14:45 | disposition home health service (06) | DRG 189 ==
LOC: ER 04:09 → OBS 07:27 → MED/SURG 11:27
PROVIDERS: ADMIT Internal Medicine; ATTEND Internal Medicine
DX: E66.01 Morbid (severe) obesity due to excess calories; M25.561 Pain in right knee; E87.5 Hyperkalemia; R26.81 Unsteadiness on feet; I13.0 Hypertensive heart and chronic kidney disease with heart failure and stage 1 through stage 4 chronic kidney disease, or unspecified chronic kidney disease; J44.1 Chronic obstructive pulmonary disease with (acute) exacerbation; Z20.828 Contact with and (suspected) exposure to other viral communicable diseases; D50.9 Iron deficiency anemia, unspecified; J96.02 Acute respiratory failure with hypercapnia; E11.22 Type 2 diabetes mellitus with diabetic chronic kidney disease; N39.0 Urinary tract infection, site not specified; B96.20 Unspecified Escherichia coli [E. coli] as the cause of diseases classified elsewhere; I25.10 Atherosclerotic heart disease of native coronary artery without angina pectoris; K21.9 Gastro-esophageal reflux disease without esophagitis; N18.9 Chronic kidney disease, unspecified

== ENCOUNTER 2020-04-03 11:54 | Inpatient (IN) ==
--- NOTE | 2020-04-03 12:13 | DR.GENAD ---
HPI Time Seen Time Seen by Provider: 04/03/20 12:05 HPI Comment HPI Comment: PATIENT IS 65YR OLD FEMALE IN ER VIA EMS WITH LEFT SIDED WEAKNESS AND SLURRED SPEECH. WHEN EMS ARRIVE, THESE SYMPTOMS HAVE RESOLVED. PATIENT LAST SEEN IN HER USUAL STATE OF HEALTH LAST NIGHT. IN ER PATIENT COMPLAINING SOB, L OWER BACK PAIN, CHEST TIGHTNESS AND GENERALIZED WEAKNESS. NO FEVER, DYSURIAL, DIARRHEA, VOMITING OR NAUSEA. HISTORY DM, HTN, CHF AND PREVIOUS CVA. PATIENT HAVE LIMITED MOBILITY AND SHE SAID GETTING OUT OF BED IS DECREASING PAST 2 DAYS. Complaint/Symptoms Chief Complaint Doctors Comments: LEFT SIDED WEAKNESS, SLURRED SPEACH NOTED TODAY. INCREASIG SOB AND GENERALIZED WEAKNESS. COVID-19 Coronavirus risk:travel/contact w/high risk person: No Has patient experienced Coronavirus symptoms: No Nurses notes reviewed Nurses Notes Review: Yes Source History Provided: Patient Mode of Arrival Mode of Arrival: EMS Timing Came on: Suddenly Duration Duration: Constant Duration: Hours Severity Severity: Moderate Modifying Factors Worsens:: EXERTION Improves:: REST. Associated Signs and Symptoms Associated Signs and Symptoms: GENERALIZED WEAKNESS. Other History Other History: CHF, DM, HTN. PMH PMH Past Medical History: Anxiety, CHF, Coronary Artery Disease, Depression, Diabetes, GERD, Hypertension and Hypothyroidism Past Surgical History: Yes Surgical History: Abdominal Surgery Family History Family Medical History: Diabetes Mellitus and [place] Social History Do you use any recreational Drugs:: No ROS Review of Systems Constitutional: See HPI, Weakness and Fatigue; negative Fever Eyes: No Symptoms Reported and See HPI ENTM: See HPI and Nose Congestion; negative Ear Pain, Nose Discharge and Throat Pain Respiratoy: See HPI, Non-Productive Cough and Short of Breath; negative Wheezing Cardiovascular: See HPI, Chest Pain and Edema; negative Palpitations Gastrointestinal/Abdominal: No Symptoms Reported and See HPI; negative Abdominal Pain, Diarrhea, Nausea and Vomiting Genitourinary: No Symptoms Reported and See HPI; negative Dysuria Neurological: See HPI and Weakness; negative Headache and Dizziness Musculoskeletal: See HPI, Back Pain and Muscle Pain Integumentary: No Symptoms Reported, See HPI and Change in Color; negative Rash and Juandice Hematologic/Lymphatic: No Symptoms Reported, See HPI and Easy Bruising Endocrine: See HPI; negative Increased Hunger and Increased Urine Psychiatric: No Symptoms Reported and See HPI All Other Systems: Reviewed and Negative PE Vital Signs Vitals: Temperature 97.5 F Pulse Rate [Left Brachial] 75 Pulse Rate 74 Respiratory Rate 14 Blood Pressure [Right Arm] 99/53 Blood Pressure [Left Arm] 105/63 Blood Pressure [Right Arm] 160/76 Blood Pressure 107/49 O2 Sat by Pulse Oximetry 95 General Limitations: No Limitations General Appearance: Alert and In Distress Head Head Exam: Normal Inspection Eyes Eye exam: Normal Appearance and PERRL; negative Scleral Icterus and Conjunctival Injection ENT ENT Exam: Normal Exam, Normal Oropharynx, Normal External Ear Exam and TM's Normal Bilaterally External Ear Exam: Normal External Inspection; negative Mastoid Tenderness Nose Exam: Normal Nose Exam; negative Sinus Tenderness Mouth Exam: Normal Inspection; negative Lip Swelling and Tongue Swelling Throat Exam: Normal Inspection; negative Tonsillar Erythema, Tonsillomegaly and Tonsillar Exudate Neck Neck Exam: Normal Inspection and Trachea Midline; negative Tenderness and Lymphadenopathy Chest Chest Inspection: Normal Inspection and Symmetric Chest Wall Rise; negative Tenderness Respiratory Respiratory Exam: Respiratory Distress; negative Accessory Muscle Use and Chest Wall Tenderness Respiratory Exam: Bilateral: Wheezing and Bilateral: Rhonchi and Lower: Wheezing and Lower: Rhonchi Cardiovascular Cardiovascular Exam: Regular Rate, Normal Rhythm and Normal Heart Sounds; negative Systolic Murmur and Diastolic Murmur Abdominal Exam Abdominal Exam: Normal Inspection, Normal Bowel Sounds and Soft; negative Tenderness Extremities Extremities Exam: Normal Capillary Refill and Edema; negative Tenderness and Calf Tenderness Back Back Exam: Normal Inspection, (R) CVA Tenderness and Paraspinal Tenderness (LOWER BACK.) Neurologic Neurological Exam: Alert and Oriented X3; negative Motor Sensory Deficit Psychiatric Psychiatric Exam: Normal Affect and Normal Mood Skin Skin Exam: Other (EDEMA, BILATERAL.) MDM Additional Information Additional Information Obtained From: Old Records Differential Diagnosis Differential Diagnosis: TIA, AMS, CVA, HTN, UTI, SEPSIS, PNEUMONIA, CHF. COURSE Treatment Treatment: SEE ORDERS. CLONIDINE 0.2MG PO, SENIMET 10/100MG PO AND NORCO 7.5MG PO. PAIN AND BP IMPROVED. XANAX 1MG PO. Reevaluation 1st: Improved (BP IMPROVED.) Consultation Consultation Comments: DISCUSSED PATIENT WITH DR JO. SHE WILL ADMIT PATIENT. Education/Counseling Education/Counseling: Patient Educated On: Diagnosis ROR Labs Reviewed Laboratory Results Reviewed?: Yes Result Diagrams: 04/18/20 05:40 04/18/20 12:15 Laboratory: 04/03/20 12:32 Blood Blood Culture - Final 04/03/20 12:28 Blood Blood Culture - Final 04/03/20 21:22 Urine,Catheterized Urine Culture - Final Enterococcus Faecalis WBC 8.1 X10^3/uL (3.6-10.0) 04/03/20 12:32 RBC 3.61 X10^6/uL (3.5-5.4) 04/03/20 12:32 Hgb 9.9 g/dL (12.0-16.0) L 04/03/20 12:32 Hct 31.9 % (36.0-47.0) L 04/03/20 12:32 MCV 88.4 fL (80.0-100.0) 04/03/20 12:32 MCH 27.5 pg (27.0-34.0) 04/03/20 12:32 MCHC 31.1 g/dL (33.0-35.0) L 04/03/20 12:32 RDW 16.8 % (11.6-16.5) H 04/03/20 12:32 Plt Count 253 X10^3/uL (150.0-450.0) 04/03/20 12:32 MPV 7.3 fL (7.4-11.0) L 04/03/20 12:32 Neut % (Auto) 74.5 % (42.0-75.0) 04/03/20 12:32 Lymph % (Auto) 15.1 % (21.0-51.0) L 04/03/20 12:32 [place] % (Auto) 7.5 % (0.0-13.0) 04/03/20 12:32 Eos % (Auto) 2.3 % (0.9-2.9) 04/03/20 12:32 Baso % (Auto) 0.6 % (0.2-1.0) 04/03/20 12:32 Neut # (Auto) 6.1 x10^3/uL (2.2-4.8) H 04/03/20 12:32 Lymph # (Auto) 1.2 X10^3/uL (1.3-2.9) L 04/03/20 12:32 [place] # (Auto) 0.6 x10^3/uL (0.3-0.8) 04/03/20 12:32 Eos # (Auto) 0.2 x10^3/uL (0.0-0.2) 04/03/20 12:32 Baso # (Auto) 0.1 X10^3/uL (0.0-0.1) 04/03/20 12:32 Absolute Nucleated RBC 0.0 /100WBC 04/03/20 12:32 Sample Site Rra 04/04/20 02:38 ABG pH 7.080 (7.35-7.45) L* 04/04/20 02:38 ABG pCO2 > 115.0 mmHg (35.0-45.0) H* 04/04/20 02:38 ABG pO2 77.0 mmHg (80.0-100.0) L 04/04/20 02:38 ABG HCO3 Not Reportable 04/04/20 02:38 ABG O2 Saturation Not Reportable 04/04/20 02:38 ABG Base Excess Not Reportable 04/04/20 02:38 Christos Test Pos 04/04/20 02:38 A-a Gradient Not Reportable 04/04/20 02:38 FiO2 40.0 04/04/20 02:38 Blood Gas Comments Pt raymond well eb 04/04/20 02:38 Sodium 148 mmol/L (136-145) H 04/03/20 12:32 Corrected Sodium TNP 04/03/20 12:32 Potassium 4.6 mmol/L (3.5-5.1) 04/03/20 12:32 Chloride 109 mmol/L (98-107) H 04/03/20 12:32 Carbon Dioxide 35.2 mmol/L (21-32) H 04/03/20 12:32 BUN 47 mg/dL (7-18) H 04/03/20 12:32 Creatinine 2.61 mg/dL (0.55-1.02) H 04/03/20 12:32 Est GFR (MDRD) Af Amer 24 (>60) L 04/03/20 12:32 Est GFR (MDRD) Non-Af 19 (>60) L 04/03/20 12:32 Glucose 97 mg/dL (65-99) 04/03/20 12:32 POC Glucose (mg/dL) 116 mg/dL (65-99) H 04/03/20 21:59 Lactic Acid 0.7 mmol/L (0.4-2.0) 04/03/20 12:32 Calcium 8.9 mg/dL (8.5-10.1) 04/03/20 12:32 Corrected Calcium 9.9 mg/dL (8.5-10.1) 04/03/20 12:32 Total Bilirubin 0.20 mg/dL (0.2-1.0) 04/03/20 12:32 AST 34 Units/L (15-37) 04/03/20 12:32 ALT 8 Units/L (12-78) L 04/03/20 12:32 Alkaline Phosphatase 58 Units/L (46-116) 04/03/20 12:32 Creatine Kinase 58 Units/L (26-192) 04/03/20 22:40 CK-MB (CK-2) 2.9 ng/mL (0-4.0) 04/03/20 22:40 CK/CKMB % Calc 5.0 % (<4) 04/03/20 22:40 Troponin I 0.09 ng/mL (0-1.5) 04/03/20 22:40 Total Protein 7.1 g/dL (6.4-8.2) 04/03/20 12:32 Albumin 2.7 g/dL (3.4-5.0) L 04/03/20 12:32 Globulin 4.4 g/dL (2.5-4.5) 04/03/20 12:32 Albumin/Globulin Ratio 0.6 Ratio (1.1-2.1) L 04/03/20 12:32 Specimen Type Catherized urine 04/03/20 21: Urine Color Yellow (YELLOW) 04/03/20 21: Urine Appearance Cloudy (CLEAR) 04/03/20 21: Urine pH 5.0 (5.0 - 8.0) 04/03/20: Ur Specific [place] 1.025 (1.000-1.030) 04/03/20 21: Urine Protein 4+ (NEGATIVE) 04/03/20 21: Urine Glucose (UA) Negative (NEGATIVE) 04/03/20 21: Urine Ketones Negative (NEGATIVE) 04/03/20: Urine Occult Blood 1+ (NEGATIVE) 04/03/20 21:22 Urine Nitrite Negative (NEGATIVE) 04/03/20 21: Urine Bilirubin Negative (NEGATIVE) 04/03/20 21: Urine Urobilinogen Normal (NORMAL) 04/03/20 21:22 Ur Leukocyte Esterase 2+ (NEGATIVE) 04/03/20 21:22 Urine RBC 0-2 /HPF (0-3) 04/03/20 21:22 Urine WBC 5-10 /HPF (0-5) A 04/03/20 21: Ur Squamous Epith Cells Few /HPF (NEGATIVE) 04/03/20 21:22 Urine Bacteria 2+ /HPF (NEGATIVE) 04/03/20 21:22 Coarse Granular Casts Few /HPF (NEGATIVE) 04/03/20 21: Urine Yeast Few /HPF (NEGATIVE) 04/03/20 21: Ur Culture Indicated? Yes/culture set up 04/03/20 21: XRAY XRAY Interpreted by: Radiologist (REPORT NOTED AND DISCUSSED WITH PATIENT) and Self EKG Rate: 72 [place]: Normal Rhythm: NSR Block: 1 Hypertrophy: None ST: Nonsp Opioid Opioid Risk Tool Age (Jose Luis box if 16-45): No History of Preadolescent Sexual Abuse: No Total: 0 Total Score Risk Category: Low Risk Copyright: [facility] predicting aberrant behaviors Diagnosis Discharge Problem: Abnormal cardiac enzyme level, Respiratory distress, Brain TIA AMS (altered mental status) Qualifiers: Altered mental status type: transient alteration of awareness Qualified Code(s): R40.4 - Transient alteration of awareness Hypertension Qualifiers: Hypertension type: essential hypertension Qualified Code(s): I10 - Essential (primary) hypertension Instructions Forms: Precautions for COVID19 Patient Portal Social Distancing
[2020-04-03 12:43] LABS: BASOPHILS # (AUTO) 0.1 X10^3/uL (0.0-0.1); BASOPHILS % (AUTO) 0.6 % (0.2-1.0); EOSINOPHILS # (AUTO) 0.2 x10^3/uL (0.0-0.2); EOSINOPHILS % (AUTO) 2.3 % (0.9-2.9); HEMATOCRIT 31.9 % (36.0-47.0); HEMOGLOBIN 9.9 g/dL (12.0-16.0); LYMPHOCYTES # (AUTO) 1.2 X10^3/uL (1.3-2.9); LYMPHOCYTES % (AUTO) 15.1 % (21.0-51.0); MEAN CORPUSCULAR HEMOGLOBIN 27.5 pg (27.0-34.0); MEAN CORPUSCULAR HGB CONC 31.1 g/dL (33.0-35.0); MEAN CORPUSCULAR VOLUME 88.4 fL (80.0-100.0); MEAN PLATELET VOLUME 7.3 fL (7.4-11.0); MONOCYTES # (AUTO) 0.6 x10^3/uL (0.3-0.8); MONOCYTES % (AUTO) 7.5 % (0.0-13.0); NEUTROPHILS # (AUTO) 6.1 x10^3/uL (2.2-4.8); NEUTROPHILS % (AUTO) 74.5 % (42.0-75.0); PLATELET COUNT 253 X10^3/uL (150.0-450.0); RED BLOOD COUNT 3.61 X10^6/uL (3.5-5.4); RED CELL DISTRIBUTION WIDTH 16.8 % (11.6-16.5); WHITE BLOOD COUNT 8.1 X10^3/uL (3.6-10.0)
[2020-04-03 12:58] LABS: LACTIC ACID 0.7 mmol/L (0.4-2.0)
[2020-04-03 12:59] LABS: BLOOD UREA NITROGEN 47 mg/dL (7-18); CALCIUM 8.9 mg/dL (8.5-10.1); CARBON DIOXIDE 35.2 mmol/L (21-32); CHLORIDE 109 mmol/L (98-107); CREATININE 2.61 mg/dL (0.55-1.02); SODIUM 148 mmol/L (136-145); TROPONIN I 0.22 ng/mL (0-1.5); eGFR NON BLACK RACES 19 (>60)
[2020-04-03 13:04] LABS: ALANINE AMINOTRANSFERASE 8 Units/L (12-78); ALBUMIN 2.7 g/dL (3.4-5.0); ALKALINE PHOSPHATASE 58 Units/L (46-116); ASPARTATE AMINO TRANSFERASE 34 Units/L (15-37); CKMB % 4.6 % (<4); COR CA(FOR HYPOALB) 9.9 mg/dL (8.5-10.1); CREATINE KINASE 70 Units/L (26-192); CREATINE KINASE MB 3.2 ng/mL (0-4.0); TOTAL PROTEIN 7.1 g/dL (6.4-8.2)
--- NOTE | 2020-04-03 13:17 | CT ---
HISTORYReason For Study history given shorter breast CAD hypertension CHF abdomenSTUDYHead CT noncontrastCOMPARISONHead CT June 18, 2019TECHNIQUE5 mm axial sections noncontrast are reviewed with coronal sagittal reformats and axial images reviewed at bone windows. Radiation dose reduction was achieved through individualized adjustment of kVP and/or mA, through adaptive statistical iterative reconstruction, and/or through automated tube current modulation.FINDINGSParanasal sinuses are clear. The orbits are normal. There are no sellar or suprasellar masses. The cortical sulci are symmetric. There is mild diffuse cortical atrophy. There are no extra-axial fluid collections or mass lesions. There is no parenchymal hemorrhage edema or mass effect. There is no evidence of acute or old CVA. The brainstem and cerebellum are normal. Coronal and sagittal reformats were reviewed with no additional findings noted. Mild vascular calcifications are seen in the cavernous portions of both internal carotid arteries. Coronal and sagittal reformats are reviewed with no additional findings. On review of axial imaging on bone windows the bony calvarium is normal. The paranasal sinuses are clear. The mastoid air cells middle ear cavities and IAC's are normal. When compared to the prior head CT June 18, 2019 there is no significant interval change.IMPRESSIONNo acute intracranial abnormalities. Bony calvarium is normal sinuses and skullbase are normal.Age-appropriate atrophy with no significant interval change when compared to the prior exam of June 18, 2019.Electronically signed by: NICOL PAZ (Apr 03, 2020 13:17:35)
--- NOTE | 2020-04-03 13:19 | RAD ---
HISTORYReason For Study shortness of breath hypertension CAD CHF abdomenSTUDYCHEST, 1 VIEWCOMPARISONPortable chest March 19, 2020.FINDINGSThe trachea is midline. The cardiac silhouette is enlarged but stable in size. A left subclavian port is in place tip in the superior vena cava. There is a small pleural effusion right lung base. No infiltrates are observed.. the bony thorax is unremarkable.IMPRESSIONStable cardiomegaly with new small pleural effusion but otherwise no signs of overt CHF and no significant change other than the new pleural effusion when compared to March 19, 2020Electronically signed by: NICOL PAZ (Apr 03, 2020 13:19:31)
[2020-04-03] MEDS ORDERED: CATAPRES TAB 0.2 MG PO ONE (16:05)
[2020-04-03 16:07] LABS: CKMB % 3.6 % (<4); CREATINE KINASE MB 2.8 ng/mL (0-4.0); TROPONIN I 0.2 ng/mL (0-1.5)
[2020-04-03] MEDS ORDERED: CATAPRES TAB 0.2 MG ONE (16:09)
[2020-04-03] MEDS ORDERED: XANAX PO ONE (16:10)
[2020-04-03] MEDS ORDERED: SINEMET (PLAIN) 10/100 MG PO ONE (16:10)
[2020-04-03] MEDS ORDERED: NORCO 7.5/325 MG TAB ONE (16:10)
[2020-04-03] MEDS ORDERED: NORCO 7.5/325 MG TAB PO ONE (16:10)
[2020-04-03] MEDS ORDERED: XANAX ONE (16:10)
[2020-04-03] MEDS ORDERED: ZOFRAN INJ 4 MG VIAL ONE (17:18)
[2020-04-03] MEDS ORDERED: ZOFRAN INJ 4 MG VIAL IVP ONE (17:20)
[2020-04-03 21:46] LABS: BILIRUBIN,URINE NEGATIVE (NEGATIVE); BLOOD/HEMOGLOBIN,URINE 1+ (NEGATIVE); GLUCOSE, URINE NEGATIVE (NEGATIVE); KETONES,URINE NEGATIVE (NEGATIVE); LEUKOCYTE ESTERASE ,URINE 2+ (NEGATIVE); NITRITES,URINE NEGATIVE (NEGATIVE); PROTEIN,URINE 4+ (NEGATIVE); UROBILINOGEN,URINE NORMAL (NORMAL)
[2020-04-03] MEDS: NYSTATIN POWDER TOP SCH (21:57)
[2020-04-03 21:58] LABS: COLOR,URINE YELLOW (YELLOW)
[2020-04-03 21:59] LABS: APPEARANCE,URINE CLOUDY (CLEAR); BACTERIA,URINE 2+ /HPF (NEGATIVE); RBC,URINE 0-2 /HPF (0-3); SQUAMOUS EPITHELIAL CELL,UR FEW /HPF (NEGATIVE)
[2020-04-03 22:00] LABS: COARSE GRANULAR CASTS,URINE FEW /HPF (NEGATIVE); YEAST,URINE FEW /HPF (NEGATIVE)
[2020-04-03 23:03] LABS: ABG PCO2 > 115.0 mmHg (35.0-45.0)
[2020-04-03 23:04] LABS: ABG ALLEN TEST POS
[2020-04-03 23:10] LABS: CREATINE KINASE MB 2.9 ng/mL (0-4.0); TROPONIN I 0.09 ng/mL (0-1.5)
[2020-04-04 01:40] LABS: ABG ALLEN TEST POS; ABG PCO2 > 115.0 mmHg (35.0-45.0)
[2020-04-04 02:43] LABS: ABG ALLEN TEST POS; ABG PCO2 > 115.0 mmHg (35.0-45.0)
[2020-04-04] MEDS ORDERED: NS 1000 ML 1,000 ML ONE (03:54)
[2020-04-04] MEDS ORDERED: DIPRIVAN PREMIX 1 GRAM IV 1,000 MG/100 ML VIAL ONE ×2 (04:11→06:04)
[2020-04-04] MEDS ORDERED: VERSED ONE (04:15)
[2020-04-04] MEDS ORDERED: DIPRIVAN VIAL ONE (04:15)
[2020-04-04] MEDS ORDERED: QUELICIN (OR ANECTINE) ONE (04:15)
[2020-04-04] MEDS ORDERED: DIPRIVAN 1 GM IV PRN ×2 (04:20→06:18)
[2020-04-04] MEDS ORDERED: NS 1000 ML 1,000 ML IV SCH (04:20)
[2020-04-04] MEDS: DIPRIVAN PREMIX 1 GRAM IV 1,000 MG/100 ML VIAL IV PRN ×3 (04:20→09:40)
--- NOTE | 2020-04-04 04:49 | RAD ---
HISTORYPATIENT INTUBATEDSTUDYCHEST, 1 [id number]/2020FINDINGSThe trachea is midline. Endotracheal tube now present with its tip 2.5 cm above the janeen. Left Port-A-Cath unchanged. The cardiac silhouette is enlarged.. The lungs are clear of acute consolidation. Small bilateral pleural effusions blunting the costophrenic angles.. The bony thorax is unremarkable.IMPRESSIONCardiomegaly with small bilateral pleural effusions.No significant change from previous 04/03/2020Electronically signed by: Ketan Curiel (Apr 04, 2020 04:49:09)
[2020-04-04 06:14] LABS: BASOPHILS % (AUTO) 0.5 % (0.2-1.0); EOSINOPHILS # (AUTO) 0.1 x10^3/uL (0.0-0.2); EOSINOPHILS % (AUTO) 1.3 % (0.9-2.9); HEMATOCRIT 35.5 % (36.0-47.0); HEMOGLOBIN 11.1 g/dL (12.0-16.0); LYMPHOCYTES # (AUTO) 0.8 X10^3/uL (1.3-2.9); LYMPHOCYTES % (AUTO) 8.9 % (21.0-51.0); MEAN CORPUSCULAR HEMOGLOBIN 27.9 pg (27.0-34.0); MEAN CORPUSCULAR HGB CONC 31.2 g/dL (33.0-35.0); MEAN CORPUSCULAR VOLUME 89.5 fL (80.0-100.0); MEAN PLATELET VOLUME 7.6 fL (7.4-11.0); MONOCYTES # (AUTO) 0.5 x10^3/uL (0.3-0.8); MONOCYTES % (AUTO) 5.6 % (0.0-13.0); NEUTROPHILS # (AUTO) 7.1 x10^3/uL (2.2-4.8); NEUTROPHILS % (AUTO) 83.7 % (42.0-75.0); PLATELET COUNT 220 X10^3/uL (150.0-450.0); RED BLOOD COUNT 3.97 X10^6/uL (3.5-5.4); WHITE BLOOD COUNT 8.5 X10^3/uL (3.6-10.0)
[2020-04-04 06:27] LABS: ABG BASE EXCESS 4.2 mmol/L (-2.0-2.0); ABG HCO3 28.4 mmol/L (22-26)
[2020-04-04 06:28] LABS: ABG ALLEN TEST POS
[2020-04-04 07:00] LABS: ALBUMIN 2.7 g/dL (3.4-5.0); CALCIUM 9.4 mg/dL (8.5-10.1); CARBON DIOXIDE 29.3 mmol/L (21-32); CKMB % 5.5 % (<4); COR CA(FOR HYPOALB) 10.4 mg/dL (8.5-10.1); CREATININE 2.89 mg/dL (0.55-1.02); MAGNESIUM 2.2 mg/dL (1.7-2.9); TOTAL PROTEIN 7.4 g/dL (6.4-8.2); TROPONIN I 0.34 ng/mL (0-1.5)
[2020-04-04 07:02] LABS: CREATINE KINASE MB 4.6 ng/mL (0-4.0)
[2020-04-04 07:26] LABS: BAND NEUTROPHILS % 3 % (0-10)
[2020-04-04 07:27] LABS: PLATELET MORPHOLOGY COMMENT NORMAL (NORMAL)
[2020-04-04] MEDS ORDERED: ROCEPHIN VIAL 1 GRAM 1 G in NS 100 ML IV + SPIKE MINIBAG* 100 ML IV SCH (08:12)
[2020-04-04] MEDS ORDERED: ROCEPHIN VIAL 1 GRAM IM ONE (09:34)
[2020-04-04] MEDS: ROCEPHIN 1 GRAM IV PREMIX 1 G/50 ML IV.SOLN. IV SCH (09:36)
[2020-04-04] MEDS: NYSTATIN POWDER TOP SCH ×2 (10:09→20:27)
--- NOTE | 2020-04-04 10:22 | DR.H&P ---
H&P History & Physical for Day of: H&P Date: 04/04/20 Chief Complaint Chief Complaint: AMS, slurred speech Allergies Allergies Allergy/AdvReac Type Severity Reaction Status Date / Time oxycodone Allergy Verified 04/03/20 12:08 History of Present Illness History of Present Illness: Ms. Palomares is a 65y/o female with multiple comorbidities was found to have altered mental status, weakness and slurred speech. In the ER, patient was noted to be alert and back to her baseline. CT head was negative. CXR showed stable cardiomegaly with new small pleural effusion. Patient was noted have O2 sats fluctuating so was placed on NC but still had drop in saturations so was placed on NRB. Labs showed troponin of 0.22 and 0.20, Cr: 2.61 Hgb 9.9. She was admitted for TIA and further monitoring. Overnight patient became more lethargic, ABG was done and it showed significant hypercapnia. Patient was placed on BiPAP and ABG was repeated but continued to show severe respiratory acidosis with no improvement in pCO2. Patient was not opening eyes, would flutter eyes with painful stimuli. She was not moving her extremities. It was decided to intubate patient so anesthesia was called and intubated patient. This morning, she is currently on FiO2 50% and on propofol drip. Labs: Hgb 11.1 , BUN/Cr: 47/2.89, K 5.4 Trop: 0.20, 0.09, 0.34 UA: suggestive of UTI Plan: wean off vent and extubate as per RT, patient was further switched to 35% FiO2 with PEEP 3, wean sedation and do breathing trial. Start Rocephin for UTI, continue telemetry. Resume home medications once extubated. If patient remains intubated then consider NGT for tube feeds and medications. Critical care time spent 31-74 mins for clinical assessment, reviewing labs/imaging, documentation and decision making. Past Medical History Past Medical History: Anxiety, CHF, Coronary Artery Disease, Depression, Diabetes, GERD, Hypertension and Hypothyroidism Additional Medical History: MORBID OBESITY; VITAMIN B12 DEFICIENCY; LUMBOSACAL RADICULOPATHY Past Surgical History Surgical History: Abdominal Surgery Family History Family Medical History: Diabetes Mellitus and GA Social History Does patient currently use any type of tobacco product: No Have you used tobacco products in the last 12 months: No Type of Tobacco Use: None Does any household member use tobacco: No Alcohol Use: None Drug Use: None Medications Home Medications: oxycodone Allergy (Verified 04/03/20 12:08) CONTINUE taking the following medications bumetanide 2 mg PO TID 04/03/20 [History] dicyclomine 20 mg PO QID 04/03/20 [History] hydralazine 50 mg PO BID 04/03/20 [History] hydrocodone-acetaminophen 7.5 tab PO BID 04/03/20 [History] insulin aspart U-100 [Novolog Flexpen U-100 Insulin] 1 unit SUBCUT PRN PRN 04/03/20 [History] Labs Result Diagrams: 04/04/20 05:55 04/04/20 05:55 Labs: 04/03/20 21:22 Urine,Catheterized Urine Culture - Preliminary Laboratory WBC 8.5 X10^3/uL (3.6-10.0) 04/04/20 05:55 RBC 3.97 X10^6/uL (3.5-5.4) 04/04/20 05:55 Hgb 11.1 g/dL (12.0-16.0) L 04/04/20 05:55 Hct 35.5 % (36.0-47.0) L 04/04/20 05:55 MCV 89.5 fL (80.0-100.0) 04/04/20 05:55 MCH 27.9 pg (27.0-34.0) 04/04/20 05:55 MCHC 31.2 g/dL (33.0-35.0) L 04/04/20 05:55 RDW 17.0 % (11.6-16.5) H 04/04/20 05:55 Plt Count 220 X10^3/uL (150.0-450.0) 04/04/20 05:55 Plt Count Comment Adequate (ADEQUATE) 04/04/20 05:55 MPV 7.6 fL (7.4-11.0) 04/04/20 05:55 Neut % (Auto) 83.7 % (42.0-75.0) H 04/04/20 05:55 Lymph % (Auto) 8.9 % (21.0-51.0) L 04/04/20 05:55 [place] % (Auto) 5.6 % (0.0-13.0) 04/04/20 05:55 Eos % (Auto) 1.3 % (0.9-2.9) 04/04/20 05:55 Baso % (Auto) 0.5 % (0.2-1.0) 04/04/20 05:55 Neut # (Auto) 7.1 x10^3/uL (2.2-4.8) H 04/04/20 05:55 Lymph # (Auto) 0.8 X10^3/uL (1.3-2.9) L 04/04/20 05:55 [place] # (Auto) 0.5 x10^3/uL (0.3-0.8) 04/04/20 05:55 Eos # (Auto) 0.1 x10^3/uL (0.0-0.2) 04/04/20 05:55 Baso # (Auto) 0.0 X10^3/uL (0.0-0.1) 04/04/20 05:55 Absolute Nucleated RBC 0.4 /100WBC 04/04/20 05:55 Total Counted 100 04/04/20 05:55 Neutrophils % (Manual) 81 % (39-76) H 04/04/20 05:55 Band Neutrophils % 3 % (0-10) 04/04/20 05:55 Lymphocytes % (Manual) 10 % (13-43) L 04/04/20 05:55 Monocytes % (Manual) 3 % (4-9) L 04/04/20 05:55 Eosinophils % (Manual) 3 % (0-6) 04/04/20 05:55 Plt Morphology Comment Normal (NORMAL) 04/04/20 05:55 RBC Morphology Normal (NORMAL) 04/04/20 05:55 PT 13.5 SECONDS (11.8-14.3) 04/04/20 05:55 INR Target Range - 04/04/20 05:55 INR 1.06 (0.8-1.3) 04/04/20 05:55 APTT 37.0 SECONDS (22.9-36.5) H 04/04/20 05:55 PTT Comment - 04/04/20 05:55 Sample Site Rrad 04/04/20 06:25 ABG pH 7.460 (7.35-7.45) H 04/04/20 06:25 ABG pCO2 40.0 mmHg (35.0-45.0) 04/04/20 06:25 ABG pO2 226.0 mmHg (80.0-100.0) H 04/04/20 06:25 ABG HCO3 28.4 mmol/L (22-26) H 04/04/20 06:25 ABG O2 Saturation 100.0 % (90-100) 04/04/20 06:25 ABG Base Excess 4.2 mmol/L (-2.0-2.0) H 04/04/20 06:25 Christos Test Pos 04/04/20 06:25 A-a Gradient 437.0 mmHg 04/04/20 06:25 FiO2 100.0 04/04/20 06:25 Blood Gas Comments Mayi abg well-mtf 04/04/20 06:25 Sodium 145 mmol/L (136-145) 04/04/20 05:55 Corrected Sodium 146 mmol/L (136-145) H 04/04/20 05:55 Potassium 5.4 mmol/L (3.5-5.1) H 04/04/20 05:55 Chloride 107 mmol/L (98-107) 04/04/20 05:55 Carbon Dioxide 29.3 mmol/L (21-32) 04/04/20 05:55 BUN 47 mg/dL (7-18) H 04/04/20 05:55 Creatinine 2.89 mg/dL (0.55-1.02) H 04/04/20 05:55 Est GFR (MDRD) Af Amer 21 (>60) L 04/04/20 05:55 Est GFR (MDRD) Non-Af 17 (>60) L 04/04/20 05:55 Glucose 128 mg/dL (65-99) H 04/04/20 05:55 POC Glucose (mg/dL) 116 mg/dL (65-99) H 04/03/20 21:59 Lactic Acid 0.7 mmol/L (0.4-2.0) 04/03/20 12:32 Calcium 9.4 mg/dL (8.5-10.1) 04/04/20 05:55 Corrected Calcium 10.4 mg/dL (8.5-10.1) H 04/04/20 05:55 Magnesium 2.2 mg/dL (1.7-2.9) 04/04/20 05:55 Total Bilirubin 0.40 mg/dL (0.2-1.0) 04/04/20 05:55 AST 57 Units/L (15-37) H 04/04/20 05:55 ALT 11 Units/L (12-78) L 04/04/20 05:55 Alkaline Phosphatase 64 Units/L (46-116) 04/04/20 05:55 Creatine Kinase 84 Units/L (26-192) 04/04/20 05:55 CK-MB (CK-2) 4.6 ng/mL (0-4.0) H* 04/04/20 05:55 CK/CKMB % Calc 5.5 % (<4) 04/04/20 05:55 Troponin I 0.34 ng/mL (0-1.5) 04/04/20 05:55 Total Protein 7.4 g/dL (6.4-8.2) 04/04/20 05:55 Albumin 2.7 g/dL (3.4-5.0) L 04/04/20 05:55 Globulin 4.7 g/dL (2.5-4.5) H 04/04/20 05:55 Albumin/Globulin Ratio 0.6 Ratio (1.1-2.1) L 04/04/20 05:55 Specimen Type Catherized urine 04/03/20 21: Urine Color Yellow (YELLOW) 04/03/20 21: Urine Appearance Cloudy (CLEAR) 04/03/20 21: Urine pH 5.0 (5.0 - 8.0) 04/03/20 21: Ur Specific [place] 1.025 (1.000-1.030) 04/03/20 21: Urine Protein 4+ (NEGATIVE) 04/03/20 21: Urine Glucose (UA) Negative (NEGATIVE) 04/03/20 21: Urine Ketones Negative (NEGATIVE) 04/03/20 21: Urine Occult Blood 1+ (NEGATIVE) 04/03/20 21: Urine Nitrite Negative (NEGATIVE) 04/03/20: Urine Bilirubin Negative (NEGATIVE) 04/03/20 21: Urine Urobilinogen Normal (NORMAL) 04/03/20 21:22 Ur Leukocyte Esterase 2+ (NEGATIVE) 04/03/20 21:22 Urine RBC 0-2 /HPF (0-3) 04/03/20 21:22 Urine WBC 5-10 /HPF (0-5) A 04/03/20 21:22 Ur Squamous Epith Cells Few /HPF (NEGATIVE) 04/03/20 21:22 Urine Bacteria 2+ /HPF (NEGATIVE) 04/03/20 21:22 Coarse Granular Casts Few /HPF (NEGATIVE) 04/03/20 21:22 Urine Yeast Few /HPF (NEGATIVE) 04/03/20 21:22 Ur Culture Indicated? Yes/culture set up 04/03/20 21:22 Review of Systems Constitutional: Weakness Eyes: No Symptoms Reported ENT: No Symptoms Reported Respiratory: Shortness of Breath and SOB with Excertion Cardiovascular: Edema Gastrointestinal: No Symptoms Reported Musculoskeletal: No Symptoms Reported Skin: No Symptoms Reported Neurological: Weakness, Change in Speech and Confusion Physical Exam Vital Signs: Temperature 97.5 F Pulse Rate [Left Brachial] 80 Pulse Rate 74 Respiratory Rate 16 Blood Pressure [Right Arm] 97/67 Blood Pressure [Left Arm] 105/63 Blood Pressure [Right Arm] 160/76 Blood Pressure 107/49 O2 Sat by Pulse Oximetry 96 Oriented: Unable to test Throat: Other (ETT noted ) Respiratory: Diminished Throughout Cardiovascular: Normal and Edema Auscultation: Bowel Sounds: Normal Palpation: Normal Tenderness: Normal Skin: Normal Psychiatric: Other (sedated) Speech Pattern: Artificially Ventilated (intubated ) Assessment/Plan (1) Acute on chronic respiratory failure with hypoxia and hypercapnia: Status: Acute (2) Endotracheally intubated: Status: Acute (3) Abnormal cardiac enzyme level: Status: Acute (4) AMS (altered mental status): Qualifiers: Altered mental status type: transient alteration of awareness Qualified Code(s): R40.4 - Transient alteration of awareness Status: Acute (5) Acute on chronic renal failure: Status: Acute (6) Hyperkalemia: Status: Acute (7) Obesity hypoventilation syndrome: Status: Acute (8) Uncontrolled type 2 diabetes mellitus: Qualifiers: Glycemic state: with hyperglycemia Qualified Code(s): E11.65 - Type 2 diabetes mellitus with hyperglycemia Status: Acute (9) Hypertension associated with stage 2 chronic kidney disease due to type 2 diabetes mellitus: Status: Acute (10) COPD (chronic obstructive pulmonary disease): Status: Acute Review H&P Reviewed: Yes Patient was examined?: Yes
[2020-04-04] MEDS: LACRI-LUBE S.O.P. AFFEYE SCH ×2 (10:33→20:26)
[2020-04-04] MEDS: HEPARIN SODIUM INJ 5000 UNITS SC SCH ×2 (13:44→20:25)
[2020-04-04] MEDS ORDERED: TORADOL 30 MG VIAL IVP PRN (15:39)
[2020-04-04] MEDS ORDERED: TORADOL 30 MG VIAL ONE (15:55)
[2020-04-04] MEDS: PROTONIX INJ 40 MG VIAL IVP SCH (16:14)
[2020-04-04 16:41] LABS: ABG BASE EXCESS 2.6 mmol/L (-2.0-2.0)
[2020-04-04 16:42] LABS: ABG ALLEN TEST POS; ABG HCO3 30.2 mmol/L (22-26)
[2020-04-04] MEDS ORDERED: NS 500 ML IV 500 ML IV ONE ×3 (18:10→21:06)
[2020-04-04] MEDS: NS 1000 ML 1,000 ML IV SCH ×2 (18:49→23:03)
[2020-04-04] MEDS ORDERED: D50W ABBOJECT SYR ONE (22:12)
[2020-04-04] MEDS ORDERED: D50W ABBOJECT SYR IV ONE (22:14)
[2020-04-04] MEDS: D5 NS 1000 ML 1,000 ML IV SCH (22:50)
[2020-04-04] MEDS ORDERED: D5 NS 1000 ML 1,000 ML IV SCH (23:45)
[2020-04-04] MEDS ORDERED: D5 NS 1000 ML 1,000 ML IV ONE (23:48)
[2020-04-05] MEDS ORDERED: D50W ABBOJECT SYR ONE ×3 (00:59→16:50)
[2020-04-05] MEDS ORDERED: D50W ABBOJECT SYR IV ONE (01:00)
[2020-04-05 01:14] LABS: ABG BASE EXCESS 4.2 mmol/L (-2.0-2.0)
[2020-04-05 01:15] LABS: ABG ALLEN TEST POS; ABG HCO3 32.2 mmol/L (22-26)
[2020-04-05] MEDS ORDERED: THIAMINE HCL INJ ONE (03:19)
[2020-04-05] MEDS ORDERED: THIAMINE HCL INJ IVP ONE (03:22)
--- NOTE | 2020-04-05 05:23 | RAD ---
HISTORYAMS ventilatorSTUDYAP [id number] cardiac enlargement, pulmonary vascular congestion and sm all stable pleural effusions. The endotracheal tube is no longer identified.IMPRESSIONNo change in ap pearance of heart or lungs. Apparent interval extubation.Electronically signed by: CHRISTEN JARA (Oc t 2019 05:23:13)
[2020-04-05 05:33] LABS: ABG BASE EXCESS 6.3 mmol/L (-2.0-2.0)
[2020-04-05 05:34] LABS: ABG ALLEN TEST POS
[2020-04-05 05:37] LABS: BASOPHILS # (AUTO) 0.1 X10^3/uL (0.0-0.1); EOSINOPHILS % (AUTO) 0.6 % (0.9-2.9); HEMATOCRIT 32.3 % (36.0-47.0); HEMOGLOBIN 10.2 g/dL (12.0-16.0); LYMPHOCYTES # (AUTO) 0.9 X10^3/uL (1.3-2.9); LYMPHOCYTES % (AUTO) 11.2 % (21.0-51.0); MEAN CORPUSCULAR HEMOGLOBIN 27.9 pg (27.0-34.0); MEAN CORPUSCULAR HGB CONC 31.6 g/dL (33.0-35.0); MEAN CORPUSCULAR VOLUME 88.3 fL (80.0-100.0); MEAN PLATELET VOLUME 7.8 fL (7.4-11.0); MONOCYTES # (AUTO) 0.7 x10^3/uL (0.3-0.8); MONOCYTES % (AUTO) 9.5 % (0.0-13.0); NEUTROPHILS % (AUTO) 77.7 % (42.0-75.0); PLATELET COUNT 222 X10^3/uL (150.0-450.0); RED BLOOD COUNT 3.66 X10^6/uL (3.5-5.4); RED CELL DISTRIBUTION WIDTH 16.7 % (11.6-16.5); WHITE BLOOD COUNT 7.7 X10^3/uL (3.6-10.0)
[2020-04-05 05:56] LABS: ALANINE AMINOTRANSFERASE 15 Units/L (12-78); ALBUMIN 2.3 g/dL (3.4-5.0); ALKALINE PHOSPHATASE 58 Units/L (46-116); ASPARTATE AMINO TRANSFERASE 48 Units/L (15-37); BLOOD UREA NITROGEN 49 mg/dL (7-18); CALCIUM 8.3 mg/dL (8.5-10.1); CHLORIDE 110 mmol/L (98-107); COR CA(FOR HYPOALB) 9.7 mg/dL (8.5-10.1); CREATININE 3.28 mg/dL (0.55-1.02); SODIUM 147 mmol/L (136-145); TOTAL PROTEIN 6.8 g/dL (6.4-8.2); eGFR NON BLACK RACES 15 (>60)
[2020-04-05] MEDS ORDERED: LR 1000 ML IV 1,000 ML IV ONE (07:14)
[2020-04-05] MEDS ORDERED: ALBUMIN HUMAN 25%- 100 ML 100 ML IV SCH (08:00)
[2020-04-05] MEDS: NYSTATIN POWDER TOP SCH ×2 (09:10→20:10)
[2020-04-05] MEDS: ROCEPHIN 1 GRAM IV PREMIX 1 G/50 ML IV.SOLN. IV SCH (09:10)
[2020-04-05] MEDS: PROTONIX INJ 40 MG VIAL IVP SCH (09:10)
[2020-04-05] MEDS: HEPARIN SODIUM INJ 5000 UNITS SC SCH ×2 (09:10→20:07)
[2020-04-05 09:21] VITALS: BMI 50.3
[2020-04-05] MEDS: D5 NS 1000 ML 1,000 ML IV SCH ×2 (15:14→16:27)
[2020-04-05] MEDS ORDERED: NS 500 ML IV 500 ML IV ONE (17:26)
[2020-04-06] MEDS: TORADOL 30 MG VIAL IVP PRN ×2 (02:20→18:24)
[2020-04-06] MEDS: D5 NS 1000 ML 1,000 ML IV SCH ×6 (04:38→22:51)
[2020-04-06 05:15] LABS: BASOPHILS % (AUTO) 0.4 % (0.2-1.0); EOSINOPHILS # (AUTO) 0.1 x10^3/uL (0.0-0.2); EOSINOPHILS % (AUTO) 1.2 % (0.9-2.9); HEMATOCRIT 28.3 % (36.0-47.0); LYMPHOCYTES # (AUTO) 0.9 X10^3/uL (1.3-2.9); MEAN CORPUSCULAR HEMOGLOBIN 27.9 pg (27.0-34.0); MEAN CORPUSCULAR HGB CONC 31.7 g/dL (33.0-35.0); MEAN CORPUSCULAR VOLUME 87.9 fL (80.0-100.0); MEAN PLATELET VOLUME 7.9 fL (7.4-11.0); MONOCYTES # (AUTO) 0.7 x10^3/uL (0.3-0.8); MONOCYTES % (AUTO) 12.5 % (0.0-13.0); NEUTROPHILS # (AUTO) 4.3 x10^3/uL (2.2-4.8); NEUTROPHILS % (AUTO) 70.9 % (42.0-75.0); PLATELET COUNT 208 X10^3/uL (150.0-450.0); RED BLOOD COUNT 3.22 X10^6/uL (3.5-5.4); RED CELL DISTRIBUTION WIDTH 16.9 % (11.6-16.5)
[2020-04-06 05:27] LABS: ALANINE AMINOTRANSFERASE 21 Units/L (12-78); ALBUMIN 2.3 g/dL (3.4-5.0); ALKALINE PHOSPHATASE 51 Units/L (46-116); ASPARTATE AMINO TRANSFERASE 77 Units/L (15-37); BLOOD UREA NITROGEN 44 mg/dL (7-18); CALCIUM 8.2 mg/dL (8.5-10.1); CARBON DIOXIDE 28.8 mmol/L (21-32); CHLORIDE 114 mmol/L (98-107); COR CA(FOR HYPOALB) 9.6 mg/dL (8.5-10.1); CREATININE 2.71 mg/dL (0.55-1.02); SODIUM 149 mmol/L (136-145); TOTAL PROTEIN 6.4 g/dL (6.4-8.2); eGFR NON BLACK RACES 19 (>60)
[2020-04-06 05:46] LABS: ABG BASE EXCESS 4.5 mmol/L (-2.0-2.0)
[2020-04-06 05:47] LABS: ABG ALLEN TEST POS; ABG HCO3 30.8 mmol/L (22-26)
--- NOTE | 2020-04-06 06:08 | RAD ---
HISTORYFollow-up congestive heart failureSTUDYChest AP [id number]/10/2020FINDINGSPatient is rotated to the right. There is a port present on the l eft. The heart is enlarged. Mild pulmonary venous congestion is present. No definite interstitial tom ma, alveolar edema, or alveolar infiltrates are identified. Small right pleural effusion is unchanged . Bony thorax is unremarkable.IMPRESSIONNo change cardiomegaly with mild pulmonary venous congestionN o change small right pleural effusionElectronically signed by: JACKSON DAVE (Apr 06, 2020 06:07:46)
[2020-04-06] MEDS ORDERED: ALBUMIN HUMAN 25%- 100 ML 100 ML ONE (07:17)
[2020-04-06] MEDS ORDERED: COREG TAB 12.5 MG PO SCH (09:00)
[2020-04-06] MEDS: ALBUMIN HUMAN 25%- 100 ML 100 ML IV SCH (09:08)
[2020-04-06] MEDS: HEPARIN SODIUM INJ 5000 UNITS SC SCH ×2 (09:08→20:36)
[2020-04-06] MEDS: PROTONIX INJ 40 MG VIAL IVP SCH (09:09)
[2020-04-06] MEDS: NYSTATIN POWDER TOP SCH ×2 (09:09→20:37)
[2020-04-06] MEDS: ROCEPHIN 1 GRAM IV PREMIX 1 G/50 ML IV.SOLN. IV SCH (09:10)
[2020-04-06] MEDS ORDERED: COREG TAB 12.5 MG PO ONE (17:44)
[2020-04-06] MEDS ORDERED: NS 500 ML IV 500 ML IV ONE (21:35)
[2020-04-06] MEDS ORDERED: NS 500 ML IV 500 ML IV PRN (21:45)
[2020-04-06] MEDS: COREG TAB 12.5 MG PO SCH (22:50)
[2020-04-07] MEDS ORDERED: ZESTRIL TAB 40 MG PO ONE (01:19)
[2020-04-07] MEDS ORDERED: ZESTRIL TAB 40 MG ONE (01:20)
[2020-04-07] MEDS ORDERED: CATAPRES TAB 0.2 MG PO ONE (03:36)
[2020-04-07] MEDS ORDERED: CATAPRES TAB 0.2 MG ONE (03:37)
[2020-04-07 05:24] LABS: BASOPHILS # (AUTO) 0.1 X10^3/uL (0.0-0.1); BASOPHILS % (AUTO) 0.8 % (0.2-1.0); EOSINOPHILS # (AUTO) 0.2 x10^3/uL (0.0-0.2); EOSINOPHILS % (AUTO) 3.6 % (0.9-2.9); HEMATOCRIT 33.7 % (36.0-47.0); HEMOGLOBIN 10.5 g/dL (12.0-16.0); LYMPHOCYTES # (AUTO) 0.7 X10^3/uL (1.3-2.9); LYMPHOCYTES % (AUTO) 10.8 % (21.0-51.0); MEAN CORPUSCULAR HEMOGLOBIN 27.6 pg (27.0-34.0); MEAN CORPUSCULAR HGB CONC 31.3 g/dL (33.0-35.0); MEAN CORPUSCULAR VOLUME 88.3 fL (80.0-100.0); MEAN PLATELET VOLUME 7.9 fL (7.4-11.0); MONOCYTES # (AUTO) 0.8 x10^3/uL (0.3-0.8); MONOCYTES % (AUTO) 11.6 % (0.0-13.0); NEUTROPHILS # (AUTO) 4.8 x10^3/uL (2.2-4.8); NEUTROPHILS % (AUTO) 73.2 % (42.0-75.0); PLATELET COUNT 198 X10^3/uL (150.0-450.0); RED BLOOD COUNT 3.81 X10^6/uL (3.5-5.4); RED CELL DISTRIBUTION WIDTH 16.7 % (11.6-16.5); WHITE BLOOD COUNT 6.6 X10^3/uL (3.6-10.0)
[2020-04-07 05:39] LABS: ALBUMIN 2.6 g/dL (3.4-5.0); CALCIUM 8.7 mg/dL (8.5-10.1); CARBON DIOXIDE 26.5 mmol/L (21-32); COR CA(FOR HYPOALB) 9.8 mg/dL (8.5-10.1); CREATININE 2.18 mg/dL (0.55-1.02); TOTAL PROTEIN 6.9 g/dL (6.4-8.2)
[2020-04-07] MEDS: TORADOL 30 MG VIAL IVP PRN (06:01)
[2020-04-07] MEDS: COREG TAB 12.5 MG PO SCH ×2 (08:15→21:42)
[2020-04-07] MEDS ORDERED: LASIX IVP ONE (08:28)
[2020-04-07] MEDS ORDERED: ARIPIPRAZOLE 30 MG PO SCH (09:00)
[2020-04-07] MEDS ORDERED: COREG TAB 12.5 MG PO SCH (09:00)
[2020-04-07] MEDS: ROCEPHIN 1 GRAM IV PREMIX 1 G/50 ML IV.SOLN. IV SCH (09:00)
[2020-04-07] MEDS ORDERED: MACROBID CAP 100 MG EXT REL PO SCH (09:00)
[2020-04-07] MEDS: ABILIFY PO SCH (09:07)
[2020-04-07] MEDS: HEPARIN SODIUM INJ 5000 UNITS SC SCH ×2 (09:09→21:48)
[2020-04-07] MEDS: ALBUMIN HUMAN 25%- 100 ML 100 ML IV SCH (09:10)
[2020-04-07] MEDS: NORCO 7.5/325 MG TAB PO SCH ×2 (09:13→21:50)
[2020-04-07] MEDS: NYSTATIN POWDER TOP SCH ×2 (09:15→21:49)
[2020-04-07] MEDS: PROTONIX INJ 40 MG VIAL IVP SCH (09:16)
[2020-04-07] MEDS: SINEMET (PLAIN) 10/100 MG PO SCH ×2 (09:17→21:52)
[2020-04-07] MEDS: SYNTHROID 125 mcg TAB PO SCH (09:17)
[2020-04-07] MEDS: XANAX PO SCH ×2 (09:18→21:51)
[2020-04-07] MEDS: NEURONTIN CAP 400 MG PO SCH (09:25)
[2020-04-07] MEDS: APRESOLINE INJ 20 MG VIAL IVP PRN ×2 (09:25→21:22)
[2020-04-07] MEDS: ZOSYN VIAL 3.375 GRAMS 3.375 G in NS 100 ML IV + SPIKE MINIBAG* 100 ML IV SCH ×3 (11:00→21:50)
--- NOTE | 2020-04-07 13:48 | PCM.PROG ---
Progress Note Progress Note for Day of Date of Exam: 04/07/20 Subjective Subjective: Patient seen at bedside, no overnight events. Patient remains on BiPAP with FiO2 35%. She is able to nod to questions, able to follow commands. She was taken off BiPAP for a little bit during they day yesterday. Patient is being treated for acute on chronic respiratory failure due to pneumonia and underlying OHS/COPD. Her blood glucose is improved. She is currently on D5 IVF @ 150cc/hr. She is also receiving albumin @ 100cc/hr. Patient's UOP has improved. Overnight, patient has had elevated BP. She was given one dose of lisinopril and Clonidine. This morning, SBP is around 200. Labs: Hgb 10.5 s/p 1 unit PRBC, Na 149, Cl 114, BUN/Cr: 37/2.18 Glucose 202 CXR yesterday: mild pulmonary congestion, small pleural effusions Sputum: [place], Urine Cx: E faecalis Plan: add hydralazine 10 mg IV prn, one dose now. Continue Coreg, will resume home medications including pain medicine and anxiety medications. Patient appears to be anxious. Will DC Rocephin, start Zosyn to cover both pathogens. Will give one dose of lasix IV 40 mg. Monitor UOP, decrease IVF to 75cc/hr, continue albumin. Monitor AM labs. Will add SSI prn, FSBG have been > 150. Will order echo (last one in November), patient has recurrent admissions for CHF exacerbations. Eval LV function and IVC dilation. Switch from BiPAP to hi-flow or nasal canula and see how patient tolerates. Critical care time spent 31-74 mins for clinical assessment, reviewing labs/imaging, documentation and decision making. Past Medical Family Social History Past Med/Fam/Surg Hx: Changes noted (describe) Allergies: Allergies oxycodone Allergy (Verified 04/03/20 12:08) Review of Systems ROS: Changes notes (describe) Vital Signs and I&O's Vital Signs: Temperature 99.0 F Pulse Rate [Left Brachial] 72 Pulse Rate 74 Respiratory Rate 21 Blood Pressure [Right Arm] 153/65 Blood Pressure [Left Arm] 111/53 Blood Pressure [Right Arm] 160/76 Blood Pressure 107/49 O2 Sat by Pulse Oximetry 93 Intake and Output: Intake & Output 10/03/1604/05/20 04/06/20 04/07/20 23:59 23:59 23:59 23:59 Intake Total 1417 / 2117 2452 / 2777 2791 / 2935 2007 Output Total 495 / 517 675 / 735 1036 / 1070 657 / 657 Balance 922 / 1600 1777 / 2042 1755 / 1865 1351 / 1351 Physical Exam Oriented: Unable to test Throat: Other (on bipap) Respiratory: Generalized and Diminished Cardiovascular: Normal and Edema (b/l LE edema, facial and upper ext edema present) Auscultation: Bowel Sounds: Normal Tenderness: Normal Skin: Normal Musculoskeletal: Back:Thoracic, Back:Lumbar and Back:Paraspinous Psychiatric: Other (sedated) Mood Description: Anxious Affect: Normal Speech Pattern: Appropriate Laboratory and Diagnostics Result Diagrams: 04/07/20 04:07 04/07/20 04:07 Labs: 04/04/20 09:11 Sputum - Endotracheal Wash Sputum Culture - Final Klebsiella Pneumoniae 04/04/20 09:11 Sputum - Endotracheal Wash - Final 04/03/20 21:22 Urine,Catheterized Urine Culture - Final Enterococcus Faecalis 04/03/20 12:32 Blood Blood Culture - Preliminary 04/03/20 12:28 Blood Blood Culture - Preliminary Laboratory WBC 6.6 X10^3/uL (3.6-10.0) 04/07/20 04:07 RBC 3.81 X10^6/uL (3.5-5.4) 04/07/20 04:07 Hgb 10.5 g/dL (12.0-16.0) L 04/07/20 04:07 Hct 33.7 % (36.0-47.0) L 04/07/20 04:07 MCV 88.3 fL (80.0-100.0) 04/07/20 04:07 MCH 27.6 pg (27.0-34.0) 04/07/20 04:07 MCHC 31.3 g/dL (33.0-35.0) L 04/07/20 04:07 RDW 16.7 % (11.6-16.5) H 04/07/20 04:07 Plt Count 198 X10^3/uL (150.0-450.0) 04/07/20 04:07 Plt Count Comment Adequate (ADEQUATE) 04/04/20 05:55 MPV 7.9 fL (7.4-11.0) 04/07/20 04:07 Neut % (Auto) 73.2 % (42.0-75.0) 04/07/20 04:07 Lymph % (Auto) 10.8 % (21.0-51.0) L 04/07/20 04:07 [place] % (Auto) 11.6 % (0.0-13.0) 04/07/20 04:07 Eos % (Auto) 3.6 % (0.9-2.9) H 04/07/20 04:07 Baso % (Auto) 0.8 % (0.2-1.0) 04/07/20 04:07 Neut # (Auto) 4.8 x10^3/uL (2.2-4.8) 04/07/20 04:07 Lymph # (Auto) 0.7 X10^3/uL (1.3-2.9) L 04/07/20 04:07 [place] # (Auto) 0.8 x10^3/uL (0.3-0.8) 04/07/20 04:07 Eos # (Auto) 0.2 x10^3/uL (0.0-0.2) 04/07/20 04:07 Baso # (Auto) 0.1 X10^3/uL (0.0-0.1) 04/07/20 04:07 Absolute Nucleated RBC 0.1 /100WBC 04/07/20 04:07 Total Counted 100 04/04/20 05:55 Neutrophils % (Manual) 81 % (39-76) H 04/04/20 05:55 Band Neutrophils % 3 % (0-10) 04/04/20 05:55 Lymphocytes % (Manual) 10 % (13-43) L 04/04/20 05:55 Monocytes % (Manual) 3 % (4-9) L 04/04/20 05:55 Eosinophils % (Manual) 3 % (0-6) 04/04/20 05:55 Plt Morphology Comment Normal (NORMAL) 04/04/20 05:55 RBC Morphology Normal (NORMAL) 04/04/20 05:55 PT 13.5 SECONDS (11.8-14.3) 04/04/20 05:55 INR Target Range - 04/04/20 05:55 INR 1.06 (0.8-1.3) 04/04/20 05:55 APTT 37.0 SECONDS (22.9-36.5) H 04/04/20 05:55 PTT Comment - 04/04/20 05:55 Sample Site Rrad 04/06/20 05:43 ABG pH 7.380 (7.35-7.45) 04/06/20 05:43 ABG pCO2 52.0 mmHg (35.0-45.0) H* 04/06/20 05:43 ABG pO2 83.0 mmHg (80.0-100.0) 04/06/20 05:43 ABG HCO3 30.8 mmol/L (22-26) H* 04/06/20 05:43 ABG O2 Saturation 96.0 % (90-100) 04/06/20 05:43 ABG Base Excess 4.5 mmol/L (-2.0-2.0) H 04/06/20 05:43 Christos Test Pos 04/06/20 05:43 A-a Gradient 102.0 mmHg 04/06/20 05:43 FiO2 35.0 04/06/20 05:43 Blood Gas Comments Mayi abg well-mtf 04/06/20 05:43 Sodium 149 mmol/L (136-145) H 04/07/20 04:07 Corrected Sodium 151 mmol/L (136-145) H 04/07/20 04:07 Potassium 4.5 mmol/L (3.5-5.1) 04/07/20 04:07 Chloride 114 mmol/L (98-107) H 04/07/20 04:07 Carbon Dioxide 26.5 mmol/L (21-32) 04/07/20 04:07 BUN 37 mg/dL (7-18) H 04/07/20 04:07 Creatinine 2.18 mg/dL (0.55-1.02) H 04/07/20 04:07 Est GFR (MDRD) Af Amer 29 (>60) L 04/07/20 04:07 Est GFR (MDRD) Non-Af 24 (>60) L 04/07/20 04:07 Glucose 202 mg/dL (65-99) H 04/07/20 04:07 POC Glucose (mg/dL) 275 mg/dL (65-99) H 04/07/20 12:00 Lactic Acid 0.7 mmol/L (0.4-2.0) 04/03/20 12:32 Calcium 8.7 mg/dL (8.5-10.1) 04/07/20 04:07 Corrected Calcium 9.8 mg/dL (8.5-10.1) 04/07/20 04:07 Magnesium 2.2 mg/dL (1.7-2.9) 04/04/20 05:55 Total Bilirubin 0.30 mg/dL (0.2-1.0) 04/07/20 04:07 AST 75 Units/L (15-37) H 04/07/20 04:07 ALT 28 Units/L (12-78) 04/07/20 04:07 Alkaline Phosphatase 53 Units/L (46-116) 04/07/20 04:07 Creatine Kinase 84 Units/L (26-192) 04/04/20 05:55 CK-MB (CK-2) 4.6 ng/mL (0-4.0) H* 04/04/20 05:55 CK/CKMB % Calc 5.5 % (<4) 04/04/20 05:55 Troponin I 0.34 ng/mL (0-1.5) 04/04/20 05:55 Total Protein 6.9 g/dL (6.4-8.2) 04/07/20 04:07 Albumin 2.6 g/dL (3.4-5.0) L 04/07/20 04:07 Globulin 4.3 g/dL (2.5-4.5) 04/07/20 04:07 Albumin/Globulin Ratio 0.6 Ratio (1.1-2.1) L 04/07/20 04:07 Specimen Type Catherized urine 04/03/20 21: Urine Color Yellow (YELLOW) 04/03/20 21: Urine Appearance Cloudy (CLEAR) 04/03/20 21:22 Urine pH 5.0 (5.0 - 8.0) 04/03/20 21:22 Ur Specific [place] 1.025 (1.000-1.030) 04/03/20 21:22 Urine Protein 4+ (NEGATIVE) 04/03/20 21:22 Urine Glucose (UA) Negative (NEGATIVE) 04/03/20 21: Urine Ketones Negative (NEGATIVE) 04/03/20 21: Urine Occult Blood 1+ (NEGATIVE) 04/03/20 21:22 Urine Nitrite Negative (NEGATIVE) 04/03/20 21:22 Urine Bilirubin Negative (NEGATIVE) 04/03/20 21:22 Urine Urobilinogen Normal (NORMAL) 04/03/20 21:22 Ur Leukocyte Esterase 2+ (NEGATIVE) 04/03/20 21:22 Urine RBC 0-2 /HPF (0-3) 04/03/20 21:22 Urine WBC 5-10 /HPF (0-5) A 04/03/20 21: Ur Squamous Epith Cells Few /HPF (NEGATIVE) 04/03/20 21: Urine Bacteria 2+ /HPF (NEGATIVE) 04/03/20 21: Coarse Granular Casts Few /HPF (NEGATIVE) 04/03/20 21: Urine Yeast Few /HPF (NEGATIVE) 04/03/20 21: Ur Culture Indicated? Yes/culture set up 04/03/20 21:22 Blood Type O POSITIVE 04/06/20 13:00 Antibody Screen Negative 04/06/20 13:00 Crossmatch See Detail 04/06/20 13:00 Plan (1) Acute on chronic respiratory failure with hypoxia and hypercapnia: Status: Acute (2) Endotracheally intubated: Status: Acute (3) Abnormal cardiac enzyme level: Status: Acute (4) AMS (altered mental status): Status: Acute Qualifiers: Altered mental status type: transient alteration of awareness Qualified Code(s): R40.4 - Transient alteration of awareness (5) Acute on chronic renal failure: Status: Acute (6) Hyperkalemia: Status: Acute (7) Obesity hypoventilation syndrome: Status: Acute (8) Uncontrolled type 2 diabetes mellitus: Status: Acute Qualifiers: Glycemic state: with hyperglycemia Qualified Code(s): E11.65 - Type 2 diabetes mellitus with hyperglycemia (9) Hypertension associated with stage 2 chronic kidney disease due to type 2 diabetes mellitus: Status: Acute (10) COPD (chronic obstructive pulmonary disease): Status: Acute (11) Hypoglycemia: Status: Acute
[2020-04-07] MEDS: HumuLIN R SC PRN ×2 (17:01→21:49)
[2020-04-07] MEDS: D5 NS 1000 ML 1,000 ML IV SCH (21:13)
[2020-04-07] MEDS: ZOCOR TAB 40 MG PO SCH (21:51)
[2020-04-08] MEDS: D5 NS 1000 ML 1,000 ML IV SCH ×2 (01:35→14:08)
--- NOTE | 2020-04-08 04:28 | RAD ---
STUDY: CHEST, 1 VIEWCOMPARISON: April 06, 2020HISTORY: HYPOXIAFINDINGS:Left chemotherapy port is stable. Persistent global cardiomegaly is seen with findings suggesting mild mild degree of pulmonary edema. No definitive pleural effusion is seen. No evidence of pneumothorax.IMPRESSION:There is no significant change from prior study. Persistent cardiomegaly is seen with findings suggesting mild degree of pulmonary edema.Electronically signed by: Feliz Daigle (Apr 08, 2020 04:27:21)
[2020-04-08 05:35] LABS: ABG ALLEN TEST POS; ABG BASE EXCESS 3.6 mmol/L (-2.0-2.0); ABG HCO3 29.1 mmol/L (22-26)
[2020-04-08] MEDS: ZOSYN VIAL 3.375 GRAMS 3.375 G in NS 100 ML IV + SPIKE MINIBAG* 100 ML IV SCH ×3 (05:38→21:17)
[2020-04-08] MEDS: HumuLIN R SC PRN ×4 (05:40→20:35)
[2020-04-08 06:05] LABS: BASOPHILS % (AUTO) 0.8 % (0.2-1.0); EOSINOPHILS # (AUTO) 0.3 x10^3/uL (0.0-0.2); EOSINOPHILS % (AUTO) 4.4 % (0.9-2.9); HEMATOCRIT 32.3 % (36.0-47.0); HEMOGLOBIN 10.2 g/dL (12.0-16.0); LYMPHOCYTES # (AUTO) 0.9 X10^3/uL (1.3-2.9); LYMPHOCYTES % (AUTO) 15.5 % (21.0-51.0); MEAN CORPUSCULAR HEMOGLOBIN 27.5 pg (27.0-34.0); MEAN CORPUSCULAR HGB CONC 31.7 g/dL (33.0-35.0); MEAN CORPUSCULAR VOLUME 86.7 fL (80.0-100.0); MEAN PLATELET VOLUME 7.5 fL (7.4-11.0); MONOCYTES # (AUTO) 0.7 x10^3/uL (0.3-0.8); MONOCYTES % (AUTO) 12.2 % (0.0-13.0); NEUTROPHILS # (AUTO) 3.9 x10^3/uL (2.2-4.8); NEUTROPHILS % (AUTO) 67.1 % (42.0-75.0); PLATELET COUNT 194 X10^3/uL (150.0-450.0); RED BLOOD COUNT 3.73 X10^6/uL (3.5-5.4); RED CELL DISTRIBUTION WIDTH 16.8 % (11.6-16.5); WHITE BLOOD COUNT 5.9 X10^3/uL (3.6-10.0)
[2020-04-08 06:41] LABS: ALBUMIN 2.5 g/dL (3.4-5.0); CALCIUM 9.1 mg/dL (8.5-10.1); CARBON DIOXIDE 25.3 mmol/L (21-32); COR CA(FOR HYPOALB) 10.3 mg/dL (8.5-10.1); CREATININE 2.17 mg/dL (0.55-1.02); TOTAL PROTEIN 6.7 g/dL (6.4-8.2)
[2020-04-08] MEDS ORDERED: LASIX IVP SCH (09:00)
[2020-04-08] MEDS: PROTONIX INJ 40 MG VIAL IVP SCH (09:04)
--- NOTE | 2020-04-08 09:04 | PCM.PROG ---
Progress Note Progress Note for Day of Date of Exam: 04/08/20 Subjective Subjective: Patient seen at bedside, no overnight events. Patient has been on continuous BiPAP. She was placed on NC yesterday evening 5L but was not able to tolerate it. Her sats dropped and she seemed to have labored breathing so was placed back on BiPAP. She did not eat much yesterday. Labs: Hgb 10.2 BUN/Cr: 40/2.17 Na: 153 Cl: 116 Glucose: 199 Sputum: [place], Urine Cx: E faecalis AB.4/47/78/29 Sats 95% on FiO2 35% CXR: persistent cardiomegaly, mild pulmonary edema Plan: discussed with patient on being able to come off BiPAP and placed on NC, also discussed that if patient continues to require BiPAP then most likely will need intubation. Patient ok with intubation if needed and transfer to [facility] for higher level of care if that does happen. Patient verbalized understanding. Will try to take off BiPAP during the day and then use it at night. Give another dose of IV lasix 40 mg, monitor UOP. Continue Zosyn. Monitor AM labs. Encourage PO intake. Continue gentle hydration with D5 @ 75cc/hr. Patient did refuse to have echo done yesterday. Critical care time spent 31-74 mins for clinical assessment, reviewing labs/imaging, documentation and decision making. Past Medical Family Social History Past Med/Fam/Surg Hx: No changes since H&P Allergies: Allergies oxycodone Allergy (Verified 04/03/20 12:08) Review of Systems ROS: Changes notes (describe) Vital Signs and I&O's Vital Signs: Temperature 98.3 F Pulse Rate [Left Brachial] 61 Pulse Rate 74 Respiratory Rate 21 Blood Pressure [Right Arm] 166/71 Blood Pressure [Left Arm] 181/76 Blood Pressure [Right Arm] 160/76 Blood Pressure 107/49 O2 Sat by Pulse Oximetry 97 Intake and Output: Intake & Output 04/05/20 04/06/20 04/07/20 04/08/20 23:59 23:59 23:59 23:59 Intake Total 2452 / 2777 2791 / 2935 3586 / 3655 732 / 732 Output Total 675 / 735 1036 / 1070 1852 / 1916 552 / 552 Balance 1777 / 2042 1755 / 1865 1734 / 1739 180 / 180 Physical Exam Oriented: Unable to test (on BiPAP but patient able to understand and answer questions appropriately ) Nose: Normal Throat: Other (on bipap) Respiratory: Generalized and Diminished Cardiovascular: Normal and Edema (b/l LE edema, facial and upper ext edema present) Auscultation: Bowel Sounds: Normal Tenderness: Normal Skin: Bruising and Other (swelling of both upper ext ) Musculoskeletal: Back:Thoracic, Back:Lumbar and Back:Paraspinous Psychiatric: Anxiety Mood Description: Anxious Affect: Normal Speech Pattern: Clear and Appropriate Laboratory and Diagnostics Result Diagrams: 04/08/20 05:31 04/08/20 05:31 Labs: 04/04/20 09:11 Sputum - Endotracheal Wash Sputum Culture - Final Klebsiella Pneumoniae 04/04/20 09:11 Sputum - Endotracheal Wash - Final 04/03/20 21:22 Urine,Catheterized Urine Culture - Final Enterococcus Faecalis 04/03/20 12:32 Blood Blood Culture - Preliminary 04/03/20 12:28 Blood Blood Culture - Preliminary Laboratory WBC 5.9 X10^3/uL (3.6-10.0) 04/08/20 05:31 RBC 3.73 X10^6/uL (3.5-5.4) 04/08/20 05:31 Hgb 10.2 g/dL (12.0-16.0) L 04/08/20 05:31 Hct 32.3 % (36.0-47.0) L 04/08/20 05:31 MCV 86.7 fL (80.0-100.0) 04/08/20 05:31 MCH 27.5 pg (27.0-34.0) 04/08/20 05:31 MCHC 31.7 g/dL (33.0-35.0) L 04/08/20 05:31 RDW 16.8 % (11.6-16.5) H 04/08/20 05:31 Plt Count 194 X10^3/uL (150.0-450.0) 04/08/20 05:31 Plt Count Comment Adequate (ADEQUATE) 04/04/20 05:55 MPV 7.5 fL (7.4-11.0) 04/08/20 05:31 Neut % (Auto) 67.1 % (42.0-75.0) 04/08/20 05:31 Lymph % (Auto) 15.5 % (21.0-51.0) L 04/08/20 05:31 [place] % (Auto) 12.2 % (0.0-13.0) 04/08/20 05:31 Eos % (Auto) 4.4 % (0.9-2.9) H 04/08/20 05:31 Baso % (Auto) 0.8 % (0.2-1.0) 04/08/20 05:31 Neut # (Auto) 3.9 x10^3/uL (2.2-4.8) 04/08/20 05:31 Lymph # (Auto) 0.9 X10^3/uL (1.3-2.9) L 04/08/20 05:31 [place] # (Auto) 0.7 x10^3/uL (0.3-0.8) 04/08/20 05:31 Eos # (Auto) 0.3 x10^3/uL (0.0-0.2) H 04/08/20 05:31 Baso # (Auto) 0.0 X10^3/uL (0.0-0.1) 04/08/20 05:31 Absolute Nucleated RBC 0.0 /100WBC 04/08/20 05:31 Total Counted 100 04/04/20 05:55 Neutrophils % (Manual) 81 % (39-76) H 04/04/20 05:55 Band Neutrophils % 3 % (0-10) 04/04/20 05:55 Lymphocytes % (Manual) 10 % (13-43) L 04/04/20 05:55 Monocytes % (Manual) 3 % (4-9) L 04/04/20 05:55 Eosinophils % (Manual) 3 % (0-6) 04/04/20 05:55 Plt Morphology Comment Normal (NORMAL) 04/04/20 05:55 RBC Morphology Normal (NORMAL) 04/04/20 05:55 PT 13.5 SECONDS (11.8-14.3) 04/04/20 05:55 INR Target Range - 04/04/20 05:55 INR 1.06 (0.8-1.3) 04/04/20 05:55 APTT 37.0 SECONDS (22.9-36.5) H 04/04/20 05:55 PTT Comment - 04/04/20 05:55 Sample Site Lr 04/08/20 05:00 ABG pH 7.400 (7.35-7.45) 04/08/20 05:00 ABG pCO2 47.0 mmHg (35.0-45.0) H 04/08/20 05:00 ABG pO2 78.0 mmHg (80.0-100.0) L 04/08/20 05:00 ABG HCO3 29.1 mmol/L (22-26) H 04/08/20 05:00 ABG O2 Saturation 95.0 % (90-100) 04/08/20 05:00 ABG Base Excess 3.6 mmol/L (-2.0-2.0) H 04/08/20 05:00 Christos Test Pos 04/08/20 05:00 A-a Gradient 113.0 mmHg 04/08/20 05:00 FiO2 35.0 04/08/20 05:00 Blood Gas Comments Mayi well 04/08/20 05:00 Sodium 151 mmol/L (136-145) H* 04/08/20 05:31 Corrected Sodium 153 mmol/L (136-145) H 04/08/20 05:31 Potassium 4.6 mmol/L (3.5-5.1) 04/08/20 05:31 Chloride 116 mmol/L (98-107) H* 04/08/20 05:31 Carbon Dioxide 25.3 mmol/L (21-32) 04/08/20 05:31 BUN 40 mg/dL (7-18) H 04/08/20 05:31 Creatinine 2.17 mg/dL (0.55-1.02) H 04/08/20 05:31 Est GFR (MDRD) Af Amer 29 (>60) L 04/08/20 05:31 Est GFR (MDRD) Non-Af 24 (>60) L 04/08/20 05:31 Glucose 199 mg/dL (65-99) H 04/08/20 05:31 POC Glucose (mg/dL) 168 mg/dL (65-99) H 04/08/20 05:18 Lactic Acid 0.7 mmol/L (0.4-2.0) 04/03/20 12:32 Calcium 9.1 mg/dL (8.5-10.1) 04/08/20 05:31 Corrected Calcium 10.3 mg/dL (8.5-10.1) H 04/08/20 05:31 Magnesium 2.2 mg/dL (1.7-2.9) 04/04/20 05:55 Total Bilirubin 0.30 mg/dL (0.2-1.0) 04/08/20 05:31 AST 39 Units/L (15-37) H 04/08/20 05:31 ALT 13 Units/L (12-78) 04/08/20 05:31 Alkaline Phosphatase 48 Units/L (46-116) 04/08/20 05:31 Creatine Kinase 84 Units/L (26-192) 04/04/20 05:55 CK-MB (CK-2) 4.6 ng/mL (0-4.0) H* 04/04/20 05:55 CK/CKMB % Calc 5.5 % (<4) 04/04/20 05:55 Troponin I 0.34 ng/mL (0-1.5) 04/04/20 05:55 Total Protein 6.7 g/dL (6.4-8.2) 04/08/20 05:31 Albumin 2.5 g/dL (3.4-5.0) L 04/08/20 05:31 Globulin 4.2 g/dL (2.5-4.5) 04/08/20 05:31 Albumin/Globulin Ratio 0.6 Ratio (1.1-2.1) L 04/08/20 05:31 Specimen Type Catherized urine 04/03/20 21: Urine Color Yellow (YELLOW) 04/03/20 21: Urine Appearance Cloudy (CLEAR) 04/03/20 21: Urine pH 5.0 (5.0 - 8.0) 04/03/20 21: Ur Specific [place] 1.025 (1.000-1.030) 04/03/20 21:22 Urine Protein 4+ (NEGATIVE) 04/03/20 21:22 Urine Glucose (UA) Negative (NEGATIVE) 04/03/20 21: Urine Ketones Negative (NEGATIVE) 04/03/20 21: Urine Occult Blood 1+ (NEGATIVE) 04/03/20 21:22 Urine Nitrite Negative (NEGATIVE) 04/03/20 21:22 Urine Bilirubin Negative (NEGATIVE) 04/03/20 21: Urine Urobilinogen Normal (NORMAL) 04/03/20 21:22 Ur Leukocyte Esterase 2+ (NEGATIVE) 04/03/20 21:22 Urine RBC 0-2 /HPF (0-3) 04/03/20 21:22 Urine WBC 5-10 /HPF (0-5) A 04/03/20 21:22 Ur Squamous Epith Cells Few /HPF (NEGATIVE) 04/03/20 21:22 Urine Bacteria 2+ /HPF (NEGATIVE) 04/03/20 21: Coarse Granular Casts Few /HPF (NEGATIVE) 04/03/20 21: Urine Yeast Few /HPF (NEGATIVE) 04/03/20 21:22 Ur Culture Indicated? Yes/culture set up 04/03/20 21:22 Blood Type O POSITIVE 04/06/20 13:00 Antibody Screen Negative 04/06/20 13:00 Crossmatch See Detail 04/06/20 13:00 Plan (1) Acute on chronic respiratory failure with hypoxia and hypercapnia: Status: Acute (2) Endotracheally intubated: Status: Acute (3) Abnormal cardiac enzyme level: Status: Acute (4) AMS (altered mental status): Status: Acute Qualifiers: Altered mental status type: transient alteration of awareness Qualified Code(s): R40.4 - Transient alteration of awareness (5) Acute on chronic renal failure: Status: Acute (6) Hyperkalemia: Status: Acute (7) Obesity hypoventilation syndrome: Status: Acute (8) Uncontrolled type 2 diabetes mellitus: Status: Acute Qualifiers: Glycemic state: with hyperglycemia Qualified Code(s): E11.65 - Type 2 diabetes mellitus with hyperglycemia (9) Hypertension associated with stage 2 chronic kidney disease due to type 2 diabetes mellitus: Status: Acute (10) COPD (chronic obstructive pulmonary disease): Status: Acute (11) Hypoglycemia: Status: Acute
[2020-04-08] MEDS: HEPARIN SODIUM INJ 5000 UNITS SC SCH ×2 (09:06→20:33)
[2020-04-08] MEDS ORDERED: SOLU-Medrol 40 MG VIAL IVP ONE (09:10)
[2020-04-08] MEDS: ABILIFY PO SCH (09:20)
[2020-04-08] MEDS: COREG TAB 12.5 MG PO SCH ×2 (09:21→20:17)
[2020-04-08] MEDS: NEURONTIN CAP 400 MG PO SCH (09:21)
[2020-04-08] MEDS: NYSTATIN POWDER TOP SCH ×2 (09:22→20:19)
[2020-04-08] MEDS: NORCO 7.5/325 MG TAB PO SCH ×2 (09:22→20:18)
[2020-04-08] MEDS: XANAX PO SCH ×2 (09:23→20:21)
[2020-04-08] MEDS: SINEMET (PLAIN) 10/100 MG PO SCH ×2 (09:23→20:20)
[2020-04-08] MEDS: SYNTHROID 125 mcg TAB PO SCH (09:23)
[2020-04-08] MEDS: APRESOLINE INJ 20 MG VIAL IVP PRN (09:57)
[2020-04-08] MEDS: D5W 1000 ML IV 1,000 ML IV SCH (17:30)
[2020-04-08] MEDS: ZOCOR TAB 40 MG PO SCH (20:22)
[2020-04-09] MEDS: D5W 1000 ML IV 1,000 ML IV SCH (05:14)
[2020-04-09 05:26] LABS: BASOPHILS % (AUTO) 0.5 % (0.2-1.0); EOSINOPHILS # (AUTO) 0.1 x10^3/uL (0.0-0.2); EOSINOPHILS % (AUTO) 1.1 % (0.9-2.9); HEMATOCRIT 30.6 % (36.0-47.0); HEMOGLOBIN 9.7 g/dL (12.0-16.0); LYMPHOCYTES # (AUTO) 0.9 X10^3/uL (1.3-2.9); LYMPHOCYTES % (AUTO) 17.2 % (21.0-51.0); MEAN CORPUSCULAR HEMOGLOBIN 27.9 pg (27.0-34.0); MEAN CORPUSCULAR HGB CONC 31.8 g/dL (33.0-35.0); MEAN PLATELET VOLUME 7.9 fL (7.4-11.0); MONOCYTES # (AUTO) 0.5 x10^3/uL (0.3-0.8); MONOCYTES % (AUTO) 10.3 % (0.0-13.0); NEUTROPHILS # (AUTO) 3.7 x10^3/uL (2.2-4.8); NEUTROPHILS % (AUTO) 70.9 % (42.0-75.0); PLATELET COUNT 181 X10^3/uL (150.0-450.0); RED BLOOD COUNT 3.48 X10^6/uL (3.5-5.4); RED CELL DISTRIBUTION WIDTH 16.1 % (11.6-16.5); WHITE BLOOD COUNT 5.2 X10^3/uL (3.6-10.0)
[2020-04-09 05:35] LABS: ALBUMIN 2.3 g/dL (3.4-5.0); CALCIUM 8.7 mg/dL (8.5-10.1); CARBON DIOXIDE 26.8 mmol/L (21-32); COR CA(FOR HYPOALB) 10.1 mg/dL (8.5-10.1); CREATININE 2.29 mg/dL (0.55-1.02); TOTAL PROTEIN 6.4 g/dL (6.4-8.2)
[2020-04-09] MEDS: ZOSYN VIAL 3.375 GRAMS 3.375 G in NS 100 ML IV + SPIKE MINIBAG* 100 ML IV SCH ×3 (06:06→21:35)
[2020-04-09] MEDS: HumuLIN R SC PRN ×3 (06:07→17:25)
[2020-04-09] MEDS ORDERED: LASIX IVP SCH (09:00)
[2020-04-09] MEDS: NEURONTIN CAP 400 MG PO SCH (09:14)
[2020-04-09] MEDS: SYNTHROID 125 mcg TAB PO SCH (09:15)
[2020-04-09] MEDS: XANAX PO SCH ×2 (09:15→20:51)
[2020-04-09] MEDS: ABILIFY PO SCH (09:16)
[2020-04-09] MEDS: COREG TAB 12.5 MG PO SCH ×2 (09:16→20:49)
[2020-04-09] MEDS: NYSTATIN POWDER TOP SCH ×2 (09:17→20:50)
[2020-04-09] MEDS: APRESOLINE TAB 25 MG PO SCH ×2 (09:17→20:48)
[2020-04-09] MEDS: SINEMET (PLAIN) 10/100 MG PO SCH ×2 (09:18→20:50)
[2020-04-09] MEDS: NORCO 7.5/325 MG TAB PO SCH ×2 (09:18→20:49)
[2020-04-09] MEDS: PROTONIX INJ 40 MG VIAL IVP SCH (09:19)
[2020-04-09] MEDS: HEPARIN SODIUM INJ 5000 UNITS SC SCH ×2 (09:19→20:52)
--- NOTE | 2020-04-09 09:32 | PCM.PROG ---
Progress Note Progress Note for Day of Date of Exam: 04/09/20 Subjective Subjective: Patient seen at bedside, no overnight events. Patient was on BiPAP overnight, currently on 6L NC. She remained on hi-flow yesterday. She states she feels a lot better. She worked with PT/OT yesterday. She is recommended to go to rehab, she prefers [facility] or [facility]. She states she is having dry cough. Denies fever or chills. She reports good appetite. Labs: Hgb 9.7 BUN/Cr: 41/2.29 Na: 147 Cl: 107 Glucose: 265 Sputum: [place], Urine Cx: E faecalis Plan: Continue to wean O2 as tolerated, will decrease D5 to 50cc/hr, decrease lasix to 20 mg IV daily. Monitor AM labs. Continue PT/OT as tolerated. Discussed rehab placement with CM. Continue Zosyn. Past Medical Family Social History Past Med/Fam/Surg Hx: No changes since H&P Allergies: Allergies oxycodone Allergy (Verified 04/03/20 12:08) Review of Systems ROS: Changes notes (describe) Vital Signs and I&O's Vital Signs: Temperature 97.6 F Pulse Rate [Left Brachial] 59 Pulse Rate 74 Respiratory Rate 19 Blood Pressure [Right Arm] 166/71 Blood Pressure [Left Arm] 163/70 Blood Pressure [Right Arm] 160/76 Blood Pressure 107/49 O2 Sat by Pulse Oximetry 100 Intake and Output: Intake & Output 04/06/20 04/07/20 04/08/20 04/09/20 23:59 23:59 23:59 23:59 Intake Total 2791 / 2935 3586 / 3655 3418 / 3499 743 / 743 Output Total 1036 / 1070 1852 / 1916 1577 / 1615 382 / 382 Balance 1755 / 1865 1734 / 1739 1841 / 1884 361 / 361 Physical Exam Oriented: Normal Eyes: Normal Nose: Normal Throat: Normal Respiratory: Generalized, Diminished and [place] Cardiovascular: Normal and Edema (b/l LE edema, facial and upper ext edema present) Auscultation: Bowel Sounds: Normal and Other (colostomy bag present ) Tenderness: Normal Skin: Bruising and Other (swelling of both upper ext ) Musculoskeletal: Back:Thoracic, Back:Lumbar and Back:Paraspinous Psychiatric: Normal Mood Description: Calm Affect: Normal Speech Pattern: Clear and Appropriate Laboratory and Diagnostics Result Diagrams: 04/09/20 04:28 04/09/20 04:28 Labs: 04/03/20 12:32 Blood Blood Culture - Final 04/03/20 12:28 Blood Blood Culture - Final 04/04/20 09:11 Sputum - Endotracheal Wash Sputum Culture - Final Klebsiella Pneumoniae 04/04/20 09:11 Sputum - Endotracheal Wash - Final 04/03/20 21:22 Urine,Catheterized Urine Culture - Final Enterococcus Faecalis Laboratory WBC 5.2 X10^3/uL (3.6-10.0) 04/09/20 04:28 RBC 3.48 X10^6/uL (3.5-5.4) L 04/09/20 04:28 Hgb 9.7 g/dL (12.0-16.0) L 04/09/20 04:28 Hct 30.6 % (36.0-47.0) L 04/09/20 04:28 MCV 88.0 fL (80.0-100.0) 04/09/20 04:28 MCH 27.9 pg (27.0-34.0) 04/09/20 04:28 MCHC 31.8 g/dL (33.0-35.0) L 04/09/20 04:28 RDW 16.1 % (11.6-16.5) 04/09/20 04:28 Plt Count 181 X10^3/uL (150.0-450.0) 04/09/20 04:28 Plt Count Comment Adequate (ADEQUATE) 04/04/20 05:55 MPV 7.9 fL (7.4-11.0) 04/09/20 04:28 Neut % (Auto) 70.9 % (42.0-75.0) 04/09/20 04:28 Lymph % (Auto) 17.2 % (21.0-51.0) L 04/09/20 04:28 [place] % (Auto) 10.3 % (0.0-13.0) 04/09/20 04:28 Eos % (Auto) 1.1 % (0.9-2.9) 04/09/20 04:28 Baso % (Auto) 0.5 % (0.2-1.0) 04/09/20 04:28 Neut # (Auto) 3.7 x10^3/uL (2.2-4.8) 04/09/20 04:28 Lymph # (Auto) 0.9 X10^3/uL (1.3-2.9) L 04/09/20 04:28 [place] # (Auto) 0.5 x10^3/uL (0.3-0.8) 04/09/20 04:28 Eos # (Auto) 0.1 x10^3/uL (0.0-0.2) 04/09/20 04:28 Baso # (Auto) 0.0 X10^3/uL (0.0-0.1) 04/09/20 04:28 Absolute Nucleated RBC 0.1 /100WBC 04/09/20 04:28 Total Counted 100 04/04/20 05:55 Neutrophils % (Manual) 81 % (39-76) H 04/04/20 05:55 Band Neutrophils % 3 % (0-10) 04/04/20 05:55 Lymphocytes % (Manual) 10 % (13-43) L 04/04/20 05:55 Monocytes % (Manual) 3 % (4-9) L 04/04/20 05:55 Eosinophils % (Manual) 3 % (0-6) 04/04/20 05:55 Plt Morphology Comment Normal (NORMAL) 04/04/20 05:55 RBC Morphology Normal (NORMAL) 04/04/20 05:55 PT 13.5 SECONDS (11.8-14.3) 04/04/20 05:55 INR Target Range - 04/04/20 05:55 INR 1.06 (0.8-1.3) 04/04/20 05:55 APTT 37.0 SECONDS (22.9-36.5) H 04/04/20 05:55 PTT Comment - 04/04/20 05:55 Sample Site Lr 04/08/20 05:00 ABG pH 7.400 (7.35-7.45) 04/08/20 05:00 ABG pCO2 47.0 mmHg (35.0-45.0) H 04/08/20 05:00 ABG pO2 78.0 mmHg (80.0-100.0) L 04/08/20 05:00 ABG HCO3 29.1 mmol/L (22-26) H 04/08/20 05:00 ABG O2 Saturation 95.0 % (90-100) 04/08/20 05:00 ABG Base Excess 3.6 mmol/L (-2.0-2.0) H 04/08/20 05:00 Christos Test Pos 04/08/20 05:00 A-a Gradient 113.0 mmHg 04/08/20 05:00 FiO2 35.0 04/08/20 05:00 Blood Gas Comments Mayi well 04/08/20 05:00 Sodium 143 mmol/L (136-145) 04/09/20 04:28 Corrected Sodium 147 mmol/L (136-145) H 04/09/20 04:28 Potassium 4.8 mmol/L (3.5-5.1) 04/09/20 04:28 Chloride 107 mmol/L (98-107) 04/09/20 04:28 Carbon Dioxide 26.8 mmol/L (21-32) 04/09/20 04:28 BUN 41 mg/dL (7-18) H 04/09/20 04:28 Creatinine 2.29 mg/dL (0.55-1.02) H 04/09/20 04:28 Est GFR (MDRD) Af Amer 27 (>60) L 04/09/20 04:28 Est GFR (MDRD) Non-Af 23 (>60) L 04/09/20 04:28 Glucose 265 mg/dL (65-99) H 04/09/20 04:28 POC Glucose (mg/dL) 222 mg/dL (65-99) H 04/09/20 05:28 Lactic Acid 0.7 mmol/L (0.4-2.0) 04/03/20 12:32 Calcium 8.7 mg/dL (8.5-10.1) 04/09/20 04:28 Corrected Calcium 10.1 mg/dL (8.5-10.1) 04/09/20 04:28 Magnesium 2.2 mg/dL (1.7-2.9) 04/04/20 05:55 Total Bilirubin 0.20 mg/dL (0.2-1.0) 04/09/20 04:28 AST 21 Units/L (15-37) 04/09/20 04:28 ALT 12 Units/L (12-78) 04/09/20 04:28 Alkaline Phosphatase 44 Units/L (46-116) L 04/09/20 04:28 Creatine Kinase 84 Units/L (26-192) 04/04/20 05:55 CK-MB (CK-2) 4.6 ng/mL (0-4.0) H* 04/04/20 05:55 CK/CKMB % Calc 5.5 % (<4) 04/04/20 05:55 Troponin I 0.34 ng/mL (0-1.5) 04/04/20 05:55 Total Protein 6.4 g/dL (6.4-8.2) 04/09/20 04:28 Albumin 2.3 g/dL (3.4-5.0) L 04/09/20 04:28 Globulin 4.1 g/dL (2.5-4.5) 04/09/20 04:28 Albumin/Globulin Ratio 0.6 Ratio (1.1-2.1) L 04/09/20 04:28 Specimen Type Catherized urine 04/03/20 21: Urine Color Yellow (YELLOW) 04/03/20 21: Urine Appearance Cloudy (CLEAR) 04/03/20 21: Urine pH 5.0 (5.0 - 8.0) 04/03/20 21: Ur Specific [place] 1.025 (1.000-1.030) 04/03/20 21: Urine Protein 4+ (NEGATIVE) 04/03/20 21: Urine Glucose (UA) Negative (NEGATIVE) 04/03/20 21: Urine Ketones Negative (NEGATIVE) 04/03/20 21: Urine Occult Blood 1+ (NEGATIVE) 04/03/20 21: Urine Nitrite Negative (NEGATIVE) 04/03/20 21: Urine Bilirubin Negative (NEGATIVE) 04/03/20 21: Urine Urobilinogen Normal (NORMAL) 04/03/20 21: Ur Leukocyte Esterase 2+ (NEGATIVE) 04/03/20 21:22 Urine RBC 0-2 /HPF (0-3) 04/03/20 21:22 Urine WBC 5-10 /HPF (0-5) A 04/03/20 21: Ur Squamous Epith Cells Few /HPF (NEGATIVE) 04/03/20 21:22 Urine Bacteria 2+ /HPF (NEGATIVE) 04/03/20 21:22 Coarse Granular Casts Few /HPF (NEGATIVE) 04/03/20 21:22 Urine Yeast Few /HPF (NEGATIVE) 04/03/20 21:22 Ur Culture Indicated? Yes/culture set up 04/03/20 21:22 Blood Type O POSITIVE 04/06/20 13:00 Antibody Screen Negative 04/06/20 13:00 Crossmatch See Detail 04/06/20 13:00 Plan (1) Generalized weakness: Status: Acute (2) Acute on chronic respiratory failure with hypoxia and hypercapnia: Status: Acute (3) Acute on chronic renal failure: Status: Acute Qualifiers: Acute renal failure type: unspecified Chronic kidney disease stage: unspecified stage Qualified Code(s): N17.9 - Acute kidney failure, unspecified; N18.9 - Chronic kidney disease, unspecified (4) AMS (altered mental status): Status: Acute Qualifiers: Altered mental status type: transient alteration of awareness Qualified Code(s): R40.4 - Transient alteration of awareness (5) Hyperkalemia: Status: Acute (6) Obesity hypoventilation syndrome: Status: Acute (7) Uncontrolled type 2 diabetes mellitus: Status: Acute Qualifiers: Glycemic state: with hyperglycemia Qualified Code(s): E11.65 - Type 2 diabetes mellitus with hyperglycemia (8) Hypertension associated with stage 2 chronic kidney disease due to type 2 diabetes mellitus: Status: Acute (9) COPD (chronic obstructive pulmonary disease): Status: Acute Qualifiers: COPD type: unspecified COPD Qualified Code(s): J44.9 - Chronic obstructive pulmonary disease, unspecified
[2020-04-09] MEDS: SNACK - Diabetic Appropriate PO SCH (20:30)
[2020-04-09] MEDS: ZOCOR TAB 40 MG PO SCH (20:51)
[2020-04-09] MEDS: LEVEMIR SC SCH (20:53)
[2020-04-10] MEDS: ZOSYN VIAL 3.375 GRAMS 3.375 G in NS 100 ML IV + SPIKE MINIBAG* 100 ML IV SCH ×2 (06:09→21:22)
[2020-04-10 06:24] LABS: BASOPHILS # (AUTO) 0.1 X10^3/uL (0.0-0.1); BASOPHILS % (AUTO) 0.8 % (0.2-1.0); EOSINOPHILS # (AUTO) 0.7 x10^3/uL (0.0-0.2); EOSINOPHILS % (AUTO) 9.4 % (0.9-2.9); HEMATOCRIT 34.2 % (36.0-47.0); HEMOGLOBIN 10.7 g/dL (12.0-16.0); LYMPHOCYTES # (AUTO) 1.2 X10^3/uL (1.3-2.9); MEAN CORPUSCULAR HGB CONC 31.2 g/dL (33.0-35.0); MEAN CORPUSCULAR VOLUME 86.8 fL (80.0-100.0); MONOCYTES # (AUTO) 0.6 x10^3/uL (0.3-0.8); MONOCYTES % (AUTO) 8.4 % (0.0-13.0); NEUTROPHILS # (AUTO) 4.7 x10^3/uL (2.2-4.8); NEUTROPHILS % (AUTO) 64.4 % (42.0-75.0); PLATELET COUNT 188 X10^3/uL (150.0-450.0); RED BLOOD COUNT 3.94 X10^6/uL (3.5-5.4); RED CELL DISTRIBUTION WIDTH 15.9 % (11.6-16.5); WHITE BLOOD COUNT 7.3 X10^3/uL (3.6-10.0)
[2020-04-10 06:38] LABS: ALBUMIN 2.3 g/dL (3.4-5.0); CALCIUM 8.8 mg/dL (8.5-10.1); CARBON DIOXIDE 25.4 mmol/L (21-32); COR CA(FOR HYPOALB) 10.2 mg/dL (8.5-10.1); CREATININE 2.59 mg/dL (0.55-1.02); TOTAL PROTEIN 6.5 g/dL (6.4-8.2)
[2020-04-10] MEDS ORDERED: PEPCID TAB 20 MG PO SCH (09:00)
--- NOTE | 2020-04-10 09:04 | RAD ---
HISTORYPNEUMONIA, HYPOXIASTUDYCHEST, 1 [id number] view of the chestFINDINGSLeft chest wall port with tip in good position. Cardiac silhouette is stably enlarged. Worsened bilateral airspace disease with a mid and lower lung predominance. Thickened right minor fissure consistent with a small right pleural effusion. Soft tissue attenuation limits evaluation. No pneumothorax.IMPRESSIONWorsened bilateral airspace disease consistent with pneumonia or edema. Small right pleural effusion.Electronically signed by: Ryley Quiroga (Apr 10, 2020 09:04:26)
--- NOTE | 2020-04-10 09:27 | PCM.PROG ---
Progress Note Progress Note for Day of Date of Exam: 04/10/20 Subjective Subjective: Patient seen at bedside, no overnight events. She has been on 6L NC since yesterday, sats 100%. She reports she feels a lot better, breathing is better. She still has some mild cough. Denies fever or chills. She reports good appetite. CM is working on rehab placement. Patient will need a COVID test prior to placement. Labs: Hgb 10.7 BUN/Cr: 45/2.59 Na: 140 Cl: 108 Glucose: 149 K: 5.3 UOP: ~617 cc in 24 hrs Sputum: Klebseilla, Urine Cx: E faecalis Plan: Turned O2 down to 5L NC, sats remain 100%. Wean O2 as tolerated, patient uses 3L at home. Repeat CXR today, COVID swab for rehab placement. Will hold morning lasix dose. Continue Zosyn. Initiate bladder training. Monitor UOP and labs. Past Medical Family Social History Past Med/Fam/Surg Hx: No changes since H&P Allergies: Allergies oxycodone Allergy (Verified 04/03/20 12:08) Review of Systems ROS: Changes notes (describe) Vital Signs and I&O's Vital Signs: Temperature 97.8 F Pulse Rate [Left Brachial] 62 Pulse Rate 74 Respiratory Rate 16 Blood Pressure [Right Arm] 133/61 Blood Pressure [Left Arm] 154/69 Blood Pressure [Right Arm] 160/76 Blood Pressure 107/49 O2 Sat by Pulse Oximetry 100 Intake and Output: Intake & Output 04/07/20 04/08/20 04/09/20 04/10/20 23:59 23:59 23:59 23:59 Intake Total 3586 / 3655 3418 / 3499 1873 / 1873 300 / 300 Output Total 1852 / 1916 1577 / 1615 837 / 837 75 / 75 Balance 1734 / 1739 1841 / 1884 1036 / 1036 225 / 225 Physical Exam Oriented: Normal Eyes: Normal Nose: Normal Throat: Normal Respiratory: Generalized and Diminished Cardiovascular: Normal and Edema (b/l LE edema, facial and upper ext edema present - improved ) Auscultation: Bowel Sounds: Normal and Other (colostomy bag present ) Tenderness: Normal Skin: Other (swelling of both upper ext - improving ) Musculoskeletal: Back:Thoracic, Back:Lumbar and Back:Paraspinous Psychiatric: Normal Mood Description: Calm Affect: Normal Speech Pattern: Clear and Appropriate Laboratory and Diagnostics Result Diagrams: 04/10/20 05:41 04/10/20 05:41 Labs: 04/03/20 12:32 Blood Blood Culture - Final 04/03/20 12:28 Blood Blood Culture - Final 04/04/20 09:11 Sputum - Endotracheal Wash Sputum Culture - Final Klebsiella Pneumoniae 04/04/20 09:11 Sputum - Endotracheal Wash - Final 04/03/20 21:22 Urine,Catheterized Urine Culture - Final Enterococcus Faecalis Laboratory WBC 7.3 X10^3/uL (3.6-10.0) 04/10/20 05:41 RBC 3.94 X10^6/uL (3.5-5.4) 04/10/20 05:41 Hgb 10.7 g/dL (12.0-16.0) L 04/10/20 05:41 Hct 34.2 % (36.0-47.0) L 04/10/20 05:41 MCV 86.8 fL (80.0-100.0) 04/10/20 05:41 MCH 27.0 pg (27.0-34.0) 04/10/20 05:41 MCHC 31.2 g/dL (33.0-35.0) L 04/10/20 05:41 RDW 15.9 % (11.6-16.5) 04/10/20 05:41 Plt Count 188 X10^3/uL (150.0-450.0) 04/10/20 05:41 Plt Count Comment Adequate (ADEQUATE) 04/04/20 05:55 MPV 8.0 fL (7.4-11.0) 04/10/20 05:41 Neut % (Auto) 64.4 % (42.0-75.0) 04/10/20 05:41 Lymph % (Auto) 17.0 % (21.0-51.0) L 04/10/20 05:41 [place] % (Auto) 8.4 % (0.0-13.0) 04/10/20 05:41 Eos % (Auto) 9.4 % (0.9-2.9) H 04/10/20 05:41 Baso % (Auto) 0.8 % (0.2-1.0) 04/10/20 05:41 Neut # (Auto) 4.7 x10^3/uL (2.2-4.8) 04/10/20 05:41 Lymph # (Auto) 1.2 X10^3/uL (1.3-2.9) L 04/10/20 05:41 [place] # (Auto) 0.6 x10^3/uL (0.3-0.8) 04/10/20 05:41 Eos # (Auto) 0.7 x10^3/uL (0.0-0.2) H 04/10/20 05:41 Baso # (Auto) 0.1 X10^3/uL (0.0-0.1) 04/10/20 05:41 Absolute Nucleated RBC 0.0 /100WBC 04/10/20 05:41 Total Counted 100 04/04/20 05:55 Neutrophils % (Manual) 81 % (39-76) H 04/04/20 05:55 Band Neutrophils % 3 % (0-10) 04/04/20 05:55 Lymphocytes % (Manual) 10 % (13-43) L 04/04/20 05:55 Monocytes % (Manual) 3 % (4-9) L 04/04/20 05:55 Eosinophils % (Manual) 3 % (0-6) 04/04/20 05:55 Plt Morphology Comment Normal (NORMAL) 04/04/20 05:55 RBC Morphology Normal (NORMAL) 04/04/20 05:55 PT 13.5 SECONDS (11.8-14.3) 04/04/20 05:55 INR Target Range - 04/04/20 05:55 INR 1.06 (0.8-1.3) 04/04/20 05:55 APTT 37.0 SECONDS (22.9-36.5) H 04/04/20 05:55 PTT Comment - 04/04/20 05:55 Sample Site Lr 04/08/20 05:00 ABG pH 7.400 (7.35-7.45) 04/08/20 05:00 ABG pCO2 47.0 mmHg (35.0-45.0) H 04/08/20 05:00 ABG pO2 78.0 mmHg (80.0-100.0) L 04/08/20 05:00 ABG HCO3 29.1 mmol/L (22-26) H 04/08/20 05:00 ABG O2 Saturation 95.0 % (90-100) 04/08/20 05:00 ABG Base Excess 3.6 mmol/L (-2.0-2.0) H 04/08/20 05:00 Christos Test Pos 04/08/20 05:00 A-a Gradient 113.0 mmHg 04/08/20 05:00 FiO2 35.0 04/08/20 05:00 Blood Gas Comments Mayi well 04/08/20 05:00 Sodium 140 mmol/L (136-145) 04/10/20 05:41 Corrected Sodium 141 mmol/L (136-145) 04/10/20 05:41 Potassium 5.3 mmol/L (3.5-5.1) H 04/10/20 05:41 Chloride 108 mmol/L (98-107) H 04/10/20 05:41 Carbon Dioxide 25.4 mmol/L (21-32) 04/10/20 05:41 BUN 45 mg/dL (7-18) H 04/10/20 05:41 Creatinine 2.59 mg/dL (0.55-1.02) H 04/10/20 05:41 Est GFR (MDRD) Af Amer 24 (>60) L 04/10/20 05:41 Est GFR (MDRD) Non-Af 20 (>60) L 04/10/20 05:41 Glucose 149 mg/dL (65-99) H 04/10/20 05:41 POC Glucose (mg/dL) 127 mg/dL (65-99) H 04/10/20 05:52 Lactic Acid 0.7 mmol/L (0.4-2.0) 04/03/20 12:32 Calcium 8.8 mg/dL (8.5-10.1) 04/10/20 05:41 Corrected Calcium 10.2 mg/dL (8.5-10.1) H 04/10/20 05:41 Magnesium 2.2 mg/dL (1.7-2.9) 04/04/20 05:55 Total Bilirubin 0.20 mg/dL (0.2-1.0) 04/10/20 05:41 AST 22 Units/L (15-37) 04/10/20 05:41 ALT 12 Units/L (12-78) 04/10/20 05:41 Alkaline Phosphatase 43 Units/L (46-116) L 04/10/20 05:41 Creatine Kinase 84 Units/L (26-192) 04/04/20 05:55 CK-MB (CK-2) 4.6 ng/mL (0-4.0) H* 04/04/20 05:55 CK/CKMB % Calc 5.5 % (<4) 04/04/20 05:55 Troponin I 0.34 ng/mL (0-1.5) 04/04/20 05:55 Total Protein 6.5 g/dL (6.4-8.2) 04/10/20 05:41 Albumin 2.3 g/dL (3.4-5.0) L 04/10/20 05:41 Globulin 4.2 g/dL (2.5-4.5) 04/10/20 05:41 Albumin/Globulin Ratio 0.5 Ratio (1.1-2.1) L 04/10/20 05:41 Specimen Type Catherized urine 04/03/20 21: Urine Color Yellow (YELLOW) 04/03/20 21: Urine Appearance Cloudy (CLEAR) 04/03/20 21: Urine pH 5.0 (5.0 - 8.0) 04/03/20 21: Ur Specific [place] 1.025 (1.000-1.030) 04/03/20 21:22 Urine Protein 4+ (NEGATIVE) 04/03/20 21: Urine Glucose (UA) Negative (NEGATIVE) 04/03/20 21: Urine Ketones Negative (NEGATIVE) 04/03/20 21: Urine Occult Blood 1+ (NEGATIVE) 04/03/20 21: Urine Nitrite Negative (NEGATIVE) 04/03/20 21: Urine Bilirubin Negative (NEGATIVE) 04/03/20 21: Urine Urobilinogen Normal (NORMAL) 04/03/20 21:22 Ur Leukocyte Esterase 2+ (NEGATIVE) 04/03/20 21:22 Urine RBC 0-2 /HPF (0-3) 04/03/20 21:22 Urine WBC 5-10 /HPF (0-5) A 04/03/20 21:22 Ur Squamous Epith Cells Few /HPF (NEGATIVE) 04/03/20 21:22 Urine Bacteria 2+ /HPF (NEGATIVE) 04/03/20 21:22 Coarse Granular Casts Few /HPF (NEGATIVE) 04/03/20 21:22 Urine Yeast Few /HPF (NEGATIVE) 04/03/20 21:22 Ur Culture Indicated? Yes/culture set up 04/03/20 21:22 Blood Type O POSITIVE 04/06/20 13:00 Antibody Screen Negative 04/06/20 13:00 Crossmatch See Detail 04/06/20 13:00 Plan (1) Generalized weakness: Status: Acute (2) Acute on chronic respiratory failure with hypoxia and hypercapnia: Status: Acute (3) Acute on chronic renal failure: Status: Acute Qualifiers: Acute renal failure type: unspecified Chronic kidney disease stage: unspecified stage Qualified Code(s): N17.9 - Acute kidney failure, unspecified; N18.9 - Chronic kidney disease, unspecified (4) AMS (altered mental status): Status: Acute Qualifiers: Altered mental status type: transient alteration of awareness Qualified Code(s): R40.4 - Transient alteration of awareness (5) Hyperkalemia: Status: Acute (6) Obesity hypoventilation syndrome: Status: Acute (7) Uncontrolled type 2 diabetes mellitus: Status: Acute Qualifiers: Glycemic state: with hyperglycemia Qualified Code(s): E11.65 - Type 2 diabetes mellitus with hyperglycemia (8) Hypertension associated with stage 2 chronic kidney disease due to type 2 diabetes mellitus: Status: Acute (9) COPD (chronic obstructive pulmonary disease): Status: Acute Qualifiers: COPD type: unspecified COPD Qualified Code(s): J44.9 - Chronic obstructive pulmonary disease, unspecified
[2020-04-10] MEDS: ABILIFY PO SCH (09:39)
[2020-04-10] MEDS: XANAX PO SCH ×2 (09:40→21:21)
[2020-04-10] MEDS: NORCO 7.5/325 MG TAB PO SCH ×2 (09:41→21:20)
[2020-04-10] MEDS: APRESOLINE TAB 25 MG PO SCH ×2 (09:41→21:19)
[2020-04-10] MEDS: NYSTATIN POWDER TOP SCH ×2 (09:41→21:21)
[2020-04-10] MEDS: COREG TAB 12.5 MG PO SCH ×2 (09:42→21:19)
[2020-04-10] MEDS: SINEMET (PLAIN) 10/100 MG PO SCH ×2 (09:43→21:21)
[2020-04-10] MEDS: SYNTHROID 125 mcg TAB PO SCH (09:44)
[2020-04-10] MEDS: HEPARIN SODIUM INJ 5000 UNITS SC SCH ×2 (09:44→21:19)
[2020-04-10] MEDS: LEVEMIR SC SCH ×2 (09:44→21:20)
[2020-04-10] MEDS: NEURONTIN TAB 600 MG PO SCH (09:45)
[2020-04-10] MEDS: LASIX IVP SCH (12:09)
[2020-04-10] MEDS: SNACK - Diabetic Appropriate PO SCH (21:22)
[2020-04-10] MEDS: ZOCOR TAB 40 MG PO SCH (21:22)
[2020-04-11 06:24] LABS: BASOPHILS % (AUTO) 0.8 % (0.2-1.0); EOSINOPHILS # (AUTO) 0.7 x10^3/uL (0.0-0.2); EOSINOPHILS % (AUTO) 12.4 % (0.9-2.9); HEMATOCRIT 32.6 % (36.0-47.0); HEMOGLOBIN 10.2 g/dL (12.0-16.0); LYMPHOCYTES # (AUTO) 0.9 X10^3/uL (1.3-2.9); LYMPHOCYTES % (AUTO) 17.3 % (21.0-51.0); MEAN CORPUSCULAR HEMOGLOBIN 27.4 pg (27.0-34.0); MEAN CORPUSCULAR HGB CONC 31.4 g/dL (33.0-35.0); MEAN CORPUSCULAR VOLUME 87.4 fL (80.0-100.0); MEAN PLATELET VOLUME 8.3 fL (7.4-11.0); MONOCYTES # (AUTO) 0.4 x10^3/uL (0.3-0.8); MONOCYTES % (AUTO) 7.2 % (0.0-13.0); NEUTROPHILS # (AUTO) 3.4 x10^3/uL (2.2-4.8); NEUTROPHILS % (AUTO) 62.3 % (42.0-75.0); PLATELET COUNT 209 X10^3/uL (150.0-450.0); RED BLOOD COUNT 3.73 X10^6/uL (3.5-5.4); WHITE BLOOD COUNT 5.4 X10^3/uL (3.6-10.0)
[2020-04-11 06:49] LABS: ALANINE AMINOTRANSFERASE < 6 Units/L (12-78); ALBUMIN 2.3 g/dL (3.4-5.0); ALKALINE PHOSPHATASE 42 Units/L (46-116); ASPARTATE AMINO TRANSFERASE 15 Units/L (15-37); BLOOD UREA NITROGEN 49 mg/dL (7-18); CALCIUM 8.8 mg/dL (8.5-10.1); CHLORIDE 107 mmol/L (98-107); COR CA(FOR HYPOALB) 10.2 mg/dL (8.5-10.1); COR NA(FOR HYPERGLY) 140 mmol/L (136-145); CREATININE 2.88 mg/dL (0.55-1.02); SODIUM 140 mmol/L (136-145); TOTAL PROTEIN 6.4 g/dL (6.4-8.2); eGFR NON BLACK RACES 17 (>60)
[2020-04-11] MEDS ORDERED: TUSSIONEX PENNKINETIC SUSP PO PRN (08:58)
[2020-04-11] MEDS: NEURONTIN TAB 600 MG PO SCH (09:37)
[2020-04-11] MEDS: XANAX PO SCH ×2 (09:38→21:45)
[2020-04-11] MEDS: SYNTHROID 125 mcg TAB PO SCH (09:38)
[2020-04-11] MEDS: ABILIFY PO SCH (09:38)
[2020-04-11] MEDS: COREG TAB 12.5 MG PO SCH ×2 (09:39→21:45)
[2020-04-11] MEDS: APRESOLINE TAB 25 MG PO SCH ×2 (09:39→21:45)
[2020-04-11] MEDS: SINEMET (PLAIN) 10/100 MG PO SCH ×2 (09:39→21:45)
[2020-04-11] MEDS: HEPARIN SODIUM INJ 5000 UNITS SC SCH ×2 (09:40→21:45)
[2020-04-11] MEDS: NORCO 7.5/325 MG TAB PO SCH ×2 (09:40→21:45)
[2020-04-11] MEDS: NYSTATIN POWDER TOP SCH ×2 (09:41→21:45)
[2020-04-11] MEDS: LEVEMIR SC SCH ×2 (09:41→21:45)
[2020-04-11] MEDS: ZOSYN VIAL 3.375 GRAMS 3.375 G in NS 100 ML IV + SPIKE MINIBAG* 100 ML IV SCH ×2 (09:42→21:45)
[2020-04-11] MEDS ORDERED: NS 500 ML IV 500 ML IV ONE (10:46)
[2020-04-11] MEDS: DUONEB 0.5 MG/3 MG (3 mL) NEB SCH ×3 (11:33→17:35)
--- NOTE | 2020-04-11 12:17 | PCM.PROG ---
Progress Note Progress Note for Day of Date of Exam: 04/11/20 Subjective Subjective: Patient seen at bedside, reports feeling better. She is currently on 3L NC O2 which is her baseline. She states she is coughing still, mostly dry but feels like it's stuck in her throat. Denies fever or chills. She has been eating well. She is going through bladder training to remove the price. She has been accepted for rehab, waiting on COVID results. Labs: Hgb 10.2 BUN/Cr: 49/2.88 Na: 140 Cl: 107 Glucose: 115 K: 5 Sputum: Klebseilla, Urine Cx: E faecalis CXR yesterday: did show worsening pneumonia vs edema Plan: remove price as tolerated, PT/OT as tolerated. Follow covid results. Will add duonebs QID. Continue Zosyn. Will hold lasix and give NS 500cc bolus. Monitor UOP. Monitor AM labs. Possible transfer to rehab on Tuesday. Wean O2 as tolerated. Past Medical Family Social History Past Med/Fam/Surg Hx: No changes since H&P Allergies: Allergies oxycodone Allergy (Verified 04/03/20 12:08) Review of Systems ROS: Changes notes (describe) Vital Signs and I&O's Vital Signs: Temperature 97.9 F Pulse Rate [Left Brachial] 64 Pulse Rate 74 Respiratory Rate 18 Blood Pressure [Right Arm] 167/70 Blood Pressure [Left Arm] 154/69 Blood Pressure [Right Arm] 160/76 Blood Pressure 107/49 O2 Sat by Pulse Oximetry 100 Intake and Output: Intake & Output 04/08/20 04/09/20 04/10/20 04/11/20 23:59 23:59 23:59 23:59 Intake Total 3418 / 3499 1873 / 1873 1110 / 1110 120 / 120 Output Total 1577 / 1615 837 / 837 700 / 700 100 / 100 Balance 1841 / 1884 1036 / 1036 410 / 410 Physical Exam Oriented: Normal Eyes: Normal Nose: Normal Throat: Normal Respiratory: Generalized and Diminished Cardiovascular: Normal and Edema (b/l LE edema, facial and upper ext edema improved ) Auscultation: Bowel Sounds: Normal and Other (colostomy bag present ) Tenderness: Normal Skin: Other (swelling of both upper ext - improving ) Musculoskeletal: Back:Thoracic, Back:Lumbar and Back:Paraspinous Psychiatric: Normal Mood Description: Calm Affect: Normal Speech Pattern: Appropriate Laboratory and Diagnostics Result Diagrams: 04/11/20 05:15 04/11/20 05:15 Labs: 04/03/20 12:32 Blood Blood Culture - Final 04/03/20 12:28 Blood Blood Culture - Final 04/04/20 09:11 Sputum - Endotracheal Wash Sputum Culture - Final Klebsiella Pneumoniae 04/04/20 09:11 Sputum - Endotracheal Wash - Final 04/03/20 21:22 Urine,Catheterized Urine Culture - Final Enterococcus Faecalis Laboratory WBC 5.4 X10^3/uL (3.6-10.0) 04/11/20 05:15 RBC 3.73 X10^6/uL (3.5-5.4) 04/11/20 05:15 Hgb 10.2 g/dL (12.0-16.0) L 04/11/20 05:15 Hct 32.6 % (36.0-47.0) L 04/11/20 05:15 MCV 87.4 fL (80.0-100.0) 04/11/20 05:15 MCH 27.4 pg (27.0-34.0) 04/11/20 05:15 MCHC 31.4 g/dL (33.0-35.0) L 04/11/20 05:15 RDW 16.0 % (11.6-16.5) 04/11/20 05:15 Plt Count 209 X10^3/uL (150.0-450.0) 04/11/20 05:15 Plt Count Comment Adequate (ADEQUATE) 04/04/20 05:55 MPV 8.3 fL (7.4-11.0) 04/11/20 05:15 Neut % (Auto) 62.3 % (42.0-75.0) 04/11/20 05:15 Lymph % (Auto) 17.3 % (21.0-51.0) L 04/11/20 05:15 [place] % (Auto) 7.2 % (0.0-13.0) 04/11/20 05:15 Eos % (Auto) 12.4 % (0.9-2.9) H 04/11/20 05:15 Baso % (Auto) 0.8 % (0.2-1.0) 04/11/20 05:15 Neut # (Auto) 3.4 x10^3/uL (2.2-4.8) 04/11/20 05:15 Lymph # (Auto) 0.9 X10^3/uL (1.3-2.9) L 04/11/20 05:15 [place] # (Auto) 0.4 x10^3/uL (0.3-0.8) 04/11/20 05:15 Eos # (Auto) 0.7 x10^3/uL (0.0-0.2) H 04/11/20 05:15 Baso # (Auto) 0.0 X10^3/uL (0.0-0.1) 04/11/20 05:15 Absolute Nucleated RBC 0.0 /100WBC 04/11/20 05:15 Total Counted 100 04/04/20 05:55 Neutrophils % (Manual) 81 % (39-76) H 04/04/20 05:55 Band Neutrophils % 3 % (0-10) 04/04/20 05:55 Lymphocytes % (Manual) 10 % (13-43) L 04/04/20 05:55 Monocytes % (Manual) 3 % (4-9) L 04/04/20 05:55 Eosinophils % (Manual) 3 % (0-6) 04/04/20 05:55 Plt Morphology Comment Normal (NORMAL) 04/04/20 05:55 RBC Morphology Normal (NORMAL) 04/04/20 05:55 PT 13.5 SECONDS (11.8-14.3) 04/04/20 05:55 INR Target Range - 04/04/20 05:55 INR 1.06 (0.8-1.3) 04/04/20 05:55 APTT 37.0 SECONDS (22.9-36.5) H 04/04/20 05:55 PTT Comment - 04/04/20 05:55 Sample Site Lr 04/08/20 05:00 ABG pH 7.400 (7.35-7.45) 04/08/20 05:00 ABG pCO2 47.0 mmHg (35.0-45.0) H 04/08/20 05:00 ABG pO2 78.0 mmHg (80.0-100.0) L 04/08/20 05:00 ABG HCO3 29.1 mmol/L (22-26) H 04/08/20 05:00 ABG O2 Saturation 95.0 % (90-100) 04/08/20 05:00 ABG Base Excess 3.6 mmol/L (-2.0-2.0) H 04/08/20 05:00 Christos Test Pos 04/08/20 05:00 A-a Gradient 113.0 mmHg 04/08/20 05:00 FiO2 35.0 04/08/20 05:00 Blood Gas Comments Mayi well 04/08/20 05:00 Sodium 140 mmol/L (136-145) 04/11/20 05:15 Corrected Sodium 140 mmol/L (136-145) 04/11/20 05:15 Potassium 5.0 mmol/L (3.5-5.1) 04/11/20 05:15 Chloride 107 mmol/L (98-107) 04/11/20 05:15 Carbon Dioxide 24.0 mmol/L (21-32) 04/11/20 05:15 BUN 49 mg/dL (7-18) H 04/11/20 05:15 Creatinine 2.88 mg/dL (0.55-1.02) H 04/11/20 05:15 Est GFR (MDRD) Af Amer 21 (>60) L 04/11/20 05:15 Est GFR (MDRD) Non-Af 17 (>60) L 04/11/20 05:15 Glucose 115 mg/dL (65-99) H 04/11/20 05:15 POC Glucose (mg/dL) 141 mg/dL (65-99) H 04/11/20 11:51 Lactic Acid 0.7 mmol/L (0.4-2.0) 04/03/20 12:32 Calcium 8.8 mg/dL (8.5-10.1) 04/11/20 05:15 Corrected Calcium 10.2 mg/dL (8.5-10.1) H 04/11/20 05:15 Magnesium 2.2 mg/dL (1.7-2.9) 04/04/20 05:55 Total Bilirubin 0.10 mg/dL (0.2-1.0) L 04/11/20 05:15 AST 15 Units/L (15-37) 04/11/20 05:15 ALT < 6 Units/L (12-78) L 04/11/20 05:15 Alkaline Phosphatase 42 Units/L (46-116) L 04/11/20 05:15 Creatine Kinase 84 Units/L (26-192) 04/04/20 05:55 CK-MB (CK-2) 4.6 ng/mL (0-4.0) H* 04/04/20 05:55 CK/CKMB % Calc 5.5 % (<4) 04/04/20 05:55 Troponin I 0.34 ng/mL (0-1.5) 04/04/20 05:55 B-Natriuretic Peptide 162 pg/mL (0-79) H 04/10/20 05:41 Total Protein 6.4 g/dL (6.4-8.2) 04/11/20 05:15 Albumin 2.3 g/dL (3.4-5.0) L 04/11/20 05:15 Globulin 4.1 g/dL (2.5-4.5) 04/11/20 05:15 Albumin/Globulin Ratio 0.6 Ratio (1.1-2.1) L 04/11/20 05:15 Specimen Type Catherized urine 04/03/20 21: Urine Color Yellow (YELLOW) 04/03/20 21: Urine Appearance Cloudy (CLEAR) 04/03/20 21: Urine pH 5.0 (5.0 - 8.0) 04/03/20 21: Ur Specific [place] 1.025 (1.000-1.030) 04/03/20 21: Urine Protein 4+ (NEGATIVE) 04/03/20 21: Urine Glucose (UA) Negative (NEGATIVE) 04/03/20 21: Urine Ketones Negative (NEGATIVE) 04/03/20 21: Urine Occult Blood 1+ (NEGATIVE) 04/03/20 21: Urine Nitrite Negative (NEGATIVE) 04/03/20 21: Urine Bilirubin Negative (NEGATIVE) 04/03/20 21: Urine Urobilinogen Normal (NORMAL) 04/03/20 21:22 Ur Leukocyte Esterase 2+ (NEGATIVE) 04/03/20 21: Urine RBC 0-2 /HPF (0-3) 04/03/20 21:22 Urine WBC 5-10 /HPF (0-5) A 04/03/20 21:22 Ur Squamous Epith Cells Few /HPF (NEGATIVE) 04/03/20 21:22 Urine Bacteria 2+ /HPF (NEGATIVE) 04/03/20 21:22 Coarse Granular Casts Few /HPF (NEGATIVE) 04/03/20 21:22 Urine Yeast Few /HPF (NEGATIVE) 04/03/20 21:22 Ur Culture Indicated? Yes/culture set up 04/03/20 21:22 Blood Type O POSITIVE 04/06/20 13:00 Antibody Screen Negative 04/06/20 13:00 Crossmatch See Detail 04/06/20 13:00 Plan (1) Generalized weakness: Status: Acute (2) Acute on chronic respiratory failure with hypoxia and hypercapnia: Status: Acute (3) Acute on chronic renal failure: Status: Acute Qualifiers: Acute renal failure type: unspecified Chronic kidney disease stage: unspecified stage Qualified Code(s): N17.9 - Acute kidney failure, unspecified; N18.9 - Chronic kidney disease, unspecified (4) AMS (altered mental status): Status: Acute Qualifiers: Altered mental status type: transient alteration of awareness Qualified Code(s): R40.4 - Transient alteration of awareness (5) Hyperkalemia: Status: Acute (6) Obesity hypoventilation syndrome: Status: Acute (7) Uncontrolled type 2 diabetes mellitus: Status: Acute Qualifiers: Glycemic state: with hyperglycemia Qualified Code(s): E11.65 - Type 2 diabetes mellitus with hyperglycemia (8) Klebsiella pneumonia: Status: Acute Qualifiers: Laterality: bilateral Lung location: unspecified part of lung Qualified Code(s): J15.0 - Pneumonia due to Klebsiella pneumoniae (9) Enterococcus UTI: Status: Acute (10) COPD (chronic obstructive pulmonary disease): Status: Acute Qualifiers: COPD type: unspecified COPD Qualified Code(s): J44.9 - Chronic obstructive pulmonary disease, unspecified (11) Hypertension associated with stage 2 chronic kidney disease due to type 2 diabetes mellitus: Status: Acute
[2020-04-11] MEDS: ZOCOR TAB 40 MG PO SCH (21:45)
[2020-04-11] MEDS: SNACK - Diabetic Appropriate PO SCH (21:45)
[2020-04-12] MEDS: DUONEB 0.5 MG/3 MG (3 mL) NEB SCH ×4 (00:40→17:50)
[2020-04-12 06:44] LABS: BASOPHILS % (AUTO) 0.7 % (0.2-1.0); EOSINOPHILS # (AUTO) 0.5 x10^3/uL (0.0-0.2); EOSINOPHILS % (AUTO) 9.1 % (0.9-2.9); HEMATOCRIT 32.5 % (36.0-47.0); HEMOGLOBIN 10.2 g/dL (12.0-16.0); LYMPHOCYTES # (AUTO) 1.1 X10^3/uL (1.3-2.9); LYMPHOCYTES % (AUTO) 17.4 % (21.0-51.0); MEAN CORPUSCULAR HEMOGLOBIN 27.3 pg (27.0-34.0); MEAN CORPUSCULAR HGB CONC 31.4 g/dL (33.0-35.0); MEAN PLATELET VOLUME 8.2 fL (7.4-11.0); MONOCYTES # (AUTO) 0.5 x10^3/uL (0.3-0.8); MONOCYTES % (AUTO) 8.5 % (0.0-13.0); NEUTROPHILS # (AUTO) 3.9 x10^3/uL (2.2-4.8); NEUTROPHILS % (AUTO) 64.3 % (42.0-75.0); PLATELET COUNT 227 X10^3/uL (150.0-450.0); RED BLOOD COUNT 3.73 X10^6/uL (3.5-5.4); RED CELL DISTRIBUTION WIDTH 15.9 % (11.6-16.5)
[2020-04-12 06:53] LABS: ALANINE AMINOTRANSFERASE 7 Units/L (12-78); ALBUMIN 2.2 g/dL (3.4-5.0); ALKALINE PHOSPHATASE 43 Units/L (46-116); ASPARTATE AMINO TRANSFERASE 17 Units/L (15-37); BLOOD UREA NITROGEN 48 mg/dL (7-18); CALCIUM 8.8 mg/dL (8.5-10.1); CARBON DIOXIDE 26.4 mmol/L (21-32); CHLORIDE 108 mmol/L (98-107); COR CA(FOR HYPOALB) 10.2 mg/dL (8.5-10.1); CREATININE 2.97 mg/dL (0.55-1.02); SODIUM 140 mmol/L (136-145); TOTAL PROTEIN 6.3 g/dL (6.4-8.2); eGFR NON BLACK RACES 17 (>60)
[2020-04-12] MEDS: ABILIFY PO SCH (09:25)
[2020-04-12] MEDS: NORCO 7.5/325 MG TAB PO SCH ×2 (09:27→21:00)
[2020-04-12] MEDS: NEURONTIN TAB 600 MG PO SCH (09:28)
[2020-04-12] MEDS: SYNTHROID 125 mcg TAB PO SCH (09:29)
[2020-04-12] MEDS: PEPCID TAB 20 MG PO SCH (09:29)
[2020-04-12] MEDS: APRESOLINE TAB 25 MG PO SCH ×2 (09:30→21:00)
[2020-04-12] MEDS: COREG TAB 12.5 MG PO SCH ×2 (09:31→21:00)
[2020-04-12] MEDS: SINEMET (PLAIN) 10/100 MG PO SCH ×2 (09:32→21:00)
[2020-04-12] MEDS: LEVEMIR SC SCH ×2 (09:40→22:00)
[2020-04-12] MEDS: HEPARIN SODIUM INJ 5000 UNITS SC SCH ×2 (09:41→21:00)
[2020-04-12] MEDS: XANAX PO SCH ×2 (09:42→21:00)
[2020-04-12] MEDS: NYSTATIN POWDER TOP SCH ×2 (09:42→21:00)
[2020-04-12] MEDS: ZOSYN VIAL 3.375 GRAMS 3.375 G in NS 100 ML IV + SPIKE MINIBAG* 100 ML IV SCH ×2 (09:43→21:00)
[2020-04-12] MEDS: TEMOVATE CREAM EXT SCH ×2 (12:00→21:00)
[2020-04-12] MEDS: EUCERIN TOP SCH ×2 (12:00→21:00)
[2020-04-12] MEDS: SNACK - Diabetic Appropriate PO SCH (20:00)
[2020-04-12] MEDS: ZOCOR TAB 40 MG PO SCH (21:00)
[2020-04-13] MEDS: DUONEB 0.5 MG/3 MG (3 mL) NEB SCH ×4 (00:15→17:58)
[2020-04-13 07:07] LABS: BASOPHILS # (AUTO) 0.1 X10^3/uL (0.0-0.1); BASOPHILS % (AUTO) 0.8 % (0.2-1.0); EOSINOPHILS # (AUTO) 0.5 x10^3/uL (0.0-0.2); EOSINOPHILS % (AUTO) 7.5 % (0.9-2.9); HEMATOCRIT 32.6 % (36.0-47.0); HEMOGLOBIN 10.3 g/dL (12.0-16.0); MEAN CORPUSCULAR HEMOGLOBIN 27.2 pg (27.0-34.0); MEAN CORPUSCULAR HGB CONC 31.7 g/dL (33.0-35.0); MEAN PLATELET VOLUME 7.9 fL (7.4-11.0); MONOCYTES # (AUTO) 0.5 x10^3/uL (0.3-0.8); MONOCYTES % (AUTO) 7.9 % (0.0-13.0); NEUTROPHILS # (AUTO) 4.6 x10^3/uL (2.2-4.8); NEUTROPHILS % (AUTO) 68.8 % (42.0-75.0); PLATELET COUNT 236 X10^3/uL (150.0-450.0); RED BLOOD COUNT 3.79 X10^6/uL (3.5-5.4); RED CELL DISTRIBUTION WIDTH 15.8 % (11.6-16.5); WHITE BLOOD COUNT 6.7 X10^3/uL (3.6-10.0)
[2020-04-13 07:30] LABS: ALANINE AMINOTRANSFERASE 8 Units/L (12-78); ALBUMIN 2.3 g/dL (3.4-5.0); ALKALINE PHOSPHATASE 45 Units/L (46-116); ASPARTATE AMINO TRANSFERASE 19 Units/L (15-37); BLOOD UREA NITROGEN 48 mg/dL (7-18); CALCIUM 8.9 mg/dL (8.5-10.1); CHLORIDE 107 mmol/L (98-107); COR CA(FOR HYPOALB) 10.3 mg/dL (8.5-10.1); CREATININE 2.86 mg/dL (0.55-1.02); SODIUM 140 mmol/L (136-145); TOTAL PROTEIN 6.4 g/dL (6.4-8.2); eGFR NON BLACK RACES 18 (>60)
[2020-04-13] MEDS: ABILIFY PO SCH (09:16)
[2020-04-13] MEDS: SINEMET (PLAIN) 10/100 MG PO SCH ×2 (09:17→20:56)
[2020-04-13] MEDS: ZOSYN VIAL 3.375 GRAMS 3.375 G in NS 100 ML IV + SPIKE MINIBAG* 100 ML IV SCH ×2 (09:17→20:57)
[2020-04-13] MEDS: XANAX PO SCH ×2 (09:18→20:57)
[2020-04-13] MEDS: NORCO 7.5/325 MG TAB PO SCH ×2 (09:18→20:55)
[2020-04-13] MEDS: SYNTHROID 125 mcg TAB PO SCH (09:18)
[2020-04-13] MEDS: APRESOLINE TAB 25 MG PO SCH ×2 (09:19→20:53)
[2020-04-13] MEDS: COREG TAB 12.5 MG PO SCH ×2 (09:19→20:53)
[2020-04-13] MEDS: LASIX IVP SCH (09:19)
[2020-04-13] MEDS: NEURONTIN TAB 600 MG PO SCH (09:19)
[2020-04-13] MEDS: EUCERIN TOP SCH ×2 (09:20→20:53)
[2020-04-13] MEDS: HEPARIN SODIUM INJ 5000 UNITS SC SCH ×2 (09:20→20:53)
[2020-04-13] MEDS: LEVEMIR SC SCH ×2 (09:20→20:55)
[2020-04-13] MEDS ORDERED: DILAUDID INJ ONE ×2 (11:03→18:51)
--- NOTE | 2020-04-13 11:15 | RAD ---
HISTORYSOBSTUDYCHEST, 1 [id number] heart is mildly enlarged but unchanged. The pulmonary vessels are engorged centrally less prominent. There are some hazy perihilar and bibasilar opacities which have decreased. There are small bibasilar pleural effusions which are more apparent. There is a left Port-A-Cath in place which is unchanged.IMPRESSIONStable cardiomegaly with slowly resolving pulmonary edema.Hazy perihilar and bibasilar opacities which are less prominent.Small bibasilar pleural effusions which are more prominent.Electronically signed by: JEFF MONTOYA (Apr 13, 2020 11:13:45)
[2020-04-13] MEDS: NYSTATIN POWDER TOP SCH ×2 (11:28→20:56)
[2020-04-13] MEDS: TEMOVATE CREAM EXT SCH ×2 (11:28→20:56)
[2020-04-13] MEDS: DILAUDID INJ IVP PRN ×2 (11:30→19:15)
--- NOTE | 2020-04-13 11:47 | PCM.PROG ---
Progress Note - Progress Note for Day of Date of Exam: 04/12/20 - Subjective Subjective: IS A 65 YEAR OLD PATIENT OF . SHE HAS BEEN TREATED FOR RESPIRATORY FAILURE AND ACUTE RENAL FAILURE. RESPIRATORY FAILURE HAS RESOLVED. SHE HAS BEEN ACCEPTED FOR REHAB AT THE [facility]. WE ARE AWAITING COVID RESULTS PRIOR TO TRANSFER. SHE REPORTS COUGH, WEAKNESS, AND GENERALIZED PAIN THIS MORNING. ON EXAMINATION, HEART IS REGULAR IN RATE AND RHYTHM. BILATERAL LUNGS ARE NOTED WITH DIMINISHED LUNG SOUNDS THROUGHOUT. ABDOMEN IS OBESE AND NON-TENDER. NORMAL BOWEL SOUNDS NOTED IN ALL QUADRANTS. HER VITALS THIS MORNING ARE: 97.7-68-20-98%-130/59. LABS WERE OBTAINED. ABNORMAL LAB VALUES INCLUDE THE FOLLOWING: HGB 10.3, HCT 32.6, BUN 48, CREATININE 2.86, AST 8 , ALT 45, ALBUMIN 2.3. SPUTUM CULTURE WAS POSITIVE FOR KLEBSIELLA PNEUMONIAE. URINE CULTURE WAS POSITVE FOR ENTEROCOCCUS FAECALIS. SHE IS CURRENTLY RECEIVNG ZOSYN 3.375G IV BID, HEPARIN 5,000UNITS SC BID, DUONEBS Q6H, HUMULIN R SLIDING SCALE, LEVEMIR 10 UNITS SC BID, AND HOME MEDICATIONS OF XANAX, ABILIFY, SINEMET, COREG, PEPCID, NEURONTIN, HYDRALAZINE, AND ZOCOR WERE RESUMED. HER LASIX WAS HELD YESTERDAY AND SHE WAS GIVEN A 500 ML BOLUS OF NORMAL SALINE. WE WILL CONTINUE WITH CURRENT PLAN OF CARE TODAY. OTHERWISE, WE WILL FOLLOW UP WITH AM LABS AND CONTINUE TO MONITOR. - Past Medical Family Social History Past Med/Fam/Surg Hx: No changes since H&P Allergies: Allergies oxycodone Allergy (Verified 04/03/20 12:08) - Review of Systems ROS: Changes notes (describe) - Vital Signs and I&O's Vital Signs: Temperature 97.7 F Pulse Rate [Left Brachial] 73 Pulse Rate 73 Respiratory Rate 18 Blood Pressure [Right Arm] 105/52 Blood Pressure [Left Arm] 154/69 Blood Pressure [Right Arm] 160/76 Blood Pressure 107/49 O2 Sat by Pulse Oximetry 96 Intake and Output: Intake & Output 04/10/20 04/11/20 04/12/20 04/13/20 11:59 11:59 11:59 11:59 Intake Total 1430 / 1430 930 / 930 960 / 960 1461 / 1461 Output Total 421 / 421 725 / 725 420 / 420 750 / 750 Balance 1009 / 1009 205 / 205 540 / 540 711 / 711 - Physical Exam Oriented: Normal Eyes: Normal Nose: Normal Throat: Normal Respiratory: Generalized, Diminished Cardiovascular: Normal, Edema (b/l LE edema, facial and upper ext edema improved) Auscultation: Bowel Sounds: Normal, Other (colostomy bag present) Tenderness: Normal Skin: Other (swelling of both upper ext - improving) Musculoskeletal: Back:Thoracic, Back:Lumbar, Back:Paraspinous Psychiatric: Normal Mood Description: Calm Affect: Normal Speech Pattern: Appropriate - Laboratory and Diagnostics Result Diagrams: 04/13/20 06:29 04/13/20 06:29 Labs: 04/03/20 12:32 Blood Blood Culture - Final 04/03/20 12:28 Blood Blood Culture - Final 04/04/20 09:11 Sputum - Endotracheal Wash Sputum Culture - Final Klebsiella Pneumoniae 04/04/20 09:11 Sputum - Endotracheal Wash - Final 04/03/20 21:22 Urine,Catheterized Urine Culture - Final Enterococcus Faecalis Laboratory WBC 6.7 X10^3/uL (3.6-10.0) 04/13/20 06:29 RBC 3.79 X10^6/uL (3.5-5.4) 04/13/20 06:29 Hgb 10.3 g/dL (12.0-16.0) L 04/13/20 06:29 Hct 32.6 % (36.0-47.0) L 04/13/20 06:29 MCV 86.0 fL (80.0-100.0) 04/13/20 06:29 MCH 27.2 pg (27.0-34.0) 04/13/20 06:29 MCHC 31.7 g/dL (33.0-35.0) L 04/13/20 06:29 RDW 15.8 % (11.6-16.5) 04/13/20 06:29 Plt Count 236 X10^3/uL (150.0-450.0) 04/13/20 06:29 Plt Count Comment Adequate (ADEQUATE) 04/04/20 05:55 MPV 7.9 fL (7.4-11.0) 04/13/20 06:29 Neut % (Auto) 68.8 % (42.0-75.0) 04/13/20 06:29 Lymph % (Auto) 15.0 % (21.0-51.0) L 04/13/20 06:29 [place] % (Auto) 7.9 % (0.0-13.0) 04/13/20 06:29 Eos % (Auto) 7.5 % (0.9-2.9) H 04/13/20 06:29 Baso % (Auto) 0.8 % (0.2-1.0) 04/13/20 06:29 Neut # (Auto) 4.6 x10^3/uL (2.2-4.8) 04/13/20 06:29 Lymph # (Auto) 1.0 X10^3/uL (1.3-2.9) L 04/13/20 06:29 [place] # (Auto) 0.5 x10^3/uL (0.3-0.8) 04/13/20 06:29 Eos # (Auto) 0.5 x10^3/uL (0.0-0.2) H 04/13/20 06:29 Baso # (Auto) 0.1 X10^3/uL (0.0-0.1) 04/13/20 06:29 Absolute Nucleated RBC 0.0 /100WBC 04/13/20 06:29 Total Counted 100 04/04/20 05:55 Neutrophils % (Manual) 81 % (39-76) H 04/04/20 05:55 Band Neutrophils % 3 % (0-10) 04/04/20 05:55 Lymphocytes % (Manual) 10 % (13-43) L 04/04/20 05:55 Monocytes % (Manual) 3 % (4-9) L 04/04/20 05:55 Eosinophils % (Manual) 3 % (0-6) 04/04/20 05:55 Plt Morphology Comment Normal (NORMAL) 04/04/20 05:55 RBC Morphology Normal (NORMAL) 04/04/20 05:55 PT 13.5 SECONDS (11.8-14.3) 04/04/20 05:55 INR Target Range - 04/04/20 05:55 INR 1.06 (0.8-1.3) 04/04/20 05:55 APTT 37.0 SECONDS (22.9-36.5) H 04/04/20 05:55 PTT Comment - 04/04/20 05:55 Sample Site Lr 04/08/20 05:00 ABG pH 7.400 (7.35-7.45) 04/08/20 05:00 ABG pCO2 47.0 mmHg (35.0-45.0) H 04/08/20 05:00 ABG pO2 78.0 mmHg (80.0-100.0) L 04/08/20 05:00 ABG HCO3 29.1 mmol/L (22-26) H 04/08/20 05:00 ABG O2 Saturation 95.0 % (90-100) 04/08/20 05:00 ABG Base Excess 3.6 mmol/L (-2.0-2.0) H 04/08/20 05:00 Christos Test Pos 04/08/20 05:00 A-a Gradient 113.0 mmHg 04/08/20 05:00 FiO2 35.0 04/08/20 05:00 Blood Gas Comments Mayi well 04/08/20 05:00 Sodium 140 mmol/L (136-145) 04/13/20 06:29 Corrected Sodium TNP 04/13/20 06:29 Potassium 5.1 mmol/L (3.5-5.1) 04/13/20 06:29 Chloride 107 mmol/L (98-107) 04/13/20 06:29 Carbon Dioxide 24.0 mmol/L (21-32) 04/13/20 06:29 BUN 48 mg/dL (7-18) H 04/13/20 06:29 Creatinine 2.86 mg/dL (0.55-1.02) H 04/13/20 06:29 Est GFR (MDRD) Af Amer 21 (>60) L 04/13/20 06:29 Est GFR (MDRD) Non-Af 18 (>60) L 04/13/20 06:29 Glucose 94 mg/dL (65-99) 04/13/20 06:29 POC Glucose (mg/dL) 80 mg/dL (65-99) 04/13/20 06:26 Lactic Acid 0.7 mmol/L (0.4-2.0) 04/03/20 12:32 Calcium 8.9 mg/dL (8.5-10.1) 04/13/20 06:29 Corrected Calcium 10.3 mg/dL (8.5-10.1) H 04/13/20 06:29 Magnesium 2.2 mg/dL (1.7-2.9) 04/04/20 05:55 Total Bilirubin 0.20 mg/dL (0.2-1.0) 04/13/20 06:29 AST 19 Units/L (15-37) 04/13/20 06:29 ALT 8 Units/L (12-78) L 04/13/20 06:29 Alkaline Phosphatase 45 Units/L (46-116) L 04/13/20 06:29 Creatine Kinase 84 Units/L (26-192) 04/04/20 05:55 CK-MB (CK-2) 4.6 ng/mL (0-4.0) H* 04/04/20 05:55 CK/CKMB % Calc 5.5 % (<4) 04/04/20 05:55 Troponin I 0.34 ng/mL (0-1.5) 04/04/20 05:55 B-Natriuretic Peptide 162 pg/mL (0-79) H 04/10/20 05:41 Total Protein 6.4 g/dL (6.4-8.2) 04/13/20 06:29 Albumin 2.3 g/dL (3.4-5.0) L 04/13/20 06:29 Globulin 4.1 g/dL (2.5-4.5) 04/13/20 06:29 Albumin/Globulin Ratio 0.6 Ratio (1.1-2.1) L 04/13/20 06:29 Specimen Type Catherized urine 04/03/20 21: Urine Color Yellow (YELLOW) 04/03/20 21: Urine Appearance Cloudy (CLEAR) 04/03/20 21: Urine pH 5.0 (5.0 - 8.0) 04/03/20 21:22 Ur Specific [place] 1.025 (1.000-1.030) 04/03/20 21:22 Urine Protein 4+ (NEGATIVE) 04/03/20 21: Urine Glucose (UA) Negative (NEGATIVE) 04/03/20 21:22 Urine Ketones Negative (NEGATIVE) 04/03/20 21:22 Urine Occult Blood 1+ (NEGATIVE) 04/03/20 21: Urine Nitrite Negative (NEGATIVE) 04/03/20 21: Urine Bilirubin Negative (NEGATIVE) 04/03/20 21:22 Urine Urobilinogen Normal (NORMAL) 04/03/20 21:22 Ur Leukocyte Esterase 2+ (NEGATIVE) 04/03/20 21:22 Urine RBC 0-2 /HPF (0-3) 04/03/20 21: Urine WBC 5-10 /HPF (0-5) A 04/03/20 21:22 Ur Squamous Epith Cells Few /HPF (NEGATIVE) 04/03/20 21: Urine Bacteria 2+ /HPF (NEGATIVE) 04/03/20 21: Coarse Granular Casts Few /HPF (NEGATIVE) 04/03/20 21:22 Urine Yeast Few /HPF (NEGATIVE) 04/03/20 21:22 Ur Culture Indicated? Yes/culture set up 04/03/20 21:22 Urine Creatinine 125.85 mg/dL (29-226) 04/11/20 14:01 Blood Type O POSITIVE 04/06/20 13:00 Antibody Screen Negative 04/06/20 13:00 Crossmatch See Detail 04/06/20 13:00
--- NOTE | 2020-04-13 11:51 | PCM.PROG ---
Progress Note - Progress Note for Day of Date of Exam: 04/13/20 - Subjective Subjective: IS A 65 YEAR OLD PATIENT OF . SHE HAS BEEN TREATED FOR RESPIRATORY FAILURE AND ACUTE RENAL FAILURE. RESPIRATORY FAILURE HAS RESOLVED. SHE HAS BEEN ACCEPTED FOR REHAB AT THE [facility]. WE ARE AWAITING COVID RESULTS PRIOR TO TRANSFER. SHE CONTINUES WITH GENERALIZED PAIN AND WEAKNESS THIS MORNING. COUGH IS INTERMITTENT. ON EXAMINATION, HEART IS REGULAR IN RATE AND RHYTHM. BILATERAL LUNGS ARE NOTED WITH DIMINISHED LUNG SOUNDS THROUGHOUT. ABDOMEN IS OBESE AND NON-TENDER. NORMAL BOWEL SOUNDS NOTED IN ALL QUADRANTS. HER VITALS THIS MORNING ARE: 97.7-73-22-96%-105/52. LABS WERE OBTAINED. ABNORMAL LAB VALUES INCLUDE THE FOLLOWING: HGB 10.3, HCT 32.6, BUN 48, CREATININE 2.86, AST 8, ALT 45, ALBUMIN 2.3. SPUTUM CULTURE WAS POSITIVE FOR KLEBSIELLA PNEUMONIAE. URINE CULTURE WAS POSITVE FOR ENTEROCOCCUS FAECALIS. A CHEST XRAY WAS OBTAINED AND REVEALED: Stable cardiomegaly with slowly resolving pulmonary edema. Hazy perihilar and bibasilar opacities which are less prominent. Small bibasilar pleural effusions which are more prominent. SHE IS CURRENTLY RECEIVNG ZOSYN 3.375G IV BID, HEPARIN 5,000UNITS SC BID, DUONEBS Q6H, HUMULIN R SLIDING SCALE, LEVEMIR 10 UNITS SC BID, AND HOME MEDICATIONS OF XANAX, ABILIFY, SINEMET, COREG, PEPCID, NEURONTIN, HYDRALAZINE, AND ZOCOR WERE RESUMED. TODAY, WE WILL GIVE A 500 ML BOLUS OF NORMAL SALINE AND START DILAUDID 1MG IV Q8H PRN. OTHERWISE, WE WILL CONTINUE WITH CURRENT PLAN OF CARE TODAY. OTHERWISE, WE WILL FOLLOW UP WITH AM LABS AND CONTINUE TO MONITOR. - Past Medical Family Social History Past Med/Fam/Surg Hx: No changes since H&P Allergies: Allergies oxycodone Allergy (Verified 04/03/20 12:08) - Review of Systems ROS: Changes notes (describe) - Vital Signs and I&O's Vital Signs: Temperature 97.7 F Pulse Rate [Left Brachial] 73 Pulse Rate 73 Respiratory Rate 18 Blood Pressure [Right Arm] 105/52 Blood Pressure [Left Arm] 154/69 Blood Pressure [Right Arm] 160/76 Blood Pressure 107/49 O2 Sat by Pulse Oximetry 96 Intake and Output: Intake & Output 04/10/20 04/11/20 04/12/20 04/13/20 11:59 11:59 11:59 11:59 Intake Total 1430 / 1430 930 / 930 960 / 960 1461 / 1461 Output Total 421 / 421 725 / 725 420 / 420 750 / 750 Balance 1009 / 1009 205 / 205 540 / 540 711 / 711 - Physical Exam Oriented: Normal Eyes: Normal Nose: Normal Throat: Normal Respiratory: Generalized, Diminished Cardiovascular: Normal, Edema (b/l LE edema, facial and upper ext edema improv ed) Auscultation: Bowel Sounds: Normal, Other (colostomy bag present) Palpation: Normal Tenderness: Normal Skin: Other (swelling of both upper ext - improving) Musculoskeletal: Back:Thoracic, Back:Lumbar, Back:Paraspinous Psychiatric: Normal Mood Description: Calm Affect: Normal Speech Pattern: Appropriate - Laboratory and Diagnostics Result Diagrams: 04/13/20 06:29 04/13/20 06:29 Labs: 04/03/20 12:32 Blood Blood Culture - Final 04/03/20 12:28 Blood Blood Culture - Final 04/04/20 09:11 Sputum - Endotracheal Wash Sputum Culture - Final Klebsiella Pneumoniae 04/04/20 09:11 Sputum - Endotracheal Wash - Final 04/03/20 21:22 Urine,Catheterized Urine Culture - Final Enterococcus Faecalis Laboratory WBC 6.7 X10^3/uL (3.6-10.0) 04/13/20 06:29 RBC 3.79 X10^6/uL (3.5-5.4) 04/13/20 06:29 Hgb 10.3 g/dL (12.0-16.0) L 04/13/20 06:29 Hct 32.6 % (36.0-47.0) L 04/13/20 06:29 MCV 86.0 fL (80.0-100.0) 04/13/20 06:29 MCH 27.2 pg (27.0-34.0) 04/13/20 06:29 MCHC 31.7 g/dL (33.0-35.0) L 04/13/20 06:29 RDW 15.8 % (11.6-16.5) 04/13/20 06:29 Plt Count 236 X10^3/uL (150.0-450.0) 04/13/20 06:29 Plt Count Comment Adequate (ADEQUATE) 04/04/20 05:55 MPV 7.9 fL (7.4-11.0) 04/13/20 06:29 Neut % (Auto) 68.8 % (42.0-75.0) 04/13/20 06:29 Lymph % (Auto) 15.0 % (21.0-51.0) L 04/13/20 06:29 [place] % (Auto) 7.9 % (0.0-13.0) 04/13/20 06:29 Eos % (Auto) 7.5 % (0.9-2.9) H 04/13/20 06:29 Baso % (Auto) 0.8 % (0.2-1.0) 04/13/20 06:29 Neut # (Auto) 4.6 x10^3/uL (2.2-4.8) 04/13/20 06:29 Lymph # (Auto) 1.0 X10^3/uL (1.3-2.9) L 04/13/20 06:29 [place] # (Auto) 0.5 x10^3/uL (0.3-0.8) 04/13/20 06:29 Eos # (Auto) 0.5 x10^3/uL (0.0-0.2) H 04/13/20 06:29 Baso # (Auto) 0.1 X10^3/uL (0.0-0.1) 04/13/20 06:29 Absolute Nucleated RBC 0.0 /100WBC 04/13/20 06:29 Total Counted 100 04/04/20 05:55 Neutrophils % (Manual) 81 % (39-76) H 04/04/20 05:55 Band Neutrophils % 3 % (0-10) 04/04/20 05:55 Lymphocytes % (Manual) 10 % (13-43) L 04/04/20 05:55 Monocytes % (Manual) 3 % (4-9) L 04/04/20 05:55 Eosinophils % (Manual) 3 % (0-6) 04/04/20 05:55 Plt Morphology Comment Normal (NORMAL) 04/04/20 05:55 RBC Morphology Normal (NORMAL) 04/04/20 05:55 PT 13.5 SECONDS (11.8-14.3) 04/04/20 05:55 INR Target Range - 04/04/20 05:55 INR 1.06 (0.8-1.3) 04/04/20 05:55 APTT 37.0 SECONDS (22.9-36.5) H 04/04/20 05:55 PTT Comment - 04/04/20 05:55 Sample Site Lr 04/08/20 05:00 ABG pH 7.400 (7.35-7.45) 04/08/20 05:00 ABG pCO2 47.0 mmHg (35.0-45.0) H 04/08/20 05:00 ABG pO2 78.0 mmHg (80.0-100.0) L 04/08/20 05:00 ABG HCO3 29.1 mmol/L (22-26) H 04/08/20 05:00 ABG O2 Saturation 95.0 % (90-100) 04/08/20 05:00 ABG Base Excess 3.6 mmol/L (-2.0-2.0) H 04/08/20 05:00 Christos Test Pos 04/08/20 05:00 A-a Gradient 113.0 mmHg 04/08/20 05:00 FiO2 35.0 04/08/20 05:00 Blood Gas Comments Mayi well 04/08/20 05:00 Sodium 140 mmol/L (136-145) 04/13/20 06:29 Corrected Sodium TNP 04/13/20 06:29 Potassium 5.1 mmol/L (3.5-5.1) 04/13/20 06:29 Chloride 107 mmol/L (98-107) 04/13/20 06:29 Carbon Dioxide 24.0 mmol/L (21-32) 04/13/20 06:29 BUN 48 mg/dL (7-18) H 04/13/20 06:29 Creatinine 2.86 mg/dL (0.55-1.02) H 04/13/20 06:29 Est GFR (MDRD) Af Amer 21 (>60) L 04/13/20 06:29 Est GFR (MDRD) Non-Af 18 (>60) L 04/13/20 06:29 Glucose 94 mg/dL (65-99) 04/13/20 06:29 POC Glucose (mg/dL) 80 mg/dL (65-99) 04/13/20 06:26 Lactic Acid 0.7 mmol/L (0.4-2.0) 04/03/20 12:32 Calcium 8.9 mg/dL (8.5-10.1) 04/13/20 06:29 Corrected Calcium 10.3 mg/dL (8.5-10.1) H 04/13/20 06:29 Magnesium 2.2 mg/dL (1.7-2.9) 04/04/20 05:55 Total Bilirubin 0.20 mg/dL (0.2-1.0) 04/13/20 06:29 AST 19 Units/L (15-37) 04/13/20 06:29 ALT 8 Units/L (12-78) L 04/13/20 06:29 Alkaline Phosphatase 45 Units/L (46-116) L 04/13/20 06:29 Creatine Kinase 84 Units/L (26-192) 04/04/20 05:55 CK-MB (CK-2) 4.6 ng/mL (0-4.0) H* 04/04/20 05:55 CK/CKMB % Calc 5.5 % (<4) 04/04/20 05:55 Troponin I 0.34 ng/mL (0-1.5) 04/04/20 05:55 B-Natriuretic Peptide 162 pg/mL (0-79) H 04/10/20 05:41 Total Protein 6.4 g/dL (6.4-8.2) 04/13/20 06:29 Albumin 2.3 g/dL (3.4-5.0) L 04/13/20 06:29 Globulin 4.1 g/dL (2.5-4.5) 04/13/20 06:29 Albumin/Globulin Ratio 0.6 Ratio (1.1-2.1) L 04/13/20 06:29 Specimen Type Catherized urine 04/03/20 21:22 Urine Color Yellow (YELLOW) 04/03/20 21:22 Urine Appearance Cloudy (CLEAR) 04/03/20 21:22 Urine pH 5.0 (5.0 - 8.0) 04/03/20 21: Ur Specific [place] 1.025 (1.000-1.030) 04/03/20 21: Urine Protein 4+ (NEGATIVE) 04/03/20 21: Urine Glucose (UA) Negative (NEGATIVE) 04/03/20 21: Urine Ketones Negative (NEGATIVE) 04/03/20 21: Urine Occult Blood 1+ (NEGATIVE) 04/03/20 21: Urine Nitrite Negative (NEGATIVE) 04/03/20 21: Urine Bilirubin Negative (NEGATIVE) 04/03/20 21: Urine Urobilinogen Normal (NORMAL) 04/03/20 21: Ur Leukocyte Esterase 2+ (NEGATIVE) 04/03/20 21: Urine RBC 0-2 /HPF (0-3) 04/03/20 21: Urine WBC 5-10 /HPF (0-5) A 04/03/20 21:22 Ur Squamous Epith Cells Few /HPF (NEGATIVE) 04/03/20 21: Urine Bacteria 2+ /HPF (NEGATIVE) 04/03/20 21: Coarse Granular Casts Few /HPF (NEGATIVE) 04/03/20 21: Urine Yeast Few /HPF (NEGATIVE) 04/03/20 21: Ur Culture Indicated? Yes/culture set up 04/03/20 21: Urine Creatinine 125.85 mg/dL (29-226) 04/11/20 14:01 Blood Type O POSITIVE 04/06/20 13:00 Antibody Screen Negative 04/06/20 13:00 Crossmatch See Detail 04/06/20 13:00
[2020-04-13] MEDS: NS 500 ML IV 500 ML IV SCH ×3 (15:03→22:17)
[2020-04-13] MEDS: SNACK - Diabetic Appropriate PO SCH (20:52)
[2020-04-13] MEDS: ZOCOR TAB 40 MG PO SCH (20:57)
[2020-04-14] MEDS: DILAUDID INJ IVP PRN (03:00)
[2020-04-14] MEDS: NS 500 ML IV 500 ML IV SCH (04:19)
[2020-04-14] MEDS: DUONEB 0.5 MG/3 MG (3 mL) NEB SCH ×4 (05:49→17:20)
[2020-04-14 06:21] LABS: BASOPHILS # (AUTO) 0.1 X10^3/uL (0.0-0.1); BASOPHILS % (AUTO) 1.1 % (0.2-1.0); EOSINOPHILS # (AUTO) 0.4 x10^3/uL (0.0-0.2); EOSINOPHILS % (AUTO) 6.2 % (0.9-2.9); HEMATOCRIT 30.6 % (36.0-47.0); HEMOGLOBIN 9.8 g/dL (12.0-16.0); LYMPHOCYTES % (AUTO) 15.5 % (21.0-51.0); MEAN CORPUSCULAR HEMOGLOBIN 27.5 pg (27.0-34.0); MEAN CORPUSCULAR HGB CONC 31.9 g/dL (33.0-35.0); MEAN CORPUSCULAR VOLUME 86.3 fL (80.0-100.0); MEAN PLATELET VOLUME 8.2 fL (7.4-11.0); MONOCYTES # (AUTO) 0.5 x10^3/uL (0.3-0.8); MONOCYTES % (AUTO) 7.5 % (0.0-13.0); NEUTROPHILS # (AUTO) 4.4 x10^3/uL (2.2-4.8); NEUTROPHILS % (AUTO) 69.7 % (42.0-75.0); PLATELET COUNT 243 X10^3/uL (150.0-450.0); RED BLOOD COUNT 3.55 X10^6/uL (3.5-5.4); RED CELL DISTRIBUTION WIDTH 15.7 % (11.6-16.5); WHITE BLOOD COUNT 6.3 X10^3/uL (3.6-10.0)
[2020-04-14 06:35] LABS: ALBUMIN 2.2 g/dL (3.4-5.0); CALCIUM 8.7 mg/dL (8.5-10.1); CARBON DIOXIDE 24.2 mmol/L (21-32); COR CA(FOR HYPOALB) 10.1 mg/dL (8.5-10.1); CREATININE 2.9 mg/dL (0.55-1.02); TOTAL PROTEIN 6.2 g/dL (6.4-8.2)
[2020-04-14] MEDS ORDERED: DILAUDID INJ IVP PRN (08:00)
[2020-04-14] MEDS: ABILIFY PO SCH (09:40)
[2020-04-14] MEDS: NYSTATIN POWDER TOP SCH ×2 (09:45→21:40)
[2020-04-14] MEDS: APRESOLINE TAB 25 MG PO SCH ×2 (09:45→21:26)
[2020-04-14] MEDS: EUCERIN TOP SCH ×2 (09:45→21:27)
[2020-04-14] MEDS: ZOSYN VIAL 3.375 GRAMS 3.375 G in NS 100 ML IV + SPIKE MINIBAG* 100 ML IV SCH ×2 (09:45→21:42)
[2020-04-14] MEDS: LEVEMIR SC SCH ×2 (09:45→21:28)
[2020-04-14] MEDS: SINEMET (PLAIN) 10/100 MG PO SCH ×2 (09:45→21:40)
[2020-04-14] MEDS: NEURONTIN TAB 600 MG PO SCH (09:45)
[2020-04-14] MEDS: SYNTHROID 125 mcg TAB PO SCH (09:45)
[2020-04-14] MEDS: PEPCID TAB 20 MG PO SCH (09:45)
[2020-04-14] MEDS: XANAX PO SCH ×2 (09:45→21:43)
[2020-04-14] MEDS: HEPARIN SODIUM INJ 5000 UNITS SC SCH ×2 (09:45→21:27)
[2020-04-14] MEDS: NORCO 7.5/325 MG TAB PO SCH ×2 (09:45→20:00)
[2020-04-14] MEDS: TEMOVATE CREAM EXT SCH ×2 (09:45→21:41)
[2020-04-14] MEDS: COREG TAB 12.5 MG PO SCH ×2 (09:45→21:27)
--- NOTE | 2020-04-14 11:40 | PCM.PROG ---
Progress Note - Progress Note for Day of Date of Exam: 04/14/20 - Subjective Subjective: IS A 65 YEAR OLD PATIENT OF . SHE HAS BEEN TREATED FOR RESPIRATORY FAILURE AND ACUTE RENAL FAILURE. RESPIRATORY FAILURE HAS RESOLVED. SHE HAS BEEN ACCEPTED FOR REHAB AT THE [facility]. WE ARE AWAITING COVID RESULTS PRIOR TO TRANSFER. SHE CONTINUES WITH GENERALIZED PAIN AND WEAKNESS THIS MORNING. COUGH IS INTERMITTENT. ON EXAMINATION, HEART IS REGULAR IN RATE AND RHYTHM. BILATERAL LUNGS ARE NOTED WITH DIMINISHED LUNG SOUNDS THROUGHOUT. ABDOMEN IS OBESE AND NON-TENDER. NORMAL BOWEL SOUNDS NOTED IN ALL QUADRANTS. HER VITALS THIS MORNING ARE: 97.8-63-20-95%-104/52. LABS WERE OBTAINED. ABNORMAL LAB VALUES INCLUDE THE FOLLOWING: HGB 9.8, HCT 30.6, POTASSIUM 5.7, BUN 48, CREATININE 2.90, GLUCOSE 119, TOTAL BILI 0.10, ALT 7, ALK PHOS 45, TOTAL PROTEIN 6.2, ALBUMIN 2.2. SPUTUM CULTURE WAS POSITIVE FOR KLEBSIELLA PNEUMONIAE. URINE CULTURE WAS POSITVE FOR ENTEROCOCCUS FAECALIS. A CHEST XRAY WAS OBTAINED AND REVEALED: Stable cardiomegaly with slowly resolving pulmonary edema. Hazy perihilar and bibasilar opacities which are less prominent. Small bibasilar pleural effusions which are more prominent. SHE IS CURRENTLY RECEIVNG ZOSYN 3.375G IV BID, HEPARIN 5,000UNITS SC BID, DUONEBS Q6H, HUMULIN R SLIDING SCALE, LEVEMIR 10 UNITS SC BID, DILAUDID 1MG IV Q8H PRN, AND HOME MEDICATIONS OF XANAX, ABILIFY, SINEMET, COREG, PEPCID, NEURONTIN, HYDRALAZINE, AND ZOCOR WERE RESUMED. TODAY, WE WILL START NORMAL SALINE AT 100 ML/HR AND CONTINUE TO HOLD LASIX DUE TO ELEVATED BUN/CREATININE. OTHERWISE, WE WILL CONTINUE WITH CURRENT PLAN OF CARE TODAY. WE WILL FOLLOW UP WITH AM LABS AND CONTINUE TO MONITOR. - Past Medical Family Social History Past Med/Fam/Surg Hx: No changes since H&P Allergies: Allergies oxycodone Allergy (Verified 04/03/20 12:08) - Review of Systems ROS: Changes notes (describe) - Vital Signs and I&O's Vital Signs: Temperature 97.8 F Pulse Rate [Left Brachial] 63 Pulse Rate 66 Respiratory Rate 12 Blood Pressure [Right Arm] 117/53 Blood Pressure [Left Arm] 104/52 Blood Pressure [Right Arm] 160/76 Blood Pressure 107/49 O2 Sat by Pulse Oximetry 95 Intake and Output: Intake & Output 04/11/20 04/12/20 04/13/20 04/14/20 11:59 11:59 11:59 11:59 Intake Total 930 / 930 960 / 960 1461 / 1461 1970 / 1969 Output Total 725 / 725 420 / 420 750 / 750 1000 / 1000 Balance 205 / 205 540 / 540 711 / 711 970 / 970 - Physical Exam Oriented: Normal Eyes: Normal Nose: Normal Throat: Normal Respiratory: Generalized, Diminished Cardiovascular: Normal, Edema (b/l LE edema, facial and upper ext edema impr shant) Auscultation: Bowel Sounds: Normal, Other (colostomy bag present) Palpation: Normal Tenderness: Normal Skin: Other (swelling of both upper ext - improving) Musculoskeletal: Back:Thoracic, Back:Lumbar, Back:Paraspinous Psychiatric: Normal Mood Description: Calm Affect: Normal Speech Pattern: Appropriate - Laboratory and Diagnostics Result Diagrams: 04/14/20 05:15 04/14/20 05:15 Labs: 04/03/20 12:32 Blood Blood Culture - Final 04/03/20 12:28 Blood Blood Culture - Final 04/04/20 09:11 Sputum - Endotracheal Wash Sputum Culture - Final Klebsiella Pneumoniae 04/04/20 09:11 Sputum - Endotracheal Wash - Final 04/03/20 21:22 Urine,Catheterized Urine Culture - Final Enterococcus Faecalis Laboratory WBC 6.3 X10^3/uL (3.6-10.0) 04/14/20 05:15 RBC 3.55 X10^6/uL (3.5-5.4) 04/14/20 05:15 Hgb 9.8 g/dL (12.0-16.0) L 04/14/20 05:15 Hct 30.6 % (36.0-47.0) L 04/14/20 05:15 MCV 86.3 fL (80.0-100.0) 04/14/20 05:15 MCH 27.5 pg (27.0-34.0) 04/14/20 05:15 MCHC 31.9 g/dL (33.0-35.0) L 04/14/20 05:15 RDW 15.7 % (11.6-16.5) 04/14/20 05:15 Plt Count 243 X10^3/uL (150.0-450.0) 04/14/20 05:15 Plt Count Comment Adequate (ADEQUATE) 04/04/20 05:55 MPV 8.2 fL (7.4-11.0) 04/14/20 05:15 Neut % (Auto) 69.7 % (42.0-75.0) 04/14/20 05:15 Lymph % (Auto) 15.5 % (21.0-51.0) L 04/14/20 05:15 [place] % (Auto) 7.5 % (0.0-13.0) 04/14/20 05:15 Eos % (Auto) 6.2 % (0.9-2.9) H 04/14/20 05:15 Baso % (Auto) 1.1 % (0.2-1.0) H 04/14/20 05:15 Neut # (Auto) 4.4 x10^3/uL (2.2-4.8) 04/14/20 05:15 Lymph # (Auto) 1.0 X10^3/uL (1.3-2.9) L 04/14/20 05:15 [place] # (Auto) 0.5 x10^3/uL (0.3-0.8) 04/14/20 05:15 Eos # (Auto) 0.4 x10^3/uL (0.0-0.2) H 04/14/20 05:15 Baso # (Auto) 0.1 X10^3/uL (0.0-0.1) 04/14/20 05:15 Absolute Nucleated RBC 0.0 /100WBC 04/14/20 05:15 Total Counted 100 04/04/20 05:55 Neutrophils % (Manual) 81 % (39-76) H 04/04/20 05:55 Band Neutrophils % 3 % (0-10) 04/04/20 05:55 Lymphocytes % (Manual) 10 % (13-43) L 04/04/20 05:55 Monocytes % (Manual) 3 % (4-9) L 04/04/20 05:55 Eosinophils % (Manual) 3 % (0-6) 04/04/20 05:55 Plt Morphology Comment Normal (NORMAL) 04/04/20 05:55 RBC Morphology Normal (NORMAL) 04/04/20 05:55 PT 13.5 SECONDS (11.8-14.3) 04/04/20 05:55 INR Target Range - 04/04/20 05:55 INR 1.06 (0.8-1.3) 04/04/20 05:55 APTT 37.0 SECONDS (22.9-36.5) H 04/04/20 05:55 PTT Comment - 04/04/20 05:55 Sample Site Lr 04/08/20 05:00 ABG pH 7.400 (7.35-7.45) 04/08/20 05:00 ABG pCO2 47.0 mmHg (35.0-45.0) H 04/08/20 05:00 ABG pO2 78.0 mmHg (80.0-100.0) L 04/08/20 05:00 ABG HCO3 29.1 mmol/L (22-26) H 04/08/20 05:00 ABG O2 Saturation 95.0 % (90-100) 04/08/20 05:00 ABG Base Excess 3.6 mmol/L (-2.0-2.0) H 04/08/20 05:00 Christos Test Pos 04/08/20 05:00 A-a Gradient 113.0 mmHg 04/08/20 05:00 FiO2 35.0 04/08/20 05:00 Blood Gas Comments Mayi well 04/08/20 05:00 Sodium 139 mmol/L (136-145) 04/14/20 05:15 Corrected Sodium 139 mmol/L (136-145) 04/14/20 05:15 Potassium 5.7 mmol/L (3.5-5.1) H 04/14/20 05:15 Chloride 107 mmol/L (98-107) 04/14/20 05:15 Carbon Dioxide 24.2 mmol/L (21-32) 04/14/20 05:15 BUN 48 mg/dL (7-18) H 04/14/20 05:15 Creatinine 2.90 mg/dL (0.55-1.02) H 04/14/20 05:15 Est GFR (MDRD) Af Amer 21 (>60) L 04/14/20 05:15 Est GFR (MDRD) Non-Af 17 (>60) L 04/14/20 05:15 Glucose 119 mg/dL (65-99) H 04/14/20 05:15 POC Glucose (mg/dL) 126 mg/dL (65-99) H 04/14/20 05:09 Lactic Acid 0.7 mmol/L (0.4-2.0) 04/03/20 12:32 Calcium 8.7 mg/dL (8.5-10.1) 04/14/20 05:15 Corrected Calcium 10.1 mg/dL (8.5-10.1) 04/14/20 05:15 Magnesium 2.2 mg/dL (1.7-2.9) 04/04/20 05:55 Total Bilirubin 0.10 mg/dL (0.2-1.0) L 04/14/20 05:15 AST 17 Units/L (15-37) 04/14/20 05:15 ALT 7 Units/L (12-78) L 04/14/20 05:15 Alkaline Phosphatase 45 Units/L (46-116) L 04/14/20 05:15 Creatine Kinase 84 Units/L (26-192) 04/04/20 05:55 CK-MB (CK-2) 4.6 ng/mL (0-4.0) H* 04/04/20 05:55 CK/CKMB % Calc 5.5 % (<4) 04/04/20 05:55 Troponin I 0.34 ng/mL (0-1.5) 04/04/20 05:55 B-Natriuretic Peptide 162 pg/mL (0-79) H 04/10/20 05:41 Total Protein 6.2 g/dL (6.4-8.2) L 04/14/20 05:15 Albumin 2.2 g/dL (3.4-5.0) L 04/14/20 05:15 Globulin 4.0 g/dL (2.5-4.5) 04/14/20 05:15 Albumin/Globulin Ratio 0.6 Ratio (1.1-2.1) L 04/14/20 05:15 Specimen Type Catherized urine 04/03/20 21:22 Urine Color Yellow (YELLOW) 04/03/20 21: Urine Appearance Cloudy (CLEAR) 04/03/20 21: Urine pH 5.0 (5.0 - 8.0) 04/03/20 21: Ur Specific [place] 1.025 (1.000-1.030) 04/03/20 21: Urine Protein 4+ (NEGATIVE) 04/03/20 21: Urine Glucose (UA) Negative (NEGATIVE) 04/03/20 21: Urine Ketones Negative (NEGATIVE) 04/03/20 21: Urine Occult Blood 1+ (NEGATIVE) 04/03/20 21: Urine Nitrite Negative (NEGATIVE) 04/03/20 21: Urine Bilirubin Negative (NEGATIVE) 04/03/20 21: Urine Urobilinogen Normal (NORMAL) 04/03/20 21: Ur Leukocyte Esterase 2+ (NEGATIVE) 04/03/20 21: Urine RBC 0-2 /HPF (0-3) 04/03/20 21: Urine WBC 5-10 /HPF (0-5) A 04/03/20 21: Ur Squamous Epith Cells Few /HPF (NEGATIVE) 04/03/20 21: Urine Bacteria 2+ /HPF (NEGATIVE) 04/03/20 21: Coarse Granular Casts Few /HPF (NEGATIVE) 04/03/20 21: Urine Yeast Few /HPF (NEGATIVE) 04/03/20 21: Ur Culture Indicated? Yes/culture set up 04/03/20 21: Urine Creatinine 125.85 mg/dL (29-226) 04/11/20 14:01 Blood Type O POSITIVE 04/06/20 13:00 Antibody Screen Negative 04/06/20 13:00 Crossmatch See Detail 04/06/20 13:00
[2020-04-14] MEDS: NS 1000 ML 1,000 ML IV SCH (15:14)
[2020-04-14] MEDS: SNACK - Diabetic Appropriate PO SCH (21:00)
[2020-04-14] MEDS: ZOCOR TAB 40 MG PO SCH (21:42)
[2020-04-15] MEDS: DUONEB 0.5 MG/3 MG (3 mL) NEB SCH ×3 (00:50→17:18)
[2020-04-15] MEDS: NS 1000 ML 1,000 ML IV SCH ×3 (01:05→18:07)
--- NOTE | 2020-04-15 05:40 | RAD ---
HISTORYSOBSTUDYCHEST, 1 [id number]/18/2020FINDINGSThe trachea is midline. The cardiac silhouette is enlarged, similar to prior exam.. Bilateral perihilar and lower lung zone airspace opacity/infiltrates again seen. Bilateral pleural effusions similar to prior exam. No pneumothorax. No other significant interval change.. The bony thorax is unremarkable.IMPRESSIONNo significant interval change.Electronically signed by: Adele Wilkerson (Apr 15, 2020 05:39:31)
[2020-04-15 06:32] LABS: BASOPHILS # (AUTO) 0.1 X10^3/uL (0.0-0.1); EOSINOPHILS # (AUTO) 0.4 x10^3/uL (0.0-0.2); EOSINOPHILS % (AUTO) 6.1 % (0.9-2.9); HEMOGLOBIN 10.5 g/dL (12.0-16.0); LYMPHOCYTES % (AUTO) 15.3 % (21.0-51.0); MEAN CORPUSCULAR HEMOGLOBIN 27.4 pg (27.0-34.0); MEAN CORPUSCULAR HGB CONC 31.8 g/dL (33.0-35.0); MEAN CORPUSCULAR VOLUME 86.1 fL (80.0-100.0); MEAN PLATELET VOLUME 8.2 fL (7.4-11.0); MONOCYTES # (AUTO) 0.4 x10^3/uL (0.3-0.8); MONOCYTES % (AUTO) 5.7 % (0.0-13.0); NEUTROPHILS # (AUTO) 4.8 x10^3/uL (2.2-4.8); NEUTROPHILS % (AUTO) 71.9 % (42.0-75.0); PLATELET COUNT 278 X10^3/uL (150.0-450.0); RED BLOOD COUNT 3.83 X10^6/uL (3.5-5.4); RED CELL DISTRIBUTION WIDTH 15.7 % (11.6-16.5); WHITE BLOOD COUNT 6.7 X10^3/uL (3.6-10.0)
[2020-04-15 06:47] LABS: ALANINE AMINOTRANSFERASE 6 Units/L (12-78); ALBUMIN 2.4 g/dL (3.4-5.0); ALKALINE PHOSPHATASE 50 Units/L (46-116); ASPARTATE AMINO TRANSFERASE 19 Units/L (15-37); BLOOD UREA NITROGEN 48 mg/dL (7-18); CALCIUM 8.8 mg/dL (8.5-10.1); CARBON DIOXIDE 21.5 mmol/L (21-32); CHLORIDE 108 mmol/L (98-107); COR CA(FOR HYPOALB) 10.1 mg/dL (8.5-10.1); CREATININE 2.87 mg/dL (0.55-1.02); SODIUM 140 mmol/L (136-145); TOTAL PROTEIN 6.6 g/dL (6.4-8.2); eGFR NON BLACK RACES 17 (>60)
[2020-04-15 07:10] LABS: PLATELET MORPHOLOGY COMMENT NORMAL (NORMAL)
[2020-04-15] MEDS: NEURONTIN TAB 600 MG PO SCH (08:20)
[2020-04-15] MEDS: XANAX PO SCH ×2 (08:20→21:00)
[2020-04-15] MEDS: SYNTHROID 125 mcg TAB PO SCH (08:20)
[2020-04-15] MEDS: TEMOVATE CREAM EXT SCH ×2 (08:20→21:00)
[2020-04-15] MEDS: NYSTATIN POWDER TOP SCH ×2 (08:20→21:00)
[2020-04-15] MEDS: NORCO 7.5/325 MG TAB PO SCH ×2 (08:20→21:00)
[2020-04-15] MEDS: APRESOLINE TAB 25 MG PO SCH ×4 (08:27→21:00)
[2020-04-15] MEDS: COREG TAB 12.5 MG PO SCH ×2 (08:27→21:00)
[2020-04-15] MEDS: HEPARIN SODIUM INJ 5000 UNITS SC SCH ×2 (08:28→21:10)
[2020-04-15] MEDS: EUCERIN TOP SCH ×2 (08:28→21:00)
[2020-04-15] MEDS: LEVEMIR SC SCH ×2 (08:29→22:19)
[2020-04-15] MEDS: SINEMET (PLAIN) 10/100 MG PO SCH ×2 (09:15→21:00)
[2020-04-15] MEDS: ZOSYN VIAL 3.375 GRAMS 3.375 G in NS 100 ML IV + SPIKE MINIBAG* 100 ML IV SCH ×2 (10:47→21:00)
--- NOTE | 2020-04-15 11:22 | PCM.PROG ---
Progress Note - Progress Note for Day of Date of Exam: 04/15/20 - Subjective Subjective: IS A 65 YEAR OLD PATIENT OF . SHE HAS BEEN TREATED FOR RESPIRATORY FAILURE AND ACUTE RENAL FAILURE. RESPIRATORY FAILURE HAS RESOLVED. SHE HAS BEEN ACCEPT[facility]. SHE CONTINUES WITH GENERALIZED PAIN AND WEAKNESS THIS MORNING. COUGH IS IN TERMITTENT. ON EXAMINATION, HEART IS REGULAR IN RATE AND RHYTHM. BILATERAL LUNGS ARE NOTED WITH DIMINISHED LUNG SOUNDS THROUGHOUT. ABDOMEN IS OBESE AND NON- TENDER. NORMAL BOWEL SOUNDS NOTED IN ALL QUADRANTS. HER VITALS THIS MORNING ARE: 96.6-67-14-95%NC-130/62. LABS WERE OBTAINED. ABNORMAL LAB VALUES INCLUDE THE FOLLOWING: HGB 10.5, HCT 33.0, POTASSIUM 5.7, CHLORIDE 108, BUN 48, CREATININE 2.87, ALT 6, ALBUMIN 2.4. SPUTUM CULTURE WAS POSITIVE FOR KLEBSIELLA PNEUMONIAE. URINE CULTURE WAS POSITVE FOR ENTEROCOCCUS FAECALIS. A CHEST XRAY WAS OBTAINED AND REVEALED: The trachea is midline. The cardiac silhouette is enlarged, similar to prior exam. Bilateral perihilar and lower lung zone airspace opacity/infiltrates again seen. Bilateral pleural effusions similar to prior exam. No pneumothorax. No other significant interval change. The bony thorax is unremarkable. SHE IS CURRENTLY RECEIVNG NS AT 100 ML/HR, ZOSYN 3.375G IV BID, HEPARIN 5,000UNITS SC BID, DUONEBS Q6H, HUMULIN R SLIDING SCALE, LEVEMIR 10 UNITS SC BID, DILAUDID 1MG IV Q8H PRN, AND HOME MEDICATIONS OF XANAX, ABILIFY, SINEMET, COREG, PEPCID, NEURONTIN, HYDRALAZINE, AND ZOCOR WERE RESUMED. WE WILL CONTINUE WITH IV HYDRATION AND CURRENT PLAN OF CARE TODAY. OTHERWISE, WE WILL FOLLOW UP WITH AM LABS AND CONTINUE TO MONITOR. - Past Medical Family Social History Past Med/Fam/Surg Hx: No changes since H&P Allergies: Allergies oxycodone Allergy (Verified 04/03/20 12:08) - Review of Systems ROS: Changes notes (describe) - Vital Signs and I&O's Vital Signs: Temperature 96.6 F Pulse Rate [Left Brachial] 67 Pulse Rate 68 Respiratory Rate 12 Blood Pressure [Right Arm] 117/53 Blood Pressure [Left Arm] 130/62 Blood Pressure [Right Arm] 160/76 Blood Pressure 107/49 O2 Sat by Pulse Oximetry 95 Intake and Output: Intake & Output 04/12/20 04/13/20 04/14/20 04/15/20 11:59 11:59 11:59 11:59 Intake Total 960 / 960 1461 / 1461 1969 / 1969 1590 / 1590 Output Total 420 / 420 750 / 750 1000 / 1000 700 / 700 Balance 540 / 540 711 / 711 970 / 970 890 / 890 - Physical Exam Oriented: Normal Eyes: Normal Nose: Normal Throat: Normal Respiratory: Generalized, Diminished Cardiovascular: Normal, Edema (b/l LE edema, facial and upper ext edema improved) Auscultation: Bowel Sounds: Normal, Other (colostomy bag present) Palpation: Normal Tenderness: Normal Skin: Other (swelling of both upper ext - improving) Musculoskeletal: Back:Thoracic, Back:Lumbar, Back:Paraspinous Psychiatric: Normal Mood Description: Calm Affect: Normal Speech Pattern: Appropriate - Laboratory and Diagnostics Result Diagrams: 04/15/20 05:46 04/15/20 05:46 Labs: 04/03/20 12:32 Blood Blood Culture - Final 04/03/20 12:28 Blood Blood Culture - Final 04/04/20 09:11 Sputum - Endotracheal Wash Sputum Culture - Final Klebsiella Pneumoniae 04/04/20 09:11 Sputum - Endotracheal Wash - Final 04/03/20 21:22 Urine,Catheterized Urine Culture - Final Enterococcus Faecalis Laboratory WBC 6.7 X10^3/uL (3.6-10.0) 04/15/20 05:46 RBC 3.83 X10^6/uL (3.5-5.4) 04/15/20 05:46 Hgb 10.5 g/dL (12.0-16.0) L 04/15/20 05:46 Hct 33.0 % (36.0-47.0) L 04/15/20 05:46 MCV 86.1 fL (80.0-100.0) 04/15/20 05:46 MCH 27.4 pg (27.0-34.0) 04/15/20 05:46 MCHC 31.8 g/dL (33.0-35.0) L 04/15/20 05:46 RDW 15.7 % (11.6-16.5) 04/15/20 05:46 Plt Count 278 X10^3/uL (150.0-450.0) 04/15/20 05:46 Plt Count Comment Adequate (ADEQUATE) 04/15/20 05:46 MPV 8.2 fL (7.4-11.0) 04/15/20 05:46 Neut % (Auto) 71.9 % (42.0-75.0) 04/15/20 05:46 Lymph % (Auto) 15.3 % (21.0-51.0) L 04/15/20 05:46 [place] % (Auto) 5.7 % (0.0-13.0) 04/15/20 05:46 Eos % (Auto) 6.1 % (0.9-2.9) H 04/15/20 05:46 Baso % (Auto) 1.0 % (0.2-1.0) 04/15/20 05:46 Neut # (Auto) 4.8 x10^3/uL (2.2-4.8) 04/15/20 05:46 Lymph # (Auto) 1.0 X10^3/uL (1.3-2.9) L 04/15/20 05:46 [place] # (Auto) 0.4 x10^3/uL (0.3-0.8) 04/15/20 05:46 Eos # (Auto) 0.4 x10^3/uL (0.0-0.2) H 04/15/20 05:46 Baso # (Auto) 0.1 X10^3/uL (0.0-0.1) 04/15/20 05:46 Absolute Nucleated RBC 0.0 /100WBC 04/15/20 05:46 Total Counted 100 04/15/20 05:46 Neutrophils % (Manual) 71 % (39-76) 04/15/20 05:46 Band Neutrophils % 3 % (0-10) 04/04/20 05:55 Lymphocytes % (Manual) 15 % (13-43) 04/15/20 05:46 Monocytes % (Manual) 8 % (4-9) 04/15/20 05:46 Eosinophils % (Manual) 6 % (0-6) 04/15/20 05:46 Plt Morphology Comment Normal (NORMAL) 04/15/20 05:46 RBC Morphology Normal (NORMAL) 04/15/20 05:46 PT 13.5 SECONDS (11.8-14.3) 04/04/20 05:55 INR Target Range - 04/04/20 05:55 INR 1.06 (0.8-1.3) 04/04/20 05:55 APTT 37.0 SECONDS (22.9-36.5) H 04/04/20 05:55 PTT Comment - 04/04/20 05:55 Sample Site Lr 04/08/20 05:00 ABG pH 7.400 (7.35-7.45) 04/08/20 05:00 ABG pCO2 47.0 mmHg (35.0-45.0) H 04/08/20 05:00 ABG pO2 78.0 mmHg (80.0-100.0) L 04/08/20 05:00 ABG HCO3 29.1 mmol/L (22-26) H 04/08/20 05:00 ABG O2 Saturation 95.0 % (90-100) 04/08/20 05:00 ABG Base Excess 3.6 mmol/L (-2.0-2.0) H 04/08/20 05:00 Christos Test Pos 04/08/20 05:00 A-a Gradient 113.0 mmHg 04/08/20 05:00 FiO2 35.0 04/08/20 05:00 Blood Gas Comments Mayi well 04/08/20 05:00 Sodium 140 mmol/L (136-145) 04/15/20 05:46 Corrected Sodium TNP 04/15/20 05:46 Potassium 5.7 mmol/L (3.5-5.1) H 04/15/20 05:46 Chloride 108 mmol/L (98-107) H 04/15/20 05:46 Carbon Dioxide 21.5 mmol/L (21-32) 04/15/20 05:46 BUN 48 mg/dL (7-18) H 04/15/20 05:46 Creatinine 2.87 mg/dL (0.55-1.02) H 04/15/20 05:46 Est GFR (MDRD) Af Amer 21 (>60) L 04/15/20 05:46 Est GFR (MDRD) Non-Af 17 (>60) L 04/15/20 05:46 Glucose 96 mg/dL (65-99) 04/15/20 05:46 POC Glucose (mg/dL) 108 mg/dL (65-99) H 04/15/20 05:19 Lactic Acid 0.7 mmol/L (0.4-2.0) 04/03/20 12:32 Calcium 8.8 mg/dL (8.5-10.1) 04/15/20 05:46 Corrected Calcium 10.1 mg/dL (8.5-10.1) 04/15/20 05:46 Magnesium 2.2 mg/dL (1.7-2.9) 04/04/20 05:55 Total Bilirubin 0.20 mg/dL (0.2-1.0) 04/15/20 05:46 AST 19 Units/L (15-37) 04/15/20 05:46 ALT 6 Units/L (12-78) L 04/15/20 05:46 Alkaline Phosphatase 50 Units/L (46-116) 04/15/20 05:46 Creatine Kinase 84 Units/L (26-192) 04/04/20 05:55 CK-MB (CK-2) 4.6 ng/mL (0-4.0) H* 04/04/20 05:55 CK/CKMB % Calc 5.5 % (<4) 04/04/20 05:55 Troponin I 0.34 ng/mL (0-1.5) 04/04/20 05:55 B-Natriuretic Peptide 162 pg/mL (0-79) H 04/10/20 05:41 Total Protein 6.6 g/dL (6.4-8.2) 04/15/20 05:46 Albumin 2.4 g/dL (3.4-5.0) L 04/15/20 05:46 Globulin 4.2 g/dL (2.5-4.5) 04/15/20 05:46 Albumin/Globulin Ratio 0.6 Ratio (1.1-2.1) L 04/15/20 05:46 Specimen Type Catherized urine 04/03/20 21:22 Urine Color Yellow (YELLOW) 04/03/20 21:22 Urine Appearance Cloudy (CLEAR) 04/03/20 21:22 Urine pH 5.0 (5.0 - 8.0) 04/03/20 21:22 Ur Specific [place] 1.025 (1.000-1.030) 04/03/20 21: Urine Protein 4+ (NEGATIVE) 04/03/20 21: Urine Glucose (UA) Negative (NEGATIVE) 04/03/20 21: Urine Ketones Negative (NEGATIVE) 04/03/20 21: Urine Occult Blood 1+ (NEGATIVE) 04/03/20 21: Urine Nitrite Negative (NEGATIVE) 04/03/20 21: Urine Bilirubin Negative (NEGATIVE) 04/03/20 21: Urine Urobilinogen Normal (NORMAL) 04/03/20 21: Ur Leukocyte Esterase 2+ (NEGATIVE) 04/03/20 21: Urine RBC 0-2 /HPF (0-3) 04/03/20 21: Urine WBC 5-10 /HPF (0-5) A 04/03/20 21:22 Ur Squamous Epith Cells Few /HPF (NEGATIVE) 04/03/20 21: Urine Bacteria 2+ /HPF (NEGATIVE) 04/03/20 21: Coarse Granular Casts Few /HPF (NEGATIVE) 04/03/20 21: Urine Yeast Few /HPF (NEGATIVE) 04/03/20 21: Ur Culture Indicated? Yes/culture set up 04/03/20 21: Urine Creatinine 125.85 mg/dL (29-226) 04/11/20 14:01 Blood Type O POSITIVE 04/06/20 13:00 Antibody Screen Negative 04/06/20 13:00 Crossmatch See Detail 04/06/20 13:00
[2020-04-15] MEDS: ABILIFY PO SCH (15:52)
[2020-04-15] MEDS: SNACK - Diabetic Appropriate PO SCH (20:00)
[2020-04-15] MEDS: ZOCOR TAB 40 MG PO SCH (21:00)
[2020-04-16] MEDS: DUONEB 0.5 MG/3 MG (3 mL) NEB SCH ×5 (00:23→17:23)
[2020-04-16] MEDS: NS 1000 ML 1,000 ML IV SCH ×2 (05:00→20:00)
[2020-04-16 06:13] LABS: BASOPHILS # (AUTO) 0.1 X10^3/uL (0.0-0.1); EOSINOPHILS # (AUTO) 0.3 x10^3/uL (0.0-0.2); EOSINOPHILS % (AUTO) 4.8 % (0.9-2.9); HEMATOCRIT 28.3 % (36.0-47.0); HEMOGLOBIN 9.1 g/dL (12.0-16.0); LYMPHOCYTES # (AUTO) 0.9 X10^3/uL (1.3-2.9); LYMPHOCYTES % (AUTO) 12.4 % (21.0-51.0); MEAN CORPUSCULAR HEMOGLOBIN 27.5 pg (27.0-34.0); MEAN CORPUSCULAR VOLUME 85.9 fL (80.0-100.0); MEAN PLATELET VOLUME 8.2 fL (7.4-11.0); MONOCYTES # (AUTO) 0.5 x10^3/uL (0.3-0.8); MONOCYTES % (AUTO) 7.5 % (0.0-13.0); NEUTROPHILS # (AUTO) 5.3 x10^3/uL (2.2-4.8); NEUTROPHILS % (AUTO) 74.3 % (42.0-75.0); PLATELET COUNT 270 X10^3/uL (150.0-450.0); RED CELL DISTRIBUTION WIDTH 15.5 % (11.6-16.5); WHITE BLOOD COUNT 7.1 X10^3/uL (3.6-10.0)
[2020-04-16 06:36] LABS: ALBUMIN 2.3 g/dL (3.4-5.0); CALCIUM 8.8 mg/dL (8.5-10.1); CARBON DIOXIDE 20.4 mmol/L (21-32); COR CA(FOR HYPOALB) 10.2 mg/dL (8.5-10.1); CREATININE 2.61 mg/dL (0.55-1.02); TOTAL PROTEIN 6.1 g/dL (6.4-8.2)
[2020-04-16 08:45] LABS: ABG BASE EXCESS -3.9 mmol/L (-2.0-2.0); ABG HCO3 20.8 mmol/L (22-26)
[2020-04-16] MEDS: ABILIFY PO SCH (08:56)
[2020-04-16] MEDS: APRESOLINE TAB 25 MG PO SCH ×2 (08:57→20:25)
[2020-04-16] MEDS: COREG TAB 12.5 MG PO SCH ×2 (08:58→20:26)
[2020-04-16] MEDS: HEPARIN SODIUM INJ 5000 UNITS SC SCH ×2 (08:58→20:29)
[2020-04-16] MEDS: EUCERIN TOP SCH ×2 (08:58→21:00)
[2020-04-16] MEDS: NEURONTIN TAB 600 MG PO SCH (08:59)
[2020-04-16] MEDS: LEVEMIR SC SCH ×2 (08:59→23:41)
[2020-04-16] MEDS: SINEMET (PLAIN) 10/100 MG PO SCH ×2 (09:00→20:28)
[2020-04-16] MEDS: NYSTATIN POWDER TOP SCH ×2 (09:00→21:00)
[2020-04-16] MEDS: SYNTHROID 125 mcg TAB PO SCH (09:01)
[2020-04-16] MEDS: TEMOVATE CREAM EXT SCH ×2 (09:01→21:00)
[2020-04-16] MEDS: PEPCID TAB 20 MG PO SCH (09:05)
[2020-04-16] MEDS: XANAX PO SCH ×2 (09:05→20:27)
[2020-04-16] MEDS: NORCO 7.5/325 MG TAB PO SCH ×4 (09:06→22:00)
--- NOTE | 2020-04-16 10:32 | RAD ---
HISTORYHYPOXIASTUDYCHEST x-ray, 1 VIEWCOMPARISONX-ray from previous dayFINDINGSPort catheter terminates in the region of the right atrium of the heart. CHF is likely. Moderate left pleural effusion is similar to prior study and there is likely small to moderate right pleural effusion, unchanged. Probable areas of atelectasis and/or pneumonia are present bilaterally, similar to prior study. No pneumothorax is seen.IMPRESSIONPossible mild improvement in CHF, but pleural effusions and atelectasis or pneumonia are similar to prior study.Electronically signed by: Nick Johnson (Apr 16, 2020 10:30:44)
--- NOTE | 2020-04-16 13:55 | CT ---
HISTORYAMS history of asthma, COPD, diabetes and hypertension.STUDYBRAIN W/O CONCOMPARISONHead CT 04/03/2020TECHNIQUEMultiple CT axial images of the head were obtained without IV contrast. Coronal and sagittal images were reconstructed. Dose reduction techniques included Automated Exposure Control (AEC) and adjustment of mA and kV.FINDINGSAge-related findings include central and cortical atrophy with areas of low density in the periventricular white matter compatible with micro-ischemic changes. Otherwise deng and white matter have normal differentiation. There is no mass, shift, or hemorrhage. Cerebellar tonsils are at an appropriate level. No evidence for sinusitis. Motion artifact hinders evaluation of the mastoid air cells.IMPRESSION1. No acute findingElectronically signed by: Sarath Ospina (Apr 16, 2020 13:54:28)
--- NOTE | 2020-04-16 15:12 | PCM.PROG ---
Progress Note Progress Note for Day of Date of Exam: 04/16/20 Subjective Subjective: Patient seen at bedside, no acute overnight events. Patient has been having periods of restlessness over the past couple days. She is also noted to have altered mental status. She is oriented to place but not able to have a conversation. She keeps calling out for help and states she is in pain but not able to tell anything else. She had been accepted at LT but was not discharged due to acute on chronic renal failure. Patient's lasix was on hold and she was started on IVF 2 days ago. Her renal function is slowly improving. She has not been eating much. She has been taking her oral medications. She also did get a dose of Dilaudid in the past couple days. She has been abferile. She completed treated for UTI and pna with Zosyn for over 10 days. COVID test was negative. Patient is able to follow simple commands. She seems to be having delirium, could be related to prolonged hospitalization, worsening underlying dementia. Labs: Hgb 9.1 K: 5.6 Na:140 Cl:108 BUN/Cr: 48/2.61 Glucose 113 Plan: repeat UA, CXR, Lactic acid, blood Cx and ABG. DC Dilaudid, increase norco to TID prn. DC Zosyn. Start Kayexalate, repeat BMP in the evening. CT-head to rule out acute changes. Time spent 31-74 mins in clinical assessment, reviewing labs/imaging, decision making and documentation. Past Medical Family Social History Past Med/Fam/Surg Hx: No changes since H&P Allergies: Allergies oxycodone Allergy (Verified 04/03/20 12:08) Review of Systems ROS: Changes notes (describe) Vital Signs and I&O's Vital Signs: Temperature 99.7 F Pulse Rate [Left Brachial] 78 Pulse Rate 75 Respiratory Rate 28 Blood Pressure [Right Arm] 110/53 Blood Pressure [Left Arm] 177/80 Blood Pressure [Right Arm] 101/52 Blood Pressure 107/49 O2 Sat by Pulse Oximetry 95 Intake and Output: Intake & Output 04/13/20 04/14/20 04/15/20 04/16/20 23:59 23:59 23:59 23:59 Intake Total 1540 / 1540 990 / 990 2210 / 2210 700 / 700 Output Total 775 / 775 900 / 900 675 / 675 200 / 200 Balance 765 / 765 90 / 90 1535 / 1535 500 / 500 Physical Exam Oriented: Place and Not Oriented Eyes: Normal Nose: Normal Throat: Normal Respiratory: Generalized and Diminished Cardiovascular: Normal and Edema (LE edema present, similar to prior exam ) Auscultation: Bowel Sounds: Normal and Other (colostomy bag present ) Tenderness: Normal Skin: Other (swelling of both upper ext resolved ) Musculoskeletal: Back:Thoracic, Back:Lumbar and Back:Paraspinous Psychiatric: Agitation Mood Description: Anxious Affect: Anxious Speech Pattern: Clear and Inappropriate Laboratory and Diagnostics Result Diagrams: 04/16/20 05:15 04/16/20 05:15 Labs: 04/03/20 12:32 Blood Blood Culture - Final 04/03/20 12:28 Blood Blood Culture - Final 04/04/20 09:11 Sputum - Endotracheal Wash Sputum Culture - Final Klebsiella Pneumoniae 04/04/20 09:11 Sputum - Endotracheal Wash - Final 04/03/20 21:22 Urine,Catheterized Urine Culture - Final Enterococcus Faecalis Laboratory WBC 7.1 X10^3/uL (3.6-10.0) 04/16/20 05:15 RBC 3.30 X10^6/uL (3.5-5.4) L 04/16/20 05:15 Hgb 9.1 g/dL (12.0-16.0) L 04/16/20 05:15 Hct 28.3 % (36.0-47.0) L 04/16/20 05:15 MCV 85.9 fL (80.0-100.0) 04/16/20 05:15 MCH 27.5 pg (27.0-34.0) 04/16/20 05:15 MCHC 32.0 g/dL (33.0-35.0) L 04/16/20 05:15 RDW 15.5 % (11.6-16.5) 04/16/20 05:15 Plt Count 270 X10^3/uL (150.0-450.0) 04/16/20 05:15 Plt Count Comment Adequate (ADEQUATE) 04/15/20 05:46 MPV 8.2 fL (7.4-11.0) 04/16/20 05:15 Neut % (Auto) 74.3 % (42.0-75.0) 04/16/20 05:15 Lymph % (Auto) 12.4 % (21.0-51.0) L 04/16/20 05:15 [place] % (Auto) 7.5 % (0.0-13.0) 04/16/20 05:15 Eos % (Auto) 4.8 % (0.9-2.9) H 04/16/20 05:15 Baso % (Auto) 1.0 % (0.2-1.0) 04/16/20 05:15 Neut # (Auto) 5.3 x10^3/uL (2.2-4.8) H 04/16/20 05:15 Lymph # (Auto) 0.9 X10^3/uL (1.3-2.9) L 04/16/20 05:15 [place] # (Auto) 0.5 x10^3/uL (0.3-0.8) 04/16/20 05:15 Eos # (Auto) 0.3 x10^3/uL (0.0-0.2) H 04/16/20 05:15 Baso # (Auto) 0.1 X10^3/uL (0.0-0.1) 04/16/20 05:15 Absolute Nucleated RBC 0.1 /100WBC 04/16/20 05:15 Total Counted 100 04/15/20 05:46 Neutrophils % (Manual) 71 % (39-76) 04/15/20 05:46 Band Neutrophils % 3 % (0-10) 04/04/20 05:55 Lymphocytes % (Manual) 15 % (13-43) 04/15/20 05:46 Monocytes % (Manual) 8 % (4-9) 04/15/20 05:46 Eosinophils % (Manual) 6 % (0-6) 04/15/20 05:46 Plt Morphology Comment Normal (NORMAL) 04/15/20 05:46 RBC Morphology Normal (NORMAL) 04/15/20 05:46 PT 13.5 SECONDS (11.8-14.3) 04/04/20 05:55 INR Target Range - 04/04/20 05:55 INR 1.06 (0.8-1.3) 04/04/20 05:55 APTT 37.0 SECONDS (22.9-36.5) H 04/04/20 05:55 PTT Comment - 04/04/20 05:55 Sample Site Lbra 04/16/20 08:35 ABG pH 7.370 (7.35-7.45) 04/16/20 08:35 ABG pCO2 36.0 mmHg (35.0-45.0) 04/16/20 08:35 ABG pO2 57.0 mmHg (80.0-100.0) L 04/16/20 08:35 ABG HCO3 20.8 mmol/L (22-26) L 04/16/20 08:35 ABG O2 Saturation 88.0 % (90-100) L 04/16/20 08:35 ABG Base Excess -3.9 mmol/L (-2.0-2.0) L 04/16/20 08:35 Christos Test N/a 04/16/20 08:35 A-a Gradient 126.0 mmHg 04/16/20 08:35 FiO2 32.0 04/16/20 08:35 Blood Gas Comments Pt raymond well elj 04/16/20 08:35 Sodium 140 mmol/L (136-145) 04/16/20 05:15 Corrected Sodium 140 mmol/L (136-145) 04/16/20 05:15 Potassium 5.6 mmol/L (3.5-5.1) H 04/16/20 05:15 Chloride 108 mmol/L (98-107) H 04/16/20 05:15 Carbon Dioxide 20.4 mmol/L (21-32) L 04/16/20 05:15 BUN 48 mg/dL (7-18) H 04/16/20 05:15 Creatinine 2.61 mg/dL (0.55-1.02) H 04/16/20 05:15 Est GFR (MDRD) Af Amer 24 (>60) L 04/16/20 05:15 Est GFR (MDRD) Non-Af 19 (>60) L 04/16/20 05:15 Glucose 113 mg/dL (65-99) H 04/16/20 05:15 POC Glucose (mg/dL) 87 mg/dL (65-99) 04/16/20 12:19 Lactic Acid 0.6 mmol/L (0.4-2.0) 04/16/20 10:05 Calcium 8.8 mg/dL (8.5-10.1) 04/16/20 05:15 Corrected Calcium 10.2 mg/dL (8.5-10.1) H 04/16/20 05:15 Magnesium 2.2 mg/dL (1.7-2.9) 04/04/20 05:55 Total Bilirubin 0.20 mg/dL (0.2-1.0) 04/16/20 05:15 AST 21 Units/L (15-37) 04/16/20 05:15 ALT 10 Units/L (12-78) L 04/16/20 05:15 Alkaline Phosphatase 44 Units/L (46-116) L 04/16/20 05:15 Ammonia 15 umol/L (11-32) 04/16/20 09:04 Creatine Kinase 84 Units/L (26-192) 04/04/20 05:55 CK-MB (CK-2) 4.6 ng/mL (0-4.0) H* 04/04/20 05:55 CK/CKMB % Calc 5.5 % (<4) 04/04/20 05:55 Troponin I 0.34 ng/mL (0-1.5) 04/04/20 05:55 B-Natriuretic Peptide 162 pg/mL (0-79) H 04/10/20 05:41 Total Protein 6.1 g/dL (6.4-8.2) L 04/16/20 05:15 Albumin 2.3 g/dL (3.4-5.0) L 04/16/20 05:15 Globulin 3.8 g/dL (2.5-4.5) 04/16/20 05:15 Albumin/Globulin Ratio 0.6 Ratio (1.1-2.1) L 04/16/20 05:15 Specimen Type Catherized urine 04/03/20 21: Urine Color Yellow (YELLOW) 04/03/20 21: Urine Appearance Cloudy (CLEAR) 04/03/20 21:22 Urine pH 5.0 (5.0 - 8.0) 04/03/20 21:22 Ur Specific [place] 1.025 (1.000-1.030) 04/03/20 21:22 Urine Protein 4+ (NEGATIVE) 04/03/20 21:22 Urine Glucose (UA) Negative (NEGATIVE) 04/03/20 21: Urine Ketones Negative (NEGATIVE) 04/03/20 21: Urine Occult Blood 1+ (NEGATIVE) 04/03/20 21:22 Urine Nitrite Negative (NEGATIVE) 04/03/20 21:22 Urine Bilirubin Negative (NEGATIVE) 04/03/20 21:22 Urine Urobilinogen Normal (NORMAL) 04/03/20 21:22 Ur Leukocyte Esterase 2+ (NEGATIVE) 04/03/20 21:22 Urine RBC 0-2 /HPF (0-3) 04/03/20 21:22 Urine WBC 5-10 /HPF (0-5) A 04/03/20 21: Ur Squamous Epith Cells Few /HPF (NEGATIVE) 04/03/20 21: Urine Bacteria 2+ /HPF (NEGATIVE) 04/03/20 21: Coarse Granular Casts Few /HPF (NEGATIVE) 04/03/20 21: Urine Yeast Few /HPF (NEGATIVE) 04/03/20 21:22 Ur Culture Indicated? Yes/culture set up 04/03/20 21: Urine Creatinine 125.85 mg/dL (29-226) 04/11/20 14:01 Blood Type O POSITIVE 04/06/20 13:00 Antibody Screen Negative 04/06/20 13:00 Crossmatch See Detail 04/06/20 13:00 Plan (1) Delirium: Status: Acute (2) Generalized weakness: Status: Acute (3) Acute on chronic renal failure: Status: Acute Qualifiers: Acute renal failure type: unspecified Chronic kidney disease stage: unspecified stage Qualified Code(s): N17.9 - Acute kidney failure, unspecified; N18.9 - Chronic kidney disease, unspecified (4) Acute on chronic respiratory failure with hypoxia and hypercapnia: Status: Acute (5) AMS (altered mental status): Status: Acute Qualifiers: Altered mental status type: transient alteration of awareness Qualified Code(s): R40.4 - Transient alteration of awareness (6) Hyperkalemia: Status: Acute (7) Obesity hypoventilation syndrome: Status: Acute (8) Uncontrolled type 2 diabetes mellitus: Status: Acute Qualifiers: Glycemic state: with hyperglycemia Qualified Code(s): E11.65 - Type 2 diabetes mellitus with hyperglycemia (9) Klebsiella pneumonia: Status: Acute Qualifiers: Laterality: bilateral Lung location: unspecified part of lung Qualified Code(s): J15.0 - Pneumonia due to Klebsiella pneumoniae (10) Enterococcus UTI: Status: Acute (11) COPD (chronic obstructive pulmonary disease): Status: Acute Qualifiers: COPD type: unspecified COPD Qualified Code(s): J44.9 - Chronic obstructive pulmonary disease, unspecified (12) Hypertension associated with stage 2 chronic kidney disease due to type 2 diabetes mellitus: Status: Acute
[2020-04-16] MEDS: KAYEXALATE SUSP PO SCH ×3 (15:57→20:29)
[2020-04-16 16:07] LABS: BILIRUBIN,URINE NEGATIVE (NEGATIVE); BLOOD/HEMOGLOBIN,URINE 2+ (NEGATIVE); GLUCOSE, URINE NEGATIVE (NEGATIVE); KETONES,URINE 1+ (NEGATIVE); LEUKOCYTE ESTERASE ,URINE 3+ (NEGATIVE); NITRITES,URINE NEGATIVE (NEGATIVE); PROTEIN,URINE 4+ (NEGATIVE); UROBILINOGEN,URINE NORMAL (NORMAL)
[2020-04-16 16:08] LABS: APPEARANCE,URINE CLOUDY (CLEAR); BACTERIA,URINE TRACE /HPF (NEGATIVE); COLOR,URINE YELLOW (YELLOW); SQUAMOUS EPITHELIAL CELL,UR RARE /HPF (NEGATIVE)
[2020-04-16 16:09] LABS: AMORPHOUS SEDIMENT,UR 1+ /HPF (NEGATIVE); RENAL EPITHELIAL CELLS,URINE RARE /HPF (NEGATIVE); YEAST,URINE MANY /HPF (NEGATIVE)
[2020-04-16 17:29] LABS: BLOOD UREA NITROGEN 49 mg/dL (7-18); CALCIUM 8.5 mg/dL (8.5-10.1); CARBON DIOXIDE 22.9 mmol/L (21-32); CHLORIDE 110 mmol/L (98-107); CREATININE 2.66 mg/dL (0.55-1.02); SODIUM 142 mmol/L (136-145); eGFR NON BLACK RACES 19 (>60)
[2020-04-16] MEDS: AMPICILLIN VIAL 1 GRAM 1 G in NS 100 ML IV + SPIKE MINIBAG* 100 ML IV SCH (18:24)
[2020-04-16] MEDS: SNACK - Diabetic Appropriate PO SCH (20:26)
[2020-04-16] MEDS: ZOCOR TAB 40 MG PO SCH (20:28)
[2020-04-17] MEDS: DUONEB 0.5 MG/3 MG (3 mL) NEB SCH ×4 (00:30→18:15)
[2020-04-17] MEDS: AMPICILLIN VIAL 1 GRAM 1 G in NS 100 ML IV + SPIKE MINIBAG* 100 ML IV SCH ×3 (01:36→16:29)
[2020-04-17] MEDS: NORCO 7.5/325 MG TAB PO SCH (05:12)
[2020-04-17 06:38] LABS: BLOOD UREA NITROGEN 48 mg/dL (7-18); CALCIUM 9.3 mg/dL (8.5-10.1); CARBON DIOXIDE 19.5 mmol/L (21-32); CHLORIDE 109 mmol/L (98-107); CREATININE 2.47 mg/dL (0.55-1.02); SODIUM 142 mmol/L (136-145); eGFR NON BLACK RACES 21 (>60)
[2020-04-17 06:42] LABS: BASOPHILS # (AUTO) 0.1 X10^3/uL (0.0-0.1); BASOPHILS % (AUTO) 1.2 % (0.2-1.0); EOSINOPHILS # (AUTO) 0.3 x10^3/uL (0.0-0.2); EOSINOPHILS % (AUTO) 4.2 % (0.9-2.9); HEMOGLOBIN 9.8 g/dL (12.0-16.0); LYMPHOCYTES # (AUTO) 1.2 X10^3/uL (1.3-2.9); LYMPHOCYTES % (AUTO) 15.8 % (21.0-51.0); MEAN CORPUSCULAR HEMOGLOBIN 27.3 pg (27.0-34.0); MEAN CORPUSCULAR HGB CONC 31.6 g/dL (33.0-35.0); MEAN CORPUSCULAR VOLUME 86.5 fL (80.0-100.0); MEAN PLATELET VOLUME 8.3 fL (7.4-11.0); MONOCYTES # (AUTO) 0.5 x10^3/uL (0.3-0.8); MONOCYTES % (AUTO) 6.7 % (0.0-13.0); NEUTROPHILS # (AUTO) 5.6 x10^3/uL (2.2-4.8); NEUTROPHILS % (AUTO) 72.1 % (42.0-75.0); PLATELET COUNT 316 X10^3/uL (150.0-450.0); RED BLOOD COUNT 3.58 X10^6/uL (3.5-5.4); RED CELL DISTRIBUTION WIDTH 15.9 % (11.6-16.5); WHITE BLOOD COUNT 7.8 X10^3/uL (3.6-10.0)
[2020-04-17 06:59] LABS: PLATELET MORPHOLOGY COMMENT NORMAL (NORMAL)
[2020-04-17] MEDS ORDERED: KAYEXALATE SUSP PO SCH (09:00)
[2020-04-17] MEDS ORDERED: NORCO 7.5/325 MG TAB PO SCH (09:00)
[2020-04-17] MEDS: COREG TAB 12.5 MG PO SCH ×2 (09:19→21:00)
[2020-04-17] MEDS: APRESOLINE TAB 25 MG PO SCH ×2 (09:19→21:00)
[2020-04-17] MEDS: EUCERIN TOP SCH ×2 (09:20→21:00)
[2020-04-17] MEDS: KAYEXALATE SUSP PO SCH (09:21)
[2020-04-17] MEDS: HEPARIN SODIUM INJ 5000 UNITS SC SCH ×2 (09:22→21:00)
[2020-04-17] MEDS: NYSTATIN POWDER TOP SCH ×2 (09:23→21:00)
[2020-04-17] MEDS: TEMOVATE CREAM EXT SCH ×2 (09:23→21:00)
[2020-04-17] MEDS: SINEMET (PLAIN) 10/100 MG PO SCH ×2 (09:24→21:00)
[2020-04-17] MEDS: SYNTHROID 125 mcg TAB PO SCH (09:25)
[2020-04-17] MEDS: NEURONTIN TAB 600 MG PO SCH (09:26)
[2020-04-17] MEDS: XANAX PO SCH ×2 (09:27→21:00)
[2020-04-17] MEDS: ABILIFY PO SCH (09:30)
[2020-04-17] MEDS: NS 1000 ML 1,000 ML IV SCH (11:51)
[2020-04-17] MEDS: NORCO 7.5/325 MG TAB PO PRN (12:43)
--- NOTE | 2020-04-17 15:08 | PCM.PROG ---
Progress Note Progress Note for Day of Date of Exam: 04/17/20 Subjective Subjective: Patient seen at bedside, no overnight events. Patient is more like herself today, awake, alert and able to answer questions, follows commands. She has been accepted for rehab in [place]. Patient had a CT-head done which did not show any acute process. CXR was similar to prior exam. UA was suggestive of recurrent infection. Patient's recent Cx had grown Enterocccus so she was started on IV ampicillin. Patient seems to be doing a lot better today than yesterday. Patient's son Herberth Palomares was contacted yesterday and updated on patient's current treatment. Labs: Hgb 9.8 K: 5.4 Na:140 BUN/Cr: 48/2.47 Glucose 99 Lactic acid: 0.9 ABG: pO2: 57 pCo2: 36 on 3L sats 88% Plan: Continue ampicillin, continue gentle hydration. Continue to monitor neuro status. Monitor AM labs. Will check with rehab facility if they can do IV abx. Keep price in place for now as patient is very weak to be able to use the commode. Continue PT/OT as tolerated. Patient is currently on 3-4L O2, wean as tolerated. Past Medical Family Social History Past Med/Fam/Surg Hx: No changes since H&P Allergies: Allergies oxycodone Allergy (Verified 04/03/20 12:08) Review of Systems ROS: Changes notes (describe) Vital Signs and I&O's Vital Signs: Temperature 97.6 F Pulse Rate [Right Brachial] 84 Pulse Rate [Left Brachial] 76 Pulse Rate 88 Respiratory Rate 20 Blood Pressure [Right Arm] 171/76 Blood Pressure [Left Arm] 174/75 Blood Pressure [Right Arm] 101/52 Blood Pressure 107/49 O2 Sat by Pulse Oximetry 95 Intake and Output: Intake & Output 04/14/20 04/15/20 04/16/20 04/17/20 23:59 23:59 23:59 23:59 Intake Total 990 / 990 2210 / 2210 800 / 800 1200 / 1200 Output Total 900 / 900 675 / 675 675 / 675 300 / 300 Balance 90 / 90 1535 / 1535 125 / 125 900 / 900 Physical Exam Oriented: Normal Eyes: Normal Nose: Normal Throat: Normal Respiratory: Generalized and Diminished Cardiovascular: Normal and Edema (LE edema present, similar to prior exam ) Auscultation: Bowel Sounds: Normal and Other (colostomy bag present ) Tenderness: Normal Skin: Other (swelling of both upper ext resolved ) Musculoskeletal: Back:Thoracic, Back:Lumbar and Back:Paraspinous Psychiatric: Normal Mood Description: Calm Affect: Normal Speech Pattern: Clear and Appropriate Laboratory and Diagnostics Result Diagrams: 04/17/20 05:25 04/17/20 05:25 Labs: 04/16/20 13:45 Urine,Catheterized Urine Culture - Preliminary 04/03/20 12:32 Blood Blood Culture - Final 04/03/20 12:28 Blood Blood Culture - Final 04/04/20 09:11 Sputum - Endotracheal Wash Sputum Culture - Final Klebsiella Pneumoniae 04/04/20 09:11 Sputum - Endotracheal Wash - Final 04/03/20 21:22 Urine,Catheterized Urine Culture - Final Enterococcus Faecalis Laboratory WBC 7.8 X10^3/uL (3.6-10.0) 04/17/20 05:25 RBC 3.58 X10^6/uL (3.5-5.4) 04/17/20 05:25 Hgb 9.8 g/dL (12.0-16.0) L 04/17/20 05:25 Hct 31.0 % (36.0-47.0) L 04/17/20 05:25 MCV 86.5 fL (80.0-100.0) 04/17/20 05:25 MCH 27.3 pg (27.0-34.0) 04/17/20 05:25 MCHC 31.6 g/dL (33.0-35.0) L 04/17/20 05:25 RDW 15.9 % (11.6-16.5) 04/17/20 05:25 Plt Count 316 X10^3/uL (150.0-450.0) 04/17/20 05:25 Plt Count Comment Adequate (ADEQUATE) 04/17/20 05:25 MPV 8.3 fL (7.4-11.0) 04/17/20 05:25 Neut % (Auto) 72.1 % (42.0-75.0) 04/17/20 05:25 Lymph % (Auto) 15.8 % (21.0-51.0) L 04/17/20 05:25 [place] % (Auto) 6.7 % (0.0-13.0) 04/17/20 05:25 Eos % (Auto) 4.2 % (0.9-2.9) H 04/17/20 05:25 Baso % (Auto) 1.2 % (0.2-1.0) H 04/17/20 05:25 Neut # (Auto) 5.6 x10^3/uL (2.2-4.8) H 04/17/20 05:25 Lymph # (Auto) 1.2 X10^3/uL (1.3-2.9) L 04/17/20 05:25 [place] # (Auto) 0.5 x10^3/uL (0.3-0.8) 04/17/20 05:25 Eos # (Auto) 0.3 x10^3/uL (0.0-0.2) H 04/17/20 05:25 Baso # (Auto) 0.1 X10^3/uL (0.0-0.1) 04/17/20 05:25 Absolute Nucleated RBC 0.0 /100WBC 04/17/20 05:25 Total Counted 100 04/17/20 05:25 Neutrophils % (Manual) 76 % (39-76) 04/17/20 05:25 Band Neutrophils % 3 % (0-10) 04/04/20 05:55 Lymphocytes % (Manual) 18 % (13-43) 04/17/20 05:25 Monocytes % (Manual) 4 % (4-9) 04/17/20 05:25 Eosinophils % (Manual) 2 % (0-6) 04/17/20 05:25 Plt Morphology Comment Normal (NORMAL) 04/17/20 05:25 RBC Morphology Normal (NORMAL) 04/17/20 05:25 PT 13.5 SECONDS (11.8-14.3) 04/04/20 05:55 INR Target Range - 04/04/20 05:55 INR 1.06 (0.8-1.3) 04/04/20 05:55 APTT 37.0 SECONDS (22.9-36.5) H 04/04/20 05:55 PTT Comment - 04/04/20 05:55 Sample Site Lbra 04/16/20 08:35 ABG pH 7.370 (7.35-7.45) 04/16/20 08:35 ABG pCO2 36.0 mmHg (35.0-45.0) 04/16/20 08:35 ABG pO2 57.0 mmHg (80.0-100.0) L 04/16/20 08:35 ABG HCO3 20.8 mmol/L (22-26) L 04/16/20 08:35 ABG O2 Saturation 88.0 % (90-100) L 04/16/20 08:35 ABG Base Excess -3.9 mmol/L (-2.0-2.0) L 04/16/20 08:35 Christos Test N/a 04/16/20 08:35 A-a Gradient 126.0 mmHg 04/16/20 08:35 FiO2 32.0 04/16/20 08:35 Blood Gas Comments Pt raymond well elj 04/16/20 08:35 Sodium 142 mmol/L (136-145) 04/17/20 05:25 Corrected Sodium TNP 04/17/20 05:25 Potassium 5.4 mmol/L (3.5-5.1) H 04/17/20 05:25 Chloride 109 mmol/L (98-107) H 04/17/20 05:25 Carbon Dioxide 19.5 mmol/L (21-32) L 04/17/20 05:25 BUN 48 mg/dL (7-18) H 04/17/20 05:25 Creatinine 2.47 mg/dL (0.55-1.02) H 04/17/20 05:25 Est GFR (MDRD) Af Amer 25 (>60) L 04/17/20 05:25 Est GFR (MDRD) Non-Af 21 (>60) L 04/17/20 05:25 Glucose 99 mg/dL (65-99) 04/17/20 05:25 POC Glucose (mg/dL) 101 mg/dL (65-99) H 04/17/20 05:38 Lactic Acid 0.6 mmol/L (0.4-2.0) 04/16/20 10:05 Calcium 9.3 mg/dL (8.5-10.1) 04/17/20 05:25 Corrected Calcium 10.2 mg/dL (8.5-10.1) H 04/16/20 05:15 Magnesium 2.2 mg/dL (1.7-2.9) 04/04/20 05:55 Total Bilirubin 0.20 mg/dL (0.2-1.0) 04/16/20 05:15 AST 21 Units/L (15-37) 04/16/20 05:15 ALT 10 Units/L (12-78) L 04/16/20 05:15 Alkaline Phosphatase 44 Units/L (46-116) L 04/16/20 05:15 Ammonia 15 umol/L (11-32) 04/16/20 09:04 Creatine Kinase 84 Units/L (26-192) 04/04/20 05:55 CK-MB (CK-2) 4.6 ng/mL (0-4.0) H* 04/04/20 05:55 CK/CKMB % Calc 5.5 % (<4) 04/04/20 05:55 Troponin I 0.34 ng/mL (0-1.5) 04/04/20 05:55 B-Natriuretic Peptide 162 pg/mL (0-79) H 04/10/20 05:41 Total Protein 6.1 g/dL (6.4-8.2) L 04/16/20 05:15 Albumin 2.3 g/dL (3.4-5.0) L 04/16/20 05:15 Globulin 3.8 g/dL (2.5-4.5) 04/16/20 05:15 Albumin/Globulin Ratio 0.6 Ratio (1.1-2.1) L 04/16/20 05:15 Specimen Type Catherized urine 04/16/20 13:45 Urine Color Yellow (YELLOW) 04/16/20 13:45 Urine Appearance Cloudy (CLEAR) 04/16/20 13:45 Urine pH 5.0 (5.0 - 8.0) 04/16/20 13:45 Ur Specific [place] 1.020 (1.000-1.030) 04/16/20 13:45 Urine Protein 4+ (NEGATIVE) 04/16/20 13:45 Urine Glucose (UA) Negative (NEGATIVE) 04/16/20 13:45 Urine Ketones 1+ (NEGATIVE) 04/16/20 13:45 Urine Occult Blood 2+ (NEGATIVE) 04/16/20 13:45 Urine Nitrite Negative (NEGATIVE) 04/16/20 13:45 Urine Bilirubin Negative (NEGATIVE) 04/16/20 13:45 Urine Urobilinogen Normal (NORMAL) 04/16/20 13:45 Ur Leukocyte Esterase 3+ (NEGATIVE) 04/16/20 13:45 Urine RBC 3-5 /HPF (0-3) A 04/16/20 13:45 Urine WBC 30-50 /HPF (0-5) A 04/16/20 13:45 Ur Squamous Epith Cells Rare /HPF (NEGATIVE) 04/16/20 13:45 Ur Renal Epithelial Cell Rare /HPF (NEGATIVE) 04/16/20 13:45 Amorphous Sediment 1+ /HPF (NEGATIVE) 04/16/20 13:45 Urine Bacteria Trace /HPF (NEGATIVE) 04/16/20 13:45 Coarse Granular Casts Few /HPF (NEGATIVE) 04/03/20 21:22 Urine Yeast Many /HPF (NEGATIVE) 04/16/20 13:45 Ur Culture Indicated? Yes/culture set up 04/16/20 13:45 Urine Creatinine 125.85 mg/dL (29-226) 04/11/20 14:01 Miscellaneous Test Resp panel 04/10/20 17:25 Blood Type O POSITIVE 04/06/20 13:00 Antibody Screen Negative 04/06/20 13:00 Crossmatch See Detail 04/06/20 13:00 Plan (1) Delirium: Status: Acute (2) Generalized weakness: Status: Acute (3) Acute on chronic renal failure: Status: Acute Qualifiers: Acute renal failure type: unspecified Chronic kidney disease stage: unspecified stage Qualified Code(s): N17.9 - Acute kidney failure, unspecified; N18.9 - Chronic kidney disease, unspecified (4) Acute on chronic respiratory failure with hypoxia and hypercapnia: Status: Acute (5) AMS (altered mental status): Status: Acute Qualifiers: Altered mental status type: transient alteration of awareness Qualified Code(s): R40.4 - Transient alteration of awareness (6) Hyperkalemia: Status: Acute (7) Obesity hypoventilation syndrome: Status: Acute (8) Uncontrolled type 2 diabetes mellitus: Status: Acute Qualifiers: Glycemic state: with hyperglycemia Qualified Code(s): E11.65 - Type 2 diabetes mellitus with hyperglycemia (9) Klebsiella pneumonia: Status: Acute Qualifiers: Laterality: bilateral Lung location: unspecified part of lung Qualified Code(s): J15.0 - Pneumonia due to Klebsiella pneumoniae (10) Enterococcus UTI: Status: Acute (11) COPD (chronic obstructive pulmonary disease): Status: Acute Qualifiers: COPD type: unspecified COPD Qualified Code(s): J44.9 - Chronic o bstructive pulmonary disease, unspecified (12) Hypertension associated with stage 2 chronic kidney disease due to type 2 diabetes mellitus: Status: Acute
[2020-04-17] MEDS: SNACK - Diabetic Appropriate PO SCH (20:00)
[2020-04-17] MEDS: ZOCOR TAB 40 MG PO SCH (21:00)
[2020-04-18] MEDS: DUONEB 0.5 MG/3 MG (3 mL) NEB SCH ×4 (00:31→18:51)
[2020-04-18] MEDS: AMPICILLIN VIAL 1 GRAM 1 G in NS 100 ML IV + SPIKE MINIBAG* 100 ML IV SCH ×3 (01:30→18:52)
[2020-04-18] MEDS: NS 1000 ML 1,000 ML IV SCH (04:37)
--- NOTE | 2020-04-18 05:50 | RAD ---
HISTORYSOBSTUDYCHEST, 1 [id number] trachea is midline. The cardiac silhouette is enlarged similar to prior exam. Central pulmonary vascular congestion again seen.. Bilateral pleural effusion and basilar atelectasis/consolidation similar to prior exam. Left chest wall MediPort unchanged.. The bony thorax is unremarkable.IMPRESSIONNo appreciable interval change.Electronically signed by: Adele Wilkerson (Apr 18, 2020 05:48:50)
[2020-04-18 06:19] LABS: BASOPHILS # (AUTO) 0.1 X10^3/uL (0.0-0.1); BASOPHILS % (AUTO) 1.2 % (0.2-1.0); EOSINOPHILS # (AUTO) 0.3 x10^3/uL (0.0-0.2); EOSINOPHILS % (AUTO) 4.3 % (0.9-2.9); HEMATOCRIT 28.2 % (36.0-47.0); LYMPHOCYTES # (AUTO) 0.9 X10^3/uL (1.3-2.9); LYMPHOCYTES % (AUTO) 11.4 % (21.0-51.0); MEAN CORPUSCULAR HEMOGLOBIN 27.6 pg (27.0-34.0); MEAN CORPUSCULAR VOLUME 86.2 fL (80.0-100.0); MEAN PLATELET VOLUME 7.6 fL (7.4-11.0); MONOCYTES # (AUTO) 0.6 x10^3/uL (0.3-0.8); MONOCYTES % (AUTO) 8.4 % (0.0-13.0); NEUTROPHILS # (AUTO) 5.7 x10^3/uL (2.2-4.8); NEUTROPHILS % (AUTO) 74.7 % (42.0-75.0); PLATELET COUNT 274 X10^3/uL (150.0-450.0); RED BLOOD COUNT 3.27 X10^6/uL (3.5-5.4); WHITE BLOOD COUNT 7.7 X10^3/uL (3.6-10.0)
[2020-04-18 06:39] LABS: CARBON DIOXIDE 21.4 mmol/L (21-32); CREATININE 2.04 mg/dL (0.55-1.02)
[2020-04-18 06:49] LABS: BAND NEUTROPHILS % 1 % (0-10); PLATELET MORPHOLOGY COMMENT NORMAL (NORMAL)
[2020-04-18] MEDS ORDERED: D50W ABBOJECT SYR IV ONE (08:05)
[2020-04-18] MEDS ORDERED: HumuLIN R IV ONE (08:06)
[2020-04-18] MEDS: ABILIFY PO SCH (09:21)
[2020-04-18] MEDS: HEPARIN SODIUM INJ 5000 UNITS SC SCH ×2 (09:24→21:33)
[2020-04-18] MEDS: COREG TAB 12.5 MG PO SCH ×2 (09:24→21:32)
[2020-04-18] MEDS: NYSTATIN POWDER TOP SCH (09:25)
[2020-04-18] MEDS: SINEMET (PLAIN) 10/100 MG PO SCH ×2 (09:25→21:34)
[2020-04-18] MEDS: APRESOLINE TAB 25 MG PO SCH ×2 (09:25→21:32)
[2020-04-18] MEDS: EUCERIN TOP SCH (09:26)
[2020-04-18] MEDS: TEMOVATE CREAM EXT SCH (09:26)
[2020-04-18] MEDS: XANAX PO SCH ×2 (09:26→21:34)
[2020-04-18] MEDS: NEURONTIN TAB 600 MG PO SCH (09:27)
[2020-04-18] MEDS: PEPCID TAB 20 MG PO SCH (09:32)
[2020-04-18] MEDS: SYNTHROID 125 mcg TAB PO SCH (09:33)
[2020-04-18 12:32] LABS: CALCIUM 8.7 mg/dL (8.5-10.1); CARBON DIOXIDE 23.9 mmol/L (21-32); CREATININE 2.23 mg/dL (0.55-1.02)
[2020-04-18] MEDS ORDERED: KAYEXALATE SUSP PO NR (14:00)
[2020-04-18] MEDS ORDERED: LASIX IVP ONE (18:07)
[2020-04-18 18:27] LABS: ABG ALLEN TEST POS; ABG BASE EXCESS -5.3 mmol/L (-2.0-2.0)
[2020-04-18] MEDS ORDERED: NS 500 ML IV 500 ML IV ONE (18:42)
[2020-04-18] MEDS: SNACK - Diabetic Appropriate PO SCH (21:31)
[2020-04-18] MEDS: ZOCOR TAB 40 MG PO SCH (21:35)
[2020-04-19] MEDS: DUONEB 0.5 MG/3 MG (3 mL) NEB SCH ×5 (00:52→23:09)
[2020-04-19] MEDS: AMPICILLIN VIAL 1 GRAM 1 G in NS 100 ML IV + SPIKE MINIBAG* 100 ML IV SCH ×3 (01:52→16:40)
[2020-04-19] MEDS: TEMOVATE CREAM EXT SCH ×3 (04:35→20:27)
[2020-04-19] MEDS: EUCERIN TOP SCH ×3 (05:49→20:26)
[2020-04-19 06:07] LABS: BLOOD UREA NITROGEN 46 mg/dL (7-18); CALCIUM 9.3 mg/dL (8.5-10.1); CARBON DIOXIDE 21.6 mmol/L (21-32); CHLORIDE 113 mmol/L (98-107); CREATININE 2.19 mg/dL (0.55-1.02); SODIUM 144 mmol/L (136-145); eGFR NON BLACK RACES 24 (>60)
[2020-04-19 06:08] LABS: BASOPHILS # (AUTO) 0.1 X10^3/uL (0.0-0.1); BASOPHILS % (AUTO) 0.9 % (0.2-1.0); EOSINOPHILS # (AUTO) 0.3 x10^3/uL (0.0-0.2); HEMATOCRIT 27.8 % (36.0-47.0); HEMOGLOBIN 8.9 g/dL (12.0-16.0); LYMPHOCYTES # (AUTO) 1.2 X10^3/uL (1.3-2.9); LYMPHOCYTES % (AUTO) 19.9 % (21.0-51.0); MEAN CORPUSCULAR HEMOGLOBIN 27.9 pg (27.0-34.0); MEAN CORPUSCULAR HGB CONC 31.9 g/dL (33.0-35.0); MEAN CORPUSCULAR VOLUME 87.4 fL (80.0-100.0); MEAN PLATELET VOLUME 8.2 fL (7.4-11.0); MONOCYTES # (AUTO) 0.4 x10^3/uL (0.3-0.8); MONOCYTES % (AUTO) 7.4 % (0.0-13.0); NEUTROPHILS # (AUTO) 3.9 x10^3/uL (2.2-4.8); NEUTROPHILS % (AUTO) 66.8 % (42.0-75.0); PLATELET COUNT 262 X10^3/uL (150.0-450.0); RED BLOOD COUNT 3.18 X10^6/uL (3.5-5.4); RED CELL DISTRIBUTION WIDTH 16.5 % (11.6-16.5); WHITE BLOOD COUNT 5.8 X10^3/uL (3.6-10.0)
[2020-04-19] MEDS: NYSTATIN POWDER TOP SCH ×3 (06:08→20:27)
[2020-04-19 07:00] LABS: BAND NEUTROPHILS % 2 % (0-10); METAMYELOCYTES % 2; MYELOCYTES % 1
[2020-04-19 07:01] LABS: PLATELET MORPHOLOGY COMMENT NORMAL (NORMAL)
[2020-04-19] MEDS ORDERED: LASIX PO SCH (09:00)
[2020-04-19] MEDS: HEPARIN SODIUM INJ 5000 UNITS SC SCH ×2 (09:30→20:25)
[2020-04-19] MEDS: SYNTHROID 125 mcg TAB PO SCH (09:30)
[2020-04-19] MEDS: APRESOLINE TAB 25 MG PO SCH ×2 (09:30→20:20)
[2020-04-19] MEDS: NORCO 7.5/325 MG TAB PO PRN (09:30)
[2020-04-19] MEDS: COREG TAB 25 MG PO SCH ×2 (09:30→20:17)
[2020-04-19] MEDS: ABILIFY PO SCH (09:30)
[2020-04-19] MEDS: SINEMET (PLAIN) 10/100 MG PO SCH ×2 (09:30→20:20)
[2020-04-19] MEDS: XANAX PO SCH (10:30)
[2020-04-19] MEDS: NEURONTIN TAB 600 MG PO SCH (10:36)
[2020-04-19] MEDS: LASIX IVP SCH (10:37)
--- NOTE | 2020-04-19 11:09 | PCM.PROG ---
Progress Note Progress Note for Day of Date of Exam: 04/18/20 Subjective Subjective: Patient seen at bedside, no acute events. Patient awake and alert this morning, eating breakfast. Patient has been accepted at [facility] in [place]. Patient's potassium continues to be elevated. She was suppose to get 4 doses of Kayexalate but only received 2. Her renal function has improved slightly from prior days. Plan: will give 10 units of regular IV insulin followed by D50, repeat BMP at 12. Plan to discharge to rehab today. CM aware. Patient's repeat BMP showed similar potassium, plan was to give another dose of Kayexalate prior to discharge. Patient was more drowsy during the day. EMS came and patient was transferred to the ambulance. Her sats on 3 L were noted to be 82% and then improved to 87%. Patient was extremely lethargic so discharge was cancelled. Patient was noted to have more crackles. Will get ABG, give IV Lasix one dose now. Monitor AM labs. Critical care time spent 31-74 mins with clinical assessment, reviewing imaging/labs, decision making and documentation. Past Medical Family Social History Past Med/Fam/Surg Hx: No changes since H&P Allergies: Allergies oxycodone Allergy (Verified 04/03/20 12:08) Review of Systems ROS: Changes notes (describe) Vital Signs and I&O's Vital Signs: Temperature 97.4 F Pulse Rate [Right Brachial] 80 Pulse Rate [Left Brachial] 76 Pulse Rate 66 Respiratory Rate 20 Blood Pressure [Right Arm] 137/61 Blood Pressure [Left Arm] 189/81 Blood Pressure [Right Arm] 101/52 Blood Pressure 107/49 O2 Sat by Pulse Oximetry 97 Intake and Output: Intake & Output 04/16/20 04/17/20 04/18/20 04/19/20 23:59 23:59 23:59 23:59 Intake Total 800 / 800 1910 / 1910 1400 / 1400 290 / 290 Output Total 675 / 675 1200 / 1200 530 / 530 220 / 220 Balance 125 / 125 710 / 710 870 / 870 70 / 70 Physical Exam Oriented: Normal Eyes: Normal Nose: Normal Throat: Normal Respiratory: Generalized, Diminished and [place] Cardiovascular: Normal and Edema (LE edema present, similar to prior exam ) Auscultation: Bowel Sounds: Normal and Other (colostomy bag present ) Tenderness: Normal and Other (colostomy noted ) Skin: Other (swelling of both upper ext resolved ) Musculoskeletal: Back:Thoracic, Back:Lumbar and Back:Paraspinous Psychiatric: Normal Mood Description: Calm Affect: Normal Speech Pattern: Appropriate Laboratory and Diagnostics Result Diagrams: 04/19/20 05:36 04/19/20 05:36 Labs: 04/16/20 10:25 Blood Blood Culture - Preliminary 04/16/20 10:05 Blood Blood Culture - Preliminary 04/16/20 13:45 Urine,Catheterized Urine Culture - Final 04/03/20 12:32 Blood Blood Culture - Final 04/03/20 12:28 Blood Blood Culture - Final 04/04/20 09:11 Sputum - Endotracheal Wash Sputum Culture - Final Klebsiella Pneumoniae 04/04/20 09:11 Sputum - Endotracheal Wash - Final 04/03/20 21:22 Urine,Catheterized Urine Culture - Final Enterococcus Faecalis Laboratory WBC 5.8 X10^3/uL (3.6-10.0) 04/19/20 05:36 RBC 3.18 X10^6/uL (3.5-5.4) L 04/19/20 05:36 Hgb 8.9 g/dL (12.0-16.0) L 04/19/20 05:36 Hct 27.8 % (36.0-47.0) L 04/19/20 05:36 MCV 87.4 fL (80.0-100.0) 04/19/20 05:36 MCH 27.9 pg (27.0-34.0) 04/19/20 05:36 MCHC 31.9 g/dL (33.0-35.0) L 04/19/20 05:36 RDW 16.5 % (11.6-16.5) 04/19/20 05:36 Plt Count 262 X10^3/uL (150.0-450.0) 04/19/20 05:36 Plt Count Comment Adequate (ADEQUATE) 04/19/20 05:36 MPV 8.2 fL (7.4-11.0) 04/19/20 05:36 Neut % (Auto) 66.8 % (42.0-75.0) 04/19/20 05:36 Lymph % (Auto) 19.9 % (21.0-51.0) L 04/19/20 05:36 [place] % (Auto) 7.4 % (0.0-13.0) 04/19/20 05:36 Eos % (Auto) 5.0 % (0.9-2.9) H 04/19/20 05:36 Baso % (Auto) 0.9 % (0.2-1.0) 04/19/20 05:36 Neut # (Auto) 3.9 x10^3/uL (2.2-4.8) 04/19/20 05:36 Lymph # (Auto) 1.2 X10^3/uL (1.3-2.9) L 04/19/20 05:36 [place] # (Auto) 0.4 x10^3/uL (0.3-0.8) 04/19/20 05:36 Eos # (Auto) 0.3 x10^3/uL (0.0-0.2) H 04/19/20 05:36 Baso # (Auto) 0.1 X10^3/uL (0.0-0.1) 04/19/20 05:36 Absolute Nucleated RBC 0.2 /100WBC 04/19/20 05:36 Total Counted 100 04/19/20 05:36 Neutrophils % (Manual) 58 % (39-76) 04/19/20 05:36 Band Neutrophils % 2 % (0-10) 04/19/20 05:36 Lymphocytes % (Manual) 26 % (13-43) 04/19/20 05:36 Monocytes % (Manual) 4 % (4-9) 04/19/20 05:36 Eosinophils % (Manual) 7 % (0-6) H 04/19/20 05:36 Metamyelocytes % 2 04/19/20 05:36 Myelocytes % 1 04/19/20 05:36 Plt Morphology Comment Normal (NORMAL) 04/19/20 05:36 RBC Morphology Normal (NORMAL) 04/19/20 05:36 PT 13.5 SECONDS (11.8-14.3) 04/04/20 05:55 INR Target Range - 04/04/20 05:55 INR 1.06 (0.8-1.3) 04/04/20 05:55 APTT 37.0 SECONDS (22.9-36.5) H 04/04/20 05:55 PTT Comment - 04/04/20 05:55 Sample Site Rr 04/18/20 18:09 ABG pH 7.260 (7.35-7.45) L 04/18/20 18:09 ABG pCO2 49.0 mmHg (35.0-45.0) H 04/18/20 18:09 ABG pO2 59.0 mmHg (80.0-100.0) L 04/18/20 18:09 ABG HCO3 22.0 mmol/L (22-26) 04/18/20 18:09 ABG O2 Saturation 86.0 % (90-100) L 04/18/20 18:09 ABG Base Excess -5.3 mmol/L (-2.0-2.0) L 04/18/20 18:09 Christos Test Pos 04/18/20 18:09 A-a Gradient 136.0 mmHg 04/18/20 18:09 FiO2 36.0 04/18/20 18:09 Blood Gas Comments Mayi well cb 04/18/20 18:09 Sodium 144 mmol/L (136-145) 04/19/20 05:36 Corrected Sodium TNP 04/19/20 05:36 Potassium 5.3 mmol/L (3.5-5.1) H 04/19/20 05:36 Chloride 113 mmol/L (98-107) H 04/19/20 05:36 Carbon Dioxide 21.6 mmol/L (21-32) 04/19/20 05:36 BUN 46 mg/dL (7-18) H 04/19/20 05:36 Creatinine 2.19 mg/dL (0.55-1.02) H 04/19/20 05:36 Est GFR (MDRD) Af Amer 29 (>60) L 04/19/20 05:36 Est GFR (MDRD) Non-Af 24 (>60) L 04/19/20 05:36 Glucose 92 mg/dL (65-99) 04/19/20 05:36 POC Glucose (mg/dL) 91 mg/dL (65-99) 04/19/20 03:54 Lactic Acid 0.6 mmol/L (0.4-2.0) 04/16/20 10:05 Calcium 9.3 mg/dL (8.5-10.1) 04/19/20 05:36 Corrected Calcium 10.2 mg/dL (8.5-10.1) H 04/16/20 05:15 Magnesium 2.2 mg/dL (1.7-2.9) 04/04/20 05:55 Total Bilirubin 0.20 mg/dL (0.2-1.0) 04/16/20 05:15 AST 21 Units/L (15-37) 04/16/20 05:15 ALT 10 Units/L (12-78) L 04/16/20 05:15 Alkaline Phosphatase 44 Units/L (46-116) L 04/16/20 05:15 Ammonia 15 umol/L (11-32) 04/16/20 09:04 Creatine Kinase 84 Units/L (26-192) 04/04/20 05:55 CK-MB (CK-2) 4.6 ng/mL (0-4.0) H* 04/04/20 05:55 CK/CKMB % Calc 5.5 % (<4) 04/04/20 05:55 Troponin I 0.34 ng/mL (0-1.5) 04/04/20 05:55 B-Natriuretic Peptide 162 pg/mL (0-79) H 04/10/20 05:41 Total Protein 6.1 g/dL (6.4-8.2) L 04/16/20 05:15 Albumin 2.3 g/dL (3.4-5.0) L 04/16/20 05:15 Globulin 3.8 g/dL (2.5-4.5) 04/16/20 05:15 Albumin/Globulin Ratio 0.6 Ratio (1.1-2.1) L 04/16/20 05:15 Specimen Type Catherized urine 04/16/20 13:45 Urine Color Yellow (YELLOW) 04/16/20 13:45 Urine Appearance Cloudy (CLEAR) 04/16/20 13:45 Urine pH 5.0 (5.0 - 8.0) 04/16/20 13:45 Ur Specific [place] 1.020 (1.000-1.030) 04/16/20 13:45 Urine Protein 4+ (NEGATIVE) 04/16/20 13:45 Urine Glucose (UA) Negative (NEGATIVE) 04/16/20 13:45 Urine Ketones 1+ (NEGATIVE) 04/16/20 13:45 Urine Occult Blood 2+ (NEGATIVE) 04/16/20 13:45 Urine Nitrite Negative (NEGATIVE) 04/16/20 13:45 Urine Bilirubin Negative (NEGATIVE) 04/16/20 13:45 Urine Urobilinogen Normal (NORMAL) 04/16/20 13:45 Ur Leukocyte Esterase 3+ (NEGATIVE) 04/16/20 13:45 Urine RBC 3-5 /HPF (0-3) A 04/16/20 13:45 Urine WBC 30-50 /HPF (0-5) A 04/16/20 13:45 Ur Squamous Epith Cells Rare /HPF (NEGATIVE) 04/16/20 13:45 Ur Renal Epithelial Cell Rare /HPF (NEGATIVE) 04/16/20 13:45 Amorphous Sediment 1+ /HPF (NEGATIVE) 04/16/20 13:45 Urine Bacteria Trace /HPF (NEGATIVE) 04/16/20 13:45 Coarse Granular Casts Few /HPF (NEGATIVE) 04/03/20 21:22 Urine Yeast Many /HPF (NEGATIVE) 04/16/20 13:45 Ur Culture Indicated? Yes/culture set up 04/16/20 13:45 Urine Creatinine 125.85 mg/dL (29-226) 04/11/20 14:01 Miscellaneous Test Resp panel 04/10/20 17:25 Blood Type O POSITIVE 04/06/20 13:00 Antibody Screen Negative 04/06/20 13:00 Crossmatch See Detail 04/06/20 13:00 Plan (1) Delirium: Status: Acute (2) Generalized weakness: Status: Acute (3) Acute on chronic renal failure: Status: Acute Qualifiers: Acute renal failure type: unspecified Chronic kidney disease stage: unspecified stage Qualified Code(s): N17.9 - Acute kidney failure, unspecified; N18.9 - Chronic kidney disease, unspecified (4) Acute on chronic respiratory failure with hypoxia and hypercapnia: Status: Acute (5) AMS (altered mental status): Status: Acute Qualifiers: Altered mental status type: transient alteration of awareness Qualified Code(s): R40.4 - Transient alteration of awareness (6) Hyperkalemia: Status: Acute (7) Obesity hypoventilation syndrome: Status: Acute (8) Uncontrolled type 2 diabetes mellitus: Status: Acute Qualifiers: Glycemic state: with hyperglycemia Qualified Code(s): E11.65 - Type 2 diabetes mellitus with hyperglycemia (9) Klebsiella pneumonia: Status: Acute Qualifiers: Laterality: bilateral Lung location: unspecified part of lung Qualified Code(s): J15.0 - Pneumonia due to Klebsiella pneumoniae (10) Enterococcus UTI: Status: Acute (11) COPD (chronic obstructive pulmonary disease): Status: Acute Qualifiers: COPD type: unspecified COPD Qualified Code(s): J44.9 - Chronic obstructive pulmonary disease, unspecified (12) Hypertension associated with stage 2 chronic kidney disease due to type 2 diabetes mellitus: Status: Acute
--- NOTE | 2020-04-19 11:10 | PCM.PROG ---
Progress Note Progress Note for Day of Date of Exam: 04/19/20 Subjective Subjective: Patient seen at bedside. Patient was on BiPAP overnight and now placed on 3L NC. She is awake and alert, able to follow commands. Patient states she does not recall what happened in the evening. She states she feels better now. She states her breathing is better. Labs: Hgb 8.9 Na: 5.3 Na 144 BUN/Cr: 46/2.19 Glu 92 AB.26/49/59/22 Plan: patient's intermittent lethargy likely related to her medications and impaired renal function. She did receive Xanax and gabapentin yesterday morning. Will hold those 2 for now. Continue pain medication. Continue ampicillin. Give Lasix 40 mg IV daily. Monitor UOP and am labs. Repeat CXR tomorrow. Time spent 31-74 mins in clinical assessment, reviewing labs/imaging, decision making and documentation. Past Medical Family Social History Past Med/Fam/Surg Hx: No changes since H&P Allergies: Allergies oxycodone Allergy (Verified 04/03/20 12:08) Review of Systems ROS: Changes notes (describe) Vital Signs and I&O's Vital Signs: Temperature 97.4 F Pulse Rate [Right Brachial] 80 Pulse Rate [Left Brachial] 76 Pulse Rate 66 Respiratory Rate 20 Blood Pressure [Right Arm] 137/61 Blood Pressure [Left Arm] 189/81 Blood Pressure [Right Arm] 101/52 Blood Pressure 107/49 O2 Sat by Pulse Oximetry 97 Intake and Output: Intake & Output 04/16/20 04/17/20 04/18/20 04/19/20 23:59 23:59 23:59 23:59 Intake Total 800 / 800 1910 / 1910 1400 / 1400 290 / 290 Output Total 675 / 675 1200 / 1200 530 / 530 220 / 220 Balance 125 / 125 710 / 710 870 / 870 70 / 70 Physical Exam Oriented: Normal Eyes: Normal Nose: Normal Throat: Normal Respiratory: Generalized, Diminished and Rales Cardiovascular: Normal and Edema (LE edema present, similar to prior exam ) Auscultation: Bowel Sounds: Normal and Other (colostomy bag present ) Tenderness: Normal and Other (colostomy noted, mild surounding erythema around the stoma. Bag changed today ) Skin: Other (swelling of both upper ext resolved ) Musculoskeletal: Back:Thoracic, Back:Lumbar and Back:Paraspinous Psychiatric: Normal Mood Description: Calm Affect: Normal Speech Pattern: Clear and Appropriate Laboratory and Diagnostics Result Diagrams: 04/19/20 05:36 04/19/20 05:36 Labs: 04/16/20 10:25 Blood Blood Culture - Preliminary 04/16/20 10:05 Blood Blood Culture - Preliminary 04/16/20 13:45 Urine,Catheterized Urine Culture - Final 04/03/20 12:32 Blood Blood Culture - Final 04/03/20 12:28 Blood Blood Culture - Final 04/04/20 09:11 Sputum - Endotracheal Wash Sputum Culture - Final Klebsiella Pneumoniae 04/04/20 09:11 Sputum - Endotracheal Wash - Final 04/03/20 21:22 Urine,Catheterized Urine Culture - Final Enterococcus Faecalis Laboratory WBC 5.8 X10^3/uL (3.6-10.0) 04/19/20 05:36 RBC 3.18 X10^6/uL (3.5-5.4) L 04/19/20 05:36 Hgb 8.9 g/dL (12.0-16.0) L 04/19/20 05:36 Hct 27.8 % (36.0-47.0) L 04/19/20 05:36 MCV 87.4 fL (80.0-100.0) 04/19/20 05:36 MCH 27.9 pg (27.0-34.0) 04/19/20 05:36 MCHC 31.9 g/dL (33.0-35.0) L 04/19/20 05:36 RDW 16.5 % (11.6-16.5) 04/19/20 05:36 Plt Count 262 X10^3/uL (150.0-450.0) 04/19/20 05:36 Plt Count Comment Adequate (ADEQUATE) 04/19/20 05:36 MPV 8.2 fL (7.4-11.0) 04/19/20 05:36 Neut % (Auto) 66.8 % (42.0-75.0) 04/19/20 05:36 Lymph % (Auto) 19.9 % (21.0-51.0) L 04/19/20 05:36 [place] % (Auto) 7.4 % (0.0-13.0) 04/19/20 05:36 Eos % (Auto) 5.0 % (0.9-2.9) H 04/19/20 05:36 Baso % (Auto) 0.9 % (0.2-1.0) 04/19/20 05:36 Neut # (Auto) 3.9 x10^3/uL (2.2-4.8) 04/19/20 05:36 Lymph # (Auto) 1.2 X10^3/uL (1.3-2.9) L 04/19/20 05:36 [place] # (Auto) 0.4 x10^3/uL (0.3-0.8) 04/19/20 05:36 Eos # (Auto) 0.3 x10^3/uL (0.0-0.2) H 04/19/20 05:36 Baso # (Auto) 0.1 X10^3/uL (0.0-0.1) 04/19/20 05:36 Absolute Nucleated RBC 0.2 /100WBC 04/19/20 05:36 Total Counted 100 04/19/20 05:36 Neutrophils % (Manual) 58 % (39-76) 04/19/20 05:36 Band Neutrophils % 2 % (0-10) 04/19/20 05:36 Lymphocytes % (Manual) 26 % (13-43) 04/19/20 05:36 Monocytes % (Manual) 4 % (4-9) 04/19/20 05:36 Eosinophils % (Manual) 7 % (0-6) H 04/19/20 05:36 Metamyelocytes % 2 04/19/20 05:36 Myelocytes % 1 04/19/20 05:36 Plt Morphology Comment Normal (NORMAL) 04/19/20 05:36 RBC Morphology Normal (NORMAL) 04/19/20 05:36 PT 13.5 SECONDS (11.8-14.3) 04/04/20 05:55 INR Target Range - 04/04/20 05:55 INR 1.06 (0.8-1.3) 04/04/20 05:55 APTT 37.0 SECONDS (22.9-36.5) H 04/04/20 05:55 PTT Comment - 04/04/20 05:55 Sample Site Rr 04/18/20 18:09 ABG pH 7.260 (7.35-7.45) L 04/18/20 18:09 ABG pCO2 49.0 mmHg (35.0-45.0) H 04/18/20 18:09 ABG pO2 59.0 mmHg (80.0-100.0) L 04/18/20 18:09 ABG HCO3 22.0 mmol/L (22-26) 04/18/20 18:09 ABG O2 Saturation 86.0 % (90-100) L 04/18/20 18:09 ABG Base Excess -5.3 mmol/L (-2.0-2.0) L 04/18/20 18:09 Christos Test Pos 04/18/20 18:09 A-a Gradient 136.0 mmHg 04/18/20 18:09 FiO2 36.0 04/18/20 18:09 Blood Gas Comments Mayi well cb 04/18/20 18:09 Sodium 144 mmol/L (136-145) 04/19/20 05:36 Corrected Sodium TNP 04/19/20 05:36 Potassium 5.3 mmol/L (3.5-5.1) H 04/19/20 05:36 Chloride 113 mmol/L (98-107) H 04/19/20 05:36 Carbon Dioxide 21.6 mmol/L (21-32) 04/19/20 05:36 BUN 46 mg/dL (7-18) H 04/19/20 05:36 Creatinine 2.19 mg/dL (0.55-1.02) H 04/19/20 05:36 Est GFR (MDRD) Af Amer 29 (>60) L 04/19/20 05:36 Est GFR (MDRD) Non-Af 24 (>60) L 04/19/20 05:36 Glucose 92 mg/dL (65-99) 04/19/20 05:36 POC Glucose (mg/dL) 91 mg/dL (65-99) 04/19/20 03:54 Lactic Acid 0.6 mmol/L (0.4-2.0) 04/16/20 10:05 Calcium 9.3 mg/dL (8.5-10.1) 04/19/20 05:36 Corrected Calcium 10.2 mg/dL (8.5-10.1) H 04/16/20 05:15 Magnesium 2.2 mg/dL (1.7-2.9) 04/04/20 05:55 Total Bilirubin 0.20 mg/dL (0.2-1.0) 04/16/20 05:15 AST 21 Units/L (15-37) 04/16/20 05:15 ALT 10 Units/L (12-78) L 04/16/20 05:15 Alkaline Phosphatase 44 Units/L (46-116) L 04/16/20 05:15 Ammonia 15 umol/L (11-32) 04/16/20 09:04 Creatine Kinase 84 Units/L (26-192) 04/04/20 05:55 CK-MB (CK-2) 4.6 ng/mL (0-4.0) H* 04/04/20 05:55 CK/CKMB % Calc 5.5 % (<4) 04/04/20 05:55 Troponin I 0.34 ng/mL (0-1.5) 04/04/20 05:55 B-Natriuretic Peptide 162 pg/mL (0-79) H 04/10/20 05:41 Total Protein 6.1 g/dL (6.4-8.2) L 04/16/20 05:15 Albumin 2.3 g/dL (3.4-5.0) L 04/16/20 05:15 Globulin 3.8 g/dL (2.5-4.5) 04/16/20 05:15 Albumin/Globulin Ratio 0.6 Ratio (1.1-2.1) L 04/16/20 05:15 Specimen Type Catherized urine 04/16/20 13:45 Urine Color Yellow (YELLOW) 04/16/20 13:45 Urine Appearance Cloudy (CLEAR) 04/16/20 13:45 Urine pH 5.0 (5.0 - 8.0) 04/16/20 13:45 Ur Specific [place] 1.020 (1.000-1.030) 04/16/20 13:45 Urine Protein 4+ (NEGATIVE) 04/16/20 13:45 Urine Glucose (UA) Negative (NEGATIVE) 04/16/20 13:45 Urine Ketones 1+ (NEGATIVE) 04/16/20 13:45 Urine Occult Blood 2+ (NEGATIVE) 04/16/20 13:45 Urine Nitrite Negative (NEGATIVE) 04/16/20 13:45 Urine Bilirubin Negative (NEGATIVE) 04/16/20 13:45 Urine Urobilinogen Normal (NORMAL) 04/16/20 13:45 Ur Leukocyte Esterase 3+ (NEGATIVE) 04/16/20 13:45 Urine RBC 3-5 /HPF (0-3) A 04/16/20 13:45 Urine WBC 30-50 /HPF (0-5) A 04/16/20 13:45 Ur Squamous Epith Cells Rare /HPF (NEGATIVE) 04/16/20 13:45 Ur Renal Epithelial Cell Rare /HPF (NEGATIVE) 04/16/20 13:45 Amorphous Sediment 1+ /HPF (NEGATIVE) 04/16/20 13:45 Urine Bacteria Trace /HPF (NEGATIVE) 04/16/20 13:45 Coarse Granular Casts Few /HPF (NEGATIVE) 04/03/20 21:22 Urine Yeast Many /HPF (NEGATIVE) 04/16/20 13:45 Ur Culture Indicated? Yes/culture set up 04/16/20 13:45 Urine Creatinine 125.85 mg/dL (29-226) 04/11/20 14:01 Miscellaneous Test Resp panel 04/10/20 17:25 Blood Type O POSITIVE 04/06/20 13:00 Antibody Screen Negative 04/06/20 13:00 Crossmatch See Detail 04/06/20 13:00 Plan (1) Delirium: Status: Acute (2) Generalized weakness: Status: Acute (3) Acute on chronic renal failure: Status: Acute Qualifiers: Acute renal failure type: unspecified Chronic kidney disease stage: unspecified stage Qualified Code(s): N17.9 - Acute kidney failure, unspecified; N18.9 - Chronic kidney disease, unspecified (4) Acute on chronic respiratory failure with hypoxia and hypercapnia: Status: Acute (5) AMS (altered mental status): Status: Acute Qualifiers: Altered mental status type: transient alteration of awareness Qualified Code(s): R40.4 - Transient alteration of awareness (6) Hyperkalemia: Status: Acute (7) Obesity hypoventilation syndrome: Status: Acute (8) Uncontrolled type 2 diabetes mellitus: Status: Acute Qualifiers: Glycemic state: with hyperglycemia Qualified Code(s): E11.65 - Type 2 diabetes mellitus with hyperglycemia (9) Klebsiella pneumonia: Status: Acute Qualifiers: Laterality: bilateral Lung location: unspecified part of lung Qualified Code(s): J15.0 - Pneumonia due to Klebsiella pneumoniae (10) Enterococcus UTI: Status: Acute (11) COPD (chronic obstructive pulmonary disease): Status: Acute Qualifiers: COPD type: unspecified COPD Qualified Code(s): J44.9 - Chronic obstructive pulmonary disease, unspecified (12) Hypertension associated with stage 2 chronic kidney disease due to type 2 diabetes mellitus: Status: Acute
[2020-04-19] MEDS ORDERED: ZOFRAN INJ 4 MG VIAL ONE (14:32)
[2020-04-19] MEDS: ZOFRAN INJ 4 MG VIAL IVP PRN ×2 (14:38→20:30)
[2020-04-19] MEDS: ZOCOR TAB 40 MG PO SCH (20:23)
[2020-04-19] MEDS: SNACK - Diabetic Appropriate PO SCH (20:29)
[2020-04-20] MEDS: AMPICILLIN VIAL 1 GRAM 1 G in NS 100 ML IV + SPIKE MINIBAG* 100 ML IV SCH ×3 (00:56→17:10)
[2020-04-20 05:58] LABS: CARBON DIOXIDE 23.5 mmol/L (21-32); CREATININE 2.34 mg/dL (0.55-1.02)
[2020-04-20] MEDS: DUONEB 0.5 MG/3 MG (3 mL) NEB SCH ×6 (06:05→17:33)
[2020-04-20 06:12] LABS: BASOPHILS # (AUTO) 0.1 X10^3/uL (0.0-0.1); EOSINOPHILS # (AUTO) 0.3 x10^3/uL (0.0-0.2); HEMATOCRIT 27.9 % (36.0-47.0); HEMOGLOBIN 8.5 g/dL (12.0-16.0); LYMPHOCYTES % (AUTO) 15.9 % (21.0-51.0); MEAN CORPUSCULAR HEMOGLOBIN 27.2 pg (27.0-34.0); MEAN CORPUSCULAR HGB CONC 30.6 g/dL (33.0-35.0); MEAN CORPUSCULAR VOLUME 88.9 fL (80.0-100.0); MEAN PLATELET VOLUME 8.5 fL (7.4-11.0); MONOCYTES # (AUTO) 0.5 x10^3/uL (0.3-0.8); MONOCYTES % (AUTO) 7.5 % (0.0-13.0); NEUTROPHILS # (AUTO) 4.6 x10^3/uL (2.2-4.8); NEUTROPHILS % (AUTO) 71.6 % (42.0-75.0); PLATELET COUNT 219 X10^3/uL (150.0-450.0); RED BLOOD COUNT 3.14 X10^6/uL (3.5-5.4); RED CELL DISTRIBUTION WIDTH 16.9 % (11.6-16.5); WHITE BLOOD COUNT 6.5 X10^3/uL (3.6-10.0)
[2020-04-20 07:17] LABS: BAND NEUTROPHILS % 9 % (0-10); METAMYELOCYTES % 1; MYELOCYTES % 1; PLATELET MORPHOLOGY COMMENT NORMAL (NORMAL)
[2020-04-20] MEDS: LASIX IVP SCH ×2 (08:22→10:51)
[2020-04-20] MEDS: ABILIFY PO SCH (08:23)
[2020-04-20] MEDS: PEPCID TAB 20 MG PO SCH (08:23)
[2020-04-20] MEDS: SYNTHROID 125 mcg TAB PO SCH (08:24)
[2020-04-20] MEDS: COREG TAB 25 MG PO SCH ×2 (08:24→20:36)
[2020-04-20] MEDS: APRESOLINE TAB 25 MG PO SCH ×2 (08:24→20:28)
[2020-04-20] MEDS: SINEMET (PLAIN) 10/100 MG PO SCH ×2 (08:24→20:38)
[2020-04-20] MEDS: HEPARIN SODIUM INJ 5000 UNITS SC SCH ×2 (08:25→20:41)
[2020-04-20] MEDS: EUCERIN TOP SCH ×2 (08:35→20:40)
[2020-04-20] MEDS: NYSTATIN POWDER TOP SCH ×2 (08:35→20:40)
[2020-04-20] MEDS: TEMOVATE CREAM EXT SCH ×2 (08:35→20:39)
[2020-04-20] MEDS: NORCO 7.5/325 MG TAB PO PRN ×2 (09:20→17:00)
[2020-04-20] MEDS ORDERED: LASIX ONE (09:47)
--- NOTE | 2020-04-20 10:36 | PCM.PROG ---
Progress Note Progress Note for Day of Date of Exam: 04/20/20 Subjective Subjective: Patient seen at bedside, no overnight events. She states she feels better. She is awake and alert. She had Glucerna for breakfast. Her UOP has been low. She did receive 40 mg IV Lasix yesterday. Labs: K:5.5 Hgb 8.5 BUN/Cr: 47/2.34 Glucose 121 Plan: will decrease to 20 mg IV Lasix daily, give Kayexalate x 4 doses. Monitor UOP and AM labs. BiPAP qHS. Continue Ampicillin. Past Medical Family Social History Past Med/Fam/Surg Hx: No changes since H&P Allergies: Allergies oxycodone Allergy (Verified 04/03/20 12:08) Review of Systems ROS: Changes notes (describe) Vital Signs and I&O's Vital Signs: Temperature 96.4 F Pulse Rate [Right Brachial] 70 Pulse Rate [Left Brachial] 76 Pulse Rate 65 Respiratory Rate 18 Blood Pressure [Right Arm] 137/61 Blood Pressure [Left Arm] 127/59 Blood Pressure [Right Arm] 101/52 Blood Pressure 107/49 O2 Sat by Pulse Oximetry 94 Intake and Output: Intake & Output 04/17/20 04/18/20 04/19/20 04/20/20 23:59 23:59 23:59 23:59 Intake Total 1910 / 1910 1400 / 1400 1310 / 1310 120 / 120 Output Total 1200 / 1200 530 / 530 520 / 520 125 / 125 Balance 710 / 710 870 / 870 790 / 790 -5 / -5 Physical Exam Oriented: Normal Eyes: Normal Nose: Normal Throat: Normal Respiratory: Generalized, Diminished and Rales Cardiovascular: Normal and Edema (LE edema present, similar to prior exam ) Auscultation: Bowel Sounds: Normal and Other (colostomy bag present ) Tenderness: Normal and Other (colostomy noted, mild surounding erythema around the stoma. Bag changed today ) Skin: Other (swelling of both upper ext resolved ) Musculoskeletal: Back:Thoracic, Back:Lumbar and Back:Paraspinous Psychiatric: Normal Mood Description: Calm Affect: Normal Speech Pattern: Appropriate Laboratory and Diagnostics Result Diagrams: 04/20/20 05:25 04/20/20 05:25 Labs: 04/16/20 10:25 Blood Blood Culture - Preliminary 04/16/20 10:05 Blood Blood Culture - Preliminary 04/16/20 13:45 Urine,Catheterized Urine Culture - Final 04/03/20 12:32 Blood Blood Culture - Final 04/03/20 12:28 Blood Blood Culture - Final 04/04/20 09:11 Sputum - Endotracheal Wash Sputum Culture - Final Klebsiella Pneumoniae 04/04/20 09:11 Sputum - Endotracheal Wash - Final 04/03/20 21:22 Urine,Catheterized Urine Culture - Final Enterococcus Faecalis Laboratory WBC 6.5 X10^3/uL (3.6-10.0) 04/20/20 05:25 RBC 3.14 X10^6/uL (3.5-5.4) L 04/20/20 05:25 Hgb 8.5 g/dL (12.0-16.0) L 04/20/20 05:25 Hct 27.9 % (36.0-47.0) L 04/20/20 05:25 MCV 88.9 fL (80.0-100.0) 04/20/20 05:25 MCH 27.2 pg (27.0-34.0) 04/20/20 05:25 MCHC 30.6 g/dL (33.0-35.0) L 04/20/20 05:25 RDW 16.9 % (11.6-16.5) H 04/20/20 05:25 Plt Count 219 X10^3/uL (150.0-450.0) 04/20/20 05:25 Plt Count Comment Adequate (ADEQUATE) 04/20/20 05:25 MPV 8.5 fL (7.4-11.0) 04/20/20 05:25 Neut % (Auto) 71.6 % (42.0-75.0) 04/20/20 05:25 Lymph % (Auto) 15.9 % (21.0-51.0) L 04/20/20 05:25 [place] % (Auto) 7.5 % (0.0-13.0) 04/20/20 05:25 Eos % (Auto) 4.0 % (0.9-2.9) H 04/20/20 05:25 Baso % (Auto) 1.0 % (0.2-1.0) 04/20/20 05:25 Neut # (Auto) 4.6 x10^3/uL (2.2-4.8) 04/20/20 05:25 Lymph # (Auto) 1.0 X10^3/uL (1.3-2.9) L 04/20/20 05:25 [place] # (Auto) 0.5 x10^3/uL (0.3-0.8) 04/20/20 05:25 Eos # (Auto) 0.3 x10^3/uL (0.0-0.2) H 04/20/20 05:25 Baso # (Auto) 0.1 X10^3/uL (0.0-0.1) 04/20/20 05:25 Absolute Nucleated RBC 0.2 /100WBC 04/20/20 05:25 Total Counted 100 04/20/20 05:25 Neutrophils % (Manual) 57 % (39-76) 04/20/20 05:25 Band Neutrophils % 9 % (0-10) 04/20/20 05:25 Lymphocytes % (Manual) 24 % (13-43) 04/20/20 05:25 Monocytes % (Manual) 4 % (4-9) 04/20/20 05:25 Eosinophils % (Manual) 4 % (0-6) 04/20/20 05:25 Metamyelocytes % 1 04/20/20 05:25 Myelocytes % 1 04/20/20 05:25 Nucleated RBCs 1 04/20/20 05:25 Plt Morphology Comment Normal (NORMAL) 04/20/20 05:25 RBC Morphology Normal (NORMAL) 04/20/20 05:25 PT 13.5 SECONDS (11.8-14.3) 04/04/20 05:55 INR Target Range - 04/04/20 05:55 INR 1.06 (0.8-1.3) 04/04/20 05:55 APTT 37.0 SECONDS (22.9-36.5) H 04/04/20 05:55 PTT Comment - 04/04/20 05:55 Sample Site Rr 04/18/20 18:09 ABG pH 7.260 (7.35-7.45) L 04/18/20 18:09 ABG pCO2 49.0 mmHg (35.0-45.0) H 04/18/20 18:09 ABG pO2 59.0 mmHg (80.0-100.0) L 04/18/20 18:09 ABG HCO3 22.0 mmol/L (22-26) 04/18/20 18:09 ABG O2 Saturation 86.0 % (90-100) L 04/18/20 18:09 ABG Base Excess -5.3 mmol/L (-2.0-2.0) L 04/18/20 18:09 Christos Test Pos 04/18/20 18:09 A-a Gradient 136.0 mmHg 04/18/20 18:09 FiO2 36.0 04/18/20 18:09 Blood Gas Comments Mayi well cb 04/18/20 18:09 Sodium 141 mmol/L (136-145) 04/20/20 05:25 Corrected Sodium 142 mmol/L (136-145) 04/20/20 05:25 Potassium 5.5 mmol/L (3.5-5.1) H 04/20/20 05:25 Chloride 111 mmol/L (98-107) H 04/20/20 05:25 Carbon Dioxide 23.5 mmol/L (21-32) 04/20/20 05:25 BUN 47 mg/dL (7-18) H 04/20/20 05:25 Creatinine 2.34 mg/dL (0.55-1.02) H 04/20/20 05:25 Est GFR (MDRD) Af Amer 27 (>60) L 04/20/20 05:25 Est GFR (MDRD) Non-Af 22 (>60) L 04/20/20 05:25 Glucose 121 mg/dL (65-99) H 04/20/20 05:25 POC Glucose (mg/dL) 129 mg/dL (65-99) H 04/19/20 20:16 Lactic Acid 0.6 mmol/L (0.4-2.0) 04/16/20 10:05 Calcium 9.0 mg/dL (8.5-10.1) 04/20/20 05:25 Corrected Calcium 10.2 mg/dL (8.5-10.1) H 04/16/20 05:15 Magnesium 2.2 mg/dL (1.7-2.9) 04/04/20 05:55 Total Bilirubin 0.20 mg/dL (0.2-1.0) 04/16/20 05:15 AST 21 Units/L (15-37) 04/16/20 05:15 ALT 10 Units/L (12-78) L 04/16/20 05:15 Alkaline Phosphatase 44 Units/L (46-116) L 04/16/20 05:15 Ammonia 15 umol/L (11-32) 04/16/20 09:04 Creatine Kinase 84 Units/L (26-192) 04/04/20 05:55 CK-MB (CK-2) 4.6 ng/mL (0-4.0) H* 04/04/20 05:55 CK/CKMB % Calc 5.5 % (<4) 04/04/20 05:55 Troponin I 0.34 ng/mL (0-1.5) 04/04/20 05:55 B-Natriuretic Peptide 162 pg/mL (0-79) H 04/10/20 05:41 Total Protein 6.1 g/dL (6.4-8.2) L 04/16/20 05:15 Albumin 2.3 g/dL (3.4-5.0) L 04/16/20 05:15 Globulin 3.8 g/dL (2.5-4.5) 04/16/20 05:15 Albumin/Globulin Ratio 0.6 Ratio (1.1-2.1) L 04/16/20 05:15 Specimen Type Catherized urine 04/16/20 13:45 Urine Color Yellow (YELLOW) 04/16/20 13:45 Urine Appearance Cloudy (CLEAR) 04/16/20 13:45 Urine pH 5.0 (5.0 - 8.0) 04/16/20 13:45 Ur Specific [place] 1.020 (1.000-1.030) 04/16/20 13:45 Urine Protein 4+ (NEGATIVE) 04/16/20 13:45 Urine Glucose (UA) Negative (NEGATIVE) 04/16/20 13:45 Urine Ketones 1+ (NEGATIVE) 04/16/20 13:45 Urine Occult Blood 2+ (NEGATIVE) 04/16/20 13:45 Urine Nitrite Negative (NEGATIVE) 04/16/20 13:45 Urine Bilirubin Negative (NEGATIVE) 04/16/20 13:45 Urine Urobilinogen Normal (NORMAL) 04/16/20 13:45 Ur Leukocyte Esterase 3+ (NEGATIVE) 04/16/20 13:45 Urine RBC 3-5 /HPF (0-3) A 04/16/20 13:45 Urine WBC 30-50 /HPF (0-5) A 04/16/20 13:45 Ur Squamous Epith Cells Rare /HPF (NEGATIVE) 04/16/20 13:45 Ur Renal Epithelial Cell Rare /HPF (NEGATIVE) 04/16/20 13:45 Amorphous Sediment 1+ /HPF (NEGATIVE) 04/16/20 13:45 Urine Bacteria Trace /HPF (NEGATIVE) 04/16/20 13:45 Coarse Granular Casts Few /HPF (NEGATIVE) 04/03/20 21:22 Urine Yeast Many /HPF (NEGATIVE) 04/16/20 13:45 Ur Culture Indicated? Yes/culture set up 04/16/20 13:45 Urine Creatinine 125.85 mg/dL (29-226) 04/11/20 14:01 Miscellaneous Test Resp panel 04/10/20 17:25 Blood Type O POSITIVE 04/06/20 13:00 Antibody Screen Negative 04/06/20 13:00 Crossmatch See Detail 04/06/20 13:00 Plan (1) Delirium: Status: Acute (2) Generalized weakness: Status: Acute (3) Acute on chronic renal failure: Status: Acute Qualifiers: Acute renal failure type: unspecified Chronic kidney disease stage: unspecified stage Qualified Code(s): N17.9 - Acute kidney failure, unspecified; N18.9 - Chronic kidney disease, unspecified (4) Acute on chronic respiratory failure with hypoxia and hypercapnia: Status: Acute (5) AMS (altered mental status): Status: Acute Qualifiers: Altered mental status type: transient alteration of awareness Qualified Code(s): R40.4 - Transient alteration of awareness (6) Hyperkalemia: Status: Acute (7) Obesity hypoventilation syndrome: Status: Acute (8) Uncontrolled type 2 diabetes mellitus: Status: Acute Qualifiers: Glycemic state: with hyperglycemia Qualified Code(s): E11.65 - Type 2 diabetes mellitus with hyperglycemia (9) Klebsiella pneumonia: Status: Acute Qualifiers: Laterality: bilateral Lung location: unspecified part of lung Qualified Code(s): J15.0 - Pneumonia due to Klebsiella pneumoniae (10) Enterococcus UTI: Status: Acute (11) COPD (chronic obstructive pulmonary disease): Status: Acute Qualifiers: COPD type: unspecified COPD Qualified Code(s): J44.9 - Chronic obstructive pulmonary disease, unspecified (12) Hypertension associated with stage 2 chronic kidney disease due to type 2 diabetes mellitus: Status: Acute
[2020-04-20] MEDS: KAYEXALATE SUSP PO SCH ×2 (11:50→22:09)
[2020-04-20] MEDS ORDERED: DUONEB 0.5 MG/3 MG (3 mL) NEB ONE (16:39)
[2020-04-20] MEDS: SNACK - Diabetic Appropriate PO SCH (20:27)
[2020-04-20] MEDS: ZOCOR TAB 40 MG PO SCH (20:29)
[2020-04-21] MEDS: DUONEB 0.5 MG/3 MG (3 mL) NEB SCH ×4 (00:25→17:20)
[2020-04-21] MEDS: AMPICILLIN VIAL 1 GRAM 1 G in NS 100 ML IV + SPIKE MINIBAG* 100 ML IV SCH ×3 (01:12→18:13)
[2020-04-21 06:34] LABS: CREATININE 2.72 mg/dL (0.55-1.02)
[2020-04-21 06:36] LABS: BASOPHILS # (AUTO) 0.1 X10^3/uL (0.0-0.1); BASOPHILS % (AUTO) 1.3 % (0.2-1.0); EOSINOPHILS # (AUTO) 0.2 x10^3/uL (0.0-0.2); EOSINOPHILS % (AUTO) 2.5 % (0.9-2.9); HEMATOCRIT 27.3 % (36.0-47.0); HEMOGLOBIN 8.6 g/dL (12.0-16.0); LYMPHOCYTES # (AUTO) 1.3 X10^3/uL (1.3-2.9); LYMPHOCYTES % (AUTO) 13.6 % (21.0-51.0); MEAN CORPUSCULAR HEMOGLOBIN 27.6 pg (27.0-34.0); MEAN CORPUSCULAR HGB CONC 31.5 g/dL (33.0-35.0); MEAN CORPUSCULAR VOLUME 87.7 fL (80.0-100.0); MEAN PLATELET VOLUME 8.5 fL (7.4-11.0); MONOCYTES # (AUTO) 0.7 x10^3/uL (0.3-0.8); MONOCYTES % (AUTO) 7.2 % (0.0-13.0); NEUTROPHILS % (AUTO) 75.4 % (42.0-75.0); PLATELET COUNT 226 X10^3/uL (150.0-450.0); RED BLOOD COUNT 3.11 X10^6/uL (3.5-5.4); WHITE BLOOD COUNT 9.3 X10^3/uL (3.6-10.0)
[2020-04-21 07:15] LABS: GIANT PLATELET NOTED; PLATELET MORPHOLOGY COMMENT ABNORMAL (NORMAL)
[2020-04-21] MEDS ORDERED: D50W ABBOJECT SYR IV ONE ×2 (08:08→15:23)
[2020-04-21] MEDS ORDERED: HumuLIN R IV ONE (08:08)
[2020-04-21] MEDS ORDERED: LASIX IVP SCH (09:00)
[2020-04-21] MEDS: COREG TAB 25 MG PO SCH ×2 (09:09→21:22)
[2020-04-21] MEDS: APRESOLINE TAB 25 MG PO SCH ×2 (09:09→21:22)
[2020-04-21] MEDS: EUCERIN TOP SCH ×2 (09:09→21:23)
[2020-04-21] MEDS: ABILIFY PO SCH (09:10)
[2020-04-21] MEDS: HEPARIN SODIUM INJ 5000 UNITS SC SCH ×2 (09:10→21:23)
[2020-04-21] MEDS: NORCO 7.5/325 MG TAB PO PRN ×2 (09:10→21:29)
[2020-04-21] MEDS: KAYEXALATE SUSP PO SCH ×2 (09:11→21:23)
[2020-04-21] MEDS: NYSTATIN POWDER TOP SCH ×2 (09:11→21:24)
[2020-04-21] MEDS: SINEMET (PLAIN) 10/100 MG PO SCH ×2 (09:12→21:24)
[2020-04-21] MEDS: TEMOVATE CREAM EXT SCH ×2 (09:12→21:25)
[2020-04-21] MEDS: SYNTHROID 125 mcg TAB PO SCH (09:12)
[2020-04-21] MEDS ORDERED: HumuLIN R SUBCUT ONE (15:24)
[2020-04-21] MEDS: TYLENOL 325 MG TAB PO PRN (16:00)
[2020-04-21] MEDS ORDERED: KAYEXALATE SUSP PO NR (16:00)
--- NOTE | 2020-04-21 16:05 | PCM.PROG ---
Progress Note Progress Note for Day of Date of Exam: 04/21/20 Subjective Subjective: Patient seen at bedside, no overnight events. She states she feels better. She is awake and alert. She did not wear the Bipap at night. She has been on 3L NC. She has been accepted at [facility] in [place] for STR. Labs: K:5.9 Hgb 8.6 Cr: 2.72 Plan: Will give another dose of Insulin IV 10 units + D50, continue Kayexalate. Continue ampicillin. [facility] was contacted regarding patient's transfer to there facility but would like to have potassium levels repeated and within normal limits prior to transfer. Past Medical Family Social History Past Med/Fam/Surg Hx: No changes since H&P Allergies: Allergies oxycodone Allergy (Verified 04/03/20 12:08) Review of Systems ROS: Changes notes (describe) Vital Signs and I&O's Vital Signs: Temperature 98 F Pulse Rate [Right Brachial] 81 Pulse Rate [Left Brachial] 71 Pulse Rate 77 Respiratory Rate 24 Blood Pressure [Right Arm] 150/65 Blood Pressure [Left Arm] 134/58 Blood Pressure [Right Arm] 101/52 Blood Pressure 107/49 O2 Sat by Pulse Oximetry 95 Intake and Output: Intake & Output 04/18/20 04/19/20 04/20/20 04/21/20 23:59 23:59 23:59 23:59 Intake Total 1400 / 1400 1310 / 1310 1068 / 1068 670 / 670 Output Total 530 / 530 520 / 520 525 / 525 550 / 550 Balance 870 / 870 790 / 790 543 / 543 120 / 120 Physical Exam Oriented: Normal Eyes: Normal Nose: Normal Throat: Normal Respiratory: Generalized and Diminished Cardiovascular: Normal and Edema (LE edema present, similar to prior exam ) Auscultation: Bowel Sounds: Normal and Other (colostomy bag present ) Tenderness: Normal and Other (colostomy noted, mild surounding erythema around the stoma. Bag changed today ) Skin: Other (swelling of both upper ext resolved ) Musculoskeletal: Back:Thoracic, Back:Lumbar and Back:Paraspinous Psychiatric: Normal Mood Description: Calm Affect: Normal Speech Pattern: Clear and Appropriate Laboratory and Diagnostics Result Diagrams: 04/21/20 05:21 04/22/20 05:20 Labs: 04/16/20 10:25 Blood Blood Culture - Final 04/16/20 10:05 Blood Blood Culture - Final 04/16/20 13:45 Urine,Catheterized Urine Culture - Final 04/03/20 12:32 Blood Blood Culture - Final 04/03/20 12:28 Blood Blood Culture - Final 04/04/20 09:11 Sputum - Endotracheal Wash Sputum Culture - Final Klebsiella Pneumoniae 04/04/20 09:11 Sputum - Endotracheal Wash - Final 04/03/20 21:22 Urine,Catheterized Urine Culture - Final Enterococcus Faecalis Laboratory WBC 9.3 X10^3/uL (3.6-10.0) 04/21/20 05:21 RBC 3.11 X10^6/uL (3.5-5.4) L 04/21/20 05:21 Hgb 8.6 g/dL (12.0-16.0) L 04/21/20 05:21 Hct 27.3 % (36.0-47.0) L 04/21/20 05:21 MCV 87.7 fL (80.0-100.0) 04/21/20 05:21 MCH 27.6 pg (27.0-34.0) 04/21/20 05:21 MCHC 31.5 g/dL (33.0-35.0) L 04/21/20 05:21 RDW 17.0 % (11.6-16.5) H 04/21/20 05:21 Plt Count 226 X10^3/uL (150.0-450.0) 04/21/20 05:21 Plt Count Comment Adequate (ADEQUATE) 04/21/20 05:21 MPV 8.5 fL (7.4-11.0) 04/21/20 05:21 Neut % (Auto) 75.4 % (42.0-75.0) H 04/21/20 05:21 Lymph % (Auto) 13.6 % (21.0-51.0) L 04/21/20 05:21 [place] % (Auto) 7.2 % (0.0-13.0) 04/21/20 05:21 Eos % (Auto) 2.5 % (0.9-2.9) 04/21/20 05:21 Baso % (Auto) 1.3 % (0.2-1.0) H 04/21/20 05:21 Neut # (Auto) 7.0 x10^3/uL (2.2-4.8) H 04/21/20 05:21 Lymph # (Auto) 1.3 X10^3/uL (1.3-2.9) 04/21/20 05:21 [place] # (Auto) 0.7 x10^3/uL (0.3-0.8) 04/21/20 05:21 Eos # (Auto) 0.2 x10^3/uL (0.0-0.2) 04/21/20 05:21 Baso # (Auto) 0.1 X10^3/uL (0.0-0.1) 04/21/20 05:21 Absolute Nucleated RBC 0.1 /100WBC 04/21/20 05:21 Total Counted 100 04/20/20 05:25 Neutrophils % (Manual) 57 % (39-76) 04/20/20 05:25 Band Neutrophils % 9 % (0-10) 04/20/20 05:25 Lymphocytes % (Manual) 24 % (13-43) 04/20/20 05:25 Monocytes % (Manual) 4 % (4-9) 04/20/20 05:25 Eosinophils % (Manual) 4 % (0-6) 04/20/20 05:25 Metamyelocytes % 1 04/20/20 05:25 Myelocytes % 1 04/20/20 05:25 Nucleated RBCs 1 04/20/20 05:25 Giant Platelets Noted 04/21/20 05:21 Plt Morphology Comment Abnormal (NORMAL) A 04/21/20 05:21 RBC Morphology Normal (NORMAL) 04/21/20 05:21 PT 13.5 SECONDS (11.8-14.3) 04/04/20 05:55 INR Target Range - 04/04/20 05:55 INR 1.06 (0.8-1.3) 04/04/20 05:55 APTT 37.0 SECONDS (22.9-36.5) H 04/04/20 05:55 PTT Comment - 04/04/20 05:55 Sample Site Rr 04/18/20 18:09 ABG pH 7.260 (7.35-7.45) L 04/18/20 18:09 ABG pCO2 49.0 mmHg (35.0-45.0) H 04/18/20 18:09 ABG pO2 59.0 mmHg (80.0-100.0) L 04/18/20 18:09 ABG HCO3 22.0 mmol/L (22-26) 04/18/20 18:09 ABG O2 Saturation 86.0 % (90-100) L 04/18/20 18:09 ABG Base Excess -5.3 mmol/L (-2.0-2.0) L 04/18/20 18:09 Christos Test Pos 04/18/20 18:09 A-a Gradient 136.0 mmHg 04/18/20 18:09 FiO2 36.0 04/18/20 18:09 Blood Gas Comments Mayi well cb 04/18/20 18:09 Sodium 140 mmol/L (136-145) 04/21/20 05:24 Corrected Sodium 140 mmol/L (136-145) 04/21/20 05:24 Potassium 5.8 mmol/L (3.5-5.1) H 04/21/20 14:20 Chloride 110 mmol/L (98-107) H 04/21/20 05:24 Carbon Dioxide 22.0 mmol/L (21-32) 04/21/20 05:24 BUN 47 mg/dL (7-18) H 04/21/20 05:24 Creatinine 2.72 mg/dL (0.55-1.02) H 04/21/20 05:24 Est GFR (MDRD) Af Amer 22 (>60) L 04/21/20 05:24 Est GFR (MDRD) Non-Af 19 (>60) L 04/21/20 05:24 Glucose 115 mg/dL (65-99) H 04/21/20 05:24 POC Glucose (mg/dL) 104 mg/dL (65-99) H 04/21/20 11:44 Lactic Acid 0.6 mmol/L (0.4-2.0) 04/16/20 10:05 Calcium 9.0 mg/dL (8.5-10.1) 04/21/20 05:24 Corrected Calcium 10.2 mg/dL (8.5-10.1) H 04/16/20 05:15 Magnesium 2.0 mg/dL (1.7-2.9) 04/21/20 14:20 Total Bilirubin 0.20 mg/dL (0.2-1.0) 04/16/20 05:15 AST 21 Units/L (15-37) 04/16/20 05:15 ALT 10 Units/L (12-78) L 04/16/20 05:15 Alkaline Phosphatase 44 Units/L (46-116) L 04/16/20 05:15 Ammonia 15 umol/L (11-32) 04/16/20 09:04 Creatine Kinase 84 Units/L (26-192) 04/04/20 05:55 CK-MB (CK-2) 4.6 ng/mL (0-4.0) H* 04/04/20 05:55 CK/CKMB % Calc 5.5 % (<4) 04/04/20 05:55 Troponin I 0.34 ng/mL (0-1.5) 04/04/20 05:55 B-Natriuretic Peptide 162 pg/mL (0-79) H 04/10/20 05:41 Total Protein 6.1 g/dL (6.4-8.2) L 04/16/20 05:15 Albumin 2.3 g/dL (3.4-5.0) L 04/16/20 05:15 Globulin 3.8 g/dL (2.5-4.5) 04/16/20 05:15 Albumin/Globulin Ratio 0.6 Ratio (1.1-2.1) L 04/16/20 05:15 Specimen Type Catherized urine 04/16/20 13:45 Urine Color Yellow (YELLOW) 04/16/20 13:45 Urine Appearance Cloudy (CLEAR) 04/16/20 13:45 Urine pH 5.0 (5.0 - 8.0) 04/16/20 13:45 Ur Specific [place] 1.020 (1.000-1.030) 04/16/20 13:45 Urine Protein 4+ (NEGATIVE) 04/16/20 13:45 Urine Glucose (UA) Negative (NEGATIVE) 04/16/20 13:45 Urine Ketones 1+ (NEGATIVE) 04/16/20 13:45 Urine Occult Blood 2+ (NEGATIVE) 04/16/20 13:45 Urine Nitrite Negative (NEGATIVE) 04/16/20 13:45 Urine Bilirubin Negative (NEGATIVE) 04/16/20 13:45 Urine Urobilinogen Normal (NORMAL) 04/16/20 13:45 Ur Leukocyte Esterase 3+ (NEGATIVE) 04/16/20 13:45 Urine RBC 3-5 /HPF (0-3) A 04/16/20 13:45 Urine WBC 30-50 /HPF (0-5) A 04/16/20 13:45 Ur Squamous Epith Cells Rare /HPF (NEGATIVE) 04/16/20 13:45 Ur Renal Epithelial Cell Rare /HPF (NEGATIVE) 04/16/20 13:45 Amorphous Sediment 1+ /HPF (NEGATIVE) 04/16/20 13:45 Urine Bacteria Trace /HPF (NEGATIVE) 04/16/20 13:45 Coarse Granular Casts Few /HPF (NEGATIVE) 04/03/20 21:22 Urine Yeast Many /HPF (NEGATIVE) 04/16/20 13:45 Ur Culture Indicated? Yes/culture set up 04/16/20 13:45 Urine Creatinine 125.85 mg/dL (29-226) 04/11/20 14:01 Miscellaneous Test Resp panel 04/10/20 17:25 Blood Type O POSITIVE 04/06/20 13:00 Antibody Screen Negative 04/06/20 13:00 Crossmatch See Detail 04/06/20 13:00 Plan (1) Delirium: Status: Acute (2) Generalized weakness: Status: Acute (3) Acute on chronic renal failure: Status: Acute Qualifiers: Acute renal failure type: unspecified Chronic kidney disease stage: unspecified stage Qualified Code(s): N17.9 - Acute kidney failure, unspecified; N18.9 - Chronic kidney disease, unspecified (4) Acute on chronic respiratory failure with hypoxia and hypercapnia: Status: Acute (5) AMS (altered mental status): Status: Acute Qualifiers: Altered mental status type: transient alteration of awareness Qualified Code(s): R40.4 - Transient alteration of awareness (6) Hyperkalemia: Status: Acute (7) Obesity hypoventilation syndrome: Status: Acute (8) Uncontrolled type 2 diabetes mellitus: Status: Acute Qualifiers: Glycemic state: with hyperglycemia Qualified Code(s): E11.65 - Type 2 diabetes mellitus with hyperglycemia (9) Klebsiella pneumonia: Status: Acute Qualifiers: Laterality: bilateral Lung location: unspecified part of lung Qualified Code(s): J15.0 - Pneumonia due to Klebsiella pneumoniae (10) Enterococcus UTI: Status: Acute (11) COPD (chronic obstructive pulmonary disease): Status: Acute Qualifiers: COPD type: unspecified COPD Qualified Code(s): J44.9 - Chronic obstructive pulmonary disease, unspecified (12) Hypertension associated with stage 2 chronic kidney disease due to type 2 diabetes mellitus: Status: Acute
[2020-04-21] MEDS: SNACK - Diabetic Appropriate PO SCH ×2 (21:21→21:22)
[2020-04-21] MEDS: ZOCOR TAB 40 MG PO SCH (21:25)
[2020-04-22] MEDS: DUONEB 0.5 MG/3 MG (3 mL) NEB SCH ×4 (00:22→18:00)
[2020-04-22] MEDS: AMPICILLIN VIAL 1 GRAM 1 G in NS 100 ML IV + SPIKE MINIBAG* 100 ML IV SCH ×3 (01:14→16:45)
[2020-04-22] MEDS: ZOFRAN INJ 4 MG VIAL IVP PRN (02:28)
[2020-04-22] MEDS: TYLENOL 325 MG TAB PO PRN (02:41)
[2020-04-22 06:09] LABS: CALCIUM 8.8 mg/dL (8.5-10.1); CREATININE 2.73 mg/dL (0.55-1.02)
[2020-04-22] MEDS: ABILIFY PO SCH (08:24)
[2020-04-22] MEDS: APRESOLINE TAB 25 MG PO SCH (08:25)
[2020-04-22] MEDS: COREG TAB 25 MG PO SCH (08:26)
[2020-04-22] MEDS: NYSTATIN POWDER TOP SCH ×2 (08:28→20:21)
[2020-04-22] MEDS: SINEMET (PLAIN) 10/100 MG PO SCH ×2 (08:29→20:22)
[2020-04-22] MEDS: PEPCID TAB 20 MG PO SCH (08:29)
[2020-04-22] MEDS: SYNTHROID 125 mcg TAB PO SCH (08:30)
[2020-04-22] MEDS ORDERED: DEXTROSE 10% 0 ML IV ONE (08:36)
[2020-04-22] MEDS: BACTROBAN TOPICAL OINT TOP SCH ×3 (08:38→21:55)
[2020-04-22] MEDS: TEMOVATE CREAM EXT SCH ×2 (08:42→20:23)
[2020-04-22] MEDS: HEPARIN SODIUM INJ 5000 UNITS SC SCH ×2 (08:44→20:20)
[2020-04-22] MEDS ORDERED: HUMULIN R SUBCUT NR ×2 (09:00)
[2020-04-22] MEDS ORDERED: DEXTROSE 10% SUBCUT NR ×2 (09:00)
[2020-04-22] MEDS: EUCERIN TOP SCH ×2 (09:15→20:20)
[2020-04-22] MEDS: PROVENTIL NEB TX 0.083% 2.5MG/ 3ML NEB NR ×2 (10:00→11:30)
[2020-04-22] MEDS ORDERED: NS 1000 ML 1,000 ML IV ONE (12:08)
--- NOTE | 2020-04-22 14:46 | PCM.PROG ---
Progress Note Progress Note for Day of Date of Exam: 04/22/20 Subjective Subjective: Patient seen at bedside, no overnight events. Patient's repeat K yesterday was 5.8 and it is the same this morning. Patient did get 30 mg Kayexalate yesterday afternoon. She has been having output from her colostomy bag. Lasix was held due to worsening renal function. Labs: K:5.8 Hgb 8.6 Cr: 2.73 Plan: discussed with pharmacy, will give 20 units IV insulin with D10 saline infused over 60 mins. Also add high dose albuterol nebs. Repeat BMP this afternoon. Continue ampicillin. Will ask CM to check with patient's son about other options for discharge including home with home health. Past Medical Family Social History Past Med/Fam/Surg Hx: No changes since H&P Allergies: Allergies oxycodone Allergy (Verified 04/03/20 12:08) Review of Systems ROS: Changes notes (describe) Vital Signs and I&O's Vital Signs: Temperature 97.4 F Pulse Rate [Right Brachial] 81 Pulse Rate [Left Brachial] 68 Pulse Rate 78 Respiratory Rate 20 Blood Pressure [Right Arm] 69/37 Blood Pressure [Left Arm] 125/59 Blood Pressure [Right Arm] 101/52 Blood Pressure 107/49 O2 Sat by Pulse Oximetry 100 Intake and Output: Intake & Output 04/19/20 04/20/20 04/21/20 04/22/20 23:59 23:59 23:59 23:59 Intake Total 1310 / 1310 1068 / 1068 2007 310 / 310 Output Total 520 / 520 525 / 525 825 / 825 325 / 325 Balance 790 / 790 543 / 543 1183 / 1183 -15 / -15 Physical Exam Oriented: Other (drowsy ) Eyes: Normal Nose: Normal Throat: Normal Respiratory: Generalized and Diminished Cardiovascular: Normal and Edema (LE edema present, similar to prior exam ) Auscultation: Bowel Sounds: Normal and Other Tenderness: Normal and Other (colostomy noted, mild surounding erythema around the stoma. Bag changed today ) Skin: Other (swelling of both upper ext improved ) Musculoskeletal: Back:Thoracic, Back:Lumbar and Back:Paraspinous Psychiatric: Normal Mood Description: Calm Affect: Normal Speech Pattern: Clear and Appropriate Laboratory and Diagnostics Result Diagrams: 04/21/20 05:21 04/22/20 14:20 Labs: 04/16/20 10:25 Blood Blood Culture - Final 04/16/20 10:05 Blood Blood Culture - Final 04/16/20 13:45 Urine,Catheterized Urine Culture - Final 04/03/20 12:32 Blood Blood Culture - Final 04/03/20 12:28 Blood Blood Culture - Final 04/04/20 09:11 Sputum - Endotracheal Wash Sputum Culture - Final Klebsiella Pneumoniae 04/04/20 09:11 Sputum - Endotracheal Wash - Final 04/03/20 21:22 Urine,Catheterized Urine Culture - Final Enterococcus Faecalis Laboratory WBC 9.3 X10^3/uL (3.6-10.0) 04/21/20 05:21 RBC 3.11 X10^6/uL (3.5-5.4) L 04/21/20 05:21 Hgb 8.6 g/dL (12.0-16.0) L 04/21/20 05:21 Hct 27.3 % (36.0-47.0) L 04/21/20 05:21 MCV 87.7 fL (80.0-100.0) 04/21/20 05:21 MCH 27.6 pg (27.0-34.0) 04/21/20 05:21 MCHC 31.5 g/dL (33.0-35.0) L 04/21/20 05:21 RDW 17.0 % (11.6-16.5) H 04/21/20 05:21 Plt Count 226 X10^3/uL (150.0-450.0) 04/21/20 05:21 Plt Count Comment Adequate (ADEQUATE) 04/21/20 05:21 MPV 8.5 fL (7.4-11.0) 04/21/20 05:21 Neut % (Auto) 75.4 % (42.0-75.0) H 04/21/20 05:21 Lymph % (Auto) 13.6 % (21.0-51.0) L 04/21/20 05:21 [place] % (Auto) 7.2 % (0.0-13.0) 04/21/20 05:21 Eos % (Auto) 2.5 % (0.9-2.9) 04/21/20 05:21 Baso % (Auto) 1.3 % (0.2-1.0) H 04/21/20 05:21 Neut # (Auto) 7.0 x10^3/uL (2.2-4.8) H 04/21/20 05:21 Lymph # (Auto) 1.3 X10^3/uL (1.3-2.9) 04/21/20 05:21 [place] # (Auto) 0.7 x10^3/uL (0.3-0.8) 04/21/20 05:21 Eos # (Auto) 0.2 x10^3/uL (0.0-0.2) 04/21/20 05:21 Baso # (Auto) 0.1 X10^3/uL (0.0-0.1) 04/21/20 05:21 Absolute Nucleated RBC 0.1 /100WBC 04/21/20 05:21 Total Counted 100 04/20/20 05:25 Neutrophils % (Manual) 57 % (39-76) 04/20/20 05:25 Band Neutrophils % 9 % (0-10) 04/20/20 05:25 Lymphocytes % (Manual) 24 % (13-43) 04/20/20 05:25 Monocytes % (Manual) 4 % (4-9) 04/20/20 05:25 Eosinophils % (Manual) 4 % (0-6) 04/20/20 05:25 Metamyelocytes % 1 04/20/20 05:25 Myelocytes % 1 04/20/20 05:25 Nucleated RBCs 1 04/20/20 05:25 Giant Platelets Noted 04/21/20 05:21 Plt Morphology Comment Abnormal (NORMAL) A 04/21/20 05:21 RBC Morphology Normal (NORMAL) 04/21/20 05:21 PT 13.5 SECONDS (11.8-14.3) 04/04/20 05:55 INR Target Range - 04/04/20 05:55 INR 1.06 (0.8-1.3) 04/04/20 05:55 APTT 37.0 SECONDS (22.9-36.5) H 04/04/20 05:55 PTT Comment - 04/04/20 05:55 Sample Site Rr 04/18/20 18:09 ABG pH 7.260 (7.35-7.45) L 04/18/20 18:09 ABG pCO2 49.0 mmHg (35.0-45.0) H 04/18/20 18:09 ABG pO2 59.0 mmHg (80.0-100.0) L 04/18/20 18:09 ABG HCO3 22.0 mmol/L (22-26) 04/18/20 18:09 ABG O2 Saturation 86.0 % (90-100) L 04/18/20 18:09 ABG Base Excess -5.3 mmol/L (-2.0-2.0) L 04/18/20 18:09 Christos Test Pos 04/18/20 18:09 A-a Gradient 136.0 mmHg 04/18/20 18:09 FiO2 36.0 04/18/20 18:09 Blood Gas Comments Mayi well cb 04/18/20 18:09 Sodium 142 mmol/L (136-145) 04/22/20 05:20 Corrected Sodium 143 mmol/L (136-145) 04/22/20 05:20 Potassium 5.8 mmol/L (3.5-5.1) H 04/22/20 05:20 Chloride 112 mmol/L (98-107) H 04/22/20 05:20 Carbon Dioxide 23.0 mmol/L (21-32) 04/22/20 05:20 BUN 48 mg/dL (7-18) H 04/22/20 05:20 Creatinine 2.73 mg/dL (0.55-1.02) H 04/22/20 05:20 Est GFR (MDRD) Af Amer 22 (>60) L 04/22/20 05:20 Est GFR (MDRD) Non-Af 19 (>60) L 04/22/20 05:20 Glucose 134 mg/dL (65-99) H 04/22/20 05:20 POC Glucose (mg/dL) 114 mg/dL (65-99) H 04/22/20 12:53 Lactic Acid 0.6 mmol/L (0.4-2.0) 04/16/20 10:05 Calcium 8.8 mg/dL (8.5-10.1) 04/22/20 05:20 Corrected Calcium 10.2 mg/dL (8.5-10.1) H 04/16/20 05:15 Magnesium 2.0 mg/dL (1.7-2.9) 04/21/20 14:20 Total Bilirubin 0.20 mg/dL (0.2-1.0) 04/16/20 05:15 AST 21 Units/L (15-37) 04/16/20 05:15 ALT 10 Units/L (12-78) L 04/16/20 05:15 Alkaline Phosphatase 44 Units/L (46-116) L 04/16/20 05:15 Ammonia 15 umol/L (11-32) 04/16/20 09:04 Creatine Kinase 84 Units/L (26-192) 04/04/20 05:55 CK-MB (CK-2) 4.6 ng/mL (0-4.0) H* 04/04/20 05:55 CK/CKMB % Calc 5.5 % (<4) 04/04/20 05:55 Troponin I 0.34 ng/mL (0-1.5) 04/04/20 05:55 B-Natriuretic Peptide 162 pg/mL (0-79) H 04/10/20 05:41 Total Protein 6.1 g/dL (6.4-8.2) L 04/16/20 05:15 Albumin 2.4 g/dL (3.4-5.0) L 04/22/20 05:20 Globulin 3.8 g/dL (2.5-4.5) 04/16/20 05:15 Albumin/Globulin Ratio 0.6 Ratio (1.1-2.1) L 04/16/20 05:15 Specimen Type Catherized urine 04/16/20 13:45 Urine Color Yellow (YELLOW) 04/16/20 13:45 Urine Appearance Cloudy (CLEAR) 04/16/20 13:45 Urine pH 5.0 (5.0 - 8.0) 04/16/20 13:45 Ur Specific [place] 1.020 (1.000-1.030) 04/16/20 13:45 Urine Protein 4+ (NEGATIVE) 04/16/20 13:45 Urine Glucose (UA) Negative (NEGATIVE) 04/16/20 13:45 Urine Ketones 1+ (NEGATIVE) 04/16/20 13:45 Urine Occult Blood 2+ (NEGATIVE) 04/16/20 13:45 Urine Nitrite Negative (NEGATIVE) 04/16/20 13:45 Urine Bilirubin Negative (NEGATIVE) 04/16/20 13:45 Urine Urobilinogen Normal (NORMAL) 04/16/20 13:45 Ur Leukocyte Esterase 3+ (NEGATIVE) 04/16/20 13:45 Urine RBC 3-5 /HPF (0-3) A 04/16/20 13:45 Urine WBC 30-50 /HPF (0-5) A 04/16/20 13:45 Ur Squamous Epith Cells Rare /HPF (NEGATIVE) 04/16/20 13:45 Ur Renal Epithelial Cell Rare /HPF (NEGATIVE) 04/16/20 13:45 Amorphous Sediment 1+ /HPF (NEGATIVE) 04/16/20 13:45 Urine Bacteria Trace /HPF (NEGATIVE) 04/16/20 13:45 Coarse Granular Casts Few /HPF (NEGATIVE) 04/03/20 21:22 Urine Yeast Many /HPF (NEGATIVE) 04/16/20 13:45 Ur Culture Indicated? Yes/culture set up 04/16/20 13:45 Urine Creatinine 125.85 mg/dL (29-226) 04/11/20 14:01 Miscellaneous Test Resp panel 04/10/20 17:25 Blood Type O POSITIVE 04/06/20 13:00 Antibody Screen Negative 04/06/20 13:00 Crossmatch See Detail 04/06/20 13:00 Plan (1) Hyperkalemia: Status: Acute (2) Delirium: Status: Acute (3) Generalized weakness: Status: Acute (4) Acute on chronic renal failure: Status: Acute Qualifiers: Acute renal failure type: unspecified Chronic kidney disease stage: unspecified stage Qualified Code(s): N17.9 - Acute kidney failure, unspecified; N18.9 - Chronic kidney disease, unspecified (5) Acute on chronic respiratory failure with hypoxia and hypercapnia: Status: Acute (6) AMS (altered mental status): Status: Acute Qualifiers: Altered mental status type: transient alteration of awareness Qualified Code(s): R40.4 - Transient alteration of awareness (7) Obesity hypoventilation syndrome: Status: Acute (8) Uncontrolled type 2 diabetes mellitus: Status: Acute Qualifiers: Glycemic state: with hyperglycemia Qualified Code(s): E11.65 - Type 2 diabetes mellitus with hyperglycemia (9) Klebsiella pneumonia: Status: Acute Qualifiers: Laterality: bilateral Lung location: unspecified part of lung Qualifi ed Code(s): J15.0 - Pneumonia due to Klebsiella pneumoniae (10) Enterococcus UTI: Status: Acute (11) COPD (chronic obstructive pulmonary disease): Status: Acute Qualifiers: COPD type: unspecified COPD Qualified Code(s): J44.9 - Chronic obstructive pulmonary disease, unspecified (12) Hypertension associated with stage 2 chronic kidney disease due to type 2 diabetes mellitus: Status: Acute
[2020-04-22 14:51] LABS: BLOOD UREA NITROGEN 47 mg/dL (7-18); CALCIUM 8.5 mg/dL (8.5-10.1); CHLORIDE 111 mmol/L (98-107); CREATININE 2.71 mg/dL (0.55-1.02); SODIUM 140 mmol/L (136-145); eGFR NON BLACK RACES 19 (>60)
[2020-04-22] MEDS: NS 1000 ML 1,000 ML IV SCH (15:30)
[2020-04-22] MEDS: NORCO 7.5/325 MG TAB PO PRN (15:32)
[2020-04-22] MEDS: SNACK - Diabetic Appropriate PO SCH (20:14)
[2020-04-22] MEDS: ZOCOR TAB 40 MG PO SCH (20:23)
[2020-04-23] MEDS: DUONEB 0.5 MG/3 MG (3 mL) NEB SCH ×4 (00:40→18:27)
[2020-04-23] MEDS: AMPICILLIN VIAL 1 GRAM 1 G in NS 100 ML IV + SPIKE MINIBAG* 100 ML IV SCH ×3 (00:50→18:18)
[2020-04-23] MEDS: NORCO 7.5/325 MG TAB PO PRN ×4 (04:10→21:40)
[2020-04-23] MEDS: ZOFRAN INJ 4 MG VIAL IVP PRN (04:10)
[2020-04-23] MEDS: NS 1000 ML 1,000 ML IV SCH ×2 (04:19→06:00)
[2020-04-23] MEDS: BACTROBAN TOPICAL OINT TOP SCH ×3 (06:16→21:10)
[2020-04-23 06:19] LABS: ALBUMIN 2.2 g/dL (3.4-5.0); BLOOD UREA NITROGEN 48 mg/dL (7-18); CALCIUM 8.7 mg/dL (8.5-10.1); CARBON DIOXIDE 21.2 mmol/L (21-32); CHLORIDE 111 mmol/L (98-107); SODIUM 140 mmol/L (136-145); eGFR NON BLACK RACES 19 (>60)
[2020-04-23] MEDS: ABILIFY PO SCH (09:09)
[2020-04-23] MEDS: EUCERIN TOP SCH ×2 (09:09→21:10)
[2020-04-23] MEDS: NYSTATIN POWDER TOP SCH ×2 (09:10→21:10)
[2020-04-23] MEDS: HEPARIN SODIUM INJ 5000 UNITS SC SCH ×2 (09:10→21:10)
[2020-04-23] MEDS: SINEMET (PLAIN) 10/100 MG PO SCH ×2 (09:11→21:10)
[2020-04-23] MEDS: TEMOVATE CREAM EXT SCH ×2 (09:11→21:10)
[2020-04-23] MEDS: SYNTHROID 125 mcg TAB PO SCH (09:11)
--- NOTE | 2020-04-23 15:59 | PCM.PROG ---
Progress Note Progress Note for Day of Date of Exam: 04/23/20 Subjective Subjective: Patient seen at bedside, no overnight events. She is awake and alert this morning. Patient's son Herberth also present at bedside to discuss patient's treatment and discharge plan. Yesterday patient's BP did drop to SBP in 70s. She was given NS bolus and also started on IVF, anti-hypertensives were held. Labs: K:5.8 Hgb 8.6 Cr: 2.70 Discussed in detail regarding patient's current admission and worsening of chronic medical problems. Patient will be requiring 24hr care and assistance with activities of daily living. Patient has been bed bound since admission. Patient has not been able to work much with PT/OT. 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 Patient and her son verbalized understanding and are in agreement. CM to look into options for LTC placement. Plan: will continue current treatment, DC IVF. BP has improved, will continue to hold anti-hypertensives, Continue PT/OT as tolerated. Time spent over 30 mins in clinical assessment, family discussion, reviewing labs/imaging, decision making and documentation. Past Medical Family Social History Past Med/Fam/Surg Hx: No changes since H&P Allergies: Allergies oxycodone Allergy (Verified 04/03/20 12:08) Review of Systems ROS: Changes notes (describe) Vital Signs and I&O's Vital Signs: Temperature 97.6 F Pulse Rate [Right Brachial] 82 Pulse Rate [Left Brachial] 79 Pulse Rate 80 Respiratory Rate 18 Blood Pressure [Right Arm] 105/58 Blood Pressure [Left Arm] 167/67 Blood Pressure [Right Arm] 101/52 Blood Pressure 107/49 O2 Sat by Pulse Oximetry 94 Intake and Output: Intake & Output 04/20/20 04/21/20 04/22/20 04/23/20 23:59 23:59 23:59 23:59 Intake Total 1068 / 1068 2007 3290 / 3290 850 / 850 Output Total 525 / 525 825 / 825 575 / 575 125 / 125 Balance 543 / 543 1183 / 1183 2715 / 2715 725 / 725 Physical Exam Oriented: Normal Eyes: Normal Nose: Normal Throat: Normal Respiratory: Generalized and Diminished Cardiovascular: Normal and Edema (LE edema present, similar to prior exam ) Auscultation: Bowel Sounds: Normal and Other Tenderness: Normal and Other (colostomy noted, mild surounding erythema around the stoma. Bag changed today ) Skin: Other (swelling of both upper ext improved ) Musculoskeletal: Back:Thoracic, Back:Lumbar and Back:Paraspinous Psychiatric: Normal Mood Description: Calm Affect: Normal Speech Pattern: Clear and Appropriate Laboratory and Diagnostics Result Diagrams: 04/21/20 05:21 04/23/20 05:10 Labs: 04/16/20 10:25 Blood Blood Culture - Final 04/16/20 10:05 Blood Blood Culture - Final 04/16/20 13:45 Urine,Catheterized Urine Culture - Final 04/03/20 12:32 Blood Blood Culture - Final 04/03/20 12:28 Blood Blood Culture - Final 04/04/20 09:11 Sputum - Endotracheal Wash Sputum Culture - Final Klebsiella Pneumoniae 04/04/20 09:11 Sputum - Endotracheal Wash - Final 04/03/20 21:22 Urine,Catheterized Urine Culture - Final Enterococcus Faecalis Laboratory WBC 9.3 X10^3/uL (3.6-10.0) 04/21/20 05:21 RBC 3.11 X10^6/uL (3.5-5.4) L 04/21/20 05:21 Hgb 8.6 g/dL (12.0-16.0) L 04/21/20 05:21 Hct 27.3 % (36.0-47.0) L 04/21/20 05:21 MCV 87.7 fL (80.0-100.0) 04/21/20 05:21 MCH 27.6 pg (27.0-34.0) 04/21/20 05:21 MCHC 31.5 g/dL (33.0-35.0) L 04/21/20 05:21 RDW 17.0 % (11.6-16.5) H 04/21/20 05:21 Plt Count 226 X10^3/uL (150.0-450.0) 04/21/20 05:21 Plt Count Comment Adequate (ADEQUATE) 04/21/20 05:21 MPV 8.5 fL (7.4-11.0) 04/21/20 05:21 Neut % (Auto) 75.4 % (42.0-75.0) H 04/21/20 05:21 Lymph % (Auto) 13.6 % (21.0-51.0) L 04/21/20 05:21 [place] % (Auto) 7.2 % (0.0-13.0) 04/21/20 05:21 Eos % (Auto) 2.5 % (0.9-2.9) 04/21/20 05:21 Baso % (Auto) 1.3 % (0.2-1.0) H 04/21/20 05:21 Neut # (Auto) 7.0 x10^3/uL (2.2-4.8) H 04/21/20 05:21 Lymph # (Auto) 1.3 X10^3/uL (1.3-2.9) 04/21/20 05:21 [place] # (Auto) 0.7 x10^3/uL (0.3-0.8) 04/21/20 05:21 Eos # (Auto) 0.2 x10^3/uL (0.0-0.2) 04/21/20 05:21 Baso # (Auto) 0.1 X10^3/uL (0.0-0.1) 04/21/20 05:21 Absolute Nucleated RBC 0.1 /100WBC 04/21/20 05:21 Total Counted 100 04/20/20 05:25 Neutrophils % (Manual) 57 % (39-76) 04/20/20 05:25 Band Neutrophils % 9 % (0-10) 04/20/20 05:25 Lymphocytes % (Manual) 24 % (13-43) 04/20/20 05:25 Monocytes % (Manual) 4 % (4-9) 04/20/20 05:25 Eosinophils % (Manual) 4 % (0-6) 04/20/20 05:25 Metamyelocytes % 1 04/20/20 05:25 Myelocytes % 1 04/20/20 05:25 Nucleated RBCs 1 04/20/20 05:25 Giant Platelets Noted 04/21/20 05:21 Plt Morphology Comment Abnormal (NORMAL) A 04/21/20 05:21 RBC Morphology Normal (NORMAL) 04/21/20 05:21 PT 13.5 SECONDS (11.8-14.3) 04/04/20 05:55 INR Target Range - 04/04/20 05:55 INR 1.06 (0.8-1.3) 04/04/20 05:55 APTT 37.0 SECONDS (22.9-36.5) H 04/04/20 05:55 PTT Comment - 04/04/20 05:55 Sample Site Rr 04/18/20 18:09 ABG pH 7.260 (7.35-7.45) L 04/18/20 18:09 ABG pCO2 49.0 mmHg (35.0-45.0) H 04/18/20 18:09 ABG pO2 59.0 mmHg (80.0-100.0) L 04/18/20 18:09 ABG HCO3 22.0 mmol/L (22-26) 04/18/20 18:09 ABG O2 Saturation 86.0 % (90-100) L 04/18/20 18:09 ABG Base Excess -5.3 mmol/L (-2.0-2.0) L 04/18/20 18:09 Christos Test Pos 04/18/20 18:09 A-a Gradient 136.0 mmHg 04/18/20 18:09 FiO2 36.0 04/18/20 18:09 Blood Gas Comments Mayi well cb 04/18/20 18:09 Sodium 140 mmol/L (136-145) 04/23/20 05:10 Corrected Sodium TNP 04/23/20 05:10 Potassium 5.8 mmol/L (3.5-5.1) H 04/23/20 05:10 Chloride 111 mmol/L (98-107) H 04/23/20 05:10 Carbon Dioxide 21.2 mmol/L (21-32) 04/23/20 05:10 BUN 48 mg/dL (7-18) H 04/23/20 05:10 Creatinine 2.70 mg/dL (0.55-1.02) H 04/23/20 05:10 Est GFR (MDRD) Af Amer 23 (>60) L 04/23/20 05:10 Est GFR (MDRD) Non-Af 19 (>60) L 04/23/20 05:10 Glucose 97 mg/dL (65-99) 04/23/20 05:10 POC Glucose (mg/dL) 95 mg/dL (65-99) 04/23/20 11:11 Lactic Acid 0.6 mmol/L (0.4-2.0) 04/16/20 10:05 Calcium 8.7 mg/dL (8.5-10.1) 04/23/20 05:10 Corrected Calcium 10.2 mg/dL (8.5-10.1) H 04/16/20 05:15 Magnesium 2.0 mg/dL (1.7-2.9) 04/21/20 14:20 Total Bilirubin 0.20 mg/dL (0.2-1.0) 04/16/20 05:15 AST 21 Units/L (15-37) 04/16/20 05:15 ALT 10 Units/L (12-78) L 04/16/20 05:15 Alkaline Phosphatase 44 Units/L (46-116) L 04/16/20 05:15 Ammonia 15 umol/L (11-32) 04/16/20 09:04 Creatine Kinase 84 Units/L (26-192) 04/04/20 05:55 CK-MB (CK-2) 4.6 ng/mL (0-4.0) H* 04/04/20 05:55 CK/CKMB % Calc 5.5 % (<4) 04/04/20 05:55 Troponin I 0.34 ng/mL (0-1.5) 04/04/20 05:55 B-Natriuretic Peptide 162 pg/mL (0-79) H 04/10/20 05:41 Total Protein 6.1 g/dL (6.4-8.2) L 04/16/20 05:15 Albumin 2.2 g/dL (3.4-5.0) L 04/23/20 05:10 Globulin 3.8 g/dL (2.5-4.5) 04/16/20 05:15 Albumin/Globulin Ratio 0.6 Ratio (1.1-2.1) L 04/16/20 05:15 Specimen Type Catherized urine 04/16/20 13:45 Urine Color Yellow (YELLOW) 04/16/20 13:45 Urine Appearance Cloudy (CLEAR) 04/16/20 13:45 Urine pH 5.0 (5.0 - 8.0) 04/16/20 13:45 Ur Specific [place] 1.020 (1.000-1.030) 04/16/20 13:45 Urine Protein 4+ (NEGATIVE) 04/16/20 13:45 Urine Glucose (UA) Negative (NEGATIVE) 04/16/20 13:45 Urine Ketones 1+ (NEGATIVE) 04/16/20 13:45 Urine Occult Blood 2+ (NEGATIVE) 04/16/20 13:45 Urine Nitrite Negative (NEGATIVE) 04/16/20 13:45 Urine Bilirubin Negative (NEGATIVE) 04/16/20 13:45 Urine Urobilinogen Normal (NORMAL) 04/16/20 13:45 Ur Leukocyte Esterase 3+ (NEGATIVE) 04/16/20 13:45 Urine RBC 3-5 /HPF (0-3) A 04/16/20 13:45 Urine WBC 30-50 /HPF (0-5) A 04/16/20 13:45 Ur Squamous Epith Cells Rare /HPF (NEGATIVE) 04/16/20 13:45 Ur Renal Epithelial Cell Rare /HPF (NEGATIVE) 04/16/20 13:45 Amorphous Sediment 1+ /HPF (NEGATIVE) 04/16/20 13:45 Urine Bacteria Trace /HPF (NEGATIVE) 04/16/20 13:45 Coarse Granular Casts Few /HPF (NEGATIVE) 04/03/20 21:22 Urine Yeast Many /HPF (NEGATIVE) 04/16/20 13:45 Ur Culture Indicated? Yes/culture set up 04/16/20 13:45 Urine Creatinine 125.85 mg/dL (29-226) 04/11/20 14:01 Miscellaneous Test Resp panel 04/10/20 17:25 Blood Type O POSITIVE 04/06/20 13:00 Antibody Screen Negative 04/06/20 13:00 Crossmatch See Detail 04/06/20 13:00 Plan (1) Hyperkalemia: Status: Acute (2) Delirium: Status: Acute (3) Generalized weakness: Status: Acute (4) Acute on chronic renal failure: Status: Acute Qualifiers: Acute renal failure type: unspecified Chronic kidney disease stage: unspecified stage Qualified Code(s): N17.9 - Acute kidney failure, unspecified; N18.9 - Chronic kidney disease, unspecified (5) Acute on chronic respiratory failure with hypoxia and hypercapnia: Status: Acute (6) AMS (altered mental status): Status: Acute Qualifiers: Altered mental status type: transient alteration of awareness Qualified Code(s): R40.4 - Transient alteration of awareness (7) Obesity hypoventilation syndrome: Status: Acute (8) Uncontrolled type 2 diabetes mellitus: Status: Acute Qualifiers: Glycemic state: with hyperglycemia Qualified Code(s): E11.65 - Type 2 diabetes mellitus with hyperglycemia (9) Klebsiella pneumonia: Status: Acute Qualifiers: Laterality: bilateral Lung location: unspecified part of lung Qualified Code(s): J15.0 - Pneumonia due to Klebsiella pneumoniae (10) Enterococcus UTI: Status: Acute (11) COPD (chronic obstructive pulmonary disease): Status: Acute Qualifiers: COPD type: unspecified COPD Qualified Code(s): J44.9 - Chronic obstructive pulmonary disease, unspecified (12) Hypertension associated with stage 2 chronic kidney disease due to type 2 diabetes mellitus: Status: Acute
[2020-04-23] MEDS: ZOCOR TAB 40 MG PO SCH (21:10)
[2020-04-23] MEDS: SNACK - Diabetic Appropriate PO SCH (22:00)
[2020-04-24] MEDS: DUONEB 0.5 MG/3 MG (3 mL) NEB SCH ×3 (00:55→11:37)
[2020-04-24] MEDS: AMPICILLIN VIAL 1 GRAM 1 G in NS 100 ML IV + SPIKE MINIBAG* 100 ML IV SCH (01:00)
[2020-04-24] MEDS: BACTROBAN TOPICAL OINT TOP SCH ×2 (05:38→13:41)
[2020-04-24 06:26] LABS: BASOPHILS # (AUTO) 0.1 X10^3/uL (0.0-0.1); EOSINOPHILS # (AUTO) 0.5 x10^3/uL (0.0-0.2); EOSINOPHILS % (AUTO) 8.3 % (0.9-2.9); HEMATOCRIT 27.1 % (36.0-47.0); HEMOGLOBIN 8.5 g/dL (12.0-16.0); LYMPHOCYTES % (AUTO) 17.2 % (21.0-51.0); MEAN CORPUSCULAR HEMOGLOBIN 27.5 pg (27.0-34.0); MEAN CORPUSCULAR HGB CONC 31.2 g/dL (33.0-35.0); MEAN CORPUSCULAR VOLUME 88.2 fL (80.0-100.0); MEAN PLATELET VOLUME 8.4 fL (7.4-11.0); MONOCYTES # (AUTO) 0.4 x10^3/uL (0.3-0.8); MONOCYTES % (AUTO) 6.6 % (0.0-13.0); NEUTROPHILS # (AUTO) 4.1 x10^3/uL (2.2-4.8); NEUTROPHILS % (AUTO) 66.9 % (42.0-75.0); PLATELET COUNT 229 X10^3/uL (150.0-450.0); RED BLOOD COUNT 3.07 X10^6/uL (3.5-5.4); RED CELL DISTRIBUTION WIDTH 16.5 % (11.6-16.5); WHITE BLOOD COUNT 6.1 X10^3/uL (3.6-10.0)
[2020-04-24 06:30] LABS: BLOOD UREA NITROGEN 51 mg/dL (7-18); CALCIUM 9.1 mg/dL (8.5-10.1); CARBON DIOXIDE 20.4 mmol/L (21-32); CHLORIDE 111 mmol/L (98-107); CREATININE 2.73 mg/dL (0.55-1.02); SODIUM 141 mmol/L (136-145); eGFR NON BLACK RACES 19 (>60)
[2020-04-24 07:33] LABS: BAND NEUTROPHILS % 4 % (0-10); PLATELET MORPHOLOGY COMMENT NORMAL (NORMAL)
[2020-04-24] MEDS ORDERED: D50W ABBOJECT SYR IV ONE (08:01)
[2020-04-24] MEDS ORDERED: HumuLIN R IV ONE (08:02)
[2020-04-24] MEDS: NORCO 7.5/325 MG TAB PO PRN ×2 (08:15→14:42)
[2020-04-24] MEDS ORDERED: LASIX IVP ONE (08:56)
[2020-04-24] MEDS ORDERED: MORPHINE SULFATE INJ 2 MG INJ IVP PRN (09:14)
[2020-04-24] MEDS: EUCERIN TOP SCH (09:20)
[2020-04-24] MEDS: ABILIFY PO SCH (09:20)
[2020-04-24] MEDS: NYSTATIN POWDER TOP SCH (09:21)
[2020-04-24] MEDS: HEPARIN SODIUM INJ 5000 UNITS SC SCH (09:21)
[2020-04-24] MEDS: SYNTHROID 125 mcg TAB PO SCH (09:22)
[2020-04-24] MEDS: PEPCID TAB 20 MG PO SCH (09:22)
[2020-04-24] MEDS: SINEMET (PLAIN) 10/100 MG PO SCH (09:22)
[2020-04-24] MEDS: TEMOVATE CREAM EXT SCH (09:23)
[2020-04-24] MEDS: KAYEXALATE SUSP PO SCH ×3 (09:29→14:42)
[2020-04-24 13:57] VITALS: BP 116/57
--- NOTE | 2020-04-24 14:10 | W.DIS.FURT ---
Summary of Discharge Admission Diagnosis Patient Problems (Updated 04/19/20 @ 05:28 by SHAHBAZ COHEN) Respiratory distress (Acute) R06.03 Brain TIA (Acute) G45.9 Delirium (Acute) R41.0 Enterococcus UTI (Acute) N39.0, B95.2 Klebsiella pneumonia (Acute) J15.0 Generalized weakness (Acute) R53.1 Hypoglycemia (Acute) E16.2 COPD (chronic obstructive pulmonary disease) (Acute) J44.9 Obesity hypoventilation syndrome (Acute) E66.2 Hyperkalemia (Acute) E87.5 Acute on chronic renal failure (Acute) N17.9, N18.9 Endotracheally intubated (Acute) Z97.8 Acute on chronic respiratory failure with hypoxia and hypercapnia (Acute) J96.21, J96.22 AMS (altered mental status) (Acute) R41.82 Abnormal cardiac enzyme level (Acute) R74.8 Hypertension (Acute) I10 Vital Signs: Vital Signs (72 hours) 04/21/20 16:00 04/21/20 17:00 04/21/20 20:00 Temperature 98.2 F 98.2 F Pulse Rate Pulse Rate [Left Brachial] 77 82 Pulse Rate [Right Brachial] Respiratory Rate 20 20 16 Blood Pressure [Left Arm] 132/63 Blood Pressure [Right Arm] 153/67 O2 Sat by Pulse Oximetry 95 95 04/21/20 21:29 04/21/20 22:29 04/22/20 00:00 Temperature 98.4 F Pulse Rate Pulse Rate [Left Brachial] 76 Pulse Rate [Right Brachial] Respiratory Rate 22 16 14 Blood Pressure [Left Arm] 125/59 Blood Pressure [Right Arm] O2 Sat by Pulse Oximetry 97 04/22/20 00:22 04/22/20 02:41 04/22/20 03:41 Temperature Pulse Rate 80 Pulse Rate [Left Brachial] Pulse Rate [Right Brachial] Respiratory Rate 20 14 Blood Pressure [Left Arm] Blood Pressure [Right Arm] O2 Sat by Pulse Oximetry 98 04/22/20 04:00 04/22/20 05:35 04/22/20 08:00 Temperature 97.7 F 98.2 F Pulse Rate 78 Pulse Rate [Left Brachial] 87 98 H Pulse Rate [Right Brachial] Respiratory Rate 14 24 Blood Pressure [Left Arm] Blood Pressure [Right Arm] 115/58 130/59 O2 Sat by Pulse Oximetry 96 97 96 04/22/20 12:00 04/22/20 15:32 04/22/20 16:00 Temperature 97.4 F L 97.0 F L Pulse Rate Pulse Rate [Left Brachial] 68 70 Pulse Rate [Right Brachial] Respiratory Rate 20 20 24 Blood Pressure [Left Arm] Blood Pressure [Right Arm] 69/37 100/51 O2 Sat by Pulse Oximetry 100 94 L 04/22/20 16:32 04/22/20 20:00 04/23/20 00:00 Temperature 97.5 F L 97.0 F L Pulse Rate Pulse Rate [Left Brachial] 68 75 Pulse Rate [Right Brachial] Respiratory Rate 20 12 21 Blood Pressure [Left Arm] 105/50 Blood Pressure [Right Arm] 97/59 O2 Sat by Pulse Oximetry 96 100 04/23/20 00:40 04/23/20 04:00 04/23/20 04:10 Temperature 97.8 F Pulse Rate 75 Pulse Rate [Left Brachial] 79 Pulse Rate [Right Brachial] Respiratory Rate 18 18 Blood Pressure [Left Arm] 167/67 Blood Pressure [Right Arm] O2 Sat by Pulse Oximetry 100 93 L 04/23/20 05:10 04/23/20 05:50 04/23/20 08:00 Temperature 97.6 F Pulse Rate 78 Pulse Rate [Left Brachial] Pulse Rate [Right Brachial] 73 Respiratory Rate 18 20 Blood Pressure [Left Arm] Blood Pressure [Right Arm] 112/54 O2 Sat by Pulse Oximetry 94 L 96 04/23/20 12:00 04/23/20 13:00 04/23/20 13:25 Temperature 97.6 F Pulse Rate 80 Pulse Rate [Left Brachial] Pulse Rate [Right Brachial] 82 Respiratory Rate 24 20 Blood Pressure [Left Arm] Blood Pressure [Right Arm] 105/58 O2 Sat by Pulse Oximetry 93 L 94 L 04/23/20 14:25 04/23/20 16:00 04/23/20 20:00 Temperature 97.6 F 97.6 F Pulse Rate Pulse Rate [Left Brachial] Pulse Rate [Right Brachial] 78 81 Respiratory Rate 18 20 18 Blood Pressure [Left Arm] Blood Pressure [Right Arm] 98/53 103/54 O2 Sat by Pulse Oximetry 94 L 92 L 04/23/20 21:40 04/23/20 22:40 04/24/20 00:00 Temperature 97.5 F L Pulse Rate Pulse Rate [Left Brachial] Pulse Rate [Right Brachial] 76 Respiratory Rate 18 20 12 Blood Pressure [Left Arm] Blood Pressure [Right Arm] 107/55 O2 Sat by Pulse Oximetry 95 04/24/20 00:55 04/24/20 04:00 04/24/20 05:30 Temperature 97.5 F L Pulse Rate 76 77 Pulse Rate [Left Brachial] Pulse Rate [Right Brachial] 77 Respiratory Rate 20 Blood Pressure [Left Arm] Blood Pressure [Right Arm] 117/62 O2 Sat by Pulse Oximetry 95 97 96 04/24/20 08:00 04/24/20 08:15 04/24/20 09:15 Temperature 97.4 F L Pulse Rate Pulse Rate [Left Brachial] Pulse Rate [Right Brachial] 82 Respiratory Rate 20 18 20 Blood Pressure [Left Arm] Blood Pressure [Right Arm] 127/82 O2 Sat by Pulse Oximetry 92 L 04/24/20 12:00 Temperature 97.5 F L Pulse Rate Pulse Rate [Left Brachial] Pulse Rate [Right Brachial] 86 Respiratory Rate 20 Blood Pressure [Left Arm] Blood Pressure [Right Arm] 116/57 O2 Sat by Pulse Oximetry 90 L Labs: Laboratory Last Values WBC 6.1 X10^3/uL (3.6-10.0) 04/24/20 05:15 RBC 3.07 X10^6/uL (3.5-5.4) L 04/24/20 05:15 Hgb 8.5 g/dL (12.0-16.0) L 04/24/20 05:15 Hct 27.1 % (36.0-47.0) L 04/24/20 05:15 MCV 88.2 fL (80.0-100.0) 04/24/20 05:15 MCH 27.5 pg (27.0-34.0) 04/24/20 05:15 MCHC 31.2 g/dL (33.0-35.0) L 04/24/20 05:15 RDW 16.5 % (11.6-16.5) 04/24/20 05:15 Plt Count 229 X10^3/uL (150.0-450.0) 04/24/20 05:15 Plt Count Comment Adequate (ADEQUATE) 04/24/20 05:15 MPV 8.4 fL (7.4-11.0) 04/24/20 05:15 Neut % (Auto) 66.9 % (42.0-75.0) 04/24/20 05:15 Lymph % (Auto) 17.2 % (21.0-51.0) L 04/24/20 05:15 [place] % (Auto) 6.6 % (0.0-13.0) 04/24/20 05:15 Eos % (Auto) 8.3 % (0.9-2.9) H 04/24/20 05:15 Baso % (Auto) 1.0 % (0.2-1.0) 04/24/20 05:15 Neut # (Auto) 4.1 x10^3/uL (2.2-4.8) 04/24/20 05:15 Lymph # (Auto) 1.0 X10^3/uL (1.3-2.9) L 04/24/20 05:15 [place] # (Auto) 0.4 x10^3/uL (0.3-0.8) 04/24/20 05:15 Eos # (Auto) 0.5 x10^3/uL (0.0-0.2) H 04/24/20 05:15 Baso # (Auto) 0.1 X10^3/uL (0.0-0.1) 04/24/20 05:15 Absolute Nucleated RBC 0.2 /100WBC 04/24/20 05:15 Total Counted 100 04/24/20 05:15 Neutrophils % (Manual) 70 % (39-76) 04/24/20 05:15 Band Neutrophils % 4 % (0-10) 04/24/20 05:15 Lymphocytes % (Manual) 12 % (13-43) L 04/24/20 05:15 Monocytes % (Manual) 10 % (4-9) H 04/24/20 05:15 Eosinophils % (Manual) 4 % (0-6) 04/24/20 05:15 Metamyelocytes % 1 04/20/20 05:25 Myelocytes % 1 04/20/20 05:25 Nucleated RBCs 1 04/20/20 05:25 Giant Platelets Noted 04/21/20 05:21 Plt Morphology Comment Normal (NORMAL) 04/24/20 05:15 RBC Morphology Normal (NORMAL) 04/24/20 05:15 PT 13.5 SECONDS (11.8-14.3) 04/04/20 05:55 INR Target Range - 04/04/20 05:55 INR 1.06 (0.8-1.3) 04/04/20 05:55 APTT 37.0 SECONDS (22.9-36.5) H 04/04/20 05:55 PTT Comment - 04/04/20 05:55 Sample Site Rr 04/18/20 18:09 ABG pH 7.260 (7.35-7.45) L 04/18/20 18:09 ABG pCO2 49.0 mmHg (35.0-45.0) H 04/18/20 18:09 ABG pO2 59.0 mmHg (80.0-100.0) L 04/18/20 18:09 ABG HCO3 22.0 mmol/L (22-26) 04/18/20 18:09 ABG O2 Saturation 86.0 % (90-100) L 04/18/20 18:09 ABG Base Excess -5.3 mmol/L (-2.0-2.0) L 04/18/20 18:09 Christos Test Pos 04/18/20 18:09 A-a Gradient 136.0 mmHg 04/18/20 18:09 FiO2 36.0 04/18/20 18:09 Blood Gas Comments Mayi well cb 04/18/20 18:09 Sodium 141 mmol/L (136-145) 04/24/20 05:15 Corrected Sodium TNP 04/24/20 05:15 Potassium 5.9 mmol/L (3.5-5.1) H 04/24/20 12:10 Chloride 111 mmol/L (98-107) H 04/24/20 05:15 Carbon Dioxide 20.4 mmol/L (21-32) L 04/24/20 05:15 BUN 51 mg/dL (7-18) H 04/24/20 05:15 Creatinine 2.73 mg/dL (0.55-1.02) H 04/24/20 05:15 Est GFR (MDRD) Af Amer 22 (>60) L 04/24/20 05:15 Est GFR (MDRD) Non-Af 19 (>60) L 04/24/20 05:15 Glucose 95 mg/dL (65-99) 04/24/20 05:15 POC Glucose (mg/dL) 89 mg/dL (65-99) 04/24/20 12:14 Lactic Acid 0.6 mmol/L (0.4-2.0) 04/16/20 10:05 Calcium 9.1 mg/dL (8.5-10.1) 04/24/20 05:15 Corrected Calcium 10.2 mg/dL (8.5-10.1) H 04/16/20 05:15 Magnesium 2.1 mg/dL (1.7-2.9) 04/24/20 05:15 Total Bilirubin 0.20 mg/dL (0.2-1.0) 04/16/20 05:15 AST 21 Units/L (15-37) 04/16/20 05:15 ALT 10 Units/L (12-78) L 04/16/20 05:15 Alkaline Phosphatase 44 Units/L (46-116) L 04/16/20 05:15 Ammonia 15 umol/L (11-32) 04/16/20 09:04 Creatine Kinase 84 Units/L (26-192) 04/04/20 05:55 CK-MB (CK-2) 4.6 ng/mL (0-4.0) H* 04/04/20 05:55 CK/CKMB % Calc 5.5 % (<4) 04/04/20 05:55 Troponin I 0.34 ng/mL (0-1.5) 04/04/20 05:55 B-Natriuretic Peptide 162 pg/mL (0-79) H 04/10/20 05:41 Total Protein 6.1 g/dL (6.4-8.2) L 04/16/20 05:15 Albumin 2.2 g/dL (3.4-5.0) L 04/23/20 05:10 Globulin 3.8 g/dL (2.5-4.5) 04/16/20 05:15 Albumin/Globulin Ratio 0.6 Ratio (1.1-2.1) L 04/16/20 05:15 Specimen Type Catherized urine 04/16/20 13:45 Urine Color Yellow (YELLOW) 04/16/20 13:45 Urine Appearance Cloudy (CLEAR) 04/16/20 13:45 Urine pH 5.0 (5.0 - 8.0) 04/16/20 13:45 Ur Specific [place] 1.020 (1.000-1.030) 04/16/20 13:45 Urine Protein 4+ (NEGATIVE) 04/16/20 13:45 Urine Glucose (UA) Negative (NEGATIVE) 04/16/20 13:45 Urine Ketones 1+ (NEGATIVE) 04/16/20 13:45 Urine Occult Blood 2+ (NEGATIVE) 04/16/20 13:45 Urine Nitrite Negative (NEGATIVE) 04/16/20 13:45 Urine Bilirubin Negative (NEGATIVE) 04/16/20 13:45 Urine Urobilinogen Normal (NORMAL) 04/16/20 13:45 Ur Leukocyte Esterase 3+ (NEGATIVE) 04/16/20 13:45 Urine RBC 3-5 /HPF (0-3) A 04/16/20 13:45 Urine WBC 30-50 /HPF (0-5) A 04/16/20 13:45 Ur Squamous Epith Cells Rare /HPF (NEGATIVE) 04/16/20 13:45 Ur Renal Epithelial Cell Rare /HPF (NEGATIVE) 04/16/20 13:45 Amorphous Sediment 1+ /HPF (NEGATIVE) 04/16/20 13:45 Urine Bacteria Trace /HPF (NEGATIVE) 04/16/20 13:45 Coarse Granular Casts Few /HPF (NEGATIVE) 04/03/20 21:22 Urine Yeast Many /HPF (NEGATIVE) 04/16/20 13:45 Ur Culture Indicated? Yes/culture set up 04/16/20 13:45 Urine Creatinine 125.85 mg/dL (29-226) 04/11/20 14:01 Miscellaneous Test Resp panel 04/10/20 17:25 Blood Type O POSITIVE 04/06/20 13:00 Antibody Screen Negative 04/06/20 13:00 Crossmatch See Detail 04/06/20 13:00 Reason For Visit: AMS,ABNORMAL CARDIAC ENZYMES,HYPERTENSION Discharge Diagnosis All Active Problems (Updated 04/19/20 @ 05:28 by SHAHBAZ COHEN) Respiratory distress (Acute) Brain TIA (Acute) Delirium (Acute) Enterococcus UTI (Acute) Klebsiella pneumonia (Acute) Generalized weakness (Acute) Hypoglycemia (Acute) COPD (chronic obstructive pulmonary disease) (Acute) Obesity hypoventilation syndrome (Acute) Hyperkalemia (Acute) Acute on chronic renal failure (Acute) Endotracheally intubated (Acute) Acute on chronic respiratory failure with hypoxia and hypercapnia (Acute) AMS (altered mental status) (Acute) Abnormal cardiac enzyme level (Acute) Hypertension (Acute) Dyspnea (Acute) Hypertension associated with stage 2 chronic kidney disease due to type 2 diabetes mellitus (Acute) Uncontrolled type 2 diabetes mellitus (Acute) Acute respiratory failure with hypoxia and hypercapnia (Acute) Acute UTI (Acute) Acute hyperkalemia (Acute) Hallucination (Chronic) Hyperkalemia (Acute) Chronic congestive heart failure (Acute) Chronic kidney disease (CKD) (Acute) Diabetes mellitus (Acute) COPD with exacerbation (Acute) Anemia (Acute) Hypercapnemia (Acute) Respiratory failure, acute (Acute) CKD (chronic kidney disease) stage 4, GFR 15-29 ml/min (Chronic) 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 Pt is to keep follow up appointment as instructed and take medications as ordered. Discharge Medications Discharge Medications: oxycodone Allergy (Verified 04/03/20 12:08) CONTINUE taking the following medications hydralazine 50 mg PO BID 04/03/20 [History] insulin aspart U-100 [Novolog Flexpen U-100 Insulin] 1 unit SUBCUT PRN PRN 04/03/20 [History] New Prescriptions carvedilol 25 mg PO BID 30 Days #120 tab 04/18/20 [Rx] hydrocodone-acetaminophen 1 tab PO Q8H PRN 7 Days #21 tab MDD 3 tabs 04/21/20 [Rx] Discharge Plan Discharge Plan Patient Disposition: SNF Condition: Stable Health Concerns: Post Hospitalization: new medications and changes needed to prevent readmission or further decline. Pt educated and given instructions on all concerns. Plan of Treatment: Continue with present treatment and follow up plan. Pt is to keep follow up appointment as instructed and take medications as ordered. Prescription drug monitoring program results: PDMP reviewed and no concerns identified Prescriptions: New carvedilol 12.5 mg Tablet 25 mg PO BID 30 Days Qty: 120 RF: 0 hydrocodone-acetaminophen 7.5-325 mg Tablet 1 tab PO Q8H MDD 3 tabs PRN (Reason: pain) 7 Days Qty: 21 RF: 0 Continued tizanidine 4 mg tablet 4 mg PO BID RF: 0 famotidine 40 mg tablet 40 mg PO BID RF: 0 simvastatin 40 mg tablet 40 mg PO HS RF: 0 levothyroxine 125 mcg tablet 125 mcg PO DAILY RF: 0 aripiprazole 30 mg tablet 30 mg PO DAILY RF: 0 duloxetine 30 mg capsule,delayed release(DR/EC) 30 mg PO HS RF: 0 Dexilant 60 mg capsule,biphase delayed releas 60 mg PO DAILY RF: 0 carbidopa-levodopa 10-100 mg tablet 1 tab PO BID RF: 0 hydralazine 50 mg tablet 50 mg PO BID RF: 0 insulin aspart U-100 [Novolog Flexpen U-100 Insulin] 100 unit/mL (3 mL) Insulin Pen 1 unit SUBCUT PRN PRNRF: 0 Discontinued alprazolam 1 mg tablet 1 mg PO BID RF: 0 gabapentin 800 mg tablet 800 mg PO DAILY RF: 0 glimepiride 4 mg tablet 4 mg PO BID RF: 0 Levemir U-100 Insulin 100 unit/mL solution 26 unit SUBCUT BID RF: 0 carvedilol 6.25 mg tablet 6.25 mg PO BID RF: 0 benazepril 10 mg tablet 10 mg PO BID RF: 0 dicyclomine 20 mg Tablet 20 mg PO QID RF: 0 hydrocodone-acetaminophen 7.5-325 mg tablet 7.5 tab PO BID RF: 0 bumetanide 2 mg Tablet 2 mg PO TID RF: 0 Orders to Discharge Patient Discharge Orders: Discharge (Routine); Ordered 04/24/20 Ordered By: Loly Carey Follow ups/Referrals Follow ups/Referrals: JANA TORIBIO [Primary Care Provider] - 3 days Instructions Activity Restrictions/Additional Instructions: Can resume blood pressure medications if BP elevated. Stand Alone Forms: Precautions for COVID19, Patient Portal, Social Distancing
[2020-04-24] MEDS ORDERED: SNACK - Diabetic Appropriate PO SCH (20:00)
== END 2020-04-24 15:25 | DRG 189 ==
LOC: MED/SURG 11:54 → ER 11:54 → MED/SURG 19:02 → OBSVTOIN 04-04 03:20
PROVIDERS: ADMIT Internal Medicine; ATTEND Internal Medicine
DX: F41.1 Generalized anxiety disorder; Z20.828 Contact with and (suspected) exposure to other viral communicable diseases; E66.2 Morbid (severe) obesity with alveolar hypoventilation; R94.8 Abnormal results of function studies of other organs and systems; D64.9 Anemia, unspecified; N17.9 Acute kidney failure, unspecified; I50.9 Heart failure, unspecified; R41.0 Disorientation, unspecified; N18.2 Chronic kidney disease, stage 2 (mild); I87.2 Venous insufficiency (chronic) (peripheral); N39.0 Urinary tract infection, site not specified; R26.81 Unsteadiness on feet; I25.10 Atherosclerotic heart disease of native coronary artery without angina pectoris; E87.5 Hyperkalemia; R47.81 Slurred speech; B95.2 Enterococcus as the cause of diseases classified elsewhere; E11.22 Type 2 diabetes mellitus with diabetic chronic kidney disease; I13.0 Hypertensive heart and chronic kidney disease with heart failure and stage 1 through stage 4 chronic kidney disease, or unspecified chronic kidney disease; J96.21 Acute and chronic respiratory failure with hypoxia; J15.0 Pneumonia due to Klebsiella pneumoniae; Z43.3 Encounter for attention to colostomy; D68.9 Coagulation defect, unspecified; R40.4 Transient alteration of awareness; J90 Pleural effusion, not elsewhere classified